=== PATIENT | male | born 1945 | race Caucasian/White ===

== ENCOUNTER → 2020-08-15 13:29 | Outpatient (CLI) | payer MEDICARE, SELFPAY ==
--- NOTE | 2020-08-15 13:34 | CA_ITS ---
APPROVED REPORT Right Lower Extremity Venous Study for DVT. City Recorder: MARCIA LamasT Indications Lower Extremity Pain: Right Lower Extremity Edema: Right Current Smoker CAD EDEMA/PAIN RT CALF,NKI,DM Risk Factors Current Smoker Vein Imaging CFV (R): compressive, spontaneous, phasic, augmentation FEM (R): compressive, spontaneous, phasic, augmentation POP (R): compressive, spontaneous, phasic, augmentation PTV (R): Compressible GSV (R): Compressible Peroneals (R):Compressible GAS (R): Compressible Findings Study suggests no evidence of DVT of the right lower extremity. Study suggests no evidence of SVT of the right lower extremity. 2.8 cm lymph node seen rt groin. Conclusion Study suggests no evidence of DVT of the right lower extremity. Study suggests no evidence of SVT of the right lower extremity. 2.8 cm lymph node seen rt groin. Critical Notification Physician Notified Date: 08/15/2020 Time: 14:12 Physician Name: Hiro Electronically signed by : Cyrus Hsu MD 08/15/2020 14:21:10
== END ==
PROVIDERS: PCP Family Medicine; Visit Provider Family Medicine
DX: M79.661 Pain in right lower leg (principal); R60.0 Localized edema
CPT/HCPCS: 93971

== ENCOUNTER → 2020-09-18 13:39 | Outpatient (CLI) | payer MEDICARE, SELFPAY ==
[2020-09-18 14:19] LABS: Alanine Aminotransferase 28 U/L (12-78); Albumin Level 4.1 g/dl (3.5-5.0); Albumin/Globulin Ratio 1.4 (1.1-1.8); Alkaline Phosphatase 104 U/L (38-126); Anion Gap 15.8 mEq/L (5-15); Aspartate Amino Transferase 32 U/L (17-59); Bilirubin,Total 0.5 mg/dl (0.2-1.3); Blood Urea Nitrogen 18 mg/dl (9-20); Calcium 9.3 mg/dl (8.4-10.2); Carbon Dioxide 28 mmol/L (22.0-30.0); Chloride 100 mmol/L (98-107); Chol/HDL Ratio 2.7 (1-3.5); Cholesterol 84 mg/dl (140-200); Estimated Glomerular Filt Rate 94 ml/min (>60); GFR (African American) 114 ML/MIN (>60); Globulin 2.9 g/dL (1.3-3.2); Glucose 313 mg/dl (74-100); HDL Cholesterol 31 mg/dl (40-60); Potassium 4.8 mmoL/L (3.5-5.1); Sodium 139 mmol/L (136-145); Triglycerides 204 mg/dl (30-150); VLDL Cholesterol 41 mg/dL (0-40)
[2020-09-18 14:20] LABS: Basophils # 0.1 K/mm3 (0-0.2); Basophils % 1.2 % (0.1-2.0); Eosinophils # 0.1 K/mm3 (0.0-0.4); Hematocrit 48.2 % (42.0-52.0); Lymphocytes % 27.5 % (10-50); Mean Corpuscular HGB Conc 33.2 g/dL (31.8-35.4); Mean Corpuscular Hemoglobin 31.8 pg (27.0-31.2); Mean Corpuscular Volume 95.9 fl (80-94); Mean Platelet Volume 10.3 fl (7.4-10.4); Monocytes # 0.4 K/mm3 (0.1-1.0); Monocytes % 5.5 % (1.7-9.3); Neutrophils # 4.6 K/mm3 (1.8-7.8); Neutrophils % 63.8 % (37.0-80.0); Platelet Count 143 K/mm3 (142-424); Red Blood Count 5.03 M/mm3 (4.60-6.20); Red Cell Distribution Width 14.1 % (11.5-17.5); White Blood Count 7.2 K/mm3 (4.8-10.8)
[2020-09-18 14:47] LABS: Direct LDL Cholesterol < 30.00 mg/dL (100-129)
[2020-09-18 14:49] LABS: Hemoglobin A1C 10.9 % (4.0-6.0)
[2020-09-18 14:50] LABS: Thyroid Stimulating Hormone 1.97 uIU/mL (0.465-4.68)
[2020-09-18 20:12] LABS: 25-OH Vitamin D, Total 33.8 ng/mL (30-100)
== END ==
PROVIDERS: Visit Provider Family Medicine
DX: E55.9 Vitamin D deficiency, unspecified (principal); E78.5 Hyperlipidemia, unspecified; I10 Essential (primary) hypertension; I25.10 Atherosclerotic heart disease of native coronary artery without angina pectoris; E11.9 Type 2 diabetes mellitus without complications; Z09 Encounter for follow-up examination after completed treatment for conditions other than malignant neoplasm; Z79.84 Long term (current) use of oral hypoglycemic drugs
CPT/HCPCS: 80053; 80061; 82306; 83036; 84436; 84443; 85025

== ENCOUNTER → 2020-10-09 09:53 | Outpatient (CLI) | payer MEDICARE, SELFPAY ==
--- NOTE | 2020-10-09 | CA_ITS ---
APPROVED REPORT EXAM: Comprehensive 2D, Doppler, and color-flow Echocardiogram Sales Promotion Coordinator: Namrata Cade RT(R) Ht: 5 ft 11 in Wt: 217lbs BSA: 2.18 BP: 97/58 mmHg Indications: CAD, pedal edema, HTN, DM, hyperlipidemia, Abn EKG 2D Dimensions LVOT 2.04 cm (M/F) 1.5-2.5 M-Mode Dimensions RVDd 4.41 cm (0.9-2.6) LA Diam 3.96 cm (1.9-4.0) LVDd 4.79 cm (3.5-5.7) Ao Diam 3.01 cm (2.0-3.7) LVDs 3.52 cm (3.5-5.7) IVSd 0.94 cm (0.6-1.1) PWd 0.89 cm (0.6-1.1) EF (Teich) 51.80% FS 26.50% EDV (Teich) 107.00 mL ESV (Teich) 51.60 mL LV Diastology E Decel Time 353.00 (160-240 msec) E/A Ratio 0.8 MED E' 8.30 (< 7 cm/sec) E'/MED E' Ratio 8.84 (>14) LAT E' 8.90 (<10 cm/sec) E/LAT E' Ratio 8.25 (>14) Mitral Valve MV E Max Rei. 73.00 (40-130 cm/s) MV A Velocity 91.00 (40-130 cm/s) E/A Ratio 0.80 MV Decel. Time 353.00 (160-240 ms) MV PHT 103.00 ms Left Ventricle Left atrium is mildly enlarged, left ventricle is normal size, mild concentric left ventricular hypertrophy, visually estimated ejection fraction 55% with no regional wall motion abnormality, grade 1 diastolic dysfunction seen without tissue Doppler evidence of raise left atrial pressure. Right Ventricle Right atrium and right ventricle mildly enlarged with normal contractility. Aortic Valve Aortic valve is minimally thickened and fibrosed, there is no aortic stenosis or aortic insufficiency. Mitral Valve Mitral valve is grossly normal, there is trace mitral regurgitation. Tricuspid Valve Tricuspid valve grossly normal, there is trace tricuspid regurgitation, tricuspid regurgitation jet velocity is inadequate for calculation of the right ventricular systolic pressure. Pulmonic Valve Pulmonic valve is poorly visualized. Great Vessels Aortic root is normal size. Pericardium No significant pericardial effusion noted. Conclusion 1. Mild biatrial enlargement, normal left ventricular size, mild concentric left ventricular hypertrophy, visually estimated ejection fraction 55% with no regional wall motion abnormality, grade 1 diastolic dysfunction seen without tissue Doppler evidence of raise left atrial pressure. 2. Mildly enlarged right ventricle with normal contractility. 3. No significant pericardial effusion noted. Electronically signed by : Ismael Johnson MD 10/09/2020 16:18:10
--- NOTE | 2020-10-09 09:54 | US_ITS ---
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 Normal waveforms at all other levels on the right. Diminished pulses on the right. Normal pulses and waveforms at all levels on the left. Conclusion RT MC: 0.7 LT MC: 0.9 RT TBI: 0.3 LT TBI: 0.4 Weakened right ankle waveform. Normal waveforms at all other levels on the right. Diminished pulses on the right. Normal pulses and waveforms at all levels on the left. Moderate rt arterial disease Electronically signed by : Prem Hudson MD 10/09/2020 16:05:29
--- NOTE | 2020-10-09 10:47 | NM_ITS ---
APPROVED REPORT Exam: Nuclear Stress Test Indication: CAD, DM, Tobacco use, Family history, Fatigue Patient Location: Outpatient Stress Tech: Juliane ERYES Tech:JAIME Jenkins RT(R)(N) Ht: 5 ft 11 in Wt: 215 lbs Bra Size: 149 HR: 71 bpm BP: 149/68 mmHg BSA: 2.17 m2 BMI: 29.9 History: CAD, DM, Tobacco use, Family history, Fatigue Procedure: Patient received a 0.4 mg of intravenous Lexiscan, resting heart rate 71 bpm, resting blood pressure 149/68 mmHg, with Lexiscan maximum heart rate achived was 84 bpm which is Less than 85 % of the maximum predicted heart rate and blood pressure was 149/68 mmHg. With Lexiscan, patient denied any complaint of chest pain. Electrocardiogram Resting electrocardiogram shows sinus rhythm, with Lexiscan there is less than 1.[address] segment depression noted from the baseline EKG. The EKG portion of the Lexiscan is nondiagnostic. Cardiac Stress and Resting SPECT Images: Cardiac Stress and Resting SPECT images were obtained using technetium 99m Myoview 32.2 mCi stress and 10.30 mCi at rest. Patient unable to lay on belly for Prone images. Gated SPECT for analysis of segmental wall motion and calculation of the ejection fraction also done. Cardiac stress and resting SPECT images show moderate to large sized area of reversible ischemia involving the inferior and inferior apical wall, there is transient ischemic dilatation of the left ventricle is also seen. Computer derived ejection fraction is 66% with no regional wall motion abnormality, right ventricle is normal size and contractility. Conclusion: 1. The EKG portion of the Lexiscan is nondiagnostic. 2. Scintigraphic evidence of reversible ischemia involving the inferior and inferior apical wall, there is transient ischemic dilatation of the left ventricle seen, raising the concerns for presence of multivessel coronary artery disease. Computer derived ejection fraction is 66% with no regional wall motion abnormality, right ventricle is normal size and contractility. 3. Abnormal Lexiscan Myoview study. Electronically signed by : Ismael Johnson MD 10/09/2020 15:03:35
--- NOTE | 2020-10-09 13:39 | CA_ITS ---
APPROVED REPORT Exam: Pharmacologic Technologist: Astrid Cruz, Ht: 5 ft 11 in Wt: 217 lbs BSA: 2.18 m2 HR: 68 bpm BP: 149/68 mmHg Rhythm: NSR, 1 AVB Medical History Medical History: HTN, Hyperlipidemia, Diabetes Medications: Amlodipine,,,,, Lisinopril,,,,, Aspirin,,,,, Metformin,,,,, Metoprolol Tartrate,,,,, Atorvastatin,,,,, GlYBURIDE,,,,, Pregabalin,,,,, DApagliflozin,,,,, Isosorbide Monoitrate ER,,,,, Furosemide,,,,, OxYCODONE-ACETAMINOPHEN,,,,, Allergies: No known drug allergies Cardiac Risk Factors: HTN, Hyperlipidemia, Smoking Stress Test Details Test: LEXISCAN HR Resting HR: 71 bpm Max Heart Rate (APMHR): 144.319115 bpm Max HR Achieved: 84 bpm Target HR (85% APMHR): 122.604925 bpm % of APMHR: 58.33 Recovery HR: 80 bpm BP Resting BP: 149/68 mmHg Max BP: 149/68 mmHg Recovery BP: 135.0/63.0 mmHg ECG Resting ECG: NSR, 1 AVB Clinical Exercise duration: 04:00 min Highest Stage Achieved: Stress ECG Conclusion PT HAD MILD VELAZQUEZ. NO CP. NO ARRHYTHMIAS/ECTOPY. NO SIGNIFICANT ST-T CHANGES. UNREMARKABLE LEXISCAN STRESS. MYOVIEW IMAGES REPORTED SEPARATELY. Electronically signed by : Ismael Johnson MD 10/09/2020 14:48:38
== END ==
PROVIDERS: PCP Family Medicine; Visit Provider Urology
DX: E11.9 Type 2 diabetes mellitus without complications (principal); E78.5 Hyperlipidemia, unspecified; I10 Essential (primary) hypertension; I25.10 Atherosclerotic heart disease of native coronary artery without angina pectoris; L81.9 Disorder of pigmentation, unspecified; M47.816 Spondylosis without myelopathy or radiculopathy, lumbar region; R94.31 Abnormal electrocardiogram [ECG] [EKG]; Z95.5 Presence of coronary angioplasty implant and graft; Z79.84 Long term (current) use of oral hypoglycemic drugs; R60.0 Localized edema; I73.9 Peripheral vascular disease, unspecified
CPT/HCPCS: 78452; 93017; 93306; 93923; A9502; J2785

== ENCOUNTER → 2020-11-18 14:00 | Outpatient (CLI) | payer MEDICARE, SELFPAY ==
[2020-11-18 17:16] LABS: Creatinine,Urine Random 19 mg/dL (Not Estab.)
[2020-11-18 17:18] LABS: Microalbumin < 6.000 mg/L (0-16.7)
== END ==
PROVIDERS: Visit Provider Family Medicine
DX: E11.9 Type 2 diabetes mellitus without complications (principal); Z79.84 Long term (current) use of oral hypoglycemic drugs
CPT/HCPCS: 82043; 82570

== ENCOUNTER → 2020-12-22 18:10 | Outpatient (CLI) | payer MEDICARE, SELFPAY | PROVIDERS: Visit Provider Family Medicine | DX: N39.0 Urinary tract infection, site not specified (principal) | CPT/HCPCS: 87086 ==

== ENCOUNTER 2021-01-15 09:46 | Day surgery (SDC) | payer MEDICARE, SELFPAY ==
[2021-01-15] VITALS (11 sets, daily range): BP systolic 113–140; BP diastolic 50–77; PULSE 74–81; RESP 20; O2SAT 90–100; BMI 29.4
[2021-01-15 09:55] LABS: Coronavirus 19, PCR Not Detected (NotDetected); Influenza A, PCR Not Detected (NotDetected); Influenza B, PCR Not Detected (NotDetected)
[2021-01-15 10:07] LABS: Basophils # 0.1 K/mm3 (0-0.2); Basophils % 1.5 % (0.1-2.0); Eosinophils # 0.2 K/mm3 (0.0-0.4); Eosinophils % 2.8 % (0.1-12.0); Hematocrit 45.5 % (42.0-52.0); Lymphocytes # 1.5 K/mm3 (0.7-4.5); Lymphocytes % 22.6 % (10-50); Mean Corpuscular HGB Conc 33.1 g/dL (31.8-35.4); Mean Corpuscular Hemoglobin 32.2 pg (27.0-31.2); Mean Corpuscular Volume 97.4 fl (80-94); Mean Platelet Volume 9.6 fl (7.4-10.4); Monocytes # 0.4 K/mm3 (0.1-1.0); Monocytes % 6.1 % (1.7-9.3); Neutrophils # 4.3 K/mm3 (1.8-7.8); Platelet Count 165 K/mm3 (142-424); Red Blood Count 4.67 M/mm3 (4.60-6.20); Red Cell Distribution Width 13.9 % (11.5-17.5); White Blood Count 6.5 K/mm3 (4.8-10.8)
--- NOTE | 2021-01-15 10:14 | IR_ITS ---
APPROVED REPORT Patient Location: Outpatient PROCEDURES Left heart catheterization Left ventriculogram Selective coronary angiogram INDICATION Known coronary artery disease, Preoperative evaluation, Abnormal Myoview Informed consent was obtained prior to the procedure. COMPLICATIONS none Estimated Blood Loss: less than 10 ml TECHNIQUE One percent lidocaine used to anesthetize the right anterior aspect of the wrist. The right radial artery was accessed via the Seldinger technique. A 6 Malian sheath was placed in the right radial artery. 2.5 mg of verapamil, 800 mcg of nitroglycerin, 1mg Lidocaine and 5000 U Heparin were given through the arterial sheath. The trap catheter was also used to perform left heart catheterization, left ventriculogram and selective coronary angiogram. At the end of the procedure the sheath was removed good hemostasis was achieved using Traclet band, patient was transferred to the postop holding area in stable condition. ANGIOGRAPHIC RESULTS The left main artery Normal The left anterior descending artery Has mild proximal 10 to 20% luminal irregularities with a mid vessel 30% concentric stenosis The circumflex artery Is a nondominant vessel giving off a small and medium sized obtuse marginal artery. Proximal to the 1st obtuse marginal artery there is a stent which has smooth concentric 80% in-stent restenosis accompanied by distal TONY-3 flow. The stent in the circumflex artery is patent in its proximal segment and then has a concentric 90% stenosis and a 1.5 mm vessel still accompanied by TONY III flow The right coronary artery Is a large dominant vessel and has proximal 20% stenoses mid vessel 30% diffuse stenoses The CASTLE ventriculogram reveals Normal 65% The left ventricular end-diastolic pressure 15 mmHg IMPRESSION Severe single-vessel coronary disease in a small nondominant circumflex artery as described above Widely patent LAD with a widely patent dominant right coronary artery Normal ejection fraction with normal left ventricular diastolic pressure PLAN 1. Patient is not experiencing angina pectoris therefore there is no benefit to revascularizing a nondominant circumflex artery preoperatively. Patient is still in low and acceptable risk to proceed with outpatient cystoscopy as well as cystoscopic mediated therapy such as bladder scrapings and/or debridement of malignancy. 2. Revascularizing the circumflex artery with only be a vanity procedure and would not reduce patient's perioperative risk, which is already low despite the above lesions, and would further delay surgery for gross hematuria by ongoing usage of dual antiplatelet therapy which could be potentially dangerous 3. Based on the normal LV function, patient being asymptomatic, low risk surgical procedure, and nondominant single-vessel disease, patient is a low risk to proceed with surgery and should proceed as soon as technically feasible by the performing surgery and surgeon 4. Continue risk factor modification 5. Recommend perioperative beta-blockers 6. If patient develops recurrent recalcitrant angina pectoris in the future refractory to maximized antianginal medications, only then what I recommend any form of percutaneous revascularization. 7. I discussed the case with Dr. Lazar and encouraged patient to proceed with surgery Electronically signed by : Adam Rainey MD 01/15/2021 12:38:52
[2021-01-15 10:41] LABS: Anion Gap 13.7 mEq/L (5-15); Blood Urea Nitrogen 16 mg/dl (9-20); Calcium 9.3 mg/dl (8.4-10.2); Carbon Dioxide 29 mmol/L (22.0-30.0); Chloride 101 mmol/L (98-107); Creatinine Clearance Estimated 85 mL/min (50-200); Estimated Glomerular Filt Rate 94 ml/min (>60); GFR (African American) 114 ML/MIN (>60); Glucose 255 mg/dl (74-100); Potassium 4.7 mmoL/L (3.5-5.1); Sodium 139 mmol/L (136-145)
== END 2021-01-15 15:06 | disposition home or self-care (01) ==
LOC: CATHLAB 09:46
PROVIDERS: Physician Assistant; Visit Provider Internal Medicine
DX: E11.9 Type 2 diabetes mellitus without complications (principal); E78.5 Hyperlipidemia, unspecified; I10 Essential (primary) hypertension; I25.10 Atherosclerotic heart disease of native coronary artery without angina pectoris; R60.9 Edema, unspecified; R94.31 Abnormal electrocardiogram [ECG] [EKG]; R94.39 Abnormal result of other cardiovascular function study; Z95.5 Presence of coronary angioplasty implant and graft; Z79.899 Other long term (current) drug therapy; Z79.4 Long term (current) use of insulin; T82.855A Stenosis of coronary artery stent, initial encounter; F17.210 Nicotine dependence, cigarettes, uncomplicated; Z20.822 Contact with and (suspected) exposure to COVID-19; Y83.1 Surgical operation with implant of artificial internal device as the cause of abnormal reaction of the patient, or of later complication, without mention of misadventure at the time of the procedure
CPT/HCPCS: 36415; 80048; 85025; 93458; 99152; C1725; C1769; C9803; J1644; Q9967; U0003; U0005

== ENCOUNTER → 2022-10-20 12:00 | Outpatient (CLI) | payer MEDICARE, SELFPAY ==
[2022-10-20 19:16] LABS: Basophils % 0.4 % (0.1-2.0); Eosinophils # 0.1 K/mm3 (0.0-0.4); Eosinophils % 1.9 % (0.1-12.0); Hematocrit 48.2 % (42.0-52.0); Hemoglobin 15.5 g/dL (14.1-18.0); Lymphocytes # 1.8 K/mm3 (0.7-4.5); Lymphocytes % 26.7 % (10-50); Mean Corpuscular HGB Conc 32.1 g/dL (31.8-35.4); Mean Corpuscular Hemoglobin 30.9 pg (27.0-31.2); Mean Corpuscular Volume 96.3 fl (80-94); Mean Platelet Volume 9.8 fl (7.4-10.4); Monocytes # 0.5 K/mm3 (0.1-1.0); Monocytes % 6.5 % (1.7-9.3); Neutrophils # 4.4 K/mm3 (1.8-7.8); Neutrophils % 64.5 % (37.0-80.0); Platelet Count 233 K/mm3 (142-424); Red Blood Count 5.01 M/mm3 (4.60-6.20); White Blood Count 6.9 K/mm3 (4.8-10.8)
[2022-10-20 20:10] LABS: Alanine Aminotransferase 21 U/L (12-78); Albumin Level 3.9 g/dl (3.5-5.0); Albumin/Globulin Ratio 1.2 (1.1-1.8); Alkaline Phosphatase 100 U/L (38-126); Anion Gap 15.9 mEq/L (5-15); Aspartate Amino Transferase 25 U/L (17-59); Bilirubin,Total 0.4 mg/dl (0.2-1.3); Blood Urea Nitrogen 13 mg/dl (9-20); Calcium 9.3 mg/dl (8.4-10.2); Carbon Dioxide 27 mmol/L (22.0-30.0); Chloride 96 mmol/L (98-107); Chol/HDL Ratio 2.3 (1-3.5); Cholesterol 84 mg/dl (140-200); Estimated Glomerular Filt Rate 109 ml/min (>60); GFR (African American) 132 ML/MIN (>60); Globulin 3.2 g/dL (1.3-3.2); Glucose 268 mg/dl (74-100); HDL Cholesterol 37 mg/dl (40-60); Potassium 4.9 mmoL/L (3.5-5.1); Sodium 134 mmol/L (136-145); Total Protein,Serum 7.1 g/dl (6.3-8.2); Triglycerides 84 mg/dl (30-150); VLDL Cholesterol 17 mg/dL (0-40)
[2022-10-20 20:21] LABS: Direct LDL Cholesterol 34.46 mg/dL (100-129)
== END ==
PROVIDERS: PCP Family Medicine; Visit Provider Family Medicine
DX: I10 Essential (primary) hypertension (principal); Z76.89 Persons encountering health services in other specified circumstances; L60.3 Nail dystrophy; R73.09 Other abnormal glucose
CPT/HCPCS: 80053; 80061; 83036; 85025

== ENCOUNTER → 2022-11-17 09:05 | Outpatient (CLI) | payer MEDICARE, SELFPAY ==
--- NOTE | 2022-11-17 09:10 | CA_ITS ---
APPROVED REPORT EXAM: Comprehensive 2D, Doppler, and color-flow Echocardiogram Residential Door Unit Installer: Sole Fernandez CRT Ht: 6 ft 0 in Wt: 205lbs BSA: 2.15 BP: 135/54 mmHg Indications: Abnormal ECG, Pre-Op Clearance, Shortness of Breath, CAD 2D Dimensions LVOT 1.96 cm (M/F) 1.5-2.5 LA Volume 59.10 mL LA Volume Index 26.70 mL/m2 (M/F) 16-34 M-Mode Dimensions RVDd 3.56 cm (0.9-2.6) LA Diam 4.11 cm (1.9-4.0) LVDd 4.45 cm (3.5-5.7) Ao Diam 3.81 cm (2.0-3.7) LVDs 2.76 cm (3.5-5.7) IVSd 1.53 cm (0.6-1.1) PWd 0.51 cm (0.6-1.1) EF (Teich) 68.40% FS 38.00% EDV (Teich) 90.10 mL TAPSE 2.17 (<1.7) ESV (Teich) 28.50 mL LV Diastology E Decel Time 423.00 (160-240 msec) E/A Ratio 0.76 MED E' 6.10 (< 7 cm/sec) MED A' 8.20 cm/s E'/MED E' Ratio 12.36 (>14) LAT E' 8.10 (<10 cm/sec) LAT A' 10.50 cm/s E/LAT E' Ratio 9.31 (>14) Aortic Valve AO Peak GR. 8.50 mmHg Mitral Valve MV A Velocity 100.00 (40-130 cm/s) E/A Ratio 0.76 MV Decel. Time 423.00 (160-240 ms) Pulmonary Valve PV Peak Velocity 93.00 (50-150 cm/s) Tricuspid Valve TR P. Velocity 272.00 cm/s RAP Estimate 10.00 mmHg RVSP 39.50 mmHg Left Ventricle The left ventricle is normal size. The left ventricular systolic function is normal. The left ventricular ejection fraction is within the normal range. There is increased LV wall thickness. There is normal LV segmental wall motion. Grade I diastolic dysfunction is present. LVEF is 55%. Right Ventricle The right ventricle is normal size. The right ventricular systolic function is normal. Atria The left atrium size is normal. The right atrium size is normal. There is no Doppler evidence of interatrial shunt. Aortic Valve The aortic valve is mildly thickened. There is no aortic valvular stenosis. Trace aortic regurgitation. Mitral Valve The mitral valve leaflets are mildly thickened. No evidence of mitral valve stenosis. Trace mitral regurgitation. Tricuspid Valve The tricuspid valve leaflets are thin and pliable. Trace tricuspid regurgitation. RVSP is normal. Pulmonic Valve The pulmonary valve is normal in structure. Trace pulmonic regurgitation. Great Vessels The aortic root is normal in size. The ascending aorta is normal in size. IVC is normal in size and collapses >50% with inspiration. Pericardium There is no pericardial effusion. A fat pad is noted. Other Information Study Quality: Fair Conclusion Normal biventricular systolic function. Grade I diastolic dysfunction. No significant valvular stenosis or regurgitation. Electronically signed by : Annika Davis, 11/18/2022 12:16:21
== END ==
PROVIDERS: PCP Family Medicine; Visit Provider Physician Assistant
DX: C67.9 Malignant neoplasm of bladder, unspecified (principal); E11.9 Type 2 diabetes mellitus without complications; E78.5 Hyperlipidemia, unspecified; I10 Essential (primary) hypertension; I25.10 Atherosclerotic heart disease of native coronary artery without angina pectoris; Z01.810 Encounter for preprocedural cardiovascular examination; Z72.0 Tobacco use; Z79.4 Long term (current) use of insulin; Z79.84 Long term (current) use of oral hypoglycemic drugs
CPT/HCPCS: 93306

== ENCOUNTER → 2023-01-26 08:38 | Outpatient (CLI) | payer MEDICARE, SELFPAY ==
[2023-01-26 19:24] LABS: Alanine Aminotransferase 23 U/L (12-78); Albumin Level 3.8 g/dl (3.5-5.0); Albumin/Globulin Ratio 1.2 (1.1-1.8); Alkaline Phosphatase 77 U/L (38-126); Anion Gap 9.9 mEq/L (5-15); Aspartate Amino Transferase 30 U/L (17-59); Bilirubin,Total 0.5 mg/dl (0.2-1.3); Blood Urea Nitrogen 21 mg/dl (9-20); Calcium 8.8 mg/dl (8.4-10.2); Carbon Dioxide 32 mmol/L (22.0-30.0); Chloride 98 mmol/L (98-107); Estimated Glomerular Filt Rate 109 ml/min (>60); GFR (African American) 132 ML/MIN (>60); Globulin 3.1 g/dL (1.3-3.2); Glucose 169 mg/dl (74-100); Potassium 4.9 mmoL/L (3.5-5.1); Sodium 135 mmol/L (136-145); Total Protein,Serum 6.9 g/dl (6.3-8.2)
[2023-01-26 19:32] LABS: Hemoglobin A1C 10.5 % (4.0-6.0)
== END ==
LOC: LAB.DROPOF 01-27 08:39
PROVIDERS: PCP Family Medicine; Visit Provider Family Medicine
DX: Z79.4 Long term (current) use of insulin; Z79.84 Long term (current) use of oral hypoglycemic drugs; E11.65 Type 2 diabetes mellitus with hyperglycemia
CPT/HCPCS: 80053; 83036

== ENCOUNTER 2023-08-24 15:54 | Observation (INO) | payer MEDICARE, SELFPAY ==
[2023-08-24] VITALS (12 sets, daily range): BP systolic 118–196; BP diastolic 57–96; PULSE 60–63; RESP 16–19; TEMP 36.8–37; O2SAT 91–98; BMI 20.3; BMI 28.5
--- NOTE | 2023-08-24 07:14 | IR_ITS ---
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 COMPLICATIONS None Estimated Blood Loss: Less than 10 mls TECHNIQUE One percent lidocaine used to anesthetize the right anterior aspect of the wrist. The right radial artery was accessed via the Seldinger technique. A 6 Singaporean sheath was placed in the right radial artery. 2.5 mg of Verapamil, 800 mcg of nitroglycerin, 1mg Lidocaine and 5000 U Heparin were given through the arterial sheath. A PV multi curve catheter was placed in the distal abdominal aorta where distal abdominal aortography was performed. The catheter was then placed into the right common iliac artery right common iliac artery antegrade angiography was performed with unilateral runoff to the right foot. This was repeated into the left common iliac artery with unilateral runoff to the left foot. Following this 1% lidocaine was used anesthetize the right groin the right femoral artery was accessed via the Salinger technique and a 6 Singaporean sheath was placed in the right femoral artery. A rim catheter was used to cannulate the left common iliac artery where an advantage wire was then placed under fluoroscopic guidance into the left superficial femoral artery. A 45 cm 7 Singaporean sheath was advanced and angiography was performed. This demonstrated there was only moderate disease in the left SFA. Digital subtraction/masking was not able to be performed with the left leg runoff therefore the SFA disease was initially overestimated. Once repeat angiography was performed it was decided not to proceed with intervention involving the left SFA. At this point the catheter was pulled back and a 9 mm x 27 mm balloon mounted bare-metal stent was deployed at 12 елена and left common iliac artery reducing the calcified cleft like stenosis to 0%. Excellent angiographic results were obtained. At the end the procedure the apparatus was removed the groin is reprepped closure change sheath was removed and hemostasis was achieved using Perclose device patient was transferred to the postop putting in stable addition ANGIOGRAPHIC RESULTS Distal abdominal aorta is tortuous but widely patent Right common iliac artery has 20 and 30% calcifications. The right internal iliac artery is patent the right external iliac artery has 20 to 30% calcifications. The right common femoral artery is calcified with 20% calcifications. The right profunda femoris artery is widely patent. The right superficial femoral artery has 90% calcified disease at Cb's canal. The right popliteal artery is patent in the proximal and mid segment and then distally has calcified 50 and 60% plaque. The right anterior tibialis artery is subtotally occluded the right peroneal artery appears to be widely patent into the right foot and then collateralizes the anterior and posterior tibialis artery. The right posterior tibialis artery is occluded Left common iliac artery has calcified 60 to 70% eccentric plaque. The left internal iliac artery appears occluded the left external iliac artery is patent the left profunda femoris artery is patent. The left superficial femoral artery has diffuse 50 and 60% stenoses. The left popliteal artery is widely patent. Distally below the knee the anterior and posterior tibialis arteries appear subtotally occluded as does the peroneal artery. 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 Aspirin Plavix 2. Patient can be brought back to the [facility] in 3 weeks and undergo left groin access with plans to perform shockwave lithotripsy and drug-coated balloon angioplasty to the right SFA/popliteal artery 3. Infrageniculate disease is best managed medically 4. Risk factor modification Electronically signed by : Adam Rainey MD 08/24/2023 14:50:39
[2023-08-24 09:25] LABS: Basophils # 0.1 K/mm3 (0-0.2); Basophils % 1.6 % (0.1-2.0); Eosinophils # 0.2 K/mm3 (0.0-0.4); Eosinophils % 2.5 % (0.1-12.0); Hematocrit 46.6 % (42.0-52.0); Hemoglobin 15.3 g/dL (14.1-18.0); Lymphocytes # 1.5 K/mm3 (0.7-4.5); Lymphocytes % 23.7 % (10-50); Mean Corpuscular HGB Conc 32.7 g/dL (31.8-35.4); Mean Corpuscular Hemoglobin 31.3 pg (27.0-31.2); Mean Corpuscular Volume 95.7 fl (80-94); Mean Platelet Volume 9.6 fl (7.4-10.4); Monocytes # 0.4 K/mm3 (0.1-1.0); Monocytes % 5.8 % (1.7-9.3); Neutrophils # 4.2 K/mm3 (1.8-7.8); Neutrophils % 66.4 % (37.0-80.0); Platelet Count 194 K/mm3 (142-424); Red Blood Count 4.87 M/mm3 (4.60-6.20); Red Cell Distribution Width 14.9 % (11.5-17.5); White Blood Count 6.4 K/mm3 (4.8-10.8)
[2023-08-24 09:28] LABS: Chloride 99 mmol/L (98-107); Sodium 134 mmol/L (136-145)
[2023-08-24 09:29] LABS: Potassium 4.9 mmoL/L (3.5-5.1)
[2023-08-24 09:31] LABS: Blood Urea Nitrogen 11 mg/dl (9-20); Creatinine Clearance Estimated 81 mL/min (50-200); Estimated Glomerular Filt Rate 130 ml/min (>60); GFR (African American) 157 ML/MIN (>60)
[2023-08-24 09:32] LABS: Anion Gap 9.9 mEq/L (5-15); Carbon Dioxide 30 mmol/L (22.0-30.0); Glucose 320 mg/dl (74-100)
[2023-08-24] MEDS: 0.9 % SODIUM CHLORIDE 500 ML 25 ML IV (10:54)
[2023-08-24] MEDS: NITROGLYCERIN 800MCG/8ML SYR (CATH LAB) 800 MCG IA (10:54)
[2023-08-24] MEDS: HEPARIN 1,000 UNITS/500ML NS (CATH LAB) 3000 UNIT IV (10:54)
[2023-08-24] MEDS: HEPARIN 1,000 UNITS/ML 10ML VIAL (CATH LAB) 10000 UNIT IV ×2 (10:55→11:39)
[2023-08-24] MEDS: LIDOCAINE 1% 10ML MDV 20 ML IJ (10:56)
[2023-08-24] MEDS: diphenhydrAMINE 50MG/ML VIAL 50 MG IV (10:56)
[2023-08-24] MEDS: VERAPAMIL 2.5MG/ML 2ML VIAL 2.5 MG IV (10:56)
[2023-08-24] MEDS: MIDAZOLAM HCL 1MG/1ML 5ML VIAL 1 MG IV (11:55)
[2023-08-24] MEDS: FENTANYL 100MCG/2ML VIAL 50 MCG IV ×2 (11:55→11:58)
[2023-08-24] MEDS: CLOPIDOGREL 300MG TABLET 300 MG PO (12:00)
[2023-08-24] MEDS: MORPHINE 4MG/ML SYRINGE 4 MG IV (13:33)
--- NOTE | 2023-08-24 14:22 | SUR.PHASEII ---
Urine virgil albarran MD notified, no new orders.
[2023-08-24] MEDS: IOPAMIDOL-250 (51%) 100ML BOT 200 ML IV (15:00)
[2023-08-24 15:01] LABS: CATHL Activated Clotting Time 338 SEC (74-125)
--- NOTE | 2023-08-24 15:29 | SUR.PHASEII ---
PATIENT HAD 2200ML URINE OUTPUT- BRIGHT RED- MD AWARE
--- NOTE | 2023-08-24 16:05 | PC.NURSE ---
arrived by w/c from microbiology lab manager
[2023-08-24 17:37] LABS: Basophils # 0.1 K/mm3 (0-0.2); Basophils % 1.1 % (0.1-2.0); Eosinophils # 0.1 K/mm3 (0.0-0.4); Eosinophils % 1.3 % (0.1-12.0); Hematocrit 49.8 % (42.0-52.0); Hemoglobin 15.9 g/dL (14.1-18.0); Lymphocytes # 1.5 K/mm3 (0.7-4.5); Lymphocytes % 15.8 % (10-50); Mean Corpuscular Hemoglobin 30.9 pg (27.0-31.2); Mean Corpuscular Volume 96.7 fl (80-94); Mean Platelet Volume 8.9 fl (7.4-10.4); Monocytes # 0.5 K/mm3 (0.1-1.0); Monocytes % 4.9 % (1.7-9.3); Neutrophils # 7.1 K/mm3 (1.8-7.8); Neutrophils % 76.9 % (37.0-80.0); Platelet Count 211 K/mm3 (142-424); Red Blood Count 5.15 M/mm3 (4.60-6.20); Red Cell Distribution Width 14.7 % (11.5-17.5); White Blood Count 9.3 K/mm3 (4.8-10.8)
[2023-08-24 17:51] LABS: POC Glucose,Bedside 257 (70-110)
--- NOTE | 2023-08-24 17:57 | PC.WOUNDNOTE ---
SCABBED OVER SORE TO TOP OF RIGHT FOOT
--- NOTE | 2023-08-24 17:59 | PC.NURSE ---
A&OX4. TOLERATING RA WELL. PT ARRIVED TO FLOOR VIA HIS ROLLATOR PER CHAR [employer]YOR TENDER CELLAR STAFF. SINCE ARRIVAL TO FLOOR, PATIENT HAS HAD ONE EPISODE OF BRIGHT RED BLOODY URINE, SMALL BLOOD CLOTS NOTED, LARGE AMOUNT. AWARE. PT HAS 2 CATH SITES, ONE TO THE RIGHT GROIN AND ONE TO THE RIGHT WRIST. BOTH SITES CDI. PT STATES THEY ARE SORE. PATIENT SITTING UP IN BED AT THIS TIME, EATING SUPPER. IV ESTABLISHED TO LEFT FA. PATIENT HAS BEEN VERY AGITATED AND UPSET WITH SITUATION. AWAITING SON TO GET HERE TO GO OVER POC AND HOME MED LIST. BED ALARM ON. VSS.
--- NOTE | 2023-08-24 18:18 | P.HP_ITS ---
History of Present Illness *Admission Date: 08/24/23 *Reason for visit:: hematuria *History of present illness: Patient is a 78-year-old male with past medical history of diabetes mellitus hypertension, CAD hyperlipidemia who presented to this hospital from [facility] for hematuria. Patient did receive procedure of stenting for peripheral artery disease of left common iliac artery. Patient noticed hematuria after he played urination. Patient mentions he has never noticed hematuria in the past, he denies dysuria, he mentions blood is bright red and fresh. Patient did receive heparin during the procedure and was given an aspirin and Plavix. [facility] Disclaimer: The information contained in this section may have been updated after the patient was seen, as this information can be updated by other users. Medical History (Updated 08/24/23 @ 18:22 by Erin Dela Cruz MD) Wound of right foot Encounter for pre-operative cardiovascular clearance Abnormal EKG Abnormal cardiovascular stress test Edema Coronary artery disease Surgical History Hx of heart artery stent History of amputation of toe Family History Other Cancer Coronary artery disease Diabetes Social History Smoking Status: Current every day smoker tobacco type: cigarettes packs per day: 2 alcohol intake: never substance use type: denies use current occupational status: retired Travel in the last 8 weeks: None household members: children Review of Systems Review of Systems Review of systems:: pertinent systems reviewed and negative unless documented below Meds Home Medications and Allergies Home Medications Medication Instructions Recorded Confirmed Type aspirin 81 mg tablet,delayed 81 mg PO DAILY heart health 05/22/20 08/09/23 History release (Adult Aspirin Regimen) dapagliflozin propanediol 5 mg 5 mg PO DAILY Diabetes #30 tabs 04/09/21 08/09/23 Rx tablet pen needle, diabetic 31 gauge x #100 ea 01/14/22 08/09/23 Rx 3/16 (Unifine Pentips) lisinopril 10 mg tablet See Rx Instructions .Route 01/12/23 08/09/23 Rx .COMPLEX #90 tabs blood-glucose meter,continuous #1 ea 01/27/23 08/09/23 Rx (Dexcom G7 Electrical Parts Reconditioner) blood-glucose sensor (Dexcom G7 #3 ea 01/31/23 08/09/23 Rx Sensor device) cilostazol 50 mg tablet See Rx Instructions .Route 03/01/23 08/09/23 Rx .COMPLEX #60 tabs atorvastatin 40 mg tablet See Rx Instructions .Route 03/09/23 08/09/23 Rx .COMPLEX #90 tabs insulin lispro 200 unit/mL (3 mL) See Rx Instructions .Route 03/30/23 08/09/23 Rx subcutaneous pen (Humalog KwikPen .COMPLEX #6 mL U-200 Insulin) insulin detemir U-100 100 unit/mL 65 unit (0.65 mL) SQ HS #15 mL 04/04/23 08/09/23 Rx (3 mL) subcutaneous pen (Levemir FlexPen) metoprolol tartrate 50 mg tablet See Rx Instructions .Route 04/25/23 08/09/23 Rx .COMPLEX #180 tabs isosorbide mononitrate 30 mg 30 mg PO DAILY Chest pain #90 tabs 05/12/23 08/09/23 Rx tablet,extended release 24 hr pregabalin 150 mg capsule 300 mg (2 x 150 mg) PO BID nerve 06/29/23 08/09/23 Rx pain #120 caps amlodipine 5 mg tablet 5 mg PO DAILY High blood pressure 08/05/23 08/09/23 Rx #90 tabs metformin 500 mg tablet See Rx Instructions .Route 08/09/23 08/09/23 Rx .COMPLEX #270 tabs clopidogrel 75 mg tablet (Plavix) 75 mg PO DAILY #30 tabs 08/24/23 Rx morphine 15 mg tablet,extended See Rx Instructions .Route Q12H 08/24/23 Rx release (MS Contin) #90 tabs oxycodone 5 mg tablet 5 mg PO Q4H PRN breakthrough pain 08/24/23 Rx #90 tabs New Prescriptions to Start Prescriptions: clopidogrel [Plavix] Aadm Rainey Allergies Allergy/AdvReac Type Severity Reaction Status Date / Time No Known Allergies Allergy Verified 08/09/23 14:37 Exam Data for Last 24 hours Vital signs and Labs for Last 24 Hours: Temp Pulse Resp BP Pulse Ox O2 Del Method 98.6 F 63 19 118/74 96 Room Air 08/24/23 16:48 08/24/23 16:48 08/24/23 16:48 08/24/23 16:48 08/24/23 16:48 08/24/23 17:52 Laboratory Results - last 24 hr 08/24/23 09:12: WBC 6.4, RBC 4.87, Hgb 15.3, Hct 46.6, MCV 95.7 H, MCH 31.3 H, MCHC 32.7, RDW 14.9, Plt Count 194, MPV 9.6, Neut % (Auto) 66.4, Lymph % (Auto) 23.7, Becker % (Auto) 5.8, Eos % (Auto) 2.5, Baso % (Auto) 1.6, Neut # (Auto) 4.2, Lymph # (Auto) 1.5, Becker # (Auto) 0.4, Eos # (Auto) 0.2, Baso # (Auto) 0.1, Sodium 134 L, Potassium 4.9, Chloride 99, Carbon Dioxide 30, Anion Gap 9.9, BUN 11, Creatinine 0.60 L, Estimated Creat Clear 81, Estimated GFR 130, Est GFR ( Amer) 157, Glucose 320 H, Calcium 9.0 08/24/23 11:45: Activated Clotting Time 338 H* 08/24/23 17:24: POC Glucose 257 H 08/24/23 17:25: WBC 9.3 D, RBC 5.15, Hgb 15.9, Hct 49.8, MCV 96.7 H, MCH 30.9, MCHC 32.0, RDW 14.7, Plt Count 211, MPV 8.9, Neut % (Auto) 76.9, Lymph % (Auto) 15.8, Becker % (Auto) 4.9, Eos % (Auto) 1.3, Baso % (Auto) 1.1, Neut # (Auto) 7.1, Lymph # (Auto) 1.5, Becker # (Auto) 0.5, Eos # (Auto) 0.1, Baso # (Auto) 0.1 I & O for Last 24 hours: Intake & Output 08/21/23 08/22/23 08/23/23 08/24/23 23:59 23:59 23:59 23:59 Intake Total 1000 / 1000 Output Total 2400 / 2400 Balance -1400 / -1400 Weight 95.254 kg Constitutional Constitutional: no acute distress *Routine HEENT Exam Head: Present normocephalic Eye: Present EOMI and PERRL ENT: Present mucous membranes moist *Routine Neck Exam Neck: Present supple; Absent lymphadenopathy *Routine Respiratory Exam Respiratory: Present CTA bilaterally *Routine Cardiovascular Exam Cardiovascular: Present RRR *Routine Abdominal Exam Abdominal: Present soft and normoactive bowel sounds; Absent tenderness *Routine Rectal Exam Rectal:: deferred *Routine Genitalia Exam Genitalia:: deferred *Routine Extremities Exam Extremities: Absent cyanosis, clubbing or edema *Routine Skin Exam Skin: Present warm; Absent rash *Routine Neurological Exam Neurological: Present alert and oriented X3 Assessment and Plan *Assessment and plan (1) Anxiety: Status: Acute Category: Medical Code(s): F41.9 - Anxiety disorder, unspecified (2) Peripheral vascular disease: Status: Acute Category: Medical Code(s): I73.9 - Peripheral vascular disease, unspecified (3) Bladder cancer: Status: Acute Qualifiers: Bladder location: unspecified site Qualified Code(s): C67.9 - Malignant neoplasm of bladder, unspecified Category: Medical Code(s): C67.9 - Malignant neoplasm of bladder, unspecified (4) Essential hypertension: Status: Chronic Category: Medical Code(s): I10 - Essential (primary) hypertension (5) Hematuria: Status: Acute Category: Medical Code(s): R31.9 - Hematuria, unspecified Plan Patient is a 78-year-old male with past medical history of diabetes mellitus hypertension, CAD hyperlipidemia who presented to this hospital from [place] [place] for hematuria. Patient did receive procedure of stenting for peripheral artery disease of left common iliac artery. Patient noticed hematuria after he played urination. Patient mentions he has never noticed hematuria in the past, he denies dysuria, he mentions blood is bright red and fresh. Patient did receive heparin during the procedure and was given an aspirin and Plavix. Assessment and plan Hematuria History of bladder cancer PAD s/p stenting consult cardiology Plan Patient would benefit from urology services which are not available at this hospital, patient was informed however patient is reluctant to be transferred, patient has urologist at [facility]. Patient has a history of bladder cancer, patient can have traumatic Forrest inse rtion which can make bleeding worse, patient was informed any of these if Forrest insertion Urology services not available, patient declined to be transferred at this time Will continue to monitor hemoglobin Monitor H&H Patient had bare-metal stent, will continue aspirin Plavix for now DVT prophylaxis-SCDs for now, patient was given heparin
--- NOTE | 2023-08-24 18:43 | P.EN_ITS ---
patient son arrived and requesting transfer to [facility] for higher level of care.
--- NOTE | 2023-08-24 18:43 | EXP.EVENT.NO ---
patient son arrived and requesting transfer to [facility] for higher level of care.
--- NOTE | 2023-08-24 19:55 | PC.NURSE ---
Juan Lorenzana APRN notified of pt night med needs and to verify rosen cath order. new medication orders received and orders to continue with rosen insertion.
--- NOTE | 2023-08-24 20:15 | PC.NURSE ---
Called for bed updated ([phone]) and spoke to Thalia who stated bed is dc dependent and will most likely be in the AM. Patient see's urology there already; however, is accepted under Hospitalist service, so whoever is on in the AM will be accepting. Thalia states I am unable to connect you with the physician. Only physician to physician communication is available.
--- NOTE | 2023-08-24 20:20 | PC.NURSE ---
Called Salomón GONZALEZ in regard to primary RN concerns for continued hematuria and order for rosen to be placed per daytime Attending. It was decided that a CT Abd/Pelv wo would be done prior to placing rosen cath. After CT complete a 3-way Rosen will be placed to initiate CBI
--- NOTE | 2023-08-24 20:20 | CT_ITS ---
PROCEDURE INFORMATION: Exam: CT Abdomen And Pelvis Without Contrast Exam date and time: 08/24/2023 8:49 PM Age: 78 years old Clinical indication: Other: Gross hematuria TECHNIQUE: Imaging protocol: Computed tomography of the abdomen and pelvis without contrast. Radiation optimization: All CT scans at this facility use at least one of these dose optimization techniques: automated exposure control; mA and/or kV adjustment per patient size (includes targeted exams where dose is matched to clinical indication); or iterative reconstruction. COMPARISON: US ARTERIAL LOWER EXT REST 02/04/2021 10:27 FINDINGS: Lungs: Mild scarring and atelectasis in the lower lungs. Heart: Mitral valve calcifications. Coronary arteries: Coronary artery calcifications. Liver: Normal. No mass. Gallbladder and biliary ducts: Cholelithiasis. Pancreas: [id number] pancreatic atrophy. Spleen: Normal. No splenomegaly. Adrenal glands: Normal. No mass. Kidneys and ureters: Normal. No hydronephrosis. Stomach and bowel: Mild nonspecific bowel wall thickening of portions of distal small bowel. Gqii-[id number] small bowel feces suggesting slow motility. Appendix: Unremarkable appendix. Intraperitoneal space: Unremarkable. No free air. No significant fluid collection. Vasculature: The arteries demonstrate severe atherosclerotic disease. Lymph nodes: Unremarkable. No enlarged lymph nodes. Urinary bladder: There is a 7.3 cm filling defect in the urinary bladder. Edema around the urinary bladder is noted. Reproductive: Unremarkable as visualized. Bones/joints: Unremarkable. No acute fracture. Soft tissues: Soft tissue swelling overlying the right inguinal region. Tiny fat containing umbilical hernia. Other findings: Stigmata of old granulomatous disease. IMPRESSION: 1. There is a 7.3 cm filling defect in the urinary bladder. Hematoma would be most likely. Malignancy is less likely, but cannot be entirely excluded. 2. Cholelithiasis. 3. Edema around the urinary bladder is noted. Infection versus inflammation would be most likely. 4. Soft tissue swelling overlying the right inguinal region. Please exclude infection. 5. Mild nonspecific bowel wall thickening of portions of distal small bowel. Please exclude enteritis.
[2023-08-24] MEDS: LIDOCAINE 2% UROJET 10ML TP (21:26)
[2023-08-24] MEDS: SODIUM CHLORIDE IRRIG SOLUTION 6,000 ML 1000 ML IR ×2 (21:27→23:08)
[2023-08-24] MEDS: humaLOG 100 UNITS/ML 10ML VIAL (SSI) SQ (21:27)
[2023-08-24 21:40] LABS: POC Glucose,Bedside 356 (70-110)
[2023-08-24] MEDS: INSULIN DETEMIR 100 UNIT/ML 3ML FLEXPEN 65 UNIT SQ (21:45)
[2023-08-24] MEDS: MORPHINE 15MG EXTENDED RELEASE TAB PO (21:46)
[2023-08-24] MEDS: ISOSORBIDE MONO 30MG TAB.ER.24H 30 MG PO (21:50)
[2023-08-24] MEDS: AMLODIPINE 5MG TABLET 5 MG PO (21:50)
[2023-08-24] MEDS: PATIENT'S OWN HOME MEDICATION (Pregabalin 150 mg capsule) 300 EACH PO (22:02)
[2023-08-24 22:11] LABS: Microscopic, Urine URINE MICROSCOPIC (MICROSCOPIC)
[2023-08-24 22:22] LABS: Appearance,Urine CLEAR (Clear); Bilirubin,Urine Negative (Negative); Blood, Urine 3+ (Negative); Color,Urine YELLOW (Yellow); Glucose,Urine (UA) 2+ (Negative); Ketones,Urine Negative (Negative); Leukocyte Esterase,Urine Negative (Negative); Nitrate,Urine POSITIVE (Negative); PH,Urine 7.5 (5.0-8.5); Protein,Urine 3+ (Negative); Specific Gravity, Urine 1.025 (1.005-1.030); Urobilinogen,Urine 0.2 EU/dl (0.2)
[2023-08-24 22:24] LABS: Hemoglobin 15.4 g/dL (14.1-18.0)
[2023-08-24 22:25] LABS: Bacteria,Urine Trace /lpf; RBC,Urine TNTC #/hpf (0-3); Red Blood Cell Casts,Urine Occasional #/lpf (0); Squamous Epithelial Cell,Urine Occasional #/hpf (0-5); WBC,Urine Occasional #/hpf (0-3)
--- NOTE | 2023-08-24 22:25 | PC.NURSE ---
Salomón GONZALEZ notified that patient is tolerating CBI; however, is still having gross hematuria. Suggesting intravesicular TXA. No new orders
[2023-08-24] MEDS: TRANEXAMIC ACID 1,000 MG/10 ML VIAL 500 MG TP (22:48)
[2023-08-24] MEDS: CEFTRIAXONE 1 GM 1 GM in 0.9 % SODIUM CHLORIDE 50 ML IV (23:12)
[2023-08-25] VITALS (8 sets, daily range): BP systolic 96–123; BP diastolic 54–77; PULSE 60–78; RESP 16–19; TEMP 36.4–37; O2SAT 92–95; BMI 28.4
--- NOTE | 2023-08-25 00:51 | PC.NURSE ---
Addendum entered by Karin Field RN 08/25/23 01:01: Pt is tolerating irrigation well at this time, pt urine is a pale pink with small clots present and continues to flow freely. Pt has had a total of 11,000 in and 11,700 out since CBI was implemented. Original Note: Pt is tolerating irrigtion well at this time, pt urine is a pale pink and is flowing freely. Pt has had a total of 11,000 in and 11,700 out since CBI was implemented.
[2023-08-25] MEDS: SODIUM CHLORIDE IRRIG SOLUTION 6,000 ML 1000 ML IR ×2 (02:03→06:28)
--- NOTE | 2023-08-25 04:04 | PC.NURSE ---
Pt is alert and oriented x4 and currently tolerating RA well. Pt has c/o pain this shift and has stated that he is hurting everywhere and screams and moans when staff provides any level of care, pt is anxious rude with staff at times . Pt had multiple incontinent episodes of bloody tinged urine prior to CBI insertion at 2130. Pt urine remains pink to red tinged in color and continues to flow freely with small clots present. Pt did receive pain medication and slept well for some time. pt reports to feeling better at this time and has no complaints.
[2023-08-25 06:41] LABS: Basophils % 0.6 % (0.1-2.0); Chloride 103 mmol/L (98-107); Eosinophils # 0.1 K/mm3 (0.0-0.4); Eosinophils % 1.4 % (0.1-12.0); Hematocrit 43.4 % (42.0-52.0); Hemoglobin 14.3 g/dL (14.1-18.0); Lymphocytes # 2.2 K/mm3 (0.7-4.5); Lymphocytes % 29.9 % (10-50); Mean Corpuscular HGB Conc 32.9 g/dL (31.8-35.4); Mean Corpuscular Hemoglobin 30.9 pg (27.0-31.2); Mean Platelet Volume 8.5 fl (7.4-10.4); Monocytes # 0.6 K/mm3 (0.1-1.0); Monocytes % 7.7 % (1.7-9.3); Neutrophils # 4.4 K/mm3 (1.8-7.8); Neutrophils % 60.4 % (37.0-80.0); Platelet Count 202 K/mm3 (142-424); Potassium 4.5 mmoL/L (3.5-5.1); Red Blood Count 4.62 M/mm3 (4.60-6.20); Red Cell Distribution Width 14.6 % (11.5-17.5); Sodium 135 mmol/L (136-145); White Blood Count 7.2 K/mm3 (4.8-10.8)
[2023-08-25 06:44] LABS: Anion Gap 7.5 mEq/L (5-15); Blood Urea Nitrogen 13 mg/dl (9-20); Carbon Dioxide 29 mmol/L (22.0-30.0); Creatinine Clearance Estimated 81 mL/min (50-200); Estimated Glomerular Filt Rate 130 ml/min (>60); GFR (African American) 157 ML/MIN (>60); Glucose 131 mg/dl (74-100)
--- NOTE | 2023-08-25 06:53 | PC.NURSE ---
Pt is tolerating CBI well at this time. Pt urine remains pink to red in color and is flowing freely. [place] [address] [place] 53228 out this shift.
[2023-08-25 07:05] LABS: POC Glucose,Bedside 143 (70-110)
--- NOTE | 2023-08-25 08:14 | HMH.PHAINT1 ---
Pharmacy Intervention Comments: MEDICATION RECONCILIATION COMPLETED ON PATIENT USING EXTERNAL FILL HISTORY FROM PHARMACY AND LIST FROM PCP OFFICE. -[facility], [facility]
[2023-08-25 08:51] LABS: Alanine Aminotransferase 16 U/L (12-78); Albumin Level 3.1 g/dl (3.5-5.0); Alkaline Phosphatase 72 U/L (38-126); Aspartate Amino Transferase 20 U/L (17-59); Bilirubin,Indirect 0.5 mg/dL (0.0-0.9); Bilirubin,Total 0.5 mg/dl (0.2-1.3); Bilirubin,Unconjugated 0.6 mg/dL (0.0-1.1); Chol/HDL Ratio 2.3 (1-3.5); Cholesterol 77 mg/dl (140-200); HDL Cholesterol 34 mg/dl (40-60); Triglycerides 74 mg/dl (30-150); VLDL Cholesterol 15 mg/dL (0-40)
[2023-08-25 09:03] LABS: Direct LDL Cholesterol 40.97 mg/dL (100-129)
[2023-08-25] MEDS: MORPHINE 15MG EXTENDED RELEASE TAB 45 MG PO (09:05)
[2023-08-25] MEDS: LISINOPRIL 10MG TABLET 10 MG PO (09:05)
[2023-08-25] MEDS: ISOSORBIDE MONO 30MG TAB.ER.24H 30 MG PO (09:05)
[2023-08-25] MEDS: METOPROLOL TARTRATE 50MG TABLET 50 MG PO (09:05)
[2023-08-25] MEDS: AMLODIPINE 5MG TABLET 5 MG PO (09:05)
[2023-08-25] MEDS: PREGABALIN 100MG CAPSULE 300 MG PO (09:06)
[2023-08-25] MEDS: ASPIRIN 81MG CHEWABLE TABLET 81 MG PO (09:08)
[2023-08-25 09:09] LABS: Hematocrit 42.8 % (42.0-52.0); Hemoglobin 14.1 g/dL (14.1-18.0)
[2023-08-25 10:26] LABS: POC Glucose,Bedside 117 (70-110)
--- NOTE | 2023-08-25 10:27 | P.CONCA_ITS ---
History of Present Illness History of Present Illness Consult date: 08/25/23 Requesting physician: Erin Dela Cruz Consult reason: known to you Chief complaint: blood in urine History of present illness: This is a 78-year-old white gentleman who came into the hospital for outpatient bilateral iliofemoral runoff and had stenting to his left common iliac artery. He had persistent disease to the right which will need to be intervened on at a later date. The patient noticed hematuria following the procedure. He states he had never had hematuria before coming into the hospital. The patient was then referred for admission. He does have a past medical history of coronary artery disease, hypertension, hyperlipidemia, diabetes and a history of bladder cancer following with urology Dr. Murray at [facility] in [place]. The patient states that he has no chest pain or pressure this morning. He denies any leg pain or claudication. He denies any fever, chills, nausea, vomiting, diarrhea, PND or orthopnea. He is tearful this morning because of pain with urination and pain at the [place] catheter site. He does have jaems bright red blood noted in his urine. [facility] Disclaimer: The information contained in this section may have been updated after the patient was seen, as this information can be updated by other users. Medical History (Updated 08/25/23 @ 10:32 by Leola Valenzuela APRN) Anxiety Bladder cancer Diabetes mellitus Dyslipidemia Essential hypertension Peripheral arterial disease Wound of right foot Encounter for pre-operative cardiovascular clearance Abnormal EKG Abnormal cardiovascular stress test Edema Coronary artery disease Surgical History (Updated 08/25/23 @ 10:32 by Leola Valenzuela APRN) Presence of stent in coronary artery Hx of heart artery stent History of amputation of toe Family History Other Cancer Coronary artery disease Diabetes Social History Smoking Status: Current every day smoker tobacco type: cigarettes packs per day: 2 alcohol intake: never substance use type: denies use current occupational status: retired Travel in the last 8 weeks: None household members: children Review of Systems Review of Systems Review of systems:: pertinent systems reviewed and negative unless documented below Constitutional Constitutional: Reports system reviewed and no additional complaints, except as documented, Reports fatigue and Reports lethargy Eyes Eyes: Reports system reviewed and no additional complaints, except as documented ENT Ears, Nose, Mouth, and Throat: Reports system reviewed and no additional complaints, except as documented *Cardiovascular Cardiovascular: Reports system reviewed and no additional complaints, except as documented *Respiratory Respiratory: Reports system reviewed and no additional complaints, except as documented *Gastrointestinal Gastrointestinal: Reports system reviewed and no additional complaints, except as documented *Genitourinary Genitourinary: Reports system reviewed and no additional complaints, except as documented, Reports dysuria and Reports hematuria *Musculoskeletal Musculoskeletal: Reports system reviewed and no additional complaints, except as documented Integumentary/Breasts Skin/Breast: Reports system reviewed and no additional complaints, except as documented *Neurologic Neurologic: Reports system reviewed and no additional complaints, except as documented Psychiatric Psychiatric: Reports system reviewed and no additional complaints, except as documented Endocrine Endocrine: Reports system reviewed and no additional complaints, except as documented and Reports fatigue Hematologic/Lymphatic Hematologic/Lymphatic: Reports system reviewed and no additional complaints, except as documented Allergic/Immunologic Allergic/Immunologic: Reports system reviewed and no additional complaints, except as documented Exam Data for Last 24 hours Vital signs and Labs for Last 24 Hours: Temp Pulse Resp BP Pulse Ox O2 Del Method 97.9 F 70 16 121/72 95 Room Air 08/25/23 08:00 08/25/23 08:25 08/25/23 08:00 08/25/23 08:00 08/25/23 08:00 08/25/23 10:21 Laboratory Results - last 24 hr 08/24/23 11:45: Activated Clotting Time 338 H* 08/24/23 17:24: POC Glucose 257 H 08/24/23 17:25: WBC 9.3 D, RBC 5.15, Hgb 15.9, Hct 49.8, MCV 96.7 H, MCH 30.9, MCHC 32.0, RDW 14.7, Plt Count 211, MPV 8.9, Neut % (Auto) 76.9, Lymph % (Auto) 15.8, [place] % (Auto) 4.9, Eos % (Auto) 1.3, Baso % (Auto) 1.1, Neut # (Auto) 7.1, Lymph # (Auto) 1.5, [place] # (Auto) 0.5, Eos # (Auto) 0.1, Baso # (Auto) 0.1 08/24/23 20:35: POC Glucose 356 H* 08/24/23 21:19: Urine Color Yellow, Urine Appearance Clear, Urine pH 7.5, Ur Specific [place] 1.025, Urine Protein 3+, Urine Glucose (UA) 2+, Urine Ketones Negative, Urine Blood 3+, Urine Nitrate Positive, Urine Bilirubin Negative, Urine Urobilinogen 0.2, Ur Leukocyte Esterase Negative, Urine RBC Tntc, Urine WBC Occasional, Ur Squamous Epith Cells Occasional, Urine Bacteria Trace, RBC Casts Occasional 08/24/23 21:30: Hgb 15.4, Hct 47.0 08/25/23 05:25: POC Glucose 143 H 08/25/23 06:01: WBC 7.2, RBC 4.62, Hgb 14.3, Hct 43.4, MCV 94.0, MCH 30.9, MCHC 32.9, RDW 14.6, Plt Count 202, MPV 8.5, Neut % (Auto) 60.4, Lymph % (Auto) 29.9, [place] % (Auto) 7.7, Eos % (Auto) 1.4, Baso % (Auto) 0.6, Neut # (Auto) 4.4, Lymph # (Auto) 2.2, [place] # (Auto) 0.6, Eos # (Auto) 0.1, Baso # (Auto) 0.0, Sodium 135 L, Potassium 4.5, Chloride 103, Carbon Dioxide 29, Anion Gap 7.5, BUN 13, Creatinine 0.60 L, Estimated Creat Clear 81, Estimated GFR 130, Est GFR ( Amer) 157, Glucose 131 H D, Calcium 9.0, Total Bilirubin 0.5, Direct Bilirubin 0.0, Conjugated Bilirubin 0.0, Indirect Bilirubin 0.5, Unconjugated Bilirubin 0.6, AST 20, ALT 16, Alkaline Phosphatase 72, Total Protein 6.0 L, Albumin 3.1 L , Triglycerides 74, Cholesterol 77 L, LDL Cholesterol Direct 40.97 L, VLDL Cholesterol 15, HDL Cholesterol 34 L, Cholesterol/HDL Ratio 2.3 08/25/23 08:57: Hgb 14.1, Hct 42.8 08/25/23 10:20: POC Glucose 117 H I & O for Last 24 hours: Intake & Output 08/22/23 08/23/23 08/24/23 06/27/24 23:59 23:59 23:59 23:59 Intake Total 9250 / 76615 9750 / 9750 Output Total 99696 / 11816 13024 / 28832 Balance -1950 / -1750 -4200 / -4200 Weight 210 lb 209 lb 15.986 oz Constitutional Constitutional: no acute distress and average body habitus *Routine HEENT Exam Head: Present normocephalic and atraumatic ENT: Present mucous membranes moist *Routine Neck Exam Neck: Present supple, full ROM and normal carotid upstroke; Absent JVD, carotid bruit or lymphadenopathy *Routine Respiratory Exam Respiratory: Present CTA bilaterally, normal respiratory effort, able to speak in complete sentences and symmetric chest movement *Routine Cardiovascular Exam Cardiovascular: Present RRR, Normal S1 and Normal S2; Absent murmur or gallop *Routine Abdominal Exam Abdominal: Present soft and normoactive bowel sounds; Absent tenderness, distended or organomegaly *Routine Extremities Exam Extremities: Present full ROM, pulses intact and normal capillary refill; Absent cyanosis, clubbing or edema *Routine Skin Exam Skin: Present intact and warm; Absent erythema *Routine Neurological Exam Neurological: Present alert, oriented X3 and CN II-XII intact; Absent sensory deficit or motor deficit Routine Psychiatric Exam Psychiatric: Present normal affect Meds Home Medications and Allergies Home Medications Medication Instructions Recorded Confirmed Type aspirin 81 mg tablet,delayed 81 mg PO DAILY 05/22/20 08/25/23 History release (Adult Aspirin Regimen) pen needle, diabetic 31 gauge x #100 ea 01/14/22 08/24/23 Rx 3/16 (Unifine Pentips) blood-glucose meter,continuous #1 ea 01/27/23 08/24/23 Rx (Dexcom G7 [employer]) blood-glucose sensor (Dexcom G7 #3 ea 01/31/23 08/24/23 Rx Sensor device) insulin lispro 200 unit/mL (3 mL) See Rx Instructions .Route 03/30/23 08/25/23 Rx subcutaneous pen (Humalog KwikPen .COMPLEX #6 mL U-200 Insulin) insulin detemir U-100 100 unit/mL 65 unit (0.65 mL) SQ HS #15 mL 04/04/23 08/25/23 Rx (3 mL) subcutaneous pen (Levemir FlexPen) isosorbide mononitrate 30 mg 30 mg PO DAILY Chest pain #90 tabs 05/12/23 08/25/23 Rx tablet,extended release 24 hr pregabalin 150 mg capsule 300 mg (2 x 150 mg) PO BID nerve 06/29/23 08/25/23 Rx pain #120 caps amlodipine 5 mg tablet 5 mg PO DAILY High blood pressure 08/05/23 08/25/23 Rx #90 tabs clopidogrel 75 mg tablet (Plavix) 75 mg PO DAILY #30 tabs 08/24/23 Rx atorvastatin 40 mg tablet 40 mg PO HS 08/25/23 08/25/23 History cilostazol 50 mg tablet 50 mg PO BID 08/25/23 08/25/23 History lisinopril 10 mg tablet 10 mg PO DAILY 08/25/23 08/25/23 History metformin 500 mg tablet 500 mg PO TID 08/25/23 08/25/23 History metoprolol tartrate 50 mg tablet 50 mg PO BID 08/25/23 08/25/23 History morphine 15 mg tablet,extended 45 mg PO BID 08/25/23 08/25/23 History release oxycodone 5 mg tablet 5 mg PO Q4HP PRN Breakthrough 08/25/23 08/25/23 History Pain, Severe New Prescriptions to Start Prescriptions: clopidogrel [Plavix] Adam Rainey Allergies Allergy/AdvReac Type Severity Reaction Status Date / Time No Known Allergies Allergy Verified 08/09/23 14:37 Assessment and Plan *Assessment and plan (1) Hematuria: Status: Acute Qualifiers: Hematuria type: gross Qualified Code(s): R31.0 - Gross hematuria Category: Medical Code(s): R31.9 - Hematuria, unspecified (2) Peripheral arterial disease: Status: Acute Category: Medical Code(s): I73.9 - Peripheral vascular disease, unspecified (3) Coronary artery disease: Status: Chronic Qualifiers: Associated angina: without angina Coronary Disease-Associated Ar aba/Lesion type: [place] artery [place] vs. transplanted heart: [place] heart Qualified Code(s): I25.10 - Atherosclerotic heart disease of [place] coronary artery without angina pectoris Category: Medical Code(s): I25.10 - Atherosclerotic heart disease of [place] coronary artery without angina pectoris (4) Essential hypertension: Status: Acute Category: Medical Code(s): I10 - Essential (primary) hypertension (5) Dyslipidemia: Status: Acute Category: Medical Code(s): E78.5 - Hyperlipidemia, unspecified (6) Presence of stent in coronary artery: Status: Acute Category: Surgical Code(s): Z95.5 - Presence of coronary angioplasty implant and graft (7) Diabetes mellitus: Status: Acute Qualifiers: Diabetes mellitus complication status: without complication Diabetes mellitus roasterman insulin use: without mcfp use Diabetes mellitus type: type 2 Qualified Code(s): E11.9 - Type 2 diabetes mellitus without complications Category: Medical Code(s): E11.9 - Type 2 diabetes mellitus without complications (8) Bladder cancer: Status: Acute Qualifiers: Bladder location: unspecified site Qualified Code(s): C67.9 - Malignant neoplasm of bladder, unspecified Category: Medical Code(s): C67.9 - Malignant neoplasm of bladder, unspecified (9) Anxiety: Status: Acute Category: Medical Code(s): F41.9 - Anxiety disorder, unspecified Plan Plan: 1. This is a 78-year-old patient who was admitted to the hospital following his bilateral runoff with stenting to the left common iliac artery due to james hematuria. The patient did have a stent placed to the left common iliac artery yesterday. He has persistent disease to the right SFA and popliteal which will need to be addressed at a later date once he has recovered from this procedure and the hematuria. 2. Stop Plavix and stop Pletal due to his james hematuria per Dr. Rainey. The left common iliac artery is a very large vessel and he has a bare-metal stent. The benefit of the Plavix and Pletal at this time are much lower than his risk of worsening hematuria. There is concern for clot retention given his significant hematuria at this time. 3. Continue aspirin 81 mg daily. 4. The patient does have a history of bladder cancer and is currently seeing Dr. Murray at [facility] in [place]. He is supposed to be having a repeat procedure to evaluate his bladder cancer next week. But given his james hematuria which has not been an issue in the past and is most likely exacerbated by the dual antiplatelet therapy, the patient will be transferred to [facility] to have further evaluation for his hematuria and a bladder cancer. Currently awaiting a bed. 5. The patient does have history of coronary artery disease. He denies any chest pain or pressure at this time. No plans for invasive left cardiac catheterization at this time. Continue aspirin and isosorbide. 6. His blood pressure is well-controlled. Continue Norvasc, lisinopril, and Lopressor. 7. His LDL goal is less than 55. His LDL is 40. He is on a statin. 8. The patient is diabetic. He will need aggressive control of his diabetes. Continue metformin and insulin. 9. Further recommendations will be made pending the patient's response to treatment. Thank you for the opportunity to help participate in the care of this patient. All recommendations and orders are per Dr. Davis.
--- NOTE | 2023-08-25 10:59 | PC.NURSE ---
pt has refused twice to be placed on bedpan when pt complains of needing to have a BM.
[2023-08-25] MEDS: OXYCODONE 5MG IMMEDIATE RELEASE TABLET 5 MG PO (14:08)
--- NOTE | 2023-08-25 15:08 | PC.NURSE ---
Report called to nurse Jaki walsh at [facility].
--- NOTE | 2023-08-25 16:12 | EXP.DC.SUM ---
General Admission date:: 08/24/23 Discharge date: 08/25/23 HPI HPI HPI: Patient is a 78-year-old male with past medical history of diabetes mellitus hypertension, CAD hyperlipidemia who presented to this hospital from [facility] for hematuria. Patient did receive procedure of stenting for peripheral artery disease of left common iliac artery. Patient noticed hematuria after he played urination. Patient mentions he has never noticed hematuria in the past, he denies dysuria, he mentions blood is bright red and fresh. Patient did receive heparin during the procedure and was given an aspirin and Plavix. Hospital Course Hospital Course Hospital Course: Patient is a 78-year-old male with past medical history of diabetes mellitus hypertension, CAD hyperlipidemia who presented to this hospital from [facility] for hematuria. Patient did receive procedure of stenting for peripheral artery disease of left common iliac artery. Patient noticed hematuria after he played urination. Patient mentions he has never noticed hematuria in the past, he denies dysuria, he mentions blood is bright red and fresh. Patient did receive heparin during the procedure and was given an aspirin and Plavix. Assessment and plan Hematuria History of bladder cancer PAD s/p stenting consult cardiology patient was transferred to [facility] where patient gets his urologist services, patient was counseled to stop plavix if continues to have james hematuria, continue ASA. patient seemed stable for transfer to next facility. Exam Data for Last 24 hours Vital signs and Labs for Last 24 Hours: Temp Pulse Resp BP Pulse Ox O2 Del Method 97.5 F L 66 16 97/63 L 93 L Room Air 08/25/23 13:00 08/25/23 13:00 08/25/23 13:00 08/25/23 13:00 08/25/23 13:00 08/25/23 14:43 Laboratory Results - last 24 hr 08/24/23 17:24: POC Glucose 257 H 08/24/23 17:25: WBC 9.3 D, RBC 5.15, Hgb 15.9, Hct 49.8, MCV 96.7 H, MCH 30.9, MCHC 32.0, RDW 14.7, Plt Count 211, MPV 8.9, Neut % (Auto) 76.9, Lymph % (Auto) 15.8, [place] % (Auto) 4.9, Eos % (Auto) 1.3, Baso % (Auto) 1.1, Neut # (Auto) 7.1, Lymph # (Auto) 1.5, [place] # (Auto) 0.5, Eos # (Auto) 0.1, Baso # (Auto) 0.1 08/24/23 20:35: POC Glucose 356 H* 08/24/23 21:19: Urine Color Yellow, Urine Appearance Clear, Urine pH 7.5, Ur Specific [place] 1.025, Urine Protein 3+, Urine Glucose (UA) 2+, Urine Ketones Negative, Urine Blood 3+, Urine Nitrate Positive, Urine Bilirubin Negative, Urine Urobilinogen 0.2, Ur Leukocyte Esterase Negative, Urine RBC Tntc, Urine WBC Occasional, Ur Squamous Epith Cells Occasional, Urine Bacteria Trace, RBC Casts Occasional 08/24/23 21:30: Hgb 15.4, Hct 47.0 08/25/23 05:25: POC Glucose 143 H 08/25/23 06:01: WBC 7.2, RBC 4.62, Hgb 14.3, Hct 43.4, MCV 94.0, MCH 30.9, MCHC 32.9, RDW 14.6, Plt Count 202, MPV 8.5, Neut % (Auto) 60.4, Lymph % (Auto) 29.9, [place] % (Auto) 7.7, Eos % (Auto) 1.4, Baso % (Auto) 0.6, Neut # (Auto) 4.4, Lymph # (Auto) 2.2, [place] # (Auto) 0.6, Eos # (Auto) 0.1, Baso # (Auto) 0.0, Sodium 135 L, Potassium 4.5, Chloride 103, Carbon Dioxide 29, Anion Gap 7.5, BUN 13, Creatinine 0.60 L, Estimated Creat Clear 81, Estimated GFR 130, Est GFR ( Amer) 157, Glucose 131 H D, Calcium 9.0, Total Bilirubin 0.5, Direct Bilirubin 0.0, Conjugated Bilirubin 0.0, Indirect Bilirubin 0.5, Unconjugated Bilirubin 0.6, AST 20, ALT 16, Alkaline Phosphatase 72, Total Protein 6.0 L, Albumin 3.1 L, Triglycerides 74, Cholesterol 77 L, LDL Cholesterol Direct 40.97 L, VLDL Cholesterol 15, HDL Cholesterol 34 L, Cholesterol/HDL Ratio 2.3 08/25/23 08:57: Hgb 14.1, Hct 42.8 08/25/23 10:20: POC Glucose 117 H I & O for Last 24 hours: Intake & Output 08/22/23 08/23/23 08/24/23 08/25/23 23:59 23:59 23:59 23:59 Intake Total 9250 / 71092 9750 / 9750 Output Total 23728 / 17787 79614 / 72255 Balance -1950 / -1750 -2200 / -2200 Weight 95.254 kg 95.254 kg Constitutional Constitutional: no acute distress *Routine HEENT Exam Head: Present normocephalic Eye: Present EOMI and PERRL ENT: Present mucous membranes moist *Routine Neck Exam Neck: Present supple; Absent lymphadenopathy *Routine Respiratory Exam Respiratory: Present CTA bilaterally *Routine Cardiovascular Exam Cardiovascular: Present RRR *Routine Abdominal Exam Abdominal: Present soft and normoactive bowel sounds; Absent tenderness *Routine Extremities Exam Extremities: Absent cyanosis, clubbing or edema *Routine Skin Exam Skin: Present warm; Absent rash *Routine Neurological Exam Neurological: Present alert and oriented X3 Results Data Completed and Pending Labs on day of discharge: Labs from last 24 hours 08/25/23 08/25/23 08/25/23 10:20 08:57 06:01 WBC 7.2 RBC 4.62 Hgb 14.1 14.3 Hct 42.8 43.4 MCV 94.0 MCH 30.9 MCHC 32.9 RDW 14.6 Plt Count 202 MPV 8.5 Neut % (Auto) 60.4 Lymph % (Auto) 29.9 [place] % (Auto) 7.7 Eos % (Auto) 1.4 Baso % (Auto) 0.6 Neut # (Auto) 4.4 Lymph # (Auto) 2.2 [place] # (Auto) 0.6 Eos # (Auto) 0.1 Baso # (Auto) 0.0 Sodium 135 L Potassium 4.5 Chloride 103 Carbon Dioxide 29 Anion Gap 7.5 BUN 13 Creatinine 0.60 L Estimated Creat Clear 81 Estimated GFR 130 Est GFR ( Amer) 157 Glucose 131 H D POC Glucose 117 H Calcium 9.0 Total Bilirubin 0.5 Direct Bilirubin 0.0 Conjugated Bilirubin 0.0 Indirect Bilirubin 0.5 Unconjugated Bilirubin 0.6 AST 20 ALT 16 Alkaline Phosphatase 72 Total Protein 6.0 L Albumin 3.1 L Triglycerides 74 Cholesterol 77 L LDL Cholesterol Direct 40.97 L VLDL Cholesterol 15 HDL Cholesterol 34 L Cholesterol/HDL Ratio 2.3 Urine Color Urine Appearance Urine pH Ur Specific [place] Urine Protein Urine Glucose (UA) Urine Ketones Urine Blood Urine Nitrate Urine Bilirubin Urine Urobilinogen Ur Leukocyte Esterase Urine RBC Urine WBC Ur Squamous Epith Cells Urine Bacteria RBC Casts 08/25/23 08/24/23 08/24/23 05:25 21:30 21:19 WBC RBC Hgb 15.4 Hct 47.0 MCV MCH MCHC RDW Plt Count MPV Neut % (Auto) Lymph % (Auto) [place] % (Auto) Eos % (Auto) Baso % (Auto) Neut # (Auto) Lymph # (Auto) [place] # (Auto) Eos # (Auto) Baso # (Auto) Sodium Potassium Chloride Carbon Dioxide Anion Gap BUN Creatinine Estimated Creat Clear Estimated GFR Est GFR ( Amer) Glucose POC Glucose 143 H Calcium Total Bilirubin Direct Bilirubin Conjugated Bilirubin Indirect Bilirubin Unconjugated Bilirubin AST ALT Alkaline Phosphatase Total Protein Albumin Triglycerides Cholesterol LDL Cholesterol Direct VLDL Cholesterol HDL Cholesterol Cholesterol/HDL Ratio Urine Color Yellow Urine Appearance Clear Urine pH 7.5 Ur Specific [place] 1.025 Urine Protein 3+ Urine Glucose (UA) 2+ Urine Ketones Negative Urine Blood 3+ Urine Nitrate Positive Urine Bilirubin Negative Urine Urobilinogen 0.2 Ur Leukocyte Esterase Negative Urine RBC Tntc Urine WBC Occasional Ur Squamous Epith Cells Occasional Urine Bacteria Trace RBC Casts Occasional 08/24/23 08/24/23 08/24/23 20:35 17:25 17:24 WBC 9.3 D RBC 5.15 Hgb 15.9 Hct 49.8 MCV 96.7 H MCH 30.9 MCHC 32.0 RDW 14.7 Plt Count 211 MPV 8.9 Neut % (Auto) 76.9 Lymph % (Auto) 15.8 [place] % (Auto) 4.9 Eos % (Auto) 1.3 Baso % (Auto) 1.1 Neut # (Auto) 7.1 Lymph # (Auto) 1.5 [place] # (Auto) 0.5 Eos # (Auto) 0.1 Baso # (Auto) 0.1 Sodium Potassium Chloride Carbon Dioxide Anion Gap BUN Creatinine Estimated Creat Clear Estimated GFR Est GFR ( Amer) Glucose POC Glucose 356 H* 257 H Calcium Total Bilirubin Direct Bilirubin Conjugated Bilirubin Indirect Bilirubin Unconjugated Bilirubin AST ALT Alkaline Phosphatase Total Protein Albumin Triglycerides Cholesterol LDL Cholesterol Direct VLDL Cholesterol HDL Cholesterol Cholesterol/HDL Ratio Urine Color Urine Appearance Urine pH Ur Specific [place] Urine Protein Urine Glucose (UA) Urine Ketones Urine Blood Urine Nitrate Urine Bilirubin Urine Urobilinogen Ur Leukocyte Esterase Urine RBC Urine WBC Ur Squamous Epith Cells Urine Bacteria RBC Casts DS: Diagnosis Discharge Diagnosis (1) Hematuria: Status: Acute Code(s): R31.9 - Hematuria, unspecified Qualifiers: Hematuria type: gross Qualified Code(s): R31.0 - Gross hematuria (2) Peripheral arterial disease: Status: Acute Code(s): I73.9 - Peripheral vascular disease, unspecified (3) Coronary artery disease: Status: Chronic Code(s): I25.10 - Atherosclerotic heart disease of [place] coronary artery without angina pectoris Qualifiers: Coronary Disease-Associated Artery/Lesion type: [place] artery [place] vs. transplanted heart: [place] heart Associated angina: without angina Qualified Code(s): I25.10 - Atherosclerotic heart disease of [place] coronary artery without angina pectoris (4) Essential hypertension: Status: Acute Code(s): I10 - Essential (primary) hypertension (5) Dyslipidemia: Status: Acute Code(s): E78.5 - Hyperlipidemia, unspecified (6) Presence of stent in coronary artery: Status: Acute Code(s): Z95.5 - Presence of coronary angioplasty implant and graft (7) Diabetes mellitus: Status: Acute Code(s): E11.9 - Type 2 diabetes mellitus without complications Qualifiers: Diabetes mellitus type: type 2 Diabetes mellitus penitentiary insulin use: without penitentiary use Diabetes mellitus complication status: without complication Qualified Code(s): E11.9 - Type 2 diabetes mellitus without complications (8) Bladder cancer: Status: Acute Code(s): C67.9 - Malignant neoplasm of bladder, unspecified Qualifiers: Bladder location: unspecified site Qualified Code(s): C67.9 - Malignant neoplasm of bladder, unspecified (9) Anxiety: Status: Acute Code(s): F41.9 - Anxiety disorder, unspecified Meds Home Medications and Allergies Home Medications Medication Instructions Recorded Confirmed Type aspirin 81 mg tablet,delayed 81 mg PO DAILY 05/22/20 08/25/23 History release (Adult Aspirin Regimen) pen needle, diabetic 31 gauge x #100 ea 01/14/22 08/24/23 Rx 05/13 (Unifine Pentips) blood-glucose meter,continuous #1 ea 01/27/23 08/24/23 Rx (Dexcom G7 Stationary Engineer) blood-glucose sensor (Dexcom G7 #3 ea 01/31/23 08/24/23 Rx Sensor device) insulin lispro 200 unit/mL (3 mL) See Rx Instructions .Route 03/30/23 08/25/23 Rx subcutaneous pen (Humalog KwikPen .COMPLEX #6 mL U-200 Insulin) insulin detemir U-100 100 unit/mL 65 unit (0.65 mL) SQ HS #15 mL 04/04/23 08/25/23 Rx (3 mL) subcutaneous pen (Levemir FlexPen) isosorbide mononitrate 30 mg 30 mg PO DAILY Chest pain #90 tabs 05/12/23 08/25/23 Rx tablet,extended release 24 hr pregabalin 150 mg capsule 300 mg (2 x 150 mg) PO BID nerve 06/29/23 08/25/23 Rx pain #120 caps amlodipine 5 mg tablet 5 mg PO DAILY High blood pressure 08/05/23 08/25/23 Rx #90 tabs clopidogrel 75 mg tablet (Plavix) 75 mg PO DAILY #30 tabs 08/24/23 Rx atorvastatin 40 mg tablet 40 mg PO HS 08/25/23 08/25/23 History cilostazol 50 mg tablet 50 mg PO BID 08/25/23 08/25/23 History lisinopril 10 mg tablet 10 mg PO DAILY 08/25/23 08/25/23 History metformin 500 mg tablet 500 mg PO TID 08/25/23 08/25/23 History metoprolol tartrate 50 mg tablet 50 mg PO BID 08/25/23 08/25/23 History morphine 15 mg tablet,extended 45 mg PO BID 08/25/23 08/25/23 History release oxycodone 5 mg tablet 5 mg PO Q4HP PRN Breakthrough 08/25/23 08/25/23 History Pain, Severe New Prescriptions to Start Prescriptions: clopidogrel [Plavix] Adam Rainey Allergies Allergy/AdvReac Type Severity Reaction Status Date / Time No Known Allergies Allergy Verified 08/09/23 14:37 Discharge Plan Disposition Patient Disposition: Xfer Short-Term Hosp Condition: Good Discharge Order Discharge Orders: Discharge Order (Routine); Ordered 08/25/23 Ordered By: Erin Dela Cruz Follow up Plan Follow up with: Adam Rainey MD [Staff Physician] - 09/05/23 11:15 am Prescriptions/Medication Reconciliation: New clopidogrel [Plavix] 75 mg Tablet 75 mg PO DAILY Qty: 30 6RF Continued aspirin [Adult Aspirin Regimen] 81 mg tablet,delayed release (DR/EC) 81 mg PO DAILY (DME) Dexcom G7 Stationary Engineer Misc See Rx Instructions .Route Qty: 1 0RF Rx Instructions: As directed Humalog KwikPen Insulin 200 unit/mL (3 mL) insulin pen See Rx Instructions .ROUTE .COMPLEX Qty: 6 12RF Rx Instructions: 20 units 1/2 hour ac tid (DME) pen needle, diabetic [Unifine Pentips] 31 gauge x 3/16 needle See Rx Instructions .Route Qty: 100 2RF Rx Instructions: As directed (DME) Dexcom G7 Sensor Device See Rx Instructions .Route Qty: 3 3RF Rx Instructions: As directed Levemir FlexPen 100 unit/mL (3 mL) insulin pen 65 unit SQ HS Qty: 15 10RF isosorbide mononitrate 30 mg tablet extended release 24 hr 30 mg PO DAILY Qty: 90 3RF pregabalin 150 mg capsule 300 mg PO BID Qty: 120 5RF amlodipine 5 mg tablet 5 mg PO DAILY Qty: 90 0RF morphine 15 mg tablet extended release 45 mg PO BID Patient Comments: three tablets every 12 hours; 3 pills twice daily Cancer FILL WHEN DUE atorvastatin 40 mg tablet 40 mg PO HS metformin 500 mg tablet 500 mg PO TID cilostazol 50 mg tablet 50 mg PO BID lisinopril 10 mg tablet 10 mg PO DAILY metoprolol tartrate 50 mg tablet 50 mg PO BID oxycodone 5 mg tablet 5 mg PO Q4HP PRN (Reason: Breakthrough Pain, Severe) Patient Comments: 5 mg orally every 4 hours As Needed for breakthrough pain; carries diagnosis of cancer FILL WHEN DUE Problem Reconciliation Problems Reviewed?: Yes Patient Discharge Instructions ACTIVITY: Ambulate as tolerated DIET: continue same diet Patient Instructions: Peripheral Artery Disease, DI for Surgical Site Infection, DI for Moderate Sedation, DI for Post-Surgical Bleeding, DI for Peripheral Vascular Stent Providers Primary Care Provider: Beck Lazar Admit Provider: Erin Dela Cruz Attending Provider: Erin Dela Cruz
[2023-08-25 16:21] LABS: POC Glucose,Bedside 120 (70-110)
--- NOTE | 2023-08-25 17:15 | PC.NURSE ---
EMS educated on CBI care.
== END 2023-08-25 17:15 | disposition short-term general hospital (02) ==
LOC: 2ND 15:58
PROVIDERS: Internal Medicine; Nurse Practitioner Family; Admitting Provider Internal Medicine; PCP Family Medicine; Visit Provider Internal Medicine
DX: I70.235 Atherosclerosis of native arteries of right leg with ulceration of other part of foot (principal); F41.9 Anxiety disorder, unspecified; C67.9 Malignant neoplasm of bladder, unspecified; I10 Essential (primary) hypertension; R31.9 Hematuria, unspecified; I25.10 Atherosclerotic heart disease of native coronary artery without angina pectoris; E78.5 Hyperlipidemia, unspecified; F17.210 Nicotine dependence, cigarettes, uncomplicated; Z95.5 Presence of coronary angioplasty implant and graft; Z79.899 Other long term (current) drug therapy; Z79.4 Long term (current) use of insulin; I70.202 Unspecified atherosclerosis of native arteries of extremities, left leg; I77.1 Stricture of artery; L97.511 Non-pressure chronic ulcer of other part of right foot limited to breakdown of skin
CPT/HCPCS: 36415; 37221; 74176; 75625; 75716; 80048; 80061; 80076; 81001; 82962; 85014; 85018; 85025; 85347; 99152; 99153; C1725; C1760; C1766; C1769; C1876; C1894; G0378; J0696; J1644; J2250; J2270; J3010; Q9966

== ENCOUNTER 2024-08-13 15:47 | Outpatient (CLI) | payer MEDICARE, SELFPAY ==
[2024-08-13 18:35] LABS: Basophils # 0.1 K/mm3 (0-0.2); Eosinophils # 0.1 Kmm3 (0.0-0.4); Eosinophils % 1.9 % (0.1-12.0); Hematocrit 45.6 % (42.0-52.0); Hemoglobin 14.2 g/dL (14.1-18.0); Immature Granulocytes # 0.02 10^3uL; Immature Granulocytes % 0.3 %; Lymphocytes # 2.5 K/mm3 (0.7-4.5); Lymphocytes % 36.9 % (10-50); Mean Corpuscular HGB Conc 31.1 g/dL (31.8-35.4); Mean Corpuscular Hemoglobin 28.5 pg (27.0-31.2); Mean Corpuscular Volume 91.4 fl (80-94); Mean Platelet Volume 11.7 fl (7.4-10.4); Monocytes # 0.5 K/mm3 (0.1-1.0); Monocytes % 8.1 % (1.7-9.3); Neutrophils # 3.5 K/mm3 (1.8-7.8); Neutrophils % 51.8 % (37.0-80.0); Nucleated Red Blood Cells # 0 10^3/uL; Nucleated Red Blood Cells % 0 %; Platelet Count 178 K/mm3 (142-424); Red Blood Count 4.99 M/mm3 (4.60-6.20); Red Cell Distribution Width 15.3 % (11.5-17.5); Red Cell Distribution Width-SD 50.7 fL; White Blood Count 6.7 K/mm3 (4.8-10.8)
[2024-08-13 19:46] LABS: Alanine Aminotransferase 22 U/L (12-78); Albumin Level 3.5 g/dl (3.5-5.0); Alkaline Phosphatase 106 U/L (38-126); Anion Gap 9.1 mEq/L (5-15); Aspartate Amino Transferase 24 U/L (17-59); Bilirubin,Direct 0.2 mg/dl (0.0-0.4); Bilirubin,Indirect 0.2 mg/dL (0.0-0.9); Bilirubin,Total 0.4 mg/dl (0.2-1.3); Bilirubin,Unconjugated 0.2 mg/dL (0.0-1.1); Blood Urea Nitrogen 19 mg/dl (9-20); Calcium 9.3 mg/dl (8.4-10.2); Carbon Dioxide 30 mmol/L (22.0-30.0); Chloride 100 mmol/L (98-107); Chol/HDL Ratio 2.4 (1-3.5); Cholesterol 81 mg/dl (140-200); Estimated Glomerular Filt Rate 93 ml/min (>60); GFR (African American) 113 ML/MIN (>60); Glucose 193 mg/dl (74-100); HDL Cholesterol 34 mg/dl (40-60); Magnesium 1.9 mg/dl (1.6-2.3); Potassium 5.1 mmoL/L (3.5-5.1); Sodium 134 mmol/L (136-145); Total Protein,Serum 6.6 g/dl (6.3-8.2); Triglycerides 96 mg/dl (30-150); VLDL Cholesterol 19 mg/dL (0-40)
[2024-08-13 20:11] LABS: Free T4 (Free Thyroxine) 1.33 ng/dl (0.78-2.19)
[2024-08-13 20:12] LABS: Direct LDL Cholesterol < 30.00 mg/dL (100-129)
[2024-08-13 20:26] LABS: Thyroid Stimulating Hormone 3.27 uIU/mL (0.465-4.68)
--- OUTSIDE RECORDS SUMMARY | 2024-08-14 10:44 | XMS_ITS | Encounter Summary ---
Author Organization [place] [address] Care Team Providers Care Ocean Freight Agent Name Role Phone Randi Olivares MD, Damián Primary Care Provider + Beck Lazar MD Primary Care Provider [phone] Encounter Details Date Type Department Care Team (Late st Contact Info) Description 08/08/2007 Orders Only [facility] [place] [address] [place] [address] Clement Arias MD Social History Tobacco Use Types Packs/Day Years Used Date Smoking Tobacco: Never Assessed Sex and Gender Information Value Date Recorded Sex Assigned at Not on file Legal Sex Male 8:50 PM EDT Gender Identity Not on file Sexual Orientation Not on file documented as of this encounter Plan of Treatment Not on file documented as of this encounter Procedures Procedure Name Priority Date/Time Associated Diagnosis Comments VASCULAR STUDY - HISTORICAL Routine 08/08/2007 12:00 AM EDT documented in this encounter Results * VASCULAR STUDY - HISTORICAL (08/08/2007 12:00 AM EDT) Anatomical Region Laterality Modality Other 08/08/2007 Narrative 03/03/2011 1:01 AM EST NOTICE: This report was electronically copied on 04/16/2011 from historical data generated by a practice prior to that practice using [facility] for Medical Records. 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 08/30/2017 12/21/2017 8:08 AM EDT R/O COVID-19 01/10/2022 01/10/2022 01/10/2022 1:05 PM EST INFLUENZA 01/10/2022 01/10/2022 01/25/2022 10:1 2 PM EST R/O COVID-19 02/24/2022 02/24/2022 02/24/2022 10:5 0 PM EST COVID-19 02/24/2022 02/24/2022 03/16/2022 10:1 2 PM EST R/O COVID-19 11/03/2022 11/03/2022 11/03/2022 3:33 PM EDT documented as of this encounter Care Teams Ocean Freight Agent Relationship Specialty Start Date End Date Damián Bryan MD [address] [place] [id number] PCP - General Family Medicine 01/07/13 12/17/22 Beck Lazar MD [address] [place], [place] [id number] PCP - General Family Medicine 12/18/22 documented as of this encounter
--- OUTSIDE RECORDS SUMMARY | 2024-08-14 10:44 | XMS_ITS | Clinical Summary ---
Author Organization [facility] Address [address] [place] [address] Care Team Providers Care Maritime Officer Name Role Phone Unavailable Primary Care Provider Unavailabl e Source Comments This information has been disclosed to you from confidential records protectedfrom disclosure by state law. You shall make no further disclosure of thisinformation without the specific, written, and informed release of theindividual to whom it pertains, or as otherwise permitted by law. A generalauthorization for the release of medical or other information is not sufficientfor the purposes of therelease of HIV test results or diagnoses. [id number] Social History Tobacco Use Types Packs/Day Years Used Date Smoking Tobacco: Never Assessed Sex and Gender Information Value Date Recorded Sex Assigned at Not on file Legal Sex Male 8:57 PM EST Gender Identity Not on file Sexual Orientation Not on file Plan of Treatment Not on file Insurance BLUE MEDICARE ADVANTAGE
--- OUTSIDE RECORDS SUMMARY | 2024-08-14 10:44 | XMS_ITS | Clinical Summary ---
Author Organization [facility] Address [facility] [place] [address] Phone Care Team Providers Care Veterinary Physiologist Name Role Phone Beck Lazar MD Primary Care Provider [phone] Allergies No known active allergies Medications metFORMIN (GLUCOPHAGE) 500 mg tablet Take 500 mg by mouth 3 times daily. 3 Active metoprolol (LOPRESSOR) 25 mg tablet Take 50 mg by mouth 2 times daily. Active nitroGLYCERIN (NITROSTAT) 0.[address] 1 Tab under the tongue every 5 minutes as needed for Chest pain for 3 doses. 50 Tab 2 3 Active aspirin 81 mg Oral Tablet, Chewable Take by mouth daily (with breakfast). Active CINNAMON BARK (CINNAMON ORAL) Take 2,000 mg by mouth daily. Active isosorbide mononitrate (IMDUR) 30 mg Oral Tablet Sustained Release 24 hr Take 30 mg by mouth every morning. Active amLODIPine (NORVASC) 5 mg Oral TabletIndicatio ns:Hypertension , unspecified type Take 1 Tab by mouth 2 times daily. 60 Tab 8 Active Lancets Misc Misc Lancet 100, meter 1, strips 100 of insurance choice 1 box 8 Active atorvastatin (LIPITOR) 40 mg Oral Tablet Take 1 Tab by mouth daily. 30 Tab 9 Active insulin glargine U-100 (LANTUS) 100 unit/mL SubQ Solution Subcutaneous (Inject under the skin) 10 Units every evening. 10 mL 3 Active diclofenac (VOLTAREN) 1 % Top Gel Apply 2 g topically 2 times daily. 3 Active Additional Information Patient taking differently:2 g TopicalPRN, Reason: Pt electing to not take the medication, Reported on 08/31/2023 tamsulosin (FLOMAX) 0.4 mg Oral Capsule Take 1 Capsule by mouth nightly. 30 Capsule 4 Active mirabegron (MYRBETRIQ) 25 mg Oral Tablet Sustained Release 24 hr Take 1 Tablet by mouth daily. 30 Tablet 4 Active cyanocobalamin 1,000 mcg Oral Tablet Take 1 Tablet by mouth daily. 90 Tablet 4 Active ferrous sulfate 325 mg (65 mg iron) Oral Tablet Take 1 Tablet by mouth daily. 90 Tablet 4 Active insulin lispro (HUMALOG U-100 INSULIN) 100 unit/mL SubQ Solution Subcutaneous (Inject under the skin) 10-12 Units 3 times daily (before meals). 3 Active LEVEMIR FLEXPEN 100 unit/mL (3 mL) SubQ Insulin Pen Subcutaneous (Inject under the skin) 50 Units every evening. Active oxyCODONE (ROXICODONE) 5 mg Oral Tablet Take 5 mg by mouth every 4 hours as needed for Chronic Pain (G89.29). 4 Active morphine (MSIR) 15 mg Oral Tablet Take 15 mg by mouth 2 times daily. Active lisinopriL (PRINIVIL;ZESTR IL) 10 mg Oral Tablet Take 10 mg by mouth daily. 4 Active cilostazoL (PLETAL) 50 mg Oral Tablet Take 50 mg by mouth 2 times daily. 4 Active pregabalin (LYRICA) 150 mg Oral Capsule Take 150 mg by mouth 2 times daily. Active acetaminophen (TYLENOL) 500 mg Oral Tablet Take 1 Tablet by mouth every 4 hours as needed for Pain. 4 Active Active Problems Problem Noted Date Diagnosed Date Gross hematuria 08/26/2023 Hematuria 08/25/2023 Malignant neoplasm of urinary bladder 08/19/2023 Bladder CA in situ 10/20/2022 Overview (10/20/2022): Added automatically from request for surgery [id number] Generalized weakness 08/11/2022 Rhabdomyolysis 08/11/2022 Necrotic toes 07/24/2018 Overview (07/25/2018): 07/25/18: Underwent on 07/24/18 Amputation left second toe with 2nd metatarsal head resection Hammer toe of left foot 07/24/2018 Diabetic polyneuropathy asso ciated with type 2 diabetes mellitus 07/24/2018 Hypoglycemia 12/21/2017 Debility 09/10/2017 Anxiety 08/29/2017 Major depressive disorder, single episode, sever e 08/29/2017 History of osteomyelitis 08/26/2017 Essential hypertension 01/07/2013 Diabetes mellitus type 2 in nonobese 01/07/2013 Former smoker 01/07/2013 CAD in [place] artery 01/07/2013 Overview (07/20/2015): Known CAD s/p stenting of RCA in December 2012, and in 2001 PAD (peripheral artery disease) Great toe amputation status, left Gangrene of toe MORIS (acute kidney injury) Resolved Problems Problem Noted Date Diagnosed Date Resolved Date Mixed type age-related cataract, left eye 05/04/2018 05/25/2018 Overview (05/04/2018): Added automatically from request for surgery [id number] Mixed type age-related cataract, right eye 05/01/2018 05/11/2018 Overview (05/01/2018): Added automatically from request for surgery [id number] Cellulitis of foot 08/26/2017 9 Chest pain 12/14/2016 07/25/2018 HLD (hyperlipidemia) 02/16/2013 017 Lung infiltrate, left lung base 01/07/2013 12/14/2016 Elbow pain, left 01/07/2013 12/14/2016 Elbow pain 12/14/2016 Anemia, chronic disease 06/29 Acute hypokalemia 07/25/2018 Immunizations Immunization Administration Dates Next Due PPD Test 09/23/2017,09/09/2017 Surgical History Surgery Date Site/Laterality Comments CORONARY ANGIOPLASTY WITH STENT PLACEMENT 02/28/2001 - 02/27/2002 stents x 3 CIRCUMCISION 02/28/2017 - 02/27/2018 TOE AMPUTATION 08/30/2017 Left INCISION AND DRAINAGE WITH AMPUTATION LEFT HALLUX ; Surgeon: Sandra Rubi DPM; Location: [facility]; Service: Podiatry IR ABDOMINAL AORTOGRAM SERIALOGRAM 08/29/2017 IR ABDOMINAL AORTOGRAM SERIALOGRAM 08/29/2017 Elvis Morgan MD [facility] IR ANGIOGRAM EXTREMITY BILATERAL 08/29/2017 IR ANGIOGRAM EXTREMITY BILATERAL 08/29/2017 Elvis Morgan MD [facility] 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/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/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 Elvis Morgan MD [facility] IR FLUOROSCOPY GUIDED CENTRAL VENOUS ACCESS DEVICE PLACEMENT 09/05/2017 IR FLUOROSCOPY GUIDED CENTRAL VENOUS ACCESS DEVICE PLACEMENT 09/05/2017 Lata Vivar PA-C [facility] IR ULTRASOUND GUIDED VASCULAR ACCESS 09/05/2017 IR ULTRASOUND GUIDED VASCULAR ACCESS 09/05/2017 Lata Vivar PA-C [facility] IR TUNNELED PICC LINE 09/08/2017 IR TUNNELED PICC LINE 09/08/2017 Marika Villa PA [facility] IR TUNNEL CATHETER REMOVAL WITHOUT IMAGING 10/12/2017 IR TUNNEL CATHETER REMOVAL WITHOUT IMAGING 10/12/2017 Lata Vivar PA-C [facility] IR DENTAL SURGERY Full dentures CATARACT REMOVAL 05/10/2018 Right RIGHT EYE CATARACT EXTRACTION WITH PHACOEMULSIFICATION AND INTRAOCULAR LENS; Surgeon: Naman Berger MD; Location: [facility]; Service: Ophthalmology Medical devices from this surgery are in the Medical Devices section. CATARACT REMOVAL 05/24/2018 Left LEFT EYE CATARACT EXTRACTION WITH PHACOEMULSIFICATION AND INTRAOCULAR LENS; Surgeon: Naman Berger MD; Location: [facility]; Service: Ophthalmology Medical devices from this surgery are in the Medical Devices section. TOE AMPUTATION 07/24/2018 Left AMPUTATION LEFT SECOND TOE; Surgeon: Grupo Kruger DPM; Location: [facility]; Service: Podiatry ILIO-FEMORAL BYPASS GRAFT 08/24/2023 Left left iliac stent placement BLADDER TUMOR EXCISION 09/02/2023 N/A CYSTOSCOPY, SMALL TRANSURETHRAL RESECTION OF BLADDER TUMOR, FULGERATION OF BLADDER; Surgeon: Naman Murray MD; Location: [facility]; Service: Urology Medical History Medical History Date Comments Diabetes mellitus (HCC) CAD (coronary artery disease) Ec ho 07/21/2015: LVEF 60-65%. Abnormal septal motion (septal bounce). Mild pulmonic regurgitation. Hypertension GXT 07/21/2015: L VEF 70%. Normal LV perfusion study. There is no pharmacologically provoked ischemia. Preserved LV systolic funtion. Preserved right ventricular function. Former smoker 01/07/2013 Arthritis Osteoarthritis Adjustment disorder with dep ressed mood 08/29/2017 Major depressive disorder, s julianne episode, severe (HCC) 08/29/2017 Toe infection 05/04/2018 left middle toe infection, on Keflex for this, instructed to call Dr Berger prior to surgery Wears glasses Full dentures Ambulates with cane for balance PERLA (dyspnea on exertion) Heart murmur Bladder problem CANCER Cancer (HCC) BLADDER Neuromuscular disorder (HCC) NATHANIEL ROPATHY Peripheral vascular disease Heartburn H/O hematuria s/p L iliac sten ting; admitted PAD (peripheral artery disease) Family History Medical History Relation Name Comments Cancer Father Coronary Art Dis Father approx Heart Disease Father Stroke Mother Cancer Sister Pancreatic Anesth Problems Neg Hx Relation Name Status Comments Father Maternal Grandfather Maternal Grandmother Mother Paternal Grandfather Paternal Grandmother Sister Social History Tobacco Use Types Packs/Day Years Used Date Smoking Tobacco: Every Day Cigarettes 1 40.5 Started: 1962; Last attempted to quit: 1989 Cigars Smokeless Tobacco: Never Tobacco Cessation:Ready to Q uit: Not Asked; Counseling Given: Not Answered Comments:Cigarettes-quit 2001 but still smokes cigars Alcohol Use Standard Drinks/Week Comments No 0 (1 standard drink = 0.6 oz pur e alcohol) [facility] Utilities Answer Date Recorded In the past 12 months has e [employer], gas, oil, or water [employer] threatened to shut off services in your home? No 08/26/2023 Overall Financial Resource Strain (CARDIA) Answe r Date Recorded How hard is it for you to pa y for the very basics like food, housing, medical care, and heating? Not hard at all 08/26/2023 PHQ-2 Answer Date Recorded PHQ-2 Total Score 0 08/26/2023 [facility] Occupat ional Health - Occupational Stress Questionnaire Answer Date Recorded Do you feel stress - tense, restless, nervous, or anxious, or unable to sleep at night because your mind is troubled all the time - these days? Not at all 08/26/2023 Exercise Vital Sign Answer Date Recorde d On average, how many days pe r week do you engage in moderate to strenuous exercise (like a brisk walk)? 0 days 08/26/2023 On average, how many minutes do you engage in exercise at this level? 0 min 08/26/2023 Hunger Vital Sign Answer Date Recorded Within the past 12 months, y ou worried that your food would run out before you got the money to buy more. Never true 08/26/19 24 Within the past 12 months, t he food you bought just didn't last and you didn't have money to get more. Never true 08/26/2023 PRAPARE - Transportation Answer Date Re corded In the past 12 months, has l ack of transportation kept you from medical appointments or from getting medications? No 07/29 In the past 12 months, has l ack of transportation kept you from meetings, work, or from getting things needed for daily living? No 08/12/2022 [facility] IP Transportation Answer D ate Recorded In the past 12 months, has l ack of reliable transportation kept you from medical appointments, meetings, work or from getting things needed for daily living? No 08/26/2023 Sex and Gender Information Value Date Recorded Sex Assigned at Not on file Legal Sex Male 8:50 PM EDT Gender Identity Not on file Sexual Orientation Not on file Obstetrics History Last Filed Vital Signs Vital Sign Reading Time Taken Comments Blood Pressure 127/52 09/02/2023 2:42 PM EDT Pulse 51 09/02/2023 2:42 PM EDT Temperature 36.1 C (97 F) 09/02/2023 1:15 PM EDT Respiratory Rate 16 09/02/2023 2:42 PM EDT Oxygen Saturation 97% 09/02/2023 2:42 PM EDT Inhaled Oxygen Concentration - - Weight 94.1 kg (207 lb 7 oz) 09/02/2023 10:08 AM EDT Height 182.9 cm (6') 08/31/2023 12:48 PM EDT Body Mass Index 28.13 08/31/2023 12:48 PM EDT Plan of Treatment Health Maintenance Due Date Last Done Comments Wellness Exam Medicare 08/23/1948 Diabetic Eye Exam 1963 Hepatitis C Screening 1963 DTaP/TDaP/Td (1 - Tdap) 08/23/1963 Pneumococcal Vaccine 50+ (1 of 2 - PCV) 08/23/1963 Low Dose Lung Cancer Screening 1994 Zoster (1 of 2) 1994 Microalbuminuria 08/26/2018 08/26/2017 Lipids 07/25/2019 07/24/2018, 11/29, 12/15/2016, Additional history exists RSV or 60+ (1 - 1-dose 75+ series) 08/23/2019 COVID-19 Vaccine ( - 2023-2 5 season) 2023 Hemoglobin A1c 02/27/2024 08/28/2023, 07/29, 05/26/2018, Additional history exists Influenza Vaccine (Season Ended) 2024 Hepatitis B Vaccine Aged Out No longe r eligible based on patient's age to complete this topic Meningococcal B Vaccine Aged Out No l onger eligible based on patient's age to complete this topic Medical Devices Implanted Type Area Production Control Specialist Device Identifier Shelf Expiration Date Model / Serial / Lot Stent Promus Element Mr Stent 2.50 X 20mmm - [id number] Implanted:Qty: 1 on 01/07/2013 by Mick Mccain MD at [facility] Explanted:at [facility] (Quantity not on file) Stent-P romus N/A: [employer]CARDIAC RHYTHM [facility] [id number] / / [id number] Stent Promus Element De Stent 3.0x 38mm - [id number] Implanted:Qty: 1 on 01/17/2013 by Mick Mccain MD at [facility] Explanted:at [facility] (Quantity not on file) Stent-P romus [employer]:CARDIAC RHYTHM MGMT [id number] / / [id number] Cardiac Stent X 1 (2001) L Iliac Stent Lens Intraocular Preloaded 23.0 Diopter - [id number] Implanted:Qty: 1 on 05/10/2018 by Naman Berger MD at [facility] Right: Eye [facility] 10/28/2020 AU00T0.23 0 / [id number] / [id number] Lens Intraocular Preloaded 22.5 Diopter - [id number] Implanted:Qty: 1 on 05/24/2018 by Naman Berger MD at [facility] Left: Eye [facility] 11/27/2020 AU00T0.22 5 / [id number] / [id number] Procedures Procedure Name Priority Date/Time Associated Diagnosis Comments HEMOGLOBIN A1C Add-On 08/28/2023 5:44 AM EDT Preop testing Type 2 diabetes mellitus with hyperglycemia, with long-term current use of insulin (HCC) LIPID PANEL REFLEX Routine 07/24/2018 6: 12 AM EDT MICROALBUMIN/CREATIN INE RATIO URINE Routine 08/26/2017 8:48 PM EDT from Last 3 Months or Most Recently Relevant to Health Maintenance Results * (ABNORMAL) HEMOGLOBIN A1C (08/28/2023 5:44 AM EDT) Hgb A1C 10.2(H) 4.2 - 5.6 % 08/31/2023 12:34 PM EDT [facility] [employer] Est. Avg Glucose 246 mg/dL 08/31/2023 12:34 PM EDT [employer] Blood VENOUS BLOOD / Unknown Venipuncture / Unknown 08/28/2023 5:44 AM EDT 08/28/2023 6:41 AM EDT Narrative [employer] - 08/31/2023 12:34 PM EDT REFERENCE RANGE: Normal: 4.0-5.6% Pre-diabetes: 5.7-6.4% Provisional diagnosis of diabetes: >6.4% Hgb F>10% and anything which shortens red cell survival, such as hemolytic anemia, or unstable hemoglobin variants such as HbSS, HbSC, or HbCC, will lower the HbA1c value associated with a given level of glycemic control. us Deidra Reddy CORRECTIONAL CAPTAIN CHEMISTRY ORDERABLES Final Result [facility] [address] , [place] [address] * (ABNORMAL) LIPID PANEL REFLEX (07/24/2018 6:12 AM EDT) Cholesterol 86 <=200 mg/dL 07/24/2018 7:16 AM EDT [facility] Comment: < 200 Desirable 200 - 239 Borderline High >= 240 High Triglyceride 155(H) <=150 mg/dL 07/24/2018 7:16 AM EDT [facility] Comment: < 150 Normal 150 - 199 Borderline High 200 - 499 High >= 500 Very High HDL 33(L) >=40 mg/dL 07/24/2018 7:16 AM EDT [facility] Comment: > 60 Optimal 40 - 60 Acceptable < 40 Low LDL Calculated 22 <=100 mg/dL 07/24/2018 7:16 AM EDT [facility] Non-HDL-C Calculated 53 <=129 mg/dL 07/24/2018 7:16 AM EDT [facility] Comment: <130 Desirable 130-159 Above Desirable 160-189 Borderline High 190-219 High >= 220 Very High Fasting Specimen? Yes None 019 7:16 AM EDT [facility] Blood VENOUS BLOOD / Unknown Venipuncture / Unknown 07/24/2018 6:12 AM EDT 07/24/2018 6:47 AM EDT us Heath Ernst DO CHEMISTRY ORDERABLES Final Resu lt Performing Organization Address [facility] de Phone Number [facility] [address] , [address] [place], [place] [id number] * (ABNORMAL) MICROALBUMIN/CREATININE RATIO URINE (08/26/2017 8:48 PM EDT) Urine Microalb 77.6 mg/L 08/26/2017 9:46 PM EDT [facility] Urine Creatinine 69.8 mg/dL 08/26/2017 9:46 PM EDT [facility] Ur Microalb/Creat 111(H) 0 - 30 mg/g 08/26/2017 9:46 PM EDT [facility] Urine STRUCTURE OF URINARY TRACT PROPER / Unknown 08/26/2017 8:48 PM EDT 08/26/2017 8:50 PM EDT K. Archie Guan MD URINE ORDERABLES Final Resul t [facility] [employer] [address] [facility] [address] [address] [facility] [address] [place] [address] from Last 3 Months or Most Recently Relevant to Health Maintenance Insurance NINA EDMONDS MR NINA EDMONDS MR NINA EDMONDS MR NINA EDMONDS MR NINA EDMONDS MR NINA EDMONDS MR Advance Directives For more information, please contact: [phone] * Full Code (Latest Code Status on File) Date Activated Date Inactivated Comments 08/25/2023 7:18 PM 08/28/2023 10:05 PM * Full Code Date Activated Date Inactivated Comments 08/11/2022 4:33 AM 08/19/2022 4:41 PM * Full Code Date Activated Date Inactivated Comments 07/23/2018 7:57 PM 07/26/2018 4:11 PM * Full Code Date Activated Date Inactivated Comments 12/21/2017 2:07 PM 12/22/2017 4:52 PM * Full Code Date Activated Date Inactivated Comments 09/09/2017 3:31 PM 10/12/2017 6:50 PM Care Teams Veterinary Physiologist Relationship Specialty Start Date End Date Beck Lazar MD [address] [place] [address] PCP - General Family Medicine 12/18/22
--- OUTSIDE RECORDS SUMMARY | 2024-08-14 10:44 | XMS_ITS | Clinical Summary ---
Author Organization [facility] Address [address] [place] [address] Care Team Providers Care Antiquer Name Role Phone Unavailable Primary Care Provider Unavailabl e Allergies No known active allergies Medications aspirin 81 MG chewable tablet Take 81 mg by mouth daily Active atorvastatin (LIPITOR) 10 MG tablet Take 10 mg by mouth daily 05/04/2018 Active dapagliflozin (FARXIGA) 5 MG tablet Take 5 mg by mouth 2 times daily Active glyBURIDE (DIABETA) 5 MG tablet Take 5 mg by mouth 2 times daily 12/22/2017 Active isosorbide mononitrate (IMDUR) 30 MG extended release tablet Take 30 mg by mouth daily Active lisinopril (PRINIVIL;ZESTRI L) 10 MG tablet Take 10 mg by mouth daily 12/16/2016 Active metFORMIN (GLUCOPHAGE) 500 MG tablet Take 500 mg by mouth 3 times daily 01/08/2013 Active metoprolol tartrate (LOPRESSOR) 25 MG tablet Take 25 mg by mouth 2 times daily 05/08/2018 Active oxyCODONE-acetam inophen (PERCOCET) 10-325 MG per tablet Take 1 tablet by mouth every 6 hours as needed. 05/19/2018 Active pentoxifylline (TRENTAL) 400 MG extended release tablet Take 400 mg by mouth 3 times daily (with meals) 04/24/2018 Active pregabalin (LYRICA) 150 MG capsule Take 100 mg by mouth 3 times daily. Active prednisoLONE acetate (PRED FORTE) 1 % ophthalmic suspension Place 1 drop into the right eye 2 times daily Active bromfenac (XIBROM) 0.09 % ophthalmic solution Place 1 drop into both eyes daily Active moxifloxacin (VIGAMOX) 0.5 % ophthalmic solution Place 1 drop into the left eye 4 times daily Active Active Problems Problem Noted Date Diagnosed Date Cellulitis of left foot 05/30/2018 Diabetic polyneuropathy asso ciated with type 2 diabetes mellitus 05/30/2018 DM2 (diabetes mellitus, type 2) 05/27/2018 CAD (coronary artery disease) 05/27/2018 Toe osteomyelitis, left 05/26/2018 Sinus bradycardia Benign essential HTN Social History Tobacco Use Types Packs/Day Years Used Date Smoking Tobacco: Former Cigarettes Q uit: 2013 Smokeless Tobacco: Never Comments:4-5 ppd prior to 19 04 Alcohol Use Standard Drinks/Week Comments Not Currently 0 (1 standard drink = 0.6 oz pur e alcohol) Sex and Gender Information Value Date Recorded Sex Assigned at Not on file Legal Sex Male 3:31 PM EDT Gender Identity Not on file Sexual Orientation Not on file Last Filed Vital Signs Vital Sign Reading Time Taken Comments Blood Pressure 114/52 05/30/2018 12:30 PM EDT Pulse 61 05/30/2018 12:30 PM EDT Temperature 36.6 C (97.9 F) 05/30/2018 8:07 AM EDT Respiratory Rate 16 05/30/2018 12:30 PM EDT Oxygen Saturation 95% 05/30/2018 8:07 AM EDT Inhaled Oxygen Concentration - - Weight 95.3 kg (210 lb) 05/26/2018 6:41 PM EDT Height 182.9 cm (6') 05/26/2018 6:41 PM EDT Body Mass Index 28.48 05/26/2018 6:41 PM EDT Plan of Treatment Not on file Medical Devices Implanted Type Area Basket Mender Device Identifier Shelf Expiration Date Model / Serial / Lot Stent:Coronary -08/26/2001 Implanted:Qty: 1 on 08/26/2001 Stent:Cor onary N/A: Heart Stent:Coronary -01/26/2013 Implanted:12/30 (Quantity not on file) Stent:Cor onary N/A: Heart Additional Health Concerns Infection Onset Date Last Indicated MRSA 05/26/2018 05/26/2018 Insurance Advance Directives * Full Code (Latest Code Status on File) Date Activated Date Inactivated Comments 05/29/2018 8:53 AM 05/30/2018 4:24 PM
== END 2024-08-13 23:59 | disposition home or self-care (01) ==
LOC: LAB.DROPOF 08-14 10:41
PROVIDERS: PCP Physician Assistant; Visit Provider Physician Assistant
DX: I10 Essential (primary) hypertension (principal); I25.10 Atherosclerotic heart disease of native coronary artery without angina pectoris
CPT/HCPCS: 80048; 80061; 80076; 83735; 84439; 84443; 85025

== ENCOUNTER 2024-10-11 07:44 | Day surgery (SDC) | payer MEDICARE, SELFPAY ==
[2024-10-11] VITALS (12 sets, daily range): BP systolic 138–173; BP diastolic 64–93; PULSE 65–82; RESP 16–18; O2SAT 82–97; BMI 30.1
--- NOTE | 2024-10-11 06:58 | IR_ITS ---
APPROVED REPORT Patient Location: Outpatient Shooter Helper: Naman Cartwright, RT (R) PROCEDURES Left femoral arterial access Left retrograde femoral angiogram Catheter placement in the right superficial femoral artery Right superficial femoral artery antegrade angiogram with unilateral runoff to the right foot Catheter placed in the right popliteal artery Right popliteal artery antegrade angiogram Intravascular lithotripsy to the right popliteal artery and right superficial femoral artery Drug-coated balloon angioplasty to the right popliteal artery and right superficial femoral artery Post drug-coated balloon angioplasty antegrade angiogram to the right superficial femoral artery and right popliteal artery INDICATION Pebbles claudication class V, Calcified and heavily atherosclerotic subtotally occluded right superficial femoral artery and right popliteal, Poorly healing lower extremity ulcers ischemically mediated Informed consent was obtained prior to the procedure. COMPLICATIONS NONE Estimated Blood Loss: LESS THAN 10 ML TECHNIQUE 1% lidocaine used to anesthetize the left femoral groin. The left femoral artery was accessed via the Seldinger technique. A 6 Qatari sheath was placed in the left femoral artery. Retrograde angiography was performed. Therapeutic heparin was administered giving a therapeutic ACT. A rim catheter was used to select the right common iliac artery and a long advantage wire was advanced under fluoroscopic guidance into the right popliteal artery. A long destination sheath was exchanged for the short 6 Qatari sheath. Antegrade angiography in the right superficial femoral artery and right popliteal artery was performed. A trailblazer catheter was advanced into the right popliteal artery and the wire was pulled back. Antegrade angiography was performed to confirm placement in the true lumen. A 300 cm Choice PT extra-support wire was placed distally. The trailblazer was removed and a 6 mm x 80 mm shockwave lithotripsy balloon was advanced and deployed at 4 елена and then 6 елена for a total of 400 pulsations throughout the right popliteal artery and right superficial femoral artery. Following this a 6 mm x 250 mm drug-coated balloon was then advanced over an 035 wire after the Choice PT extra-support wire was exchanged via the trailblazer. The balloon was deployed at 8 елена for 3 minutes. At the end of the procedure angiography was performed. Following this the apparatus was removed the groin is reprepped closure change sheath was removed and hemostasis was achieved using Angio-Seal device patient was transferred to the postop boarding in stable condition ANGIOGRAPHIC RESULTS Left common internal and external iliac artery is widely patent with stents throughout the vessels. The left common femoral artery is normal right common internal and external iliac artery is patent Right common femoral artery has atherosclerotic plaque dense calcifications with 60% stenosis Right superficial femoral and popliteal artery densely calcified severely stenosed with high-grade stenoses throughout There is poor two-vessel runoff below the knee IMPRESSION Extensive subtotally occluded calcified right superficial femoral artery and right popliteal artery Successful intravascular lithotripsy to the right superficial femoral and right popliteal artery followed by drug-coated balloon angioplasty PLAN 1. Aspirin and Plavix is reasonable 2. Risk factor modification 3. LDL less than 55 to be achieved with high intensity statin 4. Ideally patient should be on Xarelto 2.5 twice daily plus aspirin 81 mg daily Electronically signed by : Adam Rainey MD 10/11/2024 12:57:43
[2024-10-11 08:31] LABS: Hematocrit 45.4 % (42.0-52.0); Hemoglobin 14.3 g/dL (14.1-18.0); Immature Granulocytes % 0.3 %; Mean Corpuscular HGB Conc 31.5 g/dL (31.8-35.4); Mean Corpuscular Hemoglobin 28.8 pg (27.0-31.2); Mean Corpuscular Volume 91.3 fl (80-94); Nucleated Red Blood Cells % 0 %; Platelet Count 190 K/mm3 (142-424); Red Blood Count 4.97 M/mm3 (4.60-6.20); Red Cell Distribution Width-SD 52.5 fL; White Blood Count 7.5 K/mm3 (4.8-10.8)
[2024-10-11 08:36] LABS: Chloride 100 mmol/L (98-107); Potassium 4.9 mmoL/L (3.5-5.1); Sodium 139 mmol/L (136-145)
[2024-10-11 08:39] LABS: Anion Gap 14.9 mEq/L (5-15); Blood Urea Nitrogen 21 mg/dl (9-20); Calcium 8.6 mg/dl (8.4-10.2); Carbon Dioxide 29 mmol/L (22.0-30.0); Creatinine Clearance Estimated 84 mL/min (50-200); Creatinine,Serum 0.70 mg/dl (0.66-1.25); Estimated Glomerular Filt Rate 109 ml/min (>60); GFR (African American) 131 ML/MIN (>60); Glucose 65 mg/dl (74-100)
[2024-10-11] MEDS: HEPARIN 1,000 UNITS/500ML NS (CATH LAB) 3000 UNIT IV (09:45)
[2024-10-11] MEDS: NITROGLYCERIN 800MCG/8ML SYR (CATH LAB) 800 MCG IA (09:45)
[2024-10-11] MEDS: HEPARIN 1,000 UNITS/ML 10ML VIAL (CATH LAB) 5000 UNIT IV (09:45)
[2024-10-11] MEDS: MIDAZOLAM HCL 1MG/ML 5ML VIAL 1 MG IV (09:45)
[2024-10-11] MEDS: FENTANYL 100MCG/2ML VIAL 50 MCG IV (09:45)
[2024-10-11] MEDS: LIDOCAINE 1% 10ML MDV 10 ML IJ (09:45)
[2024-10-11] MEDS: 0.9 % SODIUM CHLORIDE 500 ML 25 ML IV (09:45)
[2024-10-11] MEDS: VERAPAMIL 2.5MG/ML 2ML VIAL 2.5 MG IV (09:46)
--- NOTE | 2024-10-11 12:07 | EXP.HP ---
History of Present Illness *Admission Date: 10/11/24 *Reason for visit:: S/p runoff RLE *History of present illness: Mr. Martin is a 79-year-old male who presented as an outpatient this morning for a right common femoral artery. He has a primary medical history of insulin-dependent diabetes mellitus, PAD, LHC with coronary stenting, bladder cancer, diabetic neuropathy, CAD, hypertension, hyperlipidemia, DJD/chronic pain, osteoarthritis, and mood disorder/anxiety. Patient had extensive subtotally occluded calcified right superficial femoral artery and right popliteal artery. Successful lithotripsy to the right superficial femoral and right popliteal artery followed by drug-coated balloon angioplasty. Patient had left groin access and subsequently has to remain supine for approximately [address] Rainey requested patient be admitted for further monitoring of cath site for bleeding and postop complications, hospital medicine agreeable to admit. [facility] Disclaimer: The information contained in this section may have been updated after the patient was seen, as this information can be updated by other users. Medical History Anxiety Bladder cancer Diabetes mellitus Dyslipidemia Essential hypertension Peripheral arterial disease Wound of right foot Encounter for pre-operative cardiovascular clearance Abnormal EKG Abnormal cardiovascular stress test Edema Coronary artery disease Surgical History Presence of stent in coronary artery Hx of heart artery stent History of amputation of toe Family History Other Cancer Coronary artery disease Diabetes Social History (Updated 10/11/24 @ 08:12 by Naman Mantilla RN) Smoking Status: Current every day smoker tobacco type: cigarettes packs per day: 2 alcohol intake: never substance use type: denies use current occupational status: retired Travel in the last 8 weeks?: None household members: children Have you lived/traveled outside [place] in past 30 days?: No Contact w/someone who lives/traveled outside [place] past 30 days?: No Exposure to someone with infectious disease in past 14 days?: No Do you have a fever (greater than 100.4 F or 38 C)?: No Have you tested positive for COVID-19?: No Exposed to someone with COVID-19 in past 14 days?: No Do you have a sore throat?: No Do you have a cough?: No Do you have any weakness?: No Do you have any diarrhea?: No Are you experiencing any unusual bleeding?: No Do you have any muscle aches/pain?: No Do you have any abdominal pain?: No Are you experiencing loss of taste or smell?: No Other Medical History Have you received the Flu Vaccine for this season: No Have you received the Pneumonia Vaccine: No Meds Home Medications and Allergies Home Medications ?Medication ?Instructions ?Recorded ?Confirmed ?Type aspirin 81 mg tablet,delayed 81 mg PO DAILY 05/22/20 10/11/24 History release (Adult Aspirin Regimen) pen needle, diabetic 31 gauge x #100 ea 01/14/22 10/11/24 Rx 3/16 (Unifine Pentips) insulin glargine 100 unit/mL (3 65 unit (0.65 mL) SQ HS #15 mL 12/16/23 10/11/24 Rx mL) subcutaneous pen (Lantus Solostar U-100 Insulin) cilostazol 50 mg tablet 50 mg PO BID #60 tabs 02/15/24 10/11/24 Rx isosorbide mononitrate 30 mg 30 mg PO DAILY Chest pain #90 tabs 03/26/24 10/11/24 Rx tablet,extended release 24 hr metoprolol tartrate 50 mg tablet 50 mg PO BID #180 tabs 04/16/24 10/11/24 Rx lisinopril 10 mg tablet 10 mg PO DAILY #90 tabs 04/30/24 10/11/24 Rx metformin 500 mg tablet 500 mg PO TID #90 tabs 07/11/24 10/11/24 Rx pregabalin 150 mg capsule (Lyrica) 300 mg (2 x 150 mg) PO BID #120 08/01/24 10/11/24 Rx caps morphine 15 mg tablet,extended 45 mg (3 x 15 mg) PO BID PRN pain 10/01/24 10/11/24 Rx release #90 tabs oxycodone 5 mg tablet 5 mg PO Q4H PRN pain #90 tabs 10/01/24 10/11/24 Rx amlodipine 5 mg tablet 5 mg PO DAILY 10/11/24 10/11/24 History atorvastatin 40 mg tablet 40 mg PO HS 10/11/24 10/11/24 History New Prescriptions to Start Prescriptions: Allergies Allergy/AdvReac Type Severity Reaction Status Date / Time No Known Allergies Allergy Verified 10/01/24 10:13 Exam Data for Last 24 hours Vital signs and Labs for Last 24 Hours: Pulse Resp BP Pulse Ox O2 Del Method O2 Flow Rate 77 18 147/71 H 94 L Nasal Cannula 2 10/11/24 11:35 10/11/24 11:35 10/11/24 11:35 10/11/24 11:35 10/11/24 11:35 10/11/24 11:35 Laboratory Results - last 24 hr 10/11/24 08:24: WBC 7.5, RBC 4.97, Hgb 14.3, Hct 45.4, MCV 91.3, MCH 28.8, MCHC 31.5 L, RDW 15.7, Plt Count 190, MPV 10.3, Neut % (Auto) 63.5, Lymph % (Auto) 25.5, [place] % (Auto) 8.3, Eos % (Auto) 1.6, Baso % (Auto) 0.8, Neut # (Auto) 4.8, Lymph # (Auto) 1.9, [place] # (Auto) 0.6, Eos # (Auto) 0.1, Baso # (Auto) 0.1, Sodium 139, Potassium 4.9, Chloride 100, Carbon Dioxide 29, Anion Gap 14.9, BUN 21 H, Creatinine 0.70, Estimated Creat Clear 84, Estimated GFR 109, Est GFR ( Amer) 131, Glucose 65 L, Calcium 8.6 I & O for Last 24 hours: Intake & Output 10/08/24 10/09/24 10/10/24 10/11/24 23:59 23:59 23:59 23:59 Weight 100.698 kg Assessment and Plan *Assessment and plan (1) S/P aortogram with runoff: Status: Acute Category: Surgical Code(s): Z98.890 - Other specified postprocedural states (2) Peripheral vascular disease: Status: Acute Category: Medical Code(s): I73.9 - Peripheral vascular disease, unspecified (3) Insulin dependent diabetes mellitus: Status: Acute Category: Medical (4) Essential hypertension: Status: Acute Category: Medical Code(s): I10 - Essential (primary) hypertension (5) Dyslipidemia: Status: Acute Category: Medical Code(s): E78.5 - Hyperlipidemia, unspecified (6) Chronic pain syndrome: Status: Acute Category: Medical Code(s): G89.4 - Chronic pain syndrome (7) Degenerative joint disease (DJD) of lumbar spine: Status: Acute Qualifiers: Spinal osteoarthritis complication: with radiculopathy Qualified Code(s): M47.26 - Other spondylosis with radiculopathy, lumbar region Category: Medical Code(s): M47.816 - Spondylosis without myelopathy or radiculopathy, lumbar region Plan Mr. Martin is a 79-year-old male who presented as an outpatient this morning for a right common femoral artery. He has a primary medical history of insulin-dependent diabetes mellitus, PAD, LHC with coronary stenting, bladder cancer, diabetic neuropathy, CAD, hypertension, hyperlipidemia, DJD/chronic pain, osteoarthritis, and mood disorder/anxiety. Patient had extensive subtotally occluded calcified right superficial femoral artery and right popliteal artery. Successful lithotripsy to the right superficial femoral and right popliteal artery followed by drug-coated balloon angioplasty. Patient had left groin access and subsequently has to remain supine for approximately [address] Rainey requested patient be admitted for further monitoring of cath site for bleeding and postop complications, hospital medicine agreeable to admit. #S/p Bolus valorie aortogram RLE w/ left femoral access #Peripheral vascular disease ? Patient's status post aortogram with runoff, laying supine currently, left groin dressing clean dry and intact. No complaints of pain at this time. ? Patient preoperative lab work unremarkable, creatinine 0.70, potassium 4.9, WBC 7.5. Ordered CBC, CMP, magnesium for the a.m. ? Patient can start sitting up around 6:30 PM. ? Cardiology consulted for the morning, goal LDL less than 55, patient LDL 08/22 less than 30. #Diabetes mellitus, insulin-dependent ? ACHS fingersticks, sliding scale insulin. Diabetic diet. A1c 09/21 8.6%. #Hypertension #Dyslipidemia ? Continue cardiac home medications, amlodipine 5 mg daily, aspirin 81 mg daily, isosorbide 30 mg daily, lisinopril 10 mg daily, metoprolol 50 mg twice daily. ? Start DAPT therapy per cardiology, Plavix 75 mg daily. #Chronic pain syndrome #DJD ? Continue new home pain medication regimen morphine 45 mg p.o. twice daily as needed for severe pain, oxycodone 5 mg every 4 hours as needed from moderate pain. Lyrica 300 mg twice daily. Full code Diabetic diet Supine until 183 Heparinized in Director Of Annual Giving
[2024-10-11] MEDS: IOPAMIDOL-250 (51%) 100ML BOT 150 ML IV (13:41)
[2024-10-11 13:43] LABS: CATHL Activated Clotting Time 396 SEC (74-125)
== END 2024-10-11 14:40 | disposition home or self-care (01) ==
LOC: CATHLAB 07:44
PROVIDERS: PCP Family Medicine; Visit Provider Internal Medicine
DX: E11.622 Type 2 diabetes mellitus with other skin ulcer (principal); L97.919 Non-pressure chronic ulcer of unspecified part of right lower leg with unspecified severity; E11.51 Type 2 diabetes mellitus with diabetic peripheral angiopathy without gangrene; I70.213 Atherosclerosis of native arteries of extremities with intermittent claudication, bilateral legs; I25.10 Atherosclerotic heart disease of native coronary artery without angina pectoris; I10 Essential (primary) hypertension; R94.39 Abnormal result of other cardiovascular function study; R94.31 Abnormal electrocardiogram [ECG] [EKG]; E78.5 Hyperlipidemia, unspecified; Z85.51 Personal history of malignant neoplasm of bladder; Z95.5 Presence of coronary angioplasty implant and graft; F17.210 Nicotine dependence, cigarettes, uncomplicated; Z79.02 Long term (current) use of antithrombotics/antiplatelets; Z79.82 Long term (current) use of aspirin; Z79.84 Long term (current) use of oral hypoglycemic drugs; Z79.4 Long term (current) use of insulin; Z79.899 Other long term (current) drug therapy; Z82.49 Family history of ischemic heart disease and other diseases of the circulatory system
CPT/HCPCS: 80048; 85025; 85347; 99152; 99153; C1725; C1760; C1769; C1894; C9764; J1200; J1644; J3010; J7040; Q9966

== ENCOUNTER 2024-11-16 17:13 | Emergency (ER) | payer MEDICARE, SELFPAY ==
--- OUTSIDE RECORDS SUMMARY | 2024-10-12 17:10 | XMS_ITS | Encounter Summary ---
Author Organization [place] [address] Care Team Providers Care Operating Room Aide Name Role Phone Beck Lazar MD Primary Care Provider [phone] Reason for Visit * Reason Comments Wound Check Patient to triage wi th sores on feet that per son look infected. Patient diabetic * Auth/Cert/Inpt (Routine) Specialty Diagnoses / Procedures Referred By Donna walton Referred To Contact Diagnoses Diabetic foot infection (HCC) Referral ID Status Reason Start Date Expiration Date Visits Re quested Visits Authorized [id number] 1 1 Encounter Details Date Type Department Care Team (Latest Contact Info) Description 10/12/2024 5:10 PM EDT - 10/25/2024 4:13 PM EDT Hospital Encounter EDG 4D [facility] [place] [id number] Nuno Eaton MD [address] [place] [address] Ahsan Parra Jr., MD [address] [place] [phone] Igor Lynn MD [address] [place] [id number] Diabetic foot infection (HCC) (Primary Dx); Simple chronic bronchitis (HCC); Major depressive disorder, single episode, severe (HCC) Discharge Disposition: Home or Self Care Social History Tobacco Use Types Packs/Day Years Used Date Smoking Tobacco: Every Day Cigarettes 1 40.7 Started: 1962; Last attempted to quit: 1989 Cigars Smokeless Tobacco: Never Comments:Cigarettes-quit 200 2 but still smokes cigars Alcohol Use Standard Drinks/Week Comments No 0 (1 standard drink = 0.6 oz pur e alcohol) [facility] Utilities Answer Date Recorded In the past 12 months has th e electric, gas, oil, or water company threatened to shut off services in your home? No 10/16/2024 Overall Financial Resource Strain (CARDIA) Answe r Date Recorded How hard is it for you to pa y for the very basics like food, housing, medical care, and heating? Not hard at all 10/16/2024 PHQ-2 Answer Date Recorded PHQ-2 Total Score 0 10/16/2024 [facility] - Occupational Stress Questionnaire Answer Date Recorded Do you feel stress - tense, restless, nervous, or anxious, or unable to sleep at night because your mind is troubled all the time - these days? Not at all 10/16/2024 Exercise Vital Sign Answer Date Recorde d On average, how many days pe r week do you engage in moderate to strenuous exercise (like a brisk walk)? 0 days 10/16/2024 On average, how many minutes do you engage in exercise at this level? 0 min 10/16/2024 Hunger Vital Sign Answer Date Recorded Within the past 12 months, y ou worried that your food would run out before you got the money to buy more. Never true 10/17/19 25 Within the past 12 months, t he food you bought just didn't last and you didn't have money to get more. Never true 10/16/2024 PRAPARE - Transportation Answer Date Re corded In the past 12 months, has l ack of transportation kept you from medical appointments or from getting medications? No 07/29 In the past 12 months, has l ack of transportation kept you from meetings, work, or from getting things needed for daily living? No 08/12/2022 [facility] Transportation Answer D ate Recorded In the past 12 months, has l ack of reliable transportation kept you from medical appointments, meetings, work or from getting things needed for daily living? No 10/16/2024 Sex and Gender Information Value Date Recorded Sex Assigned at Not on file Legal Sex Male 8:50 PM EDT Gender Identity Not on file Sexual Orientation Not on file documented as of this encounter Last Filed Vital Signs Vital Sign Reading Time Taken Comments Blood Pressure 98/56 10/25/2024 11:44 AM EDT Pulse 53 10/25/2024 1:08 PM EDT Temperature 36.7 C (98 F) 10/25/2024 11:44 AM EDT Respiratory Rate 18 10/25/2024 11:44 AM EDT Oxygen Saturation 92% 10/25/2024 11:44 AM EDT Inhaled Oxygen Concentration - - Weight 96.8 kg (213 lb 8 oz) 10/12/2024 11:21 PM EDT Height 182.9 cm (6') 10/12/2024 11:21 PM EDT Body Mass Index 28.96 10/12/2024 11:21 PM EDT documented in this encounter Functional Status * Drug Screening Score Answer Date of Assessment Author 0 10/12/2024 9:46 PM EDT Doreen Mackey RN * Question Answer Date of Assessment Author How often do you have a drin k containing alcohol? 1 10/12/2024 9:46 PM EDT Doreen Mackey R N How many drinks containing a lcohol do you have on a typical day when you are drinking? 0 10/12/2024 9:46 PM EDT Doreen Mackey R N How often do you have six or more drinks on one occasion? 0 10/12/2024 9:46 PM LIANNET Chema Mackey RN How often during the last ye ar have you found that you were not able to stop drinking once you had started? 0 10/12/2024 9:46 PM EDT Doreen Gonsales RN How often during the last ye ar have you failed to do what was normally expected of you because of drinking? 0 10/12/2024 9:46 PM LIANNET Doreen Mackey RN How often during the last ye ar have you needed a first drink in the morning to get yourself going after a heavy drinking session? 0 10/12/2024 9:46 PM EDT Rolo Mackey RN How often during the last ye ar have you had a feeling of guilt or remorse after drinking? 0 10/12/2024 9:46 PM Chema Cramer RN How often during the last ye ar have you been unable to remember what happened the night before because of your drinking? 0 10/12/2024 9:46 PM Doreen Cramer R N Have you or someone else bee n injured because of your drinking? 0 10/12/2024 9:46 PM Doreen Begum RN Has a relative, friend, doct or, or other health care worker been concerned about your drinking or suggested you cut down? 0 10/12/2024 9:46 PM Chema Cramer RN Alcohol Screening Score 1 10/12/2024 9:46 P M Doreen Cramer RN AUDIT-C to Determine Rows 4-10 0 10/12/2024 9:46 PM Doreen Cramer RN * Is the person deaf or does he/she have serious difficulty hearing? Answer Date of Assessment Author No 12/16/2016 2:35 PM Vicky Manning RN * Is the person blind or does he/she have serious difficulty seeing even when wearing glasses? Answer Date of Assessment Author No 12/16/2016 2:35 PM Vicky Manning RN * Does this person have serious difficulty walking or climbing stairs? Answer Date of Assessment Author No 12/16/2016 2:35 PM Vicky Manning RN * Does this person have difficulty dressing or bathing? Answer Date of Assessment Author No 12/16/2016 2:35 PM Vicky Manning RN * Because of a physical, mental or emotional condition, does this person have difficulty doing errands alone such as visiting a doctor's office or shopping? Answer Date of Assessment Author No 12/16/2016 2:35 PM Vicky Manning RN * Question Answer Date of Assessment Author Little interest or pleasure in doing things 0 10/16/2024 4:26 PM Valarie Gary MSW Feeling down, depressed, or hopeless 0 10/16/2024 4:26 PM Valarie Gary, [employer] PHQ-2 Total Score 0 10/16/2024 4:26 PM EDT Viridiana ValarieJILLIAN * PHQ-9 Total Score Answer Date of Assessment Author 0 10/16/2024 4:26 PM EDT Cyril Kemp MSW * PHQ-2 Total Score Answer Date of Assessment Author 0 10/16/2024 4:26 PM EDT ViridianaCyril page MSW * Suicide Severity Rating Answer Date of Assessment Author No Risk 10/12/2024 9:46 PM EDT Doreen Mackey RN * [place] Suicide Severity Rating Scale (Q shift for moderate and high) Question Answer Date of Assessment Author 1. In the past month, have y ou wished you were or wished you could go to sleep and not wake up? 0 10/12/2024 9:46 PM EDT Doreen Franco RN 2. In the past month, have y ou actually had any thoughts of killing yourself? (If no, skip to question 6) 0 10/12/2024 9:46 PM EDT Doreen Mackey R N 6. Have you ever done anythi ng, started to do anything, or prepared to do anything to end your life? 0 10/12/2024 9:46 PM EDT Doreen Lance RN documented as of this encounter Mental Status * Because of a physical, mental or emotional condition, does this person have serious difficulty concentrating, remembering or making decisions? Answer Entry Date Author No 12/16/2016 2:35 PM EDT Vicky Barnett RN documented in this encounter Discharge Summaries * Ahsan Parra Jr., MD - 10/25/2024 7:28 AM EDT [facility] Discharge Summary 35 minutes spent on discharging this patient, including summarization of medical records, review and prescription of medications, setting up patient follow up care and outpatient testing, and counseling patient and/or family, which required over 50% of this time. Patient Name: Lopez Aquino : 1945 Admit Date: 10/12/2024 Discharge Date: 10/25/2024 Admitting Physician: Ahsan Parra Jr., MD Discharging Physician: Ahsan Parra Jr., MD Reason for Hospitalization: Brief Hospital Summary: Chief Complaint Patient presents with Wound Check Patient to triage with sores on feet that per son look infected. Patient diabetic 10/22 Brief HPI HANDOFF - Dr LYNN: Admitted on 10/12/2024: with: foot wound. S/p I&D with podiatry. Awaiting vascular intervention to optimize blood flow. Angiogram today. Then needs to return to OR for closure. Assessment/Plan: Today's Condition: stable Cellulitis and abscess of foot, except toes 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 2 diabetes mellitus, 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 necrosis (HCC) Diabetic leg ulcer (HCC) - podiatry consulted - s/p I&D R dorsal foot abscess and ulcer; I&D R anterior ankle diabetic ulcer and abscess 10/14 - wound culture 10/14 growing MSSA - BCx x2 10/12 NGTD - arterial studies 10/14 with severe diffuse arterial disease throughout RLE, mod LLE arterial disease - closure pending vascular intervention - 10/22 angiogram today - continue keflex, doxy - 10/24 d/w VSURG - 10/25 d/w Podiatry MD; no plans for surgery = ok to d/c PAD (peripheral artery disease) SP left common iliac artery stent 08/23 - vascular consulted - [employer] ASA, lipitor, pletal - 10/22 successful ANGIO rgt Pop and Peroneal Art - 10/24 stable; d/w VSURG med mngmt. - 10/25 d/w Dr Eddie LONDONO (last night) = wants patient on bASA, Plavix and Eliquis. F/u in 4 weeks. Needs DAPT for min 6 months. Pain mngmt by me includes po meds prn, plus IV Morphine PRN for breakthrough pain -> which requires 24/7 continuous monitoring of data for toxicity monitoring 2/2 to potential for respiratory suppression, altered mental status, dependence and addiction. Minor neurocognitive disorder / Moods Poor short term memory, insight, judgement. Does not recall having wound on his foot, having surgery. Not appropriate to be making medical decisions independently. 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 [employer] meds include lantus 10 U qhs, metformin. Occasional highs throughout day - FSBS 4 times daily, high dose correctional algorithm - hold home metformin - lantus 40 U qhs - novolog 3 U TID with meals - rpt A1c 7.9 - 75 g carb diet - 10/24 I incr premeal and Lantus; - 10/25 I reviewed daily BS# to prevent potential life threatening complications like hypoglycemia, DKA or hyperglycemic coma: Lab Results Component Value Date FSBS 145 (H) 10/25/2024 FSBS 218 (H) 10/25/2024 FSBS 420 (H) 10/24/2024 Malignant neoplasm of urinary bladder (HCC) Was lost to follow-up but reestablished with urology-underwent cystoscopy-TURB 09/01 pathology consistent with bladder cancer - outpatient follow up - 10/23 RENAL U/S = No evidence of active obstructive uropathy or other acute finding. - 10/24 urology s/o = will f/u as outpt CAD in unga artery - [employer] ASA, lipitor, imdur - cardiac monitoring - 10/25 no angina Tobacco abuse Smokes 2ppd per family - 10/22 declines NRT ACP: THIS IS A CHANGE IN STATUS! 10/13 Patient voluntarily agrees to discuss ACP. Rowena - NO. POA - NO. They and their family will work with an criminal defense attorney once out of hospital (at home - sooner than later)to generate/update these documents. These documents protect their quality of life, prevent their family from emotional stress/harm/guilt, and can prevent any arguments therein. We discussed the importance of these documents, including but not limited to : the importance of these documents to self and family, any previous experiences with EOL care and Living nguyen, exploration of personal and spiritual beliefs, goals of care, etc.. 16 minutes of time spent on discussion, education and counseling (b/c this decision was pertinent to their current medical diagnosis, and the associated risk therein) as well as documentation in their medical record. Code Status: DNR Dr Parra 10/13/24 Dispo: - 10/24 d/w CC and treatment team members daily the patient's condition(s), status, and d/c plans; ITD is 10/25 Labs and imaging follow-up needed: BMP,CBC Consultants: Treatment Team: Consulting Physician: Grupo Kruger DPM Consulting Physician: Elvis Morgan MD Consulting Physician: Fahad Covarrubias MD Consulting Physician: Naman Murray MD Discharge Exam: BP 116/48 (BP Location: Left arm, Patient Position: Semi Fowlers) Pulse (!) 47 Temp 98.1 ??F (36.7 ??C) (Oral) Resp 16 Ht 6' (1.829 m) Wt 213 lb 8 oz (96.8 kg) SpO2 94% BMI 28.96 kg/m?? Constitutional: Alert and oriented to person, place, and time. No distress.Looks chronically debilitated Heent: op moist; no icterus. Neck: supple, no LAD, no TMG Cardiovascular: S1 and S2; Pulmonary/Chest: Effort normal and breath sounds normal. No respiratory distress. There are no wheezes. Abdominal: Soft. Bowel sounds are normal. No distension. There is no tenderness. There is no rebound and no guarding. Musculoskeletal: BLE trace edema and Neg Homans. RLE dressing c/d/I, toes warm. Neurological:chronic BLE weakness; No confusion. Psych : good mood Skin: Skin is warm and dry. No erythema. Correct Full Discharge Med List: Medication List START taking these medications clopidogreL 75 mg Tab Dose: 75 mg Qty: 30 Tablet Refills: 0 Commonly known as: PLAVIX 75 mg, Oral, DAILY CONTINUE taking these medications aspirin 81 mg Chew Refills: 0 Lancets Misc Qty: 1 box Refills: 0 Lancet 100, meter 1, strips 100 of insurance choice STOP taking these medications cilostazoL 50 mg Tab Commonly known as: PLETAL ASK your doctor about these medications acetaminophen 500 mg Tab Dose: 500 mg Refills: 0 Commonly known as: TYLENOL 500 mg, Oral, EVERY 4 HOURS PRN amLODIPine 5 mg Tab Dose: 5 mg Qty: 60 Tab Refills: 0 Commonly known as: NORVASC 5 mg, Oral, 2 TIMES DAILY atorvastatin 40 mg Tab Dose: 40 mg Qty: 30 Tab Refills: 0 Comment: 05/2018: Please contact our office to schedule your annual appointment (were due in April 2018). No further refills will be authorized. Commonly known as: LIPITOR 40 mg, Oral, DAILY CINNAMON ORAL Dose: 2,000 mg Refills: 0 cyanocobalamin 1,000 mcg Tab Dose: 1,000 mcg Qty: 90 Tablet Refills: 0 1,000 mcg, Oral, DAILY diclofenac 1 % Gel Dose: 2 g Refills: 0 Commonly known as: VOLTAREN 2 g, Topical, 2 TIMES DAILY ferrous sulfate 325 mg (65 mg iron) Tab Dose: 325 mg Qty: 90 Tablet Refills: 0 325 mg, Oral, DAILY HumaLOG U-100 Insulin 100 unit/mL Soln Dose: 10-12 Units Refills: 0 Generic drug: insulin lispro insulin glargine U-100 100 unit/mL Soln Dose: 10 Units Qty: 10 mL Refills: 0 Commonly known as: LANTUS 10 Units, Subcutaneous, EVERY EVENING (INSULIN) isosorbide mononitrate 30 mg Tb24 Dose: 30 mg Refills: 0 Commonly known as: IMDUR LEVEMIR FLEXPEN 100 unit/mL (3 mL) Inpn Dose: 50 Units Refills: 0 Generic drug: insulin detemir U-100 lisinopriL 10 mg Tab Dose: 10 mg Refills: 0 Commonly known as: PRINIVIL;ZESTril metFORMIN 500 mg Tab Dose: 500 mg Refills: 0 Commonly known as: GLUCOPHAGE metoprolol 25 mg Tab Dose: 50 mg Refills: 0 Commonly known as: LOPRESSOR mirabegron 25 mg Tb24 Dose: 25 mg Qty: 30 Tablet Refills: 0 Commonly known as: MYRBETRIQ 25 mg, Oral, DAILY morphine 15 mg Tab Dose: 15 mg Refills: 0 Commonly known as: MSIR nitroGLYCERIN 0.4 mg Subl Dose: 0.4 mg Qty: 50 Tab Refills: 2 Commonly known as: NITROSTAT 0.4 mg, Sublingual, EVERY 5 MIN PRN oxyCODONE 5 mg Tab Dose: 5 mg Refills: 0 Commonly known as: ROXICODONE pregabalin 150 mg Cap Dose: 150 mg Refills: 0 Commonly known as: LYRICA tamsulosin 0.4 mg Cap Dose: 0.4 mg Qty: 30 Capsule Refills: 0 Commonly known as: FLOMAX 0.4 mg, Oral, NIGHTLY Where to Get Your Medications These medications were sent to [facility] [address] [facility] [id number] Hours: Tuesday-Tuesday 8:00am - 6:30pm clopidogreL 75 mg Tab Condition at Discharge: good Disposition: Home Follow-up: Elvis Morgan MD [address] [place] [phone] Schedule an appointment as soon as possible for a visit in 1 month(s) Hospital follow up Naman Murray MD [address] [facility] [phone] Call Cystoscopy as scheduled Ahsan Berger DPM [address] [facility] [phone] Schedule an appointment as soon as possible for a visit on 10/30/2024 For wound re-check Ahsan Parra Jr., MD 10/25/2024 documented in this encounter Discharge Instructions * Discharge Instructions* Robert Moyer APRN - 10/24/2024 3:42 PM EDT Change dressing every other day - xeroform, 4x4, kerlix and luz wrap Follow up with Dr Berger on 10/30/24 Walk with Darco shoe * Discharge Instr - Diet* Maria Elena Ludwig RD,CHERYL - 10/23/2024 2:41 PM EDT Continue a diabetic diet at home. Prioritize high protein foods to help with wound healing. * Attachments The following attachments cannot be sent through Care Everywhere. * Diabetes and diet (Mongolian) documented in this encounter Medications at Time of Discharge amLODIPine (NORVASC) 5 mg Oral TabletIndications :Hypertension, unspecified type Take 1 Tab by mouth 2 times daily. 60 Tab 10/12/2017 apixaban (ELIQUIS) 5 mg Oral Tablet Take 1 Tablet by mouth 2 times daily. 60 Tablet 2 10/25/2024 12:55 PM EDT 10/25/2024 aspirin 81 mg Oral Tablet, Chewable Take by mouth daily (with breakfast). atorvastatin (LIPITOR) 40 mg Oral Tablet Take 1 Tab by mouth daily. 30 Tab 07/26/2018 clopidogreL (PLAVIX) 75 mg Oral Tablet Take 1 Tablet by mouth daily. 30 Tablet 10/24/2024 insulin glargine (LANTUS) 100 unit/mL (3 mL) SubQ Insulin Pen Inject 45 Units under the skin every evening. 15 mL 1 10/25/2024 insulin lispro (HUMALOG) 100 unit/mL SubQ Insulin Pen Inject 6 Units under the skin 3 times daily (with meals) AND Inject 1-15 additional units under the skin 4 times daily per sliding scale (with meals and nightly). 30 mL 1 10/25/2024 12:55 PM EDT 10/25/2024 Insulin [place], Disposable, 32 gauge x [facility] [place] Use as directed to inject insulin(s) 5 times daily. 100 Each 10/25/2024 isosorbide mononitrate (IMDUR) 30 mg Oral Tablet Sustained Release 24 hr Take 30 mg by mouth every morning. Lancets [facility] Lancet 100, meter 1, strips 100 of insurance choice 1 box 12/22/2017 lisinopriL (PRINIVIL;ZESTRIL ) 20 mg Oral Tablet tablet Take 1 Tablet by mouth daily. 30 Tablet 2 10/26/2024 metoprolol (LOPRESSOR) 25 mg tablet Take 50 mg by mouth 2 times daily. morphine (MS CONTIN) 15 mg Oral Tablet Sustained Release Take 3 Tablets by mouth every 12 hours for 30 days. 60 Tablet 10/25/2024 oxyCODONE (ROXICODONE) 5 mg Oral Tablet Take 5 mg by mouth every 4 hours as needed for Chronic Pain (G89.29). 08/24/2023 pregabalin (LYRICA) 300 mg Oral Capsule Take 1 Capsule by mouth 2 times daily. 60 Capsule 2 10/25/2024 acetaminophen (TYLENOL) 500 mg Oral Tablet Take 1 Tablet by mouth every 4 hours as needed for Pain. 09/02/2023 miconazole (MICATIN) 2 % Top Powder Apply topically 2 times daily. 71 g 10/25/2024 12:55 PM EDT 10/25/2024 cephALEXin (KEFLEX) 500 mg Oral Capsule Take 1 Capsule by mouth every 6 hours for 8 doses. 8 Capsule 10/25/2024 12:55 PM EDT 10/25/2024 doxycycline hyclate (VIBRA-TABS) 100 mg Oral Tablet Take 1 Tablet by mouth every 12 hours for 23 doses. 23 Tablet 10/25/2024 12:55 PM EDT 10/25/2024 5 documented as of this encounter Ordered Prescriptions Prescription Sig Dispense Quantity Refills Last Filled Start Date End Date pregabalin (LYRICA) 300 mg Oral Capsule Take 1 Capsule by mouth 2 times daily. 60 Capsule 2 10/25/2024 lisinopriL (PRINIVIL;ZESTRIL) 20 mg Oral Tablet tablet Take 1 Tablet by mouth daily. 30 Tablet 2 10/26/2024 insulin lispro (HUMALOG) 100 unit/mL SubQ Insulin Pen Inject 6 Units under the skin 3 times daily (with meals) AND Inject 1-15 additional units under the skin 4 times daily per sliding scale (with meals and nightly). 30 mL 1 10/25/2024 12:55 PM EDT 10/25/2024 insulin glargine (LANTUS) 100 unit/mL (3 mL) SubQ Insulin Pen Inject 45 Units under the skin every evening. 15 mL 1 10/25/2024 miconazole (MICATIN) 2 % Top Powder Apply topically 2 times daily. 71 g 10/25/2024 12:55 PM EDT 10/25/2024 5 apixaban (ELIQUIS) 5 mg Oral Tablet Take 1 Tablet by mouth 2 times daily. 60 Tablet 2 10/25/2024 12:55 PM EDT 10/25/2024 morphine (MS CONTIN) 15 mg Oral Tablet Sustained Release Take 3 Tablets by mouth every 12 hours for 30 days. 60 Tablet 10/25/2024 5 clopidogreL (PLAVIX) 75 mg Oral Tablet Take 1 Tablet by mouth daily. 30 Tablet 10/24/2024 insulin aspart U-100 (NOVOLOG) 100 unit/mL SubQ Solution Inject 1-15 Units under the skin 4 times daily (with meals and nightly). 10 mL 1 10/25/2024 doxycycline hyclate (VIBRA-TABS) 100 mg Oral Tablet Take 1 Tablet by mouth every 12 hours for 23 doses. 23 Tablet 10/25/2024 12:55 PM EDT 10/25/2024 5 cephALEXin (KEFLEX) 500 mg Oral Capsule Take 1 Capsule by mouth every 6 hours for 8 doses. 8 Capsule 10/25/2024 12:55 PM EDT 10/25/2024 5 documented in this encounter Discharge Disposition Disposition Code Departure Means Destination Comment s Home or Self Snf documented in this encounter Progress Notes * Amara Davis, PT - 10/25/2024 3:40 PM EDT 10/25/24 1539 PT Subjective Note Type Follow Up Treatment Attempt Patient Room/Unit 4417 PT Subjective Comments #1 pt noted to have active d/c order in and was not present in room upon attempt. Therapy delay reason Other (comment) (discharging today) * Shweta Spain CPhT - 10/25/2024 1:31 PM EDT Discharge Medication Delivery Service DMD avionic technician has delivered the following medications for Lopez Lanza Sr. Miles : Rx#[id number]:CEPHALEXIN 500 MG CAPSULE-500 mg EVERY 6 HOURS SCHEDULED Rx#[id number]:DOXYCYCLINE HYCLATE 100 MG TABLET-100 mg EVERY 12 HOURS SCHEDULED Rx#[id number]:APIXABAN 5 MG TABLET-5 mg 2 TIMES DAILY Rx#[id number]:MICONAZOLE NITRATE 2 % TOPICAL POWDER-0 2 TIMES DAILY Rx#[id number]:INSULIN LISPRO (U-100) 100 UNIT/ML SUBCUTANEOUS PEN-6 Units 3 TIMES DAILY WITH MEALS Date/Time of Delivery: 10/25/2024 1:31 PM Delivered to: pt room 4417, handed to brother in room Please contact DMD avionic technician with any questions. Thanks! Shweta Spain CPhT * Elham Stewart RN - 10/25/2024 12:57 PM EDT 10/25/24 1254 Ongoing Discharge Planning Evaluation Completed by CC/SW Yes Discussed discharge plans with Patient/Family/Caregiver/Support Person Yes, Discussed with patient and caregiver/support person Discussed discharge plans with Care Team at [facility] Yes, with nurse in attendance;Yes, with doctor in attendance Discharge to Home Health;Home with Family Actual Discharge Plan 10/25/24: CC FINAL: Patient discharging home. Patient agreeable for . Referral sent to [facility]. Home health orders placed. Spoke to Rosa at [facility]. They are able to accept and are aware patient discharging home. Patient and son Madhu aware HH arranged. Son is providing transportation home. CC signing off. Final Note Discharge Round Completed Yes Care Coordination Discharge Ready? Yes Post Acute Provider [facility] DME Arranged at Discharge None Transportation at Discharge Personal vehicle Date Expected 10/25/24 Confirmed Discharge Transportation Plan? Yes Patient Aware and Agrees with DC Plan Yes Primary Caregiver/Legal Decision Maker aware and agree with Discharge Plan Yes Name of Family member notified Madhu-son Family Member Notified Relationship to Patient Legal Next of Kin Does family and/or caregiver verbalize readiness, willingness, and ability to provide or support patient's self-management activities as appropriate? Yes, patient's primary caregiver reports no concerns regarding discharge plan MD Aware of Plan Yes RN Notified of Plan Yes * Sharon Christianson RD,LD - 10/25/2024 12:45 PM EDT [facility] Nutrition Reassessment Evidence Supported Malnutrition Diagnosis: No malnutrition identified Nutrition Problem/Diagnosis: Nutrition Diagnosis Problem 1: Increased nutrient needs (specify) (protein) related to increased demand for energy/nutrients as evidenced by wounds. Status: Active nutrition diagnosis Nutrition Prescription: Kcals: 2893-4803 (25-30 kcal/96.8kg) K Edi Needs Based On: Kcal/kg - specify (Comment) Protein (g): 116-145 Protein needs based on: 1.2-1.5 g/kg Fluid (ml): 1 ml/kcal or per MD Other (comment): reviewed Plan/Interventions: Meals and Snacks: 75 gm Carbohydrate Controlled Medical Food Supplements: (Does not like and wants dc'd) Medical Food/Supplement Freq: trial Nutrition-Related Medication Management: Novolog, lantus Nutrition Education: Carbohydrate Counting, Increased nutrients for wound healing, Supplements Collaboration And Referral Of Nutrition Care: Collaboration with other providers Nutrition Discharge Instructions: Continue a diabetic diet at home. Prioritize high protein foods to help with wound healing. Lopez Lanza SrMaru Aquino is a 79 y.o. male patient. Admit Diagnosis: Diabetic foot infection (HCC) [E11.628, L08.9] Subjective: Subjective Comment: f/u visit. Very pleasant. States going home today. Reports tolerating diet and will eat better when he gets home. Handout on Nutrition for wound healing given and reviewed. Had noquestions/concerns. Briefly discussed working on controlling his BS's. voiced I know . Anthropometric Measurements: Food/Nutrition Related History: Dietary Orders Ordered 75 Gram Consistent Carbohydrate Diet DIET EFFECTIVE NOW 10/23/24 0824 ENSURE High Protein oral supplement 1 Each Oral Q AM 1 Each at 10/24/24 0900 Food Insecurity Within the past 12 months, you worried that your food would run out before you got the money to buymore.: Never true Within the past 12 months, the food you bought just didn't last and you didn't have money to get more.: Never true % Avg Meals Consumed: 61 % (9 meals. Reports not liking most of our food. but has good appetite) Supplement Acceptance: Does not like them and wants cancelled. Tube Feeding?: No TPN?: No Food Allergies: NKFA Level of Assistance: Independent Chewing Difficulty: No Swallowing Difficulty: No Nutrition Focused Physical Findings: Physical Exam?: Yes Subcutaneous Fat Loss--Orbital: Well-nourished Subcutaneous Fat Loss--Buccal (Cheek): Well-nourished Subcutaneous Fat Loss--Triceps: Well-nourished Subcutaneous Fat Loss--Thoracic/Lumbar: Unable to assess Muscle Loss--Temporalis : Mild Muscle Loss--Clavicle Pectoralis/Trapezius: Well-nourished Muscle Loss--Clavicle and Acromion (Shoulder): Well-nourished Muscle Loss--Scapula: Well-nourished Muscle Loss--Interosseous: Mild Muscle Loss--Patellar: Well-nourished Muscle Loss--Quadricep: Well-nourished Muscle Loss--Gastrocnemius (Calf): Well-nourished Functional Status: No Dysfunction LDAs- Active NG/OG/NJ,Wound,Pressure Injury,or Drain Wound Duration Incision/Wound Diabetic ulcer Foot Right;Anterior diabetic ulcer, right foot and right toe 105 days Incision/Wound Abrasion(s) Toe Left;Anterior left toe, eschar/ redness. 13 days Incision/Wound Closed Surgical Groin Left;Proximal;Anterior Dressing covering, gauze and tegaderm. 13 days Incision/Wound Diabetic ulcer Foot Right;Anterior diabetic ulcer, right toe 13 days Incision/Wound Skin tear Pretibial Distal;Right Open wound on pretibial, possible skin tear 13 days Incision/Wound Open Surgical Foot Right 11 days Drain Duration External Urinary Catheter Male Purewick 4 days I/O last 3 completed shifts: In: 723.9 [P.O.:480; I.V.:243.9] Out: 1400 [Urine:1400] Edema: Abdomen: Abdominal/GI Bowel Sounds (All Quadrants): Active Abdominal palpation: Soft Nausea: No When was last BM? (Date): 10/23/24 Stool Assessment: Stool Occurrence: 1 Stool Appearance: Type 4 [place] Stool Chart Stool Color: Brown Stool Amount: Large Biochemical Data/Medical Tests: Pertinent Meds: reviewed Pertinent Labs: reviewed Clinical Course: Clinical Course: Pt admitted for foot infection, podiatry consulted, abx started. S/p I&D 10/14,RLE angio 10/22. Will need RLE closure. 10/24: Podiatry: f/u o/p w/ WC for wound debridement & skin grafting: Urology s/o * Kimberly Pavon PharmD - 10/24/2024 9:47 PM EDT Pharmacy Consult Note: Heparin S: Lopez Aquino is a(n) 79 y.o. male with diagnosis of peripheral artery disease. Allergies: Patient has no known allergies.. Pharmacy managing heparin therapy. Bleeding signs/symptoms noted: hematuria and scattered bruising. O: Anticoagulation therapy received prior to consult: heparin 1400 unit/hour Most Recent Labs: Recent Labs 10/23/24 1853 10/24/24 0649 WBC 6.5 6.1 HGB 13.8 12.3* HCT 42.9 38.5* PLT 163 158 Recent Labs 10/24/24 0649 10/24/24 1510 10/24/24 2054 HEPARINLEVEL 0.14* 0.19* 0.27* Recent Labs 10/18/24 0718 10/19/24 1111 BUN 23 18 CREATININE 0.67 0.69 Weight: 213 lb 8 oz (96.8 kg) A/P: Physician orders and progress notes reviewed. Hgb/Hct are declining slowly. Platelets are stable. Anti-Xa is Subtherapeutic at 0.27. Will increase to 1600 units/hour. Will follow pertinent lab parameters 10/25 am and adjust for goal (anti-Xa 0.3 - 0.7 unit/mL). Platelets are being monitored at least every 48 hours while the patient is receiving unfractionatedheparin therapy. Kimberly Pavon PharmD * Elvis Morgan MD - 10/24/2024 6:45 PM EDT Images from the original note were not included. Patient Name:Lopez Aquino : 1945 Admit Date: 10/12/2024 5:10 PM LOS: 12 days HISTORY Interval History: Patient seen without complaints. Wants to go home. MEDICAL HISTORY Scheduled Medications: amLODIPine 5 mg Oral BID apixaban 5 mg Oral BID aspirin 81 mg Oral Daily atorvastatin 40 mg Oral Nightly cephALEXin 500 mg Oral 4 times per day clopidogreL 75 mg Oral Daily doxycycline hyclate 100 mg Oral 2 times per day ENSURE High Protein 1 Box Oral Q AM insulin aspart U-100 1-15 Units Subcutaneous QID WM insulin aspart (NovoLOG) Nutritional (prandial) insulin (Orderable) 6 Units Subcutaneous TID WM insulin glargine U-100 45 Units Subcutaneous QPM (Insulin) isosorbide mononitrate 30 mg Oral Nightly lisinopriL 20 mg Oral Daily metoprolol 50 mg Oral BID miconazole Topical BID morphine 45 mg Oral 2 times per day pregabalin 300 mg Oral BID sodium chloride 0.9% Intravenous 2 times per day Infusions: Allergy: No Known Allergies Last Recorded Vital Signs: Temp: 98 ??F (36.7 ??C) Pulse: 53 BP: 98/56 Resp: 18 SpO2: 92 % O2 Flow Rate (L/min): 3 lpm Intake/Output Summary (Last 24 hours) at 10/25/2024 1345 Last data filed at 10/25/2024 0945 Gross per 24 hour Intake 1033.08 ml Output 1100 ml Net -66.92 ml LABS AND RADIOLOGY Pertinent Labs: CBC: CBC: Recent Labs 10/25/24 0542 WBC 6.5 HGB 11.9* HCT 38.1* MCV 92.7 PLT 154* BMP:No results for input(s): NA , K , CL , CO2 , BUN , LABALBU , CREATININE , CALCIUM , GFRAA , LABGLOM , GLUCOSE , GLU in the last 72 hours. ABG Labs:No results for input(s): PHART , VYS0ULE , DCU9UAR , ANIONGAP in the last 72 hours. Coagulation: No results for input(s): APTT , PROTIME , INR in the last 72 hours. Imaging:Reviewed PHYSICAL EXAMINATION Physical Exam: Le warm. Dressing in place Rest of PE unchanged. Active Hospital Problems Diagnosis *Cellulitis and abscess of foot, except toes Minor neurocognitive disorder Tobacco abuse DNR (do not resuscitate) 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 2 diabetes mellitus, 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 necrosis (HCC) Diabetic leg ulcer (HCC) Diabetic foot infection (HCC) Malignant neoplasm of urinary bladder (HCC) Diabetic polyneuropathy associated with type 2 diabetes mellitus (HCC) Major depressive disorder, single episode, severe (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 PAD (peripheral artery disease) Essential hypertension Diabetes mellitus type 2 in nonobese (HCC) CAD in unga artery MEDICAL DECISION MAKING Assessment: LE PAD Plan: patient status post revasc. Podiatry not doing further procedure. Discussed with Dr. Sandoval. OK for DC with AC and AP. Continue Hep gtt. Transition to eliquis. This note was completed using voice recognition technology. Despite the video game script writer's best efforts to proof read, it may still contain unintended errors. Please call with questions. Signed: Elvis Morgan MD 10/24/2024 6:45 PM This note is a late entry. Patient seen on 10/24/24. * Ahsan Parra Jr., MD - 10/24/2024 5:37 PM EDT Images from the original note were not included. PROGRESS NOTE Chief Complaint Patient presents with Wound Check Patient to triage with sores on feet that per son look infected. Patient diabetic 10/22 Brief HPI HANDOFF - Dr LYNN: Admitted on 10/12/2024: with: foot wound. S/p I&D with podiatry. Awaiting vascular intervention to optimize blood flow. Angiogram today. Then needs to return to OR for closure. Assessment/Plan: Today's Condition: GUARDED Cellulitis and abscess of foot, except toes 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 2 diabetes mellitus, 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 necrosis (HCC) Diabetic leg ulcer (HCC) - podiatry consulted - s/p I&D R dorsal foot abscess and ulcer; I&D R anterior ankle diabetic ulcer and abscess 10/14 - wound culture 10/14 growing MSSA - BCx x2 10/12 NGTD - arterial studies 10/14 with severe diffuse arterial disease throughout RLE, mod LLE arterial disease - closure pending vascular intervention - 10/22 angiogram today - continue keflex, doxy - 10/24 d/w Podiatry MD; no plans for surgery = ok to d/c PAD (peripheral artery disease) SP left common iliac artery stent 08/23 - vascular consulted - [employer] ASA, lipitor, pletal - 10/22 successful ANGIO rgt Pop and Peroneal Art - 10/24 stable; d/w VSURG med mngmt. Pain mngmt by me includes po meds prn, plus IV Morphine PRN for breakthrough pain -> which requires 24/7 continuous monitoring of data for toxicity monitoring 04/01 to potential for respiratory suppression, altered mental status, dependence and addiction. Minor neurocognitive disorder / Moods Poor short term memory, insight, judgement. Does not recall having wound on his foot, having surgery. Not appropriate to be making medical decisions independently. - will need to contact family for decision making - 10/24 stable Essential hypertension - continue [employer] norvasc, imdur, lisinopril, metoprolol - monitor and adjust as needed - 10/24 # ok 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 [employer] meds include lantus 10 U qhs, metformin. Occasional highs throughout day - FSBS 4 times daily, high dose correctional algorithm - hold home metformin - lantus 40 U qhs - novolog 3 U TID with meals - rpt A1c 7.9 - 75 g carb diet - 10/24 I incr premeal and Lantus; reviewed daily BS# to prevent potential life threatening complications like hypoglycemia, DKA or hyperglycemic coma: Lab Results Component Value Date FSBS 238 (H) 10/24/2024 FSBS 168 (H) 10/24/2024 FSBS 285 (H) 10/23/2024 Malignant neoplasm of urinary bladder (HCC) Was lost to follow-up but reestablished with urology-underwent cystoscopy-TURB 09/01 pathology consistent with bladder cancer - outpatient follow up - 10/23 RENAL U/S = No evidence of active obstructive uropathy or other acute finding. - 10/24 urology s/o = will f/u as outpt CAD in unga artery - [employer] ASA, lipitor, imdur - cardiac monitoring - 10/24 no angina Tobacco abuse Smokes 2ppd per family - 10/22 declines NRT ACP: THIS IS A CHANGE IN STATUS! 10/13 Patient voluntarily agrees to discuss ACP. Rowena - NO. ROSAA - NO. They and their family will work with an criminal defense attorney once out of hospital (at home - sooner than later)to generate/update these documents. These documents protect their quality of life, prevent their family from emotional stress/harm/guilt, and can prevent any arguments therein. We discussed the importance of these documents, including but not limited to : the importance of these documents to self and family, any previous experiences with EOL care and Living nguyen, exploration of personal and spiritual beliefs, goals of care, etc.. 16 minutes of time spent on discussion, education and counseling (b/c this decision was pertinent to their current medical diagnosis, and the associated risk therein) as well as documentation in their medical record. Code Status: DNR Dr Parra 10/13/24 Dispo: - 10/24 d/w CC and treatment team members daily the patient's condition(s), status, and d/c plans; ITD is 10/25 VTE Prophylaxis: 10/24 Patient is currently being treated with a continuous heparin gtt which requires / continuous monitoring and routine laboratory data for toxicity monitoring Recent Labs 10/18/24 0718 10/19/24 1111 10/23/24 1853 10/24/24 0649 WBC -- -- 6.5 6.1 HGB -- -- 13.8 12.3* HCT -- -- 42.9 38.5* PLT -- -- 163 158 BUN 23 18 -- -- CREATININE 0.67 0.69 -- -- Recent Labs 10/24/24 0649 10/24/24 1510 HEPARINLEVEL 0.14* 0.19* Weight: 213 lb 8 oz (96.8 kg) Subjective: No new sx Review of Systems: CONSTITUTIONAL: no fever, chills, sweats. Feels OK. HEENT/EYES: No ear or eye pain. No problems/changes with vision, hearing, or swallowing; no bloody discharge; hearing WNL. NECK/LYMPH: no pain or stiffness; No swelling or lumps or Lymphadenopathy. CHEST/RESP: No cough, shortness of breath at rest, painful respiration, or coughing up blood. CARDIO: no anginal chest pain or pressure. Not short of breath on exertion. No fast or irregular heartbeats. GI/GASTRO: nontender; + gas; No nausea, emesis, diarrhea. No black stools. : no bloody urine, dysuria, frequency or urge. No discharge. EXTREMITIES: no coldness, cramping, or new swelling. NEUROLOGIC: no mental status changes, new lateralizing weakness, numbness, or headaches. PSYCHIATRIC: no depression, anxiety or suicidality. SKIN: no blisters, rashes, pustules, or bleeding. ENDOCRINE: no sweats, weight loss, pigmentation changes, hair loss. Objective: BP (!) 139/46 (BP Location: Left arm, Patient Position: Semi Fowlers) Pulse 53 Temp 98 ??F (36.7 ??C) (Oral) Resp 16 Ht 6' (1.829 m) Wt 213 lb 8 oz (96.8 kg) SpO2 96% BMI 28.96 kg/m?? I/O last 3 completed shifts: In: 240 [P.O.:240] Out: 1650 [Urine:1650] Weight: 213 lb 8 oz (96.8 kg) Constitutional: Alert and oriented to person, place, and time today. No distress. Looks chronicallydebiltated Heent: op moist; no icterus. Neck: supple, no LAD, no TMG Cardiovascular: S1 and S2; Pulmonary/Chest: Effort normal and breath sounds normal. No respiratory distress. There are no wheezes. Abdominal: Soft. Bowel sounds are normal. No distension. There is no tenderness. There is no rebound and no guarding. Musculoskeletal: BLE 1+ edema and Neg Homans. RLE dressings c/d/I; toes warm Neurological: chronic BLE weakness. No confusion today. Psych : good mood Skin: Skin is warm and dry. No erythema. Labs: Laboratory data and diagnostic testing reviewed 10/24/24. Ahsan Parra Jr., MD 10/24/2024 5:38 PM * Kimberly Pavon, Luis - 10/24/2024 3:53 PM EDT Pharmacy Consult Note: Heparin S: Lopez Aquino is a(n) 79 y.o. male with diagnosis of peripheral artery disease. Allergies: Patient has no known allergies.. Pharmacy managing heparin therapy. Bleeding signs/symptoms noted: hematuria and scattered bruising. O: Anticoagulation therapy received prior to consult: heparin 1200 unit/hour Most Recent Labs: Recent Labs 10/23/24 1853 10/24/24 0649 WBC 6.5 6.1 HGB 13.8 12.3* HCT 42.9 38.5* PLT 163 158 Recent Labs 10/24/24 0649 10/24/24 1510 HEPARINLEVEL 0.14* 0.19* Recent Labs 10/18/24 0718 10/19/24 1111 BUN 23 18 CREATININE 0.67 0.69 Weight: 213 lb 8 oz (96.8 kg) A/P: Physician orders and progress notes reviewed. Hgb/Hct are slowly declining. Platelets are stable. Anti-Xa is Subtherapeutic at 0.19. Will increase to 1400 units/hour. Will omit bolus due to level being drawn early at 4 hours post dose change. Will follow pertinent lab parameters in 6 hours and adjust for goal (anti-Xa 0.3 - 0.7 unit/mL). Platelets are being monitored at least every 48 hours while the patient is receiving unfractionatedheparin therapy. Kimberly Pavon PharmD * oRbert Moyer, LISA - 10/24/2024 3:43 PM EDT Images from the original note were not included. Name: Lopez Aquino Date of Admission: 10/12/2024 Admitting Diagnosis: Cellulitis and abscess of foot, except toes ASSESSMENT/PLAN: S/p incision and drainage/debridement right foot and leg POD #10 Cellulitis and abscess of foot, except toes Diabetes mellitus, type II Diabetes mellitus, type II with peripheral neuropathy Peripheral arterial disease Amputation of toe of left foot Diabetic foot infection Diabetic leg ulcer with necrosis of muscle Diabetic ulcer of the right midfoot associated with type 2 diabetes mellitus with necrosis of muscle - dressing changed per nursing - elevate when able at all times - continue antibiotics - tight glycemic control - encouraged increased protein intake for wound healing - Angiogram complete, patient optimized - will follow patient as an outpatient and place grafts in wound care Discussed with Dr. Berger SUBJECTIVE: Patient seen at bedside in [facility] in follow up for right foot and leg infection. S/p incision and drainage/debridement right foot and leg POD #10. Denies any pain. Dressing clean and dry. No other complaints. OBJECTIVE: PHYSICAL EXAM: Vital Signs: BP (!) 139/46 (BP Location: Left arm, Patient Position: Semi Fowlers) Pulse 71 Temp 98 ??F (36.7 ??C) (Oral) Resp 16 Ht 6' (1.829 m) Wt 213 lb 8 oz (96.8 kg) SpO2 96% BMI 28.96 kg/m?? General: Lopez appears in no acute distress LE: Right foot and lower leg - wound base and skin edges are viable, no malodor, minimal drainage, no expressible purulence, no calor. Right dorsal foot - wound base and skin edges are viable, no malodor, minimal drainage, no expressible purulence, no calor. Distal toe ivelisse - stable eschars, no malodor, no expressible purulence, minimal drainage Laboratory Lab Results Component Value Date CULTURE No anaerobic growth at 5 days. 10/14/2024 CULTURE Positive Growth (A) 10/14/2024 CULTURE Sparse growth of Staphylococcus aureus 10/14/2024 CULTURE No growth of fungus at 5 days. 10/14/2024 LABGRAM Few WBCs 10/14/2024 LABGRAM No organisms seen 10/14/2024 Radiology No Podiatric imaging obtained in the last 24 hours. Podiatry Disposition Perspective - Medically Ready for Discharge: Yes Timeframe to follow-up?: 1 Week Location to follow-up at?: Wound Care, [facility] Provider to follow-up with?: Ahsan Berger To be arranged?: Patient to call office Medication Recommendation(s)?: none Robert Moyer APRN 10/24/2024 3:43 PM Cosigned by Ahsan Berger DPM at 10/24/2024 4:58 PM EDT Associated attestation - Ahsan Berger DPM - 10/24/2024 4:58 PM EDT I have reviewed the chief complaint and history of present illness for this patient. I have examined this patient, and participated in the care of this patient. I have reviewed the pertinent clinicalinformation including physical exam, labs, radiographic studies and the impression and plan, and I agree with the assessment and plan as documented. This patient was seen in coordination with the physician assistant chief of police/nurse practitioner. Given the severity of the patient's underlying PAD his wounds are not amenable to primary repair due to atrophic changes to his soft tissue envelope. Patient is otherwise okay for discharge from our standpoint only. He will follow-up with me i in the [place] wound care center to undergo debridement and possible skin graft applications. Ahsan Berger DPM * iMles Aguirre, OT - 10/24/2024 12:13 PM EDT 10/24/24 1157 OT Subjective Note Type Evaluation Patient Room/Unit 4417 OT Subjective Comments #1 Pt reports that his neuropathy pain in his feet is off the charts, but also says that it's about the same as what he has at home. Discharge Information Evaluation to serve as discharge summary if no further treatment provided before the facility discharge Admitting Diagnosis cellulitis and abscess of foot: Pt was admitted 10/12/24 with foot infection. Past Med Hx has a past medical history of Adjustment disorder with depressed mood (08/29/2017), Ambulates with cane, Arthritis, Bladder problem, CAD (coronary artery disease), Cancer ([facility]), Diabetes mellitus ([facility]), PERLA (dyspnea on exertion), Former smoker (01/07/2013), Full dentures, H/O hematuria,Heart murmur, Heartburn, Hypertension, Major depressive disorder, single episode, severe (HCC) (08/29/2017), Neuromuscular disorder ([facility]), Osteoarthritis, PAD (peripheral artery disease), Peripheral vascular disease, Toe infection (05/04/2018), and Wears glasses. has a past surgical history that includes Coronary angioplasty with stent (2001); Circumcision (2017); Toe amputation (Left, 08/30/2017); INTERVENTIONAL RADIOLOGY ABDOMINAL AORTOGRAM SERIALOGRAM (08/29/2017); INTERVENTIONAL RADIOLOGY ANGIOGRAM EXTREMITY BILATERAL (08/29/2017); INTERVENTIONAL RADIOLOGY REVASCULARIZATION FEMORAL POPLITEAL ARTERIAL UNILATERAL WITH PERCUTANEOUS TRANSLUMINAL ANGIOPLASTY (08/29/2017); INTERVENTIONAL RADIOLOGY FLUOROSCOPY GUIDED CENTRAL VENOUS ACCESS DEVICE PLACEMENT (09/05/2017); INTERVENTIONAL RADIOLOGY ULTRASOUND GUIDED VASCULAR ACCESS (09/05/2017); INTERVENTIONAL RADIOLOGY TUNNELED PERIPHERALLY INSERTED CENTRAL CATHETER (09/08/2017); INTERVENTIONAL RADIOLOGY TUNNEL CATHETER REMOVAL WITHOUT IMAGING (10/12/2017); Dental surgery; Cataract removal (Right, 05/10/2018); Cataract removal (Left, 05/24/2018); Toe amputation (Left, 07/24/2018); Ilio-femoral Bypass Graft (Left, 08/24/2023); bladder tumor excision (N/A, 09/02/2023); Foot surgery (Right, 10/14/2024); and debridement (10/14/2024). Clinical Course I&D of right foot and leg on 10/14 per podietry. WBAT. Vas surgery consulted forocclsions in both legs. Had RLE angio 10/22 with no interventions. Urology consulted for hematuria after heparin bolus. Needs eventual closure of right foot incisions. Unclear if will be done during this admission, or if it will be done later as OP> Precautions Therapy Precautions Yes Weight Bearing Status Weight bearing as tolerated Precaution Info Given Weight bearing Additional Comments per podietry, WBAT, but should keep legs elevated whenever possible. Home Living/Prior Function Type of Home House Home Layout Able to Live on Main level with bedroom/bathroom;Ramped entrance;Tub/Shower Number of Steps 0 Home Equipment Power wheelchair;2 wheeled walker;Shower chair Level of Assistance Needs assistance with ADLs;Needs assistance with homemaking;Ambulatory in home Lives With Son (2 sons) Fall History No falls in the last three months Driving No Additional Comments Pt reports that he is never alone and that his one son helps him w/ ADLs. Pt uses a power WC in community and sometimes in home. He generally uses RW for mobility in home. His sonhelps him to get in/out of tubshower and pt would use a shower chair. Cognition Orientation Intact Arousal Normal Safety Awareness Impaired Safety Awareness Impairment Minimal Impairments: Needs up to 25% input/direction from therapist in order to identify safety issues and maintain safety. Affect/Ability to cope Normal Command Following Normal Memory Impaired Memory impairment Poor short term memory Communication Intact Pain Screening PT/OT Patient Currently in Pain Yes Pain Rating 10 Pain Location Foot Pain Orientation Bilateral Pain Intervention(s) Medication (see eMar);Repositioned Observation Presentation Patient resting in bed Posture lordotic Observation Bed alarm;External urinary catheter UE Assessment LUE Assessment WFL RUE Assessment WFL Hand Function Hand Dominance Right Gross Grasp Functional Coordination Functional Auto Locator Strength ~symmetrical Coord/Sensation Assessed Impaired Gross Motor Coordination No apparent deficits Light Touch Severe deficits in the RLE;Severe deficits in the LLE Additional Comments severe painful neuropathy in bilat feet Perception Perception Grossly intact/normal ADL Interventions Where Assessed Edge of bed Grooming Assistance Minimal;Oral care LE Dressing Assistance Maximal;Thread LLE into underwear;Thread RLE into underwear;Don/doff L sock;Don/doff R sock;Pull up over hips Toileting Moderate assist;Maximal;External catheter Bed Mobility Supine to Sit Supervision Transfers Sit to Stand Contact guard assist;With raised bed height Stand to Sit Contact guard assistance Bed to/from chair Contact guard assist;Walker Additional Comments Pt walked w/ RW and CGA; bed > stand to pull up underwear > walked ~ 3 ft> chair OT Gait Gait Contact guard assist Gait Distance (Feet) 3 Feet Assistive Device 2 Wheel walker Pattern Slow terrie;Wide base of support Balance Sitting Balance 3/5 sits without UE support up to 30 seconds Standing Balance 2/5 indep, requires both UE support PT/OT Mobility Documentation PT/OT Mobility Score 6 Interventions Balance Training static standing/sitting for ADLs Upper Extremity Exercise AROM stretches of B UEs prior to mobility AM PAC: How much help from another person does the patient currently need... putting on and taking off regular lower body clothing? 2 bathing (including washing, rinsing, drying)? 2 toileting, which includes using toilet, bedpan or urinal? 2 putting on and taking off regular upper body clothing? 3 taking care of personal grooming such as brushing teeth? 3 eating meals? 4 AM PAC DAILY ACTIVITY SCORING Daily Activity Raw Score 16 AM PAC Daily Activity CMS 0-100% Functional Percentage 53.32 AM PAC Daily Activity CMS G Code Modifier CK Education Education To use call light to request assistance with all mobility;Patient/Family Education;Role of Therapy;Safety with mobility;Up with assistance only;Discharge planning;Precautions;Energy conservation;Educated on benefits of mobility, upright positioning, and getting out of bed Patient Safety Patient left in chair with needs in reach;Nursing notified of status;Chair/personal alarm activated Assessment Assessment Decreased ADL status;Decreased endurance;Decreased self-care transfers;Decreased high-level ADLs;Decreased sensation Prognosis Good;With continued OT s/p acute discharge;24 hour supervision recommended Rationale for Skilled Therapy Fall Risk;Balance Deficits;Not safe with independent transfers;Not safe ambulating independently;Needs verbal/tactile cues for ADL's;Needs physical cues for ADL's;Able to make measurable improvements;Decreased endurance and tolerance to activity Additional Comments Pt reports needing help from his son at baseline and pt currently still needingsignificant help w/ AdLs requiring him to bend at the waist or stand on his feet. Pt feels like hisneuropathy pain is baseline although it is extremely high. Pt wants to go home. He would benefit from continued 20/09 Sup and HH OT. Goals Patient and/or Family Goal to go home Goals Yes Goal Formulation With Patient Time for Goal Achievement/Duration of Treatment 10/31/24 ADL Goals Pt Will Perform All ADL's Minimal assistance;Supervision Pt Will Perform LE Dressing Moderate assistance Pt Will Perform Toileting Minimal assistance Functional Transfer Goals Pt Will Perform All Functional Transfers Mod indep Pt Will Transfer To Toilet Stand by assistance Plan Treatment Interventions ADL retraining;Functional transfer training;UE strengthening/ROM;Endurance training;Patient/Family training;Equipment eval/education;Compensatory technique education;CaregiverTraining OT Frequency 2-5x/wk Recommendation OT Recommendation 24-hour supervision/assist with low frequency therapy with intensity appropriate for patient need. Therapy Equipment Recommended Bedside commode Time In / Time Out 1110/1156 IP OT Evaluation Minutes 8 IP OT Individual Treatment Minutes 38 The total time spent caring for this patient included but was not limited to medical record review;hands-on treatment;communication and education with patient and/or family/caregiver;communication with nursing and/or care coordination/social work regarding patient status and discharge planning * Jacqueline Jordan APRN - 10/24/2024 8:43 AM EDT Images from the original note were not included. UROLOGY PROGRESS NOTE CSN:[id number] NAME:Lopez Aquino :1945 Subjective: Sleeping in bed Active Hospital Problems Diagnosis *Cellulitis and abscess of foot, except toes Minor neurocognitive disorder Tobacco abuse DNR (do not resuscitate) 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 2 diabetes mellitus, 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 necrosis (HCC) Diabetic leg ulcer (HCC) Diabetic foot infection (HCC) Malignant neoplasm of urinary bladder (HCC) Diabetic polyneuropathy associated with type 2 diabetes mellitus (HCC) Major depressive disorder, single episode, severe (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 PAD (peripheral artery disease) Essential hypertension Diabetes mellitus type 2 in nonobese (HCC) CAD in unga artery Vitals: Vitals: 10/24/24 0318 10/24/24 0410 10/24/24 0529 10/24/24 0803 BP: 140/57 BP Location: Left arm Patient Position: Semi Fowlers Pulse: 61 64 63 64 Resp: 16 16 Temp: 97.9 ??F (36.6 ??C) 98 ??F (36.7 ??C) TempSrc: Oral Oral SpO2: 95% 96% Weight: Height: I/O last 3 completed shifts: In: 1138.9 [P.O.:480; I.V.:658.9] Out: 1350 [Urine:1350] Exam: NAD HEENT: Sclera anicteric, No masses/rash NECK: No mass, trachea midline CV: Good color, regular rate and rhythm on peripheral palpation CHEST: No labored breathing, no audible wheezing ABD: Soft, non distended : tea colored urine in PureWick LE: No edema, no rash Medications: Scheduled Meds: amLODIPine 5 mg Oral BID aspirin 81 mg Oral Daily atorvastatin 40 mg Oral Nightly cephALEXin 500 mg Oral 4 times per day clopidogreL 75 mg Oral Daily doxycycline hyclate 100 mg Oral 2 times per day ENSURE High Protein 1 Box Oral Q AM insulin aspart U-100 1-15 Units Subcutaneous QID WM insulin aspart (NovoLOG) Nutritional (prandial) insulin (Orderable) 3 Units Subcutaneous TID WM insulin glargine U-100 40 Units Subcutaneous QPM (Insulin) isosorbide mononitrate 30 mg Oral Nightly lisinopriL 20 mg Oral Daily metoprolol 50 mg Oral BID miconazole Topical BID morphine 45 mg Oral 2 times per day pregabalin 300 mg Oral BID sodium chloride 0.9% Intravenous 2 times per day Continuous Infusions: heparin (porcine) PRN Meds:.acetaminophen, dextrose, diphenhydrAMINE, glucagon AND sterile water, hydrALAZINE, morphine, ondansetron, oxyCODONE-acetaminophen, sodium chloride 0.9%, sodium chloride 0.9% Labs: Lab Results Component Value Date WBC 6.1 10/24/2024 HGB 12.3 (L) 10/24/2024 HCT 38.5 (L) 10/24/2024 NA 136 10/19/2024 K 4.5 10/19/2024 CREATININE 0.69 10/19/2024 Imaging: US RENAL AND BLADDER Result Date: 10/23/2024 US KIDNEYS AND BLADDER, 10/23/2024 1:38 PM CLINICAL HISTORY: -gross hematuria, known bladder cancer.COMPARISON: CT 08/27/2023 PROCEDURE COMMENTS: Routine sonographic evaluation of the kidneys and bladder with paper sales representative images and nut sorter operator notes sent to PACS for radiologist review. FINDINGS: RIGHT: 9.7 x 3.9 x 5.0 cm. No hydronephrosis, solid-appearing mass, or shadowing stone. LEFT: 10.3 x4.1 x 5.3 cm. No hydronephrosis, solid-appearing mass, or shadowing stone. PELVIS: Bladder mass is not seen on this study. No evidence of active obstructive uropathy or other acute finding. - Note: Radiology results need to be interpreted within a comprehensive clinical context. If you have questions about the radiology report, please contact the office of the ordering clinician. Active Hospital Problems Diagnosis *Cellulitis and abscess of foot, except toes Minor neurocognitive disorder Tobacco abuse DNR (do not resuscitate) 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 2 diabetes mellitus, 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 necrosis (HCC) Diabetic leg ulcer (HCC) Diabetic foot infection (HCC) Malignant neoplasm of urinary bladder (HCC) Diabetic polyneuropathy associated with type 2 diabetes mellitus (HCC) Major depressive disorder, single episode, severe (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 PAD (peripheral artery disease) Essential hypertension Diabetes mellitus type 2 in nonobese (HCC) CAD in unga artery Impression/Plan: Gross Hematuria Recurrent bladder cancer S/P angioplasty on 10/22/24, anticoagulated on lovenox, ASA and plavix He is on Keflex for foot cellulitis Bladder scans ordered but not completed - discussed with nurse Clean catch UA with 1+ leuk est, culture pending, treatment per results RBUS without bladder mass or hydronephrosis H&H - stable Signing off, out office will call to arrange outpatient follow up and next cystoscopy Jacqueline Jordan APRN 10/24/2024 8:43 AM Cosigned by Naman Murray MD at 10/24/2024 2:33 PM EDT Associated attestation - Naman Murray MD - 10/24/2024 2:33 PM EDT Chart Reviewed and I agree with Jacqueline GONZALEZ's Assessment and Plan. * Jaki Ford, Irrigation Supervisor - 10/24/2024 7:53 AM EDT S: Lopez Martine Miles is a(n) 79 y.o. male with diagnosis of PAD. Allergies: Patient has no known allergies.. Pharmacy managing heparin therapy. Bleeding signs/symptoms noted: scattered bruising. O: Anticoagulation therapy received prior to consult: enoxaparin 40 mg sc daily (last dose 10/23 @ 1210) Most Recent Labs: Recent Labs 10/23/24 1853 10/24/24 0649 WBC 6.5 6.1 HGB 13.8 12.3* HCT 42.9 38.5* PLT 163 158 Recent Labs 10/24/24 0649 HEPARINLEVEL 0.14* Recent Labs 10/18/24 0718 10/19/24 1111 BUN 23 18 CREATININE 0.67 0.69 Weight: 213 lb 8 oz (96.8 kg) A/P: Physician orders and progress notes reviewed. Hgb/Hct are declining. Platelets are stable. Anti-Xa is Subtherapeutic at 0.14 IU/mL. Will increase to 1200 units/hour. Will follow pertinent lab parameters in 6 hours and adjust for goal (anti-Xa 0.3 - 0.7 unit/mL). Platelets will be monitored at least every 48 hours while on heparin infusion. Jaki Ford, Irrigation Supervisor Cosigned by Adán Dela Cruz PharmD at 10/24/2024 3:18 PM EDT * Garima Siddiqi PharmD - 10/23/2024 7:30 PM EDT Pharmacy Consult Note: Heparin S: Lopez Lanza Maru Aquino is a(n) 79 y.o. male with diagnosis of PAD. Allergies: Patient has no known allergies.. Pharmacy consulted for management of heparin pharmacotherapy. Bleeding signs/symptoms noted: scattered bruising. O: Anticoagulation therapy received prior to consult: enoxaparin 40 mg sc daily Most Recent Labs: Recent Labs 10/17/24 0641 10/18/24 0718 10/19/24 1111 BUN 27* 23 18 CREATININE 0.77 0.67 0.69 Weight: 213 lb 8 oz (96.8 kg) A/P: Physician orders and progress notes reviewed. H/H are stable Platelets are WNL and are being monitored at least every 48 hours while the patient is receiving unfractionated heparin therapy. Will initiate therapy per low dose protocol, adjusted for age, weight. Will withhold bolus given recent lovenox dose and initiate infusion at 950 units/hour (~ 10 units/kg/hr). Pharmacy will follow pertinent lab parameters in am and adjust for goal (anti-Xa 0.3 - 0.7 unit/mL). Garima Siddiqi PharmD * Elham Stewart RN - 10/23/2024 4:50 PM EDT 10/23/24 1648 Ongoing Discharge Planning Evaluation Completed by CC/SW Yes Discussed discharge plans with Patient/Family/Caregiver/Support Person Yes, Discussed with patient and caregiver/support person Discussed discharge plans with Care Team at [facility] Yes, with nurse in attendance;Yes, with doctor in attendance Repisodic List provided Yes, Provided information, demonstrated how to access quality and resource utilization data for post acute provider and offered assistance and [facility] Financial Disclosure completed Actual Discharge Plan 10/23/24: CC F/U: PT recommendation noted. Discussed with patient and son at bedside. They want to hold off at this time pending medical course. Podiatry planning foot closure, timing to be determined. Son reports patient is never alone at home and has support at home. Anticipate son will provide transportation at discharge. CC will follow. * Ahsan Parra Jr., MD - 10/23/2024 2:44 PM EDT Images from the original note were not included. PROGRESS NOTE Chief Complaint Patient presents with Wound Check Patient to triage with sores on feet that per son look infected. Patient diabetic 10/22 Brief HPI HANDOFF - Dr LYNN: Admitted on 10/12/2024: with: foot wound. S/p I&D with podiatry. Awaiting vascular intervention to optimize blood flow. Angiogram today. Then needs to return to OR for closure. Assessment/Plan: Today's Condition: GUARDED Cellulitis and abscess of foot, except toes 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 2 diabetes mellitus, 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 necrosis (HCC) Diabetic leg ulcer (HCC) - podiatry consulted - s/p I&D R dorsal foot abscess and ulcer; I&D R anterior ankle diabetic ulcer and abscess 10/14 - wound culture 10/14 growing MSSA - BCx x2 10/12 NGTD - arterial studies 10/14 with severe diffuse arterial disease throughout RLE, mod LLE arterial disease - closure pending vascular intervention - 10/22 angiogram today - continue keflex, doxy - 10/23 d/w Podiatry MELISSA; back to OR soon PAD (peripheral artery disease) SP left common iliac artery stent 08/23 - vascular consulted - [employer] ASA, lipitor, pletal - 10/22 successful ANGIO rgt Pop andPeroneal Art - 10/23 stable Pain mngmt by me includes po meds prn, plus IV Morphine PRN for breakthrough pain -> which requires 24/7 continuous monitoring of data for toxicity monitoring / to potential for respiratory suppression, altered mental status, dependence and addiction. Minor neurocognitive disorder / Moods Poor short term memory, insight, judgement. Does not recall having wound on his foot, having surgery. Not appropriate to be making medical decisions independently. - will need to contact family for decision making - 10/23 stable Essential hypertension - continue [employer] norvasc, imdur, lisinopril, metoprolol - monitor and adjust as needed - 10/23 good # 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 [employer] meds include lantus 10 U qhs, metformin. Occasional highs throughout day - FSBS 4 times daily, high dose correctional algorithm - hold home metformin - lantus 40 U qhs - novolog 3 U TID with meals - rpt A1c 7.9 - 75 g carb diet - 10/23 I reviewed daily BS# to prevent potential life threatening complications like hypoglycemia, DKA or hyperglycemic coma: Lab Results Component Value Date FSBS 131 (H) 10/23/2024 FSBS 153 (H) 10/22/2024 FSBS 147 (H) 10/22/2024 Malignant neoplasm of urinary bladder (HCC) Was lost to follow-up but reestablished with urology-underwent cystoscopy-TURB 09/01 pathology consistent with bladder cancer - outpatient follow up - 10/23 RENAL U/S = No evidence of active obstructive uropathy or other acute finding. CAD in unga artery - [employer] ASA, lipitor, imdur - cardiac monitoring - 10/23 no angina Tobacco abuse Smokes 2ppd per family - 10/22 declines NRT ACP: THIS IS A CHANGE IN STATUS! 10/13 Patient voluntarily agrees to discuss ACP. LWill - NO. POA - NO. They and their family will work with an criminal defense attorney once out of hospital (at home - sooner than later)to generate/update these documents. These documents protect their quality of life, prevent their family from emotional stress/harm/guilt, and can prevent any arguments therein. We discussed the importance of these documents, including but not limited to : the importance of these documents to self and family, any previous experiences with EOL care and Living n[facility], exploration of personal and spiritual beliefs, goals of care, etc.. 16 minutes of time spent on discussion, education and counseling (b/c this decision was pertinent to their current medical diagnosis, and the associated risk therein) as well as documentation in their medical record. Code Status: DNR Dr Parra 10/13/24 Dispo: - 10/23 d/w CC and treatment team members daily the patient's condition(s), status, and d/c plans; ITD is TBD pending return to OR VTE Prophylaxis: Qualifying Pharmacologic Prophylaxis enoxaparin (LOVENOX) injection 40 mg DAILY - LMWH/Xa Subjective: I have no c/o; I feel good Review of Systems: CONSTITUTIONAL: no fever, chills, sweats. Feels OK. HEENT/EYES: No ear or eye pain. No problems/changes with vision, hearing, or swallowing; no bloody discharge; hearing WNL. NECK/LYMPH: no pain or stiffness; No swelling or lumps or Lymphadenopathy. CHEST/RESP: No cough, shortness of breath at rest, painful respiration, or coughing up blood. CARDIO: no anginal chest pain or pressure. Not short of breath on exertion. No fast or irregular heartbeats. GI/GASTRO: nontender; + gas; No nausea, emesis, diarrhea. No black stools. : no bloody urine, dysuria, frequency or urge. No discharge. EXTREMITIES: no coldness, cramping, or new swelling. NEUROLOGIC: no mental status changes, new lateralizing weakness, numbness, or headaches. PSYCHIATRIC: no depression, anxiety or suicidality. SKIN: no blisters, rashes, pustules, or bleeding. ENDOCRINE: no sweats, weight loss, pigmentation changes, hair loss. Objective: BP 114/44 (BP Location: Left arm, Patient Position: Semi Fowlers) Pulse 56 Temp 97.7 ??F (36.5??C) (Oral) Resp 18 Ht 6' (1.829 m) Wt 213 lb 8 oz (96.8 kg) SpO2 93% BMI 28.96 kg/m?? I/O last 3 completed shifts: In: - Out: 1899 [Urine:1900] Weight: 213 lb 8 oz (96.8 kg) Constitutional: Alert and oriented to person, place, and time. No distress. Looks chronically debilitated Heent: op moist; no icterus. Neck: supple, no LAD, no TMG Cardiovascular: S1 and S2; Pulmonary/Chest: Effort normal and breath sounds normal. No respiratory distress. There are no wheezes. Abdominal: Soft. Bowel sounds are normal. No distension. There is no tenderness. There is no rebound and no guarding. Musculoskeletal: BLE trace edema and Neg Homans. RLE dressing c/d/I; toes warmer now Neurological: nonfocal - Grossly normal. No confusion. Psych : good mood, cooperative Skin: Skin is warm and dry. No erythema. Labs: Laboratory data and diagnostic testing reviewed 10/23/24. Ahsan Parra Jr., MD 10/23/2024 2:44 PM * Maria Elena Ludwig RD,LD - 10/23/2024 2:42 PM EDT [facility] Nutrition Initial Assessment Evidence Supported Malnutrition Diagnosis: No malnutrition identified Nutrition Problem/Diagnosis: Nutrition Diagnosis Problem 1: Increased nutrient needs (specify) (protein) related to increased demand for energy/nutrients as evidenced by wounds. Status: New nutrition diagnosis Nutrition Prescription: Kcals: 6804-0142 (25-30 kcal/96.8kg) K Edi Needs Based On: Kcal/kg - specify (Comment) Protein (g): 116-145 Protein needs based on: 1.2-1.5 g/kg Fluid (ml): 1 ml/kcal or per MD Plan/Interventions: Meals and Snacks: 75 gm Carbohydrate Controlled Medical Food Supplements: Ensure High Protein Medical Food/Supplement Freq: trial Nutrition Education: Importance of nutrition to healing and recovery, Carbohydrate Counting (at follow up) Nutrition Discharge Instructions: Continue a diabetic diet at home. Prioritize high protein foods to help with wound healing. Lopez Aquino is a 79 y.o. male patient. Admit Diagnosis: Diabetic foot infection (HCC) [E11.628, L08.9] Reason For Assessment: Skin integrity protocol Subjective: Subjective Comment: Consult received for skin integrity protocol. Wound care evaluated and signed off. Noted open foot wound being treated by podiatry. Pt out of room at time of attempted visit. Chart reviewed - pt with good intakes, weight is stable. Blood sugars have been elevated per chart, currently on 75 g CHO diet which is appropriate. Pt has previously been agreeable to Ensure high protein, will trial and follow up for wound healing/DM education. Anthropometric Measurements: Height: 6' (182.9 cm) Weight: 213 lb (96.6 kg) BMI (Calculated): 28.89 BMI Assessment: 25-29.9 Overweight IBW +/- 10%: 178 lb (80.7 kg) % IBW: 120 Weight History Intervals: 12 Month 12 Month--Wt History (lb): 207 lb (93.9 kg) (~13 mo) 12 Month--Wt Change (lb): 5 12 Month--% Wt Change: 2.42 % 12 Month--Wt Gain or Loss: Gain Food/Nutrition Related History: Dietary Orders Ordered 75 Gram Consistent Carbohydrate Diet DIET EFFECTIVE NOW 10/23/24 0824 Food Insecurity Within the past 12 months, you worried that your food would run out before you got the money to buymore.: Never true Within the past 12 months, the food you bought just didn't last and you didn't have money to get more.: Never true % Avg Meals Consumed: (50-100%) Tube Feeding?: No TPN?: No Food Allergies: NKFA Level of Assistance: Set Up/Assist Chewing Difficulty: Other (comment) (dentures) Swallowing Difficulty: No LDAs- Active NG/OG/NJ,Wound,Pressure Injury,or Drain Wound Duration Incision/Wound Diabetic ulcer Foot Right;Anterior diabetic ulcer, right foot and right toe 103 days Incision/Wound Abrasion(s) Toe Left;Anterior left toe, eschar/ redness. 11 days Incision/Wound Closed Surgical Groin Left;Proximal;Anterior Dressing covering, gauze and tegaderm. 11 days Incision/Wound Diabetic ulcer Foot Right;Anterior diabetic ulcer, right toe 11 days Incision/Wound Skin tear Pretibial Distal;Right Open wound on pretibial, possible skin tear 11 days Incision/Wound Open Surgical Foot Right 9 days Drain Duration External Urinary Catheter Male Courtney 2 days I/O last 3 completed shifts: In: - Out: 1900 [Urine:1900] Abdomen: Abdominal/GI Bowel Sounds (All Quadrants): Active, Audible Abdominal palpation: Soft Nausea: No When was last BM? (Date): 10/21/24 Stool Assessment: Stool Occurrence: 1 Stool Appearance: Normal for Patient Biochemical Data/Medical Tests: Pertinent Meds: novolog, lantus Pertinent Labs: BGPOC 153-322 Pertinent Medical History: DM (A1C 7.9% 10/12/24), CAD, HTN, bladder cancer s/p excision 08/2023, PAD Clinical Course: Clinical Course: Pt admitted for foot infection, podiatry consulted, abx started. S/p I&D 10/14,RLE angio 10/22. Will need RLE closure. * Alicia Smith RN - 10/23/2024 1:17 PM EDT Images from the original note were not included. WOUND CARE: Re-consulted for: right lateral heel Upon assessment, pt with the following: Right lateral/posterior heel- 2, pinpoint, red/purple, intact discolorations. Regina-skin intact and blanchable. Collaborated with wound care team in regard to etiology. Area not pressure related. Continue with prevention protocol. Encourage continuation of preventative interventions such as frequent repositioning/ scheduled turns, as well as offloading bilateral heels. Patient is on a low air loss sleep surface to manage the microclimate of the skin (ensure function is on). Primary nurse, Niya man. Will not actively follow at this time. Thanks! RIGHT HEEL * Debbie Ott, PT - 10/23/2024 1:04 PM EDT 10/23/24 1249 PT Subjective Note Type Evaluation Patient Room/Unit 4417 PT Subjective Comments #1 Pt is agreeable to PT. Others Present/Assisting Son is present on arrival, but does not stay for evaluation. Discharge Information Evaluation to serve as discharge summary if no further treatment provided before the facility discharge Admitting Diagnosis cellulitis and abscess of foot: Pt was admitted 10/12/24 with foot infection. Past Med Hx has a past medical history of Adjustment disorder with depressed mood (08/29/2017), Ambulates with cane, Arthritis, Bladder problem, CAD (coronary artery disease), Cancer ([facility]), Diabetes mellitus ([facility]), PERLA (dyspnea on exertion), Former smoker (01/07/2013), Full dentures, H/O hematuria,Heart murmur, Heartburn, Hypertension, Major depressive disorder, single episode, severe (HCC) (08/29/2017), Neuromuscular disorder ([facility]), Osteoarthritis, PAD (peripheral artery disease), Peripheral vascular disease, Toe infection (05/04/2018), and Wears glasses. has a past surgical history that includes Coronary angioplasty with stent (2001); Circumcision (2017); Toe amputation (Left, 08/30/2017); INTERVENTIONAL RADIOLOGY ABDOMINAL AORTOGRAM SERIALOGRAM (08/29/2017); INTERVENTIONAL RADIOLOGY ANGIOGRAM EXTREMITY BILATERAL (08/29/2017); INTERVENTIONAL RADIOLOGY REVASCULARIZATION FEMORAL POPLITEAL ARTERIAL UNILATERAL WITH PERCUTANEOUS TRANSLUMINAL ANGIOPLASTY (08/29/2017); INTERVENTIONAL RADIOLOGY FLUOROSCOPY GUIDED CENTRAL VENOUS ACCESS DEVICE PLACEMENT (09/05/2017); INTERVENTIONAL RADIOLOGY ULTRASOUND GUIDED VASCULAR ACCESS (09/05/2017); INTERVENTIONAL RADIOLOGY TUNNELED PERIPHERALLY INSERTED CENTRAL CATHETER (09/08/2017); INTERVENTIONAL RADIOLOGY TUNNEL CATHETER REMOVAL WITHOUT IMAGING (10/12/2017); Dental surgery; Cataract removal (Right, 05/10/2018); Cataract removal (Left, 05/24/2018); Toe amputation (Left, 07/24/2018); Ilio-femoral Bypass Graft (Left, 08/24/2023); bladder tumor excision (N/A, 09/02/2023); Foot surgery (Right, 10/14/2024); and debridement (10/14/2024). Diagnostic Testing reviewed to date. Clinical Course I&D of right foot and leg on 10/14 per podietry. WBAT. Vas surgery consulted forocclsions in both legs. Had RLE angio 10/22 with no interventions. Urology consulted for hematuria after heparin bolus. Needs eventual closure of right foot incisions. Unclear if will be done during this admission, or if it will be done later as OP> Pain Screening PT/OT Patient Currently in Pain Yes Additional Comments neuropathy in both feet. Severe. Pt is also very distracted by the male purewick irritating his scrotum. Cognition Orientation Intact Arousal Normal Safety Awareness Impaired Safety Awareness Impairment Minimal Impairments: Needs up to 25% input/direction from therapist in order to identify safety issues and maintain safety. Affect/Ability to cope Impaired Affect/Ability to cope impairment Distracted;Hyperverbal Command Following Impaired Command following impairment Minimal Impairments: Needs up to 25% input/direction from therapist inorder to follow single step commands. Memory Impaired Memory impairment Decreased recall of recent events;Other (comment) Communication Intact Additional comments expresses needs effectively. needs cuing to stay on task--easily distracted. Precautions Therapy Precautions Yes Other precautions high fall risk with alarms. Additional Comments per podietry, WBAT, but should keep legs elevated whenever possible. Home Living/Prior Function Type of Home House Home Layout Able to Live on Main level with bedroom/bathroom;Ramped entrance Number of Steps 0 Home Equipment Power wheelchair;2 wheeled walker;Shower chair (uses walker in the house and power w/c outside) Level of Assistance Needs assistance with ADLs;Needs assistance with homemaking;Ambulatory in home Lives With Son Fall History No falls in the last three months Additional Comments Son reports his job is to take care of hte patient. States he is there all of the time. Poor health IQ Re; diabetes and compliance with diet. Coord/Sensation Additional Comments severe neuropathy in both feet. very painful. Observation Presentation Patient resting in bed Posture rceived supine. bilat knee flexion contractures ~ 15 deg. Vitals stable. UE Assessment LUE Additional Comments able to use effectively for mobility RUE Additional Comments able to use effectively for mobility. LE Assessment LLE Assessment X LLE Additional Comments proximal strength ~ 3-/5. lacks full knee ext. dec ankle ROM. has h/o toe amps. RLE Assessment X RLE Additional Comments proximal strength ~ 3-/5. lacks full knee ext. ankle ROM WFL Bed Mobility Supine to Sit Moderate assistance (asks for PT hand to pull to sit. from partial sidelying.) Transfers Sit to Stand Minimal assistance;With verbal cues Stand to Sit Minimal assistance;With verbal cues Gait Gait Contact guard assist;Minimal assistance Gait Distance (Feet) 15 Feet Assistive Device 2 Wheel walker Pattern Slow terrie;Flexed knee R;Flexed knee L Additional Comments relies heavily on RW for postural support. Due to heavy lean, needs some assistance to make sharp turns. Vitals no signs of vital distress. PT/OT Mobility Documentation PT/OT Mobility Score 6 AM PAC: How much help from another person does the patient currently need... turning from your back to your side while in a flat bed without using bedrails? 3 moving from lying on your back to sitting on the side of a flat bed without using bedrails? 3 moving to and from a bed to a chair? 3 standing up from a chair using your arms (e.g. wheelchair, or bedside chair)? 3 need to walk in hospital room? 3 climbing 3-5 steps with a railing? 1 AM PAC: BASIC MOBILITY SCORING AM PAC Moblity Raw Score 16 AM PAC Mobility CMS 0-100% Functional Percentage 47.12 AM PAC Mobility CMS G Code Modifier CK Balance Sitting Balance 3/5 sits without UE support up to 30 seconds Standing Balance 2/5 indep, requires both UE support Exercise Exercise Yes Additional Comments encouraged to move LE joints frequently to prevent stiffness. Supine Supine Ankle Pumps 10 Seated Seated LAQ's 10 Education Education Role of Therapy;Safety with mobility;Cues for proper technique;Discharge planning;Up withassistance only Patient Safety Patient Safety Patient left in chair with needs in reach;Chair/personal alarm activated;Nursing notified of status Assessment Assessment Decreased functional mobility;Decreased gait;Decreased balance;Decreased activity tolerance Prognosis Fair Rationale for Skilled Therapy Fall Risk;Balance Deficits;Not safe ambulating independently;Not safewith independent transfers Additional Comments Pt presents with decreased mobiltiy and strength from being hospitalized ~ 10 days. Would benefit from ongoing therapy. Pt reports he has been to rehab hospitals in the past and they did not help as much as HHPT at home with son. Would prefer to do his therapy that way. Has power chair to help with mobility until feeling back to normal. Goals Patient and/or Family Goal to go home. PT GOALS (Yes/No) Yes Add Goals Will Perform Sit to Supine With stand by assist Will Perform Sit to Stand Supervision Will Ambulate 31-50 feet;With 2 wheel walker;With contact guard assistance Will Tolerate Exercise 6-10 reps;With verbal cues required/provided Goal Formulation With patient Time for Goal Achievement/Duration of Treatment 14 days through 11/06/24 Plan Treatment/Interventions Gait training;Bed mobility;Neuromuscular re- education;Balance training;Functional transfer training;LE strengthening/ROM;Increase activity tolerance PT Frequency 3-5x/week Recommendation PT Recommendation 24-hour supervision/assist with low frequency therapy with intensity appropriate for patient need. Additional PT discharge information HHPT Time In / Time Out [id number] IP PT Evaluation Minutes 10 IP PT Treatment Minutes 15 The total time spent caring for this patient included but was not limited to medical record review;hands-on treatment;communication and education with patient and/or family/caregiver;clinical judgement necessary for treatment planning for next session;communication with nursing and/or care coordinat ion/social work regarding patient status and discharge planning * Robert Moyer, MARKETING ANALYTICS ANALYST - 10/23/2024 12:55 PM EDT Images from the original note were not included. Name: Lopez Lanza [facility] Date of Admission: 10/12/2024 Admitting Diagnosis: Cellulitis and abscess of foot, except toes ASSESSMENT/PLAN: S/p incision and drainage/debridement right foot and leg POD #9 Cellulitis and abscess of foot, except toes Diabetes mellitus, type II Diabetes mellitus, type II with peripheral neuropathy Peripheral arterial disease Amputation of toe of left foot Diabetic foot infection Diabetic leg ulcer with necrosis of muscle Diabetic ulcer of the right midfoot associated with type 2 diabetes mellitus with necrosis of muscle - dressing changed per nursing - elevate when able at all times - continue antibiotics - tight glycemic control - encouraged increased protein intake for wound healing - Angiogram complete, patient optimized - Dr. Berger looking for time in the OR Discussed with Dr. Berger SUBJECTIVE: Patient seen at bedside in [facility] in follow up for right foot and leg infection. S/p incision and drainage/debridement right foot and leg POD #9. Denies any pain. Dressing clean and dry. No other complaints. OBJECTIVE: PHYSICAL EXAM: Vital Signs: BP 114/44 (BP Location: Left arm, Patient Position: Semi Fowlers) Pulse 56 Temp 97.7 ??F (36.5 ??C) (Oral) Resp 18 Ht 6' (1.829 m) Wt 213 lb 8 oz (96.8 kg) SpO2 93% BMI 28.96 kg/m?? General: Lopez appears in no acute distress LE: Right anterior renyolds - wound base and skin edges are viable, no malodor, minimal drainage, no expressible purulence, no calor. Right dorsal foot - wound base and skin edges are viable, no malodor,minimal drainage, no expressible purulence, no calor. Distal toe ivelisse - stable eschars, no malodor, no expressible purulence, minimal drainage Laboratory Lab Results Component Value Date CULTURE No anaerobic growth at 5 days. 10/14/2024 CULTURE Positive Growth (A) 10/14/2024 CULTURE Sparse growth of Staphylococcus aureus 10/14/2024 CULTURE No growth of fungus at 5 days. 10/14/2024 LABGRAM Few WBCs 10/14/2024 LABGRAM No organisms seen 10/14/2024 Radiology No Podiatric imaging obtained in the last 24 hours. Podiatry Disposition Perspective - Medically Ready for Discharge: No Anticipated discharge timeframe?: Unknown Discharge if / when?: foot wounds closed Robert Moyer APRN 10/23/2024 12:57 PM Cosigned by Ahsan Berger DPM at 10/23/2024 9:21 PM EDT Associated attestation - Ahsan Berger DPM - 10/23/2024 9:21 PM EDT Patient vascularly optimized. As below. * Elvis Morgan MD - 10/23/2024 9:53 AM EDT Images from the original note were not included. Patient Name:Lopez Aquino : 1945 Admitting Diagnosis: Cellulitis and abscess of foot, except toes INTERVAL HISTORY Patient seen and examined. Resting in bed. Voices no complaints. MEDICAL HISTORY Scheduled Medications: amLODIPine 5 mg Oral BID aspirin 81 mg Oral Daily atorvastatin 40 mg Oral Nightly cephALEXin 500 mg Oral 4 times per day clopidogreL 75 mg Oral Daily doxycycline hyclate 100 mg Oral 2 times per day enoxaparin 40 mg Subcutaneous Daily - LMWH/Xa insulin aspart U-100 1-15 Units Subcutaneous QID WM insulin aspart (NovoLOG) Nutritional (prandial) insulin (Orderable) 3 Units Subcutaneous TID WM insulin glargine U-100 40 Units Subcutaneous QPM (Insulin) isosorbide mononitrate 30 mg Oral Nightly lisinopriL 20 mg Oral Daily metoprolol 50 mg Oral BID miconazole Topical BID morphine 45 mg Oral 2 times per day pregabalin 300 mg Oral BID sodium chloride 0.9% Intravenous 2 times per day Allergy: No Known Allergies Last Recorded Vital Signs: Temp: 97.7 ??F (36.5 ??C) Pulse: 54 BP: 122/48 Resp: 16 SpO2: 95 % O2 Flow Rate (L/min): 3 lpm Intake/Output Summary (Last 24 hours) at 10/23/2024 0953 Last data filed at 10/23/2024 0858 Gross per 24 hour Intake 658.87 ml Output 1900 ml Net -1241.13 ml LABS AND RADIOLOGY Pertinent Labs: CBC:No results for input(s): WBC , HGB , HCT , MCV , PLT in the last 72 hours. BMP:No results for input(s): NA , K , CL , CO2 , BUN , LABALBU , CREATININE , CALCIUM , GFRAA , LABGLOM , GLUCOSE , GLU in the last 72 hours. Coagulation: No results for input(s): APTT , PROTIME , INR in the last 72 hours. Imaging:No results found. PHYSICAL EXAMINATION Physical Exam: General: No acute distress. Head: NC/AT. Resp: Effort normal. 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 Right foot with dressing, RLE warm Psych: Mood appropriate. 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 Okay for podiatry to proceed with intervention -Continue ASA and plavix -Follow up in the office in about 4 weeks -Will follow intermittently. Please call with questions or concerns Signed: Rosa Coelho APRN 10/23/2024 9:53 AM Physician Documentation: I independently evaluated the patient, performed a physical examination, and review of the history,labs and medications. I reviewed the findings of the physician assistant chief of police/nurse practitioner and discussed the case in detail. Below is a summary of my pertinent independent evaluation and findings inaddition to the assessment and plan formulated by the physician assistant chief of police/nurse practitioner. Patient seen and examined. No new issue. Lower extremities warm. No hematoma. Appreciate urology input. Will initiate anticoagulation along with antiplatelet therapy. Okay to proceed with surgery with podiatry. ELVIS MORGAN MD, FACS This note was completed using voice recognition technology. Despite the video game script writer's best efforts to proof read, it may still contain unintended errors. Please call with questions. * Gema Sousa RN - 10/22/2024 1:47 PM EDT Pt with poor short term memory, insight, and judgement. Pt not not able to make medical decisions independently. Pt and sonLopez agreeable to angiogram this am. Consent signed by Mr. Lanza's son, Lopez. Gema Sousa, RN * Igor Lynn MD - 10/22/2024 9:44 AM EDTAssociated Problem(s): Cellulitis and abscess of foot, except toes WBC wnl at admit. ESR wnl. CRP 28.69 at admit. XR bilteral tib fib with no acute findings. XR bilateral feet with small amt of subcutaneous gas in dorsum of R foot, no acute bony findings - podiatry consulted - s/p I&D R dorsal foot abscess and ulcer; I&D R anterior ankle diabetic ulcer and abscess 10/14 - wound culture 10/14 growing MSSA - BCx x2 10/12 NGTD - arterial studies 10/14 with severe diffuse arterial disease throughout RLE, mod LLE arterial disease - closure pending vascular intervention - angiogram today - NPO - continue keflex, doxy * Igor Lynn MD - 10/22/2024 9:44 AM EDTAssociated Problem(s): 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 2 diabetes mellitus, with necrosis of muscle (HCC) WBC wnl at admit. ESR wnl. CRP 28.69 at admit. XR bilteral tib fib with no acute findings. XR bilateral feet with small amt of subcutaneous gas in dorsum of R foot, no acute bony findings - podiatry consulted - s/p I&D R dorsal foot abscess and ulcer; I&D R anterior ankle diabetic ulcer and abscess 10/14 - wound culture 10/14 growing MSSA - BCx x2 10/12 NGTD - arterial studies 10/14 with severe diffuse arterial disease throughout RLE, mod LLE arterial disease - closure pending vascular intervention - angiogram today - NPO - continue keflex, doxy * Igor Lynn MD - 10/22/2024 9:44 AM EDTAssociated Problem(s): Diabetic leg ulcer (HCC) WBC wnl at admit. ESR wnl. CRP 28.69 at admit. XR bilteral tib fib with no acute findings. XR bilateral feet with small amt of subcutaneous gas in dorsum of R foot, no acute bony findings - podiatry consulted - s/p I&D R dorsal foot abscess and ulcer; I&D R anterior ankle diabetic ulcer and abscess 10/14 - wound culture 10/14 growing MSSA - BCx x2 10/12 NGTD - arterial studies 10/14 with severe diffuse arterial disease throughout RLE, mod LLE arterial disease - closure pending vascular intervention - angiogram today - NPO - continue keflex, doxy * Igor Lynn MD - 10/22/2024 9:44 AM EDTAssociated Problem(s): PAD (peripheral artery disease) SP left common iliac artery stent 08/23 - vascular consulted - NPO - angiogram today - [employer] ASA, lipitor, pletal - arterial studies as above * Igor Lynn MD - 10/22/2024 9:44 AM EDTAssociated Problem(s): Minor neurocognitive disorder Poor short term memory, insight, judgement. Does not recall having wound on his foot, having surgery. Not appropriate to be making medical decisions independently. - will need to contact family for decision making - discussed with Mr. Lanza's son Lopez - discussed with podiatry, vascular * Igor Lynn MD - 10/22/2024 9:44 AM EDTAssociated Problem(s): Essential hypertension Remains controlled - continue [employer] norvasc, imdur, lisinopril, metoprolol - monitor and adjust as needed * Igor Lynn MD - 10/22/2024 9:44 AM EDTAssociated Problem(s): Diabetes mellitus type 2 in nonobese (HCC) Last A1c 10.2 in 07/2023. [employer] meds include lantus 10 U qhs, metformin. Occasional highs throughout day - FSBS 4 times daily, high dose correctional algorithm - hold home metformin - lantus 40 U qhs - novolog 3 U TID with meals - rpt A1c 7.9 - 75 g carb diet * Igor Lynn MD - 10/22/2024 9:44 AM EDTAssociated Problem(s): Malignant neoplasm of urinary bladder (HCC) Was lost to follow-up but reestablished with urology-underwent cystoscopy-TURB 09/01 pathology consistent with bladder cancer - outpatient follow up * Igor Lynn MD - 10/22/2024 9:44 AM EDTAssociated Problem(s): CAD in unga artery - [employer] ASA, lipitor, imdur - cardiac monitoring * Igor Lynn MD - 10/22/2024 9:44 AM EDTAssociated Problem(s): Major depressive disorder, single episode, severe (HCC) Not on meds [employer] * Igor Lynn MD - 10/22/2024 9:44 AM EDTAssociated Problem(s): Diabetic polyneuropathy associated with type 2 diabetes mellitus (HCC) - [employer] lyrica * Igor Lynn MD - 10/22/2024 9:44 AM EDTAssociated Problem(s): DNR (do not resuscitate) - orders in place * Igor Lynn MD - 10/22/2024 9:44 AM EDTAssociated Problem(s): Tobacco abuse Smokes 2ppd per family - declines NRT * Igor Lynn MD - 10/22/2024 9:41 AM EDT PROGRESS NOTE Handoff Completed:Yes/No: Yes Disposition Perspective - Medically ready for discharge: No Anticipated ready for discharge timeframe?: ?5 days Ready for discharge when / if?: vascular intervention done, podiatry intervention done Admitted on 10/12/2024: with: foot wound. S/p I&D with podiatry. Awaiting vascular intervention to optimize blood flow. Angiogram today. Then needs to return to OR for closure. Estimated Date of Discharge: 10/26/2024 Assessment/Plan: Assessment & Plan Cellulitis and abscess of foot, except toes 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 2 diabetes mellitus, 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 necrosis (HCC) Diabetic leg ulcer (HCC) WBC wnl at admit. ESR wnl. CRP 28.69 at admit. XR bilteral tib fib with no acute findings. XR bilateral feet with small amt of subcutaneous gas in dorsum of R foot, no acute bony findings - podiatry consulted - s/p I&D R dorsal foot abscess and ulcer; I&D R anterior ankle diabetic ulcer and abscess 10/14 - wound culture 10/14 growing MSSA - BCx x2 10/12 NGTD - arterial studies 10/14 with severe diffuse arterial disease throughout RLE, mod LLE arterial disease - closure pending vascular intervention - angiogram today - NPO - continue keflex, doxy PAD (peripheral artery disease) SP left common iliac artery stent 08/23 - vascular consulted - NPO - angiogram today - [employer] ASA, lipitor, pletal - arterial studies as above Minor neurocognitive disorder Poor short term memory, insight, judgement. Does not recall having wound on his foot, having surgery. Not appropriate to be making medical decisions independently. - will need to contact family for decision making - discussed with Mr. Lanza's son Lopez - discussed with podiatry, vascular Essential hypertension Remains controlled - continue [employer] norvasc, imdur, lisinopril, metoprolol - monitor and adjust as needed Diabetes mellitus type 2 in nonobese (HCC) Last A1c 10.2 in 07/2023. [employer] meds include lantus 10 U qhs, metformin. Occasional highs throughout day - FSBS 4 times daily, high dose correctional algorithm - hold home metformin - lantus 40 U qhs - novolog 3 U TID with meals - rpt A1c 7.9 - 75 g carb diet Malignant neoplasm of urinary bladder (HCC) Was lost to follow-up but reestablished with urology-underwent cystoscopy-TURB 09/01 pathology consistent with bladder cancer - outpatient follow up CAD in unga artery - [employer] ASA, lipitor, imdur - cardiac monitoring Major depressive disorder, single episode, severe (HCC) Not on meds [employer] Diabetic polyneuropathy associated with type 2 diabetes mellitus (HCC) - [employer] lyrica DNR (do not resuscitate) - orders in place Tobacco abuse Smokes 2ppd per family - declines NRT Dispo: Angiogram today Anticipate TCU after VTE Prophylaxis: Qualifying Pharmacologic Prophylaxis enoxaparin (LOVENOX) injection 40 mg DAILY - LMWH/Xa Active Hospital Problems Diagnosis *Cellulitis and abscess of foot, except toes Minor neurocognitive disorder Tobacco abuse DNR (do not resuscitate) 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 2 diabetes mellitus, 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 necrosis (HCC) Diabetic leg ulcer (HCC) Diabetic foot infection (HCC) Malignant neoplasm of urinary bladder (HCC) Diabetic polyneuropathy associated with type 2 diabetes mellitus (HCC) Major depressive disorder, single episode, severe (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 Lanza is resting in bed. His son is at bedside. They're working on a crossword. He denies any concerns. Objective: BP 174/52 (BP Location: Right arm, Patient Position: Semi Fowlers) Pulse 54 Temp 97.8 ??F (36.6??C) (Oral) Resp 18 Ht 6' (1.829 m) Wt 213 lb 8 oz (96.8 kg) SpO2 93% BMI 28.96 kg/m?? I/O last 3 completed shifts: In: 250 [P.O.:250] Out: 100 [Urine:100] Weight: 213 lb 8 oz (96.8 kg) Constitutional: Alert and oriented to person, place, and time. No distress. Cardiovascular: Normal rate and regular rhythm. Pulmonary/Chest: Effort normal and breath sounds normal. Musculoskeletal: No edema. Neurological: Grossly normal. Skin: Skin is warm and dry. Dressing RLE clean, dry, intact. Labs: Laboratory data and diagnostic testing reviewed 10/22/24. Igor Lynn MD 10/22/2024 9:41 AM * Igor Lynn MD - 10/21/2024 12:28 PM EDTAssociated Problem(s): Cellulitis and abscess of foot, except toes WBC wnl at admit. ESR wnl. CRP 28.69 at admit. XR bilteral tib fib with no acute findings. XR bilateral feet with small amt of subcutaneous gas in dorsum of R foot, no acute bony findings - podiatry consulted - s/p I&D R dorsal foot abscess and ulcer; I&D R anterior ankle diabetic ulcer and abscess 10/14 - wound culture 10/14 growing MSSA - BCx x2 10/12 NGTD - arterial studies 10/14 with severe diffuse arterial disease throughout RLE, mod LLE arterial disease - closure pending vascular intervention - possible angiogram tomorrow - discussed with vascular - NPO at midnight - continue keflex, doxy * Igor Lynn MD - 10/21/2024 12:28 PM EDTAssociated Problem(s): 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 2 diabetes mellitus, with necrosis of muscle (HCC) WBC wnl at admit. ESR wnl. CRP 28.69 at admit. XR bilteral tib fib with no acute findings. XR bilateral feet with small amt of subcutaneous gas in dorsum of R foot, no acute bony findings - podiatry consulted - s/p I&D R dorsal foot abscess and ulcer; I&D R anterior ankle diabetic ulcer and abscess 10/14 - wound culture 10/14 growing MSSA - BCx x2 10/12 NGTD - arterial studies 10/14 with severe diffuse arterial disease throughout RLE, mod LLE arterial disease - closure pending vascular intervention - possible angiogram tomorrow - discussed with vascular - NPO at midnight - continue keflex, doxy * Igor Lynn MD - 10/21/2024 12:28 PM EDTAssociated Problem(s): Diabetic leg ulcer (HCC) WBC wnl at admit. ESR wnl. CRP 28.69 at admit. XR bilteral tib fib with no acute findings. XR bilateral feet with small amt of subcutaneous gas in dorsum of R foot, no acute bony findings - podiatry consulted - s/p I&D R dorsal foot abscess and ulcer; I&D R anterior ankle diabetic ulcer and abscess 10/14 - wound culture 10/14 growing MSSA - BCx x2 10/12 NGTD - arterial studies 10/14 with severe diffuse arterial disease throughout RLE, mod LLE arterial disease - closure pending vascular intervention - possible angiogram tomorrow - discussed with vascular - NPO at midnight - continue keflex, doxy * Igor Lynn MD - 10/21/2024 12:28 PM EDTAssociated Problem(s): PAD (peripheral artery disease) SP left common iliac artery stent 08/23 - vascular consulted - NPO at midnight - angiogram tomorrow? - [employer] ASA, lipitor, pletal - arterial studies as above * Igor Lynn MD - 10/21/2024 12:28 PM EDTAssociated Problem(s): Minor neurocognitive disorder Poor short term memory, insight, judgement. Does not recall having wound on his foot, having surgery. Not appropriate to be making medical decisions independently. - will need to contact family for decision making - discussed with Mr. Lanza's son Lopez - discussed with podiatry, vascular * Igor Lynn MD - 10/21/2024 12:28 PM EDTAssociated Problem(s): Essential hypertension Remains controlled - continue [employer] norvasc, imdur, lisinopril, metoprolol - monitor and adjust as needed * Igor Lynn MD - 10/21/2024 12:28 PM EDTAssociated Problem(s): Diabetes mellitus type 2 in nonobese (HCC) Last A1c 10.2 in 07/2023. [employer] meds include lantus 10 U qhs, metformin. Occasional highs throughout day - FSBS 4 times daily, high dose correctional algorithm - hold home metformin - lantus 40 U qhs - novolog 3 U TID with meals - increase to 6 - rpt A1c 7.9 - 75 g carb diet * Igor Lynn MD - 10/21/2024 12:28 PM EDTAssociated Problem(s): Malignant neoplasm of urinary bladder (HCC) Was lost to follow-up but reestablished with urology-underwent cystoscopy-TURB 09/01 pathology consistent with bladder cancer - outpatient follow up * Igor Lynn MD - 10/21/2024 12:28 PM EDTAssociated Problem(s): CAD in unga artery - [employer] ASA, lipitor, imdur - cardiac monitoring * Igor Lynn MD - 10/21/2024 12:28 PM EDTAssociated Problem(s): Major depressive disorder, single episode, severe (HCC) Not on meds [employer] * Igor Lynn MD - 10/21/2024 12:28 PM EDTAssociated Problem(s): Diabetic polyneuropathy associated with type 2 diabetes mellitus (HCC) - [employer] lyrica * Igor Lynn MD - 10/21/2024 12:28 PM EDTAssociated Problem(s): DNR (do not resuscitate) - orders in place * Igor Lynn MD - 10/21/2024 12:28 PM EDTAssociated Problem(s): Tobacco abuse Smokes 2ppd per family - declines NRT * Igor Lynn MD - 10/21/2024 12:25 PM EDT PROGRESS NOTE Assessment/Plan: Assessment & Plan Cellulitis and abscess of foot, except toes 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 2 diabetes mellitus, 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 necrosis (HCC) Diabetic leg ulcer (HCC) WBC wnl at admit. ESR wnl. CRP 28.69 at admit. XR bilteral tib fib with no acute findings. XR bilateral feet with small amt of subcutaneous gas in dorsum of R foot, no acute bony findings - podiatry consulted - s/p I&D R dorsal foot abscess and ulcer; I&D R anterior ankle diabetic ulcer and abscess 10/14 - wound culture 10/14 growing MSSA - BCx x2 10/12 NGTD - arterial studies 10/14 with severe diffuse arterial disease throughout RLE, mod LLE arterial disease - closure pending vascular intervention - possible angiogram tomorrow - discussed with vascular - NPO at midnight - continue keflex, doxy PAD (peripheral artery disease) SP left common iliac artery stent 08/23 - vascular consulted - NPO at midnight - angiogram tomorrow? - [employer] ASA, lipitor, pletal - arterial studies as above Minor neurocognitive disorder Poor short term memory, insight, judgement. Does not recall having wound on his foot, having surgery. Not appropriate to be making medical decisions independently. - will need to contact family for decision making - discussed with Mr. Lanza's son Lopez - discussed with podiatry, vascular Essential hypertension Remains controlled - continue [employer] norvasc, imdur, lisinopril, metoprolol - monitor and adjust as needed Diabetes mellitus type 2 in nonobese (HCC) Last A1c 10.2 in 07/2023. [employer] meds include lantus 10 U qhs, metformin. Occasional highs throughout day - FSBS 4 times daily, high dose correctional algorithm - hold home metformin - lantus 40 U qhs - novolog 3 U TID with meals - increase to 6 - rpt A1c 7.9 - 75 g carb diet Malignant neoplasm of urinary bladder (HCC) Was lost to follow-up but reestablished with urology-underwent cystoscopy-TURB 09/01 pathology consistent with bladder cancer - outpatient follow up CAD in unga artery - [employer] ASA, lipitor, imdur - cardiac monitoring Major depressive disorder, single episode, severe (HCC) Not on meds [employer] Diabetic polyneuropathy associated with type 2 diabetes mellitus (HCC) - [employer] lyrica DNR (do not resuscitate) - orders in place Tobacco abuse Smokes 2ppd per family - declines NRT Dispo: Continue current level of care Discussed with vascular surgery, family. Plans for NPO at midnight. Consents to be signed by family. VTE Prophylaxis: Qualifying Pharmacologic Prophylaxis enoxaparin (LOVENOX) injection 40 mg DAILY - LMWH/Xa Active Hospital Problems Diagnosis *Cellulitis and abscess of foot, except toes Minor neurocognitive disorder Tobacco abuse DNR (do not resuscitate) 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 2 diabetes mellitus, 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 necrosis (HCC) Diabetic leg ulcer (HCC) Diabetic foot infection (HCC) Malignant neoplasm of urinary bladder (HCC) Diabetic polyneuropathy associated with type 2 diabetes mellitus (HCC) Major depressive disorder, single episode, severe (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 Lanza has his son at bedside. He's doing okay. No overnight events. Objective: BP 161/84 (BP Location: Right arm, Patient Position: Semi Fowlers) Pulse 59 Temp 98.2 ??F (36.8??C) (Oral) Resp 18 Ht 6' (1.829 m) Wt 213 lb 8 oz (96.8 kg) SpO2 95% BMI 28.96 kg/m?? I/O last 3 completed shifts: In: 225 [P.O.:225] Out: 100 [Urine:100] Weight: 213 lb 8 oz (96.8 kg) Constitutional: Alert and oriented to person, place, and time. No distress. Cardiovascular: Normal rate and regular rhythm. Pulmonary/Chest: Effort normal. No respiratory distress. There are no wheezes. Musculoskeletal: No edema. Neurological: Grossly normal. Skin: Skin is warm and dry. Dressing over RLE Labs: Laboratory data and diagnostic testing reviewed 10/21/24. Igor Lynn MD 10/21/2024 12:25 PM * Igor Lynn MD - 10/20/2024 12:10 PM EDTAssociated Problem(s): Cellulitis and abscess of foot, except toes WBC wnl at admit. ESR wnl. CRP 28.69 at admit. XR bilteral tib fib with no acute findings. XR bilateral feet with small amt of subcutaneous gas in dorsum of R foot, no acute bony findings - podiatry consulted - s/p I&D R dorsal foot abscess and ulcer; I&D R anterior ankle diabetic ulcer and abscess 10/14 - wound culture 10/14 growing MSSA - BCx x2 10/12 NGTD - arterial studies 10/14 with severe diffuse arterial disease throughout RLE, mod LLE arterial disease - closure pending vascular intervention - continue keflex, doxy * Igor Lynn MD - 10/20/2024 12:10 PM EDTAssociated Problem(s): 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 2 diabetes mellitus, with necrosis of muscle (HCC) WBC wnl at admit. ESR wnl. CRP 28.69 at admit. XR bilteral tib fib with no acute findings. XR bilateral feet with small amt of subcutaneous gas in dorsum of R foot, no acute bony findings - podiatry consulted - s/p I&D R dorsal foot abscess and ulcer; I&D R anterior ankle diabetic ulcer and abscess 10/14 - wound culture 10/14 growing MSSA - BCx x2 10/12 NGTD - arterial studies 10/14 with severe diffuse arterial disease throughout RLE, mod LLE arterial disease - closure pending vascular intervention - continue keflex, doxy * Igor Lynn MD - 10/20/2024 12:10 PM EDTAssociated Problem(s): Diabetic leg ulcer (HCC) WBC wnl at admit. ESR wnl. CRP 28.69 at admit. XR bilteral tib fib with no acute findings. XR bilateral feet with small amt of subcutaneous gas in dorsum of R foot, no acute bony findings - podiatry consulted - s/p I&D R dorsal foot abscess and ulcer; I&D R anterior ankle diabetic ulcer and abscess 10/14 - wound culture 10/14 growing MSSA - BCx x2 10/12 NGTD - arterial studies 10/14 with severe diffuse arterial disease throughout RLE, mod LLE arterial disease - closure pending vascular intervention - continue keflex, doxy * Igor Lynn MD - 10/20/2024 12:10 PM EDTAssociated Problem(s): PAD (peripheral artery disease) SP left common iliac artery stent 08/23 - vascular consulted - [employer] ASA, lipitor, pletal - arterial studies as above * Igor Lynn MD - 10/20/2024 12:10 PM EDTAssociated Problem(s): Minor neurocognitive disorder Poor short term memory, insight, judgement. Does not recall having wound on his foot, having surgery. Not appropriate to be making medical decisions independently. - will need to contact family for decision making - discussed with Mr. Lanza's son Lopez mayorga - discussed with podiatry, vascular * Igor Lynn MD - 10/20/2024 12:10 PM EDTAssociated Problem(s): Hyperkalemia (Resolved 10/20/2024) K 5.4 at admit. - continue to monitor * Igor Lynn MD - 10/20/2024 12:10 PM EDTAssociated Problem(s): Essential hypertension Remains controlled - continue [employer] norvasc, imdur, lisinopril, metoprolol - monitor and adjust as needed * Igor Lynn MD - 10/20/2024 12:10 PM EDTAssociated Problem(s): Diabetes mellitus type 2 in nonobese (HCC) Last A1c 10.2 in 07/2023. [employer] meds include lantus 10 U qhs, metformin. Trending better - FSBS 4 times daily, high dose correctional algorithm - hold home metformin - lantus 40 U qhs - novolog 3 U TID with meals - rpt A1c 7.9 - 75 g carb diet * Igor Lynn MD - 10/20/2024 12:10 PM EDTAssociated Problem(s): Malignant neoplasm of urinary bladder (HCC) Was lost to follow-up but reestablished with urology-underwent cystoscopy-TURB 09/01 pathology consistent with bladder cancer - outpatient follow up * Igor Lynn MD - 10/20/2024 12:10 PM EDTAssociated Problem(s): CAD in unga artery - [employer] ASA, lipitor, imdur - cardiac monitoring * Igor Lynn MD - 10/20/2024 12:10 PM EDTAssociated Problem(s): Major depressive disorder, single episode, severe (HCC) Not on meds [employer] * Igor Lynn MD - 10/20/2024 12:10 PM EDTAssociated Problem(s): Diabetic polyneuropathy associated with type 2 diabetes mellitus (HCC) - [employer] lyrica * Igor Lynn MD - 10/20/2024 12:10 PM EDTAssociated Problem(s): DNR (do not resuscitate) - orders in place * Igor Lynn MD - 10/20/2024 12:10 PM EDTAssociated Problem(s): Tobacco abuse Smokes 2ppd per family - declines NRT * Igor Lynn MD - 10/20/2024 12:08 PM EDT PROGRESS NOTE Assessment/Plan: Assessment & Plan Cellulitis and abscess of foot, except toes 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 2 diabetes mellitus, 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 necrosis (HCC) Diabetic leg ulcer (HCC) WBC wnl at admit. ESR wnl. CRP 28.69 at admit. XR bilteral tib fib with no acute findings. XR bilateral feet with small amt of subcutaneous gas in dorsum of R foot, no acute bony findings - podiatry consulted - s/p I&D R dorsal foot abscess and ulcer; I&D R anterior ankle diabetic ulcer and abscess 10/14 - wound culture 10/14 growing MSSA - BCx x2 10/12 NGTD - arterial studies 10/14 with severe diffuse arterial disease throughout RLE, mod LLE arterial disease - closure pending vascular intervention - continue keflex, doxy PAD (peripheral artery disease) SP left common iliac artery stent 08/23 - vascular consulted - [employer] ASA, lipitor, pletal - arterial studies as above Minor neurocognitive disorder Poor short term memory, insight, judgement. Does not recall having wound on his foot, having surgery. Not appropriate to be making medical decisions independently. - will need to contact family for decision making - discussed with Mr. Lanza's son Lopez today - discussed with podiatry, vascular Hyperkalemia (Resolved: 10/20/2024) K 5.4 at admit. - continue to monitor Essential hypertension Remains controlled - continue [employer] norvasc, imdur, lisinopril, metoprolol - monitor and adjust as needed Diabetes mellitus type 2 in nonobese (HCC) Last A1c 10.2 in 07/2023. [employer] meds include lantus 10 U qhs, metformin. Trending better - FSBS 4 times daily, high dose correctional algorithm - hold home metformin - lantus 40 U qhs - novolog 3 U TID with meals - rpt A1c 7.9 - 75 g carb diet Malignant neoplasm of urinary bladder (HCC) Was lost to follow-up but reestablished with urology-underwent cystoscopy-TURB 09/01 pathology consistent with bladder cancer - outpatient follow up CAD in unga artery - [employer] ASA, lipitor, imdur - cardiac monitoring Major depressive disorder, single episode, severe (HCC) Not on meds [employer] Diabetic polyneuropathy associated with type 2 diabetes mellitus (HCC) - [employer] lyrica DNR (do not resuscitate) - orders in place Tobacco abuse Smokes 2ppd per family - declines NRT Dispo: Continue current level of care Pending closure with podiatry VTE Prophylaxis: Qualifying Pharmacologic Prophylaxis enoxaparin (LOVENOX) injection 40 mg DAILY - LMWH/Xa Active Hospital Problems Diagnosis *Cellulitis and abscess of foot, except toes Minor neurocognitive disorder Tobacco abuse Hyperkalemia DNR (do not resuscitate) 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 2 diabetes mellitus, 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 necrosis (HCC) Diabetic leg ulcer (HCC) Diabetic foot infection (HCC) Malignant neoplasm of urinary bladder (HCC) Diabetic polyneuropathy associated with type 2 diabetes mellitus (HCC) Major depressive disorder, single episode, severe (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 Lanza is resting comfortably. No overnight events. Has continued pain. Worse in his L foot. Objective: BP 133/63 (BP Location: Right arm, Patient Position: Sitting) Pulse (!) 48 Temp 98.3 ??F (36.8 ??C) (Oral) Resp 16 Ht 6' (1.829 m) Wt 213 lb 8 oz (96.8 kg) SpO2 96% BMI 28.96 kg/m?? I/O last 3 completed shifts: In: 1440 [P.O.:1440] Out: - Weight: 213 lb 8 oz (96.8 kg) Constitutional: Alert and oriented to person, place, and time. No distress. obese Cardiovascular: Normal rate and regular rhythm. Pulmonary/Chest: Effort normal. No respiratory distress. Musculoskeletal: No edema. Neurological: Grossly normal. Skin: Skin is warm and dry. Dressing over R foot. Labs: Laboratory data and diagnostic testing reviewed 10/20/24. Igor Lynn MD 10/20/2024 12:08 PM * Robert Moyer, MARKETING ANALYTICS ANALYST - 10/19/2024 7:58 PM EDT Images from the original note were not included. Name: Lopez Aquino Date of Admission: 10/12/2024 Admitting Diagnosis: Cellulitis and abscess of foot, except toes ASSESSMENT/PLAN: S/p incision and drainage/debridement right foot and leg POD #5 Cellulitis and abscess of foot, except toes Diabetes mellitus, type II Diabetes mellitus, type II with peripheral neuropathy Peripheral arterial disease Amputation of toe of left foot Diabetic foot infection Diabetic leg ulcer with necrosis of muscle Diabetic ulcer of the right midfoot associated with type 2 diabetes mellitus with necrosis of muscle - dressing changed - elevate when able at all times - continue antibiotics - tight glycemic control - encouraged increased protein intake for wound healing - Await vascular intervention - Dr. Berger discussed inpatient and outpatient management of right lower extremity wounds Seen with Dr. Berger SUBJECTIVE: Patient seen at bedside in [facility] in follow up for right foot and leg infection. S/p incision and drainage/debridement right foot and leg POD #55. Denies any pain. Dressing clean and dry. No other complaints. OBJECTIVE: PHYSICAL EXAM: Vital Signs: BP 145/68 (BP Location: Right arm, Patient Position: Sitting) Pulse 59 Temp 97.9 ??F (36.6 ??C) (Oral) Resp 18 Ht 6' (1.829 m) Wt 213 lb 8 oz (96.8 kg) SpO2 93% BMI 28.96 kg/m?? General: Lopez appears in no acute distress LE: Right anterior reynolds - wound base and skin edges are viable, no malodor, minimal drainage, no expressible purulence, no calor. Right dorsal foot - wound base and skin edges are viable, no malodor,minimal drainage, no expressible purulence, no calor. Distal toe ivelisse - stable eschars, no malodor, no expressible purulence, minimal drainage Patient verbally consented permission allowing today's photographs - using the [employer] ([employer] melissa. Laboratory Lab Results Component Value Date CULTURE No anaerobic growth at 5 days. 10/14/2024 CULTURE Positive Growth (A) 10/14/2024 CULTURE Sparse growth of Staphylococcus aureus 10/14/2024 CULTURE No growth of fungus at 5 days. 10/14/2024 LABGRAM Few WBCs 10/14/2024 LABGRAM No organisms seen 10/14/2024 Radiology No Podiatric imaging obtained in the last 24 hours. Podiatry Disposition Perspective - Medically Ready for Discharge: No Anticipated discharge timeframe?: Unknown Discharge if / when?: Angiogram is performed and plan for wound management Robert Moyer APRN 10/19/2024 7:58 PM Cosigned by Ahsan Berger DPM at 10/19/2024 9:02 PM EDT Associated attestation - Ahsan Berger DPM - 10/19/2024 9:02 PM EDT I have reviewed the chief complaint and history of present illness for this patient. I have examined this patient, and participated in the care of this patient. I have reviewed the pertinent clinicalinformation including physical exam, labs, radiographic studies and the impression and plan, and I agree with the assessment and plan as documented. This patient was seen in coordination with the physician assistant chief of police/nurse practitioner. Patient status post I&D of the foot and ankle of the right lower extremity DOS: 10/14. Infectionappears to have been resolved however patient's underlying PAD remains. Vascular is on board, recommending angiogram. Patient continues to wax and wane over his decision making. After discussing withhim today the need for blood flow to heal his wounds, he is now wanting to have an angiogram done. This was relayed on to patient RN. Nonpalpable pulses to the right lower extremity, however it remains warm. No acute ischemia or necrosis. Sensation diminished. Open surgical wounds to the right ankle and foot. No erythema or active purulent drainage. Deep structures/tendons are exposed. Encourage patient undergo angiogram with vascular. Continue local wound care, Xeroform, DSD with gentle compression. Patient will need additional surgical intervention from our standpoint once optimized. Will follow. Ahsan Berger, CRESCENCIO, FACFAS 10/19/2024 9:01 PM * Valarie Kemp MSW - 10/19/2024 1:05 PM EDT 10/19/24 1304 Ongoing Discharge Planning Evaluation Actual Discharge Plan 10/19/2024 SW UPDATE: Chart reviewed. Note pt is alert and oriented x3. Per discussion in morning MDM, pt still not medically ready for D/C. D/c plan remains for pt to return home with sons at D/C. Anticipate one of pt's sons will transport at D/C. Pt does not report any D/C needs or preferences at this time. RN/MD aware. SW FOLLOWING. * Igor Lynn MD - 10/19/2024 12:11 PM EDTAssociated Problem(s): Minor neurocognitive disorder Poor short term memory, insight, judgement. Does not recall having wound on his foot, having surgery. Not appropriate to be making medical decisions independently. - will need to contact family for decision making - discussed with Mr. Lanza's son Lopez today - discussed with podiatry, vascular * Igor Lynn MD - 10/19/2024 12:11 PM EDTAssociated Problem(s): Tobacco abuse Smokes 2ppd per family - declines NRT * Igor Lynn MD - 10/19/2024 11:56 AM EDTAssociated Problem(s): Cellulitis and abscess of foot, except toes WBC wnl at admit. ESR wnl. CRP 28.69 at admit. XR bilteral tib fib with no acute findings. XR bilateral feet with small amt of subcutaneous gas in dorsum of R foot, no acute bony findings - podiatry consulted - s/p I&D R dorsal foot abscess and ulcer; I&D R anterior ankle diabetic ulcer and abscess 10/14 - wound culture 10/14 growing MSSA - BCx x2 10/12 NGTD - arterial studies 10/14 with severe diffuse arterial disease throughout RLE, mod LLE arterial disease - plans for angiogram Tuesday? - NPO at midnight tuesday - closure pending vascular intervention - continue keflex, doxy * Igor Lynn MD - 10/19/2024 11:56 AM EDTAssociated Problem(s): 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 2 diabetes mellitus, with necrosis of muscle (HCC) WBC wnl at admit. ESR wnl. CRP 28.69 at admit. XR bilteral tib fib with no acute findings. XR bilateral feet with small amt of subcutaneous gas in dorsum of R foot, no acute bony findings - podiatry consulted - s/p I&D R dorsal foot abscess and ulcer; I&D R anterior ankle diabetic ulcer and abscess 10/14 - wound culture 10/14 growing MSSA - BCx x2 10/12 NGTD - arterial studies 10/14 with severe diffuse arterial disease throughout RLE, mod LLE arterial disease - plans for angiogram Tuesday? - NPO at midnight tuesday - closure pending vascular intervention - continue keflex, doxy * Igor Lynn MD - 10/19/2024 11:56 AM EDTAssociated Problem(s): Diabetic leg ulcer (HCC) WBC wnl at admit. ESR wnl. CRP 28.69 at admit. XR bilteral tib fib with no acute findings. XR bilateral feet with small amt of subcutaneous gas in dorsum of R foot, no acute bony findings - podiatry consulted - s/p I&D R dorsal foot abscess and ulcer; I&D R anterior ankle diabetic ulcer and abscess 10/14 - wound culture 10/14 growing MSSA - BCx x2 10/12 NGTD - arterial studies 10/14 with severe diffuse arterial disease throughout RLE, mod LLE arterial disease - plans for angiogram Tuesday? - NPO at midnight tuesday - closure pending vascular intervention - continue keflex, doxy * Elvis Morgan MD - 10/19/2024 10:44 AM EDT Images from the original note were not included. Patient Name:Lopez Aquino : 1945 Admitting Diagnosis: Cellulitis and abscess of foot, except toes INTERVAL HISTORY Patient seen this AM. No acute distress. Reports he wants to go home. MEDICAL HISTORY Scheduled Medications: amLODIPine 5 mg Oral BID atorvastatin 40 mg Oral Nightly cephALEXin 500 mg Oral 4 times per day doxycycline hyclate 100 mg Oral 2 times per day enoxaparin 40 mg Subcutaneous Daily - LMWH/Xa insulin aspart U-100 1-15 Units Subcutaneous QID WM insulin aspart (NovoLOG) Nutritional (prandial) insulin (Orderable) 3 Units Subcutaneous TID WM insulin glargine U-100 40 Units Subcutaneous QPM (Insulin) isosorbide mononitrate 30 mg Oral Nightly lisinopriL 20 mg Oral Daily metoprolol 50 mg Oral BID miconazole Topical BID morphine 45 mg Oral 2 times per day pregabalin 300 mg Oral BID sodium chloride 0.9% Intravenous 2 times per day Allergy: No Known Allergies Last Recorded Vital Signs: Temp: 97.9 ??F (36.6 ??C) Pulse: 50 BP: 126/58 Resp: 16 SpO2: 93 % Intake/Output Summary (Last 24 hours) at 10/19/2024 1044 Last data filed at 10/19/2024 0257 Gross per 24 hour Intake 240 ml Output 150 ml Net 90 ml LABS AND RADIOLOGY Pertinent Labs: CBC:No results for input(s): WBC , HGB , HCT , MCV , PLT in the last 72 hours. BMP: Recent Labs 10/18/24 0718 NA 136 K 3.8 CL 105 CO2 22 BUN 23 CREATININE 0.67 CALCIUM 8.7* GLU 209* Coagulation: No results for input(s): APTT , PROTIME , INR in the last 72 hours. Imaging:No results found. PHYSICAL EXAMINATION Physical Exam: General: No acute distress. Resting in bed. Head: NC/AT. Resp: Effort normal. Abdomen: soft Extremities: BLE edema present Vascular: RLE with dressing in place. Psych: Mood appropriate. 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 -Will sign off, reach out if patient becomes agreeable Signed: Savanna Box APRN Vascular Surgery 10/19/2024 10:44 AM Physician Documentation: I independently evaluated the patient, performed a physical examination, and review of the history,labs and medications. I reviewed the findings of the physician assistant chief of police/nurse practitioner and discussed the case in detail. Below is a summary of my pertinent independent evaluation and findings inaddition to the assessment and plan formulated by the physician assistant chief of police/nurse practitioner. Patient seen and examined. No new issues. R LE ulceration unchanged. Patient continue to refuse angiogram. Family reports possible dementia. Will hold off on angiogram for now. If wound not heal willrevisit the issue. Continue Hep gtt. ELVIS MORGAN MD, FACS This note was completed using voice recognition technology. Despite the video game script writer's best efforts to proof read, it may still contain unintended errors. Please call with questions. * Igor Lynn MD - 10/19/2024 10:07 AM EDTAssociated Problem(s): PAD (peripheral artery disease) SP left common iliac artery stent 08/23 - vascular consulted - angiogram Tuesday as above - [employer] ASA, lipitor, pletal - arterial studies as above * Igor Lynn MD - 10/19/2024 10:07 AM EDTAssociated Problem(s): Hyperkalemia (Resolved 10/20/2024) K 5.4 at admit. resolved - continue to monitor * Igor Lynn MD - 10/19/2024 10:07 AM EDTAssociated Problem(s): Essential hypertension Remains controlled - continue [employer] norvasc, imdur, lisinopril, metoprolol - monitor and adjust as needed * Igor Lynn MD - 10/19/2024 10:07 AM EDTAssociated Problem(s): Diabetes mellitus type 2 in nonobese (HCC) Last A1c 10.2 in 07/2023. [employer] meds include lantus 10 U qhs, metformin. Improved so far this am - FSBS 4 times daily, high dose correctional algorithm - hold home metformin - lantus 40 U qhs - novolog 3 U TID with meals - rpt A1c 7.9 - 75 g carb diet * Igor Lynn MD - 10/19/2024 10:07 AM EDTAssociated Problem(s): Malignant neoplasm of urinary bladder (HCC) Was lost to follow-up but reestablished with urology-underwent cystoscopy-[facility] 09/01 pathology consistent with bladder cancer - outpatient follow up * Igor Lynn MD - 10/19/2024 10:07 AM EDTAssociated Problem(s): CAD in unga artery - [employer] ASA, lipitor, imdur - cardiac monitoring * Igor Lynn MD - 10/19/2024 10:07 AM EDTAssociated Problem(s): Major depressive disorder, single episode, severe (HCC) Not on meds [employer] * Igor Lynn MD - 10/19/2024 10:07 AM EDTAssociated Problem(s): Diabetic polyneuropathy associated with type 2 diabetes mellitus (HCC) - [employer] lyrica * Igor Lynn MD - 10/19/2024 10:07 AM EDTAssociated Problem(s): DNR (do not resuscitate) - orders in place * Igor Lynn MD - 10/19/2024 10:05 AM EDT PROGRESS NOTE Assessment/Plan: Assessment & Plan Cellulitis and abscess of foot, except toes 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 2 diabetes mellitus, 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 necrosis (HCC) Diabetic leg ulcer (HCC) WBC wnl at admit. ESR wnl. CRP 28.69 at admit. XR bilteral tib fib with no acute findings. XR bilateral feet with small amt of subcutaneous gas in dorsum of R foot, no acute bony findings - podiatry consulted - s/p I&D R dorsal foot abscess and ulcer; I&D R anterior ankle diabetic ulcer and abscess 10/14 - wound culture 10/14 growing MSSA - BCx x2 10/12 NGTD - arterial studies 10/14 with severe diffuse arterial disease throughout RLE, mod LLE arterial disease - plans for angiogram Tuesday? - NPO at midnight tuesday - closure pending vascular intervention - continue keflex, doxy PAD (peripheral artery disease) SP left common iliac artery stent 08/23 - vascular consulted - angiogram Tuesday as above - [employer] ASA, lipitor, pletal - arterial studies as above Minor neurocognitive disorder Poor short term memory, insight, judgement. Does not recall having wound on his foot, having surgery. Not appropriate to be making medical decisions independently. - will need to contact family for decision making - discussed with Mr. Lanza's son Lopez today - discussed with podiatry, vascular Hyperkalemia K 5.4 at admit. resolved - continue to monitor Essential hypertension Remains controlled - continue [employer] norvasc, imdur, lisinopril, metoprolol - monitor and adjust as needed Diabetes mellitus type 2 in nonobese (HCC) Last A1c 10.2 in 07/2023. [employer] meds include lantus 10 U qhs, metformin. Improved so far this am - FSBS 4 times daily, high dose correctional algorithm - hold home metformin - lantus 40 U qhs - novolog 3 U TID with meals - rpt A1c 7.9 - 75 g carb diet Malignant neoplasm of urinary bladder (HCC) Was lost to follow-up but reestablished with urology-underwent cystoscopy-[facility] 09/01 pathology consistent with bladder cancer - outpatient follow up CAD in unga artery - [employer] ASA, lipitor, imdur - cardiac monitoring Major depressive disorder, single episode, severe (HCC) Not on meds [employer] Diabetic polyneuropathy associated with type 2 diabetes mellitus (HCC) - [employer] lyrica DNR (do not resuscitate) - orders in place Tobacco abuse Smokes 2ppd per family - declines NRT Dispo: Continue current level of care ? angiogram VTE Prophylaxis: Qualifying Pharmacologic Prophylaxis enoxaparin (LOVENOX) injection 40 mg DAILY - LMWH/Xa Active [facility] Problems Diagnosis *Cellulitis and abscess of foot, except toes Hyperkalemia DNR (do not resuscitate) 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 2 diabetes mellitus, 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 necrosis (HCC) Diabetic leg ulcer (HCC) Diabetic foot infection (HCC) Malignant neoplasm of urinary bladder (HCC) Diabetic polyneuropathy associated with type 2 diabetes mellitus (HCC) Major depressive disorder, single episode, severe (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 Lanza remembers speaking to me yesterday, but not what we spoke about. Does not remember seeingDr. Eddie this am. When asked about the wound on his foot, he is not aware he has one. Does not remember going to [place] this am. Reports having foot pain. States he just wants to go home. Objective: BP 104/86 (BP Location: Right arm, Patient Position: Semi Fowlers) Pulse 56 Temp 98.5 ??F (36.9??C) (Oral) Resp 16 Ht 6' (1.829 m) Wt 213 lb 8 oz (96.8 kg) SpO2 94% BMI 28.96 kg/m?? I/O last 3 completed shifts: In: 480 [P.O.:480] Out: 150 [Urine:150] Weight: 213 lb 8 oz (96.8 kg) Constitutional: Alert and oriented to person, place, and time. No distress. Cardiovascular: Normal rate and regular rhythm. Pulmonary/Chest: Effort normal. No respiratory distress. There are no wheezes. Musculoskeletal: No edema. Neurological: Grossly normal. Skin: Skin is warm and dry. Labs: Laboratory data and diagnostic testing reviewed 10/19/24. Igor Lynn MD 10/19/2024 10:05 AM * Igor Lynn MD - 10/18/2024 4:43 PM EDTAssociated Problem(s): Cellulitis and abscess of foot, except toes WBC wnl at admit. ESR wnl. CRP 28.69 at admit. XR bilteral tib fib with no acute findings. XR bilateral feet with small amt of subcutaneous gas in dorsum of R foot, no acute bony findings - podiatry consulted - s/p I&D R dorsal foot abscess and ulcer; I&D R anterior ankle diabetic ulcer and abscess 10/14 - wound culture 10/14 growing MSSA - BCx x2 10/12 NGTD - arterial studies 10/14 with severe diffuse arterial disease throughout RLE, mod LLE arterial disease - declines angiogram - discussed with patient, podiatry and vascular - now agreeable - plans for angiogram Tuesday - NPO at midnight tuesday - closure pending vascular intervention - continue keflex, doxy * Igor Lynn MD - 10/18/2024 4:43 PM EDTAssociated Problem(s): 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 2 diabetes mellitus, with necrosis of muscle (HCC) WBC wnl at admit. ESR wnl. CRP 28.69 at admit. XR bilteral tib fib with no acute findings. XR bilateral feet with small amt of subcutaneous gas in dorsum of R foot, no acute bony findings - podiatry consulted - s/p I&D R dorsal foot abscess and ulcer; I&D R anterior ankle diabetic ulcer and abscess 10/14 - wound culture 10/14 growing MSSA - BCx x2 10/12 NGTD - arterial studies 10/14 with severe diffuse arterial disease throughout RLE, mod LLE arterial disease - declines angiogram - discussed with patient, podiatry and vascular - now agreeable - plans for angiogram Tuesday - NPO at midnight tuesday - closure pending vascular intervention - continue keflex, doxy * Igor Lynn MD - 10/18/2024 4:43 PM EDTAssociated Problem(s): Diabetic leg ulcer (HCC) WBC wnl at admit. ESR wnl. CRP 28.69 at admit. XR bilteral tib fib with no acute findings. XR bilateral feet with small amt of subcutaneous gas in dorsum of R foot, no acute bony findings - podiatry consulted - s/p I&D R dorsal foot abscess and ulcer; I&D R anterior ankle diabetic ulcer and abscess 10/14 - wound culture 10/14 growing MSSA - BCx x2 10/12 NGTD - arterial studies 10/14 with severe diffuse arterial disease throughout RLE, mod LLE arterial disease - declines angiogram - discussed with patient, podiatry and vascular - now agreeable - plans for angiogram Tuesday - NPO at midnight tuesday - closure pending vascular intervention - continue keflex, doxy * Igor Lynn MD - 10/18/2024 4:43 PM EDTAssociated Problem(s): PAD (peripheral artery disease) SP left common iliac artery stent 08/23 - vascular consulted - angiogram Tuesday as above - [employer] ASA, lipitor, pletal - arterial studies as above * Igor Lynn MD - 10/18/2024 3:48 PM EDTAssociated Problem(s): Hyperkalemia (Resolved 10/20/2024) K 5.4 at admit. resolved - continue to monitor * Igor Lynn MD - 10/18/2024 3:48 PM EDTAssociated Problem(s): Essential hypertension Remains controlled - continue [employer] norvasc, imdur, lisinopril, metoprolol - monitor and adjust as needed * Igor Lynn MD - 10/18/2024 3:48 PM EDTAssociated Problem(s): Diabetes mellitus type 2 in nonobese (HCC) Last A1c 10.2 in 07/2023. [employer] meds include lantus 10 U qhs, metformin. Continues to run high - FSBS 4 times daily, high dose correctional algorithm - hold home metformin - lantus 35 U qhs - increase to 40 - add novolog 3 U TID with meals - rpt A1c 7.9 - 75 g carb diet * Igor Lynn MD - 10/18/2024 3:48 PM EDTAssociated Problem(s): Malignant neoplasm of urinary bladder (HCC) Was lost to follow-up but reestablished with urology-underwent cystoscopy-[facility] 09/01 pathology consistent with bladder cancer - outpatient follow up * Igor Lynn MD - 10/18/2024 3:48 PM EDTAssociated Problem(s): CAD in unga artery - [employer] ASA, lipitor, imdur - cardiac monitoring * Igor Lynn MD - 10/18/2024 3:48 PM EDTAssociated Problem(s): Major depressive disorder, single episode, severe (HCC) Not on meds [employer] * Igor Lynn MD - 10/18/2024 3:48 PM EDTAssociated Problem(s): Diabetic polyneuropathy associated with type 2 diabetes mellitus (HCC) - [employer] lyrica * Igor Lynn MD - 10/18/2024 3:48 PM EDTAssociated Problem(s): DNR (do not resuscitate) - orders in place * Igor Lynn MD - 10/18/2024 3:42 PM EDT PROGRESS NOTE Assessment/Plan: Assessment & Plan Cellulitis and abscess of foot, except toes 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 2 diabetes mellitus, 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 necrosis (HCC) Diabetic leg ulcer (HCC) WBC wnl at admit. ESR wnl. CRP 28.69 at admit. XR bilteral tib fib with no acute findings. XR bilateral feet with small amt of subcutaneous gas in dorsum of R foot, no acute bony findings - podiatry consulted - s/p I&D R dorsal foot abscess and ulcer; I&D R anterior ankle diabetic ulcer and abscess 10/14 - wound culture 10/14 growing MSSA - BCx x2 10/12 NGTD - arterial studies 10/14 with severe diffuse arterial disease throughout RLE, mod LLE arterial disease - declines angiogram - discussed with patient, podiatry and vascular - now agreeable - plans for angiogram Tuesday - NPO at midnight tuesday - closure pending vascular intervention - continue keflex, doxy PAD (peripheral artery disease) SP left common iliac artery stent 08/23 - vascular consulted - angiogram Tuesday as above - [employer] ASA, lipitor, pletal - arterial studies as above Hyperkalemia K 5.4 at admit. resolved - continue to monitor Essential hypertension Remains controlled - continue [employer] norvasc, imdur, lisinopril, metoprolol - monitor and adjust as needed Diabetes mellitus type 2 in nonobese (HCC) Last A1c 10.2 in 07/2023. [employer] meds include lantus 10 U qhs, metformin. Continues to run high - FSBS 4 times daily, high dose correctional algorithm - hold home metformin - lantus 35 U qhs - increase to 40 - add novolog 3 U TID with meals - rpt A1c 7.9 - 75 g carb diet Malignant neoplasm of urinary bladder (HCC) Was lost to follow-up but reestablished with urology-underwent cystoscopy-[facility] 09/01 pathology consistent with bladder cancer - outpatient follow up CAD in unga artery - [employer] ASA, lipitor, imdur - cardiac monitoring Major depressive disorder, single episode, severe (HCC) Not on meds [employer] Diabetic polyneuropathy associated with type 2 diabetes mellitus (HCC) - [employer] lyrica DNR (do not resuscitate) - orders in place Dispo: Awaiting podiatry plans VTE Prophylaxis: Qualifying Pharmacologic Prophylaxis enoxaparin (LOVENOX) injection 40 mg DAILY - LMWH/Xa Active [facility] Problems Diagnosis *Cellulitis and abscess of foot, except toes Hyperkalemia DNR (do not resuscitate) 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 2 diabetes mellitus, 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 necrosis (HCC) Diabetic leg ulcer (HCC) Diabetic foot infection (HCC) Malignant neoplasm of urinary bladder (HCC) Diabetic polyneuropathy associated with type 2 diabetes mellitus (HCC) Major depressive disorder, single episode, severe (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 Lanza is up in his chair. He does not remember speaking to vascular. Does remember saying he doesn't want the angiogram. Discussed that his foot is unlikely to heal without vascular intervention.After further discussion, he is open to it. Objective: BP 123/58 Pulse 60 Temp 98.3 ??F (36.8 ??C) (Oral) Resp 18 Ht 6' (1.829 m) Wt 213 lb 8 oz(96.8 kg) SpO2 94% BMI 28.96 kg/m?? I/O last 3 completed shifts: In: 960 [P.O.:960] Out: - Weight: 213 lb 8 oz (96.8 kg) Constitutional: Alert and oriented to person, place, and time. No distress. Cardiovascular: Normal rate and regular rhythm. Pulmonary/Chest: Effort normal. No respiratory distress. There are no wheezes. Musculoskeletal: No edema. Neurological: Grossly normal. Skin: Skin is warm and dry. Dressing over RLE Labs: Laboratory data and diagnostic testing reviewed 10/18/24. Igor Lynn MD 10/18/2024 3:42 PM * Igor Lynn MD - 10/17/2024 12:11 PM EDTAssociated Problem(s): Cellulitis and abscess of foot, except toes WBC wnl at admit. ESR wnl. CRP 28.69 at admit. XR bilteral tib fib with no acute findings. XR bilateral feet with small amt of subcutaneous gas in dorsum of R foot, no acute bony findings - podiatry consulted - s/p I&D R dorsal foot abscess and ulcer; I&D R anterior ankle diabetic ulcer and abscess 10/14 - wound culture 10/14 growing MSSA - BCx x2 10/12 NGTD - plans for closure pending vascular studies - arterial studies 10/14 with severe diffuse arterial disease throughout RLE, mod LLE arterial disease - plans for closure per podiatry - stop vanc - deescalate to keflex, doxy * Igor Lynn MD - 10/17/2024 12:11 PM EDTAssociated Problem(s): 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 2 diabetes mellitus, with necrosis of muscle (HCC) WBC wnl at admit. ESR wnl. CRP 28.69 at admit. XR bilteral tib fib with no acute findings. XR bilateral feet with small amt of subcutaneous gas in dorsum of R foot, no acute bony findings - podiatry consulted - s/p I&D R dorsal foot abscess and ulcer; I&D R anterior ankle diabetic ulcer and abscess 10/14 - wound culture 10/14 growing MSSA - BCx x2 10/12 NGTD - plans for closure pending vascular studies - arterial studies 10/14 with severe diffuse arterial disease throughout RLE, mod LLE arterial disease - plans for closure per podiatry - stop vanc - deescalate to keflex, doxy * Igor Lynn MD - 10/17/2024 12:11 PM EDTAssociated Problem(s): Diabetic leg ulcer (HCC) WBC wnl at admit. ESR wnl. CRP 28.69 at admit. XR bilteral tib fib with no acute findings. XR bilateral feet with small amt of subcutaneous gas in dorsum of R foot, no acute bony findings - podiatry consulted - s/p I&D R dorsal foot abscess and ulcer; I&D R anterior ankle diabetic ulcer and abscess 10/14 - wound culture 10/14 growing MSSA - BCx x2 10/12 NGTD - plans for closure pending vascular studies - arterial studies 10/14 with severe diffuse arterial disease throughout RLE, mod LLE arterial disease - plans for closure per podiatry - stop vanc - deescalate to keflex, doxy * Igor Lynn MD - 10/17/2024 12:11 PM EDTAssociated Problem(s): PAD (peripheral artery disease) SP left common iliac artery stent 08/23 - [employer] ASA, lipitor, pletal - arterial studies as above * Igor Lynn MD - 10/17/2024 12:11 PM EDTAssociated Problem(s): Hyperkalemia (Resolved 10/20/2024) K 5.4 at admit. resolved - continue to monitor * Igor Lynn MD - 10/17/2024 12:11 PM EDTAssociated Problem(s): Essential hypertension Remains controlled - continue [employer] norvasc, imdur, lisinopril, metoprolol - monitor and adjust as needed * Igor Lynn MD - 10/17/2024 12:11 PM EDTAssociated Problem(s): Diabetes mellitus type 2 in nonobese (HCC) Last A1c 10.2 in 07/2023. [employer] meds include lantus 10 U qhs, metformin. Improved, but high - FSBS 4 times daily, high dose correctional algorithm - hold home metformin - lantus 30 U qhs - increase to 35 - rpt A1c 7.9 - 75 g carb diet * Igor Lynn MD - 10/17/2024 12:11 PM EDTAssociated Problem(s): Malignant neoplasm of urinary bladder (HCC) Was lost to follow-up but reestablished with urology-underwent cystoscopy-[facility] 09/01 pathology consistent with bladder cancer - outpatient follow up * Igor Lynn MD - 10/17/2024 12:11 PM EDTAssociated Problem(s): CAD in unga artery - [employer] ASA, lipitor, imdur - cardiac monitoring * Igor Lynn MD - 10/17/2024 12:11 PM EDTAssociated Problem(s): Major depressive disorder, single episode, severe (HCC) Not on meds [employer] * Igor Lynn MD - 10/17/2024 12:11 PM EDTAssociated Problem(s): Diabetic polyneuropathy associated with type 2 diabetes mellitus (HCC) - [employer] lyrica * Igor Lynn MD - 10/17/2024 12:11 PM EDTAssociated Problem(s): DNR (do not resuscitate) - orders in place * Igor Lynn MD - 10/17/2024 12:07 PM EDT PROGRESS NOTE Assessment/Plan: Assessment & Plan Cellulitis and abscess of foot, except toes 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 2 diabetes mellitus, 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 necrosis (HCC) Diabetic leg ulcer (HCC) WBC wnl at admit. ESR wnl. CRP 28.69 at admit. XR bilteral tib fib with no acute findings. XR bilateral feet with small amt of subcutaneous gas in dorsum of R foot, no acute bony findings - podiatry consulted - s/p I&D R dorsal foot abscess and ulcer; I&D R anterior ankle diabetic ulcer and abscess 10/14 - wound culture 10/14 growing MSSA - BCx x2 10/12 NGTD - plans for closure pending vascular studies - arterial studies 10/14 with severe diffuse arterial disease throughout RLE, mod LLE arterial disease - plans for closure per podiatry - stop vanc - deescalate to keflex, doxy PAD (peripheral artery disease) SP left common iliac artery stent 08/23 - [employer] ASA, lipitor, pletal - arterial studies as above Hyperkalemia K 5.4 at admit. resolved - continue to monitor Essential hypertension Remains controlled - continue [employer] norvasc, imdur, lisinopril, metoprolol - monitor and adjust as needed Diabetes mellitus type 2 in nonobese (HCC) Last A1c 10.2 in 07/2023. [employer] meds include lantus 10 U qhs, metformin. Improved, but high - FSBS 4 times daily, high dose correctional algorithm - hold home metformin - lantus 30 U qhs - increase to 35 - rpt A1c 7.9 - 75 g carb diet Malignant neoplasm of urinary bladder (HCC) Was lost to follow-up but reestablished with urology-underwent cystoscopy-[facility] 09/01 pathology consistent with bladder cancer - outpatient follow up CAD in unga artery - [employer] ASA, lipitor, imdur - cardiac monitoring Major depressive disorder, single episode, severe (HCC) Not on meds [employer] Diabetic polyneuropathy associated with type 2 diabetes mellitus (HCC) - [employer] lyrica DNR (do not resuscitate) - orders in place Dispo: Pending OR for closure VTE Prophylaxis: Qualifying Pharmacologic Prophylaxis enoxaparin (LOVENOX) injection 40 mg DAILY - LMWH/Xa Active [facility] Problems Diagnosis *Cellulitis and abscess of foot, except toes Hyperkalemia DNR (do not resuscitate) 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 2 diabetes mellitus, 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 necrosis (HCC) Diabetic leg ulcer (HCC) Diabetic foot infection (HCC) Malignant neoplasm of urinary bladder (HCC) Diabetic polyneuropathy associated with type 2 diabetes mellitus (HCC) Major depressive disorder, single episode, severe (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 Lanza is up in his chair, picking his false teeth with his knife. He denies any concerns. Wantsto go home. Objective: BP 118/63 (BP Location: Right arm, Patient Position: Sitting) Pulse 58 Temp 97.6 ??F (36.4 ??C)(Oral) Resp 18 Ht 6' (1.829 m) Wt 213 lb 8 oz (96.8 kg) SpO2 95% BMI 28.96 kg/m?? I/O last 3 completed shifts: In: 2991.9 [P.O.:1200; IV Piggyback:1791.9] Out: 850 [Urine:850] Weight: 213 lb 8 oz (96.8 kg) Constitutional: Alert and oriented to person, place, and time. No distress. Cardiovascular: Normal rate and regular rhythm. Pulmonary/Chest: Effort normal. No respiratory distress. Musculoskeletal: dressing over RLE clean, dry, intact. Neurological: Grossly normal. Skin: Skin is warm and dry. Labs: Laboratory data and diagnostic testing reviewed 10/17/24. Igor Lynn MD 10/17/2024 12:07 PM * Igor Lynn MD - 10/17/2024 12:07 PM EDTAssociated Problem(s): Essential hypertension Controlled overall - continue [employer] norvasc, imdur, lisinopril, metoprolol - monitor and adjust as needed * Igor Lynn MD - 10/17/2024 12:07 PM EDTAssociated Problem(s): PAD (peripheral artery disease) SP left common iliac artery stent 08/23 - [employer] ASA, lipitor, pletal - arterial studies pending * Igor Lynn MD - 10/17/2024 12:07 PM EDTAssociated Problem(s): Malignant neoplasm of urinary bladder (HCC) Was lost to follow-up but reestablished with urology-underwent cystoscopy-TURB 09/01 pathology consistent with bladder cancer - outpatient follow up * Igor Lynn MD - 10/17/2024 12:07 PM EDTAssociated Problem(s): Cellulitis and abscess of foot, except toes WBC wnl at admit. ESR wnl. CRP 28.69 at admit. XR bilteral tib fib with no acute findings. XR bilateral feet with small amt of subcutaneous gas in dorsum of R foot, no acute bony findings - podiatry consulted - s/p I&D R dorsal foot abscess and ulcer; I&D R anterior ankle diabetic ulcer and abscess 10/14 - wound culture 10/14 growing S aureus - BCx x2 10/12 NGTD - plans for closure pending vascular studies - vascular studies pending - continue vancomycin, cefepime, Flagyl * Igor Lynn MD - 10/17/2024 12:07 PM EDTAssociated Problem(s): 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 2 diabetes mellitus, with necrosis of muscle (HCC) WBC wnl at admit. ESR wnl. CRP 28.69 at admit. XR bilteral tib fib with no acute findings. XR bilateral feet with small amt of subcutaneous gas in dorsum of R foot, no acute bony findings - podiatry consulted - s/p I&D R dorsal foot abscess and ulcer; I&D R anterior ankle diabetic ulcer and abscess 10/14 - wound culture 10/14 growing S aureus - BCx x2 10/12 NGTD - plans for closure pending vascular studies - vascular studies pending - continue vancomycin, cefepime, Flagyl * Igor Lynn MD - 10/17/2024 12:07 PM EDTAssociated Problem(s): Diabetic leg ulcer (HCC) WBC wnl at admit. ESR wnl. CRP 28.69 at admit. XR bilteral tib fib with no acute findings. XR bilateral feet with small amt of subcutaneous gas in dorsum of R foot, no acute bony findings - podiatry consulted - s/p I&D R dorsal foot abscess and ulcer; I&D R anterior ankle diabetic ulcer and abscess 10/14 - wound culture 10/14 growing S aureus - BCx x2 10/12 NGTD - plans for closure pending vascular studies - vascular studies pending - continue vancomycin, cefepime, Flagyl * Igor Lynn MD - 10/17/2024 12:07 PM EDTAssociated Problem(s): CAD in unga artery - [employer] ASA, lipitor, imdur - cardiac monitoring * Igor Lynn MD - 10/17/2024 12:07 PM EDTAssociated Problem(s): Major depressive disorder, single episode, severe (HCC) Not on meds [employer] * Iogr Lynn MD - 10/17/2024 12:07 PM EDTAssociated Problem(s): Diabetic polyneuropathy associated with type 2 diabetes mellitus (HCC) - [employer] lyrica * Igor Lynn MD - 10/17/2024 12:07 PM EDTAssociated Problem(s): DNR (do not resuscitate) - orders in place * Igor Lynn MD - 10/17/2024 12:07 PM EDTAssociated Problem(s): Hyperkalemia (Resolved 10/20/2024) K 5.4 at admit. resolved - continue to monitor * Brennen Quiroz, PharmD - 10/17/2024 11:49 AM EDT Pharmacy Consult - Vancomycin S: Lopez Aquino is a(n) 79 y.o. male with diagnosis of bilateral cellulitis with an ulcer and skin breakdown on the right food and leg. Allergies: Patient has no known allergies. Day 6 of pharmacy managed Vancomycin therapy. Other antimicrobials at time of note include: Cefepime (10/12-p) IV Metronidazole (10/12-p) O: Most Recent Labs: Temp Min: 97.6 ??F (36.4 ??C) Max: 97.8 ??F (36.6 ??C) Recent Labs 10/13/24 0632 10/14/24 0539 10/15/24 0609 10/16/24 1347 10/17/24 0641 WBC 6.3 6.1 5.9 -- -- BUN 17 12 11 24* 27* CREATININE 0.75 0.57* 0.55* 0.68 0.77 Estimated Creatinine Clearance: 84 mL/min (by C-G formula based on SCr of 0.77 mg/dL). Recent Labs 10/12/24 1810 PROCLCTNIN 0.11 Recent Labs 10/12/24 2112 10/12/24 2248 10/13/24 0036 LACTA 2.6* 2.0* 1.6 Recent Labs 10/12/242111 CRP 28.69* I/O last 3 completed shifts: In: 2991.9 [P.O.:1200; IV Piggyback:1791.9] Out: 850 [Urine:850] I/O this shift: In: 128.9 [IV Piggyback:128.9] Out: - Height: 6' (182.9 cm) Weight: 213 lb 8 oz (96.8 kg) Culture & Sensitivities: Results for orders placed or performed during the hospital encounter of 10/12/24 (from the past 2 weeks) BLOOD CULTURE (NO STAIN) Collection Time: 10/12/24 6:10 PM Specimen: Blood, Venous Result Value Ref Range Culture Result No Growth at 96 hours. BLOOD CULTURE (NO STAIN) Collection Time: 10/12/24 6:10 PM Specimen: Blood, Venous Result Value Ref Range Culture Result No Growth at 96 hours. ANAEROBIC CULTURE (NO STAIN) Collection Time: 10/14/24 8:14 AM Specimen: Foot, Right; Swab Result Value Ref Range Culture No anaerobic growth to date. WOUND CULTURE (STAIN INCLUDED) Collection Time: 10/14/24 8:14 AM Specimen: Foot, Right; Swab Result Value Ref Range Culture Positive Growth (A) Culture Sparse growth of Staphylococcus aureus PBP2a test Negative Stain Few WBCs Stain No organisms seen Susceptibility Staphylococcus aureus - SUSCEPTIBILITY RESULT* Ampicillin Cefazolin Ceftaroline Ceftriaxone Chloramphenicol <=8 Susceptible ug/mL Ciprofloxacin <=1 Susceptible ug/mL Clindamycin <=0.25 Susceptible ug/mL Daptomycin Erythromycin <=0.25 Susceptible ug/mL Gentamicin <=1 Susceptible ug/mL Gentamicin synergy Levofloxacin <=0.5 Susceptible ug/mL Linezolid Moxifloxacin <=0.25 Susceptible ug/mL Nitrofurantoin Oxacillin <=0.25 Susceptible ug/mL Penicillin Rifampin <=1 Susceptible ug/mL Streptomycin synergy Synercid Tetracycline <=2 Susceptible ug/mL Tigecycline Trimethoprim/Sulfamethoxazole <=0.5/9.5 Susceptible ug/mL Vancomycin 0.5 Susceptible ug/mL * Rifampin and Gentamicin should not be used alone for antimicrobial therapy. For methicillin resistant staphylococci, ciprofloxacin should also not be used alone. A/P: BLE Cellulitis Physician orders and progress notes reviewed. Patient's renal function is stable. Culture data shows MSSA and as such, will de-escalate from Vancomycin at this time. Please re-consult Pharmacy if necessary. Thanks, Brennen Quiroz, PharmD * Elvis Morgan MD - 10/17/2024 11:06 AM EDT Images from the original note were not included. Patient Name:Lopez Aquino : 1945 Admitting Diagnosis: Cellulitis and abscess of foot, except toes INTERVAL HISTORY Patient seen and examined. Does not want to undergo angiogram for revascularization MEDICAL HISTORY Scheduled Medications: amLODIPine 5 mg Oral BID atorvastatin 40 mg Oral Nightly ceFEPIme (MAXIPIME) IVPB 1 g Intravenous 3 times per day enoxaparin 40 mg Subcutaneous Daily - LMWH/Xa insulin aspart U-100 1-15 Units Subcutaneous QID WM insulin glargine U-100 30 Units Subcutaneous QPM (Insulin) isosorbide mononitrate 30 mg Oral Nightly lisinopriL 20 mg Oral Daily metoprolol 50 mg Oral BID metroNIDAZOLE 500 mg Intravenous 3 times per day miconazole Topical BID morphine 45 mg Oral 2 times per day pregabalin 300 mg Oral BID sodium chloride 0.9% Intravenous 2 times per day Allergy: No Known Allergies Last Recorded Vital Signs: Temp: 97.6 ??F (36.4 ??C) Pulse: 58 BP: 118/63 Resp: 18 SpO2: 95 % Intake/Output Summary (Last 24 hours) at 10/17/2024 1107 Last data filed at 10/17/2024 0709 Gross per 24 hour Intake 2880.84 ml Output 650 ml Net 2230.84 ml LABS AND RADIOLOGY Pertinent Labs: CBC: Recent Labs 10/15/24 0609 WBC 5.9 HGB 14.5 HCT 43.6 MCV 86.7 PLT 172 BMP: Recent Labs 10/17/24 0641 NA 138 K 4.1 CL 102 CO2 24 BUN 27* CREATININE 0.77 CALCIUM 8.8 GLU 203* Coagulation: No results for input(s): APTT , PROTIME , INR in the last 72 hours. Imaging:No results found. PHYSICAL EXAMINATION Physical Exam: General: No acute distress. In wheelchair next to bed. RLE wrapped Rest of PE unchanged MEDICAL DECISION MAKING Active Hospital Problems Diagnosis *Cellulitis and abscess of foot, except toes DNR (do not resuscitate) 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 2 diabetes mellitus, 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 necrosis (HCC) Diabetic leg ulcer (HCC) Diabetic foot infection (HCC) Malignant neoplasm of urinary bladder (HCC) Diabetic polyneuropathy associated with type 2 diabetes mellitus (HCC) Major depressive disorder, single episode, severe (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 PAD (peripheral artery disease) Essential hypertension Diabetes mellitus type 2 in nonobese (HCC) CAD in unga artery Assessment: PAD with bilateral diabetic foot ulcers S/p I&D right foot abscess by Podiatry on 10/14 Hx L BRYON stenting on 08/24/2023 Hypertension CAD hx stents Diabetes mellitus Bladder cancer Chronic pain syndrome Plan: Angiogram recommended but patient does not wish to undergo procedure Asked again today because we had a slot reserved for him if he changed his mind. He declines Continue local wound care We will sign off but please reach out if patient is agreeable to angiogram Further input once seen by the vascular surgeon. Signed: BHANU Jama 10/17/2024 11:07 AM Physician Documentation: I independently evaluated the patient, performed a physical examination, and review of the history,labs and medications. I reviewed the findings of the physician assistant chief of police/nurse practitioner and discussed the case in detail. Below is a summary of my pertinent independent evaluation and findings inaddition to the assessment and plan formulated by the physician assistant chief of police/nurse practitioner. Patient seen and examined. No new issue. Still does not want to have angiogram. Continue local wound care. Hope this will heal. ELVIS MORGAN MD, FACS This note was completed using voice recognition technology. Despite the video game script writer's best efforts to proof read, it may still contain unintended errors. Please call with questions. * Elvis Morgan MD - 10/16/2024 9:28 PM EDT Please refer to consult dated 10/15/2024 Elvis Morgan MD * Robert Moyer, LISA - 10/16/2024 5:24 PM EDT Images from the original note were not included. Name: Lopez Aquino Date of Admission: 10/12/2024 Admitting Diagnosis: Cellulitis and abscess of foot, except toes ASSESSMENT/PLAN: S/p incision and drainage/debridement right foot and leg POD #2 Cellulitis and abscess of foot, except toes Diabetes mellitus, type II Diabetes mellitus, type II with peripheral neuropathy Peripheral arterial disease Amputation of toe of left foot Diabetic foot infection Diabetic leg ulcer with necrosis of muscle Diabetic ulcer of the right midfoot associated with type 2 diabetes mellitus with necrosis of muscle - dressing changed -packing placed into wounds - elevate when able at all times - continue antibiotics - tight glycemic control - encouraged increased protein intake for wound healing - Await vascular intervention -Anticipate closure once vascular surgery intervention is complete Discussed with Dr. Kruger SUBJECTIVE: Patient seen at bedside in [facility] in follow up for right foot and leg infection. S/p incision and drainage/debridement right foot and leg POD #2. Denies any pain. Dressing clean and dry. No other complaints. OBJECTIVE: PHYSICAL EXAM: Vital Signs: BP 122/59 (BP Location: Left arm, Patient Position: Semi Fowlers) Pulse 61 Temp 97.8 ??F (36.6 ??C) (Oral) Resp 18 Ht 6' (1.829 m) Wt 213 lb 8 oz (96.8 kg) SpO2 95% BMI 28.96 kg/m?? General: Lopez appears in no acute distress LE: Right anterior reynolds - wound base and skin edges are viable, no malodor, minimal drainage, no expressible purulence, no calor. Right dorsal foot - wound base and skin edges are viable, no malodor,minimal drainage, no expressible purulence, no calor. Distal toe ivelisse - stable eschars, no malodor, no expressible purulence, minimal drainage Patient verbally consented permission allowing today's photographs - using the [employer] melissa. Laboratory Lab Results Component Value Date CULTURE Culture in progress. 10/14/2024 CULTURE Positive Growth (A) 10/14/2024 CULTURE Sparse growth of Staphylococcus aureus 10/14/2024 LABGRAM Few WBCs 10/14/2024 LABGRAM No organisms seen 10/14/2024 Radiology No Podiatric imaging obtained in the last 24 hours. Podiatry Disposition Perspective - Medically Ready for Discharge: No Anticipated discharge timeframe?: unknown Discharge if / when?: when foot surgery is complete Robert Moyer APRN 10/16/2024 5:24 PM Cosigned by [employer] Kruger DPM at 10/28/2024 8:30 AM EDT Associated attestation - [employer] Kruger DPM - 10/28/2024 8:30 AM EDT The above note was reviewed and I am in agreement with exam findings, assessment, and treatment plan unless otherwise stated as addendum. Dr. Ash Kruger SEP Podiatric Surgery * Valarie Kemp, AUTOMOTIVE INTERNET SALES MANAGER - 10/16/2024 4:30 PM EDT 10/16/24 1626 Discharge Planning Evaluation Completed by CC/SW Yes Referral Source Chart review Does patient meet high risk triggers? Age over 80;Diagnosis of CHF/COPD/AMI/Pneumonia;Multiple acute diagnosis Is patient in a Bundle Payment initiative? N/A IP Mental Health Referral Pending No Observation Information Provided to Patient/Family N/A Who you interviewed In person interview with patient Mental Status Alert and oriented Decision Maker Patient Who does pt identify as their caregiver/support person who will be their active partner in the dc planning process Pt identified caregiver/support person for dc planning process Caregiver Name Lopez Lanza JRMaru Caregiver Does patient need aerial photograph interpreter? No Activities of Daily Living Prior to Admission Needs assistance with ADLS;Needs assistance with Homemaking;Needs assistance with mobility DME Used at Home Wheelchair Wheelchair type Power Patient's Living Arrangments Prior to Admission? Private Residence With Other(s) Private Residence With Other(s) Children Support Systems Children;Family Members;Friends/Neighbors;[place] [facility] Is PCP listed on facesheet correct? Yes Quality of Support System Good Identified psychosocial/financial issues Crisis situations and disability resulting from emotional,social and economic stresses of illness Follow Up Assigned To: Referral to Social work not necessary Social Work already completing dc planning assessment APS/CPS Report Made No Anticipated post-acute care needs Home with OP Follow Up Discussed discharge plans with Patient/Family/Caregiver/Support Person Yes, Discussed with patient Discussed discharge plans with Care Team at [facility] Yes, with nurse in attendance;Yes, with doctor in attendance Patient's goals for recovery Return to Prior Level of Functioning Actual Discharge Plan 10/16/2024 SW INITIAL ASSESSMENT: Chart reviewed. Note pt is alert and oriented x3. SW met with pt at bedside and introduced self and role. Pt needs some assistance with ADLS, homemaking, and mobility at D/C. Pt reports utilizing only power W/C at home. Pt reports that he lives with his sons in a private residence with no stairs. Pt denies any HH or home O2 needs prior to admission. PCP Dr Lazar. Pharmacy [place], [place]. Pt denies any financial or safety concerns at this time. Pt reports that he seldom drives anymore and usually his son, Madhu, transports him where he needs to go. Pt identifies his son, Lopez DIAMOND, as D/C planning support person. Pt reports no D/C needs or preferences at this time. SDOH screen complete. SW FOLLOWING. * Brennen Quiroz [facility] - 10/16/2024 3:46 PM EDT Pharmacy Consult - Vancomycin S: Lopez Lanza Sr. Miles is a(n) 79 y.o. male with diagnosis of bilateral cellulitis with an ulcer and skin breakdown on the right food and leg. Allergies: Patient has no known allergies. Day 5 of pharmacy managed Vancomycin therapy. Other antimicrobials include: Cefepime (10/12-p) IV Metronidazole (10/12-p) O: Most Recent Labs: Temp Min: 97.5 ??F (36.4 ??C) Max: 98.7 ??F (37.1 ??C) Recent Labs 10/13/24 0632 10/14/24 0539 10/15/24 0609 WBC 6.3 6.1 5.9 BUN 17 12 11 CREATININE 0.75 0.57* 0.55* Estimated Creatinine Clearance: 117.6 mL/min (A) (by C-G formula based on SCr of 0.55 mg/dL (L)). Recent Labs 10/15/24 0609 10/15/24 1240 10/16/24 0836 10/16/24 1347 VANCOAUC1 11.8 -- 32.2 -- VANCOAUC2 -- 9.4 -- 22.0 Recent Labs 10/12/24 1810 PROCLCTNIN 0.11 Recent Labs 10/12/24 2112 10/12/24 2248 10/13/24 0036 LACTA 2.6* 2.0* 1.6 Recent Labs 10/12/242111 CRP 28.69* I/O last 3 completed shifts: In: 1320 [P.O.:1320] Out: 825 [Urine:825] I/O this shift: In: 240 [P.O.:240] Out: 200 [Urine:200] Height: 6' (182.9 cm) Weight: 213 lb 8 oz (96.8 kg) Culture & Sensitivities: Results for orders placed or performed during the hospital encounter of 10/12/24 (from the past 2 weeks) BLOOD CULTURE (NO STAIN) Collection Time: 10/12/24 6:10 PM Specimen: Blood, Venous Result Value Ref Range Culture Result No Growth at 72 hours. BLOOD CULTURE (NO STAIN) Collection Time: 10/12/24 6:10 PM Specimen: Blood, Venous Result Value Ref Range Culture Result No Growth at 72 hours. ANAEROBIC CULTURE (NO STAIN) Collection Time: 10/14/24 8:14 AM Specimen: Foot, Right; Swab Result Value Ref Range Culture Culture in progress. WOUND CULTURE (STAIN INCLUDED) Collection Time: 10/14/24 8:14 AM Specimen: Foot, Right; Swab Result Value Ref Range Culture Positive Growth (A) Culture Sparse growth of Staphylococcus aureus PBP2a test Negative Stain Few WBCs Stain No organisms seen A/P: BLE Cellulitis Physician orders and progress notes reviewed. Patient's renal function is stable. Previous Vancomycin regimen was 1500mg (15.5 mg/kg) every 12 hours This dosing regimen was estimated to result in a predicted AUCss of 480 mg??hr/L; Goal AUC is 400-600. Patient's measured first concentration collected resulted as 32.2 mcg/mL (10/16 0836). Patient's measured second concentration collected resulted as 22.0 mcg/mL (10/16 1347). Prior dose was administered on 10/16/24 at 0444. Patient's calculated kinetic parameters based off these concentrations at approximately steady state: - Ke = 0.0735 hr^-1 - Half-life = 9.4 hr - Cmax = 36.94 mcg/mL - Cmin = 17.71 mcg/mL - AUCss = 633 mg??hr/L Will modify patient's Vancomycin therapy to 1750 mg (~18.1 mg/kg) every 18 hours. This new dosing regimen is estimated to result in: - Peakss = 35.05 mcg/mL - Troughss = 10.42 mcg/mL - AUCss = 492 mg??hr/L; goal AUC 400-600 Will evaluate levels for AUC dosing on 10/18/24 between the 3rd and 4th dose of this new regimen. Pharmacy will continue to follow patient for changes in relevant labs, renal function, efficacy, and signs of toxicity. Brennen Gale PharmD * Igor Lynn MD - 10/16/2024 2:45 PM EDTAssociated Problem(s): Diabetes mellitus type 2 in nonobese (HCC) Last A1c 10.2 in 07/2023. [employer] meds include lantus 10 U qhs, metformin. Running high overall - FSBS 4 times daily, high dose correctional algorithm - hold home metformin - lantus 20 U qhs - increase to 30 - rpt A1c 7.9 - 75 g carb diet * Igor Lynn MD - 10/16/2024 9:44 AM EDT PROGRESS NOTE Assessment/Plan: Assessment & Plan Cellulitis and abscess of foot, except toes 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 2 diabetes mellitus, 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 necrosis (HCC) Diabetic leg ulcer (HCC) WBC wnl at admit. ESR wnl. CRP 28.69 at admit. XR bilteral tib fib with no acute findings. XR bilateral feet with small amt of subcutaneous gas in dorsum of R foot, no acute bony findings - podiatry consulted - s/p I&D R dorsal foot abscess and ulcer; I&D R anterior ankle diabetic ulcer and abscess 10/14 - wound culture 10/14 growing S aureus - BCx x2 10/12 NGTD - plans for closure pending vascular studies - vascular studies pending - continue vancomycin, cefepime, Flagyl PAD (peripheral artery disease) SP left common iliac artery stent 08/23 - [employer] ASA, lipitor, pletal - arterial studies pending Hyperkalemia K 5.4 at admit. resolved - continue to monitor Essential hypertension Controlled overall - continue [employer] norvasc, imdur, lisinopril, metoprolol - monitor and adjust as needed Diabetes mellitus type 2 in nonobese (HCC) Last A1c 10.2 in 07/2023. [employer] meds include lantus 10 U qhs, metformin. Running high overall - FSBS 4 times daily, high dose correctional algorithm - hold home metformin - lantus 20 U qhs - increase to 30 - rpt A1c 7.9 - 75 g carb diet Malignant neoplasm of urinary bladder (HCC) Was lost to follow-up but reestablished with urology-underwent cystoscopy-TURB 09/01 pathology consistent with bladder cancer - outpatient follow up CAD in unga artery - [employer] ASA, lipitor, imdur - cardiac monitoring Major depressive disorder, single episode, severe (HCC) Not on meds [employer] Diabetic polyneuropathy associated with type 2 diabetes mellitus (HCC) - [employer] lyrica DNR (do not resuscitate) - orders in place Dispo: Continue current level of care Pending return to OR, PT/OT evals VTE Prophylaxis: Qualifying Pharmacologic Prophylaxis enoxaparin (LOVENOX) injection 40 mg DAILY - LMWH/Xa Active Hospital Problems Diagnosis *Diabetic foot infection (HCC) DNR (do not resuscitate) 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 2 diabetes mellitus, 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 necrosis (HCC) Diabetic leg ulcer (HCC) Malignant neoplasm of urinary bladder (HCC) Diabetic polyneuropathy associated with type 2 diabetes mellitus (HCC) Major depressive disorder, single episode, severe (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 Cellulitis and abscess of foot, except toes PAD (peripheral artery disease) Essential hypertension 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 Lanza is up sitting in his chair. His son is at bedside. Reports feeling okay. No pain. No overnight events. Objective: BP 135/53 (BP Location: Left arm, Patient Position: Lying right side) Pulse 52 Temp 98.1 ??F (36.7 ??C) (Forehead) Resp 16 Ht 6' (1.829 m) Wt 213 lb 8 oz (96.8 kg) SpO2 94% BMI 28.96 kg/m?? I/O last 3 completed shifts: In: 1320 [P.O.:1320] Out: 825 [Urine:825] Weight: 213 lb 8 oz (96.8 kg) Constitutional: Alert and oriented to person, place, and time. No distress. Cardiovascular: Normal rate and regular rhythm. Pulmonary/Chest: Effort normal. No respiratory distress. There are no wheezes. Musculoskeletal: No edema. Neurological: Grossly normal. Skin: Skin is warm and dry. Dressing over RLE clean, dry, intact. Labs: Laboratory data and diagnostic testing reviewed 10/16/24. Igor Lynn MD 10/16/2024 9:44 AM * Kelsy Colvin RN - 10/15/2024 3:27 PM EDT WOUND CARE: Consulted for area of concern to coccyx/buttocks. Upon assessment noted a pink patch ofskin to the left buttocks. Area is blanchable and very dry. I suspect discoloration is from bruising. I recommend continued use of prevention protocol. Will not actively follow at this time. Please reconsult for any new areas of concern. Thank you. * Brennen Quiroz [facility] - 10/15/2024 3:21 PM EDT Pharmacy Consult - Vancomycin S: Lopez Lanza Maru Aquino is a(n) 79 y.o. male with diagnosis of bilateral cellulitis with an ulcer and skin breakdown on the right food and leg. Allergies: Patient has no known allergies. Day 4 of pharmacy managed Vancomycin therapy. Other antimicrobials include: Cefepime (10/12-p) IV Metronidazole (10/12-p) O: Most Recent Labs: Temp Min: 98 ??F (36.7 ??C) Max: 98.6 ??F (37 ??C) Recent Labs 10/13/24 0632 10/14/24 0539 10/15/24 0609 WBC 6.3 6.1 5.9 BUN 17 12 11 CREATININE 0.75 0.57* 0.55* Estimated Creatinine Clearance: 117.6 mL/min (A) (by C-G formula based on SCr of 0.55 mg/dL (L)). Recent Labs 10/12/24 1810 PROCLCTNIN 0.11 Recent Labs 10/12/24 2112 10/12/24 2248 10/13/24 0036 LACTA 2.6* 2.0* 1.6 Recent Labs 10/12/24 211 CRP 28.69* I/O last 3 completed shifts: In: 1438.9 [P.O.:480; I.V.:103.2; IV Piggyback:855.6] Out: 3055 [Urine:3050; Blood:5] No intake/output data recorded. Height: 6' (182.9 cm) Weight: 213 lb 8 oz (96.8 kg) Culture & Sensitivities: Results for orders placed or performed during the hospital encounter of 10/12/24 (from the past 2 weeks) BLOOD CULTURE (NO STAIN) Collection Time: 10/12/24 6:10 PM Specimen: Blood, Venous Result Value Ref Range Culture Result No Growth at 48 hours. BLOOD CULTURE (NO STAIN) Collection Time: 10/12/24 6:10 PM Specimen: Blood, Venous Result Value Ref Range Culture Result No Growth at 48 hours. ANAEROBIC CULTURE (NO STAIN) Collection Time: 10/14/24 8:14 AM Specimen: Foot, Right; Swab Result Value Ref Range Culture Culture in progress. WOUND CULTURE (STAIN INCLUDED) Collection Time: 10/14/24 8:14 AM Specimen: Foot, Right; Swab Result Value Ref Range Culture Positive Growth (A) Culture Sparse growth of Staphylococcus aureus Stain Few WBCs Stain No organisms seen A/P: BLE Cellulitis Physician orders and progress notes reviewed. Renal function is stable for 2 days now, will update regimen. Vancomycin AUC levels collected as planned today, however, Vancomycin dose due this morning was never given as pt had swelling reaction due to unknown cause (multiple medications simultaneously running). opts to re-challenge this afternoon. Spoke with RN regarding plan. Will dose Vancomycin at 1500mg every 12 hours for predicted AUC of 480 with renal function improving. Will check AUC levels tomorrow after morning dose of Vancomycin. Pharmacy will continue to follow patient for changes in relevant labs, renal function, efficacy, and signs of toxicity. Thanks, Brennen Quiroz PharmD * Ahsan Parra Jr., MD - 10/15/2024 1:16 PM EDT Images from the original note were not included. PROGRESS NOTE Chief Complaint Patient presents with Wound Check Patient to triage with sores on feet that per son look infected. Patient diabetic 10/13 Brief HPI: admitted for worsening Rgt leg/foot skin infxn with ulcers Assessment/Plan: Today's Condition: GUARDED Diabetic foot infection (HCC) - 10/12 blood cx = NGTD x 48 hrs (last read by me on 10/15) - Vancomycin, Cefepime, Flagyl -Check ESR CRP = bland - Podiatry consult - 10/13 d/w Podiatry; cont wound care - 10/14 d/w Podiatry. PROCEDURE: Incision and drainage with debridement, right dorsal foot abscess and diabetic foot ulcer. Incision and drainage, right anterior ankle diabetic ulcer and abscess. Intra-op Wound cx = NGTD x 48 hrs (last read by me on 10/15) Anaerobic cx = NGTD x 48 hrs (last read by me on 10/15) - 10/15 stable; cont current care Patient is currently receiving treatment with vancomycin which requires monitoring by me for nephrotoxicity Lab Results Component Value Date CREATININE 0.55 (L) 10/15/2024 Coronary artery disease involving unga coronary artery of unga heart without angina pectoris - Stents - Resume GDMT - 10/15 stable Essential hypertension Amlodipine, Imdur, lisinopril, Lopressor - trend daily - 10/14 # up; incr LISINOPRIL; add prn HYDRALAZINE - 10/15 # better Diabetes mellitus type 2 in nonobese (HCC) HgBA1c Lab Results Lab Results Component Value Date HGBA1C 7.9 (H) 10/12/2024 - Hold MF - SSI, Lantus - 10/15 incr LANTUS to 20u and to high dose SSI. I reviewed daily BS# to prevent potential life threatening complications like hypoglycemia, DKA or hyperglycemic coma: Lab Results Component Value Date FSBS 301 (H) 10/15/2024 FSBS 215 (H) 10/14/2024 FSBS 263 (H) 10/14/2024 PAD (peripheral artery disease) SP left common iliac artery stent placement 08/23 - 10/14 Checking duplex = Evidence of severe diffuse arterial disease throughout the right lower extremity. Difficult to image and doppler making it difficult to determine stenosis/occlusions. Evidence of moderate left lower extremity arterial disease demonstrated. - 10/15 cons VSURG Malignant neoplasm of urinary bladder (HCC) Was lost to follow-up but reestablished with urology-underwent cystoscopy-TURB 09/01 pathology consistent with bladder cancer - Follow-up urology as outpt Chronic pain syndrome Resume morphine/oxycodone - 10/14 Pain mngmt by me includes po meds prn, plus IV Morphine PRN for breakthrough pain -> which requires 24/7 continuous monitoring of data for toxicity monitoring 2/2 to potential for respiratory suppression, altered mental status, dependence and addiction. ACP: THIS IS A CHANGE IN STATUS! 10/13 Patient voluntarily agrees to discuss ACP. LWill - NO. POA - NO. They and their family will work with an criminal defense attorney once out of hospital (at home - sooner than later)to generate/update these documents. These documents protect their quality of life, prevent their family from emotional stress/harm/guilt, and can prevent any arguments therein. We discussed the importance of these documents, including but not limited to : the importance of these documents to self and family, any previous experiences with EOL care and Living nguyen, exploration of personal and spiritual beliefs, goals of care, etc.. 16 minutes of time spent on discussion, education and counseling (b/c this decision was pertinent to their current medical diagnosis, and the associated risk therein) as well as documentation in their medical record. Code Status: DNR Dr Parra 10/13/24 Dispo: - 10/15 d/w CC and treatment team members daily the patient's condition(s), status, and d/c plans; ITD is TBD VTE Prophylaxis: - 10/15 LOVENOX ordered Subjective: No c/o; feels good Review of Systems: CONSTITUTIONAL: no fever, chills, sweats. Feels OK. HEENT/EYES: No ear or eye pain. No problems/changes with vision, hearing, or swallowing; no bloody discharge; hearing WNL. NECK/LYMPH: no pain or stiffness; No swelling or lumps or Lymphadenopathy. CHEST/RESP: No cough, shortness of breath at rest, painful respiration, or coughing up blood. CARDIO: no anginal chest pain or pressure. Not short of breath on exertion. No fast or irregular heartbeats. GI/GASTRO: nontender; + gas; No nausea, emesis, diarrhea. No black stools. : no bloody urine, dysuria, frequency or urge. No discharge. EXTREMITIES: no coldness, cramping, or new swelling. NEUROLOGIC: no mental status changes, new lateralizing weakness, numbness, or headaches. PSYCHIATRIC: no depression, anxiety or suicidality. SKIN: no blisters, rashes, pustules, or bleeding. ENDOCRINE: no sweats, weight loss, pigmentation changes, hair loss. Objective: BP 140/65 (BP Location: Left arm, Patient Position: Semi Fowlers) Pulse 65 Temp 98.2 ??F (36.8 ??C) (Oral) Resp 16 Ht 6' (1.829 m) Wt 213 lb 8 oz (96.8 kg) SpO2 96% BMI 28.96 kg/m?? I/O last 3 completed shifts: In: 1438.9 [P.O.:480; I.V.:103.2; IV Piggyback:855.6] Out: 3055 [Urine:3050; Blood:5] Weight: 213 lb 8 oz (96.8 kg) Constitutional: Alert and oriented to person, place, and time. No distress. Looks chronically debilitated Heent: op moist; no icterus. Neck: supple, no LAD, no TMG Cardiovascular: S1 and S2; Pulmonary/Chest: Effort normal and breath sounds normal. No respiratory distress. There are no wheezes. Abdominal: Soft. Bowel sounds are normal. No distension. There is no tenderness. There is no rebound and no guarding. Musculoskeletal: BLE trace edema and Neg Homans. RLE dressing c/d/I; toes warm with decr cap refill Neurological: nonfocal - Grossly normal; diffusely weak No confusion. Psych : good mood Skin: Skin is warm and dry. No erythema. Labs: Laboratory data and diagnostic testing reviewed 10/15/24. Ahsan Parra Jr., MD 10/15/2024 1:16 PM * Veronique Nielsen Sr. - 10/15/2024 10:15 AM EDT Images from the original note were not included. 10/15/24 1000 Reason for Visit Date of visit 10/15/24 Visited With Patient Visited By Pot Builder Reason for Visit Spiritual, emotional or social support Patient Assessment Patient Appears Calm Patient Mu-Ism at Registration Orthodoxy Patient Mu-Ism Upon Assessment Orthodoxy Spiritual Strengths and Coping Resources Meaningful relationship or connection with God;Sense of security from belief system;Spends time in prayer/spiritual practices;Support system Spiritual and Emotional Concerns Coping with chronic illness Patient Spiritual Wellbeing Appears to be coping adequately Interventions with Patient Relationship Building Interventions Cultivated a relationship of care and support;Listened empathetically Latter-Day Interventions Prayer with patient or family Exploration Interventions Provided caring and supportive presence Outcomes Expressed Outcomes Appreciative of visit;Appreciative of prayer/ritual Care Plan Plan for Follow-Up Pot Builder(s) will continue to follow throughout admission VERONIQUE Arredondo Pot Builder, Pastoral and Spiritual Care For non-urgent requests, please place a Pastoral Care consult in [facility]. For all urgent matters, please send an urgent [facility] Secure Chat to the Pastoral Care group at your location. Between 11pm and 7am, please use On-Call Finder to send an [facility] Secure Chat to the on-call trimmer sawyer. Pastoral Care office phone numbers: EDG/COV/GRT [phone], MICHELE [phone], FTT [phone], DBN [phone] * Ahsan Parra Jr., MD - 10/14/2024 1:20 PM EDT Images from the original note were not included. PROGRESS NOTE Chief Complaint Patient presents with Wound Check Patient to triage with sores on feet that per son look infected. Patient diabetic 10/13 Brief HPI: admitted for worsening Rgt leg/foot skin infxn with ulcers Assessment/Plan: Today's Condition: GUARDED Diabetic foot infection (HCC) - 10/12 blood cx = NGTD x 24 hrs (last read by me on 10/14) - Vancomycin, Cefepime, Flagyl -Check ESR CRP = bland - Podiatry consult -10/13 d/w Podiatry; cont wound care - 10/14 d/w Podiatry Intra-op Wound cx = pending Anaerobic cx = pending Patient is currently receiving treatment with vancomycin which requires monitoring by me for nephrotoxicity Lab Results Component Value Date CREATININE 0.57 (L) 10/14/2024 Coronary artery disease involving unga coronary artery of unga heart without angina pectoris - Stents - Resume GDMT - 10/14 currently no chest pain Essential hypertension Amlodipine, Imdur, lisinopril, Lopressor - trend daily - 10/14 # up; incr LISINOPRIL; add prn HYDRALAZINE Diabetes mellitus type 2 in nonobese (HCC) HgBA1c Lab Results Lab Results Component Value Date HGBA1C 7.9 (H) 10/12/2024 - Hold MF - SSI, Lantus - 10/14 I reviewed daily BS# to prevent potential life threatening complications like hypoglycemia, DKA or hyperglycemic coma: Lab Results Component Value Date FSBS 185 (H) 10/14/2024 FSBS 167 (H) 10/14/2024 FSBS 184 (H) 10/14/2024 PAD (peripheral artery disease) SP left common iliac artery stent placement 08/23 - 10/14 Checking duplex = pending Malignant neoplasm of urinary bladder (HCC) Was lost to follow-up but reestablished with urology-underwent cystoscopy-TURB 09/01 pathology consistent with bladder cancer - Follow-up urology as outpt Chronic pain syndrome Resume morphine/oxycodone - 10/14 Pain mngmt by me includes po meds prn, plus IV Morphine PRN for breakthrough pain -> which requires 24/7 continuous monitoring of data for toxicity monitoring 2/ to potential for respiratory suppression, altered mental status, dependence and addiction. ACP: THIS IS A CHANGE IN STATUS! 10/13 Patient voluntarily agrees to discuss ACP. LWill - NO. POA - NO. They and their family will work with an criminal defense attorney once out of hospital (at home - sooner than later)to generate/update these documents. These documents protect their quality of life, prevent their family from emotional stress/harm/guilt, and can prevent any arguments therein. We discussed the importance of these documents, including but not limited to : the importance of these documents to self and family, any previous experiences with EOL care and Living nguyen, exploration of personal and spiritual beliefs, goals of care, etc.. 16 minutes of time spent on discussion, education and counseling (b/c this decision was pertinent to their current medical diagnosis, and the associated risk therein) as well as documentation in their medical record. Code Status: DNR Dr Parra 10/13/24 Dispo: - 10/13 d/w CC and treatment team members daily the patient's condition(s), status, and d/c plans; ITD is TBD VTE Prophylaxis: none, preop and PAD eval ongoing PHARM VTE PROPH NON-CANDIDATE Subjective: Review of Systems: CONSTITUTIONAL: no fever, chills, sweats. Feels OK. HEENT/EYES: No ear or eye pain. No problems/changes with vision, hearing, or swallowing; no bloody discharge; hearing WNL. NECK/LYMPH: no pain or stiffness; No swelling or lumps or Lymphadenopathy. CHEST/RESP: No cough, shortness of breath at rest, painful respiration, or coughing up blood. CARDIO: no anginal chest pain or pressure. Not short of breath on exertion. No fast or irregular heartbeats. GI/GASTRO: nontender; + gas; No nausea, emesis, diarrhea. No black stools. : no bloody urine, dysuria, frequency or urge. No discharge. EXTREMITIES: no coldness, cramping, or new swelling. NEUROLOGIC: no mental status changes, new lateralizing weakness, numbness, or headaches. PSYCHIATRIC: no depression, anxiety or suicidality. SKIN: no blisters, rashes, pustules, or bleeding. ENDOCRINE: no sweats, weight loss, pigmentation changes, hair loss. Objective: BP 160/63 (BP Location: Right arm, Patient Position: Semi Fowlers) Pulse 59 Temp 98.2 ??F (36.8??C) (Oral) Resp 16 Ht 6' (1.829 m) Wt 213 lb 8 oz (96.8 kg) SpO2 90% BMI 28.96 kg/m?? I/O last 3 completed shifts: In: 626 [IV Piggyback:626] Out: 500 [Urine:500] Weight: 213 lb 8 oz (96.8 kg) Seen post-op Constitutional: Alert and oriented to person, place, and time. No distress. Looks chronically debilitated Heent: op moist; no icterus. Neck: supple, no LAD, no TMG Cardiovascular: S1 and S2; Pulmonary/Chest: Effort normal and breath sounds normal. No respiratory distress. There are no wheezes. Abdominal: Soft. Bowel sounds are normal. No distension. There is no tenderness. There is no rebound and no guarding. Musculoskeletal: LLE No edema and Neg Homans. RLE dressing c/d/I; trace edema, warm toes. Rgt hand w/ Dupuytrens 5th finger Neurological: nonfocal - Grossly normal. No confusion. Psych : good mood Skin: Skin is warm and dry. No erythema. Labs: Laboratory data and diagnostic testing reviewed 10/14/24. Ahsan Parra Jr., MD 10/14/2024 1:20 PM * Brook Villalba, Luis - 10/14/2024 10:15 AM EDT Pharmacy Consult- Vancomycin S: Lopez Aquino is a(n) 79 y.o. male with diagnosis of bilateral cellulitis with an ulcer and skin breakdown on the right food and leg . Allergies: Patient has no known allergies. Day 3 of pharmacy managed vancomycin therapy. Other antimicrobials include cefepime, metronidazole. O: Most Recent Labs: Temp Min: 97.2 ??F (36.2 ??C) Max: 98.4 ??F (36.9 ??C) Recent Labs 10/12/24 1810 10/13/24 0632 10/14/24 0539 WBC 7.0 6.3 6.1 BUN 21 17 12 CREATININE 0.97 0.75 0.57* Estimated Creatinine Clearance: 113.5 mL/min (A) (by C-G formula based on SCr of 0.57 mg/dL (L)). Recent Labs 10/12/24 1810 PROCLCTNIN 0.11 Recent Labs 10/12/24 2112 10/12/24 2248 10/13/24 0036 LACTA 2.6* 2.0* 1.6 Recent Labs 10/12/242111 CRP 28.69* I/O last 3 completed shifts: In: 626 [IV Piggyback:626] Out: 500 [Urine:500] I/O this shift: In: - Out: 5 [Blood:5] Height: 6' (182.9 cm) Weight: 213 lb 8 oz (96.8 kg) Culture & Sensitivities: pending A/P: bilateral cellulitis with an ulcer and skin breakdown on the right food and leg Physician orders and progress notes reviewed. Patient's renal function is stable. Continue vancomycin maintenance dose of 1500 mg (~15 mg/kg) every 18 hours. This dosing regimen was estimated to result in a predicted AUCss of 452 mg??hr/L; Goal AUC is 400-600. Will check levels on 10/15 between the 3rd and 4th dose Pharmacy will continue to follow patient for changes in renal function, efficacy, and signs of toxicity. Brook Villalba PharmD * Brook Villalba PharmD - 10/13/2024 11:15 AM EDT Pharmacy Consult: Vancomycin S: Lopez Lanza Sr. Miles is a(n) 79 y.o. male with diagnosis of bilateral cellulitis with an ulcer and skin breakdown on the right food and leg. Allergies: Patient has no known allergies. Day 2 of pharmacy managed vancomycin therapy. Other antimicrobials include cefepime, metronidazole. O: Most Recent Labs: Temp Min: 98.2 ??F (36.8 ??C) Max: 98.4 ??F (36.9 ??C) Recent Labs 10/12/24 1810 10/13/24 0632 WBC 7.0 6.3 BUN 21 17 CREATININE 0.97 0.75 Estimated Creatinine Clearance: 86.2 mL/min (by C-G formula based on SCr of 0.75 mg/dL). Recent Labs 10/12/24 181 PROCLCTNIN 0.11 Recent Labs 10/12/24 2112 10/12/24 2248 10/13/24 0036 LACTA 2.6* 2.0* 1.6 Recent Labs 10/12/242111 CRP 28.69* I/O last 3 completed shifts: In: 1887 [P.O.:120; IV Piggyback:1767] Out: 800 [Urine:800] No intake/output data recorded. Height: 6' (182.9 cm) Weight: 213 lb 8 oz (96.8 kg) Culture & Sensitivities: pending A/P: bilateral cellulitis with an ulcer and skin breakdown on the right food and leg Physician orders and progress notes reviewed. Renal function is stable. Continue vancomycin maintenance dose of 1500 mg (~15 mg/kg) every 18 hours. Will check levels on 10/15 between the 3rd and 4th dose Pharmacy will continue to follow patient for changes in renal function, efficacy, and signs of toxicity. Brook Villalba PharmD * Ahsan Parra Jr., MD - 10/13/2024 7:18 AM EDT Images from the original note were not included. PROGRESS NOTE Chief Complaint Patient presents with Wound Check Patient to triage with sores on feet that per son look infected. Patient diabetic 10/13 Brief HPI: admitted for worsening Rgt leg/foot skin infxn with ulcers Assessment/Plan: Today's Condition: GUARDED Diabetic foot infection (HCC) - Vancomycin, Cefepime, Flagyl -Check ESR CRP = bland - Podiatry consult -10/13 d/w Podiatry; cont wound care Patient is currently receiving treatment with vancomycin which requires monitoring by me for nephrotoxicity Lab Results Component Value Date CREATININE 0.97 10/12/2024 Coronary artery disease involving unga coronary artery of unga heart without angina pectoris - Stents - Resume GDMT - 10/13 currently no chest pain Essential hypertension Amlodipine, Imdur, lisinopril, Lopressor - trend daily - 10/13 # ok Diabetes mellitus type 2 in nonobese (HCC) HgBA1c Lab Results Component Value Date HGBA1C 7.9 (H) 10/12/2024 - Hold MF - SSI, Lantus - 10/13 I reviewed daily BS# to prevent potential life threatening complications like hypoglycemia, DKA or hyperglycemic coma: Lab Results Component Value Date FSBS 174 (H) 10/13/2024 FSBS 130 (H) 10/12/2024 FSBS 308 (H) 09/02/2023 PAD (peripheral artery disease) SP left common iliac artery stent placement 08/23 - 10/13 Checking duplex = pending Malignant neoplasm of urinary bladder (HCC) Was lost to follow-up but reestablished with urology-underwent cystoscopy-TURB 09/01 pathology consistent with bladder cancer - Follow-up urology as outpt Chronic pain syndrome Resume morphine/oxycodone - 10/13 Pain mngmt by me includes po meds prn, plus IV Morphine PRN for breakthrough pain -> which requires 24/7 continuous monitoring of data for toxicity monitoring 2/2 to potential for respiratory suppression, altered mental status, dependence and addiction. ACP: THIS IS A CHANGE IN STATUS! 10/13 Patient voluntarily agrees to discuss ACP. LWill - NO. POA - NO. They and their family will work with an criminal defense attorney once out of hospital (at home - sooner than later)to generate/update these documents. These documents protect their quality of life, prevent their family from emotional stress/harm/guilt, and can prevent any arguments therein. We discussed the importance of these documents, including but not limited to : the importance of these documents to self and family, any previous experiences with EOL care and Living nguyen, exploration of personal and spiritual beliefs, goals of care, etc.. 16 minutes of time spent on discussion, education and counseling (b/c this decision was pertinent to their current medical diagnosis, and the associated risk therein) as well as documentation in their medical record. Code Status: DNR Dr Parra 10/13/24 Dispo: - 10/13 d/w CC and treatment team members daily the patient's condition(s), status, and d/c plans; ITD is TBD VTE Prophylaxis: none, preop and PAD eval ongoing PHARM VTE PROPH NON-CANDIDATE Subjective: no new sx; feels ok Review of Systems: CONSTITUTIONAL: no fever, chills, sweats. Feels OK. HEENT/EYES: No ear or eye pain. No problems/changes with vision, hearing, or swallowing; no bloody discharge; hearing WNL. NECK/LYMPH: no pain or stiffness; No swelling or lumps or Lymphadenopathy. CHEST/RESP: No cough, shortness of breath at rest, painful respiration, or coughing up blood. CARDIO: no anginal chest pain or pressure. Not short of breath on exertion. No fast or irregular heartbeats. GI/GASTRO: nontender; + gas; No nausea, emesis, diarrhea. No black stools. : no bloody urine, dysuria, frequency or urge. No discharge. EXTREMITIES: no coldness, cramping, or new swelling. NEUROLOGIC: no mental status changes, new lateralizing weakness, numbness, or headaches. PSYCHIATRIC: no depression, anxiety or suicidality. SKIN: no NEW blisters, rashes, pustules, or bleeding. ENDOCRINE: no sweats, weight loss, pigmentation changes, hair loss. Objective: BP 142/54 (BP Location: Right arm, Patient Position: Semi Fowlers) Pulse 76 Temp 98.3 ??F (36.8??C) (Forehead) Resp 18 Ht 6' (1.829 m) Wt 213 lb 8 oz (96.8 kg) SpO2 98% BMI 28.96 kg/m?? I/O last 3 completed shifts: In: 1886 [P.O.:120; IV Piggyback:1766] Out: 800 [Urine:800] Weight: 213 lb 8 oz (96.8 kg) Constitutional: Alert and oriented to person, place, and time. No distress.looks chronically debilitated Heent: op moist; no icterus. Neck: supple, no LAD, no TMG Cardiovascular: S1 and S2; Pulmonary/Chest: Effort normal and breath sounds normal. No respiratory distress. There are no wheezes. Abdominal: Soft. Bowel sounds are normal. No distension. There is no tenderness. There is no rebound and no guarding. Musculoskeletal: BLE No edema and Neg Homans. Neurological: nonfocal - Grossly normal. No confusion. Psych : good mood Skin: Skin is warm and dry. RLE with erythema from toes up to midshin; 2 anterior ulcers - foot andmidshin. LLE with 2 upper reynolds ulcers with mild erythema Labs: Laboratory data and diagnostic testing reviewed 10/13/24. Ahsan Parra Jr., MD 10/13/2024 7:18 AM * Thomas Aguiar MD (Ronny) - 10/12/2024 11:52 PM EDTAssociated Problem(s): Diabetic foot infection (HCC) Continue vancomycin, cefepime, Flagyl Check ESR CRP Podiatry consult Check arterial duplex * Thomas Aguiar MD (Ronny) - 10/12/2024 11:52 PM EDTAssociated Problem(s): Diabetes mellitus type 2 in nonobese (HCC) Update A1c Hold MF SS, Lantus 10 units qhs * Thomas Aguiar MD (Ronny) - 10/12/2024 11:52 PM EDTAssociated Problem(s): PAD (peripheral artery disease) SP left common iliac artery stent placement 08/23 Checking duplex * Thomas Aguiar MD (Ronny) - 10/12/2024 11:52 PM EDTAssociated Problem(s): Coronary artery disease involving unga coronary artery of unga heart without angina pectoris (Resolved 10/13/2024) Stents Resume GDMT-currently no chest pain * Thomas Aguiar MD (Ronny) - 10/12/2024 11:52 PM EDTAssociated Problem(s): Essential hypertension Amlodipine, Imdur, lisinopril, Lopressor * Thomas Aguiar MD (Ronny) - 10/12/2024 9:08 PM EDTAssociated Problem(s): Malignant neoplasm of urinary bladder (HCC) Was lost to follow-up but reestablished with urology-underwent cystoscopy-TURB 09/01 pathology consistent with bladder cancer Follow-up urology * Nilda Watt, Director Trading - 10/12/2024 8:19 PM EDTSummary: Pharmacy Consult: Vancomycin Pharmacy Consult: Vancomycin S: Lopez Lanza Sr. Miles is a(n) 79 y.o. male with diagnosis of bilateral cellulitis with an ulcer and skin breakdown on the right foot and leg. Allergies: Patient has no known allergies. Pharmacy consulted to manage vancomycin therapy. Other antimicrobials include none at this time. O: Most Recent Labs: Temp Min: 98.3 ??F (36.8 ??C) Max: 98.3 ??F (36.8 ??C) Recent Labs 10/12/24 1810 WBC 7.0 BUN 21 CREATININE 0.97 Recent Labs 10/12/24 1810 PROCLCTNIN 0.11 Recent Labs 10/12/24 1810 LACTA 3.1* No intake/output data recorded. I/O this shift: In: 1000 [IV Piggyback:1000] Out: - Weight: 213 lb 10 oz (96.9 kg) Culture & Sensitivities: pending Patient's initial estimated kinetic parameters based on AUC kinetics: - CrCl = 73.3 mL/min - Ke = 0.0652 hr^-1 - Half-life = 10.63 hr A/P: Physician orders and progress notes reviewed. Patient???s renal function is stable. Will initiate vancomycin therapy with a 2000 mg (~20 mg/kg) loading dose, followed by a maintenancedose of 1500 mg (~15 mg/kg) every 18 hours. This dosing regimen is estimated to result in a predicted AUCss of 452 mg??hr/L; Goal AUC is 400-600. Will check levels on 10/14 between the 3rd and 4th dose. Pharmacy will follow patient for changes in renal function, efficacy, and signs of toxicity. Other labs: BMP daily x3. Thanks! Nilda Watt, Director Trading Cosigned by Jace White, PharmD at 10/12/2024 8:27 PM EDT documented in this encounter H&P Notes * Elvis Morgan MD - 10/22/2024 4:51 PM EDT PHYSICIAN IMMEDIATE PRE-PROCEDURE UPDATE H&P and SEDATION ASSESSMENT Risks, benefits, potential complications and alternatives have been discussed with patient and/or patient's legal authorized paper sales representative. HISTORY AND PHYSICAL Inpatient: H&P is completed and reviewed; progress notes reflect changes in patient condition. SEDATION ASSESSMENT The patient's immediate pre-procedure physical assessment indicates the patient is a suitable candidate for and agrees to the planned sedation: Moderate sedation Patient has been NPO for a sufficient period of time to allow for gastric emptying. Comment: Patient has no previous adverse experience to anesthesia. Comment: Vital Signs: Temp: 98 ??F (36.7 ??C) Pulse: 57 Resp: 18 BP: 150/65 SpO2: 96 % Comment: Patient's pain has been assessed and based on patient report consideration has been given as to howit might alter the patient's sedation plan. Comment: Patient's airway has been assessed and consideration has been given as to how it might alter the patient's response to sedation. Height: 6' (182.9 cm) Weight: 213 lb 8 oz (96.8 kg) BMI (Calculated): 29 Comment: No Known Allergies Source Note - Elvis Morgan MD - 10/15/2024 2:09 PM EDT Images from the original note were not included. Name: Lopez Aquino ADDRESS: [place] [id number] : 1945 AGE: 79 y.o. Hospital: [facility] Requesting Attending: Dr. Parra Primary Care Physician: Beck Lazar MD Date of Admission: 10/12/2024 Date of Consultation: 10/15/2024 Admitting Diagnosis: Diabetic foot infection (HCC) Chief Complaint / Reason for Consult: PAD HISTORY OF PRESENT ILLNESS History of Presenting Illness: Lopez Aquino is a(n) 79 y.o. male with PMH significant for diabetes mellitus, arthritis, bladder cancer, major depressive disorder, hypertension and CAD. He is known to our vascular service for PAD status post LLE intervention in 2018 (refer to vascular surgery history below for full details). He had a left BRYON stent on 08/24/23 at [facility] (records are not available for review). Post-stenting he was placed on Plavix and aspirin, but Plavix discontinued due to hematuria. The patient presented to the ER on 10/12 for worsening diabetic foot ulcers. X- ray of the right tibia/fibula showed no acute osseous abnormality. Bilateral foot X-rays showed small amount of subcutaneous gas in the dorsum of the right foot. He underwent incision and drainage of right foot abscess byPodiatry (Dr. Kruger) on 10/14. Vascular Surgery was consulted for further evaluation. BLE arterial duplex showed significant arterial atherosclerosis noted throughout the right lower extremity. There is evidence of severe diffuse arterial disease throughout the right lower extremity. Difficult to image and doppler making it difficult to determine stenosis/occlusions. Right proximal anterior tibial artery was imaged with monophasic flow; unable to visualize mid to distal due to dressings Right DPA was obtained; vessel is non-compressible. Right 1st digit is absent. Monophasic Doppler flow pattern is noted throughout the right lower extremity. Arterial atherosclerosis noted throughout the left lower extremity. Evidence of moderate left lower extremity arterial disease demonstrated. Biphasic Doppler flow pattern is noted in the common femoral, femoral and popliteal arteries of the left lower extremity. Monophasic Doppler flow pattern is noted throughout the tibial arteriesof the left lower extremity. Left MC is MERCERIZING RANGE FEEDER 0.98 and DPA 0.84. 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 Nocolor flow/spectral Doppler with intraluminal plaque noted throughout the left anterior tibial arter y consistent with a total occlusion. Vascular Surgery History: 08/24/2023 - L BRYON stenting ([facility]) 08/29/2017 - LE angio with angio of the left MERCERIZING RANGE FEEDER, peroneal artery and SFA (Dr. Morgan) REVIEW OF SYSTEMS Review of Systems: The following systems were reviewed and revealed the following in addition to any already discussedin the HPI: Constitutional: No additional concerns noted Eyes: No additional concerns HENT: No additional concerns noted Respiratory: No additional concerns noted Cardiovascular: No additional concerns noted Gastrointestinal: No additional concerns noted Genitourinary: No additional concerns noted Musculoskeletal: No additional concerns noted Integumentary: No additional concerns noted Hematology / Lymphatics: No additional concerns Endocrine: No additional concerns noted Allergy / Immunology: No additional concerns noted Neuro / Psych: No additional concerns noted MEDICAL HISTORY Medications Medications Prior to Admission Medication Sig Dispense Refill Last Dose/Taking amLODIPine (NORVASC) 5 mg Oral Tablet Take 1 Tab by mouth 2 times daily. 60 Tab 0 10/12/2024 at 9:00AM aspirin 81 mg Oral Tablet, Chewable Take by mouth daily (with breakfast). 10/12/2024 at 9:00 AM atorvastatin (LIPITOR) 40 mg Oral Tablet Take 1 Tab by mouth daily. 30 Tab 0 10/11/2024 Bedtime cilostazoL (PLETAL) 50 mg Oral Tablet Take 50 mg by mouth 2 times daily. 10/12/2024 at 2:00 PM insulin glargine U-100 (LANTUS) 100 unit/mL SubQ Solution Subcutaneous (Inject under the skin) 10 Units every evening. 10 mL 10/11/2024 Bedtime isosorbide mononitrate (IMDUR) 30 mg Oral Tablet Sustained Release 24 hr Take 30 mg by mouth every morning. 10/12/2024 at 7:00 PM lisinopriL (PRINIVIL;ZESTRIL) 10 mg Oral Tablet Take 10 mg by mouth daily. 10/12/2024 at 9:00 AM metFORMIN (GLUCOPHAGE) 500 mg tablet Take 500 mg by mouth 3 times daily. 10/12/2024 at 2:00 PM metoprolol (LOPRESSOR) 25 mg tablet Take 50 mg by mouth 2 times daily. 10/12/2024 at 5:00 PM mirabegron (MYRBETRIQ) 25 mg Oral Tablet Sustained Release 24 hr Take 1 Tablet by mouth daily. 30 Tablet 0 10/12/2024 at 5:00 PM morphine (MSIR) 15 mg Oral Tablet Take 15 mg by mouth 2 times daily. 10/12/2024 at 5:00 PM oxyCODONE (ROXICODONE) 5 mg Oral Tablet Take 5 mg by mouth every 4 hours as needed for Chronic Pain(G89.29). 10/11/2024 at 9:00 AM pregabalin (LYRICA) 150 mg Oral Capsule Take 150 mg by mouth 2 times daily. 10/12/2024 at 7:00 PM acetaminophen (TYLENOL) 500 mg Oral Tablet Take 1 Tablet by mouth every 4 hours as needed for Pain.(Patient not taking: Reported on 10/12/2024) Not Taking CINNAMON BARK (CINNAMON ORAL) Take 2,000 mg by mouth daily. (Patient not taking: Reported on 08/31/2023) Unknown cyanocobalamin 1,000 mcg Oral Tablet Take 1 Tablet by mouth daily. (Patient not taking: Reported on10/12/2024) 90 Tablet 0 Not Taking diclofenac (VOLTAREN) 1 % Top Gel Apply 2 g topically 2 times daily. (Patient taking differently: Apply 2 g topically as needed.) Unknown ferrous sulfate 325 mg (65 mg iron) Oral Tablet Take 1 Tablet by mouth daily. (Patient not taking: Reported on 10/12/2024) 90 Tablet 0 Not Taking insulin lispro (HUMALOG U-100 INSULIN) 100 unit/mL SubQ Solution Subcutaneous (Inject under the skin) 10-12 Units 3 times daily (before meals). (Patient not taking: Reported on 10/12/2024) Not Taking Lancets Misc Misc Lancet 100, meter 1, strips 100 of insurance choice 1 box 0 Unknown LEVEMIR FLEXPEN 100 unit/mL (3 mL) SubQ Insulin Pen Subcutaneous (Inject under the skin) 50 Units every evening. Unknown nitroGLYCERIN (NITROSTAT) 0.[address] 1 Tab under the tongue every 5 minutes as needed for Chest pain for 3 doses. (Patient not taking: Reported on 10/12/2024) 50 Tab 2 Not Taking tamsulosin (FLOMAX) 0.4 mg Oral Capsule Take 1 Capsule by mouth nightly. (Patient not taking: Reported on 10/12/2024) 30 Capsule 0 Not Taking Current Facility-Administered Medications Medication Dose Route Frequency Provider Last Rate Last Admin acetaminophen (TYLENOL) tablet 650 mg 650 mg Oral Q4H PRN Grupo Krguer DPM amLODIPine (NORVASC) tablet 5 mg 5 mg Oral BID Grupo Kruger DPM 5 mg at 10/15/24 0905 atorvastatin (LIPITOR) tablet 40 mg 40 mg Oral Nightly Grupo Kruger DPM 40 mg at 10/14/24 2210 ceFEPIme (MAXIPIME) 1 g/50 mL IVPB 1 g Intravenous 3 times per day Grupo Kruger DPM Stopped at 10/15/24 0953 dextrose 50 % solution 25 mL 25 mL Intravenous PRN Grupo Kruger DPM diphenhydrAMINE (BENADRYL) injection 25 mg 25 mg Intravenous Q4H PRN Pa LindseyLISA 25 mg at 10/14/24 2249 enoxaparin (LOVENOX) injection 40 mg 40 mg Subcutaneous Daily - LMWH/Xa Ahsan Parra Jr., MD glucagon (GLUCAGEN) injection 1 mg 1 mg Intramuscular PRN Grupo Kruger DPM And sterile water injection 1 mL 1 mL Injection PRN Grupo Kruger DPM hydrALAZINE (APRESOLINE) tablet 25 mg 25 mg Oral TID PRN Ahsan Parra Jr., MD insulin aspart U-100 (NovoLOG) injection 1-15 Units 1-15 Units Subcutaneous QID WM Noam Parra Jr., MD insulin glargine U-100 (LANTUS) injection 20 Units 20 Units Subcutaneous QPM (Insulin) Ahsan Parra Jr., MD isosorbide mononitrate (IMDUR) CR tablet 30 mg 30 mg Oral Nightly Grupo Kruger DPM 30 mg at 10/14/24 2210 lisinopriL (PRINIVIL;ZESTril) tablet 20 mg 20 mg Oral Daily Ahsan Parra Jr., MD 20 mg at 10/15/24 0905 metoprolol (LOPRESSOR) tablet 50 mg 50 mg Oral BID Grupo Kruger DPM 50 mg at 10/15/24 0905 metroNIDAZOLE (FLAGYL) IVPB 500 mg 500 mg Intravenous 3 times per day Grupo Kruger DPM Stopped at 10/14/24 2255 miconazole (MICATIN) 2 % powder Topical BID Grupo Kruger DPM Given at 10/15/24 0900 morphine (MS CONTIN) CR tablet 45 mg 45 mg Oral 2 times per day Grupo Kruger DPM 45 mg at 10/15/24 0905 morphine injection 1-2 mg 1-2 mg Intravenous Q4H PRN Grupo Kruger DPM ondansetron (ZOFRAN) injection 4 mg 4 mg Intravenous Q4H PRN Grupo Kruger DPM oxyCODONE (ROXICODONE) immediate release tablet 5 mg 5 mg Oral Q4H PRN Grupo Kruger DPM pregabalin (LYRICA) capsule 300 mg 300 mg Oral BID [employer]upo Kruger Anne Marie, DPM 300 mg at 10/15/24 0905 sodium chloride 0.9% IV line flush 20-50 mL 20-50 mL Intravenous PRN Ahsan Parra Jr., MD sodium chloride 0.9% syringe Intravenous 2 times per day Ahsan Parra Jr., MD 10 mL at 10/15/24 0906 sodium chloride 0.9% syringe Intravenous PRN Ahsan Parra Jr., MD vancomycin in dextrose 5% (VANCOCIN) premix IVPB 1,500 mg 1,500 mg Intravenous Q18H Nuno Eaton MD Stopped at 10/14/24 1228 No Known Allergies Past Medical History: Diagnosis Date Adjustment disorder with depressed mood 08/29/2017 Ambulates with cane for balance Arthritis Bladder problem CANCER CAD (coronary artery disease) Echo 07/21/2015: LVEF 60-65%. Abnormal septal motion (septal bounce). Mild pulmonic regurgitation. Cancer (HCC) BLADDER Diabetes mellitus (HCC) PERLA (dyspnea on exertion) Former smoker 01/07/2013 Full dentures H/O hematuria s/p L iliac stenting; admitted Heart murmur Heartburn Hypertension GXT 07/21/2015: LVEF 70%. Normal LV perfusion study. There is no pharmacologically provoked ischemia. Preserved LV systolic funtion. Preserved right ventricular function. Major depressive disorder, single episode, severe (HCC) 08/29/2017 Neuromuscular disorder (HCC) NEUROPATHY Osteoarthritis PAD (peripheral artery disease) Peripheral vascular disease Toe infection 05/04/2018 left middle toe infection, on Keflex for this, instructed to call Dr Berger prior to surgery Wears glasses Past Surgical History: Procedure Laterality Date BLADDER TUMOR EXCISION N/A 09/02/2023 CYSTOSCOPY, SMALL TRANSURETHRAL RESECTION OF BLADDER TUMOR, FULGERATION OF BLADDER; Surgeon: Naman Murray MD; Location: [facility]; Service: Urology CATARACT REMOVAL Right 05/10/2018 RIGHT EYE CATARACT EXTRACTION WITH PHACOEMULSIFICATION AND INTRAOCULAR LENS; Surgeon: Naman Berger MD; Location: [facility]; Service: Ophthalmology CATARACT REMOVAL Left 05/24/2018 LEFT EYE CATARACT EXTRACTION WITH PHACOEMULSIFICATION AND INTRAOCULAR LENS; Surgeon: Naman Berger MD; Location: [facility]; Service: Ophthalmology CIRCUMCISION 2018 CORONARY ANGIOPLASTY WITH STENT PLACEMENT 2002 stents x 3 DENTAL SURGERY Full dentures ILIO-FEMORAL BYPASS GRAFT Left 08/24/2023 left iliac stent placement IR ABDOMINAL AORTOGRAM SERIALOGRAM 08/29/2017 IR ABDOMINAL AORTOGRAM SERIALOGRAM 08/29/2017 Elvis Morgan MD [facility] IR IR ANGIOGRAM EXTREMITY BILATERAL 08/29/2017 IR ANGIOGRAM EXTREMITY BILATERAL 08/29/2017 Elvis Morgan MD [facility] IR FLUOROSCOPY GUIDED CENTRAL VENOUS ACCESS DEVICE PLACEMENT 09/05/2017 IR FLUOROSCOPY GUIDED CENTRAL VENOUS ACCESS DEVICE PLACEMENT 09/05/2017 Lata Vivar PA-C [facility] IR IR REVAS FEM POP ART UNILAT W MERCERIZING RANGE FEEDER 08/29/2017 IR REVAS FEM POP ART UNILAT W MERCERIZING RANGE FEEDER 08/29/2017 Elvis Morgan MD [facility] IR IR TUNNEL CATHETER REMOVAL WITHOUT IMAGING 10/12/2017 IR TUNNEL CATHETER REMOVAL WITHOUT IMAGING 10/12/2017 Ltaa Vivar PA-C [facility] IR IR TUNNELED PICC LINE 09/08/2017 IR TUNNELED PICC LINE 09/08/2017 Marika Villa PA [facility] IR IR ULTRASOUND GUIDED VASCULAR ACCESS 09/05/2017 IR ULTRASOUND GUIDED VASCULAR ACCESS 09/05/2017 Lata Vivar PA-C [facility] IR TOE AMPUTATION Left 08/30/2017 INCISION AND DRAINAGE WITH AMPUTATION LEFT HALLUX ; Surgeon: Sandra Rubi DPM; Location: [facility]; Service: Podiatry TOE AMPUTATION Left 07/24/2018 AMPUTATION LEFT SECOND TOE; Surgeon: Grupo Kruger DPM; Location: [facility]; Service: Podiatry Family History Problem Relation Age of Onset Coronary Art Dis Father 50 approx Cancer Father Heart Disease Father Stroke Mother Cancer Sister Pancreatic Anesth Problems Neg Hx Social History: Social History Tobacco Use Smoking Status Every Day Current packs/day: 1.00 Average packs/day: 1 pack/day for 40.6 years (40.6 ttl pk-yrs) Types: Cigars, Cigarettes Start date: 1962 Last attempt to quit: 1989 Smokeless Tobacco Never Tobacco Comments Cigarettes-quit 2001 but still smokes cigars PHYSICAL EXAMINATION Physical Examination Patient Vitals for the past 24 hrs: BP Temp Temp src Pulse Resp SpO2 10/15/24 0903 140/65 98.2 ??F (36.8 ??C) Oral 65 16 96 % 10/15/24 0550 145/64 98.6 ??F (37 ??C) Oral 63 16 96 % 10/14/24 2100 160/73 98.2 ??F (36.8 ??C) Oral 66 16 94 % 10/14/24 1529 145/65 98 ??F (36.7 ??C) Oral 60 16 92 % General: Patient appears comfortable in no apparent distress. Skin: Pics in media reviewed as seen below: RLE R foot Left foot R foot LLE Head: NC/AT Eyes: Anicteric sclerae. ENT: Face is symmetrical. Neck: No tracheal deviation Lungs: Effort normal Cardiac: RRR Abdomen: Abdomen is soft, non-tender. Vascular Pulse Exam: (Difficult due to body habitus, sitting up in a motorized scooter and wearing sweat pants) R radial +2 L radial +2 R femoral L femoral R popliteal L popliteal R posterior tibial dressing L posterior tibial R dorsalis pedis dressing L dorsalis pedis Back: No kyphosis noted : not examined Lymphadenopathy: not examined Musculoskeletal: moves all extremities Extremities: No lower extremity edema. L groin dressing removed. Neurological: alert and oriented. LABS AND RADIOLOGY Laboratory: CBC: Lab Results Component Value Date WBC 5.9 10/15/2024 RBC 5.03 10/15/2024 HGB 14.5 10/15/2024 HCT 43.6 10/15/2024 MCV 86.7 10/15/2024 MCHC 33.3 10/15/2024 RDW 15.0 (H) 10/15/2024 PLT 172 10/15/2024 MPV 10.5 10/15/2024 BMP: Lab Results Component Value Date NA 133 (L) 10/15/2024 K 4.6 10/15/2024 CL 98 10/15/2024 CO2 24 10/15/2024 BUN 11 10/15/2024 CREATININE 0.55 (L) 10/15/2024 CALCIUM 9.1 10/15/2024 GLU 306 (H) 10/15/2024 Radiology: MS US LOWER EXTREMITY ARTERIAL DUPLEX COMPLETE Result Date: 10/14/2024 Conclusions * Significant arterial atherosclerosis noted throughout the right lower extremity. * Evidence of severe diffuse arterial disease throughout the right lower extremity. Difficult to image and doppler making it difficult to determine stenosis/occlusions. * Right proximal anterior tibial artery was imaged with monophasic flow; unable to visualize mid to distal due to dressings. * Right DPA was obtained; vessel is non-compressible. * Right 1st digit is absent. * Monophasic Doppler flow pattern is noted throughout the right lower extremity. * Arterial atherosclerosis noted throughout the left lower extremity. * Evidence of moderate left lower extremity arterial disease demonstrated. * Biphasic Doppler flow pattern is noted in the common femoral, femoral and popliteal arteries of theleft lower extremity. * Monophasic Doppler flow pattern is noted throughout the tibial arteries of the left lower extremity. * Left MC is MERCERIZING RANGE FEEDER 0.98 and DPA 0.84. 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 * No color flow/spectral Doppler with intraluminal plaque noted throughout the left anterior tibial artery consistent with a total occlusion. MEDICAL DECISION MAKING Assessment: PAD with bilateral diabetic foot ulcers S/p I&D right foot abscess by Podiatry on 10/14 Hx L BRYON stenting on 08/24/2023 Hypertension CAD hx stents Diabetes mellitus Bladder cancer Chronic pain syndrome Recommendations: No immediate plans for vascular intervention. Ok to resume previous diet if cleared by other specialist. Continue ABX. Wound care per Podiatry recommendations. Dr. Morgan will review the images of the BLE arterial duplex with further recommendations to follow. May need to consider CT angiogram of the aorta with runoff vs LE angiogram with intervention duringthis admission. Continue statin. Consider starting bASA Thank you for including us in the care of your patient. I will follow Lopez Aquino with you during this hospitalization. Time spent reviewing chart, discussing plan/answering questions of family, and at the bedside examining patient: 45 minutes Signed: Sal Daniel PA-C 10/15/2024 2:10 PM Physician Documentation: I independently evaluated the patient, performed a physical examination, and review of the history,labs and medications. I reviewed the findings of the physician assistant chief of police/nurse practitioner and discussed the case in detail. Below is a summary of my pertinent independent evaluation and findings inaddition to the assessment and plan formulated by the physician assistant chief of police/nurse practitioner. Patient seen examined. Patient with history of lower extremity PAD who presented with nonhealing right lower EXTR ulceration. On examination patient's right foot is wrapped with bandage. Patient's arterial study reviewed. Revealed diffuse lower extremity disease. I recommend angiogram with intervention to improve lower EXTR perfusion. Patient however would like to wait to see if the wound will heal. Will continue local wound care. ELVIS MORGAN MD, FACS This note was completed using voice recognition technology. Despite the video game script writer's best efforts to proof read, it may still contain unintended errors. Please call with questions. * Thomas Aguiar (MD Verna - 10/12/2024 8:52 PM EDT Images from the original note were not included. SEP HOSPITALIST H&P Name: Lopez Aquino : 1945 AGE: 79 y.o. CC: Chief Complaint Patient presents with Wound Check Patient to triage with sores on feet that per son look infected. Patient diabetic HPI: Lopez Aquino is a 79 y.o. male with PMH of diabetes A1c 10.2, PVD, bladder cancer, history of CAD with stents in 2001 and 2012, had ulceration over dorsum of right foot for yearshowever had noted today area was become more erythematous and swollen. No fever chills. On exam both legs have erythema on the right anterior leg and dorsum of foot there is ulcerative lesions no active drainage the foot is also swollen. Workup X-rays with small amount of subcutaneous gas in dorsum of right foot. So far afebrile, negative white count, negative procalcitonin, lactic count is elevated Appears to have some degree of respiratory acidosis but no respiratory distress at the moment. Mild hyperkalemia 5.4-dose of Lokelma given Started on cefepime, vancomycin and Flagyl ALLERGIES: No Known Allergies HOME MEDS: Prior to Admission medications Medication Sig Start Date End Date Taking? Authorizing Provider acetaminophen (TYLENOL) 500 mg Oral Tablet Take 1 Tablet by mouth every 4 hours as needed for Pain.09/02/23 Naman Murray MD amLODIPine (NORVASC) 5 mg Oral Tablet Take 1 Tab by mouth 2 times daily. 10/12/17 Wenceslao Roque MD aspirin 81 mg Oral Tablet, Chewable Take by mouth daily (with breakfast). Provider, Historical atorvastatin (LIPITOR) 40 mg Oral Tablet Take 1 Tab by mouth daily. 07/26/18 Asa Morin MD cilostazoL (PLETAL) 50 mg Oral Tablet Take 50 mg by mouth 2 times daily. 08/25/23 Provider, Historical CINNAMON BARK (CINNAMON ORAL) Take 2,000 mg by mouth daily. Patient not taking: Reported on 08/31/2023 Provider, Historical cyanocobalamin 1,000 mcg Oral Tablet Take 1 Tablet by mouth daily. 08/29/23 Pallavi Robison MD diclofenac (VOLTAREN) 1 % Top Gel Apply 2 g topically 2 times daily. Patient taking differently: Apply 2 g topically as needed. 08/19/22 Hunter Simms MD ferrous sulfate 325 mg (65 mg iron) Oral Tablet Take 1 Tablet by mouth daily. 08/28/23 Pallavi Robison MD insulin glargine U-100 (LANTUS) 100 unit/mL SubQ Solution Subcutaneous (Inject under the skin) 10 Units every evening. 08/19/22 Hunter Simms MD insulin lispro (HUMALOG U-100 INSULIN) 100 unit/mL SubQ Solution Subcutaneous (Inject under the skin) 10-12 Units 3 times daily (before meals). 08/04/22 Provider, Historical isosorbide mononitrate (IMDUR) 30 mg Oral Tablet Sustained Release 24 hr Take 30 mg by mouth every morning. Provider, Historical Lancets [facility] Lancet 100, meter 1, strips 100 of insurance choice 12/22/17 Thomas Robert MD LEVEMIR FLEXPEN 100 unit/mL (3 mL) SubQ Insulin Pen Subcutaneous (Inject under the skin) 50 Units every evening. Provider, Historical lisinopriL (PRINIVIL;ZESTRIL) 10 mg Oral Tablet Take 10 mg by mouth daily. 07/10/23 Provider, Historical metFORMIN (GLUCOPHAGE) 500 mg tablet Take 500 mg by mouth 3 times daily. 01/08/13 Sunshine Magallon MD metoprolol (LOPRESSOR) 25 mg tablet Take 50 mg by mouth 2 times daily. Provider, Historical mirabegron (MYRBETRIQ) 25 mg Oral Tablet Sustained Release 24 hr Take 1 Tablet by mouth daily. 08/28/23 Pallavi Robison MD morphine (MSIR) 15 mg Oral Tablet Take 15 mg by mouth 2 times daily. Provider, Historical nitroGLYCERIN (NITROSTAT) 0.[address] 1 Tab under the tongue every 5 minutes as needed for Chest pain for 3 doses. 01/18/13 Kevin Lynn MD oxyCODONE (ROXICODONE) 5 mg Oral Tablet Take 5 mg by mouth every 4 hours as needed for Chronic Pain(G89.29). 08/24/23 Provider, Historical pregabalin (LYRICA) 150 mg Oral Capsule Take 150 mg by mouth 2 times daily. Provider, Historical tamsulosin (FLOMAX) 0.4 mg Oral Capsule Take 1 Capsule by mouth nightly. 08/28/23 Pallavi Robison MD PMH: Past Medical History: Diagnosis Date Adjustment disorder with depressed mood 08/29/2017 Ambulates with cane for balance Arthritis Bladder problem CANCER CAD (coronary artery disease) Echo 07/21/2015: LVEF 60-65%. Abnormal septal motion (septal bounce). Mild pulmonic regurgitation. Cancer (HCC) BLADDER Diabetes mellitus (HCC) PERLA (dyspnea on exertion) Former smoker 01/07/2013 Full dentures H/O hematuria s/p L iliac stenting; admitted Heart murmur Heartburn Hypertension GXT 07/21/2015: LVEF 70%. Normal LV perfusion study. There is no pharmacologically provoked ischemia. Preserved LV systolic funtion. Preserved right ventricular function. Major depressive disorder, single episode, severe (HCC) 08/29/2017 Neuromuscular disorder (HCC) NEUROPATHY Osteoarthritis PAD (peripheral artery disease) Peripheral vascular disease Toe infection 05/04/2018 left middle toe infection, on Keflex for this, instructed to call Dr Berger prior to surgery Wears glasses SURGICAL HX: Past Surgical History: Procedure Laterality Date BLADDER TUMOR EXCISION N/A 09/02/2023 CYSTOSCOPY, SMALL TRANSURETHRAL RESECTION OF BLADDER TUMOR, FULGERATION OF BLADDER; Surgeon: Naman Murray MD; Location: [facility]; Service: Urology CATARACT REMOVAL Right 05/10/2018 RIGHT EYE CATARACT EXTRACTION WITH PHACOEMULSIFICATION AND INTRAOCULAR LENS; Surgeon: Naman Berger MD; Location: [facility]; Service: Ophthalmology CATARACT REMOVAL Left 05/24/2018 LEFT EYE CATARACT EXTRACTION WITH PHACOEMULSIFICATION AND INTRAOCULAR LENS; Surgeon: Naman Berger MD; Location: [facility]; Service: Ophthalmology CIRCUMCISION 2018 CORONARY ANGIOPLASTY WITH STENT PLACEMENT 2002 stents x 3 DENTAL SURGERY Full dentures ILIO-FEMORAL BYPASS GRAFT Left 08/24/2023 left iliac stent placement IR ABDOMINAL AORTOGRAM SERIALOGRAM 08/29/2017 IR ABDOMINAL AORTOGRAM SERIALOGRAM 08/29/2017 Elvis Morgan MD [facility] IR IR ANGIOGRAM EXTREMITY BILATERAL 08/29/2017 IR ANGIOGRAM EXTREMITY BILATERAL 08/29/2017 Elvis Morgan MD [facility] IR IR FLUOROSCOPY GUIDED CENTRAL VENOUS ACCESS DEVICE PLACEMENT 09/05/2017 IR FLUOROSCOPY GUIDED CENTRAL VENOUS ACCESS DEVICE PLACEMENT 09/05/2017 Lata Vivar PA-C [facility] IR REVAS FEM POP ART UNILAT W MERCERIZING RANGE FEEDER 08/29/2017 IR REVAS FEM POP ART UNILAT W MERCERIZING RANGE FEEDER 08/29/2017 Elvis Morgan MD [facility] IR TUNNEL CATHETER REMOVAL WITHOUT IMAGING 10/12/2017 IR TUNNEL CATHETER REMOVAL WITHOUT IMAGING 10/12/2017 Lata Vivar PA-C [facility] IR IR TUNNELED PICC LINE 09/08/2017 IR TUNNELED PICC LINE 09/08/2017 Marika Villa PA [facility] IR ULTRASOUND GUIDED VASCULAR ACCESS 09/05/2017 IR ULTRASOUND GUIDED VASCULAR ACCESS 09/05/2017 Lata Vivar PA-C [facility] IR TOE AMPUTATION Left 08/30/2017 INCISION AND DRAINAGE WITH AMPUTATION LEFT HALLUX ; Surgeon: Sandra Rubi DPM; Location: [facility] OR; Service: Podiatry TOE AMPUTATION Left 07/24/2018 AMPUTATION LEFT SECOND TOE; Surgeon: Grupo Kruger DPM; Location: [facility]; Service: Podiatry FHX: Family history reviewed. Pertinent history as listed in HPI. Family History Problem Relation Age of Onset Coronary Art Dis Father 50 approx Cancer Father Heart Disease Father Stroke Mother Cancer Sister Pancreatic Anesth Problems Neg Hx SOCIAL HX: Social History Tobacco Use Smoking status: Every Day Current packs/day: 1.00 Average packs/day: 1 pack/day for 40.6 years (40.6 ttl pk-yrs) Types: Cigars, Cigarettes Start date: 1962 Last attempt to quit: 1989 Smokeless tobacco: Never Tobacco comments: Cigarettes-quit 2001 but still smokes cigars Substance Use Topics Alcohol use: No Past Med, SH and reviewed Review of Systems Constitutional: Negative for chills and fever. Respiratory: Negative for cough. Cardiovascular: Negative for chest pain and palpitations. Gastrointestinal: Negative for abdominal pain, diarrhea and vomiting. Neurological: Negative for dizziness and focal weakness. Psychiatric/Behavioral: Negative for depression and suicidal ideas. All other ROS neg Physical Exam Constitutional: General: He is not in acute distress. Cardiovascular: Rate and Rhythm: Normal rate. Pulmonary: Effort: Pulmonary effort is normal. Breath sounds: Normal breath sounds. Abdominal: General: Abdomen is flat. Palpations: Abdomen is soft. Musculoskeletal: Comments: Right foot more swollen erythematous compared to left, difficult to get good pulses due to edema Has severe nephropathy so does not feel much Skin: General: Skin is warm. Neurological: General: No focal deficit present. Mental Status: He is alert and oriented to person, place, and time. Vitals: 10/12/242014 BP: (!) 136/95 Pulse: 73 Resp: 16 Temp: SpO2: 95% Radiology/ Procedures/Labs: Pertinent imaging and laboratory studies were reviewed. ACTIVE PROBLEM LIST: Active Hospital Problems Diagnosis *Diabetic foot infection (HCC) Coronary artery disease involving unga coronary artery of unga heart without angina pectoris Malignant neoplasm of urinary bladder (HCC) PAD (peripheral artery disease) Essential hypertension Diabetes mellitus type 2 in nonobese (HCC) ASSESSMENT/ PLAN: Assessment & Plan Diabetic foot infection (HCC) Continue vancomycin, cefepime, Flagyl Check ESR CRP Podiatry consult Check arterial duplex Coronary artery disease involving unga coronary artery of unga heart without angina pectoris Stents Resume GDMT-currently no chest pain Essential hypertension Amlodipine, Imdur, lisinopril, Lopressor Diabetes mellitus type 2 in nonobese (HCC) Update A1c Hold MF SS, Lantus 10 units qhs PAD (peripheral artery disease) SP left common iliac artery stent placement 08/23 Checking duplex Malignant neoplasm of urinary bladder (HCC) Was lost to follow-up but reestablished with urology-underwent cystoscopy-TURB 09/01 pathology consistent with bladder cancer Follow-up urology Chronic pain syndrome Resume morphine/oxycodone VTE Prophylaxis: SCDs FEN: 75 GM CONSISTENT CARB DIET NPO DIET Dispo: Condition requiring admission to inpatient for further management. Code Status: Full Code Note generated via voice dictation please excuse any unintended spelling errors.. Vancomycin is a high risk medication requires close 24/7 continuous observation and monitoring. Vancomycin levels and kidney function will be closely followed Thomas Love) MD Stefania documented in this encounter Procedure Notes * Elvis Morgan MD - 10/22/2024 10:24 PM EDT Images from the original note were not included. Brief Cath Note Patient Name: Lopez Aquino MR No: [id number] Date of : 1945 PRE-OP DIAGNOSIS: R LE PAD with ulceration POST-OP DIAGNOSIS: Same PROCEDURE(S): Access L TEAM OTR TRUCK DRIVER with 5 fr with US Omni cath in aorta with aortogram with runoff Omni cath in aortic bifurcation with aortoiliac angiogram with runoff Cross bifurcation with cath in R TEAM OTR TRUCK DRIVER R LE angiogram L LE angiogram 5 fr destination in R TEAM OTR TRUCK DRIVER Cath in R Pop with additional tibial angiogram R Pern AP 4*100 DCB R Pop AP 4*100 DCB Completion angiogram Mynx L TEAM OTR TRUCK DRIVER SURGEON(S): Elvis Morgan MD ENERGY CROP FARMER(S): None ANESTHESIA: Local with Sedation SPECIMENS: None ESTIMATED BLOOD LOSS: Less than 10 ml. FINDINGS: DISPOSITION/POST PROC COURSE: Stable to recovery room. This note was completed using voice recognition technology. Despite the video game script writer's best efforts to proof read, it may still contain unintended errors. Please call with questions. Signed: Elvis Morgan MD 10/22/2024 10:24 PM * Grupo Kruger DPM - 10/14/2024 9:14 PM EDT DATE OF OPERATION: 10/14/2024 PREOPERATIVE DIAGNOSES: Diabetic foot infection, right. Infected diabetic ulcer, right leg. Infected diabetic ulcer, right dorsal foot. POSTOPERATIVE DIAGNOSES: Diabetic foot infection, right. Infected diabetic ulcer, right leg. Infected diabetic ulcer, right dorsal foot. PROCEDURES: Incision and drainage with debridement, right dorsal foot abscess and diabetic foot ulcer. Incision and drainage, right anterior ankle diabetic ulcer and abscess. SURGEON: Grupo Kruger DPM ENERGY CROP FARMER: None. ANESTHESIA: Local with IV sedation. ESTIMATED BLOOD LOSS: 10 mL PROCEDURE DETAILS: In the preoperative holding area, the patient was identified. Surgery sites wereidentified and marked. Patient was taken to the Operating Room. Following IV sedation, local anesthesia was obtained utilizing a 1:1 mixture of 0.5% Marcaine plain and 1% lidocaine plain. The right foot and lower leg were then scrubbed, prepped and draped in usual sterile manner. Following the final timeout, I first directed attention to the dorsal midfoot. At this point, I took a 15 blade and excised the ulcer. There was extensive pus. Culture swab was obtained. There was fluctuance as well. Alannahen made an incision proximally and distally about 2 cm. With subcutaneous dissection, the abscesswas indentified irrigated and drained and debrided. Deep tissue cultures were obtained. Hemostasis was accomplished via electrocautery. There was fairly good bleeding. I then directed attention to the anterior ankle, where I did exactly the same procedures as on the dorsal foot. Findings were the same as well. Irrigation was carried out. These were left open and packed with 1/4-inch iodoform Nu Gauze. Soft dressing was applied. Patient tolerated the anesthesia and procedures well. Reviewed in full by beatriz/SOY, 10/15/2024 Grupo Kruger D.P.M. By: Sheila Job ID: [id number] Doc ID: [id number] * Grupo Kruger DPM - 10/14/2024 8:20 AM EDT [facility] OPERATIVE/PROCEDURE NOTE Lopez Lanza Sr. October 14, 2024 Body mass index is 28.96 kg/m??. PRE-OP DIAGNOSIS: Diabetic foot infection (HCC) [E11.628, L08.9] POST-OP DIAGNOSIS: Diabetic foot infection (HCC) [E11.628, L08.9] PROCEDURE(S): Procedure(s): INCISION, DRAINAGE and debridement right foot and leg SURGEON(S): Surgeons and Role: * Grupo Kruger DPM - Primary ENERGY CROP FARMER(S): ANESTHESIA: General SPECIMENS: ID Type Source Tests Collected by Time Destination A : Ulcer right foot Swab Foot, Right ANAEROBIC CULTURE (NO STAIN), GRAM STAIN (STAIN ONLY), WOUND CULTURE (STAIN INCLUDED), FUNGUS CULTURE (NO STAIN) Grupo Kruger DPM 10/14/2024 0814 ESTIMATED BLOOD LOSS (mls): 10ml *EBL MUST be documented as a numeric value FINDINGS: pus at each location OTHER INFO: DISPOSITION/POST PROC COURSE: phase 1 Grupo Kruger DPM Date: 10/14/2024 documented in this encounter Consult Notes * Jacqueline Jordan APRN - 10/23/2024 12:22 PM EDTAssociated Order(s): IP CONSULT TO UROLOGY Images from the original note were not included. 10/23/[address] [facility] 1945 [id number] Reason for Consult: Hematuria Requesting Physician: Fahad Covarrubias MD History Obtained From: Patient/Son/Chart HISTORY OF PRESENT ILLNESS: The patient is a 79 y.o. male with a PMHx of DM, CAD, recurrent bladder CIS who presents with grosshematuria. He is currently admitted with cellulitis and abscess of his right foot, s/p multiple I&Ds. His most recent cystoscopy/bladder bx was 09/02/[address] Murray, pathology with CIS and high grade papillary urothelial carcinoma. He completed two BCG treatments, but was lost to follow up. He did have a positive urine FISH and cytology 02/2024 and a cystoscopy, bladder biopsy was ordered but not scheduled. Patient's son reports he was having other health issues. Labs during admission withnormal Cr, last CBC with stable H&H, no UA has been sent. On exam he reports feeling well, denies dysuria, frequency, or urgency. He reports GH started intermittently after restarting anticoagulation while inpatient. Past Medical History: Diagnosis Date Adjustment disorder with depressed mood 08/29/2017 Ambulates with cane for balance Arthritis Bladder problem CANCER CAD (coronary artery disease) Echo 07/21/2015: LVEF 60-65%. Abnormal septal motion (septal bounce). Mild pulmonic regurgitation. Cancer (HCC) BLADDER Diabetes mellitus (HCC) PERLA (dyspnea on exertion) Former smoker 01/07/2013 Full dentures H/O hematuria s/p L iliac stenting; admitted Heart murmur Heartburn Hypertension GXT 07/21/2015: LVEF 70%. Normal LV perfusion study. There is no pharmacologically provoked ischemia. Preserved LV systolic funtion. Preserved right ventricular function. Major depressive disorder, single episode, severe (HCC) 08/29/2017 Neuromuscular disorder ([facility]) NEUROPATHY Osteoarthritis PAD (peripheral artery disease) Peripheral vascular disease Toe infection 05/04/2018 left middle toe infection, on Keflex for this, instructed to call Dr Berger prior to surgery Wears glasses Past Surgical History: Procedure Laterality Date BLADDER TUMOR EXCISION N/A 09/02/2023 CYSTOSCOPY, SMALL TRANSURETHRAL RESECTION OF BLADDER TUMOR, FULGERATION OF BLADDER; Surgeon: Naman Murray MD; Location: [facility] MAIN OR; Service: Urology CATARACT REMOVAL Right 05/10/2018 RIGHT EYE CATARACT EXTRACTION WITH PHACOEMULSIFICATION AND INTRAOCULAR LENS; Surgeon: Naman Berger MD; Location: [facility]; Service: Ophthalmology CATARACT REMOVAL Left 05/24/2018 LEFT EYE CATARACT EXTRACTION WITH PHACOEMULSIFICATION AND INTRAOCULAR LENS; Surgeon: Naman Berger MD; Location: [facility]; Service: Ophthalmology CIRCUMCISION 2018 CORONARY ANGIOPLASTY WITH STENT PLACEMENT 2002 stents x 3 DEBRIDEMENT 10/14/2024 Surgeon: Grupo Kruger DPM; Location: [facility] MAIN OR; Service: Podiatry DENTAL SURGERY Full dentures FOOT SURGERY Right 10/14/2024 INCISION, DRAINAGE and debridement right foot and leg; Surgeon: Grupo Kruger DPM; Location: [facility]IN OR; Service: Podiatry ILIO-FEMORAL BYPASS GRAFT Left 08/24/2023 left iliac stent placement IR ABDOMINAL AORTOGRAM SERIALOGRAM 08/29/2017 IR ABDOMINAL AORTOGRAM SERIALOGRAM 08/29/2017 Elvis Morgan MD [facility] IR IR ANGIOGRAM EXTREMITY BILATERAL 08/29/2017 IR ANGIOGRAM EXTREMITY BILATERAL 08/29/2017 Elvis Morgan MD [facility] IR FLUOROSCOPY GUIDED CENTRAL VENOUS ACCESS DEVICE PLACEMENT 09/05/2017 IR FLUOROSCOPY GUIDED CENTRAL VENOUS ACCESS DEVICE PLACEMENT 09/05/2017 Lata Vivar PA-C [facility] IR REVAS FEM POP ART UNILAT W MERCERIZING RANGE FEEDER 08/29/2017 IR REVAS FEM POP ART UNILAT W MERCERIZING RANGE FEEDER 08/29/2017 Elvis Morgan MD [facility] IR TUNNEL CATHETER REMOVAL WITHOUT IMAGING 10/12/2017 IR TUNNEL CATHETER REMOVAL WITHOUT IMAGING 10/12/2017 Lata Vivar PA-C [facility] IR IR TUNNELED PICC LINE 09/08/2017 IR TUNNELED PICC LINE 09/08/2017 Marika Villa PA [facility] IR ULTRASOUND GUIDED VASCULAR ACCESS 09/05/2017 IR ULTRASOUND GUIDED VASCULAR ACCESS 09/05/2017 Lata Vivar PA-C [facility] IR TOE AMPUTATION Left 08/30/2017 INCISION AND DRAINAGE WITH AMPUTATION LEFT HALLUX ; Surgeon: Sandra Rubi DPM; Location: [facility] OR; Service: Podiatry TOE AMPUTATION Left 07/24/2018 AMPUTATION LEFT SECOND TOE; Surgeon: Grupo Kruger DPM; Location: [facility]IN OR; Service: Podiatry Medications: Scheduled Meds: amLODIPine 5 mg Oral BID aspirin 81 mg Oral Daily atorvastatin 40 mg Oral Nightly cephALEXin 500 mg Oral 4 times per day clopidogreL 75 mg Oral Daily doxycycline hyclate 100 mg Oral 2 times per day enoxaparin 40 mg Subcutaneous Daily - LMWH/Xa insulin aspart U-100 1-15 Units Subcutaneous QID WM insulin aspart (NovoLOG) Nutritional (prandial) insulin (Orderable) 3 Units Subcutaneous TID WM insulin glargine U-100 40 Units Subcutaneous QPM (Insulin) isosorbide mononitrate 30 mg Oral Nightly lisinopriL 20 mg Oral Daily metoprolol 50 mg Oral BID miconazole Topical BID morphine 45 mg Oral 2 times per day pregabalin 300 mg Oral BID sodium chloride 0.9% Intravenous 2 times per day Continuous Infusions: sodium chloride 0.9 % 100 mL/hr at 10/23/24 0858 PRN Meds:.acetaminophen, dextrose, diphenhydrAMINE, glucagon AND sterile water, hydrALAZINE, morphine, ondansetron, oxyCODONE-acetaminophen, sodium chloride 0.9%, sodium chloride 0.9% No Known Allergies Social reports that he has been smoking cigars and cigarettes. He started smoking about 62 years ago. He has a 40.6 pack-year smoking history. He has never used smokeless tobacco. He reports that he does not drink alcohol and does not use drugs. Family History Problem Relation Age of Onset Coronary Art Dis Father 50 approx Cancer Father Heart Disease Father Stroke Mother Cancer Sister Pancreatic Anesth Problems Neg Hx REVIEW OF SYSTEMS: A comprehensive review of systems was negative., except for the above noted system information in the History of presenting illness. VITALS: Vitals: 10/23/24 0516 10/23/24 0854 10/23/24 0857 10/23/24 1208 BP: (!) 121/36 122/48 114/44 BP Location: Left arm Left arm Patient Position: Lying left side Semi Fowlers Pulse: 52 54 56 Resp: 16 18 Temp: 97.7 ??F (36.5 ??C) TempSrc: Oral SpO2: 95% 93% Weight: Height: Physical Examination: General appearance - well appearing and in no distress Mental status - alert, oriented to person, place, and time Eyes - left eye normal, right eye normal Ears - hearing grossly normal bilaterally Nose - normal and patent Mouth - mucous membranes moist Neck - supple Chest - breathing comfortably, no grossly audible wheezes, rales or rhonchi, symmetric air entry, no tachypnea, retractions or cyanosis Heart - normal rate and regular rhythm by peripheral palpitation Abdomen - soft, nontender, nondistended, no masses or organomegaly, no bladder distension noted Male - PureWick with clear red urine Back exam - no tenderness, palpable spasm or pain on motion Neurological - alert, oriented, normal speech, no focal findings or movement disorder noted Musculoskeletal - no joint tenderness Skin - n no rashes DATA: CBC: Lab Results Component Value Date WBC 5.9 10/15/2024 RBC 5.03 10/15/2024 HGB 14.5 10/15/2024 HCT 43.6 10/15/2024 MCV 86.7 10/15/2024 MCHC 33.3 10/15/2024 RDW 15.0 (H) 10/15/2024 PLT 172 10/15/2024 MPV 10.5 10/15/2024 BMP: Lab Results Component Value Date NA 136 10/19/2024 K 4.5 10/19/2024 CL 102 10/19/2024 CO2 25 10/19/2024 BUN 18 10/19/2024 CREATININE 0.69 10/19/2024 CALCIUM 9.3 10/19/2024 GLU 179 (H) 10/19/2024 No results found for: SPECGRAV , UAPROTEIN , BLOODU , NITRITE , LEUKOCYTESUR , WBCUA , RBCUA UA POC: No results found for: UACOLORPOC , UAAPPEARPOC , UAGLUCPOC , UAKETONESPOC , UABLOODPOC , UAPHPOC , UAPROTEINPOC , UALEUKESTPOC , UASGPOC No results found. No results found for: PSA IMPRESSION/RECOMMENDATIONS: Active Hospital Problems Diagnosis *Cellulitis and abscess of foot, except toes Minor neurocognitive disorder Tobacco abuse DNR (do not resuscitate) 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 2 diabetes mellitus, 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 necrosis (HCC) Diabetic leg ulcer (HCC) Diabetic foot infection (HCC) Malignant neoplasm of urinary bladder (HCC) Diabetic polyneuropathy associated with type 2 diabetes mellitus (HCC) Major depressive disorder, single episode, severe (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 PAD (peripheral artery disease) Essential hypertension Diabetes mellitus type 2 in nonobese (HCC) CAD in unga artery Gross Hematuria Recurrent bladder cancer S/P angioplasty on 10/22/24, anticoagulated on lovenox, ASA and plavix He is on Keflex for foot cellulitis Bladder scans to ensure complete emptying Clean catch UA with reflex to culture RBUS ordered Follow H&H - CBC ordered for tomorrow morning Thank you for asking me to see your patient. Jacqueline Jordan APRN 10/23/2024 12:22 PM Cosigned by Naman Murray MD at 10/23/2024 2:07 PM EDT Associated attestation - Naman Murray MD - 10/23/2024 2:07 PM EDT Chart Reviewed and I agree with Jacqueline GONZALEZ's Assessment and Plan. Will add US of bladder * Elvis Morgan MD - 10/15/2024 2:09 PM EDTAssociated Order(s): IP CONSULT TO VASCULAR SURGERY Images from the original note were not included. Name: Lopez Aquino ADDRESS: [place] [id number] : 1945 AGE: 79 y.o. Hospital: [facility] Requesting Attending: Dr. Parra Primary Care Physician: Beck Lazar MD Date of Admission: 10/12/2024 Date of Consultation: 10/15/2024 Admitting Diagnosis: Diabetic foot infection (HCC) Chief Complaint / Reason for Consult: PAD HISTORY OF PRESENT ILLNESS History of Presenting Illness: Lopez Aquino is a(n) 79 y.o. male with PMH significant for diabetes mellitus, arthritis, bladder cancer, major depressive disorder, hypertension and CAD. He is known to our vascular service for PAD status post LLE intervention in 2018 (refer to vascular surgery history below for full details). He had a left BRYON stent on 08/24/23 at [facility] (records are not available for review). Post-stenting he was placed on Plavix and aspirin, but Plavix discontinued due to hematuria. The patient presented to the ER on 10/12 for worsening diabetic foot ulcers. X- ray of the right tibia/fibula showed no acute osseous abnormality. Bilateral foot X-rays showed small amount of subcutaneous gas in the dorsum of the right foot. He underwent incision and drainage of right foot abscess byPodiatry (Dr. Kruger) on 10/14. Vascular Surgery was consulted for further evaluation. BLE arterial duplex showed significant arterial atherosclerosis noted throughout the right lower extremity. There is evidence of severe diffuse arterial disease throughout the right lower extremity. Difficult to image and doppler making it difficult to determine stenosis/occlusions. Right proximal anterior tibial artery was imaged with monophasic flow; unable to visualize mid to distal due to dressings Right DPA was obtained; vessel is non-compressible. Right 1st digit is absent. Monophasic Doppler flow pattern is noted throughout the right lower extremity. Arterial atherosclerosis noted throughout the left lower extremity. Evidence of moderate left lower extremity arterial disease demonstrated. Biphasic Doppler flow pattern is noted in the common femoral, femoral and popliteal arteries of the left lower extremity. Monophasic Doppler flow pattern is noted throughout the tibial arteries of the left lower extremity. Left MC is MERCERIZING RANGE FEEDER 0.98 and DPA 0.84. 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 No color flow/spectral Doppler with intraluminal plaque noted throughout the left anterior tibial artery consistent with a total occlusion. Vascular Surgery History: 08/24/2023 - L BRYON stenting ([facility]) 08/29/2017 - LE angio with angio of the left MERCERIZING RANGE FEEDER, peroneal artery and SFA (Dr. Morgan) REVIEW OF SYSTEMS Review of Systems: The following systems were reviewed and revealed the following in addition to any already discussedin the HPI: Constitutional: No additional concerns noted Eyes: No additional concerns HENT: No additional concerns noted Respiratory: No additional concerns noted Cardiovascular: No additional concerns noted Gastrointestinal: No additional concerns noted Genitourinary: No additional concerns noted Musculoskeletal: No additional concerns noted Integumentary: No additional concerns noted Hematology / Lymphatics: No additional concerns Endocrine: No additional concerns noted Allergy / Immunology: No additional concerns noted Neuro / Psych: No additional concerns noted MEDICAL HISTORY Medications Medications Prior to Admission Medication Sig Dispense Refill Last Dose/Taking amLODIPine (NORVASC) 5 mg Oral Tablet Take 1 Tab by mouth 2 times daily. 60 Tab 0 10/12/2024 at 9:00AM aspirin 81 mg Oral Tablet, Chewable Take by mouth daily (with breakfast). 10/12/2024 at 9:00 AM atorvastatin (LIPITOR) 40 mg Oral Tablet Take 1 Tab by mouth daily. 30 Tab 0 10/11/2024 Bedtime cilostazoL (PLETAL) 50 mg Oral Tablet Take 50 mg by mouth 2 times daily. 10/12/2024 at 2:00 PM insulin glargine U-100 (LANTUS) 100 unit/mL SubQ Solution Subcutaneous (Inject under the skin) 10 Units every evening. 10 mL 10/11/2024 Bedtime isosorbide mononitrate (IMDUR) 30 mg Oral Tablet Sustained Release 24 hr Take 30 mg by mouth every morning. 10/12/2024 at 7:00 PM lisinopriL (PRINIVIL;ZESTRIL) 10 mg Oral Tablet Take 10 mg by mouth daily. 10/12/2024 at 9:00 AM metFORMIN (GLUCOPHAGE) 500 mg tablet Take 500 mg by mouth 3 times daily. 10/12/2024 at 2:00 PM metoprolol (LOPRESSOR) 25 mg tablet Take 50 mg by mouth 2 times daily. 10/12/2024 at 5:00 PM mirabegron (MYRBETRIQ) 25 mg Oral Tablet Sustained Release 24 hr Take 1 Tablet by mouth daily. 30 Tablet 0 10/12/2024 at 5:00 PM morphine (MSIR) 15 mg Oral Tablet Take 15 mg by mouth 2 times daily. 10/12/2024 at 5:00 PM oxyCODONE (ROXICODONE) 5 mg Oral Tablet Take 5 mg by mouth every 4 hours as needed for Chronic Pain(G89.29). 10/11/2024 at 9:00 AM pregabalin (LYRICA) 150 mg Oral Capsule Take 150 mg by mouth 2 times daily. 10/12/2024 at 7:00 PM acetaminophen (TYLENOL) 500 mg Oral Tablet Take 1 Tablet by mouth every 4 hours as needed for Pain.(Patient not taking: Reported on 10/12/2024) Not Taking CINNAMON BARK (CINNAMON ORAL) Take 2,000 mg by mouth daily. (Patient not taking: Reported on 08/31/2023) Unknown cyanocobalamin 1,000 mcg Oral Tablet Take 1 Tablet by mouth daily. (Patient not taking: Reported on10/12/2024) 90 Tablet 0 Not Taking diclofenac (VOLTAREN) 1 % Top Gel Apply 2 g topically 2 times daily. (Patient taking differently: Apply 2 g topically as needed.) Unknown ferrous sulfate 325 mg (65 mg iron) Oral Tablet Take 1 Tablet by mouth daily. (Patient not taking: Reported on 10/12/2024) 90 Tablet 0 Not Taking insulin lispro (HUMALOG U-100 INSULIN) 100 unit/mL SubQ Solution Subcutaneous (Inject under the skin) 10-12 Units 3 times daily (before meals). (Patient not taking: Reported on 10/12/2024) Not Taking Lancets Misc Misc Lancet 100, meter 1, strips 100 of insurance choice 1 box 0 Unknown LEVEMIR FLEXPEN 100 unit/mL (3 mL) SubQ Insulin Pen Subcutaneous (Inject under the skin) 50 Units every evening. Unknown nitroGLYCERIN (NITROSTAT) 0.[address] 1 Tab under the tongue every 5 minutes as needed for Chest pain for 3 doses. (Patient not taking: Reported on 10/12/2024) 50 Tab 2 Not Taking tamsulosin (FLOMAX) 0.4 mg Oral Capsule Take 1 Capsule by mouth nightly. (Patient not taking: Reported on 10/12/2024) 30 Capsule 0 Not Taking Current Facility-Administered Medications Medication Dose Route Frequency Provider Last Rate Last Admin acetaminophen (TYLENOL) tablet 650 mg 650 mg Oral Q4H PRN Grupo Kruger DPM amLODIPine (NORVASC) tablet 5 mg 5 mg Oral BID Grupo Kruger DPM 5 mg at 10/15/24 0905 atorvastatin (LIPITOR) tablet 40 mg 40 mg Oral Nightly Grupo Kruger DPM 40 mg at 10/14/24 2210 ceFEPIme (MAXIPIME) 1 g/50 mL IVPB 1 g Intravenous 3 times per day Grupo Kruger DPM Stopped at 10/15/24 0953 dextrose 50 % solution 25 mL 25 mL Intravenous PRN Grupo Kruger DPM diphenhydrAMINE (BENADRYL) injection 25 mg 25 mg Intravenous Q4H PRN Lindsey Winn APRN 25 mg at 10/14/24 2249 enoxaparin (LOVENOX) injection 40 mg 40 mg Subcutaneous Daily - LMWH/Xa Ahsan Parra Jr., MD glucagon (GLUCAGEN) injection 1 mg 1 mg Intramuscular PRN Grupo Kruger DPM And sterile water injection 1 mL 1 mL Injection PRN Grupo Kruger DPM hydrALAZINE (APRESOLINE) tablet 25 mg 25 mg Oral TID PRN Ahsan Parra Jr., MD insulin aspart U-100 (NovoLOG) injection 1-15 Units 1-15 Units Subcutaneous QID Noam Parra Jr., MD insulin glargine U-100 (LANTUS) injection 20 Units 20 Units Subcutaneous QPM (Insulin) Ahsan Parra Jr., MD isosorbide mononitrate (IMDUR) CR tablet 30 mg 30 mg Oral Nightly Grupo Kruger DPM 30 mg at 10/14/24 2210 lisinopriL (PRINIVIL;ZESTril) tablet 20 mg 20 mg Oral Daily Ahsan Parra Jr., MD 20 mg at 10/15/24 0905 metoprolol (LOPRESSOR) tablet 50 mg 50 mg Oral BID Grupo Kruger DPM 50 mg at 10/15/24 09 metroNIDAZOLE (FLAGYL) IVPB 500 mg 500 mg Intravenous 3 times per day Grupo Kruger DPM Stopped at 10/14/24 2255 miconazole (MICATIN) 2 % powder Topical BID Grupo Kruger DPM Given at 10/15/24 0900 morphine (MS CONTIN) CR tablet 45 mg 45 mg Oral 2 times per day Grupo Kruger DPM 45 mg at 10/15/24 0905 morphine injection 1-2 mg 1-2 mg Intravenous Q4H PRN Grupo Kruger DPM ondansetron (ZOFRAN) injection 4 mg 4 mg Intravenous Q4H PRN Grupo Kruger DPM oxyCODONE (ROXICODONE) immediate release tablet 5 mg 5 mg Oral Q4H PRN Grupo Kruger DPM pregabalin (LYRICA) capsule 300 mg 300 mg Oral BID Grupo Kruger DPM 300 mg at 10/15/24 0905 sodium chloride 0.9% IV line flush 20-50 mL 20-50 mL Intravenous PRN Ahsan Parra Jr., MD sodium chloride 0.9% syringe Intravenous 2 times per day Ahsan Parra Jr., MD 10 mL at 10/15/24 09 sodium chloride 0.9% syringe Intravenous PRN Ahsan Parra Jr., MD vancomycin in dextrose 5% (VANCOCIN) premix IVPB 1,500 mg 1,500 mg Intravenous Q18H Nuno Eaton MD Stopped at 10/14/24 1228 No Known Allergies Past Medical History: Diagnosis Date Adjustment disorder with depressed mood 08/29/2017 Ambulates with cane for balance Arthritis Bladder problem CANCER CAD (coronary artery disease) Echo 07/21/2015: LVEF 60-65%. Abnormal septal motion (septal bounce). Mild pulmonic regurgitation. Cancer (HCC) BLADDER Diabetes mellitus (HCC) PERLA (dyspnea on exertion) Former smoker 01/07/2013 Full dentures H/O hematuria s/p L iliac stenting; admitted Heart murmur Heartburn Hypertension GXT 07/21/2015: LVEF 70%. Normal LV perfusion study. There is no pharmacologically provoked ischemia. Preserved LV systolic funtion. Preserved right ventricular function. Major depressive disorder, single episode, severe (HCC) 08/29/2017 Neuromuscular disorder (HCC) NEUROPATHY Osteoarthritis PAD (peripheral artery disease) Peripheral vascular disease Toe infection 05/04/2018 left middle toe infection, on Keflex for this, instructed to call Dr Berger prior to surgery Wears glasses Past Surgical History: Procedure Laterality Date BLADDER TUMOR EXCISION N/A 09/02/2023 CYSTOSCOPY, SMALL TRANSURETHRAL RESECTION OF BLADDER TUMOR, FULGERATION OF BLADDER; Surgeon: Naman Murray MD; Location: [facility]; Service: Urology CATARACT REMOVAL Right 05/10/2018 RIGHT EYE CATARACT EXTRACTION WITH PHACOEMULSIFICATION AND INTRAOCULAR LENS; Surgeon: Naman Berger MD; Location: [facility]; Service: Ophthalmology CATARACT REMOVAL Left 05/24/2018 LEFT EYE CATARACT EXTRACTION WITH PHACOEMULSIFICATION AND INTRAOCULAR LENS; Surgeon: Naman Berger MD; Location: [facility]; Service: Ophthalmology CIRCUMCISION 2018 CORONARY ANGIOPLASTY WITH STENT PLACEMENT 2002 stents x 3 DENTAL SURGERY Full dentures ILIO-FEMORAL BYPASS GRAFT Left 08/24/2023 left iliac stent placement IR ABDOMINAL AORTOGRAM SERIALOGRAM 08/29/2017 IR ABDOMINAL AORTOGRAM SERIALOGRAM 08/29/2017 Elvis Morgan MD [facility] IR IR ANGIOGRAM EXTREMITY BILATERAL 08/29/2017 IR ANGIOGRAM EXTREMITY BILATERAL 08/29/2017 Elvis Morgan MD [facility] IR IR FLUOROSCOPY GUIDED CENTRAL VENOUS ACCESS DEVICE PLACEMENT 09/05/2017 IR FLUOROSCOPY GUIDED CENTRAL VENOUS ACCESS DEVICE PLACEMENT 09/05/2017 Lata Vivar PA-C [facility] IR IR REVAS FEM POP ART UNILAT W MERCERIZING RANGE FEEDER 08/29/2017 IR REVAS FEM POP ART UNILAT W MERCERIZING RANGE FEEDER 08/29/2017 Elvis Morgan MD [facility] IR IR TUNNEL CATHETER REMOVAL WITHOUT IMAGING 10/12/2017 IR TUNNEL CATHETER REMOVAL WITHOUT IMAGING 10/12/2017 Lata Vivar PA-C [facility] IR IR TUNNELED PICC LINE 09/08/2017 IR TUNNELED PICC LINE 09/08/2017 Marika Villa PA [facility] IR IR ULTRASOUND GUIDED VASCULAR ACCESS 09/05/2017 IR ULTRASOUND GUIDED VASCULAR ACCESS 09/05/2017 Lata Vivar PA-C [facility] IR TOE AMPUTATION Left 08/30/2017 INCISION AND DRAINAGE WITH AMPUTATION LEFT HALLUX ; Surgeon: Sandra Rubi DPM; Location: [facility]; Service: Podiatry TOE AMPUTATION Left 07/24/2018 AMPUTATION LEFT SECOND TOE; Surgeon: Grupo Kruger DPM; Location: [facility]; Service: Podiatry Family History Problem Relation Age of Onset Coronary Art Dis Father 50 approx Cancer Father Heart Disease Father Stroke Mother Cancer Sister Pancreatic Anesth Problems Neg Hx Social History: Social History Tobacco Use Smoking Status Every Day Current packs/day: 1.00 Average packs/day: 1 pack/day for 40.6 years (40.6 ttl pk-yrs) Types: Cigars, Cigarettes Start date: 1962 Last attempt to quit: 1989 Smokeless Tobacco Never Tobacco Comments Cigarettes-quit 2001 but still smokes cigars PHYSICAL EXAMINATION Physical Examination Patient Vitals for the past 24 hrs: BP Temp Temp src Pulse Resp SpO2 10/15/24 0903 140/65 98.2 ??F (36.8 ??C) Oral 65 16 96 % 10/15/24 0550 145/64 98.6 ??F (37 ??C) Oral 63 16 96 % 10/14/24 2100 160/73 98.2 ??F (36.8 ??C) Oral 66 16 94 % 10/14/24 1529 145/65 98 ??F (36.7 ??C) Oral 60 16 92 % General: Patient appears comfortable in no apparent distress. Skin: Pics in media reviewed as seen below: RLE R foot Left foot R foot LLE Head: NC/AT Eyes: Anicteric sclerae. ENT: Face is symmetrical. Neck: No tracheal deviation Lungs: Effort normal Cardiac: RRR Abdomen: Abdomen is soft, non-tender. Vascular Pulse Exam: (Difficult due to body habitus, sitting up in a motorized scooter and wearing sweat pants) R radial +2 L radial +2 R femoral L femoral R popliteal L popliteal R posterior tibial dressing L posterior tibial R dorsalis pedis dressing L dorsalis pedis Back: No kyphosis noted : not examined Lymphadenopathy: not examined Musculoskeletal: moves all extremities Extremities: No lower extremity edema. L groin dressing removed. Neurological: alert and oriented. LABS AND RADIOLOGY Laboratory: CBC: Lab Results Component Value Date WBC 5.9 10/15/2024 RBC 5.03 10/15/2024 HGB 14.5 10/15/2024 HCT 43.6 10/15/2024 MCV 86.7 10/15/2024 MCHC 33.3 10/15/2024 RDW 15.0 (H) 10/15/2024 PLT 172 10/15/2024 MPV 10.5 10/15/2024 BMP: Lab Results Component Value Date NA 133 (L) 10/15/2024 K 4.6 10/15/2024 CL 98 10/15/2024 CO2 24 10/15/2024 BUN 11 10/15/2024 CREATININE 0.55 (L) 10/15/2024 CALCIUM 9.1 10/15/2024 GLU 306 (H) 10/15/2024 Radiology: MS US LOWER EXTREMITY ARTERIAL DUPLEX COMPLETE Result Date: 10/14/2024 Conclusions * Significant arterial atherosclerosis noted throughout the right lower extremity. * Evidence of severe diffuse arterial disease throughout the right lower extremity. Difficult to image and doppler making it difficult to determine stenosis/occlusions. * Right proximal anterior tibial artery was imaged with monophasic flow; unable to visualize mid to distal due to dressings. * Right DPA was obtained; vessel is non-compressible. * Right 1st digit is absent. * Monophasic Doppler flow pattern is noted throughout the right lower extremity. * Arterial atherosclerosis noted throughout the left lower extremity. * Evidence of moderate left lower extremity arterial disease demonstrated. * Biphasic Doppler flow pattern is noted in the common femoral, femoral and popliteal arteries of theleft lower extremity. * Monophasic Doppler flow pattern is noted throughout the tibial arteries of the left lower extremity. * Left MC is MERCERIZING RANGE FEEDER 0.98 and DPA 0.84. 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 * No color flow/spectral Doppler with intraluminal plaque noted throughout the left anterior tibial artery consistent with a total occlusion. MEDICAL DECISION MAKING Assessment: PAD with bilateral diabetic foot ulcers S/p I&D right foot abscess by Podiatry on 10/14 Hx L BRYON stenting on 08/24/2023 Hypertension CAD hx stents Diabetes mellitus Bladder cancer Chronic pain syndrome Recommendations: No immediate plans for vascular intervention. Ok to resume previous diet if cleared by other specialist. Continue ABX. Wound care per Podiatry recommendations. Dr. Morgan will review the images of the BLE arterial duplex with further recommendations to follow. May need to consider CT angiogram of the aorta with runoff vs LE angiogram with intervention duringthis admission. Continue statin. Consider starting bASA Thank you for including us in the care of your patient. I will follow Lopez Aquino with you during this hospitalization. Time spent reviewing chart, discussing plan/answering questions of family, and at the bedside examining patient: 45 minutes Signed: Sal Daniel PA-C 10/15/2024 2:10 PM Physician Documentation: I independently evaluated the patient, performed a physical examination, and review of the history,labs and medications. I reviewed the findings of the physician assistant chief of police/nurse practitioner and discussed the case in detail. Below is a summary of my pertinent independent evaluation and findings inaddition to the assessment and plan formulated by the physician assistant chief of police/nurse practitioner. Patient seen examined. Patient with history of lower extremity PAD who presented with nonhealing right lower EXTR ulceration. On examination patient's right foot is wrapped with bandage. Patient's arterial study reviewed. Revealed diffuse lower extremity disease. I recommend angiogram with intervention to improve lower EXTR perfusion. Patient however would like to wait to see if the wound will heal. Will continue local wound care. ELVIS MORGAN MD, FACS This note was completed using voice recognition technology. Despite the video game script writer's best efforts to proof read, it may still contain unintended errors. Please call with questions. * Grupo Kruger DPM - 10/13/2024 12:31 PM EDT Images from the original note were not included. Name: Lopez Aquino Consults SEP Podiatric Surgery Assessment: Infected diabetic foot ulcer right dorsal midfoot. No fluctuance, no soft tissue crepitus, scant expressible pus. Possible air/decrease in soft tissue density viewed on the dorsum of the foot on the lateral x-ray most likely represents diabetic foot ulcer. No signs of necrotizing fasciitis or gas. Stable diabetic ulcer right anterior leg. Plan: Needs incision and drainage and debridement right dorsal midfoot ulcer and right anterior leg ulcer. Discussed procedure, postop course, potential benefits and risks, all questions answered, no guarantees made toward healing and resolution of infection - patient agreeable. Scheduled for tomorrow. Check arterial studies as well. CC: This is a 79-year-old male. He has had a several month history of an ulcer to the dorsum of the right foot and his right anterior leg. He has been following with wound care apparently in [facility]. He and his partner care who was in the room during the exam, relate a recent vascular intervention with angioplasty without stenting. Recently right foot ulcer became red, swollen with increased drainage. PCP:Beck Lazar MD Past Medical History: Diagnosis Date Adjustment disorder with depressed mood 08/29/2017 Ambulates with cane for balance Arthritis Bladder problem CANCER CAD (coronary artery disease) Echo 07/21/2015: LVEF 60-65%. Abnormal septal motion (septal bounce). Mild pulmonic regurgitation. Cancer (HCC) BLADDER Diabetes mellitus (HCC) PERLA (dyspnea on exertion) Former smoker 01/07/2013 Full dentures H/O hematuria s/p L iliac stenting; admitted Heart murmur Heartburn Hypertension GXT 07/21/2015: LVEF 70%. Normal LV perfusion study. There is no pharmacologically provoked ischemia. Preserved LV systolic funtion. Preserved right ventricular function. Major depressive disorder, single episode, severe (HCC) 08/29/2017 Neuromuscular disorder (HCC) NEUROPATHY Osteoarthritis PAD (peripheral artery disease) Peripheral vascular disease Toe infection 05/04/2018 left middle toe infection, on Keflex for this, instructed to call Dr Berger prior to surgery Wears glasses Past Surgical History: Procedure Laterality Date BLADDER TUMOR EXCISION N/A 09/02/2023 CYSTOSCOPY, SMALL TRANSURETHRAL RESECTION OF BLADDER TUMOR, FULGERATION OF BLADDER; Surgeon: Naman Murray MD; [facility]; Service: Urology CATARACT REMOVAL Right 05/10/2018 RIGHT EYE CATARACT EXTRACTION WITH PHACOEMULSIFICATION AND INTRAOCULAR LENS; Surgeon: Naman Berger MD; Location: [facility]; Service: Ophthalmology CATARACT REMOVAL Left 05/24/2018 LEFT EYE CATARACT EXTRACTION WITH PHACOEMULSIFICATION AND INTRAOCULAR LENS; Surgeon: Naman Berger MD; Location: [facility]; Service: Ophthalmology CIRCUMCISION 2018 CORONARY ANGIOPLASTY WITH STENT PLACEMENT 2002 stents x 3 DENTAL SURGERY Full dentures ILIO-FEMORAL BYPASS GRAFT Left 08/24/2023 left iliac stent placement IR ABDOMINAL AORTOGRAM SERIALOGRAM 08/29/2017 IR ABDOMINAL AORTOGRAM SERIALOGRAM 08/29/2017 Elvis Morgan MD [facility] IR IR ANGIOGRAM EXTREMITY BILATERAL 08/29/2017 IR ANGIOGRAM EXTREMITY BILATERAL 08/29/2017 Elvis Morgan MD [facility] IR FLUOROSCOPY GUIDED CENTRAL VENOUS ACCESS DEVICE PLACEMENT 09/05/2017 IR FLUOROSCOPY GUIDED CENTRAL VENOUS ACCESS DEVICE PLACEMENT 09/05/2017 Lata Vivar PA-C [facility] IR REVAS FEM POP ART UNILAT W MERCERIZING RANGE FEEDER 08/29/2017 IR REVAS FEM POP ART UNILAT W MERCERIZING RANGE FEEDER 08/29/2017 Elvis Morgan MD [facility] IR IR TUNNEL CATHETER REMOVAL WITHOUT IMAGING 10/12/2017 IR TUNNEL CATHETER REMOVAL WITHOUT IMAGING 10/12/2017 Lata Vivar PA-C [facility] IR IR TUNNELED PICC LINE 09/08/2017 IR TUNNELED PICC LINE 09/08/2017 Marika Villa PA [facility] IR ULTRASOUND GUIDED VASCULAR ACCESS 09/05/2017 IR ULTRASOUND GUIDED VASCULAR ACCESS 09/05/2017 Lata Vivar PA-C [facility] IR TOE AMPUTATION Left 08/30/2017 INCISION AND DRAINAGE WITH AMPUTATION LEFT HALLUX ; Surgeon: Sandra Rubi DPM; Location: [facility]; Service: Podiatry TOE AMPUTATION Left 07/24/2018 AMPUTATION LEFT SECOND TOE; Surgeon: Grupo Kruger DPM; Location: [facility]; Service: Podiatry Family History Problem Relation Age of Onset Coronary Art Dis Father 50 approx Cancer Father Heart Disease Father Stroke Mother Cancer Sister Pancreatic Anesth Problems Neg Hx Social History Socioeconomic History Marital status: Single Spouse name: None Number of children: None Years of education: None Highest education level: None Tobacco Use Smoking status: Every Day Current packs/day: 1.00 Average packs/day: 1 pack/day for 40.6 years (40.6 ttl pk-yrs) Types: Cigars, Cigarettes Start date: 1962 Last attempt to quit: 1989 Smokeless tobacco: Never Tobacco comments: Cigarettes-quit 2001 but still smokes cigars Vaping Use Vaping status: Never Used Substance and Sexual Activity Alcohol use: No Drug use: No Social Drivers of Health Financial Resource Strain: Low Risk (08/26/2023) Overall Financial Resource Strain (CARDIA) Difficulty of Paying Living Expenses: Not hard at all Food Insecurity: No Food Insecurity (08/26/2023) Hunger Vital Sign Worried About Running Out of Food in the Last Year: Never true Ran Out of Food in the Last Year: Never true Transportation Needs: No Transportation Needs (08/26/2023) [facility] IP Transportation In the past 12 months, has lack of reliable transportation kept you from medical appointments, meetings, work or from getting things needed for daily living?: No Physical Activity: Inactive (08/26/2023) Exercise Vital Sign Days of Exercise per Week: 0 days Minutes of Exercise per Session: 0 min Stress: No Stress Concern Present (08/26/2023) [place] [employer] - Occupational Stress Questionnaire Feeling of Stress : Not at all ROS Vitals: 10/12/24 2321 10/13/24 0113 10/13/24 0333 10/13/24 0949 BP: 145/64 142/54 145/63 BP Location: Right arm Right arm Right arm Patient Position: Semi Fowlers Semi Fowlers Semi Fowlers Pulse: 76 66 Resp: 18 18 Temp: 98.3 ??F (36.8 ??C) 98.2 ??F (36.8 ??C) TempSrc: Forehead Oral SpO2: 98% 97% Weight: 213 lb 8 oz (96.8 kg) Height: 6' (1.829 m) Physical Exam Alert, oriented. Vascular exam: DP and PT pulses are nonpalpable bilateral. His right foot is warm and pink with brisk cap refill. Neurological exam: Absent protective pin sensation to both feet. Dermatological exam: Full-thickness ulcer to the dorsum of the right foot with surrounding swelling and erythema and increased temperature. No fluctuance. Scant expressible purulence. Stable, cross covered ulcer to the anterior right leg. Lab and radiographic data reviewed. Thank you for asking me to participate in your patient's care. Grupo Kruger DPM SEP Podiatric Surgery 10/13/2024 documented in this encounter ED Notes * Nuno Eaton MD - 10/12/2024 4:15 PM EDT Images from the original note were not included. [facility] EMERGENCY DEPARTMENT ENCOUNTER Pt Name: Lopez Aquino Birthdate 1945 Date of evaluation: 10/12/2024 CHIEF COMPLAINT Chief Complaint Patient presents with Wound Check Patient to triage with sores on feet that per son look infected. Patient diabetic Nurses Notes reviewed and I agree except as noted in the HPI. HISTORY OF PRESENT ILLNESS Lopez Aquino is a 79 y.o. male who presents for evaluation. History from patient and son. This is an individual that apparently had a cardiac cath at [facility] but I am not able to get those records and was discharged a day or 2 ago and he has a sore on the dorsum of his right foot that he said for years but now it is red and swollen in the left leg is getting that way too. He denies fevers or any kind of symptoms consistent with an acute infectious process. He does have neuropathy. He does have diabetes and sounds like it is poorly controlled. REVIEW OF SYSTEMS Review of Systems No fevers, vomiting, lethargy, anorexia, cough, chills All other review of systems are reviewed andare negative PAST MEDICAL HISTORY Past Medical History: Diagnosis Date Adjustment disorder with depressed mood 08/29/2017 Ambulates with cane for balance Arthritis Bladder problem CANCER CAD (coronary artery disease) Echo 07/21/2015: LVEF 60-65%. Abnormal septal motion (septal bounce). Mild pulmonic regurgitation. Cancer (HCC) BLADDER Diabetes mellitus (HCC) PERLA (dyspnea on exertion) Former smoker 01/07/2013 Full dentures H/O hematuria s/p L iliac stenting; admitted Heart murmur Heartburn Hypertension GXT 07/21/2015: LVEF 70%. Normal LV perfusion study. There is no pharmacologically provoked ischemia. Preserved LV systolic funtion. Preserved right ventricular function. Major depressive disorder, single episode, severe (HCC) 08/29/2017 Neuromuscular disorder ([facility]) NEUROPATHY Osteoarthritis PAD (peripheral artery disease) Peripheral vascular disease Toe infection 05/04/2018 left middle toe infection, on Keflex for this, instructed to call Dr Berger prior to surgery Wears glasses SURGICAL HISTORY has a past surgical history that includes Coronary angioplasty with stent (2001); Circumcision (2017); Toe amputation (Left, 08/30/2017); INTERVENTIONAL RADIOLOGY ABDOMINAL AORTOGRAM SERIALOGRAM (08/29/2017); INTERVENTIONAL RADIOLOGY ANGIOGRAM EXTREMITY BILATERAL (08/29/2017); INTERVENTIONAL RADIOLOGY REVASCULARIZATION FEMORAL POPLITEAL ARTERIAL UNILATERAL WITH PERCUTANEOUS TRANSLUMINAL ANGIOPLASTY (08/29/2017); INTERVENTIONAL RADIOLOGY FLUOROSCOPY GUIDED CENTRAL VENOUS ACCESS DEVICE PLACEMENT (09/05/2017); INTERVENTIONAL RADIOLOGY ULTRASOUND GUIDED VASCULAR ACCESS (09/05/2017); INTERVENTIONAL RADIOLOGY TUNNELED PERIPHERALLY INSERTED CENTRAL CATHETER (09/08/2017); INTERVENTIONAL RADIOLOGY TUNNEL CATHETER REMOVAL WITHOUT IMAGING (10/12/2017); Dental surgery; Cataract removal (Right, 05/10/2018); Cataract removal (Left, 05/24/2018); Toe amputation (Left, 07/24/2018); Ilio-femoral Bypass Graft (Left, 08/24/2023); and bladder tumor excision (N/A, 09/02/2023). CURRENT MEDICATIONS Current Facility-Administered Medications: sodium chloride 0.9% IV line flush 50 mL, 50 mL, Intravenous, PRN, Nuno Eaton MD sodium chloride 0.9% syringe 5-10 mL, 5-10 mL, Intravenous, PRN, Nuno Eaton MD Current Outpatient Medications: acetaminophen (TYLENOL) 500 mg Oral Tablet, Take 1 Tablet by mouth every 4 hours as needed for Pain., Disp: , Rfl: amLODIPine (NORVASC) 5 mg Oral Tablet, Take 1 Tab by mouth 2 times daily., Disp: 60 Tab, Rfl: 0 aspirin 81 mg Oral Tablet, Chewable, Take by mouth daily (with breakfast)., Disp: , Rfl: atorvastatin (LIPITOR) 40 mg Oral Tablet, Take 1 Tab by mouth daily., Disp: 30 Tab, Rfl: 0 cilostazoL (PLETAL) 50 mg Oral Tablet, Take 50 mg by mouth 2 times daily., Disp: , Rfl: CINNAMON BARK (CINNAMON ORAL), Take 2,000 mg by mouth daily. (Patient not taking: Reported on 08/31/2023), Disp: , Rfl: cyanocobalamin 1,000 mcg Oral Tablet, Take 1 Tablet by mouth daily., Disp: 90 Tablet, Rfl: 0 diclofenac (VOLTAREN) 1 % Top Gel, Apply 2 g topically 2 times daily. (Patient taking differently: Apply 2 g topically as needed.), Disp: , Rfl: ferrous sulfate 325 mg (65 mg iron) Oral Tablet, Take 1 Tablet by mouth daily., Disp: 90 Tablet, Rfl: 0 insulin glargine U-100 (LANTUS) 100 unit/mL SubQ Solution, Subcutaneous (Inject under the skin) 10 Units every evening., Disp: 10 mL, Rfl: insulin lispro (HUMALOG U-100 INSULIN) 100 unit/mL SubQ Solution, Subcutaneous (Inject under the skin) 10-12 Units 3 times daily (before meals)., Disp: , Rfl: isosorbide mononitrate (IMDUR) 30 mg Oral Tablet Sustained Release 24 hr, Take 30 mg by mouth everymorning., Disp: , Rfl: Lancets Misc Misc, Lancet 100, meter 1, strips 100 of insurance choice, Disp: 1 box, Rfl: 0 LEVEMIR FLEXPEN 100 unit/mL (3 mL) SubQ Insulin Pen, Subcutaneous (Inject under the skin) 50 Units every evening., Disp: , Rfl: lisinopriL (PRINIVIL;ZESTRIL) 10 mg Oral Tablet, Take 10 mg by mouth daily., Disp: , Rfl: metFORMIN (GLUCOPHAGE) 500 mg tablet, Take 500 mg by mouth 3 times daily., Disp: , Rfl: metoprolol (LOPRESSOR) 25 mg tablet, Take 50 mg by mouth 2 times daily., Disp: , Rfl: mirabegron (MYRBETRIQ) 25 mg Oral Tablet Sustained Release 24 hr, Take 1 Tablet by mouth daily., Disp: 30 Tablet, Rfl: 0 morphine (MSIR) 15 mg Oral Tablet, Take 15 mg by mouth 2 times daily., Disp: , Rfl: nitroGLYCERIN (NITROSTAT) 0.4 mg SL tablet, Place 1 Tab under the tongue every 5 minutes as needed for Chest pain for 3 doses., Disp: 50 Tab, Rfl: 2 oxyCODONE (ROXICODONE) 5 mg Oral Tablet, Take 5 mg by mouth every 4 hours as needed for Chronic Pain (G89.29)., Disp: , Rfl: pregabalin (LYRICA) 150 mg Oral Capsule, Take 150 mg by mouth 2 times daily., Disp: , Rfl: tamsulosin (FLOMAX) 0.4 mg Oral Capsule, Take 1 Capsule by mouth nightly., Disp: 30 Capsule, Rfl: 0 ALLERGIES No Known Allergies FAMILY HISTORY He indicated that his mother is . He indicated that his father is . He indicated that his sister is . He indicated that his maternal grandmother is . He indicated thathis maternal grandfather is . He indicated that his paternal grandmother is . He indicated that his paternal grandfather is . He indicated that the status of his neg hx is unknown. family history includes Cancer in his father and sister; Coronary Art Dis (age of onset: 50) in hisfather; Heart Disease in his father; Stroke in his mother. SOCIAL HISTORY reports that he has been smoking cigars and cigarettes. He started smoking about 62 years ago. He has a 40.6 pack-year smoking history. He has never used smokeless tobacco. He reports that he does not drink alcohol and does not use drugs. PHYSICAL EXAM INITIAL VITALS: oral temperature is 98.3 ??F (36.8 ??C). His blood pressure is 136/45 and his pulseis 69. His respiration is 18 and oxygen saturation is 94%. BP 136/45 (BP Location: Left arm, Patient Position: Sitting) Pulse 69 Temp 98.3 ??F (36.8 ??C) (Oral) Resp 18 SpO2 94% Nursing notes available at time of dictation and vitals reviewed and agree. Gen:Patient appears comfortable, age appropriate. No signs of photophobia in well-lit room. Nontoxic. Interacts with the examiner in a normal age appropriate fashion. Eyes: PERRL, nonicteric.EOMI. Conjunctiva appear well perfused. Head: Normocephalic and atraumatic Throat: Clear speech, moist mucous membranes, tongue midline. No elevation of floor of mouth. Neck: No significant neck adenopathy, trachea midline. Neck supple, no signs of meningismus. Lungs: Equal bilaterally. No signs no respiratory extremis. No rales, wheezes, rhonchi. Heart: normal rate and regular rhythm. No murmurs, gallops, or rubs. Abdomen: soft, nontender, nondistended. No hepatosplenomegaly. No pulsatile masses or abdominal bruit. Normal bowel sounds Abdomen without rebound, guarding, or signs of peritonitis. Nontender at Mcburney's point. No Roth sign. Skin: without rashes or any other lesions except for bilateral lower extremities. Neuro: No gross motor or sensory deficit. Extremities: Both feet are erythematous as well as the tib-fib region going up towards the knee. There is an ulcer and skin breakdown on the right foot and right leg respectively with no tenderness. The toes are swollen there. There are some missing toes from an amputation of the left foot and thatleg is red but less so. See image below. MEDICAL DECISION MAKING: Patient was screened for hypertension during this visit. If necessary, patient will be advised to follow-up with primary care for appropriate management. Based on history, physical exam, review of any appropriate laboratory and radiology studies and anyresponse to therapy patient is dealing with an infection of his bilateral feet particular the one on the right. There is subcutaneous gas on the dorsum of the right foot indicating a concerning infect ion. I will consult with podiatry. The patient has seen Dr. Kruger in the past and I will consult with him or whoever is covering for him. I will allow them to guide further therapy and have the patient admitted. Patient has remained hemodynamically stable. Return precautions have been given in both written and verbal form. Patient and family understand and agree with management and disposition. Please note that this chart was generated using Dragon Insideation software. DIAGNOSTIC RESULTS EKG: All EKG's are interpreted by the Emergency Department Physician who either signs or Co-signs this chart in the absence of a chlorinator. Monitor: Monitor was interpreted by me and shows: RADIOLOGY: non-plain film images(s) such as CT, Ultrasound and MRI are read by the radiologist. Plain radiographic images are visualized and preliminarily interpreted by the emergency physician unless otherwise stated below. XR FOOT BILATERAL AP AND LATERAL Final Result 1. Small amount of subcutaneous gas in the dorsum of the right foot. 2. No acute bony abnormality of the feet. 3. Diffuse osteopenia which limits evaluation for erosive changes. Given this limitation, no osseous erosion is identified. - Note: Radiology results need to be interpreted within a comprehensive clinical context. If you have questions about the radiology report, please contact the office of the ordering clinician. XR TIBIA FIBULA BILATERAL AP AND LATERAL Final Result No acute osseous abnormality. - Note: Radiology results need to be interpreted within a comprehensive clinical context. If you have questions about the radiology report, please contact the office of the ordering clinician. LABS: Labs Reviewed CBC WITH DIFF - Abnormal; Notable for the following components: Result Value RDW 15.8 (*) All other components within normal limits BASIC METABOLIC PANEL - Abnormal; Notable for the following components: Potassium 5.4 (*) Glucose Lvl 173 (*) All other components within normal limits LACTIC ACID - Abnormal; Notable for the following components: Lactic Acid 3.1 (*) All other components within normal limits BLOOD CULTURE (NO STAIN) BLOOD CULTURE (NO STAIN) PROCALCITONIN BLOOD GAS, VENOUS REPEAT LACTIC ACID EMERGENCY DEPARTMENT COURSE: Vitals: Vitals: 10/12/24 1617 10/12/24 1625 BP: 136/45 BP Location: Left arm Patient Position: Sitting Pulse: 70 69 Resp: 20 18 Temp: 98.3 ??F (36.8 ??C) TempSrc: Oral SpO2: 90% 94% CRITICAL CARE: CONSULTS: Hospitalist, Dr. Kruger PROCEDURES: None FINAL IMPRESSION 1. Diabetic foot infection (HCC) DISPOSITION/PLAN I have personally seen and examined this patient. I have fully participated in the care of this patient and I have reviewed and agree with all pertinent clinical information including history, physical exam, and plan. I have also reviewed and agree with the medications, allergies and past medical history section for this patient. Electronically signed by: Nuno Eaton MD, 10/12/2024 6:47 PM PATIENT REFERRED TO: No follow-up provider specified. DISCHARGE MEDICATIONS: New Prescriptions No medications on file Nuno Eaton MD There is a study being done through [facility] ([place] test panel), run by one of our IM doctors. Per hospital protocol, these are ordered on ED patients who elect to receive it. While, I may be required to cosign these orders according to hospital needs, the results and any necessary follow or treatment for these findings, are the sole responsibility of Dr Mcgarry. Nuno Eaton MD 10/12/241925 documented in this encounter Miscellaneous Notes * Utilization Review Notes - Jodi Smith RN - 10/23/2024 12:13 PM EDT Images from the original note were not included. IP ORDER IN EPIC CONT STAY REVIEW ON TCU LOS 10 DAYS PER MD NOTE PRE-OP DIAGNOSIS: R LE PAD with ulceration Assessment & Plan Cellulitis and abscess of foot, except toes 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 2 diabetes mellitus, 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 necrosis (HCC) Diabetic leg ulcer (HCC) WBC wnl at admit. ESR wnl. CRP 28.69 at admit. XR bilteral tib fib with no acute findings. XR bilateral feet with small amt of subcutaneous gas in dorsum of R foot, no acute bony findings - podiatry consulted - s/p I&D R dorsal foot abscess and ulcer; I&D R anterior ankle diabetic ulcer and abscess 10/14 - wound culture 10/14 growing MSSA - BCx x2 10/12 NGTD - arterial studies 10/14 with severe diffuse arterial disease throughout RLE, mod LLE arterial disease - closure pending vascular intervention - angiogram today - NPO - continue keflex, doxy PAD (peripheral artery disease) SP left common iliac artery stent 08/23 - vascular consulted - NPO - angiogram today - MERCERIZING RANGE FEEDER ASA, lipitor, pletal - arterial studies as above CC/SW FOLLOWING FOR DC NEEDS * Utilization Review Notes - Gema Ivy RN - 10/19/2024 11:17 AM EDT CONT'D STAY REVIEW ON 5C [facility] FOR Cellulitis and abscess of foot, PAD with bilateral diabetic foot ulcers, S/p I&D right foot abscess by Podiatry on 10/14/24, Hx L BRYON stenting on 08/24/2023; BLADDER CANCER + IP ORDER ON CHART ADMIT 10/12/24 OBS; INPATIENT 10/13/24 VASCULAR SURGERY-PODIATRY FOLLOWING, ROUTINE POST OP ORDERS, INSULIN PROTOCOL, KEFLEX PO TID, DOXYCYCLINE PO BID, LOVENOX SUBCUT DAILY PER PMD: Cellulitis and abscess of foot, except toes 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 2 diabetes mellitus, 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 necrosis (HCC) Diabetic leg ulcer (HCC) WBC wnl at admit. ESR wnl. CRP 28.69 at admit. XR bilteral tib fib with no acute findings. XR bilateral feet with small amt of subcutaneous gas in dorsum of R foot, no acute bony findings - podiatry consulted - s/p I&D R dorsal foot abscess and ulcer; I&D R anterior ankle diabetic ulcer and abscess 10/14 - wound culture 10/14 growing MSSA - BCx x2 10/12 NGTD - arterial studies 10/14 with severe diffuse arterial disease throughout RLE, mod LLE arterial disease - declines angiogram - discussed with patient, podiatry and vascular - now agreeable - plans for angiogram Tuesday - NPO at midnight tuesday - closure pending vascular intervention - continue keflex, doxy PAD (peripheral artery disease) SP left common iliac artery stent 08/23 - vascular consulted - angiogram Tuesday as above - MERCERIZING RANGE FEEDER ASA, lipitor, pletal - arterial studies as above Hyperkalemia K 5.4 at admit. resolved - continue to monitor D/C PLAN: ADMITTED FROM HOME; PENDING FURTHER ASSESSMENTS. * Utilization Review Notes - Liza Quintero RN - 10/17/2024 9:05 AM EDT Patient admitted as inpatient 10/12* - inpatient order on chart - admitted for Cellulitis and abscess of foot, except toes MEDS: Maxipime IVPB Flagyl IVPB Vancomycin IVPB NOTES: Per Hospitalist note: - plans for closure pending vascular studies - vascular studies pending - lantus 20 U qhs - increase to 30 - arterial studies 10/14 with severe diffuse arterial disease throughout RLE, mod LLE arterial disease - plans for closure per podiatry - stop vanc - deescalate to kesilvina dicksony DC PLAN: CC following * Utilization Review Notes - Qian Rodriguez LPN - 10/13/2024 2:27 PM EDT Admission from ER to MED SURG Admitted Observation 10/12/24 changed to Inpatient 10/23/24 Inpatient order on chart. Admission for Diabetic Foot Infection Chief Complaint Patient presents with Wound Check Patient to triage with sores on feet that per son look infected. Patient diabetic Extremities: Both feet are erythematous as well as the tib-fib region going up towards the knee. There is an ulcer and skin breakdown on the right foot and right leg respectively with no tenderness. The toes are swollen there. There are some missing toes from an amputation of the left foot and thatleg is red but less so. See image below. XR FOOT BILATERAL AP AND LATERAL Final Result 1. Small amount of subcutaneous gas in the dorsum of the right foot. 2. No acute bony abnormality of the feet. 3. Diffuse osteopenia which limits evaluation for erosive changes. Given this limitation, no osseous erosion is identified. Norvasc 5mg BID, Lipitor 40mg Nightly, Maxipime IV TID, SSI, Accucheck QID, Lantus 10 Units SQ q Evening, Imdur 30mg Nightly, Lisinopril 10mg Daily, Lopressor 50mg BID, Flagyl IV TID, MS Contin CR 45mg BID, Lyrica 300mg BID, NS IV Bolus x1, Aboots, 75 Gram Carb Diet, Consult Podiatry, [place] Lower Extremity Arterial Duplex Complete, Procedure: INCISION AND DRAINAGE, FOOT Discharge Planning Support Systems Children, Family Members Patient's Living Arrangments Prior to Admission? Private Residence With Other(s) Private Residence With Other(s) Children Home Care Services No Type of Home Care Services None Any concerns about discharging from the Hospital? None documented in this encounter Plan of Treatment Upcoming Encounters Date Type Department Care Team (Late st Contact Info) Description 11/21/2024 10:45 AM EDT Appointment [facility] [address] [place] [address] Grupo Kruger DPM [address] [facility] [place] [address] Pending Results Name Type Priority Associated Diagnoses Date /Time ECG AND WAVEFORMS - TELEMETRY Point of Care Testing Routine 10/22/2024 6:25 PM EDT documented as of this encounter Procedures Procedure Name Priority Date/Time Associated Diagnosis Comments SCANNED RHYTHM STRIPS 10/26/2024 1:33 PM EDT HOME HEALTH ORDERS (FACE TO FACE ENCOUNTER) Routine 10/25/2024 10:52 AM EDT GLUCOSE METER POC Routine 10/25/2024 8:49 AM EDT ECG AND WAVEFORMS - TELEMETRY Routine 10/25/2024 7:30 AM EDT CBC Timed 10/25/2024 5:42 AM EDT GLUCOSE METER POC Routine 10/25/2024 12:41 AM EDT GLUCOSE METER POC Routine 10/24/2024 9:29 PM EDT HEPARIN ANTI-XA, UNF Timed 10/24/2024 8:54 PM EDT ECG AND WAVEFORMS - TELEMETRY Routine 10/24/2024 8:45 PM EDT GLUCOSE METER POC Routine 10/24/2024 6:07 PM EDT HEPARIN ANTI-XA, UNF Timed 10/24/2024 3:10 PM EDT GLUCOSE METER POC Routine 10/24/2024 12:37 PM EDT GLUCOSE METER POC Routine 10/24/2024 7:01 AM EDT ECG AND WAVEFORMS - TELEMETRY Routine 10/24/2024 7:00 AM EDT HEPARIN ANTI-XA, UNF Early AM 10/24/2024 6:49 AM EDT CBC Early AM 10/24/2024 6:49 AM EDT URINALYSIS REFLEX Routine 10/23/2024 11:47 PM EDT UA W/REFLEX TO CULTURE Routine 10/23/2024 11:47 PM EDT EXTRA PINK URINE CX Routine 10/23/2024 11:47 PM EDT URINE CULTURE (NO STAIN) Routine 10/23/2024 11:47 PM EDT GLUCOSE METER POC Routine 10/23/2024 10:43 PM EDT ECG AND WAVEFORMS - TELEMETRY Routine 10/23/2024 7:01 PM EDT CBC WITH DIFF STAT 10/23/2024 6:53 PM EDT GLUCOSE METER POC Routine 10/23/2024 6:04 PM EDT IP CONSULT TO PHARMACY Routine 10/23/2024 5:50 PM EDT GLUCOSE METER POC Routine 10/23/2024 3:10 PM EDT US RENAL AND BLADDER GABRIEL 10/23/2024 1:38 PM EDT GLUCOSE METER POC Routine 10/23/2024 8:40 AM EDT ECG AND WAVEFORMS - TELEMETRY Routine 10/23/2024 7:35 AM EDT GLUCOSE METER POC Routine 10/22/2024 11:16 PM EDT IP CONSULT TO WOUND CARE Routine 10/22/2024 8:26 PM EDT IP CONSULT TO NUTRITION Routine 10/22/2024 8:26 PM EDT ECG AND WAVEFORMS - TELEMETRY Routine 10/22/2024 7:00 PM EDT IP CONSULT TO UROLOGY Routine 10/22/2024 6:48 PM EDT Procedure Note - Jacqueline Jordan APRN - 10/23/2024 12:22 PM EDTThis note is in progress. Images from the original note were not included. 10/23/[address] [facility] 1945 [id number] Reason for Consult: Hematuria Requesting Physician: Fahad Covarrubias MD History Obtained From: Patient/Son/Chart HISTORY OF PRESENT ILLNESS: The patient is a 79 y.o. male with a PMHx of DM, CAD, recurrentbladder CIS who presents with gross hematuria. He is currently admittedwith cellulitis and abscess of his right foot, s/p multiple I&Ds. Hismost recent cystoscopy/bladder bx was 09/02/[address] Murray, pathologywith CIS and high grade papillary urothelial carcinoma. He completed twoBCG treatments, but was lost to follow up. He did have a positive urineFISH and cytology 02/2024 and a cystoscopy, bladder biopsy was ordered butnot scheduled. Patient's son reports he was having other health issues.Labs during admission with normal Cr, last CBC with stable H&H, no UA hasbeen sent. On exam he reports feeling well, denies dysuria, frequency, orurgency. He reports GH started intermittently after restartinganticoagulation while inpatient. Past Medical History: Diagnosis Date Adjustment disorder with depressed mood 08/29/2017 Ambulates with cane for balance Arthritis Bladder problem CANCER CAD (coronary artery disease) Echo 07/21/2015: LVEF 60-65%. Abnormal septal motion (septal bounce). Mildpulmonic regurgitation. Cancer (HCC) BLADDER Diabetes mellitus (HCC) PERLA (dyspnea on exertion) Former smoker 01/07/2013 Full dentures H/O hematuria s/p L iliac stenting; admitted Heart murmur Heartburn Hypertension GXT 07/21/2015: LVEF 70%. Normal LV perfusion study. There is nopharmacologically provoked ischemia. Preserved LV systolic funtion.Preserved right ventricular function. Major depressive disorder, single episode, severe (HCC) 08/29/2017 Neuromuscular disorder (HCC) NEUROPATHY Osteoarthritis PAD (peripheral artery disease) Peripheral vascular disease Toe infection 05/04/2018 left middle toe infection, on Keflex for this, instructed to call [facility] prior to surgery Wears glasses Past Surgical History: Procedure Laterality Date BLADDER TUMOR EXCISION N/A 09/02/2023 CYSTOSCOPY, SMALL TRANSURETHRAL RESECTION OF BLADDER TUMOR, FULGERATIONOF BLADDER; Surgeon: Naman Murray MD; Location: [facility] MAIN OR;Service: Urology CATARACT REMOVAL Right 05/10/2018 RIGHT EYE CATARACT EXTRACTION WITH PHACOEMULSIFICATION AND INTRAOCULARLENS; Surgeon: Naman Berger MD; Location: [facility];Service: Ophthalmology CATARACT REMOVAL Left 05/24/2018 LEFT EYE CATARACT EXTRACTION WITH PHACOEMULSIFICATION AND INTRAOCULARLENS; Surgeon: Naman Berger MD; Location: [facility];Service: Ophthalmology CIRCUMCISION 2018 CORONARY ANGIOPLASTY WITH STENT PLACEMENT 2002 stents x 3 DEBRIDEMENT 10/14/2024 Surgeon: Grupo Kruger DPM; Location: [facility] MAIN OR; Service:Podiatry DENTAL SURGERY Full dentures FOOT SURGERY Right 10/14/2024 INCISION, DRAINAGE and debridement right foot and leg; Surgeon: Grupo Kruger DPM; Location: [facility] MAIN OR; Service: Podiatry ILIO-FEMORAL BYPASS GRAFT Left 08/24/2023 left iliac stent placement IR ABDOMINAL AORTOGRAM SERIALOGRAM 08/29/2017 IR ABDOMINAL AORTOGRAM SERIALOGRAM 08/29/2017 Elvis Morgan MD [facility] IR IR ANGIOGRAM EXTREMITY BILATERAL 08/29/2017 IR ANGIOGRAM EXTREMITY BILATERAL 08/29/2017 Elvis Morgan MD [facility] IR IR FLUOROSCOPY GUIDED CENTRAL VENOUS ACCESS DEVICE PLACEMENT 09/05/2017 IR FLUOROSCOPY GUIDED CENTRAL VENOUS ACCESS DEVICE PLACEMENT 09/05/2017Lata Vivar PA-C [facility] IR IR REVAS FEM POP ART UNILAT W MERCERIZING RANGE FEEDER 08/29/2017 IR REVAS FEM POP ART UNILAT W MERCERIZING RANGE FEEDER 08/29/2017 Elvis Morgan MD [facility] IR IR TUNNEL CATHETER REMOVAL WITHOUT IMAGING 10/12/2017 IR TUNNEL CATHETER REMOVAL WITHOUT IMAGING 10/12/2017 Lata Vivar PA-C [facility]TT IR IR TUNNELED PICC LINE 09/08/2017 IR TUNNELED PICC LINE 09/08/2017 Marika Villa PA [facility] IR IR ULTRASOUND GUIDED VASCULAR ACCESS 09/05/2017 IR ULTRASOUND GUIDED VASCULAR ACCESS 09/05/2017 Lata Vivar PA-C [facility] TOE AMPUTATION Left 08/30/2017 INCISION AND DRAINAGE WITH AMPUTATION LEFT HALLUX ; Surgeon: Sandra Rubi DPM; Location: [facility]; Service: Podiatry TOE AMPUTATION Left 07/24/2018 AMPUTATION LEFT SECOND TOE; Surgeon: Grupo Kruger DPM; Location:[facility]; Service: Podiatry Medications: Scheduled Meds: amLODIPine 5 mg Oral BID aspirin 81 mg Oral Daily atorvastatin 40 mg Oral Nightly cephALEXin 500 mg Oral 4 times per day clopidogreL 75 mg Oral Daily doxycycline hyclate 100 mg Oral 2 times per day enoxaparin 40 mg Subcutaneous Daily - LMWH/Xa insulin aspart U-100 1-15 Units Subcutaneous QID WM insulin aspart (NovoLOG) Nutritional (prandial) insulin (Orderable) 3Units Subcutaneous TID WM insulin glargine U-100 40 Units Subcutaneous QPM (Insulin) isosorbide mononitrate 30 mg Oral Nightly lisinopriL 20 mg Oral Daily metoprolol 50 mg Oral BID miconazole Topical BID morphine 45 mg Oral 2 times per day pregabalin 300 mg Oral BID sodium chloride 0.9% Intravenous 2 times per day Continuous Infusions: sodium chloride 0.9 % 100 mL/hr at 10/23/24 0858 PRN Meds:.acetaminophen, dextrose, diphenhydrAMINE, glucagon ANDsterile water, hydrALAZINE, morphine, ondansetron,oxyCODONE-acetaminophen, sodium chloride 0.9%, sodium chloride 0.9% No Known Allergies Social reports that he has been smoking cigars and cigarettes. He startedsmoking about 62 years ago. He has a 40.6 pack-year smoking history. Hehas never used smokeless tobacco. He reports that he does not drinkalcohol and does not use drugs. Family History Problem Relation Age of Onset Coronary Art Dis Father 50 approx Cancer Father Heart Disease Father Stroke Mother Cancer Sister Pancreatic Anesth Problems Neg Hx REVIEW OF SYSTEMS: A comprehensive review of systems was negative., except for the abovenoted system information in the History of presenting illness. VITALS: Vitals: 10/23/24 0516 10/23/24 0854 10/23/24 0857 10/23/24 1208 BP: (!) 121/36 122/48 114/44 BP Location: Left arm Left arm Patient Position: Lying left side Semi Fowlers Pulse: 52 54 56 Resp: 16 18 Temp: 97.7 F (36.5 C) TempSrc: Oral SpO2: 95% 93% Weight: Height: Physical Examination: General appearance - well appearing and in nodistress Mental status - alert, oriented to person, place, and time Eyes - left eye normal, right eye normal Ears - hearing grossly normal bilaterally Nose - normal and patent Mouth - mucous membranes moist Neck - supple Chest - breathing comfortably, no grossly audible wheezes, rales orrhonchi, symmetric air entry, no tachypnea, retractions or cyanosis Heart - normal rate and regular rhythm by peripheral palpitation Abdomen - soft, nontender, nondistended, no masses or organomegaly, nobladder distension noted Male - PureWick with clear red urine Back exam - no tenderness, palpable spasm or pain on motion Neurological - alert, oriented, normal speech, no focal findings ormovement disorder noted Musculoskeletal - no joint tenderness Skin - n no rashes DATA: CBC: Lab Results Component Value Date WBC 5.9 10/15/2024 RBC 5.03 10/15/2024 HGB 14.5 10/15/2024 HCT 43.6 10/15/2024 MCV 86.7 10/15/2024 MCHC 33.3 10/15/2024 RDW 15.0 (H) 10/15/2024 PLT 172 10/15/2024 MPV 10.5 10/15/2024 BMP: Lab Results Component Value Date NA 136 10/19/2024 K 4.5 10/19/2024 CL 102 10/19/2024 CO2 25 10/19/2024 BUN 18 10/19/2024 CREATININE 0.69 10/19/2024 CALCIUM 9.3 10/19/2024 GLU 179 (H) 10/19/2024 No results found for: SPECGRAV , UAPROTEIN , BLOODU , NITRITE , LEUKOCYTESUR , WBCUA , RBCUA UA POC: No results found for: UACOLORPOC , UAAPPEARPOC , UAGLUCPOC , UAKETONESPOC , UABLOODPOC , UAPHPOC , UAPROTEINPOC , UALEUKESTPOC , UASGPOC No results found. No results found for: PSA IMPRESSION/RECOMMENDATIONS: Active Hospital Problems Diagnosis *Cellulitis and abscess of foot, except toes Minor neurocognitive disorder Tobacco abuse DNR (do not resuscitate) 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 2 diabetes mellitus,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 necrosis (HCC) Diabetic leg ulcer (HCC) Diabetic foot infection (HCC) Malignant neoplasm of urinary bladder (HCC) Diabetic polyneuropathy associated with type 2 diabetes mellitus (HCC) Major depressive disorder, single episode, severe (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 PAD (peripheral artery disease) Essential hypertension Diabetes mellitus type 2 in nonobese (HCC) CAD in unga artery Gross Hematuria Recurrent bladder cancer S/P angioplasty on 10/22/24, anticoagulated on lovenox, ASA and plavix He is on Keflex for foot cellulitis Bladder scans to ensure complete emptying Clean catch UA with reflex to culture RBUS ordered Follow H&H - CBC ordered for tomorrow morning Thank you for asking me to see your patient. Jacqueline Jordan, LISA 10/23/2024 12:22 PM ECG AND WAVEFORMS - TELEMETRY Routine 10/22/2024 6:25 PM EDT IR REVAS TIB PER ART UNILAT INIT VES W MERCERIZING RANGE FEEDER [facility] 10/22/2024 6:17 PM EDT IR REVAS FEM POP ART UNILAT W MERCERIZING RANGE FEEDER [facility] 10/22/2024 6:17 PM EDT IR ULTRASOUND GUIDED VASCULAR ACCESS GABRIEL 10/22/2024 6:17 PM EDT IR ANGIOGRAM EXTREMITY BILATERAL GABRIEL 10/22/2024 6:17 PM EDT IR ABDOMINAL AORTOGRAM SERIALOGRAM GABRIEL 10/22/2024 6:17 PM EDT GLUCOSE METER POC Routine 10/22/2024 11:59 AM EDT GLUCOSE METER POC Routine 10/22/2024 8:07 AM EDT GLUCOSE METER POC Routine 10/21/2024 9:30 PM EDT GLUCOSE METER POC Routine 10/21/2024 6:05 PM EDT GLUCOSE METER POC Routine 10/21/2024 1:24 PM EDT GLUCOSE METER POC Routine 10/21/2024 9:36 AM EDT GLUCOSE METER POC Routine 10/20/2024 10:51 PM EDT GLUCOSE METER POC Routine 10/20/2024 7:04 PM EDT GLUCOSE METER POC Routine 10/20/2024 1:32 PM EDT GLUCOSE METER POC Routine 10/20/2024 10:27 AM EDT GLUCOSE METER POC Routine 10/19/2024 9:44 PM EDT GLUCOSE METER POC Routine 10/19/2024 6:22 PM EDT GLUCOSE METER POC Routine 10/19/2024 1:46 PM EDT BASIC METABOLIC PANEL Early AM 10/19/2024 11:11 AM EDT GLUCOSE METER POC Routine 10/19/2024 9:35 AM EDT GLUCOSE METER POC Routine 10/18/2024 9:57 PM EDT GLUCOSE METER POC Routine 10/18/2024 6:49 PM EDT GLUCOSE METER POC Routine 10/18/2024 1:37 PM EDT GLUCOSE METER POC Routine 10/18/2024 8:20 AM EDT BASIC METABOLIC PANEL Early AM 10/18/2024 7:18 AM EDT GLUCOSE METER POC Routine 10/17/2024 10:47 PM EDT GLUCOSE METER POC Routine 10/17/2024 6:15 PM EDT GLUCOSE METER POC Routine 10/17/2024 1:35 PM EDT GLUCOSE METER POC Routine 10/17/2024 8:24 AM EDT BASIC METABOLIC PANEL Early AM 10/17/2024 6:41 AM EDT GLUCOSE METER POC Routine 10/16/2024 10:14 PM EDT GLUCOSE METER POC Routine 10/16/2024 5:44 PM EDT VANCOMYCIN LEVEL AUC2 Timed 10/16/2024 1:47 PM EDT BASIC METABOLIC PANEL Add-On 10/16/2024 1:47 PM EDT GLUCOSE METER POC Routine 10/16/2024 1:06 PM EDT VANCOMYCIN LEVEL AUC1 Timed 10/16/2024 8:36 AM EDT GLUCOSE METER POC Routine 10/16/2024 8:24 AM EDT GLUCOSE METER POC Routine 10/15/2024 10:15 PM EDT GLUCOSE METER POC Routine 10/15/2024 5:44 PM EDT GLUCOSE METER POC Routine 10/15/2024 1:33 PM EDT IP CONSULT TO VASCULAR SURGERY Routine 10/15/2024 1:22 PM EDT Procedure Note - Elvis Morgan MD - 10/15/2024 2:09 PM EDTThis note is in progress. Images from the original note were not included. Name: Lopez Aquino ADDRESS: [place] [id number] : 1945 AGE: 79 y.o. Hospital: [facility] Requesting Attending: Dr. Parra Primary Care Physician: Beck Lazar MD Date of Admission: 10/12/2024 Date of Consultation: 10/15/2024 Admitting Diagnosis: Diabetic foot infection (HCC) Chief Complaint / Reason for Consult: PAD HISTORY OF PRESENT ILLNESS History of Presenting Illness: Lopez Aquino is a(n) 79 y.o. male with PMH significant fordiabetes mellitus, arthritis, bladder cancer, major depressive disorder,hypertension and CAD. He is known to our vascular service for PAD statuspost LLE intervention in 2018 (refer to vascular surgery history below forfull details). He had a left BRYON stent on 08/24/23 at [facility] (records are not available for review). Post-stenting he wasplaced on Plavix and aspirin, but Plavix discontinued due to hematuria. The patient presented to the ER on 10/12 for worsening diabetic footulcers. X-ray of the right tibia/fibula showed no acute osseousabnormality. Bilateral foot X-rays showed small amount of subcutaneousgas in the dorsum of the right foot. He underwent incision and drainageof right foot abscess by Podiatry (Dr. Kruger) on 10/14. Vascular Surgerywas consulted for further evaluation. BLE arterial duplex showed significant arterial atherosclerosis notedthroughout the right lower extremity. There is evidence of severe diffusearterial disease throughout the right lower extremity. Difficult to imageand doppler making it difficult to determine stenosis/occlusions. Rightproximal anterior tibial artery was imaged with monophasic flow; unable tovisualize mid to distal due to dressings Right DPA was obtained; vessel isnon-compressible. Right 1st digit is absent. Monophasic Doppler flowpattern is noted throughout the right lower extremity. Arterialatherosclerosis noted throughout the left lower extremity. Evidence ofmoderate left lower extremity arterial disease demonstrated. BiphasicDoppler flow pattern is noted in the common femoral, femoral and poplitealarteries of the left lower extremity. Monophasic Doppler flow pattern isnoted throughout the tibial arteries of the left lower extremity. LeftABI is MERCERIZING RANGE FEEDER 0.98 and DPA 0.84. 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 No colorflow/spectral Doppler with intraluminal plaque noted throughout the leftanterior tibial artery consistent with a total occlusion. Vascular Surgery History: 08/24/2023 - L BRYON stenting ([facility]) 08/29/2017 - LE angio with angio of the left MERCERIZING RANGE FEEDER, peroneal artery and SFA(Dr. Morgan) REVIEW OF SYSTEMS Review of Systems: The following systems were reviewed and revealed the following in additionto any already discussed in the HPI: Constitutional: No additional concerns noted Eyes: No additional concerns HENT: No additional concerns noted Respiratory: No additional concerns noted Cardiovascular: No additional concerns noted Gastrointestinal: No additional concerns noted Genitourinary: No additional concerns noted Musculoskeletal: No additional concerns noted Integumentary: No additional concerns noted Hematology / Lymphatics: No additional concerns Endocrine: No additional concerns noted Allergy / Immunology: No additional concerns noted Neuro / Psych: No additional concerns noted MEDICAL HISTORY Medications Medications Prior to Admission Medication Sig Dispense Refill Last Dose/Taking amLODIPine (NORVASC) 5 mg Oral Tablet Take 1 Tab by mouth 2 times daily.60 Tab 0 10/12/2024 at 9:00 AM aspirin 81 mg Oral Tablet, Chewable Take by mouth daily (withbreakfast). 10/12/2024 at 9:00 AM atorvastatin (LIPITOR) 40 mg Oral Tablet Take 1 Tab by mouth daily. 30Tab 0 10/11/2024 Bedtime cilostazoL (PLETAL) 50 mg Oral Tablet Take 50 mg by mouth 2 times daily.10/12/2024 at 2:00 PM insulin glargine U-100 (LANTUS) 100 unit/mL SubQ Solution Subcutaneous(Inject under the skin) 10 Units every evening. 10 mL 10/11/2024 Bedtime isosorbide mononitrate (IMDUR) 30 mg Oral Tablet Sustained Release 24 hrTake 30 mg by mouth every morning. 10/12/2024 at 7:00 PM lisinopriL (PRINIVIL;ZESTRIL) 10 mg Oral Tablet Take 10 mg by mouthdaily. 10/12/2024 at 9:00 AM metFORMIN (GLUCOPHAGE) 500 mg tablet Take 500 mg by mouth 3 times daily.10/12/2024 at 2:00 PM metoprolol (LOPRESSOR) 25 mg tablet Take 50 mg by mouth 2 times daily.10/12/2024 at 5:00 PM mirabegron (MYRBETRIQ) 25 mg Oral Tablet Sustained Release 24 hr Take 1Tablet by mouth daily. 30 Tablet 0 10/12/2024 at 5:00 PM morphine (MSIR) 15 mg Oral Tablet Take 15 mg by mouth 2 times daily.10/12/2024 at 5:00 PM oxyCODONE (ROXICODONE) 5 mg Oral Tablet Take 5 mg by mouth every 4 hoursas needed for Chronic Pain (G89.29). 10/11/2024 at 9:00 AM pregabalin (LYRICA) 150 mg Oral Capsule Take 150 mg by mouth 2 timesdaily. 10/12/2024 at 7:00 PM acetaminophen (TYLENOL) 500 mg Oral Tablet Take 1 Tablet by mouth every 4hours as needed for Pain. (Patient not taking: Reported on 10/12/2024)Not Taking CINNAMON BARK (CINNAMON ORAL) Take 2,000 mg by mouth daily. (Patient nottaking: Reported on 08/31/2023) Unknown cyanocobalamin 1,000 mcg Oral Tablet Take 1 Tablet by mouth daily.(Patient not taking: Reported on 10/12/2024) 90 Tablet 0 Not Taking diclofenac (VOLTAREN) 1 % Top Gel Apply 2 g topically 2 times daily.(Patient taking differently: Apply 2 g topically as needed.) Unknown ferrous sulfate 325 mg (65 mg iron) Oral Tablet Take 1 Tablet by mouthdaily. (Patient not taking: Reported on 10/12/2024) 90 Tablet 0 Not Taking insulin lispro (HUMALOG U-100 INSULIN) 100 unit/mL SubQ SolutionSubcutaneous (Inject under the skin) 10-12 Units 3 times daily (beforemeals). (Patient not taking: Reported on 10/12/2024) Not Taking Lancets Misc Misc Lancet 100, meter 1, strips 100 of insurance choice 1box 0 Unknown LEVEMIR FLEXPEN 100 unit/mL (3 mL) SubQ Insulin Pen Subcutaneous (Injectunder the skin) 50 Units every evening. Unknown nitroGLYCERIN (NITROSTAT) 0.[address] 1 Tab under the tongueevery 5 minutes as needed for Chest pain for 3 doses. (Patient not taking:Reported on 10/12/2024) 50 Tab 2 Not Taking tamsulosin (FLOMAX) 0.4 mg Oral Capsule Take 1 Capsule by mouth nightly.(Patient not taking: Reported on 10/12/2024) 30 Capsule 0 Not Taking Current Facility-Administered Medications Medication Dose Route Frequency Provider Last Rate Last Admin acetaminophen (TYLENOL) tablet 650 mg 650 mg Oral Q4H PRN Grupo Kruger DPM amLODIPine (NORVASC) tablet 5 mg 5 mg Oral BID Grupo Kruger DPM5 mg at 10/15/24 0905 atorvastatin (LIPITOR) tablet 40 mg 40 mg Oral Nightly Osmany Kruger DPM 40 mg at 10/14/24 2210 ceFEPIme (MAXIPIME) 1 g/50 mL IVPB 1 g Intravenous 3 times per dayWGrupo mckinnon DPM Stopped at 10/15/24 0953 dextrose 50 % solution 25 mL 25 mL Intravenous PRN Grupo Kruger DPM diphenhydrAMINE (BENADRYL) injection 25 mg 25 mg Intravenous Q4H PRNLindsey Winn APRN 25 mg at 10/14/24 2249 enoxaparin (LOVENOX) injection 40 mg 40 mg Subcutaneous Daily - LMWH/Ahsan Lazaro Jr., MD glucagon (GLUCAGEN) injection 1 mg 1 mg Intramuscular PRN Grupo Kruger DPM And sterile water injection 1 mL 1 mL Injection PRN Grupo Kruger DPM hydrALAZINE (APRESOLINE) tablet 25 mg 25 mg Oral TID PRN Ahsan Parra Jr., MD insulin aspart U-100 (NovoLOG) injection 1-15 Units 1-15 UnitsSubcutaneous QID Ahsan Parra Jr., MD insulin glargine U-100 (LANTUS) injection 20 Units 20 Units SubcutaneousQPM (Insulin) Ahsan Parra Jr., MD isosorbide mononitrate (IMDUR) CR tablet 30 mg 30 mg Oral NightlyWGrupo mckinnon DPM 30 mg at 10/14/24 2210 lisinopriL (PRINIVIL;ZESTril) tablet 20 mg 20 mg Oral Daily Ahsan Parra Jr., MD 20 mg at 10/15/24 0905 metoprolol (LOPRESSOR) tablet 50 mg 50 mg Oral BID Grupo Kruger DPM 50 mg at 10/15/24 0905 metroNIDAZOLE (FLAGYL) IVPB 500 mg 500 mg Intravenous 3 times per dayGrupo Kruger DPM Stopped at 10/14/24 2255 miconazole (MICATIN) 2 % powder Topical BID Grupo Kruger DPMGiven at 10/15/24 0900 morphine (MS CONTIN) CR tablet 45 mg 45 mg Oral 2 times per day Grupo Kruger DPM 45 mg at 10/15/24 0905 morphine injection 1-2 mg 1-2 mg Intravenous Q4H PRN Grupo Kruger DPM ondansetron (ZOFRAN) injection 4 mg 4 mg Intravenous Q4H PRN Grupo Kruger DPM oxyCODONE (ROXICODONE) immediate release tablet 5 mg 5 mg Oral Q4H PRNWGrupo mckinnon DPM pregabalin (LYRICA) capsule 300 mg 300 mg Oral BID Grupo Kruger DPM 300 mg at 10/15/24 0905 sodium chloride 0.9% IV line flush 20-50 mL 20-50 mL Intravenous PRNWAhsan andrade Jr., MD sodium chloride 0.9% syringe Intravenous 2 times per day Ahsan Parra Jr., MD 10 mL at 10/15/24 09 sodium chloride 0.9% syringe Intravenous PRN Ahsan Parra Jr., MD vancomycin in dextrose 5% (VANCOCIN) premix IVPB 1,500 mg 1,500 mgIntravenous Q18H Nuno Eaton MD Stopped at 10/14/24 1228 No Known Allergies Past Medical History: Diagnosis Date Adjustment disorder with depressed mood 08/29/2017 Ambulates with cane for balance Arthritis Bladder problem CANCER CAD (coronary artery disease) Echo 07/21/2015: LVEF 60-65%. Abnormal septal motion (septal bounce). Mildpulmonic regurgitation. Cancer (HCC) BLADDER Diabetes mellitus (HCC) PERLA (dyspnea on exertion) Former smoker 01/07/2013 Full dentures H/O hematuria s/p L iliac stenting; admitted Heart murmur Heartburn Hypertension GXT 07/21/2015: LVEF 70%. Normal LV perfusion study. There is nopharmacologically provoked ischemia. Preserved LV systolic funtion.Preserved right ventricular function. Major depressive disorder, single episode, severe (HCC) 08/29/2017 Neuromuscular disorder (HCC) NEUROPATHY Osteoarthritis PAD (peripheral artery disease) Peripheral vascular disease Toe infection 05/04/2018 left middle toe infection, on Keflex for this, instructed to call [facility] prior to surgery Wears glasses Past Surgical History: Procedure Laterality Date BLADDER TUMOR EXCISION N/A 09/02/2023 CYSTOSCOPY, SMALL TRANSURETHRAL RESECTION OF BLADDER TUMOR, FULGERATIONOF BLADDER; Surgeon: Naman Murray MD; Location: [facility];Service: Urology CATARACT REMOVAL Right 05/10/2018 RIGHT EYE CATARACT EXTRACTION WITH PHACOEMULSIFICATION AND INTRAOCULARLENS; Surgeon: Naman Bergre MD; Location: [facility];Service: Ophthalmology CATARACT REMOVAL Left 05/24/2018 LEFT EYE CATARACT EXTRACTION WITH PHACOEMULSIFICATION AND INTRAOCULARLENS; Surgeon: Naman Berger MD; Location: [facility];Service: Ophthalmology CIRCUMCISION 2018 CORONARY ANGIOPLASTY WITH STENT PLACEMENT 2002 stents x 3 DENTAL SURGERY Full dentures ILIO-FEMORAL BYPASS GRAFT Left 08/24/2023 left iliac stent placement IR ABDOMINAL AORTOGRAM SERIALOGRAM 08/29/2017 IR ABDOMINAL AORTOGRAM SERIALOGRAM 08/29/2017 Elvis Morgan MD [facility] IR ANGIOGRAM EXTREMITY BILATERAL 08/29/2017 IR ANGIOGRAM EXTREMITY BILATERAL 08/29/2017 Elvis Morgan MD [facility] IR FLUOROSCOPY GUIDED CENTRAL VENOUS ACCESS DEVICE PLACEMENT 09/05/2017 IR FLUOROSCOPY GUIDED CENTRAL VENOUS ACCESS DEVICE PLACEMENT 09/05/2017Lata Vivar PA-C [facility] IR REVAS FEM POP ART UNILAT W MERCERIZING RANGE FEEDER 08/29/2017 IR REVAS FEM POP ART UNILAT W MERCERIZING RANGE FEEDER 08/29/2017 Elvis Morgan MD [facility] IR TUNNEL CATHETER REMOVAL WITHOUT IMAGING 10/12/2017 IR TUNNEL CATHETER REMOVAL WITHOUT IMAGING 10/12/2017 Lata Vivar PA-C [facility] IR IR TUNNELED PICC LINE 09/08/2017 IR TUNNELED PICC LINE 09/08/2017 Marika Villa PA [facility] IR ULTRASOUND GUIDED VASCULAR ACCESS 09/05/2017 IR ULTRASOUND GUIDED VASCULAR ACCESS 09/05/2017 Lata Vivar PA-C [facility] TOE AMPUTATION Left 08/30/2017 INCISION AND DRAINAGE WITH AMPUTATION LEFT HALLUX ; Surgeon: Sandra Rubi DPM; Location: [facility]; Service: Podiatry TOE AMPUTATION Left 07/24/2018 AMPUTATION LEFT SECOND TOE; Surgeon: Grupo Kruger DPM; Location:[facility]; Service: Podiatry Family History Problem Relation Age of Onset Coronary Art Dis Father 50 approx Cancer Father Heart Disease Father Stroke Mother Cancer Sister Pancreatic Anesth Problems Neg Hx Social History: Social History Tobacco Use Smoking Status Every Day Current packs/day: 1.00 Average packs/day: 1 pack/day for 40.6 years (40.6 ttl pk-yrs) Types: Cigars, Cigarettes Start date: 1962 Last attempt to quit: 1989 Smokeless Tobacco Never Tobacco Comments Cigarettes-quit 2001 but still smokes cigars PHYSICAL EXAMINATION Physical Examination Patient Vitals for the past 24 hrs: BP Temp Temp src Pulse Resp SpO2 10/15/24 0903 140/65 98.2 F (36.8 C) Oral 65 16 96 % 10/15/24 0550 145/64 98.6 F (37 C) Oral 63 16 96 % 10/14/24 2100 160/73 98.2 F (36.8 C) Oral 66 16 94 % 10/14/24 1529 145/65 98 F (36.7 C) Oral 60 16 92 % General: Patient appears comfortable in no apparent distress. Skin: Pics in media reviewed as seen below: RLE R foot Left foot R foot LLE Head: NC/AT Eyes: Anicteric sclerae. ENT: Face is symmetrical. Neck: No tracheal deviation Lungs: Effort normal Cardiac: RRR Abdomen: Abdomen is soft, non-tender. Vascular Pulse Exam: (Difficult due to body habitus, sitting up in amotorized scooter and wearing sweat pants) R radial +2 L radial +2 R femoral L femoral R popliteal L popliteal R posterior tibial dressing L posterior tibial R dorsalis pedis dressing L dorsalis pedis Back: No kyphosis noted : not examined Lymphadenopathy: not examined Musculoskeletal: moves all extremities Extremities: No lower extremity edema. L groin dressing removed. Neurological: alert and oriented. LABS AND RADIOLOGY Laboratory: CBC: Lab Results Component Value Date WBC 5.9 10/15/2024 RBC 5.03 10/15/2024 HGB 14.5 10/15/2024 HCT 43.6 10/15/2024 MCV 86.7 10/15/2024 MCHC 33.3 10/15/2024 RDW 15.0 (H) 10/15/2024 PLT 172 10/15/2024 MPV 10.5 10/15/2024 BMP: Lab Results Component Value Date NA 133 (L) 10/15/2024 K 4.6 10/15/2024 CL 98 10/15/2024 CO2 24 10/15/2024 BUN 11 10/15/2024 CREATININE 0.55 (L) 10/15/2024 CALCIUM 9.1 10/15/2024 GLU 306 (H) 10/15/2024 Radiology: MS US LOWER EXTREMITY ARTERIAL DUPLEX COMPLETE Result Date: 10/14/2024 Conclusions * Significant arterial atherosclerosis noted throughout theright lower extremity. * Evidence of severe diffuse arterial diseasethroughout the right lower extremity. Difficult to image and dopplermaking it difficult to determine stenosis/occlusions. * Right proximalanterior tibial artery was imaged with monophasic flow; unable tovisualize mid to distal due to dressings. * Right DPA was obtained;vessel is non-compressible. * Right 1st digit is absent. * MonophasicDoppler flow pattern is noted throughout the right lower extremity. *Arterial atherosclerosis noted throughout the left lower extremity. *Evidence of moderate left lower extremity arterial disease demonstrated.* Biphasic Doppler flow pattern is noted in the common femoral, femoraland popliteal arteries of the left lower extremity. * Monophasic Dopplerflow pattern is noted throughout the tibial arteries of the left lowerextremity. * Left MC is MERCERIZING RANGE FEEDER 0.98 and DPA 0.84. * Left DBI is belowhealing index. * No color flow/spectral Doppler with intraluminal plaquenoted throughout the left anterior tibial artery consistent with a totalocclusion. MEDICAL DECISION MAKING Assessment: PAD with bilateral diabetic foot ulcers S/p I&D right foot abscess by Podiatry on 10/14 Hx L BRYON stenting on 08/24/2023 Hypertension CAD hx stents Diabetes mellitus Bladder cancer Chronic pain syndrome Recommendations: No immediate plans for vascular intervention. Ok to resume previous diet if cleared by other specialist. Continue ABX. Wound care per Podiatry recommendations. Dr. Morgan will review the images of the BLE arterial duplex with furtherrecommendations to follow. May need to consider CT angiogram of the aorta with runoff vs LE angiogramwith intervention during this admission. Continue statin. Consider starting bASA Thank you for including us in the care of your patient. I will followLopez Aquino with you during this hospitalization. Time spent reviewing chart, discussing plan/answering questions of family,and at the bedside examining patient: 45 minutes Signed: Sal Daniel PA-C 10/15/2024 2:10 PM Physician Documentation: I independently evaluated the patient, performed a physical examination,and review of the history, labs and medications. I reviewed the findingsof the physician assistant chief of police/nurse practitioner and discussed the case indetail. Below is a summary of my pertinent independent evaluation andfindings in addition to the assessment and plan formulated by thephysician assistant chief of police/nurse practitioner. Patient seen examined. Patient with history of lower extremity PAD whopresented with nonhealing right lower EXTR ulceration. On examinationpatient's right foot is wrapped with bandage. Patient's arterial studyreviewed. Revealed diffuse lower extremity disease. I recommendangiogram with intervention to improve lower EXTR perfusion. Patienthowever would like to wait to see if the wound will heal. Will continuelocal wound care. ELVIS MORGAN MD, FACS This note was completed using voice recognition technology. Despite thewriter's best efforts to proof read, it may still contain unintendederrors. Please call with questions. VANCOMYCIN LEVEL AUC2 Timed 10/15/2024 12:40 PM EDT GLUCOSE METER POC Routine 10/15/2024 8:47 AM EDT VANCOMYCIN LEVEL AUC1 Timed 10/15/2024 6:09 AM EDT CBC Early AM 10/15/2024 6:09 AM EDT BASIC METABOLIC PANEL Early AM 10/15/2024 6:09 AM EDT IP CONSULT TO WOUND CARE Routine 10/15/2024 1:56 AM EDT GLUCOSE METER POC Routine 10/14/2024 10:23 PM EDT GLUCOSE METER POC Routine 10/14/2024 7:07 PM EDT GLUCOSE METER POC Routine 10/14/2024 3:27 PM EDT [facility] LOWER EXTREMITY ARTERIAL DUPLEX COMPLETE Routine 10/14/2024 3:02 PM EDT GLUCOSE METER POC Routine 10/14/2024 10:26 AM EDT GLUCOSE METER POC Routine 10/14/2024 8:33 AM EDT FUNGUS CULTURE (NO STAIN) Routine 10/14/2024 8:14 AM EDT Diabetic foot infection (HCC) WOUND CULTURE (STAIN INCLUDED) Routine 10/14/2024 8:14 AM EDT Diabetic foot infection (HCC) ANAEROBIC CULTURE (NO STAIN) Routine 10/14/2024 8:14 AM EDT Diabetic foot infection (HCC) INCISION AND DRAINAGE, LEG/THIGH 10/14/2024 8:00 AM EDT Diabetic foot infection (HCC) INCISION AND DRAINAGE, FOOT 10/14/2024 8:00 AM EDT Diabetic foot infection (HCC) GLUCOSE METER POC Routine 10/14/2024 7:17 AM EDT CBC Early AM 10/14/2024 5:39 AM EDT BASIC METABOLIC PANEL Early AM 10/14/2024 5:39 AM EDT GLUCOSE METER POC Routine 10/13/2024 10:46 PM EDT GLUCOSE METER POC Routine 10/13/2024 6:50 PM EDT ADMIT Routine 10/13/2024 3:25 PM EDT GLUCOSE METER POC Routine 10/13/2024 2:15 PM EDT GLUCOSE METER POC Routine 10/13/2024 9:26 AM EDT CBC Early AM 10/13/2024 6:32 AM EDT BASIC METABOLIC PANEL Early AM 10/13/2024 6:32 AM EDT REPEAT LACTIC ACID STAT 10/13/2024 12:36 AM EDT REPEAT LACTIC ACID STAT 10/12/2024 10:48 PM EDT REPEAT LACTIC ACID STAT 10/12/2024 9:12 PM EDT SEDIMENTATION RATE AUTOMATED Routine 10/12/2024 9:12 PM EDT C-REACTIVE PROTEIN Routine 10/12/2024 9:12 PM EDT HEMOGLOBIN A1C Routine 10/12/2024 9:12 PM EDT GLUCOSE METER POC Routine 10/12/2024 8:20 PM EDT ADMIT Routine 10/12/2024 7:33 PM EDT IP CONSULT TO PODIATRY Routine 10/12/2024 7:31 PM EDT BLOOD GAS, VENOUS STAT 10/12/2024 6:50 PM EDT PROCALCITONIN STAT 10/12/2024 6:10 PM EDT BLOOD CULTURE (NO STAIN) STAT 10/12/2024 6:10 PM EDT BLOOD CULTURE (NO STAIN) STAT 10/12/2024 6:10 PM EDT CBC WITH DIFF STAT 10/12/2024 6:10 PM EDT LACTIC ACID STAT 10/12/2024 6:10 PM EDT BASIC METABOLIC PANEL STAT 10/12/2024 6:10 PM EDT XR FOOT BILATERAL AP AND LATERAL STAT 10/12/2024 5:57 PM EDT XR TIBIA FIBULA BILATERAL AP AND LATERAL STAT 10/12/2024 5:56 PM EDT SALINE LOCK IV STAT 10/12/2024 5:20 PM EDT documented in this encounter Results * SCANNED RHYTHM STRIPS (10/26/2024 1:33 PM EDT) Anatomical Region Laterality Modality Other 10/26/2024 1:33 PM EDT us Unknown Provider IMG ECG ORDERABLES Final Result * (ABNORMAL) GLUCOSE METER POC (10/25/2024 8:49 AM EDT) [facility] Glucose Meter POC 145(H) 70 - 100 mg/dL 10/25/2024 8:51 AM EDT [facility] Sample Type Capillary 10/25/2024 8:51 AM EDT [facility] Patient Status Non-Critical Patient 10/25/2024 8:51 AM EDT [facility] Blood BLOOD SPECIMEN / Unknown 10/25/2024 8:49 AM EDT 10/25/2024 8:51 AM EDT us Igor Lynn MD POINT OF CARE TEST ORDERABLES Fi nal Result [facility] [address] [place], [place] [id number] * ECG AND WAVEFORMS - TELEMETRY (10/25/2024 7:30 AM EDT) [facility] ECG INTERPRET Sinus Rhythm w/ First Degree AVB [facility] Comment:sinus susanne 1st degr ee 10/25/2024 7:30 AM EDT Narrative [facility] - 10/25/2024 7:44 AM EDT ECB - ROUTINE AK 0.25 QRS 0.10 RR 1.20 QT 0.42 QTc 0.38 See Clinical Report link for waveform capture us Unknown Provider POINT OF CARE CARDIOLOGY Final Result [facility] [address] [place] [address] * (ABNORMAL) CBC (10/25/2024 5:42 AM EDT) [facility] WBC 6.5 3.7 - 10.3 x10(3)/mcL 10/25/2024 6:34 AM EDT [facility] RBC 4.11(L) 4.60 - 6.10 x10(6)/mcL 10/25/2024 6:34 AM EDT [facility] Hgb 11.9(L) 13.7 - 17.5 g/dL 10/25/2024 6:34 AM EDT [facility] Hct 38.1(L) 40.0 - 51.0 % 10/25/2024 6:34 AM EDT [facility] MCV 92.7 80.0 - 100.0 fL 10/25/2024 6:34 AM EDT [facility] MCH 29.0 26.0 - 34.0 pg 10/25/2024 6:34 AM EDT [facility] MCHC 31.2 30.7 - 35.5 g/dL 10/25/2024 6:34 AM EDT [facility] RDW 15.8(H) <=14.9 % 10/25/2024 6:34 AM EDT [facility] Platelet 154(L) 155 - 369 x10(3)/mcL 10/25/2024 6:34 AM EDT [facility] MPV 11.8 8.8 - 12.5 fL 10/25/2024 6:[address] [facility] Blood VENOUS BLOOD / Unknown Venipuncture / Unknown 10/25/2024 5:42 AM EDT 10/25/2024 6:17 AM EDT us Elvis Morgan MD HEMATOLOGY ORDERABLES Final R esult Performing Organization Address City/[facility]/ZIP Co de Phone Number [facility] [employer] [facility] [address] [facility], [address] [place] [phone] * (ABNORMAL) GLUCOSE METER POC (10/25/2024 12:41 AM EDT) Glucose Meter POC 218(H) 70 - 100 mg/dL 10/25/2024 12:42 AM EDT [facility] Sample Type Capillary 10/25/2024 12:42 AM EDT [facility] Patient Status Non-Critical Patient 10/25/2024 12:42 AM EDT [facility] Blood BLOOD SPECIMEN / Unknown 10/25/2024 12:41 AM EDT 10/25/2024 12:42 AM EDT us Igor Lynn MD POINT OF CARE TEST ORDERABLES Fi nal Result Performing Organization Address [facility] Co de Phone Number [place] [phone] * (ABNORMAL) GLUCOSE METER POC (10/24/2024 9:29 PM EDT) Glucose Meter POC 420(H) 70 - 100 mg/dL 10/24/2024 9:30 PM EDT [facility] Sample Type Capillary 10/24/2024 9:30 PM EDT [facility] Patient Status Non-Critical Patient 10/24/2024 9:30 PM EDT [facility] Blood BLOOD SPECIMEN / Unknown 10/24/2024 9:29 PM EDT 10/24/2024 9:30 PM EDT Igor Lynn MD POINT OF CARE TEST ORDERABLES Fi nal Result Performing Organization Address City/[facility]/[place] Co de Phone Number [address] [phone] * (ABNORMAL) HEPARIN ANTI-XA, UNF (10/24/2024 8:54 PM EDT) Heparin Level UNF 0.27(L) 0.30 - 0.70 IU/mL 10/24/2024 9:31 PM EDT [facility] Comment:The therapeutic rang e for heparinized patients monitored by the Heparin Lvl UF is 0.30-0.70 IU/mL. Blood VENOUS BLOOD / Unknown Venipuncture / Unknown 10/24/2024 8:54 PM EDT 10/24/2024 9:20 PM EDT Igor Lynn MD HEMATOLOGY ORDERABLES Final Resu lt Performing Organization Address [facility] Co de Phone Number [facility] [address] [place] [address] DR, [place] [address] * ECG AND WAVEFORMS - TELEMETRY (10/24/2024 8:45 PM EDT) [facility] ECG INTERPRET Sinus Bradycardia [facility] 10/24/2024 8:45 PM EDT Narrative [facility] - 10/24/2024 8:48 PM EDT ROUTINE W/ 1 DEG AVB (JM) AK 0.22 QRS 0.08 RR 1.01 QT 0.41 QTc 0.40 See Clinical Report link for waveform capture us Unknown Provider POINT OF CARE CARDIOLOGY Final Result Performing Organization Address City/[facility]/ZIP Co de Phone Number [facility] [address] [place] [address] * (ABNORMAL) GLUCOSE METER POC (10/24/2024 6:07 PM EDT) Glucose Meter POC 328(H) 70 - 100 mg/dL 10/24/2024 6:09 PM EDT [facility] Sample Type Capillary 10/24/2024 6:09 PM EDT [facility] Patient Status Non-Critical Patient 10/24/2024 6:09 PM EDT [facility] Blood BLOOD SPECIMEN / Unknown 10/24/2024 6:07 PM EDT 10/24/2024 6:09 PM EDT Igor Lynn MD POINT OF CARE TEST ORDERABLES Fi nal Result Performing Organization Address [facility] Co de Phone Number [address] [address] * (ABNORMAL) HEPARIN ANTI-XA, UNF (10/24/2024 3:10 PM EDT) Heparin Level UNF 0.19(L) 0.30 - 0.70 IU/mL 10/24/2024 3:35 PM EDT [facility] Comment:The therapeutic rang e for heparinized patients monitored by the Heparin Lvl UF is 0.30-0.70 IU/mL. Blood VENOUS BLOOD / Unknown Venipuncture / Unknown 10/24/2024 3:10 PM EDT 10/24/2024 3:25 PM EDT Fran Francisco MD HEMATOLOGY ORDERABLES Final Resu lt Performing Organization Address [facility] Co de Phone Number [facility] [address] [place] [address], [address] [place] [phone] * (ABNORMAL) GLUCOSE METER POC (10/24/2024 12:37 PM EDT) Glucose Meter POC 238(H) 70 - 100 mg/dL 10/24/2024 12:39 PM EDT [facility] Sample Type Capillary 10/24/2024 12:39 PM EDT [facility] Patient Status Non-Critical Patient 10/24/2024 12:39 PM EDT [facility] Blood BLOOD SPECIMEN / Unknown 10/24/2024 12:37 PM EDT 10/24/2024 12:39 PM EDT Igor Lynn MD POINT OF CARE TEST ORDERABLES Fi nal Result Performing Organization Address [facility] Co de Phone Number [place] [phone] * (ABNORMAL) GLUCOSE METER POC (10/24/2024 7:01 AM EDT) Glucose Meter POC 168(H) 70 - 100 mg/dL 10/24/2024 7:02 AM EDT [facility] Sample Type Capillary 10/24/2024 7:02 AM EDT [facility] Patient Status Non-Critical Patient 10/24/2024 7:02 AM EDT [facility] Blood BLOOD SPECIMEN / Unknown 10/24/2024 7:01 AM EDT 10/24/2024 7:02 AM EDT Igor Lynn MD POINT OF CARE TEST ORDERABLES Fi nal Result Performing Organization Address [facility] de Phone Number [facility] [address] [place] [address] * ECG AND WAVEFORMS - TELEMETRY (10/24/2024 7:00 AM EDT) [facility] ECG INTERPRET First Degree Sinus Rhythm [facility] 10/24/2024 7:00 AM EDT Narrative [facility] - 10/24/2024 7:44 AM EDT [facility] - ROUTINE - 1ST DEGREE AV BLOCK AK 0.21 QRS 0.12 RR 1.00 QT 0.45 QTc 0.45 See Clinical Report link for waveform capture Unknown Provider POINT OF CARE CARDIOLOGY Final Result Performing Organization Address [facility] Co de Phone Number [facility] [address] [place] [address] * (ABNORMAL) HEPARIN ANTI-XA, UNF (10/24/2024 6:49 AM EDT) Heparin Level UNF 0.14(L) 0.30 - 0.70 IU/mL 10/24/2024 7:34 AM EDT [facility] Comment:The therapeutic rang e for heparinized patients monitored by the Heparin Lvl UF is 0.30-0.70 IU/mL. Blood VENOUS BLOOD / Unknown Venipuncture / Unknown 10/24/2024 6:49 AM EDT 10/24/2024 7:15 AM EDT us Elvis Morgan MD HEMATOLOGY ORDERABLES Final R esult [facility] [address] [facility] , [place] [address] * (ABNORMAL) CBC (10/24/2024 6:49 AM EDT) WBC 6.1 3.7 - 10.3 x10(3)/mcL 10/24/2024 7:35 AM EDT [facility] RBC 4.25(L) 4.60 - 6.10 x10(6)/mcL 10/24/2024 7:35 AM EDT [facility] Hgb 12.3(L) 13.7 - 17.5 g/dL 10/24/2024 7:35 AM EDT [facility] Hct 38.5(L) 40.0 - 51.0 % 10/24/2024 7:35 AM EDT [facility] MCV 90.6 80.0 - 100.0 fL 10/24/2024 7:35 AM EDT [facility] MCH 28.9 26.0 - 34.0 pg 10/24/2024 7:35 AM EDT [facility] MCHC 31.9 30.7 - 35.5 g/dL 10/24/2024 7:35 AM EDT [facility] RDW 15.6(H) <=14.9 % 10/24/2024 7:35 AM EDT [facility] Platelet 158 155 - 369 x10(3)/mcL 10/24/2024 7:35 AM EDT [facility] MPV 11.1 8.8 - 12.5 fL 10/24/2024 7:35 AM EDT [facility] Blood VENOUS BLOOD / Unknown Venipuncture / Unknown 10/24/2024 6:49 AM EDT 10/24/2024 7:15 AM EDT Jacqueline Jordan MARKETING ANALYTICS ANALYST HEMATOLOGY ORDERABLES Fin al Result Performing Organization Address City/[facility]/ZIP Co de Phone Number [facility] [address] [facility] , [address] [place] [phone] * (ABNORMAL) URINE CULTURE (NO STAIN) (10/23/2024 11:47 PM EDT) Culture Positive Growth(A) 10/25/2024 9:[address] [facility] [employer] Culture 5,000 CFU/mL Jeri tropicalis SUSCEPTIBI LITY RESULT 10/25/2024 9:25 PM EDT [facility] Comment:No further workup. Urine STRUCTURE OF URINARY TRACT PROPER / Unknown 10/23/2024 11:47 PM EDT 10/24/2024 12:02 AM EDT Jacqueline Jordan APRN MICROBIOLOGY - GENERAL OR DERABLES Final Result Performing Organization Address [facility]/ZIP Co de Phone Number [facility] [employer] [facility] [address] [facility] , [address] [place] [phone] * EXTRA PINK URINE CX (10/23/2024 11:47 PM EDT) Urine STRUCTURE OF URINARY TRACT PROPER / Unknown 10/23/2024 11:47 PM EDT 10/23/2024 11:53 PM EDT Jacqueline Jordan APRN MICROBIOLOGY - GENERAL OR DERABLES Final Result [facility] [address] [place] [address] * (ABNORMAL) URINALYSIS REFLEX (10/23/2024 11:47 PM EDT) UA Color [place] 10/24/2024 12:02 AM EDT [facility] UA Appear Cloudy(A) Clear 10/24/2024 12:02 AM EDT [facility] UA Glucose 4+ (>1000mg/dL) (A) Negative mg/dL 10/24/2024 12:02 AM EDT [facility] UA Ketones Negative Negative mg/dL 10/24/2024 12:02 AM EDT [facility] UA Blood 3+ (>= 1.0 mg/dL)(A) Negative 10/24/2024 12:02 AM EDT [facility] UA pH 6.5 5.0 - 8.0 pH 10/24/2024 12:02 AM EDT [facility] UA Protein Trace (10-20 mg/dL) Negative mg/dL 10/24/2024 12:02 AM EDT [facility] UA Urobilinogen Normal <=1 mg/dL 12:02 AM EDT [facility] UA Bili Negative Negative 10/24/2024 12:02 AM EDT [facility] UA Nitrite Negative Negative 10/24/2024 12:02 AM EDT [facility] UA Leuk Est 1+ (25 Maude/mcl)(A) Negative 10/24/2024 12:02 AM EDT [facility] UA Spec Grav 1.023 1.001 - 1.035 no units 10/24/2024 12:02 AM EDT [facility] Comment:Reference range aneesh d for random specimens only. UA WBC 8(H) 0 - 4 /HPF 10/24/2024 12:02 AM EDT [facility] UA RBC >182(H) 0 - 3 /HPF 10/24/2024 12:02 AM EDT [facility] Urine STRUCTURE OF URINARY TRACT PROPER / Unknown 10/23/2024 11:47 PM EDT 10/23/2024 11:53 PM EDT us Jacqueline Jordan MARKETING ANALYTICS ANALYST URINE ORDERABLES Final Re sult [facility] [address] [facility] , [address] [place] [phone] * (ABNORMAL) GLUCOSE METER POC (10/23/2024 10:43 PM EDT) [facility] Glucose Meter POC 285(H) 70 - 100 mg/dL 10/23/2024 10:45 PM EDT [facility] Sample Type Capillary 10/23/2024 10:45 PM EDT [facility] Patient Status Non-Critical Patient 10/23/2024 10:45 PM EDT [facility] Blood BLOOD SPECIMEN / Unknown 10/23/2024 10:43 PM EDT 10/23/2024 10:45 PM EDT us Igor Lynn MD POINT OF CARE TEST ORDERABLES Fi nal Result Performing Organization Address City/[facility]/ZIP Co de Phone Number [facility] [address] [place] [address] * ECG AND WAVEFORMS - TELEMETRY (10/23/2024 7:01 PM EDT) [facility] ECG INTERPRET NSR [facility] 10/23/2024 7:01 PM EDT Narrative [facility] - 10/23/2024 7:48 PM EDT ROUTINE(CW) AK 0.18 QRS 0.08 RR 0.81 QT 0.38 QTc 0.42 See Clinical Report link for waveform capture us Unknown Provider POINT OF CARE CARDIOLOGY Final Result Performing Organization Address City/[facility]/ZIP Co de Phone Number [facility] [address] [place] [address] * (ABNORMAL) CBC WITH DIFF (10/23/2024 6:53 PM EDT) [facility] WBC 6.5 3.7 - 10.3 x10(3)/mcL 10/23/2024 7:23 PM EDT [facility] RBC 4.68 4.60 - 6.10 x10(6)/mcL 10/23/2024 7:23 PM EDT [facility] Hgb 13.8 13.7 - 17.5 g/dL 10/23/2024 7:23 PM EDT [facility] Hct 42.9 40.0 - 51.0 % 10/23/2024 7:23 PM EDT [facility] MCV 91.7 80.0 - 100.0 fL 10/23/2024 7:23 PM EDT [facility] MCH 29.5 26.0 - 34.0 pg 10/23/2024 7:23 PM EDT [facility] MCHC 32.2 30.7 - 35.5 g/dL 10/23/2024 7:23 PM EDT [facility] RDW 15.6(H) <=14.9 % 10/23/2024 7:23 PM EDT [facility] Platelet 163 155 - 369 x10(3)/mcL 10/23/2024 7:23 PM EDT [facility] MPV 11.0 8.8 - 12.5 fL 10/23/2024 7:23 PM EDT [facility] Neut Percent 53.2 % 10/23/2024 7:23 PM EDT [facility] Comment:Neutrophils equals s egs plus bands Imm Gran% 0.3 % 10/23/2024 7:23 PM EDT [facility] Comment:Automated count of m etamyelocytes, myelocytes and promyelocytes. Lymph Percent 29.8 % 10/23/2024 7:23 PM EDT [facility] Unicoi Percent 13.3 % 10/23/2024 7:23 PM EDT [facility] Eos Percent 2.3 % 10/23/2024 7:23 PM EDT [facility] Baso Percent 1.1 % 10/23/2024 7:23 PM EDT [facility] Neut # 3.4 1.6 - 6.1 x10(3)/mcL 10/23/2024 7:23 PM EDT [facility] Comment:Neutrophils equals s egs plus bands IMMGRAN# 0.0 0.0 - 0.1 x10(3)/mcL 10/23/2024 7:23 PM EDT [facility] Comment:Automated count of m etamyelocytes, myelocytes and promyelocytes. An absolute IG <0.1 is reported as 0.0. Lymph # 1.9 1.2 - 3.9 x10(3)/mcL 10/23/2024 7:23 PM EDT [facility] [place] # 0.9 0.3 - 0.9 x10(3)/mcL 10/23/2024 7:23 PM EDT [facility] Eos# 0.2 0.0 - 0.5 x10(3)/mcL 10/23/2024 7:23 PM EDT [facility] Baso # 0.1 0.0 - 0.1 x10(3)/mcL 10/23/2024 7:23 PM EDT [facility] Blood VENOUS BLOOD / Unknown Venipuncture / Unknown 10/23/2024 6:53 PM EDT 10/23/2024 7:15 PM EDT us Elvis Morgan MD HEMATOLOGY ORDERABLES Final R esult Performing Organization Address City/[facility]/ZIP Co de Phone Number [facility], [address], [place] [address] * (ABNORMAL) GLUCOSE METER POC (10/23/2024 6:04 PM EDT) Glucose Meter POC 349(H) 70 - 100 mg/dL 10/23/2024 6:06 PM EDT [facility] Sample Type Capillary 10/23/2024 6:06 PM EDT [facility] Patient Status Non-Critical Patient 10/23/2024 6:06 PM EDT [facility] Blood BLOOD SPECIMEN / Unknown 10/23/2024 6:04 PM EDT 10/23/2024 6:06 PM EDT us Igor Lynn MD POINT OF CARE TEST ORDERABLES Fi nal Result Performing Organization Address City/[facility]/ZIP Co de Phone Number [address] [address] * (ABNORMAL) GLUCOSE METER POC (10/23/2024 3:10 PM EDT) Glucose Meter POC 304(H) 70 - 100 mg/dL 10/23/2024 3:12 PM EDT [facility] Sample Type Capillary 10/23/2024 3:12 PM EDT [facility] Patient Status Non-Critical Patient 10/23/2024 3:12 PM EDT [facility] Blood BLOOD SPECIMEN / Unknown 10/23/2024 3:10 PM EDT 10/23/2024 3:12 PM EDT us Igor Lynn MD POINT OF CARE TEST ORDERABLES Fi nal Result [facility] [address] [place] [address] * US RENAL AND BLADDER (10/23/2024 1:38 PM EDT) Anatomical Region Laterality Modality Abdomen, Pelvis Ultrasound 10/23/2024 1:38 PM EDT Impressions 10/23/2024 1:51 PM EDT No evidence of active obstructive uropathy or other acute finding. - Note: Radiology results need to be interpreted within a comprehensive clinical context. If you have questions about the radiology report, please contact the office of the ordering clinician. Narrative 10/23/2024 1:51 PM EDT US KIDNEYS AND BLADDER, 10/23/2024 1:38 PM CLINICAL HISTORY: -gross hematuria, known bladder cancer. COMPARISON: CT 08/27/2023 PROCEDURE COMMENTS: Routine sonographic evaluation of the kidneys and bladder with paper sales representative images and nut sorter operator notes sent to PACS for radiologist review. FINDINGS: RIGHT: 9.7 x 3.9 x 5.0 cm. No hydronephrosis, solid-appearing mass, or shadowing stone. LEFT: 10.3 x 4.1 x 5.3 cm. No hydronephrosis, solid-appearing mass, or shadowing stone. PELVIS: Bladder mass is not seen on this study. Procedure Note Doyle Jimenez MD - 10/23/2024 US KIDNEYS AND BLADDER, 10/23/2024 1:38 PM CLINICAL HISTORY: -gross hematuria, known bladder cancer. COMPARISON: CT 08/27/2023 PROCEDURE COMMENTS: Routine sonographic evaluation of the kidneys andbladder with paper sales representative images and nut sorter operator notes sent to PACS forradiologist review. FINDINGS: RIGHT: 9.7 x 3.9 x 5.0 cm. No hydronephrosis, solid-appearing mass, or shadowing stone. LEFT: 10.3 x 4.1 x 5.3 cm. No hydronephrosis, solid-appearing mass, or shadowing stone. PELVIS: Bladder mass is not seen on this study. IMPRESSION: No evidence of active obstructive uropathy or other acute finding. - Note: Radiology results need to be interpreted within a comprehensiveclinical context. If you have questions about the radiology report, please contactthe office of the ordering clinician. Jacqueline Jordan MARKETING ANALYTICS ANALYST IMG US ORDERABLES Final R esult * (ABNORMAL) GLUCOSE METER POC (10/23/2024 8:40 AM EDT) Glucose Meter POC 131(H) 70 - 100 mg/dL 10/23/2024 8:41 AM EDT [facility] Sample Type Capillary 10/23/2024 8:41 AM EDT [facility] Patient Status Non-Critical Patient 10/23/2024 8:41 AM EDT [facility] Blood BLOOD SPECIMEN / Unknown 10/23/2024 8:40 AM EDT 10/23/2024 8:41 AM EDT Igor Lynn MD POINT OF CARE TEST ORDERABLES nal Result [facility] [address] [place] [address] * ECG AND WAVEFORMS - TELEMETRY (10/23/2024 7:35 AM EDT) ECG INTERPRET Sinus Bradycardia [facility] 10/23/2024 7:35 AM EDT Narrative [facility] - 10/23/2024 7:59 AM EDT ROUTINE/1ST DEGREE AVB/EA AK 0.24 QRS 0.10 RR 1.13 QT 0.42 QTc 0.40 See Clinical Report link for waveform capture us Unknown Provider POINT OF CARE CARDIOLOGY Final Result Performing Organization Address City/[facility]/[place] Co de Phone Number [facility] [address] [place] [address] * (ABNORMAL) GLUCOSE METER POC (10/22/2024 11:16 PM EDT) Glucose Meter POC 153(H) 70 - 100 mg/dL 10/22/2024 11:18 PM EDT [facility] Sample Type Capillary 10/22/2024 11:18 PM EDT [facility] Patient Status Non-Critical Patient 10/22/2024 11:18 PM EDT [facility] Blood BLOOD SPECIMEN / Unknown 10/22/2024 11:16 PM EDT 10/22/2024 11:18 PM EDT us Igor Lynn MD POINT OF CARE TEST ORDERABLES Fi nal Result Performing Organization Address [facility] Co de Phone Number [facility] [address] [place] [address] * ECG AND WAVEFORMS - TELEMETRY (10/22/2024 7:00 PM EDT) [facility] ECG INTERPRET Sinus Bradycardia [facility] 10/22/2024 7:00 PM EDT Narrative [facility] - 10/22/2024 7:33 PM EDT ROUTINE(CW) AK 0.23 QRS 0.06 RR 1.07 QT 0.39 QTc 0.38 See Clinical Report link for waveform capture us Unknown Provider POINT OF CARE CARDIOLOGY Final Result Performing Organization Address [facility] Co de Phone Number [facility] [address] [place] [address] * IR REVAS TIB PER ART UNILAT INIT VES W MERCERIZING RANGE FEEDER (10/22/2024 6:17 PM EDT) Anatomical Region Laterality Modality Interventional R adiology Impressions 10/26/2024 1:19 PM EDT : Technically successful right TPT and peroneal artery angioplasty with 4 x 100 mm drug-coated balloon with resolution of 99% stenosis to less than 10% residual stenosis. Technically successful right popliteal artery angioplasty with 4 x 100 mm drug-coated balloon with resolution of 60% stenosis to less than 10% residual stenosis. This is separate distinct lesion to the peroneal artery. Patient has good rapid runoff from the femoral artery down to the tibial vessels postprocedure with collateralization to the dorsalis pedis. The patient should continue aggressive wound care for wound healing. TIYariel [id number] Narrative 10/26/2024 1:19 PM EDT ACCESSION NUMBER: [id number] DATE OF PROCEDURE: 10/22/2024. PREOPERATIVE DIAGNOSIS: Right lower extremity PAD (peripheral arterial disease) with nonhealing ulceration. POSTOPERATIVE DIAGNOSIS: Right lower extremity PAD (peripheral arterial disease) with nonhealing ulceration. PROCEDURES: Access of left common femoral artery with 5-Russian sheath with ultrasound guidance. Omni catheter placed in the aorta with aortogram with runoff. Omni catheter placed in the aortic bifurcation with aortoiliac angiogram with runoff. Crossing bifurcation with catheter placed in the right common femoral artery. Right lower extremity angiogram with runoff. Left lower extremity angiogram with runoff. 5-Russian Destination sheath in the right common femoral artery. Catheter in the right popliteal artery with additional tibial angiogram with runoff. Right peroneal artery angioplasty with 4 x 100 mm drug-coated balloon. Right popliteal artery angioplasty with 4 x 100 mm drug-coated balloon. Completion angiogram. Mynx placement in the left common femoral artery. SURGEON: Elvis Morgan M.D. ANESTHESIA: Local with sedation. SEDATION TIME: 46 minutes. SEDATION AGENTS: Versed and fentanyl. CONTRAST USED: 115 mL FLUORO TIME: 9.8 minutes, 765 mGy. SPECIMEN: None. DRAINS: None. DISPOSITION: Patient stable to Recovery Room. INDICATIONS FOR PROCEDURE: The patient is an 79-year-old male with a history of right lower extremity PAD with ulceration. The patient had a recent angiogram with intervention by in [place] approximately 2 weeks ago. The patient, however, presented with worsening right lower extremity ulceration. The patient underwent evaluation with arterial study and was found to have multifocal stenosis. Due to the worsening lower extremity ulceration, the patient was offered angiogram with possible intervention. Indications, risks and benefits of the procedure were explained to the patient. Patient understands and informed consent was obtained. DESCRIPTION OF PROCEDURE: The patient was identified and brought to the School Photograph Editor. After adequate sedation was obtained, the patient was prepped and draped in the usual sterile fashion in supine position over the entire left lower abdomen and groin. Left common femoral artery was accessed with a large Bore needle with ultrasound guidance. Through this needle, a wire was inserted and 5-Russian sheath was inserted. The right common femoral artery was found to be patent. Tip of the needle was visualized and photograph was taken. At this time, Omni catheter was advanced over a wire and placed in the suprarenal aorta. Aortogram was performed. Catheter was brought down to the aortic bifurcation and aortoiliac angiogram was performed in oblique positions. Utilizing catheter and wire, we were able to cross the bifurcation and advance the catheter into the right common femoral artery. Right lower extremity angiogram was performed in stations from the groin down to the foot. At this time, left lower extremity angiogram was performed in stations from the groin down to the foot. At this time, we noted that there was multiple stenosis in the SFA and popliteal artery with critical stenosis in the peroneal artery with single-vessel runoff. Decision was made at this time to intervene on the lesion. Patient was given 5000 units of systemic heparin. After waiting for five minutes, the 5-Russian sheath was exchanged for a 5-Russian Destination sheath placed in the right common femoral artery. At this time, the catheter was negotiated through the stenosis in the popliteal artery, which was 60-70%, into the TPT and the peroneal artery. The TPT and peroneal artery were found to have 99% stenosis. Additional angiogram was performed confirming the diagnosis. At this time, with a wire in place, patient was given 5000 units of systemic heparin. At this time, the popliteal artery and peroneal artery were individually angioplastied with 4 x 100 mm drug-coated balloons. These were 2 separate distinct lesions. After the balloon was inflated for 3 minutes, angiogram was performed and it revealed resolution of peroneal artery stenosis to less than 10% residual stenosis. The popliteal artery was angioplastied with a 4 x 100 mm drug-coated balloon and it revealed resolution of 60% stenosis to less than 10% residual stenosis. After this was completed, angiogram was performed with good runoff. All catheters, wires and sheaths were removed. The rent left by the sheath was then occluded with a Mynx device. Good hemostasis was achieved. Patient tolerated the procedure well and was transferred back to Recovery Room in stable condition. RADIOGRAPHIC INTERPRETATION: Aortogram with runoff revealed patent renal arteries bilaterally. The mesenteric artery appeared to be patent. There were patent bilateral common iliac arteries, external iliac arteries and hypogastric vessels. There was a patent left external iliac artery stent. There was 40% stenosis in the right external iliac artery, which was left alone and untreated. Right lower extremity angiogram with runoff: Right common femoral artery was patent with patent SFA, profunda and popliteal artery with single-vessel runoff via peroneal artery with collateralization of the dorsalis pedis. The SFA and popliteal artery was found to have multifocal stenosis with calcification with approximately 40% stenosis. The below-knee popliteal artery was found to have 60% stenosis. There was 99% stenosis in the TPT into the peroneal artery. Posterior tibial artery was occluded. Anterior tibial artery was occluded shortly after takeoff and reconstituted distally via the peroneal artery to the dorsalis pedis. Left lower extremity angiogram with runoff: Left common femoral artery was patent with patent profunda. The common femoral artery was found to have calcified plaque noted. The SFA was calcified diffusely but patent. There was again single-vessel runoff via the peroneal artery with collateralization to the dorsal pedis on the left. Anterior tibial artery and posterior tibial artery were occluded. CATHETER-BASED INTERVENTION: After we placed the catheter in the popliteal artery, additional tibial angiogram was performed. 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 These were separate distinct lesions. The TPT and peroneal artery were angioplastied with 4 x 100 mm drug-coated balloon with resolution of 99% stenosis to less than 10% residual stenosis. The popliteal artery was angioplastied with 4 x 100 mm drug-coated balloon with resolution of 60-70% stenosis to less than 10% residual stenosis. Postprocedure angiogram revealed rapid flow from the femoral artery down to the TPT to the peroneal artery to collateralization to the dorsalis pedis to the foot. us Elvis Morgan MD IMG IR ORDERABLES Final Resul t * IR REVAS FEM POP ART UNILAT W MERCERIZING RANGE FEEDER (10/22/2024 6:17 PM EDT) Anatomical Region Laterality Modality Interventional R adiology Impressions 10/26/2024 1:19 PM EDT : Technically successful right TPT and peroneal artery angioplasty with 4 x 100 mm drug-coated balloon with resolution of 99% stenosis to less than 10% residual stenosis. Technically successful right popliteal artery angioplasty with 4 x 100 mm drug-coated balloon with resolution of 60% stenosis to less than 10% residual stenosis. This is separate distinct lesion to the peroneal artery. Patient has good rapid runoff from the femoral artery down to the tibial vessels postprocedure with collateralization to the dorsalis pedis. The patient should continue aggressive wound care for wound healing. TID [id number] Narrative 10/26/2024 1:19 PM EDT ACCESSION NUMBER: [id number] DATE OF PROCEDURE: 10/22/2024. PREOPERATIVE DIAGNOSIS: Right lower extremity PAD (peripheral arterial disease) with nonhealing ulceration. POSTOPERATIVE DIAGNOSIS: Right lower extremity PAD (peripheral arterial disease) with nonhealing ulceration. PROCEDURES: Access of left common femoral artery with 5-Russian sheath with ultrasound guidance. Omni catheter placed in the aorta with aortogram with runoff. Omni catheter placed in the aortic bifurcation with aortoiliac angiogram with runoff. Crossing bifurcation with catheter placed in the right common femoral artery. Right lower extremity angiogram with runoff. Left lower extremity angiogram with runoff. 5-Russian Destination sheath in the right common femoral artery. Catheter in the right popliteal artery with additional tibial angiogram with runoff. Right peroneal artery angioplasty with 4 x 100 mm drug-coated balloon. Right popliteal artery angioplasty with 4 x 100 mm drug-coated balloon. Completion angiogram. Mynx placement in the left common femoral artery. SURGEON: Elvis Morgan M.D. ANESTHESIA: Local with sedation. SEDATION TIME: 46 minutes. SEDATION AGENTS: Versed and fentanyl. CONTRAST USED: 115 mL FLUORO TIME: 9.8 minutes, 765 mGy. SPECIMEN: None. DRAINS: None. DISPOSITION: Patient stable to Recovery Room. INDICATIONS FOR PROCEDURE: The patient is an 79-year-old male with a history of right lower extremity PAD with ulceration. The patient had a recent angiogram with intervention by in [place] approximately 2 weeks ago. The patient, however, presented with worsening right lower extremity ulceration. The patient underwent evaluation with arterial study and was found to have multifocal stenosis. Due to the worsening lower extremity ulceration, the patient was offered angiogram with possible intervention. Indications, risks and benefits of the procedure were explained to the patient. Patient understands and informed consent was obtained. DESCRIPTION OF PROCEDURE: The patient was identified and brought to the [facility]. After adequate sedation was obtained, the patient was prepped and draped in the usual sterile fashion in supine position over the entire left lower abdomen and groin. Left common femoral artery was accessed with a large Bore needle with ultrasound guidance. Through this needle, a wire was inserted and 5-Russian sheath was inserted. The right common femoral artery was found to be patent. Tip of the needle was visualized and photograph was taken. At this time, Omni catheter was advanced over a wire and placed in the suprarenal aorta. Aortogram was performed. Catheter was brought down to the aortic bifurcation and aortoiliac angiogram was performed in oblique positions. Utilizing catheter and wire, we were able to cross the bifurcation and advance the catheter into the right common femoral artery. Right lower extremity angiogram was performed in stations from the groin down to the foot. At this time, left lower extremity angiogram was performed in stations from the groin down to the foot. At this time, we noted that there was multiple stenosis in the SFA and popliteal artery with critical stenosis in the peroneal artery with single-vessel runoff. Decision was made at this time to intervene on the lesion. Patient was given 5000 units of systemic heparin. After waiting for five minutes, the 5-Russian sheath was exchanged for a 5-Russian Destination sheath placed in the right common femoral artery. At this time, the catheter was negotiated through the stenosis in the popliteal artery, which was 60-70%, into the TPT and the peroneal artery. The TPT and peroneal artery were found to have 99% stenosis. Additional angiogram was performed confirming the diagnosis. At this time, with a wire in place, patient was given 5000 units of systemic heparin. At this time, the popliteal artery and peroneal artery were individually angioplastied with 4 x 100 mm drug-coated balloons. These were 2 separate distinct lesions. After the balloon was inflated for 3 minutes, angiogram was performed and it revealed resolution of peroneal artery stenosis to less than 10% residual stenosis. The popliteal artery was angioplastied with a 4 x 100 mm drug-coated balloon and it revealed resolution of 60% stenosis to less than 10% residual stenosis. After this was completed, angiogram was performed with good runoff. All catheters, wires and sheaths were removed. The rent left by the sheath was then occluded with a Mynx device. Good hemostasis was achieved. Patient tolerated the procedure well and was transferred back to Recovery Room in stable condition. RADIOGRAPHIC INTERPRETATION: Aortogram with runoff revealed patent renal arteries bilaterally. The mesenteric artery appeared to be patent. There were patent bilateral common iliac arteries, external iliac arteries and hypogastric vessels. There was a patent left external iliac artery stent. There was 40% stenosis in the right external iliac artery, which was left alone and untreated. Right lower extremity angiogram with runoff: Right common femoral artery was patent with patent SFA, profunda and popliteal artery with single-vessel runoff via peroneal artery with collateralization of the dorsalis pedis. The SFA and popliteal artery was found to have multifocal stenosis with calcification with approximately 40% stenosis. The below-knee popliteal artery was found to have 60% stenosis. There was 99% stenosis in the TPT into the peroneal artery. Posterior tibial artery was occluded. Anterior tibial artery was occluded shortly after takeoff and reconstituted distally via the peroneal artery to the dorsalis pedis. Left lower extremity angiogram with runoff: Left common femoral artery was patent with patent profunda. The common femoral artery was found to have calcified plaque noted. The SFA was calcified diffusely but patent. There was again single-vessel runoff via the peroneal artery with collateralization to the dorsal pedis on the left. Anterior tibial artery and posterior tibial artery were occluded. CATHETER-BASED INTERVENTION: After we placed the catheter in the popliteal artery, additional tibial angiogram was performed. 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 These were separate distinct lesions. The TPT and peroneal artery were angioplastied with 4 x 100 mm drug-coated balloon with resolution of 99% stenosis to less than 10% residual stenosis. The popliteal artery was angioplastied with 4 x 100 mm drug-coated balloon with resolution of 60-70% stenosis to less than 10% residual stenosis. Postprocedure angiogram revealed rapid flow from the femoral artery down to the TPT to the peroneal artery to collateralization to the dorsalis pedis to the foot. us Elvis Morgan MD IMG IR ORDERABLES Final Resul t * IR ULTRASOUND GUIDED VASCULAR ACCESS (10/22/2024 6:17 PM EDT) Anatomical Region Laterality Modality Interventional R adiology Impressions 10/26/2024 1:19 PM EDT : Technically successful right TPT and peroneal artery angioplasty with 4 x 100 mm drug-coated balloon with resolution of 99% stenosis to less than 10% residual stenosis. Technically successful right popliteal artery angioplasty with 4 x 100 mm drug-coated balloon with resolution of 60% stenosis to less than 10% residual stenosis. This is separate distinct lesion to the peroneal artery. Patient has good rapid runoff from the femoral artery down to the tibial vessels postprocedure with collateralization to the dorsalis pedis. The patient should continue aggressive wound care for wound healing. TID [id number] Narrative 10/26/2024 1:19 PM EDT ACCESSION NUMBER: [id number] DATE OF PROCEDURE: 10/22/2024. PREOPERATIVE DIAGNOSIS: Right lower extremity PAD (peripheral arterial disease) with nonhealing ulceration. POSTOPERATIVE DIAGNOSIS: Right lower extremity PAD (peripheral arterial disease) with nonhealing ulceration. PROCEDURES: Access of left common femoral artery with 5-Russian sheath with ultrasound guidance. Omni catheter placed in the aorta with aortogram with runoff. Omni catheter placed in the aortic bifurcation with aortoiliac angiogram with runoff. Crossing bifurcation with catheter placed in the right common femoral artery. Right lower extremity angiogram with runoff. Left lower extremity angiogram with runoff. 5-Russian Destination sheath in the right common femoral artery. Catheter in the right popliteal artery with additional tibial angiogram with runoff. Right peroneal artery angioplasty with 4 x 100 mm drug-coated balloon. Right popliteal artery angioplasty with 4 x 100 mm drug-coated balloon. Completion angiogram. Mynx placement in the left common femoral artery. SURGEON: Elvis Morgan M.D. ANESTHESIA: Local with sedation. SEDATION TIME: 46 minutes. SEDATION AGENTS: Versed and fentanyl. CONTRAST USED: 115 mL FLUORO TIME: 9.8 minutes, 765 mGy. SPECIMEN: None. DRAINS: None. DISPOSITION: Patient stable to Recovery Room. INDICATIONS FOR PROCEDURE: The patient is an 79-year-old male with a history of right lower extremity PAD with ulceration. The patient had a recent angiogram with intervention by in [place] approximately 2 weeks ago. The patient, however, presented with worsening right lower extremity ulceration. The patient underwent evaluation with arterial study and was found to have multifocal stenosis. Due to the worsening lower extremity ulceration, the patient was offered angiogram with possible intervention. Indications, risks and benefits of the procedure were explained to the patient. Patient understands and informed consent was obtained. DESCRIPTION OF PROCEDURE: The patient was identified and brought to the [facility]. After adequate sedation was obtained, the patient was prepped and draped in the usual sterile fashion in supine position over the entire left lower abdomen and groin. Left common femoral artery was accessed with a large Bore needle with ultrasound guidance. Through this needle, a wire was inserted and 5-Russian sheath was inserted. The right common femoral artery was found to be patent. Tip of the needle was visualized and photograph was taken. At this time, Omni catheter was advanced over a wire and placed in the suprarenal aorta. Aortogram was performed. Catheter was brought down to the aortic bifurcation and aortoiliac angiogram was performed in oblique positions. Utilizing catheter and wire, we were able to cross the bifurcation and advance the catheter into the right common femoral artery. Right lower extremity angiogram was performed in stations from the groin down to the foot. At this time, left lower extremity angiogram was performed in stations from the groin down to the foot. At this time, we noted that there was multiple stenosis in the SFA and popliteal artery with critical stenosis in the peroneal artery with single-vessel runoff. Decision was made at this time to intervene on the lesion. Patient was given 5000 units of systemic heparin. After waiting for five minutes, the 5-Russian sheath was exchanged for a 5-Russian Destination sheath placed in the right common femoral artery. At this time, the catheter was negotiated through the stenosis in the popliteal artery, which was 60-70%, into the TPT and the peroneal artery. The TPT and peroneal artery were found to have 99% stenosis. Additional angiogram was performed confirming the diagnosis. At this time, with a wire in place, patient was given 5000 units of systemic heparin. At this time, the popliteal artery and peroneal artery were individually angioplastied with 4 x 100 mm drug-coated balloons. These were 2 separate distinct lesions. After the balloon was inflated for 3 minutes, angiogram was performed and it revealed resolution of peroneal artery stenosis to less than 10% residual stenosis. The popliteal artery was angioplastied with a 4 x 100 mm drug-coated balloon and it revealed resolution of 60% stenosis to less than 10% residual stenosis. After this was completed, angiogram was performed with good runoff. All catheters, wires and sheaths were removed. The rent left by the sheath was then occluded with a Mynx device. Good hemostasis was achieved. Patient tolerated the procedure well and was transferred back to Recovery Room in stable condition. RADIOGRAPHIC INTERPRETATION: Aortogram with runoff revealed patent renal arteries bilaterally. The mesenteric artery appeared to be patent. There were patent bilateral common iliac arteries, external iliac arteries and hypogastric vessels. There was a patent left external iliac artery stent. There was 40% stenosis in the right external iliac artery, which was left alone and untreated. Right lower extremity angiogram with runoff: Right common femoral artery was patent with patent SFA, profunda and popliteal artery with single-vessel runoff via peroneal artery with collateralization of the dorsalis pedis. The SFA and popliteal artery was found to have multifocal stenosis with calcification with approximately 40% stenosis. The below-knee popliteal artery was found to have 60% stenosis. There was 99% stenosis in the TPT into the peroneal artery. Posterior tibial artery was occluded. Anterior tibial artery was occluded shortly after takeoff and reconstituted distally via the peroneal artery to the dorsalis pedis. Left lower extremity angiogram with runoff: Left common femoral artery was patent with patent profunda. The common femoral artery was found to have calcified plaque noted. The SFA was calcified diffusely but patent. There was again single-vessel runoff via the peroneal artery with collateralization to the dorsal pedis on the left. Anterior tibial artery and posterior tibial artery were occluded. CATHETER-BASED INTERVENTION: After we placed the catheter in the popliteal artery, additional tibial angiogram was performed. 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 These were separate distinct lesions. The TPT and peroneal artery were angioplastied with 4 x 100 mm drug-coated balloon with resolution of 99% stenosis to less than 10% residual stenosis. The popliteal artery was angioplastied with 4 x 100 mm drug-coated balloon with resolution of 60-70% stenosis to less than 10% residual stenosis. Postprocedure angiogram revealed rapid flow from the femoral artery down to the TPT to the peroneal artery to collateralization to the dorsalis pedis to the foot. us Elvis Morgan MD IMG IR ORDERABLES Final Resul t * IR ANGIOGRAM EXTREMITY BILATERAL (10/22/2024 6:17 PM EDT) Anatomical Region Laterality Modality Interventional R adiology Impressions 10/26/2024 1:19 PM EDT : Technically successful right TPT and peroneal artery angioplasty with 4 x 100 mm drug-coated balloon with resolution of 99% stenosis to less than 10% residual stenosis. Technically successful right popliteal artery angioplasty with 4 x 100 mm drug-coated balloon with resolution of 60% stenosis to less than 10% residual stenosis. This is separate distinct lesion to the peroneal artery. Patient has good rapid runoff from the femoral artery down to the tibial vessels postprocedure with collateralization to the dorsalis pedis. The patient should continue aggressive wound care for wound healing. TID [id number] Narrative 10/26/2024 1:19 PM EDT ACCESSION NUMBER: [id number] DATE OF PROCEDURE: 10/22/2024. PREOPERATIVE DIAGNOSIS: Right lower extremity PAD (peripheral arterial disease) with nonhealing ulceration. POSTOPERATIVE DIAGNOSIS: Right lower extremity PAD (peripheral arterial disease) with nonhealing ulceration. PROCEDURES: Access of left common femoral artery with 5-Russian sheath with ultrasound guidance. Omni catheter placed in the aorta with aortogram with runoff. Omni catheter placed in the aortic bifurcation with aortoiliac angiogram with runoff. Crossing bifurcation with catheter placed in the right common femoral artery. Right lower extremity angiogram with runoff. Left lower extremity angiogram with runoff. 5-Russian Destination sheath in the right common femoral artery. Catheter in the right popliteal artery with additional tibial angiogram with runoff. Right peroneal artery angioplasty with 4 x 100 mm drug-coated balloon. Right popliteal artery angioplasty with 4 x 100 mm drug-coated balloon. Completion angiogram. Mynx placement in the left common femoral artery. SURGEON: Elvis Morgan M.D. ANESTHESIA: Local with sedation. SEDATION TIME: 46 minutes. SEDATION AGENTS: Versed and fentanyl. CONTRAST USED: 115 mL FLUORO TIME: 9.8 minutes, 765 mGy. SPECIMEN: None. DRAINS: None. DISPOSITION: Patient stable to Recovery Room. INDICATIONS FOR PROCEDURE: The patient is an 79-year-old male with a history of right lower extremity PAD with ulceration. The patient had a recent angiogram with intervention by in [place] approximately 2 weeks ago. The patient, however, presented with worsening right lower extremity ulceration. The patient underwent evaluation with arterial study and was found to have multifocal stenosis. Due to the worsening lower extremity ulceration, the patient was offered angiogram with possible intervention. Indications, risks and benefits of the procedure were explained to the patient. Patient understands and informed consent was obtained. DESCRIPTION OF PROCEDURE: The patient was identified and brought to the [facility]. After adequate sedation was obtained, the patient was prepped and draped in the usual sterile fashion in supine position over the entire left lower abdomen and groin. Left common femoral artery was accessed with a large Bore needle with ultrasound guidance. Through this needle, a wire was inserted and 5-Russian sheath was inserted. The right common femoral artery was found to be patent. Tip of the needle was visualized and photograph was taken. At this time, Omni catheter was advanced over a wire and placed in the suprarenal aorta. Aortogram was performed. Catheter was brought down to the aortic bifurcation and aortoiliac angiogram was performed in oblique positions. Utilizing catheter and wire, we were able to cross the bifurcation and advance the catheter into the right common femoral artery. Right lower extremity angiogram was performed in stations from the groin down to the foot. At this time, left lower extremity angiogram was performed in stations from the groin down to the foot. At this time, we noted that there was multiple stenosis in the SFA and popliteal artery with critical stenosis in the peroneal artery with single-vessel runoff. Decision was made at this time to intervene on the lesion. Patient was given 5000 units of systemic heparin. After waiting for five minutes, the 5-Russian sheath was exchanged for a 5-Russian Destination sheath placed in the right common femoral artery. At this time, the catheter was negotiated through the stenosis in the popliteal artery, which was 60-70%, into the TPT and the peroneal artery. The TPT and peroneal artery were found to have 99% stenosis. Additional angiogram was performed confirming the diagnosis. At this time, with a wire in place, patient was given 5000 units of systemic heparin. At this time, the popliteal artery and peroneal artery were individually angioplastied with 4 x 100 mm drug-coated balloons. These were 2 separate distinct lesions. After the balloon was inflated for 3 minutes, angiogram was performed and it revealed resolution of peroneal artery stenosis to less than 10% residual stenosis. The popliteal artery was angioplastied with a 4 x 100 mm drug-coated balloon and it revealed resolution of 60% stenosis to less than 10% residual stenosis. After this was completed, angiogram was performed with good runoff. All catheters, wires and sheaths were removed. The rent left by the sheath was then occluded with a Mynx device. Good hemostasis was achieved. Patient tolerated the procedure well and was transferred back to Recovery Room in stable condition. RADIOGRAPHIC INTERPRETATION: Aortogram with runoff revealed patent renal arteries bilaterally. The mesenteric artery appeared to be patent. There were patent bilateral common iliac arteries, external iliac arteries and hypogastric vessels. There was a patent left external iliac artery stent. There was 40% stenosis in the right external iliac artery, which was left alone and untreated. Right lower extremity angiogram with runoff: Right common femoral artery was patent with patent SFA, profunda and popliteal artery with single-vessel runoff via peroneal artery with collateralization of the dorsalis pedis. The SFA and popliteal artery was found to have multifocal stenosis with calcification with approximately 40% stenosis. The below-knee popliteal artery was found to have 60% stenosis. There was 99% stenosis in the TPT into the peroneal artery. Posterior tibial artery was occluded. Anterior tibial artery was occluded shortly after takeoff and reconstituted distally via the peroneal artery to the dorsalis pedis. Left lower extremity angiogram with runoff: Left common femoral artery was patent with patent profunda. The common femoral artery was found to have calcified plaque noted. The SFA was calcified diffusely but patent. There was again single-vessel runoff via the peroneal artery with collateralization to the dorsal pedis on the left. Anterior tibial artery and posterior tibial artery were occluded. CATHETER-BASED INTERVENTION: After we placed the catheter in the popliteal artery, additional tibial angiogram was performed. 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 These were separate distinct lesions. The TPT and peroneal artery were angioplastied with 4 x 100 mm drug-coated balloon with resolution of 99% stenosis to less than 10% residual stenosis. The popliteal artery was angioplastied with 4 x 100 mm drug-coated balloon with resolution of 60-70% stenosis to less than 10% residual stenosis. Postprocedure angiogram revealed rapid flow from the femoral artery down to the TPT to the peroneal artery to collateralization to the dorsalis pedis to the foot. us Elvis Morgan MD IMG IR ORDERABLES Final Resul t * IR ABDOMINAL AORTOGRAM SERIALOGRAM (10/22/2024 6:17 PM EDT) Anatomical Region Laterality Modality Interventional R adiology Impressions 10/26/2024 1:19 PM EDT : Technically successful right TPT and peroneal artery angioplasty with 4 x 100 mm drug-coated balloon with resolution of 99% stenosis to less than 10% residual stenosis. Technically successful right popliteal artery angioplasty with 4 x 100 mm drug-coated balloon with resolution of 60% stenosis to less than 10% residual stenosis. This is separate distinct lesion to the peroneal artery. Patient has good rapid runoff from the femoral artery down to the tibial vessels postprocedure with collateralization to the dorsalis pedis. The patient should continue aggressive wound care for wound healing. TID [id number] Narrative 10/26/2024 1:19 PM EDT ACCESSION NUMBER: [id number] DATE OF PROCEDURE: 10/22/2024. PREOPERATIVE DIAGNOSIS: Right lower extremity PAD (peripheral arterial disease) with nonhealing ulceration. POSTOPERATIVE DIAGNOSIS: Right lower extremity PAD (peripheral arterial disease) with nonhealing ulceration. PROCEDURES: Access of left common femoral artery with 5-Russian sheath with ultrasound guidance. Omni catheter placed in the aorta with aortogram with runoff. Omni catheter placed in the aortic bifurcation with aortoiliac angiogram with runoff. Crossing bifurcation with catheter placed in the right common femoral artery. Right lower extremity angiogram with runoff. Left lower extremity angiogram with runoff. 5-Russian Destination sheath in the right common femoral artery. Catheter in the right popliteal artery with additional tibial angiogram with runoff. Right peroneal artery angioplasty with 4 x 100 mm drug-coated balloon. Right popliteal artery angioplasty with 4 x 100 mm drug-coated balloon. Completion angiogram. Mynx placement in the left common femoral artery. SURGEON: Elvis Morgan M.D. ANESTHESIA: Local with sedation. SEDATION TIME: 46 minutes. SEDATION AGENTS: Versed and fentanyl. CONTRAST USED: 115 mL FLUORO TIME: 9.8 minutes, 765 mGy. SPECIMEN: None. DRAINS: None. DISPOSITION: Patient stable to Recovery Room. INDICATIONS FOR PROCEDURE: The patient is an 79-year-old male with a history of right lower extremity PAD with ulceration. The patient had a recent angiogram with intervention by in [place] approximately 2 weeks ago. The patient, however, presented with worsening right lower extremity ulceration. The patient underwent evaluation with arterial study and was found to have multifocal stenosis. Due to the worsening lower extremity ulceration, the patient was offered angiogram with possible intervention. Indications, risks and benefits of the procedure were explained to the patient. Patient understands and informed consent was obtained. DESCRIPTION OF PROCEDURE: The patient was identified and brought to the [facility]. After adequate sedation was obtained, the patient was prepped and draped in the usual sterile fashion in supine position over the entire left lower abdomen and groin. Left common femoral artery was accessed with a large Bore needle with ultrasound guidance. Through this needle, a wire was inserted and 5-Russian sheath was inserted. The right common femoral artery was found to be patent. Tip of the needle was visualized and photograph was taken. At this time, Omni catheter was advanced over a wire and placed in the suprarenal aorta. Aortogram was performed. Catheter was brought down to the aortic bifurcation and aortoiliac angiogram was performed in oblique positions. Utilizing catheter and wire, we were able to cross the bifurcation and advance the catheter into the right common femoral artery. Right lower extremity angiogram was performed in stations from the groin down to the foot. At this time, left lower extremity angiogram was performed in stations from the groin down to the foot. At this time, we noted that there was multiple stenosis in the SFA and popliteal artery with critical stenosis in the peroneal artery with single-vessel runoff. Decision was made at this time to intervene on the lesion. Patient was given 5000 units of systemic heparin. After waiting for five minutes, the 5-Russian sheath was exchanged for a 5-Russian Destination sheath placed in the right common femoral artery. At this time, the catheter was negotiated through the stenosis in the popliteal artery, which was 60-70%, into the TPT and the peroneal artery. The TPT and peroneal artery were found to have 99% stenosis. Additional angiogram was performed confirming the diagnosis. At this time, with a wire in place, patient was given 5000 units of systemic heparin. At this time, the popliteal artery and peroneal artery were individually angioplastied with 4 x 100 mm drug-coated balloons. These were 2 separate distinct lesions. After the balloon was inflated for 3 minutes, angiogram was performed and it revealed resolution of peroneal artery stenosis to less than 10% residual stenosis. The popliteal artery was angioplastied with a 4 x 100 mm drug-coated balloon and it revealed resolution of 60% stenosis to less than 10% residual stenosis. After this was completed, angiogram was performed with good runoff. All catheters, wires and sheaths were removed. The rent left by the sheath was then occluded with a Mynx device. Good hemostasis was achieved. Patient tolerated the procedure well and was transferred back to Recovery Room in stable condition. RADIOGRAPHIC INTERPRETATION: Aortogram with runoff revealed patent renal arteries bilaterally. The mesenteric artery appeared to be patent. There were patent bilateral common iliac arteries, external iliac arteries and hypogastric vessels. There was a patent left external iliac artery stent. There was 40% stenosis in the right external iliac artery, which was left alone and untreated. Right lower extremity angiogram with runoff: Right common femoral artery was patent with patent SFA, profunda and popliteal artery with single-vessel runoff via peroneal artery with collateralization of the dorsalis pedis. The SFA and popliteal artery was found to have multifocal stenosis with calcification with approximately 40% stenosis. The below-knee popliteal artery was found to have 60% stenosis. There was 99% stenosis in the TPT into the peroneal artery. Posterior tibial artery was occluded. Anterior tibial artery was occluded shortly after takeoff and reconstituted distally via the peroneal artery to the dorsalis pedis. Left lower extremity angiogram with runoff: Left common femoral artery was patent with patent profunda. The common femoral artery was found to have calcified plaque noted. The SFA was calcified diffusely but patent. There was again single-vessel runoff via the peroneal artery with collateralization to the dorsal pedis on the left. Anterior tibial artery and posterior tibial artery were occluded. CATHETER-BASED INTERVENTION: After we placed the catheter in the popliteal artery, additional tibial angiogram was performed. 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 These were separate distinct lesions. The TPT and peroneal artery were angioplastied with 4 x 100 mm drug-coated balloon with resolution of 99% stenosis to less than 10% residual stenosis. The popliteal artery was angioplastied with 4 x 100 mm drug-coated balloon with resolution of 60-70% stenosis to less than 10% residual stenosis. Postprocedure angiogram revealed rapid flow from the femoral artery down to the TPT to the peroneal artery to collateralization to the dorsalis pedis to the foot. Elvis Morgan MD [facility] ORDERABLES Final Resul t * (ABNORMAL) GLUCOSE METER POC (10/22/2024 11:59 AM EDT) [facility] Glucose Meter POC 147(H) 70 - 100 mg/dL 10/22/2024 12:00 PM EDT [facility] Sample Type Capillary 10/22/2024 12:00 PM EDT [facility] Patient Status Non-Critical Patient 10/22/2024 12:00 PM EDT [facility] Blood BLOOD SPECIMEN / Unknown 10/22/2024 11:59 AM EDT 10/22/2024 12:00 PM EDT Igor Lynn MD POINT OF CARE TEST ORDERABLES Fi nal Result [address] [id number] * (ABNORMAL) GLUCOSE METER POC (10/22/2024 8:07 AM EDT) Glucose Meter POC 150(H) 70 - 100 mg/dL 10/22/2024 8:09 AM EDT [facility] Sample Type Capillary 10/22/2024 8:09 AM EDT [facility] Patient Status Non-Critical Patient 10/22/2024 8:09 AM EDT [facility] Blood BLOOD SPECIMEN / Unknown 10/22/2024 8:07 AM EDT 10/22/2024 8:09 AM EDT us Igor Lynn MD POINT OF CARE TEST ORDERABLES Fi nal Result Performing Organization Address [facility]/[place] Co de Phone Number [address] [phone] * (ABNORMAL) GLUCOSE METER POC (10/21/2024 9:30 PM EDT) Glucose Meter POC 278(H) 70 - 100 mg/dL 10/21/2024 9:32 PM EDT [facility] Sample Type Capillary 10/21/2024 9:32 PM EDT [facility] Patient Status Non-Critical Patient 10/21/2024 9:32 PM EDT [facility] Blood BLOOD SPECIMEN / Unknown 10/21/2024 9:30 PM EDT 10/21/2024 9:32 PM EDT us Igor Lynn MD POINT OF CARE TEST ORDERABLES Fi nal Result Performing Organization Address [facility]/[place] Co de Phone Number [address] [address] * (ABNORMAL) GLUCOSE METER POC (10/21/2024 6:05 PM EDT) Glucose Meter POC 322(H) 70 - 100 mg/dL 10/21/2024 6:07 PM EDT [facility] Sample Type Capillary 10/21/2024 6:07 PM EDT [facility] Patient Status Non-Critical Patient 10/21/2024 6:07 PM EDT [facility] Blood BLOOD SPECIMEN / Unknown 10/21/2024 6:05 PM EDT 10/21/2024 6:07 PM EDT us Igor Lynn MD POINT OF CARE TEST ORDERABLES Fi nal Result Performing Organization Address [facility]/[place] Co de Phone Number [address] [address] * (ABNORMAL) GLUCOSE METER POC (10/21/2024 1:24 PM EDT) Glucose Meter POC 257(H) 70 - 100 mg/dL 10/21/2024 1:26 PM EDT [facility] Sample Type Capillary 10/21/2024 1:26 PM EDT [facility] Patient Status Non-Critical Patient 10/21/2024 1:26 PM EDT [facility] Blood BLOOD SPECIMEN / Unknown 10/21/2024 1:24 PM EDT 10/21/2024 1:26 PM EDT us Igor Lynn MD POINT OF CARE TEST ORDERABLES Fi nal Result Performing Organization Address [facility]/[place] Co de Phone Number [address] [address] * (ABNORMAL) GLUCOSE METER POC (10/21/2024 9:36 AM EDT) Glucose Meter POC 176(H) 70 - 100 mg/dL 10/21/2024 9:38 AM EDT [facility] Sample Type Capillary 10/21/2024 9:38 AM EDT [facility] Patient Status Non-Critical Patient 10/21/2024 9:38 AM EDT [facility] Blood BLOOD SPECIMEN / Unknown 10/21/2024 9:36 AM EDT 10/21/2024 9:38 AM EDT us Igor Lynn MD POINT OF CARE TEST ORDERABLES Fi nal Result Performing Organization Address City/[facility]/ZIP Co de Phone Number [address] [phone] * (ABNORMAL) GLUCOSE METER POC (10/20/2024 10:51 PM EDT) Glucose Meter POC 301(H) 70 - 100 mg/dL 10/20/2024 10:53 PM EDT [facility] Sample Type Capillary 10/20/2024 10:53 PM EDT [facility] Patient Status Non-Critical Patient 10/20/2024 10:53 PM EDT [facility] Blood BLOOD SPECIMEN / Unknown 10/20/2024 10:51 PM EDT 10/20/2024 10:53 PM EDT us Igor Lynn MD POINT OF CARE TEST ORDERABLES Fi nal Result Performing Organization Address [facility]/[place] Co de Phone Number [address] [address] * (ABNORMAL) GLUCOSE METER POC (10/20/2024 7:04 PM EDT) Glucose Meter POC 196(H) 70 - 100 mg/dL 10/20/2024 7:06 PM EDT [facility] Sample Type Capillary 10/20/2024 7:06 PM EDT [facility] Patient Status Non-Critical Patient 10/20/2024 7:06 PM EDT [facility] Blood BLOOD SPECIMEN / Unknown 10/20/2024 7:04 PM EDT 10/20/2024 7:06 PM EDT us Igor Lynn MD POINT OF CARE TEST ORDERABLES Fi nal Result Performing Organization Address City/[facility]/ZIP Co de Phone Number [address] [address] * (ABNORMAL) GLUCOSE METER POC (10/20/2024 1:32 PM EDT) Glucose Meter POC 229(H) 70 - 100 mg/dL 10/20/2024 1:33 PM EDT [facility] Sample Type Capillary 10/20/2024 1:33 PM EDT [facility] Patient Status Non-Critical Patient 10/20/2024 1:33 PM EDT [facility] Blood BLOOD SPECIMEN / Unknown 10/20/2024 1:32 PM EDT 10/20/2024 1:33 PM EDT us Igor Lynn MD POINT OF CARE TEST ORDERABLES Fi nal Result Performing Organization Address City/[facility]/ZIP Co de Phone Number [address] [address] * (ABNORMAL) GLUCOSE METER POC (10/20/2024 10:27 AM EDT) Glucose Meter POC 127(H) 70 - 100 mg/dL 10/20/2024 10:29 AM EDT [facility] Sample Type Capillary 10/20/2024 10:29 AM EDT [facility] Patient Status Non-Critical Patient 10/20/2024 10:29 AM EDT [facility] Blood BLOOD SPECIMEN / Unknown 10/20/2024 10:27 AM EDT 10/20/2024 10:29 AM EDT us Igor Lynn MD POINT OF CARE TEST ORDERABLES Fi nal Result [address] [address] * (ABNORMAL) GLUCOSE METER POC (10/19/2024 9:44 PM EDT) Glucose Meter POC 292(H) 70 - 100 mg/dL 10/19/2024 9:46 PM EDT [facility] Sample Type Capillary 10/19/2024 9:46 PM EDT [facility] Patient Status Non-Critical Patient 10/19/2024 9:46 PM EDT [facility] Blood BLOOD SPECIMEN / Unknown 10/19/2024 9:44 PM EDT 10/19/2024 9:46 PM EDT us Igor Lynn MD POINT OF CARE TEST ORDERABLES Fi nal Result Performing Organization Address City/[facility]/ZIP Co de Phone Number [facility] [address] [place] [address] * (ABNORMAL) GLUCOSE METER POC (10/19/2024 6:22 PM EDT) Glucose Meter POC 189(H) 70 - 100 mg/dL 10/19/2024 6:24 PM EDT [facility] Sample Type Capillary 10/19/2024 6:24 PM EDT [facility] Patient Status Non-Critical Patient 10/19/2024 6:24 PM EDT [facility] Blood BLOOD SPECIMEN / Unknown 10/19/2024 6:22 PM EDT 10/19/2024 6:24 PM EDT us Igor Lynn MD POINT OF CARE TEST ORDERABLES Fi nal Result Performing Organization Address [facility] de Phone Number [place] [phone] * (ABNORMAL) GLUCOSE METER POC (10/19/2024 1:46 PM EDT) Glucose Meter POC 161(H) 70 - 100 mg/dL 10/19/2024 1:47 PM EDT [facility] Sample Type Capillary 10/19/2024 1:47 PM EDT [facility] Patient Status Non-Critical Patient 10/19/2024 1:47 PM EDT [facility] Blood BLOOD SPECIMEN / Unknown 10/19/2024 1:46 PM EDT 10/19/2024 1:47 PM EDT us Igor Lynn MD POINT OF CARE TEST ORDERABLES Fi nal Result [facility] [address] [place] [address] * (ABNORMAL) BASIC METABOLIC PANEL (10/19/2024 11:11 AM EDT) Sodium 136 136 - 145 mmol/L 10/19/2024 12:05 PM EDT [facility] Potassium 4.5 3.5 - 5.0 mmol/L 10/19/2024 12:05 PM EDT [facility] Chloride 102 98 - 107 mmol/L 10/19/2024 12:05 PM EDT [facility] Total CO2 25 22 - 29 mmol/L 10/19/2024 12:05 PM EDT [facility] Anion Gap 9 7 - 16 mmol/L 10/19/2024 12:05 PM EDT [facility] Calcium 9.3 8.8 - 10.4 mg/dL 10/19/2024 12:05 PM EDT [facility] Glucose Lvl 179(H) 70 - 99 mg/dL 10/19/2024 12:05 PM EDT [facility] BUN 18 8 - 23 mg/dL 10/19/2024 12:05 PM EDT [facility] Creatinine 0.69 0.67 - 1.30 mg/dL 10/19/2024 12:05 PM EDT [facility] eGFR (CKD-EPIcr 2020) 94 >=60 mL/min/1.7 3 m2 10/19/2024 12:05 PM EDT [facility] Comment:Estimated GFR was ca lculated using the CKD-EPIcr (2020) equation refit without race. The equation is recommended by the National [employer] - [place] [employer] of Nephrology Task Force. Blood VENOUS BLOOD / Unknown Venipuncture / Unknown 10/19/2024 11:11 AM EDT 10/19/2024 11:17 AM EDT us Igor Lynn MD CHEMISTRY ORDERABLES Final Resul t [facility] [address] [facility] , [place] [address] * (ABNORMAL) GLUCOSE METER POC (10/19/2024 9:35 AM EDT) Glucose Meter POC 124(H) 70 - 100 mg/dL 10/19/2024 9:37 AM EDT [facility] Sample Type Capillary 10/19/2024 9:37 AM EDT [facility] Patient Status Non-Critical Patient 10/19/2024 9:37 AM EDT [facility] Blood BLOOD SPECIMEN / Unknown 10/19/2024 9:35 AM EDT 10/19/2024 9:37 AM EDT us Igor Lynn MD POINT OF CARE TEST ORDERABLES Fi nal Result Performing Organization Address [facility]/ZIP Co de Phone Number [place] [phone] * (ABNORMAL) GLUCOSE METER POC (10/18/2024 9:57 PM EDT) Glucose Meter POC 253(H) 70 - 100 mg/dL 10/18/2024 9:58 PM EDT [facility] Sample Type Capillary 10/18/2024 9:58 PM EDT [facility] Patient Status Non-Critical Patient 10/18/2024 9:58 PM EDT [facility] Blood BLOOD SPECIMEN / Unknown 10/18/2024 9:57 PM EDT 10/18/2024 9:58 PM EDT us Igor Lynn MD POINT OF CARE TEST ORDERABLES Fi nal Result [address] [address] * (ABNORMAL) GLUCOSE METER POC (10/18/2024 6:49 PM EDT) Glucose Meter POC 236(H) 70 - 100 mg/dL 10/18/2024 6:50 PM EDT [facility] Sample Type Capillary 10/18/2024 6:50 PM EDT [facility] Patient Status Non-Critical Patient 10/18/2024 6:50 PM EDT [facility] Blood BLOOD SPECIMEN / Unknown 10/18/2024 6:49 PM EDT 10/18/2024 6:50 PM EDT us Igor Lynn MD POINT OF CARE TEST ORDERABLES Fi nal Result Performing Organization Address City/[facility]/[place] [address] * (ABNORMAL) GLUCOSE METER POC (10/18/2024 1:37 PM EDT) Glucose Meter POC 236(H) 70 - 100 mg/dL 10/18/2024 1:38 PM EDT [facility] Sample Type Capillary 10/18/2024 1:38 PM EDT [facility] Patient Status Non-Critical Patient 10/18/2024 1:38 PM EDT [facility] Blood BLOOD SPECIMEN / Unknown 10/18/2024 1:37 PM EDT 10/18/2024 1:38 PM EDT us Igor Lynn MD POINT OF CARE TEST ORDERABLES Fi nal Result Performing Organization Address [facility] de Phone Number [place] [phone] * (ABNORMAL) GLUCOSE METER POC (10/18/2024 8:20 AM EDT) Glucose Meter POC 214(H) 70 - 100 mg/dL 10/18/2024 8:22 AM EDT [facility] Sample Type Capillary 10/18/2024 8:22 AM EDT [facility] Patient Status Non-Critical Patient 10/18/2024 8:22 AM EDT [facility] Blood BLOOD SPECIMEN / Unknown 10/18/2024 8:20 AM EDT 10/18/2024 8:22 AM EDT us Igor Lynn MD POINT OF CARE TEST ORDERABLES Fi nal Result Performing Organization Address City/[facility]/ZIP Co de Phone Number [facility] [address] [place] [address] * (ABNORMAL) BASIC METABOLIC PANEL (10/18/2024 7:18 AM EDT) Sodium 136 136 - 145 mmol/L 10/18/2024 8:06 AM EDT [facility] Potassium 3.8 3.5 - 5.0 mmol/L 10/18/2024 8:06 AM EDT [facility] Chloride 105 98 - 107 mmol/L 10/18/2024 8:06 AM EDT [facility] Total CO2 22 22 - 29 mmol/L 10/18/2024 8:06 AM EDT [facility] Anion Gap 9 7 - 16 mmol/L 10/18/2024 8:06 AM EDT [facility] Calcium 8.7(L) 8.8 - 10.4 mg/dL 10/18/2024 8:06 AM EDT [facility] Glucose Lvl 209(H) 70 - 99 mg/dL 10/18/2024 8:06 AM EDT [facility] BUN 23 8 - 23 mg/dL 10/18/2024 8:06 AM EDT [facility] Creatinine 0.67 0.67 - 1.30 mg/dL 10/18/2024 8:[address] [facility] eGFR (CKD-EPIcr 2020) 94 >=60 mL/min/1.7 3 m2 10/18/2024 8:[address] [facility] Comment:Estimated GFR was ca lculated using the CKD-EPIcr (2020) equation refit without race. The equation is recommended by the National [employer] - [place] [employer] of Nephrology Task Force. Blood VENOUS BLOOD / Unknown Venipuncture / Unknown 10/18/2024 7:18 AM EDT 10/18/2024 7:22 AM EDT us Igor Lynn MD CHEMISTRY ORDERABLES Final Resul t [facility] [address] [facility] , [address] [place] [phone] * (ABNORMAL) GLUCOSE METER POC (10/17/2024 10:47 PM EDT) Glucose Meter POC 231(H) 70 - 100 mg/dL 10/17/2024 10:49 PM EDT [facility] Sample Type Capillary 10/17/2024 10:49 PM EDT [facility] Patient Status Non-Critical Patient 10/17/2024 10:49 PM EDT [facility] Blood BLOOD SPECIMEN / Unknown 10/17/2024 10:47 PM EDT 10/17/2024 10:49 PM EDT Igor Lynn MD POINT OF CARE TEST ORDERABLES Fi nal Result Performing Organization Address City/[facility]/[place] [address] * (ABNORMAL) GLUCOSE METER POC (10/17/2024 6:15 PM EDT) Glucose Meter POC 299(H) 70 - 100 mg/dL 10/17/2024 6:17 PM EDT [facility] Sample Type Capillary 10/17/2024 6:17 PM EDT [facility] Patient Status Non-Critical Patient 10/17/2024 6:17 PM EDT [facility] Blood BLOOD SPECIMEN / Unknown 10/17/2024 6:15 PM EDT 10/17/2024 6:17 PM EDT us Igor Lynn MD POINT OF CARE TEST ORDERABLES Fi nal Result [facility] [address] [place] [address] * (ABNORMAL) GLUCOSE METER POC (10/17/2024 1:35 PM EDT) Glucose Meter POC 338(H) 70 - 100 mg/dL 10/17/2024 1:36 PM EDT [facility] Sample Type Capillary 10/17/2024 1:36 PM EDT [facility] Patient Status Non-Critical Patient 10/17/2024 1:36 PM EDT [facility] Blood BLOOD SPECIMEN / Unknown 10/17/2024 1:35 PM EDT 10/17/2024 1:36 PM EDT us Igor Lynn MD POINT OF CARE TEST ORDERABLES Fi nal Result Performing Organization Address City/[facility]/[place] Co de Phone Number [address] [address] * (ABNORMAL) GLUCOSE METER POC (10/17/2024 8:24 AM EDT) Glucose Meter POC 195(H) 70 - 100 mg/dL 10/17/2024 8:25 AM EDT [facility] Sample Type Capillary 10/17/2024 8:25 AM EDT [facility] Patient Status Non-Critical Patient 10/17/2024 8:25 AM EDT [facility] Blood BLOOD SPECIMEN / Unknown 10/17/2024 8:24 AM EDT 10/17/2024 8:25 AM EDT us Igor Lynn MD POINT OF CARE TEST ORDERABLES Fi nal Result Performing Organization Address [facility]/[place] Co de Phone Number [place] [phone] * (ABNORMAL) BASIC METABOLIC PANEL (10/17/2024 6:41 AM EDT) Sodium 138 136 - 145 mmol/L 10/17/2024 8:27 AM EDT [facility] Potassium 4.1 3.5 - 5.0 mmol/L 10/17/2024 8:27 AM EDT [facility] Chloride 102 98 - 107 mmol/L 10/17/2024 8:27 AM EDT [facility] Total CO2 24 22 - 29 mmol/L 10/17/2024 8:27 AM EDT [facility] Anion Gap 12 7 - 16 mmol/L 10/17/2024 8:27 AM EDT [facility] Calcium 8.8 8.8 - 10.4 mg/dL 10/17/2024 8:27 AM EDT [facility] Glucose Lvl 203(H) 70 - 99 mg/dL 10/17/2024 8:27 AM EDT [facility] BUN 27(H) 8 - 23 mg/dL 10/17/2024 8:27 AM EDT [facility] Creatinine 0.77 0.67 - 1.30 mg/dL 10/17/2024 8:27 AM EDT [facility] eGFR (CKD-EPIcr 2020) 91 >=60 mL/min/1.7 3 m2 10/17/2024 8:27 AM EDT [facility] Comment:Estimated GFR was ca lculated using the CKD-EPIcr (2020) equation refit without race. The equation is recommended by the National Kid[employer] - [place] [employer] Nephrology Task Force. Blood VENOUS BLOOD / Unknown Venipuncture / Unknown 10/17/2024 6:41 AM EDT 10/17/2024 7:51 AM EDT us Igor Lynn MD CHEMISTRY ORDERABLES Final Resul t Performing Organization Address City/[facility]/ZIP Co de Phone Number [address] , [place] [address] * (ABNORMAL) GLUCOSE METER POC (10/16/2024 10:14 PM EDT) [facility] Signature Glucose Meter POC 297(H) 70 - 100 mg/dL 10/16/2024 10:17 PM EDT [facility] Sample Type Capillary 10/16/2024 10:17 PM EDT [facility] Patient Status Non-Critical Patient 10/16/2024 10:17 PM EDT [facility] Blood BLOOD SPECIMEN / Unknown 10/16/2024 10:14 PM EDT 10/16/2024 10:17 PM EDT us Igor Lynn MD POINT OF CARE TEST ORDERABLES Fi nal Result [facility] [address] [place] [address] * (ABNORMAL) GLUCOSE METER POC (10/16/2024 5:44 PM EDT) [facility] Signature Glucose Meter POC 291(H) 70 - 100 mg/dL 10/16/2024 5:46 PM EDT [facility] Sample Type Capillary 10/16/2024 5:46 PM EDT [facility] Patient Status Non-Critical Patient 10/16/2024 5:46 PM EDT [facility] Blood BLOOD SPECIMEN / Unknown 10/16/2024 5:44 PM EDT 10/16/2024 5:46 PM EDT Igor Lynn MD POINT OF CARE TEST ORDERABLES Fi nal Result [facility] [address] [place] [id number] * (ABNORMAL) BASIC METABOLIC PANEL (10/16/2024 1:47 PM EDT) [facility] Signature Sodium 133(L) 136 - 145 mmol/L 10/16/2024 5:13 PM EDT [facility] Potassium 4.1 3.5 - 5.0 mmol/L 10/16/2024 5:13 PM EDT [facility] Chloride 98 98 - 107 mmol/L 10/16/2024 5:13 PM EDT [facility] Total CO2 21(L) 22 - 29 mmol/L 10/16/2024 5:13 PM EDT [facility] Anion Gap 14 7 - 16 mmol/L 10/16/2024 5:13 PM EDT [facility] Calcium 8.9 8.8 - 10.4 mg/dL 10/16/2024 5:13 PM EDT [facility] Glucose Lvl 320(H) 70 - 99 mg/dL 10/16/2024 5:13 PM EDT [facility] BUN 24(H) 8 - 23 mg/dL 10/16/2024 5:13 PM EDT [facility] Creatinine 0.68 0.67 - 1.30 mg/dL 10/16/2024 5:[address] [facility] [employer] eGFR (CKD-EPIcr 2020) 94 >=60 mL/min/1.7 3 m2 10/16/2024 5:[address] [facility] [employer] [facility] Comment:Estimated GFR was ca lculated using the CKD-EPIcr (2020) equation refit without race. The equation is recommended by the National Kidney Foundation - [place] [employer] of Nephrology Task Force. Blood VENOUS BLOOD / Unknown Venipuncture / Unknown 10/16/2024 1:47 PM EDT 10/16/2024 1:49 PM EDT Igor Lynn MD CHEMISTRY ORDERABLES Final Resul t Performing Organization Address City/[facility]/ZIP Co de Phone Number [facility] [employer] [address] , [place] [address] * VANCOMYCIN LEVEL AUC2 (10/16/2024 1:47 PM EDT) Vancomycin AUC2 22.0 mcg/mL 2:20 PM EDT [employer] [facility] Blood VENOUS BLOOD / Unknown Venipuncture / Unknown 10/16/2024 1:47 PM EDT 10/16/2024 1:49 PM EDT Ahsan Parra Jr., MD CHEMISTRY ORDERABLES F inal Result Performing Organization Address [facility]/RUST Co de Phone Number [facility] [employer] [address] , [place] [address] * (ABNORMAL) GLUCOSE METER POC (10/16/2024 1:06 PM EDT) Glucose Meter POC 299(H) 70 - 100 mg/dL 10/16/2024 1:08 PM EDT [facility] Sample Type Capillary 10/16/2024 1:08 PM EDT [facility] Patient Status Non-Critical Patient 10/16/2024 1:08 PM EDT [facility] Blood BLOOD SPECIMEN / Unknown 10/16/2024 1:06 PM EDT 10/16/2024 1:08 PM EDT Igor Lynn MD POINT OF CARE TEST ORDERABLES Fi nal Result Performing Organization Address [facility] de Phone Number [address] [phone] * VANCOMYCIN LEVEL AUC1 (10/16/2024 8:36 AM EDT) Vancomycin AUC1 32.2 mcg/mL 9:00 AM EDT [facility] Blood VENOUS BLOOD / Unknown Venipuncture / Unknown 10/16/2024 8:36 AM EDT 10/16/2024 8:40 AM EDT us Ahsan Parra Jr., MD CHEMISTRY ORDERABLES F inal Result Performing Organization Address [facility] [place] [address] * (ABNORMAL) GLUCOSE METER POC (10/16/2024 8:24 AM EDT) Glucose Meter POC 295(H) 70 - 100 mg/dL 10/16/2024 8:26 AM EDT [facility] Sample Type Capillary 10/16/2024 8:26 AM EDT [facility] Patient Status Non-Critical Patient 10/16/2024 8:26 AM EDT [facility] Blood BLOOD SPECIMEN / Unknown 10/16/2024 8:24 AM EDT 10/16/2024 8:26 AM EDT Igor Lynn MD POINT OF CARE TEST ORDERABLES Fi nal Result Performing Organization Address [facility] de Phone Number [address] [phone] * (ABNORMAL) GLUCOSE METER POC (10/15/2024 10:15 PM EDT) Glucose Meter POC 346(H) 70 - 100 mg/dL 10/15/2024 10:17 PM EDT [facility] Sample Type Capillary 10/15/2024 10:17 PM EDT [facility] Patient Status Non-Critical Patient 10/15/2024 10:17 PM EDT [facility] Blood BLOOD SPECIMEN / Unknown 10/15/2024 10:15 PM EDT 10/15/2024 10:17 PM EDT us Igor Lynn MD POINT OF CARE TEST ORDERABLES Fi nal Result Performing Organization Address [facility]/ZIP Co de Phone Number [address] [phone] * (ABNORMAL) GLUCOSE METER POC (10/15/2024 5:44 PM EDT) Glucose Meter POC 412(H) 70 - 100 mg/dL 10/15/2024 5:46 PM EDT [facility] Sample Type Capillary 10/15/2024 5:46 PM EDT [facility] Patient Status Non-Critical Patient 10/15/2024 5:46 PM EDT [facility] Blood BLOOD SPECIMEN / Unknown 10/15/2024 5:44 PM EDT 10/15/2024 5:46 PM EDT us Ahsan Parra Jr., MD POINT OF CARE TEST ORD ERABLES Final Result Performing Organization Address City/[facility]/ZIP Co de Phone Number [address] [address] * (ABNORMAL) GLUCOSE METER POC (10/15/2024 1:33 PM EDT) Glucose Meter POC 388(H) 70 - 100 mg/dL 10/15/2024 1:34 PM EDT [facility] Sample Type Capillary 10/15/2024 1:34 PM EDT [facility] Patient Status Non-Critical Patient 10/15/2024 1:34 PM EDT [facility] Blood BLOOD SPECIMEN / Unknown 10/15/2024 1:33 PM EDT 10/15/2024 1:34 PM EDT Ahsan Parra Jr., MD POINT OF CARE TEST ORD ERABLES Final Result Performing Organization Address [facility] de Phone Number [address] [phone] * VANCOMYCIN LEVEL AUC2 (10/15/2024 12:40 PM EDT) [facility] Vancomycin AUC2 9.4 mcg/mL 1:06 PM EDT [facility] Blood VENOUS BLOOD / Unknown Venipuncture / Unknown 10/15/2024 12:40 PM EDT 10/15/2024 12:44 PM EDT Ahsan Parra Jr., MD CHEMISTRY ORDERABLES F inal Result Performing Organization Address [facility] Phone Number [address] [phone] * (ABNORMAL) GLUCOSE METER POC (10/15/2024 8:47 AM EDT) [facility] Glucose Meter POC 301(H) 70 - 100 mg/dL 10/15/2024 8:48 AM EDT [facility] Sample Type Capillary 10/15/2024 8:48 AM EDT [facility] Patient Status Non-Critical Patient 10/15/2024 8:48 AM EDT [facility] Blood BLOOD SPECIMEN / Unknown 10/15/2024 8:47 AM EDT 10/15/2024 8:48 AM EDT us Ahsan Parra Jr., MD POINT OF CARE TEST ORD ERABLES Final Result Performing Organization Address [facility] de Phone Number [address] [phone] * VANCOMYCIN LEVEL AUC1 (10/15/2024 6:09 AM EDT) [facility] Vancomycin AUC1 11.8 mcg/mL 7:08 AM EDT [facility] [employer] [employer] Blood VENOUS BLOOD / Unknown Venipuncture / Unknown 10/15/2024 6:09 AM EDT 10/15/2024 6:17 AM EDT us Ahsan Parra Jr., MD CHEMISTRY ORDERABLES F inal Result [facility] [address] [facility] , [place] [address] * (ABNORMAL) CBC (10/15/2024 6:09 AM EDT) [facility] WBC 5.9 3.7 - 10.3 x10(3)/mcL 10/15/2024 6:27 AM EDT [facility] RBC 5.03 4.60 - 6.10 x10(6)/mcL 10/15/2024 6:27 AM EDT [facility] Hgb 14.5 13.7 - 17.5 g/dL 10/15/2024 6:27 AM EDT [facility] Hct 43.6 40.0 - 51.0 % 10/15/2024 6:27 AM EDT [facility] MCV 86.7 80.0 - 100.0 fL 10/15/2024 6:27 AM EDT [facility] MCH 28.8 26.0 - 34.0 pg 10/15/2024 6:27 AM EDT [facility] MCHC 33.3 30.7 - 35.5 g/dL 10/15/2024 6:27 AM EDT [facility] RDW 15.0(H) <=14.9 % 10/15/2024 6:27 AM EDT [facility] Platelet 172 155 - 369 x10(3)/mcL 10/15/2024 6:27 AM EDT [facility] MPV 10.5 8.8 - 12.5 fL 10/15/2024 6:27 AM EDT [facility] Blood VENOUS BLOOD / Unknown Venipuncture / Unknown 10/15/2024 6:09 AM EDT 10/15/2024 6:17 AM EDT [employer] HEMATOLOGY ORDERABLES Final Result [facility] [address] [facility] , [address] [place] [phone] * (ABNORMAL) BASIC METABOLIC PANEL (10/15/2024 6:09 AM EDT) Sodium 133(L) 136 - 145 mmol/L 10/15/2024 7:08 AM EDT [facility] Potassium 4.6 3.5 - 5.0 mmol/L 10/15/2024 7:08 AM EDT [facility] Chloride 98 98 - 107 mmol/L 10/15/2024 7:08 AM EDT [facility] Total CO2 24 22 - 29 mmol/L 10/15/2024 7:08 AM EDT [facility] Anion Gap 11 7 - 16 mmol/L 10/15/2024 7:08 AM EDT [facility] Calcium 9.1 8.8 - 10.4 mg/dL 10/15/2024 7:08 AM EDT [facility] Glucose Lvl 306(H) 70 - 99 mg/dL 10/15/2024 7:08 AM EDT [facility] BUN 11 8 - 23 mg/dL 10/15/2024 7:08 AM EDT [facility] Creatinine 0.55(L) 0.67 - 1.30 mg/dL 10/15/2024 7:08 AM EDT [facility] eGFR (CKD-EPIcr 2020) 100 >=60 mL/min/1.7 3 m2 10/15/2024 7:08 AM EDT [facility] Comment:Estimated GFR was ca lculated using the CKD-EPIcr (2020) equation refit without race. The equation is recommended by the National Kidney Foundation - [place] [employer] of Nephrology Task Force. Blood VENOUS BLOOD / Unknown Venipuncture / Unknown 10/15/2024 6:09 AM EDT 10/15/2024 6:17 AM EDT [employer] D[employer] CHEMISTRY ORDERABLES Final Result Performing Organization Address City/[facility]/ZIP Co de Phone Number [facility] [employer] [facility] [address] [facility], [address] [place] [phone] * (ABNORMAL) GLUCOSE METER POC (10/14/2024 10:23 PM EDT) Glucose Meter POC 215(H) 70 - 100 mg/dL 10/14/2024 10:25 PM EDT [facility] Sample Type Capillary 10/14/2024 10:25 PM EDT [facility] Patient Status Non-Critical Patient 10/14/2024 10:25 PM EDT [facility] Blood BLOOD SPECIMEN / Unknown 10/14/2024 10:23 PM EDT 10/14/2024 10:25 PM EDT Ahsan Parra Jr., MD POINT OF CARE TEST ORD ERABLES Final Result Performing Organization Address [facility]/[employer] Co de Phone Number [address] [address] * (ABNORMAL) GLUCOSE METER POC (10/14/2024 7:07 PM EDT) Glucose Meter POC 263(H) 70 - 100 mg/dL 10/14/2024 7:09 PM EDT [facility] Sample Type Capillary 10/14/2024 7:09 PM EDT [facility] Patient Status Non-Critical Patient 10/14/2024 7:09 PM EDT [facility] Blood BLOOD SPECIMEN / Unknown 10/14/2024 7:07 PM EDT 10/14/2024 7:09 PM EDT Ahsan Parra Jr., MD POINT OF CARE TEST ORD ERABLES Final Result Performing Organization Address City/[facility]/ZIP Co de Phone Number [address] [address] * (ABNORMAL) GLUCOSE METER POC (10/14/2024 3:27 PM EDT) [facility] Glucose Meter POC 245(H) 70 - 100 mg/dL 10/14/2024 3:37 PM EDT [facility] Sample Type Capillary 10/14/2024 3:37 PM EDT [facility] Patient Status Non-Critical Patient 10/14/2024 3:37 PM EDT [facility] Blood BLOOD SPECIMEN / Unknown 10/14/2024 3:27 PM EDT 10/14/2024 3:37 PM EDT us Ahsan Parra Jr., MD POINT OF CARE TEST ORD ERABLES Final Result [facility] [address] [place] [phone] * [facility] LOWER EXTREMITY ARTERIAL DUPLEX COMPLETE (10/14/2024 3:02 PM EDT) Anatomical Region Laterality Modality Vascular, Leg Vascular Imaging 10/14/2024 1:34 PM EDT Impressions 10/14/2024 9:24 PM EDT Conclusions * Significant arterial atherosclerosis noted throughout the right lower extremity. * Evidence of severe diffuse arterial disease throughout the right lower extremity. Difficult to image and doppler making it difficult to determine stenosis/occlusions. * Right proximal anterior tibial artery was imaged with monophasic flow; unable to visualize mid to distal due to dressings. * Right DPA was obtained; vessel is non-compressible. * Right 1st digit is absent. * Monophasic Doppler flow pattern is noted throughout the right lower extremity. * Arterial atherosclerosis noted throughout the left lower extremity. * Evidence of moderate left lower extremity arterial disease demonstrated. * Biphasic Doppler flow pattern is noted in the common femoral, femoral and popliteal arteries of the left lower extremity. * Monophasic Doppler flow pattern is noted throughout the tibial arteries of the left lower extremity. * Left MC is MERCERIZING RANGE FEEDER 0.98 and DPA 0.84. 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 * No color flow/spectral Doppler with intraluminal plaque noted throughout the left anterior tibial artery consistent with a total occlusion. Narrative Procedure Note Latrell Chandler MD - 10/14/2024 IMPRESSION Conclusions * Significant arterial atherosclerosis noted throughout the rightlower extremity. * Evidence of severe diffuse arterial disease throughout the rightlower extremity. Difficult to image and doppler making it difficult todetermine stenosis/occlusions. * Right proximal anterior tibial artery was imaged with monophasicflow; unable to visualize mid to distal due to dressings. * Right DPA was obtained; vessel is non-compressible. * Right 1st digit is absent. * Monophasic Doppler flow pattern is noted throughout the right lower extremity. * Arterial atherosclerosis noted throughout the left lower extremity. * Evidence of moderate left lower extremity arterial diseasedemonstrated. * Biphasic Doppler flow pattern is noted in the common femoral, femoraland popliteal arteries of the left lower extremity. * Monophasic Doppler flow pattern is noted throughout the tibialarteries of the left lower extremity. * Left MC is MERCERIZING RANGE FEEDER 0.98 and DPA 0.84. 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 * No color flow/spectral Doppler with intraluminal plaque notedthroughout the left anterior tibial artery consistent with a total occlusion. [employer] IMG VASCULAR ORDERABLES Fin al Result * (ABNORMAL) GLUCOSE METER POC (10/14/2024 10:26 AM EDT) Glucose Meter POC 185(H) 70 - 100 mg/dL 10/14/2024 10:27 AM EDT [facility] Sample Type Capillary 10/14/2024 10:27 AM EDT [facility] Patient Status Non-Critical Patient 10/14/2024 10:27 AM EDT [facility] Blood BLOOD SPECIMEN / Unknown 10/14/2024 10:26 AM EDT 10/14/2024 10:27 AM EDT us Ahsan Parra Jr., MD POINT OF CARE TEST ORD ERABLES Final Result [facility] [address] [place], [place] [phone] * (ABNORMAL) GLUCOSE METER POC (10/14/2024 8:33 AM EDT) Glucose Meter POC 167(H) 70 - 100 mg/dL 10/14/2024 8:34 AM EDT [facility] Sample Type Capillary 10/14/2024 8:34 AM EDT [facility] Patient Status Non-Critical Patient 10/14/2024 8:34 AM EDT [facility] Blood BLOOD SPECIMEN / Unknown 10/14/2024 8:33 AM EDT 10/14/2024 8:34 AM EDT us Ahsan Parra Jr., MD POINT OF CARE TEST ORD ERABLES Final Result [facility] [address] [place] [address] * FUNGUS CULTURE (NO STAIN) (10/14/2024 8:14 AM EDT) Culture No growth of fungus at 4 weeks. 11/10/2024 3:32 PM EDT [facility] [employer] STRUCTURE OF RIGHT FOOT / Unknown 10/14/2024 8:14 AM EDT 10/14/2024 8:35 AM EDT us [employer] DPM MICROBIOLOGY - GENERAL JORY MERCADO Final Result Performing Organization Address City/[facility]/ZIP Co de Phone Number [facility] [address], [place] [address] * (ABNORMAL) WOUND CULTURE (STAIN INCLUDED) (10/14/2024 8:14 AM EDT) Culture Positive Growth(A) 10/18/2024 9:41 AM EDT [facility] [employer] [employer] Culture Sparse growth of Staphylococcus aureus SUSCEPTIB ILITY RESULT 10/18/2024 9:41 AM EDT [employer] Comment:PBP2a: a rapid assay that aids in identifying MRSA by detecting the protein that confers resistance to methicillin. A negative result does not exclude methicillin resistance due to other mechanisms. PBP2a test Negative 10/18/2024 9:41 AM EDT [facility] [employer] Stain Few WBCs 10/18/2024 9:41 AM EDT [facility] [employer] Stain No organisms seen 025 9:[address] [facility] [employer], [facility] Swab STRUCTURE OF RIGHT FOOT / Unknown 10/14/2024 8:14 AM EDT 10/14/2024 8:35 AM EDT Narrative Organism Antibiotic Method Susceptibility Staphylococcus aureus Ampicillin SUSCEPTIBILITY RESU LT Staphylococcus aureus Cefazolin SUSCEPTIBILITY RESU LT Staphylococcus aureus Ceftaroline SUSCEPTIBILITY RESU LT Staphylococcus aureus Ceftriaxone SUSCEPTIBILITY RESU LT Staphylococcus aureus Chloramphenicol SUSCEPTIBILITY R ESULT <=8 ug/mL: Susceptible Staphylococcus aureus Ciprofloxacin SUSCEPTIBILITY RES ULT <=1 ug/mL: Susceptible Staphylococcus aureus Clindamycin SUSCEPTIBILITY RESU LT <=0.25 ug/mL: Susceptible Staphylococcus aureus Daptomycin SUSCEPTIBILITY RESU LT Staphylococcus aureus Erythromycin SUSCEPTIBILITY RESU LT <=0.25 ug/mL: Susceptible Staphylococcus aureus Gentamicin SUSCEPTIBILITY RESU LT <=1 ug/mL: Susceptible Staphylococcus aureus Gentamicin synergy SUSCEPTIBILIT Y RESULT Staphylococcus aureus Levofloxacin SUSCEPTIBILITY RESU LT <=0.5 ug/mL: Susceptible Staphylococcus aureus Linezolid SUSCEPTIBILITY RESU LT Staphylococcus aureus Moxifloxacin SUSCEPTIBILITY RESU LT <=0.25 ug/mL: Susceptible Staphylococcus aureus Nitrofurantoin SUSCEPTIBILITY RE SULT Staphylococcus aureus Oxacillin SUSCEPTIBILITY RESU LT <=0.25 ug/mL: Susceptible Staphylococcus aureus Penicillin SUSCEPTIBILITY RESU LT Staphylococcus aureus Rifampin SUSCEPTIBILITY RESU LT <=1 ug/mL: Susceptible Staphylococcus aureus Streptomycin synergy SUSCEPTIBIL ITY RESULT Staphylococcus aureus Synercid SUSCEPTIBILITY RESU LT Staphylococcus aureus Tetracycline SUSCEPTIBILITY RESU LT <=2 ug/mL: Susceptible Staphylococcus aureus Tigecycline SUSCEPTIBILITY RESU LT Staphylococcus aureus Trimethoprim/Sulfa meth oxazole SUSCEPTIBILITY RESULT <=0.5/9.5 ug/mL: Susceptible Staphylococcus aureus Vancomycin SUSCEPTIBILITY RESU LT 0.5 ug/mL: Susceptible Comment:Rifampin and Gentami ronel should not be used alone for antimicrobial therapy. For methicillin resistant staphylococci, ciprofloxacin should also not be used alone. us [employer] DPM MICROBIOLOGY - GENERAL ORDCarmenza MERCADO Final Result [facility] [employer], [facility] [address] [facility] , [place] [address] * ANAEROBIC CULTURE (NO STAIN) (10/14/2024 8:14 AM EDT) Culture No anaerobic growth at 5 days. 10/19/2024 11:05 AM EDT [facility] [employer] Swab STRUCTURE OF RIGHT FOOT / Unknown 10/14/2024 8:14 AM EDT 10/14/2024 8:35 AM EDT us [employer] DPM MICROBIOLOGY - GENERAL ORDE JESS Final Result Performing Organization Address [facility]/[employer] Co de Phone Number [facility] [employer] [address] [facility], [place] [address] * (ABNORMAL) GLUCOSE METER POC (10/14/2024 7:17 AM EDT) [facility] Glucose Meter POC 184(H) 70 - 100 mg/dL 10/14/2024 7:19 AM EDT [facility] Sample Type Capillary 10/14/2024 7:19 AM EDT [facility] Patient Status Non-Critical Patient 10/14/2024 7:19 AM EDT [facility] Blood BLOOD SPECIMEN / Unknown 10/14/2024 7:17 AM EDT 10/14/2024 7:19 AM EDT us Ahsan Parra Jr., MD POINT OF CARE TEST ORD ERABLES Final Result Performing Organization Address [facility] Co de Phone Number [facility] [address] [place] [address] * (ABNORMAL) CBC (10/14/2024 5:39 AM EDT) WBC 6.1 3.7 - 10.3 x10(3)/mcL 10/14/2024 6:02 AM EDT [facility] RBC 4.46(L) 4.60 - 6.10 x10(6)/mcL 10/14/2024 6:02 AM EDT [facility] Hgb 13.1(L) 13.7 - 17.5 g/dL 10/14/2024 6:02 AM EDT [facility] Hct 40.5 40.0 - 51.0 % 10/14/2024 6:02 AM EDT [facility] MCV 90.8 80.0 - 100.0 fL 10/14/2024 6:02 AM EDT [facility] MCH 29.4 26.0 - 34.0 pg 10/14/2024 6:02 AM EDT [facility] MCHC 32.3 30.7 - 35.5 g/dL 10/14/2024 6:02 AM EDT [facility] RDW 15.3(H) <=14.9 % 10/14/2024 6:02 AM EDT [facility] Platelet 144(L) 155 - 369 x10(3)/mcL 10/14/2024 6:02 AM EDT [facility] MPV 10.3 8.8 - 12.5 fL 10/14/2024 6:02 AM EDT [facility] Blood VENOUS BLOOD / Unknown Venipuncture / Unknown 10/14/2024 5:39 AM EDT 10/14/2024 5:43 AM EDT us [employer] DPM HEMATOLOGY ORDERABLES Final Result [facility] [address] [facility] , [address] [place] [phone] * (ABNORMAL) BASIC METABOLIC PANEL (10/14/2024 5:39 AM EDT) Sodium 133(L) 136 - 145 mmol/L 10/14/2024 7:31 AM EDT [facility] Potassium 5.0 3.5 - 5.0 mmol/L 10/14/2024 7:31 AM EDT [facility] Chloride 103 98 - 107 mmol/L 10/14/2024 7:31 AM EDT [facility] Total CO2 18(L) 22 - 29 mmol/L 10/14/2024 7:31 AM EDT [facility] Anion Gap 12 7 - 16 mmol/L 10/14/2024 7:31 AM EDT [facility] Calcium 8.7(L) 8.8 - 10.4 mg/dL 10/14/2024 7:[address] [facility], [facility] Glucose Lvl 191(H) 70 - 99 mg/dL 10/14/2024 7:31 AM EDT [facility], [facility] BUN 12 8 - 23 mg/dL 10/14/2024 7:31 AM EDT [facility], [facility] Creatinine 0.57(L) 0.67 - 1.30 mg/dL 10/14/2024 7:31 AM EDT [facility], [facility] eGFR (CKD-EPIcr 2020) 99 >=60 mL/min/1.7 3 m2 10/14/2024 7:[address] [facility] Comment:Estimated GFR was ca lculated using the CKD-EPIcr (2020) equation refit without race. The equation is recommended by the [employer] - [employer]ph[employer] Task Force. Blood VENOUS BLOOD / Unknown Venipuncture / Unknown 10/14/2024 5:39 AM EDT 10/14/2024 5:43 AM EDT [facility] [employer] CHEMISTRY ORDERABLES Final Result Performing Organization Address City/[facility]/ZIP Co de Phone Number [address] , [place] [address] * (ABNORMAL) GLUCOSE METER POC (10/13/2024 10:46 PM EDT) [facility] Signature Glucose Meter POC 231(H) 70 - 100 mg/dL 10/13/2024 10:47 PM EDT [facility] Sample Type Capillary 10/13/2024 10:47 PM EDT [facility] Patient Status Non-Critical Patient 10/13/2024 10:47 PM EDT [facility] Blood BLOOD SPECIMEN / Unknown 10/13/2024 10:46 PM EDT 10/13/2024 10:47 PM EDT us Ahsan Parra Jr., MD POINT OF CARE TEST ORD ERABLES Final Result [facility] [address] [place] [address] * (ABNORMAL) GLUCOSE METER POC (10/13/2024 6:50 PM EDT) Glucose Meter POC 216(H) 70 - 100 mg/dL 10/13/2024 6:52 PM EDT [facility] Sample Type Capillary 10/13/2024 6:52 PM EDT [facility] Patient Status Non-Critical Patient 10/13/2024 6:52 PM EDT [facility] Blood BLOOD SPECIMEN / Unknown 10/13/2024 6:50 PM EDT 10/13/2024 6:52 PM EDT Ahsan Parra Jr., MD POINT OF CARE TEST ORD ERABLES Final Result Performing Organization Address [facility]/ZIP Co de Phone Number [address] [address] * (ABNORMAL) GLUCOSE METER POC (10/13/2024 2:15 PM EDT) Glucose Meter POC 250(H) 70 - 100 mg/dL 10/13/2024 2:16 PM EDT [facility] Sample Type Capillary 10/13/2024 2:16 PM EDT [facility] Patient Status Non-Critical Patient 10/13/2024 2:16 PM EDT [facility] Blood BLOOD SPECIMEN / Unknown 10/13/2024 2:15 PM EDT 10/13/2024 2:16 PM EDT Ahsan Parra Jr., MD POINT OF CARE TEST ORD ERABLES Final Result [facility] [address] [place] [address] * (ABNORMAL) GLUCOSE METER POC (10/13/2024 9:26 AM EDT) Glucose Meter POC 174(H) 70 - 100 mg/dL 10/13/2024 9:28 AM EDT [facility] Sample Type Capillary 10/13/2024 9:28 AM EDT [facility] Patient Status Non-Critical Patient 10/13/2024 9:28 AM EDT [facility] Blood BLOOD SPECIMEN / Unknown 10/13/2024 9:26 AM EDT 10/13/2024 9:28 AM EDT us Ahsan Parra Jr., MD POINT OF CARE TEST ORD ERABLES Final Result [facility] [address] [place] [address] * (ABNORMAL) CBC (10/13/2024 6:32 AM EDT) WBC 6.3 3.7 - 10.3 x10(3)/mcL 10/13/2024 7:31 AM EDT [facility] RBC 4.39(L) 4.60 - 6.10 x10(6)/mcL 10/13/2024 7:31 AM EDT [facility] Hgb 12.8(L) 13.7 - 17.5 g/dL 10/13/2024 7:31 AM EDT [facility] Hct 40.5 40.0 - 51.0 % 10/13/2024 7:31 AM EDT [facility] MCV 92.3 80.0 - 100.0 fL 10/13/2024 7:31 AM EDT [facility] MCH 29.2 26.0 - 34.0 pg 10/13/2024 7:31 AM EDT [facility] MCHC 31.6 30.7 - 35.5 g/dL 10/13/2024 7:31 AM EDT [facility] RDW 15.7(H) <=14.9 % 10/13/2024 7:31 AM EDT [facility] Platelet 161 155 - 369 x10(3)/mcL 10/13/2024 7:31 AM EDT [facility] MPV 11.7 8.8 - 12.5 fL 10/13/2024 7:31 AM EDT [facility] Blood VENOUS BLOOD / Unknown Venipuncture / Unknown 10/13/2024 6:32 AM EDT 10/13/2024 7:13 AM EDT [employer] HEMATOLOGY ORDERABLES Final Result [facility] [address] [facility] , [place] [address] * (ABNORMAL) BASIC METABOLIC PANEL (10/13/2024 6:32 AM EDT) Sodium 136 136 - 145 mmol/L 10/13/2024 7:46 AM EDT [facility] Potassium 4.8 3.5 - 5.0 mmol/L 10/13/2024 7:46 AM EDT [facility] Chloride 104 98 - 107 mmol/L 10/13/2024 7:46 AM EDT [facility] Total CO2 24 22 - 29 mmol/L 10/13/2024 7:46 AM EDT [facility] Anion Gap 8 7 - 16 mmol/L 10/13/2024 7:46 AM EDT [facility] Calcium 8.5(L) 8.8 - 10.4 mg/dL 10/13/2024 7:46 AM EDT [facility] Glucose Lvl 195(H) 70 - 99 mg/dL 10/13/2024 7:46 AM EDT [facility] BUN 17 8 - 23 mg/dL 10/13/2024 7:46 AM EDT [facility] Creatinine 0.75 0.67 - 1.30 mg/dL 10/13/2024 7:46 AM EDT [facility] eGFR (CKD-EPIcr 2020) 91 >=60 mL/min/1.7 3 m2 10/13/2024 7:46 AM EDT [facility] Comment:Estimated GFR was ca lculated using the CKD-EPIcr (2020) equation refit without race. The equation is recommended by the National Kid[employer] - [place] [employer] Nephrology Task Force. Blood VENOUS BLOOD / Unknown Venipuncture / Unknown 10/13/2024 6:32 AM EDT 10/13/2024 7:13 AM EDT [employer] CHEMISTRY ORDERABLES Final Result Performing Organization Address City/[facility] Co de Phone Number [facility] [address] [facility], [place] [address] * REPEAT LACTIC ACID (10/13/2024 12:36 AM EDT) Lactic Acid 1.6 0.5 - 1.9 mmol/L 10/13/2024 12:53 AM EDT [facility] Blood VENOUS BLOOD / Unknown Venipuncture / Unknown 10/13/2024 12:36 AM EDT 10/13/2024 12:40 AM EDT Nuno Eaton MD CHEMISTRY ORDERABLES Final Resul t Performing Organization Address [facility] Co de Phone Number [facility] [address] [place] [address] * (ABNORMAL) REPEAT LACTIC ACID (10/12/2024 10:48 PM EDT) Lactic Acid 2.0(H) 0.5 - 1.9 mmol/L 10/12/2024 11:06 PM EDT [facility] Blood VENOUS BLOOD / Unknown Venipuncture / Unknown 10/12/2024 10:48 PM EDT 10/12/2024 10:52 PM EDT us Nuno Eaton MD CHEMISTRY ORDERABLES Final Resul t Performing Organization Address [facility] Co de Phone Number [address] [address] * (ABNORMAL) HEMOGLOBIN A1C (10/12/2024 9:12 PM EDT) Hgb A1C 7.9(H) 4.2 - 5.6 % 10/12/2024 10:19 PM EDT [facility]. Avg Glucose 180 mg/dL 10/12/2024 10:19 PM EDT [facility] Blood VENOUS BLOOD / Unknown Venipuncture / Unknown 10/12/2024 9:12 PM EDT 10/12/2024 9:[address] [facility] [employer] [facility] - 10/12/2024 10:19 PM EDT REFERENCE RANGE: Normal: 4.0-5.6% Pre-diabetes: 5.7-6.4% Provisional diagnosis of diabetes: >6.4% Hgb F>10% and anything which shortens red cell survival, such as hemolytic anemia, or unstable hemoglobin variants such as HbSS, HbSC, or HbCC, will lower the HbA1c value associated with a given level of glycemic control. Thomas Aguiar MD (Ronny) CHEMISTRY ORDER MARKIE Final Result Performing Organization Address [facility]/[place] Co de Phone Number [facility] [employer] [address] , [place] [address] * (ABNORMAL) C-REACTIVE PROTEIN (10/12/2024 9:12 PM EDT) Pathologist [facility] CRP 28.69(H) <=5.00 mg/L 10/12/2024 9:[address] [facility] [employer] [facility] Blood VENOUS BLOOD / Unknown Venipuncture / Unknown 10/12/2024 9:12 PM EDT 10/12/2024 9:17 PM EDT Thomas Aguiar MD (Ronny) CHEMISTRY ORDER MARKIE Final Result Performing Organization Address [facility]/[place] Co de Phone Number [facility] [employer] , [place] [address] * SEDIMENTATION RATE AUTOMATED (10/12/2024 9:12 PM EDT) Pathologist [facility] Sed Rate 15 0 - 20 mm/hr 10/12/2024 9:[address] [facility] [employer] [facility] Blood VENOUS BLOOD / Unknown Venipuncture / Unknown 10/12/2024 9:12 PM EDT 10/12/2024 9:17 PM EDT us Thomas Zazueta (Verna Aguiar MD HEMATOLOGY JORY MERCADO Final Result Performing Organization Address City/[facility]/ZIP Co de Phone Number [facility] [employer] [address], [address] [place] [phone] * (ABNORMAL) REPEAT LACTIC ACID (10/12/2024 9:12 PM EDT) [facility] Lactic Acid 2.6(H) 0.5 - 1.9 mmol/L 10/12/2024 9:[address] [facility] [employer] [facility] Blood VENOUS BLOOD / Unknown Venipuncture / Unknown 10/12/2024 9:12 PM EDT 10/12/2024 9:17 PM EDT us Nuno Eaton MD CHEMISTRY ORDERABLES Final Resul t Performing Organization Address [facility]/[place] Co de Phone Number [facility] [employer] [address], [address] [place] [phone] * (ABNORMAL) GLUCOSE METER POC (10/12/2024 8:20 PM EDT) [facility] Glucose Meter POC 130(H) 70 - 100 mg/dL 10/12/2024 8:22 PM EDT [facility] Sample Type Capillary 10/12/2024 8:22 PM EDT [facility] Patient Status Non-Critical Patient 10/12/2024 8:22 PM EDT [facility] Blood BLOOD SPECIMEN / Unknown 10/12/2024 8:20 PM EDT 10/12/2024 8:22 PM EDT us Ahsan Parra Jr., MD POINT OF CARE TEST ORD ERABLES Final Result Performing Organization Address City/[facility]/ZIP Co de Phone Number [facility] [address] [place] [phone] * (ABNORMAL) BLOOD GAS, VENOUS (10/12/2024 6:50 PM EDT) pH Venous 7.28(L) 7.32 - 7.42 pH 10/12/2024 6:58 PM EDT [facility] pCO2 Venous 61(H) 41 - 51 mmHg 10/12/2024 6:58 PM EDT [facility] pO2 Venous 55(H) 25 - 40 mmHg 10/12/2024 6:58 PM EDT [facility] Comment:Interpret with cauti on. Not recommended to evaluate patient's oxygenation status. Base Excess Jesus 0.0 mmol/L 6:58 PM EDT [facility] Hco3 Venous 27.7 24.0 - 28.0 mmol/L 10/12/2024 6:58 PM EDT [facility] CO2 Total Jesus 25 25 - 29 mmol/L 10/12/2024 6:58 PM EDT [facility] O2 Sat. Venous 83.8(H) 40.0 - 70.0 % 10/12/2024 6:58 PM EDT [facility] [employer] O[employer] ra 10/12/2024 6:58 PM EDT [facility] Blood VENOUS BLOOD / Unknown Venipuncture / Unknown 10/12/2024 6:50 PM EDT 10/12/2024 6:54 PM EDT us Nuno Eaton MD CHEMISTRY ORDERABLES Final Resul t [facility] [address] [facility] , [place] [address] * PROCALCITONIN (10/12/2024 6:10 PM EDT) Procalcitonin 0.11 <=0.49 ng/mL 10/12/2024 7:09 PM EDT [facility] Blood VENOUS BLOOD / Unknown Venipuncture / Unknown 10/12/2024 6:10 PM EDT 10/12/2024 6:22 PM EDT Narrative [facility] - 10/12/2024 7:09 PM EDT Procalcitonin <0.50 ng/mL: Procalcitonin levels below 0.50 ng/mL on the first day of ICU admission represent a low risk for progression to severe sepsis and/or septic shock Procalcitonin >=0.50 ng/mL and <=2.00 ng/mL: If the procalcitonin measurement is performed shortly after the systemic infection process has started (usually less than 6 hours), this value may still be low. As various non-infectious conditions are known to induce procalcitonin as well, procalcitonin levels between 0.50 ng/mL and 2.00 ng/mL should be reviewed carefully to take into account the specific clinical background and condition(s) of the patient. Procalcitonin >2.00 ng/mL: Procalcitonin levels above 2.00 ng/mL on the first day of ICU admission represent a high risk for progression to severe sepsis and/or septic shock. us Nuno Eaton MD CHEMISTRY ORDERABLES Final Resul t Performing Organization Address [facility] Co de Phone Number [facility] [address] [place] [address] , [place] [address] * BLOOD CULTURE (NO STAIN) (10/12/2024 6:10 PM EDT) Culture Result No Growth at 120 hours. BLOOD CULTURE (NO STAIN) 10/17/2024 8:00 PM EDT [facility] Blood VENOUS BLOOD / Unknown Venipuncture / Unknown 10/12/2024 6:10 PM EDT 10/12/2024 6:17 PM EDT us Nuno Eaton MD MICROBIOLOGY - GENERAL ORDERABLE S Final Result Performing Organization Address [facility] Co de Phone Number [employer] [address] , [place] [address] * BLOOD CULTURE (NO STAIN) (10/12/2024 6:10 PM EDT) Culture Result No Growth at 120 hours. BLOOD CULTURE (NO STAIN) 10/17/2024 8:00 PM EDT [facility] Blood VENOUS BLOOD / Unknown Venipuncture / Unknown 10/12/2024 6:10 PM EDT 10/12/2024 6:17 PM EDT us Nuno Eaton MD MICROBIOLOGY - GENERAL ORDERABLE S Final Result Performing Organization Address City/[facility]/ZIP Co de Phone Number [facility] [address] [facility], [place] [address] * (ABNORMAL) LACTIC ACID (10/12/2024 6:10 PM EDT) Lactic Acid 3.1(H) 0.5 - 1.9 mmol/L 10/12/2024 6:28 PM EDT [facility] Blood VENOUS BLOOD / Unknown Venipuncture / Unknown 10/12/2024 6:10 PM EDT 10/12/2024 6:15 PM EDT us Nuno Eaton MD CHEMISTRY ORDERABLES Final Resul t Performing Organization Address [facility] Co de Phone Number [facility] [address] [place] [phone] * (ABNORMAL) BASIC METABOLIC PANEL (10/12/2024 6:10 PM EDT) Sodium 137 136 - 145 mmol/L 10/12/2024 6:32 PM EDT [facility] Potassium 5.4(H) 3.5 - 5.0 mmol/L 10/12/2024 6:32 PM EDT [facility] Chloride 99 98 - 107 mmol/L 10/12/2024 6:32 PM EDT [facility] Total CO2 24 22 - 29 mmol/L 10/12/2024 6:32 PM EDT [facility] Anion Gap 14 7 - 16 mmol/L 10/12/2024 6:32 PM EDT [facility] Calcium 9.2 8.8 - 10.4 mg/dL 10/12/2024 6:32 PM EDT [facility] Glucose Lvl 173(H) 70 - 99 mg/dL 10/12/2024 6:32 PM EDT [facility] BUN 21 8 - 23 mg/dL 10/12/2024 6:32 PM EDT [facility] Creatinine 0.97 0.67 - 1.30 mg/dL 10/12/2024 6:32 PM EDT [facility] eGFR (CKD-EPIcr 2020) 79 >=60 mL/min/1.7 3 m2 10/12/2024 6:32 PM EDT [facility] Comment:Estimated GFR was ca lculated using the CKD-EPIcr (2020) equation refit without race. The equation is recommended by the National Kidney Foundation - [place] [employer] of Nephrology Task Force. Blood VENOUS BLOOD / Unknown Venipuncture / Unknown 10/12/2024 6:10 PM EDT 10/12/2024 6:15 PM EDT us Nuno Eaton MD CHEMISTRY ORDERABLES Final Resul t [facility] [address] [place] [address] * (ABNORMAL) CBC WITH DIFF (10/12/2024 6:10 PM EDT) WBC 7.0 3.7 - 10.3 x10(3)/mcL 10/12/2024 6:19 PM EDT [facility] RBC 5.01 4.60 - 6.10 x10(6)/mcL 10/12/2024 6:19 PM EDT [facility] Hgb 14.9 13.7 - 17.5 g/dL 10/12/2024 6:19 PM EDT [facility] Hct 46.0 40.0 - 51.0 % 10/12/2024 6:19 PM EDT [facility] MCV 91.8 80.0 - 100.0 fL 10/12/2024 6:19 PM EDT [facility] MCH 29.7 26.0 - 34.0 pg 10/12/2024 6:19 PM EDT [facility] MCHC 32.4 30.7 - 35.5 g/dL 10/12/2024 6:19 PM EDT [facility] RDW 15.8(H) <=14.9 % 10/12/2024 6:19 PM EDT [facility] Platelet 202 155 - 369 x10(3)/mcL 10/12/2024 6:19 PM EDT [facility] MPV 11.2 8.8 - 12.5 fL 10/12/2024 6:19 PM EDT [facility] Neut Percent 64.1 % 10/12/2024 6:19 PM EDT [facility] Comment:Neutrophils equals s egs plus bands Imm Gran% 0.3 % 10/12/2024 6:19 PM EDT [facility] Comment:Automated count of m etamyelocytes, myelocytes and promyelocytes. Lymph Percent 23.5 % 10/12/2024 6:19 PM EDT [facility] [employer] Percent 8.9 % 10/12/2024 6:19 PM EDT [facility] Eos Percent 2.3 % 10/12/2024 6:19 PM EDT [facility] Baso Percent 0.9 % 10/12/2024 6:19 PM EDT [facility] Neut # 4.5 1.6 - 6.1 x10(3)/[facility] 10/12/2024 6:19 PM EDT [facility] Comment:Neutrophils equals s egs plus bands IMMGRAN# 0.0 0.0 - 0.1 x10(3)/mcL 10/12/2024 6:19 PM EDT [facility] Comment:Automated count of m etamyelocytes, myelocytes and promyelocytes. An absolute IG <0.1 is reported as 0.0. Lymph # 1.6 1.2 - 3.9 x10(3)/mcL 10/12/2024 6:19 PM EDT [facility] [employer] # 0.6 0.3 - 0.9 x10(3)/[facility] 10/12/2024 6:19 PM EDT [facility] Eos# 0.2 0.0 - 0.5 x10(3)/mcL 10/12/2024 6:19 PM EDT [facility] Baso # 0.1 0.0 - 0.1 x10(3)/[facility] 10/12/2024 6:19 PM EDT [facility] Blood VENOUS BLOOD / Unknown Venipuncture / Unknown 10/12/2024 6:10 PM EDT 10/12/2024 6:15 PM EDT us Nuno Eaton MD HEMATOLOGY ORDERABLES Final Resu lt [facility] [address] [place] [phone] * XR FOOT BILATERAL AP AND LATERAL (10/12/2024 5:57 PM EDT) Anatomical Region Laterality Modality Foot Radiographic Meagan ging 10/12/2024 5:57 PM EDT Impressions 10/12/2024 6:19 PM EDT 1. Small amount of subcutaneous gas in the dorsum of the right foot. 2. No acute bony abnormality of the feet. 3. Diffuse osteopenia which limits evaluation for erosive changes. Given this limitation, no osseous erosion is identified. - Note: Radiology results need to be interpreted within a comprehensive clinical context. If you have questions about the radiology report, please contact the office of the ordering clinician. Narrative 10/12/2024 6:19 PM EDT XR FOOT BILATERAL AP AND LATERAL, 10/12/2024 5:57 PM CLINICAL HISTORY: -infection COMPARISON: 09/13/2024 PROCEDURE COMMENTS: Bilateral imaging per the ordered protocol. FINDINGS: Right: Diffuse osteopenia which limits evaluation for erosive changes. Given this limitation, no osseous erosion is identified. Small amount of subcutaneous gas is seen in the dorsum of the right foot. No acute fracture or dislocation. Vascular calcifications. Plantar calcaneal spur. Left: Diffuse osteopenia which limits evaluation for erosive changes. Given this limitation, no osseous erosion is identified. Status post right first through third digit amputation. No acute fracture or dislocation. Vascular calcifications. Plantar calcaneal spur. Procedure Note Hiro Quinteros MD - 10/12/2024 XR FOOT BILATERAL AP AND LATERAL, 10/12/2024 5:57 PM CLINICAL HISTORY: -infection COMPARISON: 09/13/2024 PROCEDURE COMMENTS: Bilateral imaging per the ordered protocol. FINDINGS: Right: Diffuse osteopenia which limits evaluation for erosive changes. Giventhis limitation, no osseous erosion is identified. Small amount of subcutaneousgas is seen in the dorsum of the right foot. No acute fracture ordislocation. Vascular calcifications. Plantar calcaneal spur. Left: Diffuse osteopenia which limits evaluation for erosive changes. Giventhis limitation, no osseous erosion is identified. Status post right firstthrough third digit amputation. No acute fracture or dislocation. Vascular calcifications. Plantar calcaneal spur. IMPRESSION: 1. Small amount of subcutaneous gas in the dorsum of the right foot. 2. No acute bony abnormality of the feet. 3. Diffuse osteopenia which limits evaluation for erosive changes. Giventhis limitation, no osseous erosion is identified. - Note: Radiology results need to be interpreted within a comprehensiveclinical context. If you have questions about the radiology report, please contactthe office of the ordering clinician. us Nuno Eaton MD IMG DIAGNOSTIC IMAGING ORDERABLE S Final Result * XR TIBIA FIBULA BILATERAL AP AND LATERAL (10/12/2024 5:56 PM EDT) Anatomical Region Laterality Modality Leg Radiographic Meagan ging 10/12/2024 5:56 PM EDT Impressions 10/12/2024 6:23 PM EDT No acute osseous abnormality. - Note: Radiology results need to be interpreted within a comprehensive clinical context. If you have questions about the radiology report, please contact the office of the ordering clinician. Narrative 10/12/2024 6:23 PM EDT XR TIBIA FIBULA BILATERAL AP AND LATERAL, 10/12/2024 5:56 PM CLINICAL HISTORY: -infection COMPARISON: Left knee radiographs 08/16/2022 PROCEDURE COMMENTS: Bilateral imaging per the ordered protocol. FINDINGS: Right: No acute fracture or dislocation. No erosions or periostitis. Moderate right knee osteoarthrosis, most consistent the medial compartment. Fatty atrophy of the gastrocnemius muscle. Vascular calcifications. Left: No acute fracture or dislocation. No erosions or periostitis. Severe right medial compartment knee osteoarthrosis. Vascular calcifications. Fatty atrophy of the gastrocnemius muscle. Procedure Note Hiro Quinteros MD - 10/12/2024 XR TIBIA FIBULA BILATERAL AP AND LATERAL, 10/12/2024 5:56 PM CLINICAL HISTORY: -infection COMPARISON: Left knee radiographs 08/16/2022 PROCEDURE COMMENTS: Bilateral imaging per the ordered protocol. FINDINGS: Right: No acute fracture or dislocation. No erosions or periostitis. Moderateright knee osteoarthrosis, most consistent the medial compartment. Fatty atrophyof the gastrocnemius muscle. Vascular calcifications. Left: No acute fracture or dislocation. No erosions or periostitis. Severeright medial compartment knee osteoarthrosis. Vascular calcifications. Fattyatrophy of the gastrocnemius muscle. IMPRESSION: No acute osseous abnormality. - Note: Radiology results need to be interpreted within a comprehensiveclinical context. If you have questions about the radiology report, please contactthe office of the ordering clinician. us Nuno Eaton MD IMG DIAGNOSTIC IMAGING ORDERABLE S Final Result documented in this encounter Visit Diagnoses Diagnosis Cellulitis and abscess of foot, except toes- Primary Diabetic foot infection (HCC) Type II or unspecified type diabetes mellitus with other specified manifestations, not stated as uncontrolled Simple chronic bronchitis (HCC) Simple chronic bronchitis Major depressive disorder, single episode, severe (HCC) Major depressive disorder, single episode, severe, without mention of psychotic behavior Diabetic foot infection (HCC) Type II or unspecified type diabetes mellitus with other specified manifestations, not stated as uncontrolled Essential hypertension Unspecified essential hypertension Diabetes mellitus type 2 in nonobese (HCC) Type II or unspecified type diabetes mellitus without mention of complication, not stated as uncontrolled PAD (peripheral artery disease) Unspecified disorders of arteries and arterioles Malignant neoplasm of urinary bladder (HCC) Malignant neoplasm of bladder, part unspecified Coronary artery disease involving unga coronary artery of unga heart without angina pectoris Diabetic polyneuropathy associated with type 2 diabetes mellitus (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 CAD in unga artery Coronary atherosclerosis of unga coronary artery Major depressive disorder, single episode, severe (HCC) Major depressive disorder, single episode, severe, without mention of psychotic behavior DNR (do not resuscitate) Do not resuscitate status 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 2 diabetes mellitus, 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 necrosis (HCC) Diabetic leg ulcer (HCC) Type II or unspecified type diabetes mellitus with other specified manifestations, not stated as uncontrolled Hyperkalemia Hyperpotassemia Minor neurocognitive disorder Tobacco abuse Tobacco use disorder documented in this encounter Admitting Diagnoses Diagnosis Diabetic foot infection (HCC) Type II or unspecified type diabetes mellitus with other specified manifestations, not stated as uncontrolled documented in this encounter Administered Medications Inactive Administered Medications - up to 1 most recent administrations Medication Order MAR Action Action Date Dose Rate Site 0.9 % NaCl infusion Intravenous, at 100 mL/hr, CONTINUOUS, Starting on Tue10/23/24 at 0145, Until Tue10/24/24 at 0144, Post-op IV Restarted 10/23/2024 8:35 PM EDT 100 mL/hr acetaminophen (TYLENOL) tablet 1,000 mg 1,000 mg, Oral, PREPROCEDURE, 1 dose, Starting on Tue10/14/24 at 0615, Until Tue10/14/24 at 0750, Coanalgesic, Do not give if patient received acetaminophen within the last 6 hours Maximum adult dose of acetaminophen is 4000 mg from all sources in 24 hours., Pre-op (Holding/SDS Meds) Given 10/14/2024 7:50 AM EDT 1,000 mg acetaminophen (TYLENOL) tablet 650 mg 650 mg, Oral, EVERY 4 HOURS PRN, Starting on Tue10/12/24 at 1932, Until Tue10/25/24 at 2018, Pain, Headaches, Fever, Maximum adult dose of acetaminophen is 4000 mg from all sources in 24 hours. amLODIPine (NORVASC) tablet 5 mg 5 mg, Oral, 2 TIMES DAILY, First dose on Tue10/13/24 at 0130, Until Discontinued Given 10/25/2024 8:15 AM EDT 5 mg apixaban (ELIQUIS) tablet 5 mg 5 mg, Oral, 2 TIMES DAILY, First dose on Tue10/25/24 at 0900, Until Discontinued Given 10/25/2024 8:15 AM EDT 5 mg aspirin chewable tablet 81 mg 81 mg, Oral, DAILY, First dose on Tue10/23/24 at 0900, Until Discontinued Given 10/25/2024 8:15 AM EDT 81 mg atorvastatin (LIPITOR) tablet 40 mg 40 mg, Oral, NIGHTLY, First dose on Tue10/13/24 at 0000, Until Discontinued Given 10/24/2024 9:40 PM EDT 40 mg ceFEPIme (MAXIPIME) 1 g/50 mL IVPB 1 g, Intravenous, EVERY 8 HOURS SCHEDULED (3 times per day), 21 doses, First dose on Tue10/13/24 at 0400, Last dose on Tue10/19/24 at 2200, Administer over 4 Hours, Reason(s) for using ceFEPime in this patient (if none met, consider using cefTRIAXone, instead): Other (specify), Reason: dfi, Reason for Therapy: Infection Documented, Indication: DFI/osteomyelitis Rate/Dose Verify 10/17/2024 7:09 AM EDT 12.5 mL/hr ceFEPIme (MAXIPIME) 2 g in sterile water 19 mL IVP 2 g, Intravenous, ONCE, 1 dose, On Tue10/12/24 at 1930, Draw up 19 mL of Sterile Water for Injection into syringe and inject into ceFEPIme 2 g vial. Shake vial until powder is completely dissolved. Draw up entire content of vial (about 20 mL) into syringe. Administer intravenous push (IVP) over a period of 3 to 5 minutes., Reason(s) for using ceFEPime in this patient (if none met, consider using cefTRIAXone, instead): Risk factors for pseudomonal infection (IV antibiotic use within previous 90 days, recent pseudomonal infection, diabetic foot infection), Reason for Therapy: Infection Documented, Indication: Skin/soft tissue Given 10/12/2024 7:34 PM EDT 2 g cephALEXin (KEFLEX) capsule 500 mg 500 mg, Oral, EVERY 6 HOURS SCHEDULED (4 times per day), 40 doses, First dose on Tue10/17/24 at 1400, Last dose on Tue10/27/24 at 0600, Reason for Therapy: Infection Documented, Indication: DFI/osteomyelitis, Skin/soft tissue Given 10/25/2024 11:47 AM EDT 500 mg clopidogreL (PLAVIX) tablet 300 mg 300 mg, Oral, ONCE, 1 dose, On Tue10/22/24 at 2000 Given 10/22/2024 10:06 PM EDT 300 mg clopidogreL (PLAVIX) tablet 75 mg 75 mg, Oral, DAILY, First dose on Tue10/23/24 at 0900, Until Discontinued Given 10/25/2024 8:15 AM EDT 75 mg dexAMETHasone (DECADRON) 40 mg in sodium chloride 0.9 % IVPB 40 mg, Intravenous, ONCE, 1 dose, On Tue10/14/24 at 2330, Administer over 20 Minutes IV Started 10/15/2024 12:07 AM EDT 40 mg 150 mL/hr dextrose 50 % solution 25 mL 25 mL, Intravenous, PRN, Starting on Tue10/12/24 at 1931, Until Tue10/25/24 at 2017, Low blood sugar, If FSBS less than 70 mg/dl and patient cannot take orally, Check FSBS every 15 minutes and repeat 25 mL of D50 IV push and notify physician if FSBS less than 70 mg/dL VESICANT diphenhydrAMINE (BENADRYL) injection 25 mg 25 mg, Intravenous, EVERY 4 HOURS PRN, Starting on Tue10/14/24 at 2234, Until Tue10/25/24 at 2018, Itching Given 10/14/2024 10:49 PM EDT 25 mg doxycycline hyclate (VIBRA-TABS) tablet 100 mg 100 mg, Oral, EVERY 12 HOURS SCHEDULED (2 times per day), 40 doses, First dose on Tue10/17/24 at 1400, Last dose on Tue11/05/24 at 2100, Reason for Therapy: Infection Documented, Indication: DFI/osteomyelitis, Skin/soft tissue Given 10/25/2024 8:15 AM EDT 100 mg enoxaparin (LOVENOX) injection 40 mg 40 mg, Subcutaneous, DAILY - LMWH/Xa, First dose on Tue10/15/24 at 1500, Until Discontinued Given 10/23/2024 12:10 PM EDT 40 mg Abdominal Tissue ENSURE High Protein oral supplement 1 Each 1 Each (1 Box), Oral, EVERY MORNING (NUTR), First dose on Tue10/24/24 at 0900, Until Discontinued, Administer orally. Do not administer if NPO or on clear liquid diet. Not for IV use. Supplied by Nutrition Services Given 10/24/2024 9:00 AM EDT 1 Each fentaNYL (SUBLIMAZE) injection Intravenous, INTRAPROCEDURE, Starting on Tue10/22/24 at 1709, Until Tue10/22/24 at 1757, Intra-op Given 10/22/2024 5:57 PM EDT 25 mcg glucagon (GLUCAGEN) injection 1 mg 1 mg, Intramuscular, PRN, Starting on Tue10/12/24 at 1931, Until Tue10/25/24 at 2018, Low blood sugar, If FSBS less than 70 mg/dl, patient cannot take orally and without IV access, If patient is without IV access, give Glucagon 1 mg Intramuscularly, insert IV and call physician. heparin (porcine) injection INTRAPROCEDURE, Starting on Tue10/22/24 at 1736, Until Tue10/22/24 at 1736, Intra-op Given 10/22/2024 5:36 PM EDT 5,000 Units heparin 25,000 units in 250 mL 0.45% NaCl 950 Units/hr (9.5 mL/hr), Intravenous, CONTINUOUS, Starting on Tue10/23/24 at 1900, Until Tue10/24/24 at 0808 New Bag 10/23/2024 8:35 PM EDT 950 Units/hr 9.5 mL/hr heparin 25,000 units in 250 mL 0.45% NaCl 1,600 Units/hr (16 mL/hr), Intravenous, CONTINUOUS, Starting on Tue10/24/24 at 0945, Until Tue10/25/24 at 0727 Rate/Dose Change 10/24/2024 9:50 PM EDT 1,600 Units/hr 16 mL/hr hydrALAZINE (APRESOLINE) tablet 25 mg 25 mg, Oral, 3 TIMES DAILY PRN, Starting on Tue10/14/24 at 1322, Until Tue10/25/24 at 2018, High Blood Pressure, SBP >160 Given 10/15/2024 8:35 PM EDT 25 mg insulin aspart U-100 (NovoLOG) injection 1-10 Units 1-10 Units, Subcutaneous, 4 TIMES DAILY WITH MEALS, First dose on Tue10/12/24 at 2100, Until Discontinued, Medium dose algorithm: FSBS Correction NPO/Bedtime 121-149 1 units 0 units 150-199 2 units 1 units 200-250 4 units 2 units 251-300 6 units 3 units 301-350 8 units 4 units Greater than 350__10 units call MD _5 units call MD Notify physician if FSBS less than 50 or greater than 350. Do not use NPO dosing If patient receiving TPN or tube feeds. Correction insulin doses must be by at least 3 hours. Waste Sort Code = CORINNE MG Hazardous Waste Container Given 10/15/2024 9:05 AM EDT 8 Units Left Arm insulin aspart U-100 (NovoLOG) injection 1-15 Units 1-15 Units, Subcutaneous, 4 TIMES DAILY WITH MEALS, First dose on Tue10/15/24 at 1400, Until Discontinued, High dose algorithm: FSBS Correction NPO/Bedtime 121-149 2 units 1 units 150-199 3 units 2 units 200-250 6 units 3 units 251-300 9 units 4 units 301-350 12 units 6 units Greater than 350__15 units call MD _8 units call MD Notify physician if FSBS less than 50 or greater than 350. Do not use NPO dosing If patient receiving TPN or tube feeds. Correction insulin doses must be by at least 3 hours. Waste Sort Code = CORINNE MG Hazardous Waste Container Given 10/25/2024 9:20 AM EDT 2 Units Left Arm insulin aspart U-100 (NovoLOG) injection 3 Units 3 Units, Subcutaneous, 3 TIMES DAILY WITH MEALS, First dose on Tue10/18/24 at 1800, Until Discontinued, PO Diet: Obtain FSBS before patient begins eating. If there is clinical concern for hypoglycemia, due to poor oral intake, the nutritional (prandial) with or without the correctional insulin can be administered upon completion of meal. If less than (<) 50% of the meal is consumed, reduce nutritional (prandial) dose by 50%. Document in the MAR the reason for delay of insulin administration. Tube Feeds: Hold nutritional (prandial) insulin until patient is at goal rate for continuous tube feeds. Administer correctional dose of insulin. Waste Sort Code = CORINNE MG Hazardous Waste Container Given 10/24/2024 1:24 PM EDT 3 Units Right Arm insulin aspart U-100 (NovoLOG) injection 6 Units 6 Units, Subcutaneous, 3 TIMES DAILY WITH MEALS, First dose (after last modification) on Tue10/24/24 at 1915, Until Discontinued, PO Diet: Obtain FSBS before patient begins eating. If there is clinical concern for hypoglycemia, due to poor oral intake, the nutritional (prandial) with or without the correctional insulin can be administered upon completion of meal. If less than (<) 50% of the meal is consumed, reduce nutritional (prandial) dose by 50%. Document in the MAR the reason for delay of insulin administration. Tube Feeds: Hold nutritional (prandial) insulin until patient is at goal rate for continuous tube feeds. Administer correctional dose of insulin. Waste Sort Code = CORINNE RHODESRA Hazardous Waste Container Given 10/25/2024 9:20 AM EDT 6 Units Left Arm insulin glargine U-100 (LANTUS) injection 10 Units 10 Units, Subcutaneous, EVERY EVENING (INSULIN), First dose on Tue10/13/24 at 1900, Until Discontinued, Do not mix with other insulins A blood sugar is not required prior to administering the Lantus dose. Assess the trend of blood sugars within the last 24 hours. If 2 out of 3 blood sugars are less than (<) 120, contact pharmacy to decrease the total Lantus dose by 20%. Waste Sort Code = BKC Given 10/14/2024 7:14 PM EDT 10 Units Right Arm insulin glargine U-100 (LANTUS) injection 20 Units 20 Units, Subcutaneous, EVERY EVENING (INSULIN), First dose (after last modification) on Tue10/15/24 at 1900, Until Discontinued, Do not mix with other insulins A blood sugar is not required prior to administering the Lantus dose. Assess the trend of blood sugars within the last 24 hours. If 2 out of 3 blood sugars are less than (<) 120, contact pharmacy to decrease the total Lantus dose by 20%. Waste Sort Code = BKC Given 10/15/2024 6:11 PM EDT 20 Units Left Arm insulin glargine U-100 (LANTUS) injection 30 Units 30 Units, Subcutaneous, EVERY EVENING (INSULIN), First dose (after last modification) on Tue10/16/24 at 1900, Until Discontinued, Do not mix with other insulins A blood sugar is not required prior to administering the Lantus dose. Assess the trend of blood sugars within the last 24 hours. If 2 out of 3 blood sugars are less than (<) 120, contact pharmacy to decrease the total Lantus dose by 20%. Waste Sort Code = BKC Given 10/16/2024 6:39 PM EDT 30 Units Left Arm insulin glargine U-100 (LANTUS) injection 35 Units 35 Units, Subcutaneous, EVERY EVENING (INSULIN), First dose (after last modification) on Tue10/17/24 at 1900, Until Discontinued, Do not mix with other insulins A blood sugar is not required prior to administering the Lantus dose. Assess the trend of blood sugars within the last 24 hours. If 2 out of 3 blood sugars are less than (<) 120, contact pharmacy to decrease the total Lantus dose by 20%. Waste Sort Code = BKC Given 10/17/2024 6:32 PM EDT 35 Units Right Arm insulin glargine U-100 (LANTUS) injection 40 Units 40 Units, Subcutaneous, EVERY EVENING (INSULIN), First dose (after last modification) on Tue10/18/24 at 1900, Until Discontinued, Do not mix with other insulins A blood sugar is not required prior to administering the Lantus dose. Assess the trend of blood sugars within the last 24 hours. If 2 out of 3 blood sugars are less than (<) 120, contact pharmacy to decrease the total Lantus dose by 20%. Waste Sort Code = BKC Given 10/23/2024 6:44 PM EDT 40 Units Abdominal Tissue insulin glargine U-100 (LANTUS) injection 45 Units 45 Units, Subcutaneous, EVERY EVENING (INSULIN), First dose (after last modification) on Tue10/24/24 at 1915, Until Discontinued, Do not mix with other insulins A blood sugar is not required prior to administering the Lantus dose. Assess the trend of blood sugars within the last 24 hours. If 2 out of 3 blood sugars are less than (<) 120, contact pharmacy to decrease the total Lantus dose by 20%. Waste Sort Code = BKC Given 10/24/2024 7:00 PM EDT 45 Units Left Arm iopamidoL (ISOVUE-370) 370 mg iodine /mL (76 %) injection (LOW) 115 mL 115 mL, Intravenous, ONCE PRN, 1 dose, Starting on Tue10/22/24 at 1818, Until Tue10/22/24 at 1818, Radiography/Imaging, Radiology Procedure, VESICANT , IR (Contrasts) Given 10/22/2024 6:18 PM EDT 115 mL isosorbide mononitrate (IMDUR) CR tablet 30 mg 30 mg, Oral, NIGHTLY, First dose on Tue10/13/24 at 0000, Until Discontinued Given 10/24/2024 9:40 PM EDT 30 mg lidocaine 10 mg/mL (1 %) injection (PF) Subcutaneous, INTRAPROCEDURE, Starting on Tue10/22/24 at 1723, Until Tue10/22/24 at 1723, Intra-op Given 10/22/2024 5:23 PM EDT 5 mL Left Groin lisinopriL (PRINIVIL;ZESTril) tablet 10 mg 10 mg, Oral, DAILY, First dose on Tue10/13/24 at 0900, Until Discontinued, +++ACEI Medication+++ Given 10/14/2024 10:13 AM EDT 10 mg lisinopriL (PRINIVIL;ZESTril) tablet 20 mg 20 mg, Oral, DAILY, First dose (after last modification) on Tue10/15/24 at 0900, Until Discontinued, +++ACEI Medication+++ Given 10/25/2024 8:15 AM EDT 20 mg metoprolol (LOPRESSOR) tablet 50 mg 50 mg, Oral, 2 TIMES DAILY, First dose on Tue10/13/24 at 0900, Until Discontinued, Hold for HR <60 Preferably taken with or immediately following meals. Take consistently with relation to food. Given 10/24/2024 9:41 PM EDT 50 mg metroNIDAZOLE (FLAGYL) IVPB 500 mg 500 mg, Intravenous, ONCE, 1 dose, On Tue10/12/24 at 1930, Administer over 30 Minutes, VESICANT , Reason for Therapy: Infection Documented, Indication: Skin/soft tissue IV Started 10/12/2024 7:42 PM EDT 500 mg 200 mL/hr metroNIDAZOLE (FLAGYL) IVPB 500 mg 500 mg, Intravenous, EVERY 8 HOURS SCHEDULED (3 times per day), 21 doses, First dose (after last reorder) on Tue10/13/24 at 0400, Last dose on Tue10/19/24 at 2200, Administer over 30 Minutes, VESICANT , Reason for Therapy: Infection Documented, Indication: Skin/soft tissue IV Restarted 10/17/2024 6:24 AM EDT 200 mL/hr miconazole (MICATIN) 2 % powder Topical, 2 TIMES DAILY, 84 doses, First dose on Tue10/14/24 at 0900, Last dose on Tue11/24/24 at 2100, Application site: groin/coccyx Given 10/25/2024 8:17 AM EDT midazolam (VERSED) injection Intravenous, INTRAPROCEDURE, Starting on Tue10/22/24 at 1709, Until Tue10/22/24 at 1726, Intra-op Given 10/22/2024 5:26 PM EDT 1 mg morphine (MS CONTIN) CR tablet 45 mg 45 mg, Oral, EVERY 12 HOURS SCHEDULED (2 times per day), First dose on Tue10/13/24 at 0900, Until Discontinued, Do Not Crush Or Chew Given 10/25/2024 8:15 AM EDT 45 mg ondansetron (ZOFRAN) injection 4 mg 4 mg, Intravenous, EVERY 4 HOURS PRN, Starting on Tue10/12/24 at 1933, Until Tue10/25/24 at 2018, Nausea, Vomiting pregabalin (LYRICA) capsule 300 mg 300 mg, Oral, 2 TIMES DAILY, First dose (after last modification) on Tue10/13/24 at 0900, Until Discontinued Given 10/25/2024 8:15 AM EDT 300 mg sodium chloride 0.9 % 1,000 mL IV bolus Intravenous, ONCE, 1 dose, On Tue10/12/24 at 1900, at 983.6 mL/hr IV Started 10/12/2024 6:52 PM EDT 983.6 mL/hr sodium chloride 0.9% IV line flush 20-50 mL 20-50 mL, Intravenous, at 150-600 mL/hr, PRN, Starting on Tue10/14/24 at 1730, Until Tue10/25/24 at 2018, Line Care, Flush with a minimum of 20 mL after IVPB to insure complete administration of the dose. May use the saline infusion to back flush IVPB tubing as needed. sodium chloride 0.9% IV line flush 50 mL 50 mL, Intravenous, at 999 mL/hr, PRN, Starting on Tue10/12/24 at 1720, Until Tue10/14/24 at 1719, Line Care, Flush with 50 mL after IVPB to insure complete administration of the dose. May use the saline infusion to back flush IVPB tubing as needed., Use this order to document priming and flushing IV line after medication administration. IV Started 10/13/2024 10:06 PM EDT 50 mL 50 mL/hr sodium chloride 0.9% syringe Intravenous, EVERY 12 HOURS SCHEDULED (2 times per day), First dose on Tue10/14/24 at 2100, Until Discontinued, Flush with 3-5 mL saline for PERIPHERAL saline lock maintenance. Given 10/24/2024 9:41 PM EDT 10 mL sodium chloride 0.9% syringe Intravenous, PRN, Starting on Tue10/14/24 at 1730, Until Tue10/25/24 at 2018, Line Care, Flush with 5-10 mL saline pre/post IVP, and 5 mL prior to IVPB or blood product administration. sodium zirconium cyclosilicate (LOKELMA) packet 5 g 5 g, Oral, ONCE, 1 dose, On Tue10/12/24 at 2245, Administer other oral medications at least 2 hours before or 2 hours after administration. Empty entire contents of packet into drinking glass containing at least 3 tablespoons (45 mL) of water. Stir well and drink immediately. If powder remains in drinking glass, add water, stir and drink immediately. Repeat until no powder remains to ensure full dose is taken. Given 10/13/2024 1:18 AM EDT 5 g sterile water injection 1 mL 1 mL, Injection, PRN, Starting on Tue10/12/24 at 1931, Until Tue10/25/24 at 2018, Use for drug dilution, Use to dilute and administer glucagon injection vancomycin (VANCOCIN) 1,750 mg in sodium chloride 0.9 % 550 mL IVPB 1,750 mg, Intravenous, EVERY 18 HOURS, 6 doses, First dose on Tue10/16/24 at 2200, Last dose on Tue10/20/24 at 1600, Administer over 120 Minutes, VESICANT , Reason for Therapy: Infection Suspected, Indication: DFI/osteomyelitis, Skin/soft tissue Rate/Dose Verify 10/16/2024 11:24 PM EDT 275 mL/hr vancomycin (VANCOCIN) 2,000 mg in sodium chloride 0.9 % 550 mL IVPB 2,000 mg, Intravenous, ONCE, 1 dose, On Tue10/12/24 at 2045, Administer over 120 Minutes, VESICANT , Reason for Therapy: Infection Suspected, Indication: Skin/soft tissue IV Started 10/12/2024 10:13 PM EDT 2,000 mg 275 mL/hr vancomycin in dextrose 5% (VANCOCIN) premix IVPB 1,500 mg 1,500 mg, Intravenous, EVERY 18 HOURS, 5 doses, First dose on 10/13/24 at 1600, Last dose on Tue10/16/24 at 1600, Administer over 120 Minutes, VESICANT , Reason for Therapy: Infection Suspected, Indication: Skin/soft tissue, DFI/osteomyelitis IV Started 10/14/2024 10:28 AM EDT 1,500 mg 150 mL/hr vancomycin in dextrose 5% (VANCOCIN) premix IVPB 1,500 mg 1,500 mg, Intravenous, *EVERY 12 HOURS, 6 doses, First dose (after last modification) on Tue10/15/24 at 1630, Last dose on [place] 10/18/24 at 0430, Administer over 120 Minutes, VESICANT , Reason for Therapy: Infection Suspected, Indication: Skin/soft tissue, DFI/osteomyelitis IV Started 10/16/2024 4:44 AM EDT 1,500 mg 100 mL/hr documented in this encounter Discontinued Medications Medication Sig Discontinue Reason Start Date End Da te metFORMIN (GLUCOPHAGE) 500 mg tablet Take 500 mg by mouth 3 times daily. Stop Taking at Discharge 01/08/2013 10/25/2024 nitroGLYCERIN (NITROSTAT) 0.[address] 1 Tab under the tongue every 5 minutes as needed for Chest pain for 3 doses. Stop Taking at Discharge 01/18/2013 10/25/2024 CINNAMON BARK (CINNAMON ORAL) Take 2,000 mg by mouth daily. Stop Taking at Discharge 10/25/2024 insulin glargine U-100 (LANTUS) 100 unit/mL SubQ Solution Subcutaneous (Inject under the skin) 10 Units every evening. Stop Taking at Discharge 08/19/2022 10/25/2024 diclofenac (VOLTAREN) 1 % Top Gel Apply 2 g topically 2 times daily. Stop Taking at Discharge 08/19/2022 10/25/2024 tamsulosin (FLOMAX) 0.4 mg Oral Capsule Take 1 Capsule by mouth nightly. Stop Taking at Discharge 08/28/2023 10/25/2024 mirabegron (MYRBETRIQ) 25 mg Oral Tablet Sustained Release 24 hr Take 1 Tablet by mouth daily. Stop Taking at Discharge 08/28/2023 10/25/2024 cyanocobalamin 1,000 mcg Oral Tablet Take 1 Tablet by mouth daily. Stop Taking at Discharge 08/29/2023 10/25/2024 ferrous sulfate 325 mg (65 mg iron) Oral Tablet Take 1 Tablet by mouth daily. Stop Taking at Discharge 08/28/2023 10/25/2024 insulin lispro (HUMALOG U-100 INSULIN) 100 unit/mL SubQ Solution Subcutaneous (Inject under the skin) 10-12 Units 3 times daily (before meals). Stop Taking at Discharge 08/04/2022 10/25/2024 LEVEMIR FLEXPEN 100 unit/mL (3 mL) SubQ Insulin Pen Subcutaneous (Inject under the skin) 50 Units every evening. Stop Taking at Discharge 10/25/2024 morphine (MSIR) 15 mg Oral Tablet Take 15 mg by mouth 2 times daily. Stop Taking at Discharge 10/25/2024 lisinopriL (PRINIVIL;ZESTRIL) 10 mg Oral Tablet Take 10 mg by mouth daily. Stop Taking at Discharge 07/10/2023 10/25/2024 cilostazoL (PLETAL) 50 mg Oral Tablet Take 50 mg by mouth 2 times daily. Stop Taking at Discharge 08/25/2023 10/25/2024 pregabalin (LYRICA) 150 mg Oral Capsule Take 150 mg by mouth 2 times daily. Stop Taking at Discharge 10/25/2024 documented as of this encounter Active and Recently Administered Medications Times are shown in EDT. Scheduled Medication Order 10/23/2024 10/24/2024 10/25/2024 amLODIPine (NORVASC) tablet 5 mg 5 mg, Oral, 2 TIMES DAILY, First dose on Tue10/13/24 at 0130, Until Discontinued 901 (Given - Provider: Niya Monteiro, KERRY)2035 (Given - Provider: Apolonia Waters RN) 111 (Given - Provider: Leola Chun, KERRY)214 (Given - Provider: Lisa Trejo, KERRY) 0815 (Given - Provider: Barbara Headley, KERRY) apixaban (ELIQUIS) tablet 5 mg 5 mg, Oral, 2 TIMES DAILY, First dose on Tue10/25/24 at 0900, Until Discontinued 814 (Given - Provider: Barbara Headley, KERRY) aspirin chewable tablet 81 mg 81 mg, Oral, DAILY, First dose on Tue10/23/24 at 0900, Until Discontinued 900 (Given - Provider: Niya Monteiro RN) 111 (Given - Provider: Leola Chun, KERRY) 08 (Given - Provider: Barbara Headley, KERRY) atorvastatin (LIPITOR) tablet 40 mg 40 mg, Oral, NIGHTLY, First dose on 10/13/24 at 0000, Until Discontinued 2035 (Given - Provider: Apolonia Waters RN) 2139 (Given - Provider: Lisa Trejo, KERRY) cephALEXin (KEFLEX) capsule 500 mg 500 mg, Oral, EVERY 6 HOURS SCHEDULED (4 times per day), 40 doses, First dose on Tue10/17/24 at 1400, Last dose on Tue10/27/24 at 0600, Reason for Therapy: Infection Documented, Indication: DFI/osteomyelitis, Skin/soft tissue 0546 (Given - Provider: Apolonia Waters RN)1210 (Given - Provider: Niya Monteiro, KERRY)1842 (Given - Provider: Niya Monteiro, RN)2310 (Given - Provider: Apolonia Waters, KERRY) 0549 (Given - Provider: Apolonia Waters RN)1114 (Given - Provider: Leola Chun, KERRY)1820 (Given - Provider: Leola Chun, KERRY) 0043 (Given - Provider: Lisa Trejo, KERRY)0524 (Given - Provider: Lisa Trejo, KERRY)1147 (Given - Provider: Barbara Headley, KERRY) clopidogreL (PLAVIX) tablet 75 mg 75 mg, Oral, DAILY, First dose on Tue10/23/24 at 0900, Until Discontinued 09 (Given - Provider: Niya Monteiro, RN) 111 (Given - Provider: Leola Chun, RN) 0815 (Given - Provider: Barbara Headley, RN) doxycycline hyclate (VIBRA-TABS) tablet 100 mg 100 mg, Oral, EVERY 12 HOURS SCHEDULED (2 times per day), 40 doses, First dose on Tue10/17/24 at 1400, Last dose on Tue11/05/24 at 2100, Reason for Therapy: Infection Documented, Indication: DFI/osteomyelitis, Skin/soft tissue 900 (Given - Provider: Niya Monteiro RN)2035 (Given - Provider: Apolonia Waters, KERRY) 111 (Given - Provider: Leola Chun, KERRY)2139 (Given - Provider: Lisa Trejo RN) 0815 (Given - Provider: Barbara Headley, KERRY) enoxaparin (LOVENOX) injection 40 mg (CANCELED) 40 mg, Subcutaneous, DAILY - LMWH/Xa, First dose on Tue10/15/24 at 1500, Until Discontinued 1210 (Given - Provider: Niya Monteiro RN) ENSURE High Protein oral supplement 1 Each 1 Each (1 Box), Oral, EVERY MORNING (NUTR), First dose on Tue10/24/24 at 0900, Until Discontinued, Administer orally. Do not administer if NPO or on clear liquid diet. Not for IV use. Supplied by Nutrition Services 09 (Given - Provider: Leola Chun, KERRY) 09 (Not Given - Provider: Barbara Headley, KERRY - Reason: Patient Declined) insulin aspart U-100 (NovoLOG) injection 1-15 Units 1-15 Units, Subcutaneous, 4 TIMES DAILY WITH MEALS, First dose on Tue10/15/24 at 1400, Until Discontinued, High dose algorithm: FSBS Correction NPO/Bedtime 121-149 2 units 1 units 150-199 3 units 2 units 200-250 6 units 3 units 251-300 9 units 4 units 301-350 12 units 6 units Greater than 350__15 units call MD _8 units call MD Notify physician if FSBS less than 50 or greater than 350. Do not use NPO dosing If patient receiving TPN or tube feeds. Correction insulin doses must be by at least 3 hours. Waste Sort Code = BLACK RCRA Hazardous Waste Container 0908 (Given - Provider: Niya Monteiro, RN)1332 (Not Given - Provider: iNya Monteiro RN - Reason: Patient Declined - Comment: pt declined ate a full meal prior to getting it checked and he said he doesnt want any)1842 (Given - Provider: Niya Monteiro RN - Comment: pt ate small snack not long before, He asked to only take the NPO dose of this)2310 (Given - Provider: Apolonia Waters RN - Comment: d/t pt's eating and last insulin dose) 0800 (Given - Provider: Leola Chun RN - Comment: [phone] (Given - Provider: Leola Chun RN - Comment: [phone] (Given - Provider: Leola Chun RN - Comment: 328 and not eating dinner)2205 (Given - Provider: Lisa Trejo, KERRY) 0920 (Given - Provider: Barbara Headley, KERRY)1309 (Not Given - Provider: Barbara Headley RN - Reason: Patient Declined - Comment: on discharge) insulin aspart U-100 (NovoLOG) injection 3 Units (CANCELED) 3 Units, Subcutaneous, 3 TIMES DAILY WITH MEALS, First dose on Tue10/18/24 at 1800, Until Discontinued, PO Diet: Obtain FSBS before patient begins eating. If there is clinical concern for hypoglycemia, due to poor oral intake, the nutritional (prandial) with or without the correctional insulin can be administered upon completion of meal. If less than (<) 50% of the meal is consumed, reduce nutritional (prandial) dose by 50%. Document in the MAR the reason for delay of insulin administration. Tube Feeds: Hold nutritional (prandial) insulin until patient is at goal rate for continuous tube feeds. Administer correctional dose of insulin. Waste Sort Code = BLACK RCRA Hazardous Waste Container 0909 (Given - Provider: Niya Monteiro RN)1332 (Not Given - Provider: Niya Monteiro RN - Reason: Patient Declined - Comment: ate full meal before bs check, said he didnt want this dose becasue he was lower this morning and didnt eat much prior)184 (Given - Provider: Niya Monteiro RN - Comment: said ok to take this one,) 0801 (Given - Provider: Leola Chun RN - Comment: [phone] (Given - Provider: Leola Chun RN - Comment: [phone]) insulin aspart U-100 (NovoLOG) injection 6 Units 6 Units, Subcutaneous, 3 TIMES DAILY WITH MEALS, First dose (after last modification) on Tue10/24/24 at 1915, Until Discontinued, PO Diet: Obtain FSBS before patient begins eating. If there is clinical concern for hypoglycemia, due to poor oral intake, the nutritional (prandial) with or without the correctional insulin can be administered upon completion of meal. If less than (<) 50% of the meal is consumed, reduce nutritional (prandial) dose by 50%. Document in the MAR the reason for delay of insulin administration. Tube Feeds: Hold nutritional (prandial) insulin until patient is at goal rate for continuous tube feeds. Administer correctional dose of insulin. Waste Sort Code = BLACK HARITHA Hazardous Waste Container 1914 (Not Given - Provider: Leola Chun RN - Reason: Other - Comment: patient refusing dinner)2140 (Given - Provider: Lisa Trejo, RN) 0920 (Given - Provider: Barbara Headley, RN)1309 (Not Given - Provider: Barbara Headley, KERRY - Reason: Patient Declined - Comment: on discharge, not eating here) insulin glargine U-100 (LANTUS) injection 40 Units (CANCELED) 40 Units, Subcutaneous, EVERY EVENING (INSULIN), First dose (after last modification) on Tue10/18/24 at 1900, Until Discontinued, Do not mix with other insulins A blood sugar is not required prior to administering the Lantus dose. Assess the trend of blood sugars within the last 24 hours. If 2 out of 3 blood sugars are less than (<) 120, contact pharmacy to decrease the total Lantus dose by 20%. Waste Sort Code = BK 1844 (Given - Provider: Niya Monteiro RN) insulin glargine U-100 (LANTUS) injection 45 Units 45 Units, Subcutaneous, EVERY EVENING (INSULIN), First dose (after last modification) on Tue10/24/24 at 1915, Until Discontinued, Do not mix with other insulins A blood sugar is not required prior to administering the Lantus dose. Assess the trend of blood sugars within the last 24 hours. If 2 out of 3 blood sugars are less than (<) 120, contact pharmacy to decrease the total Lantus dose by 20%. Waste Sort Code = BK 1907 (Given - Provider: Leola Chun RN) isosorbide mononitrate (IMDUR) CR tablet 30 mg 30 mg, Oral, NIGHTLY, First dose on Tue10/13/24 at 0000, Until Discontinued 2035 (Given - Provider: Apolonia Waters, KERRY) 2139 (Given - Provider: Lisa Trejo, KERRY) lisinopriL (PRINIVIL;ZESTril) tablet 20 mg 20 mg, Oral, DAILY, First dose (after last modification) on Tue10/15/24 at 0900, Until Discontinued, +++ACEI Medication+++ 900 (Given - Provider: Niya Monteiro RN) 111 (Given - Provider: Leola Chun RN) 0815 (Given - Provider: Barbara Headley RN) metoprolol (LOPRESSOR) tablet 50 mg 50 mg, Oral, 2 TIMES DAILY, First dose on 10/13/24 at 0900, Until Discontinued, Hold for HR <60 Preferably taken with or immediately following meals. Take consistently with relation to food. 09 (Not Given - Provider: Niya Monteiro RN - Reason: Order parameters not met)2099 (Not Given - Provider: Apolonia Waters RN - Reason: Order parameters not met) 111 (Given - Provider: Leola Chun RN)2140 (Given - Provider: Lisa Trejo, KERRY) 0815 (Not Given - Provider: Barbara Headley, KERRY - Reason: Order parameters not met) miconazole (MICATIN) 2 % powder Topical, 2 TIMES DAILY, 84 doses, First dose on 10/14/24 at 0900, Last dose on 11/24/24 at 2100, Application site: groin/coccyx 0908 (Given - Provider: Niya Monteiro RN)2035 (Given - Provider: Apolonia Waters RN) 899 (Given - Provider: Leola Chun, KERRY)2140 (Given - Provider: Lisa Trejo, KERRY) 816 (Given - Provider: Barbara Headley, KERRY) morphine (MS CONTIN) CR tablet 45 mg 45 mg, Oral, EVERY 12 HOURS SCHEDULED (2 times per day), First dose on 10/13/24 at 0900, Until Discontinued, Do Not Crush Or Chew 09 (Given - Provider: Niya Monteiro RN)2035 (Given - Provider: Apolonia Waters RN) 1113 (Given - Provider: Leola Chun, KERRY)2139 (Given - Provider: Lisa Trejo, KERRY) 08 (Given - Provider: Barbara Headley, KERRY) pregabalin (LYRICA) capsule 300 mg 300 mg, Oral, 2 TIMES DAILY, First dose (after last modification) on 10/13/24 at 0900, Until Discontinued 900 (Given - Provider: Niya Monteiro RN)2035 (Given - Provider: Apolonia Waters RN) 1113 (Given - Provider: Leola Chun, KERRY)2139 (Given - Provider: Lisa Trejo, KERRY) 08 (Given - Provider: Barbara Headley, RN) sodium chloride 0.9% syringe Intravenous, EVERY 12 HOURS SCHEDULED (2 times per day), First dose on 10/14/24 at 2100, Until Discontinued, Flush with 3-5 mL saline for PERIPHERAL saline lock maintenance. 0900 (Not Given - Provider: Niya Monteiro RN - Reason: IV Infusing)2034 (Given - Provider: Apolonia Waters, KERRY) 899 (Not Given - Provider: Leola Johanne Adiel, RN - Reason: IV Infusing)2141 (Given - Provider: Lisa Trejo, RN) 0817 (Not Given - Provider: Barbara Headley RN - Reason: Loss of IV access) Continuous Medication Order 10/23/2024 10/24/2024 10/25/2024 0.9 % NaCl infusion (CANCELED) Intravenous, at 100 mL/hr, CONTINUOUS, Starting on Tue10/23/24 at 0145, Until Tue10/24/24 at 0144, Post-op 0146 (New Bag - Provider: Apolonia Waters, KERRY)0807 (IV Paused - Provider: Niya Monteiro, RN)0833 (IV Restarted - Provider: Niya Monteiro, RN)0843 (IV Paused - Provider: Niya Monteiro, RN)0851 (IV Restarted - Provider: Niya Monteiro RN)0858 (Rate/Dose Verify - Provider: Niya Monteiro, RN)1850 (IV Paused - Provider: Niya Monteiro, RN - Comment: iv leaking)2035 (IV Restarted - Provider: Apolonia Waters RN) 0144 (Stopped - Provider: Apolonia Waters RN - Comment: [Order ends at this time. Document the following action when infusion is complete: Stopped]) heparin 25,000 units in 250 mL 0.45% NaCl (CANCELED) 950 Units/hr (9.5 mL/hr), Intravenous, CONTINUOUS, Starting on Tue10/23/24 at 1900, Until Tue10/24/24 at 0808 203 (New Bag - Provider: Apolonia Waters RN) 1111 (Stopped - Provider: Leola Chun, KERRY - Comment: [Order ends at this time. Document the following action when infusion is complete: Stopped]) heparin 25,000 units in 250 mL 0.45% NaCl (CANCELED) 1,600 Units/hr (16 mL/hr), Intravenous, CONTINUOUS, Starting on Tue10/24/24 at 0945, Until Tue10/25/24 at 0727 1112 (IV Restarted - Provider: Leola Chun, KERRY)1112 (Rate/Dose Verify - Provider: Lisa Trejo, KERRY)1555 (Rate/Dose Change - Provider: Leola Chun, KERRY)1601 (Rate/Dose Verify - Provider: Lisa Trejo, KERRY)1927 (Rate/Dose Verify - Provider: Lisa Trejo, KERRY)2143 (New Bag - Provider: Lisa Trejo, KERRY)2150 (Rate/Dose Change - Provider: Lisa Trejo, RN) 0746 (Stopped - Provider: Barbara Headley RN) PRN Medication Order 10/23/2024 10/24/2024 10/25/2024 acetaminophen (TYLENOL) tablet 650 mg 650 mg, Oral, EVERY 4 HOURS PRN, Starting on Tue10/12/24 at 1932, Until Tue10/25/24 at 2018, Pain, Headaches, Fever, Maximum adult dose of acetaminophen is 4000 mg from all sources in 24 hours. dextrose 50 % solution 25 mL 25 mL, Intravenous, PRN, Starting on Tue10/12/24 at 1931, Until Tue10/25/24 at 2018, Low blood sugar, If FSBS less than 70 mg/dl and patient cannot take orally, Check FSBS every 15 minutes and repeat 25 mL of D50 IV push and notify physician if FSBS less than 70 mg/dL VESICANT diphenhydrAMINE (BENADRYL) injection 25 mg 25 mg, Intravenous, EVERY 4 HOURS PRN, Starting on Tue10/14/24 at 2234, Until Tue10/25/24 at 2018, Itching glucagon (GLUCAGEN) injection 1 mg(Linked Group 1) 1 mg, Intramuscular, PRN, Starting on Tue10/12/24 at 1931, Until Tue10/25/24 at 2018, Low blood sugar, If FSBS less than 70 mg/dl, patient cannot take orally and without IV access, If patient is without IV access, give Glucagon 1 mg Intramuscularly, insert IV and call physician. hydrALAZINE (APRESOLINE) tablet 25 mg 25 mg, Oral, 3 TIMES DAILY PRN, Starting on Tue10/14/24 at 1322, Until Tue10/25/24 at 2018, High Blood Pressure, SBP >160 morphine injection 1-2 mg 1-2 mg, Intravenous, EVERY 15 MIN PRN, Starting on Tue10/23/24 at 0007, Until Tue10/25/24 at 2017, Pain, Begin with lowest dose unless otherwise directed. Reassess pain in 15 minutes. If pain unrelieved, remainder of dose may be given to patient. Maximum dose 4 mg, Post-op ondansetron (ZOFRAN) injection 4 mg 4 mg, Intravenous, EVERY 4 HOURS PRN, Starting on Tue10/12/24 at 1933, Until Tue10/25/24 at 2017, Nausea, Vomiting oxyCODONE-acetaminophen (PERCOCET) 5-325 mg per tablet 1-2 Tablet 1-2 Tablet, Oral, EVERY 4 HOURS PRN, Starting on Tue10/23/24 at 0007, Until Tue10/25/24 at 2017, Pain, For back pain after sheath pulled, Begin with lowest dose unless otherwise directed. Reassess pain in one hour. If pain unrelieved, remainder of dose may be given to patient. *Maximum adult dose of acetaminophen is 4000 mg from all sources in 24 hours.*, Post-op sodium chloride 0.9% IV line flush 20-50 mL 20-50 mL, Intravenous, at 150-600 mL/hr, PRN, Starting on Tue10/14/24 at 1730, Until Tue10/25/24 at 2017, Line Care, Flush with a minimum of 20 mL after IVPB to insure complete administration of the dose. May use the saline infusion to back flush IVPB tubing as needed. sodium chloride 0.9% syringe Intravenous, PRN, Starting on Tue10/14/24 at 1730, Until Tue10/25/24 at 2017, Line Care, Flush with 5-10 mL saline pre/post IVP, and 5 mL prior to IVPB or blood product administration. sterile water injection 1 mL(Linked Group 1) 1 mL, Injection, PRN, Starting on Tue10/12/24 at 1931, Until Tue10/25/24 at 2017, Use for drug dilution, Use to dilute and administer glucagon injection Linked Groups Order Group 1: glucagon (GLUCAGEN) injection 1 mgJump to med 1 mg, Intramuscular, PRN, Starting on Tue10/12/24 at 1931, Until Tue10/25/24 at 2017, Low blood sugar, If FSBS less than 70 mg/dl, patient cannot take orally and without IV access, If patient is without IV access, give Glucagon 1 mg Intramuscularly, insert IV and call physician. And sterile water injection 1 mLJump to med 1 mL, Injection, PRN, Starting on Tue10/12/24 at 1931, Until Mil[place] 10/25/24 at 2018, Use for drug dilution, Use to dilute and administer glucagon injection documented in this encounter Orders Medications Ordered That Nate ht Not Have Been Administered Count Last Ordered Date First Ordered Date morphine injection 1-2 mg 2 10/23/2024 oxyCODONE-acetaminophen (PER COCET) 5-325 mg per tablet 1-2 Tablet 1 10/23/2024 insulin aspart U-100 (NovoLO G) injection 1-15 Units 1 10/15/2024 dimenhyDRINATE (DRAMAMINE) 1 2.5-50 mg in sodium chloride 0.9% injection 1 10/14/2024 droPERidol (INAPSINE) injection 0.625 mg 1 10/14/2024 fentaNYL (SUBLIMAZE) injection 50 mcg 1 HYDROmorphone (DILAUDID) injection 0.25 mg 1 10/14/2024 insulin aspart U-100 (NovoLO G) injection 1-6 Units 1 10/14/2024 ondansetron (ZOFRAN) injection 4 mg 2 10/1410/12/2024 ondansetron (ZOFRAN-ODT) dis integrating tablet 8 mg 1 10/14/2024 oxyCODONE (ROXICODONE) immed iate release tablet 5 mg 3 10/14/2024 10/12/2024 promethazine (PHENERGAN) 12. 5 mg in sodium chloride 0.9% 10 mL injection 1 10/14/2024 promethazine (PHENERGAN) 6.2 5 mg in sodium chloride 0.9% 10 mL injection 1 10/14/2024 sodium chloride 0.9% IV line flush 20-50 mL 1 10/14/2024 sodium chloride 0.9% syringe 1 10/14/2024 insulin aspart U-100 (NovoLO G) injection 1-10 Units 1 10/13/2024 lactated ringers infusion 1 10/13/2024 lidocaine-PF 1% (5 mL), BUPi vacaine-PF 0.5% (5 mL) in 10 mL syringe 3 10/13/2024 acetaminophen (TYLENOL) tablet 650 mg 1 dextrose 50 % solution 25 mL 1 10/12/2024 glucagon (GLUCAGEN) injection 1 mg 1 2024 morphine (MSIR) immediate re lease tablet 15 mg 1 10/12/2024 pregabalin (LYRICA) capsule 150 mg 1 2024 sodium chloride 0.9% syringe 5-10 mL 1 09/28 sterile water injection 1 mL 1 10/12/2024 Nursing Count Last Ordered Date First Orde red Date MAYNARD CATHETER - DISCONTINUE 1 10/25/2024 MISCELLANEOUS NURSING CARE ORDER (SPECIFY) 1 10/14/2024 NURSING COMMUNICATION 1 10/13/2024 BLOOD GLUCOSE 1 10/12/2024 PHARM VTE PROPH NON-CANDIDATE 1 10/12/2024 Consult Count Last Ordered Date First Orde red Date HOME HEALTH ORDERS (FACE TO FACE ENCOUNTER) 1 10/25/2024 IP CONSULT TO PHARMACY 1 10/23/2024 IP CONSULT TO NUTRITION 1 10/22/2024 IP CONSULT TO UROLOGY 1 10/22/2024 IP CONSULT TO WOUND CARE 2 10/22/2024 IP CONSULT TO VASCULAR SURGERY 1 10/15/2024 IP CONSULT TO PODIATRY 1 10/12/2024 OT Count Last Ordered Date First Orde red Date IP CONSULT TO OCCUPATIONAL THERAPY 1 2024 PT Count Last Ordered Date First Orde red Date IP CONSULT TO PHYSICAL THERAPY 1 10/23/2024 IV Count Last Ordered Date First Orde red Date SALINE LOCK IV 1 10/12/2024 Admission Count Last Ordered Date First Orde red Date ADMIT 2 10/13/2024 10/12/2024 Transfer Count Last Ordered Date First Orde red Date TRANSFER PATIENT 1 10/22/2024 Discharge Count Last Ordered Date First Orde red Date DISCHARGE PATIENT 1 10/25/2024 ADT Update Count Last Ordered Date First Orde red Date INTENT TO DISCHARGE 1 10/24/2024 documented in this encounter Additional Health Concerns Assessment Noted Time A fall risk assessment has been complete d for the patient 04/07/2018 12:48 PM EST documented as of this encounter Care Teams Operating Room Aide Relationship Specialty Start Date End Date Beck Lazar MD PCP - General Family Medicine 12/18/22 documented as of this encounter
--- OUTSIDE RECORDS SUMMARY | 2024-10-14 08:00 | XMS_ITS | Encounter Summary ---
Author Organization [place] [address] Care Team Providers Care Grocery Team Member Name Role Phone Beck Lazar MD Primary Care Provider [phone] Reason for Visit * Reason Comments Wound Check Patient to triage wi th sores on feet that per son look infected. Patient diabetic * Auth/Cert/Inpt (Routine) Specialty Diagnoses / Procedures Referred By Donna t Referred To Contact Diagnoses Diabetic foot infection (HCC) Referral ID Status Reason Start Date Expiration Date Visits Re quested Visits Authorized [id number] 1 1 Encounter Details Date Type Department Care Team (Late st Contact Info) Description 10/14/2024 8:00 AM EDT - 10/14/2024 9:10 AM EDT Surgery EDG PERIOP [facility] [place] [address] Grupo Kruger DPM [address] [place] [address] INCISION AND DRAINAGE, FOOT Surgery Details Date/Time Status Location OR Service Patient Class Case Class Case Type Trauma Case? 10/14/2024 8:00 AM Posted EDG MAIN OR EDG Room 07 Podiatry Inpatient Urgent - 24hr Panel 1 Procedure LRB Anes Op Region Wound Class Comments INCISION AND DRAINAGE, FOOT Right Monitored Anesthesia Care Foot/Ankle Dirty or Infected INCISION, DRAINAGE and debridement right foot and leg INCISION AND DRAINAGE, LEG/THIGH Monitored Anesthesia Care Leg Dirty or Infected Surgeon Surgeon Role Service Panel Grupo Kruger DPM Primary Podiatry 1 documented in this encounter Social History Tobacco Use Types Packs/Day Years Used Date Smoking Tobacco: Every Day Cigarettes 1 40.7 Started: 1962; Last attempted to quit: 1989 Cigars Smokeless Tobacco: Never Comments:Cigarettes-quit 200 2 but still smokes cigars Alcohol Use Standard Drinks/Week Comments No 0 (1 standard drink = 0.6 oz pur e alcohol) [facility] Utilities Answer Date Recorded In the past [...] Date Recorded PHQ-2 Total Score 0 08/26/2023 [facility] - Occupational Stress [...] things needed for daily living? No 08/12/2022 [facility] IP Transportation Answer D ate Recorded In [...] Sign Reading Time Taken Comments Blood Pressure 163/62 10/14/2024 9:00 AM EDT Pulse 60 10/14/2024 9:00 AM EDT Temperature 36.3 C (97.4 F) 10/14/2024 9:00 AM EDT Respiratory Rate 12 10/14/2024 9:00 AM EDT Oxygen Saturation 90% 10/14/2024 9:00 AM EDT Inhaled Oxygen Concentration - - Weight 96.8 kg (213 lb 8 oz) 10/12/2024 11:21 PM EDT Height 182.9 cm (6') 10/12/2024 11:21 PM EDT Body Mass Index 28.96 10/12/2024 11:21 PM EDT documented in this encounter Functional Status * Drug Screening Score Answer Date of Assessment Author 0 10/12/2024 9:46 PM EDT Anne Marie Mackey RN * Question Answer Date of [...] on one occasion? 0 10/12/2024 9:46 PM EDT Chema Mackey RN How often during the [...] of your drinking? 0 10/12/2024 9:46 PM LIANNET Doreen Mackey R N Have you or someone else [...] 12/16/2016 2:35 PM Vicky Manning RN * Suicide Severity Rating Answer Date of Assessment Author No Risk 10/12/2024 9:46 PM Anne Marie Cramer RN * [place] Suicide Severity Rating Scale (Q shift for [...] Jr., MD - 10/25/2024 7:28 AM EDT [facility] Hospitalist Discharge Summary 35 minutes spent on [...] artery stent 08/23 - vascular consulted - COMMUNICATIONS AND SIGNALS SUPERVISOR ASA, lipitor, pletal - 10/22 successful ANGIO rgt Pop and Peroneal Art - 10/24 stable; d/w VSURG med mngmt. 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 COMMUNICATIONS AND SIGNALS SUPERVISOR meds include lantus 10 U qhs, metformin. [...] = will f/u as outpt CAD in [place] artery - COMMUNICATIONS AND SIGNALS SUPERVISOR ASA, lipitor, imdur - cardiac monitoring - 10/25 no angina Tobacco abuse Smokes 2ppd per family - 10/22 declines NRT ACP: THIS IS A CHANGE IN STATUS! 10/13 Patient voluntarily agrees to discuss ACP. LWill - NO. POA - NO. They and their family will work with an assistant city attorney once out of hospital (at home [...] Consulting Physician: Fahad Covarrubias MD Consulting Physician: aNman Murray MD Discharge Exam: BP 116/48 (BP [...] Your Medications These medications were sent to [facility] [address] [facility] [place] [address] Hours: Tuesday-Tuesday 8:00am - 6:30pm clopidogreL 75 mg Tab Condition at Discharge: good Disposition: Home Follow-up: Elvis Morgan MD [address] [facility] [address] [facility] [place] [id number] Schedule an appointment as soon as possible for a visit in 1 month(s) Hospital follow up Naman Murray MD [address] [facility] [address] [address] [address] [facility] [address] Call Cystoscopy as scheduled Ahsan Berger DPM [address] [place] [id number] Schedule an appointment as soon as possible [...] through Care Everywhere. * Diabetes and diet (Lao) documented in this encounter Medications at Time [...] 1 10/25/2024 12:55 PM EDT 10/25/2024 Insulin [place], Disposable, 32 gauge x [facility] Needle Use as directed to inject insulin(s) 5 times daily. 100 Each 10/25/2024 isosorbide mononitrate (IMDUR) 30 mg Oral Tablet Sustained Release 24 hr Take 30 mg by mouth every morning. Lancets [facility] Lancet 100, meter 1, strips 100 of [...] for 30 days. 60 Tablet 10/25/2024 5 oxyCODONE (ROXICODONE) 5 mg Oral Tablet Take [...] g 10/25/2024 12:55 PM EDT 10/25/2024 5 cephALEXin (KEFLEX) 500 mg Oral Capsule Take 1 Capsule by mouth every 6 hours for 8 doses. 8 Capsule 10/25/2024 12:55 PM EDT 10/25/2024 5 doxycycline hyclate (VIBRA-TABS) 100 mg Oral Tablet [...] 8 Capsule 10/25/2024 12:55 PM EDT 10/25/2024 documented in this encounter Discharge Disposition Disposition Code Departure Means Destination Comment s Home or Self Half-Way documented in this encounter Progress Notes * [...] PM EDT Discharge Medication Delivery Service DMD flight readiness technician has delivered the following medications for Lopez Lanza Sr. Miles : Rx#[id number]:CEPHALEXIN 500 MG CAPSULE-500 mg EVERY 6 HOURS SCHEDULED Rx#[id number]:DOXYCYCLINE HYCLATE 100 MG TABLET-100 mg EVERY 12 HOURS SCHEDULED Rx#[id number]:APIXABAN 5 MG TABLET-5 mg 2 TIMES DAILY Rx#[id number]:MICONAZOLE NITRATE 2 % TOPICAL POWDER-0 2 TIMES DAILY Rx#[id number]:INSULIN LISPRO (U-100) 100 UNIT/ML SUBCUTANEOUS PEN-6 Units 3 TIMES DAILY WITH MEALS Date/Time of Delivery: 10/25/2024 1:31 PM Delivered to: pt room 4417, handed to brother in room Please contact DMD flight readiness technician with any questions. Thanks! Shweta Spain CPhT * Elham Stewart RN - 10/25/2024 12:57 PM EDT 10/25/24 1254 Ongoing Discharge Planning Evaluation Completed by CC/SW Yes Discussed discharge plans with Patient/Family/Caregiver/Support Person Yes, Discussed with patient and caregiver/support person Discussed discharge plans with Care Team at [facility] Yes, with nurse in attendance;Yes, with doctor in attendance Discharge to Home Health;Home with Family Actual Discharge Plan 10/25/24: CC FINAL: Patient discharging home. Patient agreeable for . Referral sent to [facility]. Home health orders placed. Spoke to Rosa at [facility]. They are able to accept and are aware patient discharging home. Patient and son Madhu aware HH arranged. Son is providing transportation home. CC signing off. Final Note Discharge Round Completed Yes Care Coordination Discharge Ready? Yes Post Acute Provider [facility] DME Arranged at Discharge None Transportation at [...] Christianson RD,LD - 10/25/2024 12:45 PM EDT [facility] Nutrition Reassessment Evidence Supported Malnutrition Diagnosis: No malnutrition identified Nutrition Problem/Diagnosis: Nutrition Diagnosis Problem 1: Increased nutrient needs (specify) (protein) related to increased demand for energy/nutrients as evidenced by wounds. Status: Active nutrition diagnosis Nutrition Prescription: Kcals: 0515-1854 (25-30 kcal/96.8kg) K Edi Needs Based On: [...] foods to help with wound healing. Lopez Homer Aquino is a 79 y.o. male patient. [...] Stool Occurrence: 1 Stool Appearance: Type 4 Troup Stool Chart Stool Color: Brown Stool Amount: Large Biochemical Data/Medical Tests: Pertinent Meds: reviewed Pertinent Labs: reviewed Clinical Course: Clinical Course: Pt admitted for foot infection, podiatry consulted, abx started. S/p I&D 10/14,RLE angio 10/22. Will need RLE closure. 10/24: Podiatry: f/u o/p w/ WC for wound debridement & skin grafting: Urology s/o * Kimberly Pavon, PharmD - 10/24/2024 9:47 PM EDT Pharmacy [...] ABG Labs:No results for input(s): PHART , GBG0XMI , EBX7LOG , ANIONGAP in the last 72 hours. [...] type 2 in nonobese (HCC) CAD in [place] artery MEDICAL DECISION MAKING Assessment: LE PAD Plan: patient status post revasc. Podiatry not doing further procedure. Discussed with Dr. Wyendant. OK for DC with AC and AP. Continue Hep gtt. Transition to eliquis. This note was completed using voice recognition technology. 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 COMMUNICATIONS AND SIGNALS SUPERVISOR meds include lantus 10 U qhs, metformin. [...] = will f/u as outpt CAD in [place] artery - COMMUNICATIONS AND SIGNALS SUPERVISOR ASA, lipitor, imdur - cardiac monitoring - 10/24 no angina Tobacco abuse Smokes 2ppd per family - 10/22 declines NRT ACP: THIS IS A CHANGE IN STATUS! 10/13 Patient voluntarily agrees to discuss ACP. LWill - NO. POA - NO. They and their family will work with an assistant city attorney once out of hospital (at home [...] with a continuous heparin gtt which requires 20/09 continuous monitoring and routine laboratory data for [...] MD 10/24/2024 5:38 PM * Kimberly Pavon, PharmD - 10/24/2024 3:53 PM EDT Pharmacy Consult Note: Heparin S: Lopez Martincarmenza Aquino is a(n) 79 y.o. male with [...] receiving unfractionatedheparin therapy. Kimberly Pavon PharmD * Robert Moyer APRN - 10/24/2024 3:43 PM EDT Images from the original note were not included. Name: Lopez Lanza Miles Date of Admission: 10/12/2024 Admitting Diagnosis: Cellulitis [...] Berger SUBJECTIVE: Patient seen at bedside in [facility] in follow up for right foot [...] was seen in coordination with the physician business support assistant/nurse practitioner. Given the severity of the patient's underlying PAD his wounds are not amenable to primary repair due to atrophic changes to his soft tissue envelope. Patient is otherwise okay for discharge from our standpoint only. He will follow-up with me i in the [place] wound care center to undergo debridement and possible skin graft applications. Ahsan Berger DPM * Miles Aguirre, OT - 10/24/2024 12:13 PM EDT [...] Bladder problem, CAD (coronary artery disease), Cancer ([facility]), Diabetes mellitus ([facility]), PERLA (dyspnea on exertion), Former smoker (01/07/2013), Full dentures, H/O hematuria,Heart murmur, Heartburn, Hypertension, Major depressive disorder, single episode, severe (HCC) (08/29/2017), Neuromuscular disorder ([facility]), Osteoarthritis, PAD (peripheral artery disease), Peripheral vascular [...] Dominance Right Gross Grasp Functional Coordination Functional Landing Worker Strength ~symmetrical Coord/Sensation Assessed Impaired Gross Motor [...] go home. He would benefit from continued 24/7 Sup and HH OT. Goals Patient and/or [...] patient status and discharge planning * Jacqueline Jordan, LISA - 10/24/2024 8:43 AM EDT Images from the original note were not included. UROLOGY PROGRESS NOTE CSN:[id number] NAME:Lopez Lanza Sr. Miles :1945 Subjective: Sleeping in bed Active Hospital [...] type 2 in nonobese (HCC) CAD in fond [place] artery Vitals: Vitals: 10/24/24 0318 10/24/24 0410 [...] evaluation of the kidneys and bladder with inside sales account representative images and patient financial specialist notes sent to PACS for radiologist review. [...] type 2 in nonobese (HCC) CAD in fond [place] artery Impression/Plan: Gross Hematuria Recurrent bladder cancer [...] GONZALEZ's Assessment and Plan. * Jaki Ford, Veneer Grader - 10/24/2024 7:53 AM EDT S: Lopez Aquino is a(n) 79 y.o. [...] hours while on heparin infusion. Jaki Ford, Veneer Grader Cosigned by Adán Dela Cruz, PharmD at 10/24/2024 3:18 PM EDT * [...] for goal (anti-Xa 0.3 - 0.7 unit/mL). Atul StaffordD * Elham Stewart RN - 10/23/2024 4:50 PM EDT 10/23/24 1648 Ongoing Discharge Planning Evaluation Completed by CC/SW Yes Discussed discharge plans with Patient/Family/Caregiver/Support Person Yes, Discussed with patient and caregiver/support person Discussed discharge plans with Care Team at [facility] Yes, with nurse in attendance;Yes, with doctor in attendance Repisodic List provided Yes, Provided information, demonstrated how to access quality and resource utilization data for post acute provider and offered assistance and [facility] Financial Disclosure completed Actual Discharge Plan 10/23/24: [...] artery stent 08/23 - vascular consulted - COMMUNICATIONS AND SIGNALS SUPERVISOR ASA, lipitor, pletal - 10/22 successful ANGIO [...] - 10/23 stable Essential hypertension - continue COMMUNICATIONS AND SIGNALS SUPERVISOR norvasc, imdur, lisinopril, metoprolol - monitor and adjust as needed - 10/23 good # 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 COMMUNICATIONS AND SIGNALS SUPERVISOR meds include lantus 10 U qhs, metformin. [...] uropathy or other acute finding. CAD in [place] artery - COMMUNICATIONS AND SIGNALS SUPERVISOR ASA, lipitor, imdur - cardiac monitoring - 10/23 no angina Tobacco abuse Smokes 2ppd per family - 10/22 declines NRT ACP: THIS IS A CHANGE IN STATUS! 10/13 Patient voluntarily agrees to discuss ACP. LWinocente - NO. POA - NO. They and their family will work with an assistant city attorney once out of hospital (at home [...] Ludwig RD,LD - 10/23/2024 2:42 PM EDT [facility] Nutrition Initial Assessment Evidence Supported Malnutrition Diagnosis: No malnutrition identified Nutrition Problem/Diagnosis: Nutrition Diagnosis Problem 1: Increased nutrient needs (specify) (protein) related to increased demand for energy/nutrients as evidenced by wounds. Status: New nutrition diagnosis Nutrition Prescription: Kcals: 7222-2390 (25-30 kcal/96.8kg) K Edi Needs Based On: [...] foods to help with wound healing. Lopez Homer Aquino is a 79 y.o. male patient. [...] Drain Duration External Urinary Catheter Male Purewick 2 days I/O last 3 completed shifts: In: - Out: 1900 [Urine:1900] Abdomen: Abdominal/GI Bowel Sounds (All Quadrants): Active, Audible Abdominal palpation: Soft Nausea: No When was last BM? (Date): 10/21/24 Stool Assessment: Stool Occurrence: 1 Stool Appearance: Normal for Patient Biochemical Data/Medical Tests: Pertinent Meds: novolog, lantus Pertinent Labs: [facility] [id number] Pertinent Medical History: DM (A1C 7.9% [...] this time. Thanks! RIGHT HEEL * Debbie Ott PT - 10/23/2024 1:04 PM EDT 10/23/24 [...] Bladder problem, CAD (coronary artery disease), Cancer ([facility]), Diabetes mellitus ([facility]), PERLA (dyspnea on exertion), Former smoker (01/07/2013), Full dentures, H/O hematuria,Heart murmur, Heartburn, Hypertension, Major depressive disorder, single episode, severe (HCC) (08/29/2017), Neuromuscular disorder ([facility]), Osteoarthritis, PAD (peripheral artery disease), Peripheral vascular [...] information HHPT Time In / Time Out 9358-8756 IP PT Evaluation Minutes 10 IP PT Treatment Minutes 15 The total time spent caring for this patient included but was not limited to medical record review;hands-on treatment;communication and education with patient and/or family/caregiver;clinical judgement necessary for treatment planning for next session;communication with nursing and/or care coordinat ion/social work regarding patient status and discharge planning * Robert Moyer, COMMUNITY LIVING INSTRUCTOR - 10/23/2024 12:55 PM EDT Images from [...] Berger SUBJECTIVE: Patient seen at bedside in [facility] in follow up for right foot [...] original note were not included. Patient Name:Lopez Lanza Sr. Miles : 1945 Admitting Diagnosis: Cellulitis and abscess [...] Head: NC/AT. Resp: Effort normal. Vascular: Left JET DYEING MACHINE TENDER access site soft, no drainage or erythema. [...] type 2 in nonobese (HCC) CAD in fond [place] artery Assessment PAD with cellulitis and abscess [...] I reviewed the findings of the physician business support assistant/nurse practitioner and discussed the case in detail. Below is a summary of my pertinent independent evaluation and findings inaddition to the assessment and plan formulated by the physician business support assistant/nurse practitioner. Patient seen and examined. No new issue. Lower extremities warm. No hematoma. Appreciate urology input. Will initiate anticoagulation along with antiplatelet therapy. Okay to proceed with surgery with podiatry. ELVIS MORGAN MD, FACS This note was completed using voice recognition technology. Despite the junior copywriter's best efforts to proof read, it may still contain unintended errors. Please call with questions. * Gema Sousa RN - 10/22/2024 1:47 PM EDT Pt with poor short term memory, insight, and judgement. Pt not not able to make medical decisions independently. Pt and sonLopez agreeable to angiogram this am. Consent signed by Mr. Lanza's sonLopez. Gema Sousa, KERRY * Igor Lynn MD - 10/22/2024 9:44 [...] consulted - NPO - angiogram today - COMMUNICATIONS AND SIGNALS SUPERVISOR ASA, lipitor, pletal - arterial studies as [...] Problem(s): Essential hypertension Remains controlled - continue COMMUNICATIONS AND SIGNALS SUPERVISOR norvasc, imdur, lisinopril, metoprolol - monitor and adjust as needed * Igor Lynn MD - 10/22/2024 9:44 AM EDTAssociated Problem(s): Diabetes mellitus type 2 in nonobese (HCC) Last A1c 10.2 in 07/2023. COMMUNICATIONS AND SIGNALS SUPERVISOR meds include lantus 10 U qhs, metformin. [...] 10/22/2024 9:44 AM EDTAssociated Problem(s): CAD in fond [place] artery - COMMUNICATIONS AND SIGNALS SUPERVISOR ASA, lipitor, imdur - cardiac monitoring * Igor Lynn MD - 10/22/2024 9:44 AM EDTAssociated Problem(s): Major depressive disorder, single episode, severe (HCC) Not on meds COMMUNICATIONS AND SIGNALS SUPERVISOR * Igor Lynn MD - 10/22/2024 9:44 AM EDTAssociated Problem(s): Diabetic polyneuropathy associated with type 2 diabetes mellitus (HCC) - COMMUNICATIONS AND SIGNALS SUPERVISOR lyrica * Igor Lynn MD - 10/22/2024 [...] consulted - NPO - angiogram today - COMMUNICATIONS AND SIGNALS SUPERVISOR ASA, lipitor, pletal - arterial studies as above Minor neurocognitive disorder Poor short term memory, insight, judgement. Does not recall having wound on his foot, having surgery. Not appropriate to be making medical decisions independently. - will need to contact family for decision making - discussed with Mr. Lanza's son Lopez - discussed with podiatry, vascular Essential hypertension Remains controlled - continue COMMUNICATIONS AND SIGNALS SUPERVISOR norvasc, imdur, lisinopril, metoprolol - monitor and adjust as needed Diabetes mellitus type 2 in nonobese (HCC) Last A1c 10.2 in 07/2023. COMMUNICATIONS AND SIGNALS SUPERVISOR meds include lantus 10 U qhs, metformin. [...] cancer - outpatient follow up CAD in fond [place] artery - COMMUNICATIONS AND SIGNALS SUPERVISOR ASA, lipitor, imdur - cardiac monitoring Major depressive disorder, single episode, severe (HCC) Not on meds COMMUNICATIONS AND SIGNALS SUPERVISOR Diabetic polyneuropathy associated with type 2 diabetes mellitus (HCC) - COMMUNICATIONS AND SIGNALS SUPERVISOR lyrica DNR (do not resuscitate) - orders [...] type 2 in nonobese (HCC) CAD in [place] artery Subjective: Mr. Lanza is resting in bed. His son is at bedside. They're working on a [employer]. He denies any concerns. Objective: BP 174/52 [...] NPO at midnight - angiogram tomorrow? - COMMUNICATIONS AND SIGNALS SUPERVISOR ASA, lipitor, pletal - arterial studies as [...] Problem(s): Essential hypertension Remains controlled - continue COMMUNICATIONS AND SIGNALS SUPERVISOR norvasc, imdur, lisinopril, metoprolol - monitor and adjust as needed * Igor Lynn MD - 10/21/2024 12:28 PM EDTAssociated Problem(s): Diabetes mellitus type 2 in nonobese (HCC) Last A1c 10.2 in 07/2023. COMMUNICATIONS AND SIGNALS SUPERVISOR meds include lantus 10 U qhs, metformin. [...] 10/21/2024 12:28 PM EDTAssociated Problem(s): CAD in [place] artery - COMMUNICATIONS AND SIGNALS SUPERVISOR ASA, lipitor, imdur - cardiac monitoring * Igor Lynn MD - 10/21/2024 12:28 PM EDTAssociated Problem(s): Major depressive disorder, single episode, severe (HCC) Not on meds COMMUNICATIONS AND SIGNALS SUPERVISOR * Igor Lynn MD - 10/21/2024 12:28 PM EDTAssociated Problem(s): Diabetic polyneuropathy associated with type 2 diabetes mellitus (HCC) - COMMUNICATIONS AND SIGNALS SUPERVISOR lyrica * Igor Lynn MD - 10/21/2024 [...] NPO at midnight - angiogram tomorrow? - COMMUNICATIONS AND SIGNALS SUPERVISOR ASA, lipitor, pletal - arterial studies as above Minor neurocognitive disorder Poor short term memory, insight, judgement. Does not recall having wound on his foot, having surgery. Not appropriate to be making medical decisions independently. - will need to contact family for decision making - discussed with Mr. Lanza's son Lopez - discussed with podiatry, vascular Essential hypertension Remains controlled - continue COMMUNICATIONS AND SIGNALS SUPERVISOR norvasc, imdur, lisinopril, metoprolol - monitor and adjust as needed Diabetes mellitus type 2 in nonobese (HCC) Last A1c 10.2 in 07/2023. COMMUNICATIONS AND SIGNALS SUPERVISOR meds include lantus 10 U qhs, metformin. [...] cancer - outpatient follow up CAD in [place] artery - COMMUNICATIONS AND SIGNALS SUPERVISOR ASA, lipitor, imdur - cardiac monitoring Major depressive disorder, single episode, severe (HCC) Not on meds COMMUNICATIONS AND SIGNALS SUPERVISOR Diabetic polyneuropathy associated with type 2 diabetes mellitus (HCC) - COMMUNICATIONS AND SIGNALS SUPERVISOR lyrica DNR (do not resuscitate) - orders [...] type 2 in nonobese (HCC) CAD in [place] artery Subjective: Mr. Lanza has his son [...] artery stent 08/23 - vascular consulted - COMMUNICATIONS AND SIGNALS SUPERVISOR ASA, lipitor, pletal - arterial studies as [...] Problem(s): Essential hypertension Remains controlled - continue COMMUNICATIONS AND SIGNALS SUPERVISOR norvasc, imdur, lisinopril, metoprolol - monitor and adjust as needed * Igor Lynn MD - 10/20/2024 12:10 PM EDTAssociated Problem(s): Diabetes mellitus type 2 in nonobese (HCC) Last A1c 10.2 in 07/2023. COMMUNICATIONS AND SIGNALS SUPERVISOR meds include lantus 10 U qhs, metformin. [...] 10/20/2024 12:10 PM EDTAssociated Problem(s): CAD in fond [place] artery - COMMUNICATIONS AND SIGNALS SUPERVISOR ASA, lipitor, imdur - cardiac monitoring * Igor Lynn MD - 10/20/2024 12:10 PM EDTAssociated Problem(s): Major depressive disorder, single episode, severe (HCC) Not on meds COMMUNICATIONS AND SIGNALS SUPERVISOR * Igor Lynn MD - 10/20/2024 12:10 PM EDTAssociated Problem(s): Diabetic polyneuropathy associated with type 2 diabetes mellitus (HCC) - COMMUNICATIONS AND SIGNALS SUPERVISOR lyrica * Igor Lynn MD - 10/20/2024 [...] artery stent 08/23 - vascular consulted - COMMUNICATIONS AND SIGNALS SUPERVISOR ASA, lipitor, pletal - arterial studies as [...] monitor Essential hypertension Remains controlled - continue COMMUNICATIONS AND SIGNALS SUPERVISOR norvasc, imdur, lisinopril, metoprolol - monitor and adjust as needed Diabetes mellitus type 2 in nonobese (HCC) Last A1c 10.2 in 07/2023. COMMUNICATIONS AND SIGNALS SUPERVISOR meds include lantus 10 U qhs, metformin. [...] cancer - outpatient follow up CAD in [place] artery - COMMUNICATIONS AND SIGNALS SUPERVISOR ASA, lipitor, imdur - cardiac monitoring Major depressive disorder, single episode, severe (HCC) Not on meds COMMUNICATIONS AND SIGNALS SUPERVISOR Diabetic polyneuropathy associated with type 2 diabetes mellitus (HCC) - COMMUNICATIONS AND SIGNALS SUPERVISOR lyrica DNR (do not resuscitate) - orders [...] type 2 in nonobese (HCC) CAD in [place] artery Subjective: Mr. Lanza is resting comfortably. [...] MD 10/20/2024 12:08 PM * Robert Moyer, COMMUNITY LIVING INSTRUCTOR - 10/19/2024 7:58 PM EDT Images from [...] Berger SUBJECTIVE: Patient seen at bedside in [facility] in follow up for right foot [...] permission allowing today's photographs - using the Flinto melissa. Laboratory Lab Results Component Value Date [...] was seen in coordination with the physician business support assistant/nurse practitioner. Patient status post I&D of the [...] our standpoint once optimized. Will follow. Ahsan Berger DPM, FACFAS 10/19/2024 9:01 PM * Valarie Kemp MSW - 10/19/2024 1:05 PM EDT 10/19/24 1304 Ongoing Discharge Planning Evaluation Actual Discharge Plan 10/19/2024 UPDATE: Chart reviewed. Note pt is alert [...] - closure pending vascular intervention - continue kerandolph doxy * Igor Lynn MD - 10/19/2024 [...] - closure pending vascular intervention - continue katharineflex, doxy * Igor Lynn MD - 10/19/2024 [...] type 2 in nonobese (HCC) CAD in [place] artery Assessment: PAD with bilateral diabetic foot [...] I reviewed the findings of the physician business support assistant/nurse practitioner and discussed the case in detail. Below is a summary of my pertinent independent evaluation and findings inaddition to the assessment and plan formulated by the physician business support assistant/nurse practitioner. Patient seen and examined. No new issues. R LE ulceration unchanged. Patient continue to refuse angiogram. Family reports possible dementia. Will hold off on angiogram for now. If wound not heal willrevisit the issue. Continue Hep gtt. ELVIS MORGAN MD, FACS This note was completed using voice recognition technology. Despite the junior copywriter's best efforts to proof read, it may still contain unintended errors. Please call with questions. * Igor Lynn MD - 10/19/2024 10:07 AM EDTAssociated Problem(s): PAD (peripheral artery disease) SP left common iliac artery stent 08/23 - vascular consulted - angiogram Tuesday as above - COMMUNICATIONS AND SIGNALS SUPERVISOR ASA, lipitor, pletal - arterial studies as above * Igor Lynn MD - 10/19/2024 10:07 AM EDTAssociated Problem(s): Hyperkalemia (Resolved 10/20/2024) K 5.4 at admit. resolved - continue to monitor * Igor Lynn MD - 10/19/2024 10:07 AM EDTAssociated Problem(s): Essential hypertension Remains controlled - continue COMMUNICATIONS AND SIGNALS SUPERVISOR norvasc, imdur, lisinopril, metoprolol - monitor and adjust as needed * Igor Lynn MD - 10/19/2024 10:07 AM EDTAssociated Problem(s): Diabetes mellitus type 2 in nonobese (HCC) Last A1c 10.2 in 07/2023. COMMUNICATIONS AND SIGNALS SUPERVISOR meds include lantus 10 U qhs, metformin. [...] 10/19/2024 10:07 AM EDTAssociated Problem(s): CAD in [place] artery - COMMUNICATIONS AND SIGNALS SUPERVISOR ASA, lipitor, imdur - cardiac monitoring * Igor Lynn MD - 10/19/2024 10:07 AM EDTAssociated Problem(s): Major depressive disorder, single episode, severe (HCC) Not on meds COMMUNICATIONS AND SIGNALS SUPERVISOR * Igor Lynn MD - 10/19/2024 10:07 AM EDTAssociated Problem(s): Diabetic polyneuropathy associated with type 2 diabetes mellitus (HCC) - COMMUNICATIONS AND SIGNALS SUPERVISOR lyrica * Igor Lynn MD - 10/19/2024 [...] consulted - angiogram Tuesday as above - COMMUNICATIONS AND SIGNALS SUPERVISOR ASA, lipitor, pletal - arterial studies as [...] monitor Essential hypertension Remains controlled - continue COMMUNICATIONS AND SIGNALS SUPERVISOR norvasc, imdur, lisinopril, metoprolol - monitor and adjust as needed Diabetes mellitus type 2 in nonobese (HCC) Last A1c 10.2 in 07/2023. COMMUNICATIONS AND SIGNALS SUPERVISOR meds include lantus 10 U qhs, metformin. [...] cancer - outpatient follow up CAD in [place] artery - COMMUNICATIONS AND SIGNALS SUPERVISOR ASA, lipitor, imdur - cardiac monitoring Major depressive disorder, single episode, severe (HCC) Not on meds COMMUNICATIONS AND SIGNALS SUPERVISOR Diabetic polyneuropathy associated with type 2 diabetes mellitus (HCC) - COMMUNICATIONS AND SIGNALS SUPERVISOR lyrica DNR (do not resuscitate) - orders [...] type 2 in nonobese (HCC) CAD in [place] artery Subjective: Mr. Lanza remembers speaking to me yesterday, but not what we spoke about. Does not remember seeingDr. Stephensu this am. When asked about the wound [...] consulted - angiogram Tuesday as above - COMMUNICATIONS AND SIGNALS SUPERVISOR ASA, lipitor, pletal - arterial studies as above * Igor Lynn MD - 10/18/2024 3:48 PM EDTAssociated Problem(s): Hyperkalemia (Resolved 10/20/2024) K 5.4 at admit. resolved - continue to monitor * Igor Lynn MD - 10/18/2024 3:48 PM EDTAssociated Problem(s): Essential hypertension Remains controlled - continue COMMUNICATIONS AND SIGNALS SUPERVISOR norvasc, imdur, lisinopril, metoprolol - monitor and adjust as needed * Igor Lynn MD - 10/18/2024 3:48 PM EDTAssociated Problem(s): Diabetes mellitus type 2 in nonobese (HCC) Last A1c 10.2 in 07/2023. COMMUNICATIONS AND SIGNALS SUPERVISOR meds include lantus 10 U qhs, metformin. [...] 10/18/2024 3:48 PM EDTAssociated Problem(s): CAD in [place] artery - COMMUNICATIONS AND SIGNALS SUPERVISOR ASA, lipitor, imdur - cardiac monitoring * Igor Lynn MD - 10/18/2024 3:48 PM EDTAssociated Problem(s): Major depressive disorder, single episode, severe (HCC) Not on meds COMMUNICATIONS AND SIGNALS SUPERVISOR * Igor Lynn MD - 10/18/2024 3:48 PM EDTAssociated Problem(s): Diabetic polyneuropathy associated with type 2 diabetes mellitus (HCC) - COMMUNICATIONS AND SIGNALS SUPERVISOR lyrica * Igor Lynn MD - 10/18/2024 [...] consulted - angiogram Tuesday as above - COMMUNICATIONS AND SIGNALS SUPERVISOR ASA, lipitor, pletal - arterial studies as above Hyperkalemia K 5.4 at admit. resolved - continue to monitor Essential hypertension Remains controlled - continue COMMUNICATIONS AND SIGNALS SUPERVISOR norvasc, imdur, lisinopril, metoprolol - monitor and adjust as needed Diabetes mellitus type 2 in nonobese (HCC) Last A1c 10.2 in 07/2023. COMMUNICATIONS AND SIGNALS SUPERVISOR meds include lantus 10 U qhs, metformin. [...] cancer - outpatient follow up CAD in [place] artery - COMMUNICATIONS AND SIGNALS SUPERVISOR ASA, lipitor, imdur - cardiac monitoring Major depressive disorder, single episode, severe (HCC) Not on meds COMMUNICATIONS AND SIGNALS SUPERVISOR Diabetic polyneuropathy associated with type 2 diabetes mellitus (HCC) - COMMUNICATIONS AND SIGNALS SUPERVISOR lyrica DNR (do not resuscitate) - orders [...] type 2 in nonobese (HCC) CAD in [place] artery Subjective: Mr. Lanza is up in [...] left common iliac artery stent 08/23 - COMMUNICATIONS AND SIGNALS SUPERVISOR ASA, lipitor, pletal - arterial studies as above * Igor Lynn MD - 10/17/2024 12:11 PM EDTAssociated Problem(s): Hyperkalemia (Resolved 10/20/2024) K 5.4 at admit. resolved - continue to monitor * Igor Lynn MD - 10/17/2024 12:11 PM EDTAssociated Problem(s): Essential hypertension Remains controlled - continue COMMUNICATIONS AND SIGNALS SUPERVISOR norvasc, imdur, lisinopril, metoprolol - monitor and adjust as needed * Igor Lynn MD - 10/17/2024 12:11 PM EDTAssociated Problem(s): Diabetes mellitus type 2 in nonobese (HCC) Last A1c 10.2 in 07/2023. COMMUNICATIONS AND SIGNALS SUPERVISOR meds include lantus 10 U qhs, metformin. [...] 10/17/2024 12:11 PM EDTAssociated Problem(s): CAD in fond [place] artery - COMMUNICATIONS AND SIGNALS SUPERVISOR ASA, lipitor, imdur - cardiac monitoring * Igor Lynn MD - 10/17/2024 12:11 PM EDTAssociated Problem(s): Major depressive disorder, single episode, severe (HCC) Not on meds COMMUNICATIONS AND SIGNALS SUPERVISOR * Igor Lynn MD - 10/17/2024 12:11 PM EDTAssociated Problem(s): Diabetic polyneuropathy associated with type 2 diabetes mellitus (HCC) - COMMUNICATIONS AND SIGNALS SUPERVISOR lyrica * Igor Lynn MD - 10/17/2024 12:11 PM EDTAssociated Problem(s): DNR (do not resuscitate) - orders in place * Igor Lynn MD - 10/17/2024 12:07 PM EDT PROGRESS NOTE Assessment/Plan: Assessment & Plan Cellulitis and abscess of foot, except toes 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 2 diabetes mellitus, 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 necrosis (HCC) Diabetic leg ulcer ([facility]) WBC wnl at admit. ESR wnl. CRP [...] left common iliac artery stent 08/23 - COMMUNICATIONS AND SIGNALS SUPERVISOR ASA, lipitor, pletal - arterial studies as above Hyperkalemia K 5.4 at admit. resolved - continue to monitor Essential hypertension Remains controlled - continue COMMUNICATIONS AND SIGNALS SUPERVISOR norvasc, imdur, lisinopril, metoprolol - monitor and adjust as needed Diabetes mellitus type 2 in nonobese (HCC) Last A1c 10.2 in 07/2023. COMMUNICATIONS AND SIGNALS SUPERVISOR meds include lantus 10 U qhs, metformin. [...] cancer - outpatient follow up CAD in [place] artery - COMMUNICATIONS AND SIGNALS SUPERVISOR ASA, lipitor, imdur - cardiac monitoring Major depressive disorder, single episode, severe (HCC) Not on meds COMMUNICATIONS AND SIGNALS SUPERVISOR Diabetic polyneuropathy associated with type 2 diabetes mellitus (HCC) - COMMUNICATIONS AND SIGNALS SUPERVISOR lyrica DNR (do not resuscitate) - orders [...] type 2 in nonobese (HCC) CAD in [place] artery Subjective: Mr. Lanza is up in [...] Problem(s): Essential hypertension Controlled overall - continue COMMUNICATIONS AND SIGNALS SUPERVISOR norvasc, imdur, lisinopril, metoprolol - monitor and adjust as needed * Igor Lynn MD - 10/17/2024 12:07 PM EDTAssociated Problem(s): PAD (peripheral artery disease) SP left common iliac artery stent 08/23 - COMMUNICATIONS AND SIGNALS SUPERVISOR ASA, lipitor, pletal - arterial studies pending [...] 10/17/2024 12:07 PM EDTAssociated Problem(s): CAD in [place] artery - COMMUNICATIONS AND SIGNALS SUPERVISOR ASA, lipitor, imdur - cardiac monitoring * Igor Lynn MD - 10/17/2024 12:07 PM EDTAssociated Problem(s): Major depressive disorder, single episode, severe (HCC) Not on meds COMMUNICATIONS AND SIGNALS SUPERVISOR * Igor Lynn MD - 10/17/2024 12:07 PM EDTAssociated Problem(s): Diabetic polyneuropathy associated with type 2 diabetes mellitus (HCC) - COMMUNICATIONS AND SIGNALS SUPERVISOR lyrica * Igor Lynn MD - 10/17/2024 12:07 PM EDTAssociated Problem(s): DNR (do not resuscitate) - orders in place * Igor Lynn MD - 10/17/2024 12:07 PM EDTAssociated Problem(s): Hyperkalemia (Resolved 10/20/2024) K 5.4 at admit. resolved - continue to monitor * Brennen Quiroz, PharmD - 10/17/2024 11:49 AM EDT Pharmacy Consult - Vancomycin S: Lopez Coronel Myla Aquino is a(n) 79 y.o. male with [...] this time. Please re-consult Pharmacy if necessary. Brennen Gale PharmD * Elvis Morgan MD - 10/17/2024 [...] type 2 in nonobese (HCC) CAD in fond [place] artery Assessment: PAD with bilateral diabetic foot [...] I reviewed the findings of the physician business support assistant/nurse practitioner and discussed the case in detail. Below is a summary of my pertinent independent evaluation and findings inaddition to the assessment and plan formulated by the physician business support assistant/nurse practitioner. Patient seen and examined. No new issue. Still does not want to have angiogram. Continue local wound care. Hope this will heal. ELVIS MORGAN MD, FACS This note was completed using voice recognition technology. Despite the junior copywriter's best efforts to proof read, it may still contain unintended errors. Please call with questions. * Elvis Morgan MD - 10/16/2024 9:28 PM EDT Please refer to consult dated 10/15/2024 Elvis Morgan MD * Robert Moyer APRN - 10/16/2024 5:24 PM EDT Images from the original note were not included. Name: Lopez Lanza Sr. Miles Date of Admission: 10/12/2024 Admitting Diagnosis: Cellulitis [...] Kruger SUBJECTIVE: Patient seen at bedside in [facility] in follow up for right foot [...] permission allowing today's photographs - using the Flinto melissa. Laboratory Lab Results Component Value Date [...] otherwise stated as addendum. Dr. Ash Kruger [facility] * Valarie Kemp, NUMERICAL CONTROL OPERATOR - 10/16/2024 4:30 PM EDT 10/16/24 1626 [...] dc planning process Caregiver Name Lopez Lanza JR. Caregiver Does patient need punch finisher? No Activities of Daily Living Prior to Admission Needs assistance with ADLS;Needs assistance with Homemaking;Needs assistance with mobility DME Used at Home Wheelchair Wheelchair type Power Patient's Living Arrangments Prior to Admission? Private Residence With Other(s) Private Residence With Other(s) Children Support Systems Children;Family Members;Friends/Neighbors;Buddhism/[place] Is PCP listed on facesheet correct? [...] Discussed discharge plans with Care Team at [facility] Yes, with nurse in attendance;Yes, with doctor in attendance Patient's goals for recovery Return to Prior Level of Functioning Actual Discharge Plan 10/16/2024 KIM INITIAL ASSESSMENT: Chart reviewed. Note pt is alert and oriented x3. KIM met with pt at bedside and introduced self and role. Pt needs some assistance with ADLS, homemaking, and mobility at D/C. Pt reports utilizing only power W/C at home. Pt reports that he lives with his sons in a private residence with no stairs. Pt denies any HH or home O2 needs prior to admission. PCP Dr Lazar. Pharmacy [place], [place]. Pt denies any financial or safety concerns at this time. Pt reports that he seldom drives anymore and usually his son, Madhu, transports him where he needs to go. Pt identifies his son, Lopez DIAMOND, as D/C planning support person. Pt reports no D/C needs or preferences at this time. SDOH screen complete. SW FOLLOWING. * Brennen Quiroz RP - 10/16/2024 3:46 PM EDT Pharmacy Consult [...] LACTA 2.6* 2.0* 1.6 Recent Labs 10/12/24 2112 CRP 28.69* I/O last 3 completed shifts: [...] nonobese (HCC) Last A1c 10.2 in 07/2023. COMMUNICATIONS AND SIGNALS SUPERVISOR meds include lantus 10 U qhs, metformin. [...] left common iliac artery stent 08/23 - COMMUNICATIONS AND SIGNALS SUPERVISOR ASA, lipitor, pletal - arterial studies pending Hyperkalemia K 5.4 at admit. resolved - continue to monitor Essential hypertension Controlled overall - continue COMMUNICATIONS AND SIGNALS SUPERVISOR norvasc, imdur, lisinopril, metoprolol - monitor and adjust as needed Diabetes mellitus type 2 in nonobese (HCC) Last A1c 10.2 in 07/2023. COMMUNICATIONS AND SIGNALS SUPERVISOR meds include lantus 10 U qhs, metformin. [...] cancer - outpatient follow up CAD in [place] artery - COMMUNICATIONS AND SIGNALS SUPERVISOR ASA, lipitor, imdur - cardiac monitoring Major depressive disorder, single episode, severe (HCC) Not on meds COMMUNICATIONS AND SIGNALS SUPERVISOR Diabetic polyneuropathy associated with type 2 diabetes mellitus (HCC) - COMMUNICATIONS AND SIGNALS SUPERVISOR lyrica DNR (do not resuscitate) - orders [...] type 2 in nonobese (HCC) CAD in [place] artery Subjective: Mr. Lanza is up sitting [...] of concern. Thank you. * Brennen Quiroz [facility] - 10/15/2024 3:21 PM EDT Pharmacy Consult - Vancomycin S: Lopez Lanza SrMaru Aquino is a(n) 79 y.o. male with [...] LACTA 2.6* 2.0* 1.6 Recent Labs 10/12/24 2112 CRP 28.69* I/O last 3 completed shifts: [...] renal function, efficacy, and signs of toxicity. Shahla, Brennen Quiroz PharmD * Ahsan Parra Jr., [...] 0.55 (L) 10/15/2024 Coronary artery disease involving [place] coronary artery of [place] heart without angina pectoris - Stents - [...] and their family will work with an assistant city attorney once out of hospital (at home [...] visit 10/15/24 Visited With Patient Visited By Archives Director Reason for Visit Spiritual, emotional or social support Patient Assessment Patient Appears Calm Patient Sabianism at Registration Druze Patient Sabianism Upon Assessment Druze Spiritual Strengths and Coping Resources Meaningful relationship or connection with God;Sense of security from belief system;Spends time in prayer/spiritual practices;Support system Spiritual and Emotional Concerns Coping with chronic illness Patient Spiritual Wellbeing Appears to be coping adequately Interventions with Patient Relationship Building Interventions Cultivated a relationship of care and support;Listened empathetically Confucianist Interventions Prayer with patient or family Exploration Interventions Provided caring and supportive presence Outcomes Expressed Outcomes Appreciative of visit;Appreciative of prayer/ritual Care Plan Plan for Follow-Up Archives Director(s) will continue to follow throughout admission VERONIQUE Arredondo Archives Director, Pastoral and Spiritual Care For non-urgent requests, please place a Pastoral Care consult in [facility]. For all urgent matters, please send an urgent [facility] Secure Chat to the Pastoral Care group at your location. Between 11pm and 7am, please use On-Call Finder to send an [facility] Secure Chat to the on-call comic illustrator. Pastoral Care office phone numbers: EDG/COV/GRT [phone], MICHELE [phone], FTT [phone], DBN [phone] * Ahsan Parra Jr., MD - 10/14/2024 [...] 0.57 (L) 10/14/2024 Coronary artery disease involving [place] coronary artery of [place] heart without angina pectoris - Stents - [...] ACP: THIS IS A CHANGE IN STATUS! 8/16 Patient voluntarily agrees to discuss ACP. LWill - NO. POA - NO. They and their family will work with an assistant city attorney once out of hospital (at home [...] Jr., MD 10/14/2024 1:20 PM * Brook Villlaba, PharmD - 10/14/2024 10:15 AM EDT Pharmacy Consult- Vancomycin S: Lopez Lanza SrMaru Aquino is a(n) 79 y.o. male with [...] of 0.57 mg/dL (L)). Recent Labs 10/12/24 181 PROCLCTNIN 0.11 Recent Labs 10/12/242 10/12/24 2248 10/13/24 0036 LACTA 2.6* 2.0* [...] SCr of 0.75 mg/dL). Recent Labs 10/12/24 1810 PROCLCTNIN 0.11 [...] CREATININE 0.97 10/12/2024 Coronary artery disease involving [place] coronary artery of [place] heart without angina pectoris - Stents - [...] and their family will work with an assistant city attorney once out of hospital (at home [...] PM EDTAssociated Problem(s): Coronary artery disease involving [place] coronary artery of [place] heart without angina pectoris (Resolved 10/13/2024) Stents [...] bladder cancer Follow-up urology * Nilda Watt, Career Consultant - 10/12/2024 8:19 PM EDTSummary: Pharmacy Consult: [...] labs: BMP daily x3. Thanks! Nilda Watt, Career Consultant Cosigned by Jace White, PharmD at 10/12/2024 8:27 PM EDT documented in this encounter H&P Notes * Elvis Morgan MD - 10/22/2024 4:51 PM EDT PHYSICIAN IMMEDIATE PRE-PROCEDURE UPDATE H&P and SEDATION ASSESSMENT Risks, benefits, potential complications and alternatives have been discussed with patient and/or patient's legal authorized inside sales account representative. HISTORY AND PHYSICAL Inpatient: H&P is [...] were not included. Name: Lopez Aquino ADDRESS: [place] [address] : 1945 AGE: 79 y.o. Hospital: [facility] Requesting Attending: Dr. Parra Primary Care Physician: [...] a left BR[facility]ON [facility] at [facility] (records are not available for review). Post-stenting [...] the left lower extremity. Left MC is COMMUNICATIONS AND SIGNALS SUPERVISOR 0.98 and DPA 0.84. 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 No color flow/spectral Doppler with intraluminal plaque noted throughout the left anterior tibial artery consistent with a total occlusion. Vascular Surgery History: 08/24/2023 - L BRYON stenting ([facility]) 08/29/2017 - LE angio with angio of the left COMMUNICATIONS AND SIGNALS SUPERVISOR, peroneal artery and SFA (Dr. Morgan) REVIEW [...] single episode, severe (HCC) 08/29/2017 Neuromuscular disorder ([facility]) NEUROPATHY Osteoarthritis PAD (peripheral artery disease) Peripheral vascular disease Toe infection 05/04/2018 left middle toe infection, on Keflex for this, instructed to call Dr Berger prior to surgery Wears glasses Past Surgical History: Procedure Laterality Date BLADDER TUMOR EXCISION N/A 09/02/2023 CYSTOSCOPY, SMALL TRANSURETHRAL RESECTION OF BLADDER TUMOR, FULGERATION OF BLADDER; Surgeon: Naman Murray MD; Location: [facility] OR; Service: Urology CATARACT REMOVAL Right 05/10/2018 RIGHT EYE CATARACT EXTRACTION WITH PHACOEMULSIFICATION AND INTRAOCULAR LENS; Surgeon: Naman Berger MD; Location: [facility]; Service: Ophthalmology CATARACT REMOVAL Left 05/24/2018 LEFT EYE CATARACT EXTRACTION WITH PHACOEMULSIFICATION AND INTRAOCULAR LENS; Surgeon: Naman Berger MD; Location: [facility]; Service: Ophthalmology CIRCUMCISION 2018 CORONARY ANGIOPLASTY WITH [...] IR REVAS FEM POP ART UNILAT W COMMUNICATIONS AND SIGNALS SUPERVISOR 08/29/2017 IR REVAS FEM POP ART UNILAT W COMMUNICATIONS AND SIGNALS SUPERVISOR 08/29/2017 Elvis Morgan MD EDG IR IR [...] 9.1 10/15/2024 GLU 306 (H) 10/15/2024 Radiology: NE US LOWER EXTREMITY ARTERIAL DUPLEX COMPLETE Result [...] left lower extremity. 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 * Left DBI [...] I reviewed the findings of the physician business support assistant/nurse practitioner and discussed the case in detail. Below is a summary of my pertinent independent evaluation and findings inaddition to the assessment and plan formulated by the physician business support assistant/nurse practitioner. Patient seen examined. Patient with history [...] completed using voice recognition technology. Despite the junior copywriter's best efforts to proof read, it may still contain unintended errors. Please call with questions. * Thomas Aguiar MD (Ronny) - 10/12/2024 8:52 PM EDT Images from [...] by mouth every morning. Provider, Historical Lancets [facility] Misc Lancet 100, meter 1, strips 100 [...] OF BLADDER; Surgeon: Naman Murray MD; Location: [facility]; Service: Urology CATARACT REMOVAL Right 05/10/2018 RIGHT EYE CATARACT EXTRACTION WITH PHACOEMULSIFICATION AND INTRAOCULAR LENS; Surgeon: Naman Berger MD; Location: [facility]; Service: Ophthalmology CATARACT REMOVAL Left 05/24/2018 LEFT EYE CATARACT EXTRACTION WITH PHACOEMULSIFICATION AND INTRAOCULAR LENS; Surgeon: Naman Berger MD; Location: [facility]; Service: Ophthalmology CIRCUMCISION 2018 CORONARY ANGIOPLASTY WITH [...] IR REVAS FEM POP ART UNILAT W COMMUNICATIONS AND SIGNALS SUPERVISOR 08/29/2017 IR REVAS FEM POP ART UNILAT W COMMUNICATIONS AND SIGNALS SUPERVISOR 08/29/2017 Elvis Morgan MD EDG IR IR [...] Alcohol use: No Past Med, SH and FH reviewed Review of Systems Constitutional: Negative for [...] foot infection (HCC) Coronary artery disease involving [place] coronary artery of [place] heart without angina pectoris Malignant neoplasm of urinary bladder (HCC) PAD (peripheral artery disease) Essential hypertension Diabetes mellitus type 2 in nonobese (HCC) ASSESSMENT/ PLAN: Assessment & Plan Diabetic foot infection (HCC) Continue vancomycin, cefepime, Flagyl Check ESR CRP Podiatry consult Check arterial duplex Coronary artery disease involving [place] coronary artery of [place] heart without angina pectoris Stents Resume GDMT-currently [...] kidney function will be closely followed Thomas Aguiar MD (Ronny) documented in this encounter Procedure Notes * Elvis Morgan MD - 10/22/2024 10:24 PM EDT Images from the original note were not included. Brief Cath Note Patient Name: Lopez Aquino MR No: [id number] Date of : 1945 PRE-OP DIAGNOSIS: R LE PAD with ulceration POST-OP DIAGNOSIS: Same PROCEDURE(S): Access L JET DYEING MACHINE TENDER with 5 fr with US Omni cath in aorta with aortogram with runoff Omni cath in aortic bifurcation with aortoiliac angiogram with runoff Cross bifurcation with cath in R JET DYEING MACHINE TENDER R LE angiogram L LE angiogram 5 fr destination in R JET DYEING MACHINE TENDER Cath in R Pop with additional tibial angiogram R Pern AP 4*100 DCB R Pop AP 4*100 DCB Completion angiogram Mynx L JET DYEING MACHINE TENDER SURGEON(S): Elvis Morgan MD INSURANCE ADMINISTRATIVE ASSISTANT(S): None ANESTHESIA: Local with Sedation SPECIMENS: None ESTIMATED BLOOD LOSS: Less than 10 ml. FINDINGS: DISPOSITION/POST PROC COURSE: Stable to recovery room. This note was completed using voice recognition technology. Despite the junior copywriter's best efforts to proof read, it may [...] ulcer and abscess. SURGEON: [employer] DPM INSURANCE ADMINISTRATIVE ASSISTANT: None. ANESTHESIA: Local with IV sedation. ESTIMATED [...] was obtained. There was fluctuance as well. Mariela made an incision proximally and distally about [...] [employer] Kruger D.P.M. By: Sheila Job ID: [id number] Doc ID: [id number] * Gr[employer] Kruger DPM - 10/14/2024 8:20 AM EDT [facility] OPERATIVE/PROCEDURE NOTE Lopez Lanza Sr. October 14, 2024 Body mass index is 28.96 kg/m??. PRE-OP DIAGNOSIS: Diabetic foot infection (HCC) [E11.628, L08.9] POST-OP DIAGNOSIS: Diabetic foot infection (HCC) [E11.628, L08.9] PROCEDURE(S): Procedure(s): INCISION, DRAINAGE and debridement right foot and leg SURGEON(S): Surgeons and Role: * [employer] Kruger DPM - Primary INSURANCE ADMINISTRATIVE ASSISTANT(S): ANESTHESIA: General SPECIMENS: ID Type Source Tests [...] documented in this encounter Consult Notes * PulaskiRosaJacqueline K, COMMUNITY LIVING INSTRUCTOR - 10/23/2024 12:22 PM EDTAssociated Order(s): IP CONSULT TO UROLOGY Images from the original note were not included. 10/23/2024 Lopez Lanza Sr. [facility] 1945 [id number] Reason for Consult: Hematuria Requesting Physician: Fahad [...] OF BLADDER; Surgeon: Naman Murray MD; Location: [facility] MAIN OR; Service: Urology CATARACT REMOVAL Right 05/10/2018 RIGHT EYE CATARACT EXTRACTION WITH PHACOEMULSIFICATION AND INTRAOCULAR LENS; Surgeon: Naman Berger MD; Location: [facility]; Service: Ophthalmology CATARACT REMOVAL Left 05/24/2018 LEFT EYE CATARACT EXTRACTION WITH PHACOEMULSIFICATION AND INTRAOCULAR LENS; Surgeon: Naman Berger MD; Location: [facility]; Service: Ophthalmology CIRCUMCISION 2018 CORONARY ANGIOPLASTY WITH STENT PLACEMENT 2002 stents x 3 DEBRIDEMENT 10/14/2024 Surgeon: Grupo Kruger DPM; Location: [facility] MAIN OR; Service: Podiatry DENTAL SURGERY [...] IR REVAS FEM POP ART UNILAT W COMMUNICATIONS AND SIGNALS SUPERVISOR 08/29/2017 IR REVAS FEM POP ART UNILAT W COMMUNICATIONS AND SIGNALS SUPERVISOR 08/29/2017 Elvis Morgan MD EDG IR IR [...] 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 Name: Lopez Aquino ADDRESS: [place] [address] : 1945 AGE: 79 y.o. Hospital: [facility] Requesting Attending: Dr. Parra Primary Care Physician: [...] a [facility] (records are not available for review). Post-stenting [...] the left lower extremity. Left MC is COMMUNICATIONS AND SIGNALS SUPERVISOR 0.98 and DPA 0.84. 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 No color flow/spectral Doppler with intraluminal plaque noted throughout the left anterior tibial artery consistent with a total occlusion. Vascular Surgery History: 08/24/2023 - L BRYON stenting ([facility]) 08/29/2017 - LE angio with angio of the left COMMUNICATIONS AND SIGNALS SUPERVISOR, peroneal artery and SFA (Dr. Morgan) REVIEW [...] Nightly Grupo Kruger DPM 40 mg at 10/14/242209 ceFEPIme (MAXIPIME) 1 g/50 mL IVPB 1 g Intravenous 3 times per day Gr[employer] Kruger DPM Stopped at 10/15/24 09 dextrose 50 % solution 25 mL 25 [...] Nightly [employer] Kruger DPM 30 mg at 10/14/242209 lisinopriL (PRINIVIL;ZESTril) tablet 20 mg 20 mg [...] OF BLADDER; Surgeon: Naman Murray MD; Location: [facility] MAIN OR; Service: Urology CATARACT REMOVAL Right 05/10/2018 RIGHT EYE CATARACT EXTRACTION WITH PHACOEMULSIFICATION AND INTRAOCULAR LENS; Surgeon: Naman Berger MD; Location: [facility]; Service: Ophthalmology CATARACT REMOVAL Left 05/24/2018 LEFT EYE CATARACT EXTRACTION WITH PHACOEMULSIFICATION AND INTRAOCULAR LENS; Surgeon: Naman Berger MD; Location: [facility]; Service: Ophthalmology CIRCUMCISION 2017 CORONARY ANGIOPLASTY WITH STENT PLACEMENT 2002 stents [...] IR REVAS FEM POP ART UNILAT W COMMUNICATIONS AND SIGNALS SUPERVISOR 08/29/2017 IR REVAS FEM POP ART UNILAT W COMMUNICATIONS AND SIGNALS SUPERVISOR 08/29/2017 Elvis Morgan MD EDG IR IR [...] 9.1 10/15/2024 GLU 306 (H) 10/15/2024 Radiology: NE US LOWER EXTREMITY ARTERIAL DUPLEX COMPLETE Result [...] left lower extremity. 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 * Left DBI [...] I reviewed the findings of the physician business support assistant/nurse practitioner and discussed the case in detail. Below is a summary of my pertinent independent evaluation and findings inaddition to the assessment and plan formulated by the physician business support assistant/nurse practitioner. Patient seen examined. Patient with history [...] completed using voice recognition technology. Despite the junior copywriter's best efforts to proof read, it may [...] been following [place] [facility] He and his partner care who was [...] single episode, severe (HCC) 08/29/2017 Neuromuscular disorder ([facility]) NEUROPATHY Osteoarthritis PAD (peripheral artery disease) Peripheral vascular disease Toe infection 05/04/2018 left middle toe infection, on Keflex for this, instructed to call Dr Berger prior to surgery Wears glasses Past Surgical History: Procedure Laterality Date BLADDER TUMOR EXCISION N/A 09/02/2023 CYSTOSCOPY, SMALL TRANSURETHRAL RESECTION OF BLADDER TUMOR, FULGERATION OF BLADDER; Surgeon: Naman Murray MD; Location: [facility] OR; Service: Urology CATARACT REMOVAL Right 05/10/2018 RIGHT EYE CATARACT EXTRACTION WITH PHACOEMULSIFICATION AND INTRAOCULAR LENS; Surgeon: Naman Berger MD; Location: [facility]; Service: Ophthalmology CATARACT REMOVAL Left 05/24/2018 LEFT EYE CATARACT EXTRACTION WITH PHACOEMULSIFICATION AND INTRAOCULAR LENS; Surgeon: Naman Berger MD; Location: [facility]; Service: Ophthalmology CIRCUMCISION 2018 CORONARY ANGIOPLASTY WITH [...] IR REVAS FEM POP ART UNILAT W COMMUNICATIONS AND SIGNALS SUPERVISOR 08/29/2017 IR REVAS FEM POP ART UNILAT W COMMUNICATIONS AND SIGNALS SUPERVISOR 08/29/2017 Elvis Morgan MD EDG IR IR [...] true Transportation Needs: No Transportation Needs (08/26/2023) [facility] IP Transportation In the past 12 months, has lack of reliable transportation kept you from medical appointments, meetings, work or from getting things needed for daily living?: No Physical Activity: Inactive (08/26/2023) Exercise Vital Sign Days of Exercise per Week: 0 days Minutes of Exercise per Session: 0 min Stress: No Stress Concern Present (08/26/2023) [employer] - Occupational Stress Questionnaire [...] from the original note were not included. [facility] EMERGENCY DEPARTMENT ENCOUNTER Pt Name: Lopez Aquino [...] that apparently [facility] but I am not able to get [...] note that this chart was generated using [employer] dictation software. DIAGNOSTIC RESULTS EKG: All EKG's are interpreted by the Emergency Department Physician who either signs or Co-signs this chart in the absence of a president & ceo [employer]. Monitor: Monitor was interpreted by me and [...] There is a study being done through [facility] ([place] test panel), run by one of our [...] consulted - NPO - angiogram today - COMMUNICATIONS AND SIGNALS SUPERVISOR ASA, lipitor, pletal - arterial studies as above CC/SW FOLLOWING FOR DC NEEDS * Utilization Review Notes - Gema Ivy RN - 10/19/2024 11:17 AM EDT CONT'D STAY REVIEW ON [address] [place] [address] FOR Cellulitis and abscess of foot, PAD [...] - closure pending vascular intervention - continue opal toure PAD (peripheral artery disease) SP left common iliac artery stent 08/23 - vascular consulted - angiogram Tuesday as above - COMMUNICATIONS AND SIGNALS SUPERVISOR ASA, lipitor, pletal - arterial studies as [...] podiatry - stop vanc - deescalate to keflexopal DC PLAN: CC following * Utilization Review [...] 75 Gram Carb Diet, Consult Podiatry, [place] US Lower Extremity Arterial Duplex Complete, Procedure: INCISION [...] Info) Description 11/21/2024 10:45 AM EDT Appointment [facility] [address] [place] [address] [place], Grupo A, DPM [address] [place] [address] Pending Results Name Type Priority Associated Diagnoses [...] 6:48 PM EDT Procedure Note - Jacqueline Jordan, COMMUNITY LIVING INSTRUCTOR - 10/23/2024 12:22 PM EDTThis note is in progress. Images from the original note were not included. 10/23/2024 Lopez Lanza Sr. [place] 1945 [id number] Reason for Consult: Hematuria Requesting Physician: Fahad [...] FULGERATIONOF BLADDER; Surgeon: Naman Murray MD; Location: [facility] MAIN OR;Service: Urology CATARACT REMOVAL Right 05/10/2018 RIGHT EYE CATARACT EXTRACTION WITH PHACOEMULSIFICATION AND INTRAOCULARLENS; Surgeon: Naman Berger MD; Location: [facility];Service: Ophthalmology CATARACT REMOVAL Left 05/24/2018 LEFT EYE CATARACT EXTRACTION WITH PHACOEMULSIFICATION AND INTRAOCULARLENS; Surgeon: Naman Berger MD; Location: [facility];Service: Ophthalmology CIRCUMCISION 2018 CORONARY ANGIOPLASTY WITH STENT [...] IR REVAS FEM POP ART UNILAT W COMMUNICATIONS AND SIGNALS SUPERVISOR 08/29/2017 IR REVAS FEM POP ART UNILAT W COMMUNICATIONS AND SIGNALS SUPERVISOR 08/29/2017 Elvis Morgan MD EDG IR IR [...] 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 Jacqueline Jordan, COMMUNITY LIVING INSTRUCTOR 10/23/2024 12:22 PM ECG AND WAVEFORMS - TELEMETRY Routine 10/22/2024 6:25 PM EDT IR REVAS TIB PER ART UNILAT INIT VES W COMMUNICATIONS AND SIGNALS SUPERVISOR GABRIEL 10/22/2024 6:17 PM EDT IR REVAS FEM POP ART UNILAT W COMMUNICATIONS AND SIGNALS SUPERVISOR GABRIEL 10/22/2024 6:17 PM EDT IR ULTRASOUND GUIDED [...] note were not included. Name: Lopez Lanza Sr. [place] ADDRESS: [place] [address] : 1945 AGE: 79 y.o. Hospital: [facility] Requesting Attending: Dr. Parra Primary Care Physician: [...] a left BRYON stent on 08/24/23 at [facility] (records are not available for review). Post-stenting [...] of the left lower extremity. LeftABI is COMMUNICATIONS AND SIGNALS SUPERVISOR 0.98 and DPA 0.84. 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 No colorflow/spectral Doppler with intraluminal plaque noted throughout the leftanterior tibial artery consistent with a total occlusion. Vascular Surgery History: 08/24/2023 - L BRYON stenting ([facility]) 08/29/2017 - LE angio with angio of the left COMMUNICATIONS AND SIGNALS SUPERVISOR, peroneal artery and SFA(Dr. Morgan) REVIEW OF [...] BID Grupo Kruger DPM5 mg at 10/15/24 09 atorvastatin (LIPITOR) tablet 40 mg 40 mg Oral Nightly Osmany Kruger DPM 40 mg at 10/14/242209 ceFEPIme (MAXIPIME) 1 g/50 mL IVPB 1 g Intravenous 3 times per dayWGrupo mckinnon DPM Stopped at 10/15/24 0953 dextrose 50 % solution 25 mL 25 mL Intravenous PRN Gurpo Kruger DPM diphenhydrAMINE (BENADRYL) injection 25 mg 25 mg Intravenous Q4H PRNLindsey Winn APRN 25 mg at 10/14/24 2249 enoxaparin (LOVENOX) injection 40 mg 40 mg Subcutaneous Daily - LMWH/XaAhsan Parra Jr., MD glucagon (GLUCAGEN) injection 1 mg 1 mg Intramuscular PRN Gr[employer] Kruger DPM And sterile water injection 1 mL 1 mL Injection PRN [employer] K[employer]ger DPM hydrALAZINE (APRESOLINE) tablet 25 mg 25 mg Oral TID PRN Ahsan Parra Jr., MD insulin aspart U-100 (NovoLOG) injection 1-15 Units 1-15 UnitsSubcutaneous QID WM Ahsan Parra Jr., MD insulin glargine U-100 (LANTUS) injection 20 Units 20 Units SubcutaneousQPM (Insulin) Ahsan Parra Jr., MD isosorbide mononitrate (IMDUR) CR tablet 30 mg 30 mg Oral NightlyWGrupo mckinnon DPM 30 mg at 10/14/242209 lisinopriL (PRINIVIL;ZESTril) tablet 20 mg 20 mg Oral Daily Ahsan Parra Jr., MD 20 mg at 10/15/24 09 metoprolol (LOPRESSOR) tablet 50 mg 50 mg Oral BID [employer] Kruger DPM 50 mg at 10/15/24 09 metroNIDAZOLE (FLAGYL) IVPB 500 mg 500 mg Intravenous 3 times per dayWGrupo mckinnon DPM Stopped at 10/14/24 2255 miconazole (MICATIN) [...] 300 mg 300 mg Oral BID Grupo KrugerDPM 300 mg at 10/15/24 0905 sodium chloride [...] FULGERATIONOF BLADDER; Surgeon: Naman Murray MD; Location: [facility] MAIN OR;Service: Urology CATARACT REMOVAL Right 05/10/2018 RIGHT EYE CATARACT EXTRACTION WITH PHACOEMULSIFICATION AND INTRAOCULARLENS; Surgeon: Naman Berger MD; Location: [facility];Service: Ophthalmology CATARACT REMOVAL Left 05/24/2018 LEFT EYE CATARACT EXTRACTION WITH PHACOEMULSIFICATION AND INTRAOCULARLENS; Surgeon: Naman Berger MD; Location: [facility];Service: Ophthalmology CIRCUMCISION 2018 CORONARY ANGIOPLASTY WITH STENT [...] IR REVAS FEM POP ART UNILAT W COMMUNICATIONS AND SIGNALS SUPERVISOR 08/29/2017 IR REVAS FEM POP ART UNILAT W COMMUNICATIONS AND SIGNALS SUPERVISOR 08/29/2017 Elvsi Morgan MD EDG IR IR TUNNEL CATHETER [...] 9.1 10/15/2024 GLU 306 (H) 10/15/2024 Radiology: NE US LOWER EXTREMITY ARTERIAL DUPLEX COMPLETE Result [...] the left lowerextremity. 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 * Left DBI [...] medications. I reviewed the findingsof the physician business support assistant/nurse practitioner and discussed the case indetail. Below is a summary of my pertinent independent evaluation andfindings in addition to the assessment and plan formulated by thephysician business support assistant/nurse practitioner. Patient seen examined. Patient with history [...] METER POC Routine 10/14/2024 3:27 PM EDT [facility] LOWER EXTREMITY ARTERIAL DUPLEX COMPLETE Routine [...] GLUCOSE METER POC (10/25/2024 8:49 AM EDT) Glucose Meter POC 145(H) 70 - 100 mg/dL 10/25/2024 8:51 AM EDT [facility] Sample Type Capillary 10/25/2024 8:51 AM EDT [facility] Patient Status Non-Critical Patient 10/25/2024 8:51 AM EDT [facility] Blood BLOOD SPECIMEN / Unknown 10/25/2024 8:49 AM EDT 10/25/2024 8:51 AM EDT us Igor Lynn MD POINT OF CARE TEST ORDERABLES Fi nal Result [facility] [address] [place], [place] [id number] * ECG AND WAVEFORMS - TELEMETRY (10/25/2024 7:30 AM EDT) ECG INTERPRET Sinus Rhythm w/ First Degree AVB [facility] Comment:sinus susanne 1st degr ee 10/25/2024 7:30 AM EDT Narrative [facility] - 10/25/2024 7:44 AM EDT ECB - ROUTINE MO 0.25 QRS 0.10 RR 1.20 QT 0.42 QTc 0.38 See Clinical Report link for waveform capture us Unknown Provider POINT OF CARE CARDIOLOGY Final Result [facility] [address] [place] [address] * (ABNORMAL) CBC (10/25/2024 5:42 AM EDT) WBC 6.5 3.7 - 10.3 x10(3)/mcL 10/25/2024 [...] - 12.5 fL 10/25/2024 6:34 AM EDT [facility] Blood VENOUS BLOOD / Unknown Venipuncture / Unknown 10/25/2024 5:42 AM EDT 10/25/2024 6:17 AM EDT us Elvis Morgan MD HEMATOLOGY ORDERABLES Final R esult [facility] [address] [facility] , [place] [address] * (ABNORMAL) GLUCOSE METER POC (10/25/2024 12:41 AM EDT) Glucose Meter POC 218(H) 70 - 100 mg/dL 10/25/2024 12:42 AM EDT [facility] Sample Type Capillary 10/25/2024 12:42 AM EDT [facility] Patient Status Non-Critical Patient 10/25/2024 12:42 AM EDT [facility] Blood BLOOD SPECIMEN / Unknown 10/25/2024 12:41 AM EDT 10/25/2024 12:42 AM EDT us Igor Lynn MD POINT OF CARE TEST ORDERABLES Fi nal Result Performing Organization Address City/[facility]/ZIP Co de Phone Number [address] [address] * (ABNORMAL) GLUCOSE METER POC (10/24/2024 9:29 PM EDT) Glucose Meter POC 420(H) 70 - 100 mg/dL 10/24/2024 9:30 PM EDT [facility] Sample Type Capillary 10/24/2024 9:30 PM EDT [facility] Patient Status Non-Critical Patient 10/24/2024 9:30 PM EDT [facility] Blood BLOOD SPECIMEN / Unknown 10/24/2024 9:29 PM EDT 10/24/2024 9:30 PM EDT us Igor Lynn MD POINT OF CARE TEST ORDERABLES Fi nal Result [address] [address] * (ABNORMAL) HEPARIN ANTI-XA, UNF (10/24/2024 8:54 PM EDT) Heparin Level UNF 0.27(L) 0.30 - 0.70 IU/mL 10/24/2024 9:31 PM EDT [facility] [place], [facility] Comment:The therapeutic rang e for heparinized patients monitored by the Heparin Lvl UF is 0.30-0.70 IU/mL. Blood VENOUS BLOOD / Unknown Venipuncture / Unknown 10/24/2024 8:54 PM EDT 10/24/2024 9:20 PM EDT us Igor Lynn MD HEMATOLOGY ORDERABLES Final Resu lt Performing Organization Address City/[facility]/ZIP Co de Phone Number [facility] [place], [address], [place] [address] * ECG AND WAVEFORMS - TELEMETRY (10/24/2024 8:45 PM EDT) ECG INTERPRET Sinus Bradycardia [facility] 10/24/2024 8:45 PM EDT Narrative [facility] - 10/24/2024 8:48 PM EDT ROUTINE W/ 1 DEG AVB (JM) MO 0.22 QRS 0.08 RR 1.01 QT 0.41 QTc 0.40 See Clinical Report link for waveform capture us Unknown Provider POINT OF CARE CARDIOLOGY Final Result Performing Organization Address [facility] Co de Phone Number [facility] [address] [place] [address] * (ABNORMAL) GLUCOSE METER POC (10/24/2024 6:07 PM EDT) Glucose Meter POC 328(H) 70 - 100 mg/dL 10/24/2024 6:09 PM EDT [facility] Sample Type Capillary 10/24/2024 6:09 PM EDT [facility] Patient Status Non-Critical Patient 10/24/2024 6:09 PM EDT [facility] Blood BLOOD SPECIMEN / Unknown 10/24/2024 6:07 PM EDT 10/24/2024 6:09 PM EDT us Igor Lynn MD POINT OF CARE TEST ORDERABLES Fi nal Result Performing Organization Address City/[facility]/ZIP Co de Phone Number [facility] [address] [place], [place] [id number] * (ABNORMAL) HEPARIN ANTI-XA, UNF (10/24/2024 3:10 PM EDT) Heparin Level UNF 0.19(L) 0.30 - 0.70 IU/mL 10/24/2024 3:35 PM EDT [facility] [employer] Comment:The therapeutic rang e for heparinized patients monitored by the Heparin Lvl UF is 0.30-0.70 IU/mL. Blood VENOUS BLOOD / Unknown Venipuncture / Unknown 10/24/2024 3:10 PM EDT 10/24/2024 3:25 PM EDT Fran Francisco MD HEMATOLOGY ORDERABLES Final Resu lt Performing Organization Address [facility]/ZIP Co de Phone Number [facility] [email or web address] [address], [place] [address] * (ABNORMAL) GLUCOSE METER POC (10/24/2024 12:37 PM EDT) Glucose Meter POC 238(H) 70 - 100 mg/dL 10/24/2024 12:39 PM EDT [facility] Sample Type Capillary 10/24/2024 12:39 PM EDT [facility] Patient Status Non-Critical Patient 10/24/2024 12:39 PM EDT [facility] Blood BLOOD SPECIMEN / Unknown 10/24/2024 12:37 PM EDT 10/24/2024 12:39 PM EDT us Igor Lynn MD POINT OF CARE TEST ORDERABLES Fi nal Result [address] [address] * (ABNORMAL) GLUCOSE METER POC (10/24/2024 7:01 AM EDT) Glucose Meter POC 168(H) 70 - 100 mg/dL 10/24/2024 7:02 AM EDT [facility] Sample Type Capillary 10/24/2024 7:02 AM EDT [facility] Patient Status Non-Critical Patient 10/24/2024 7:02 AM EDT [facility] Blood BLOOD SPECIMEN / Unknown 10/24/2024 7:01 AM EDT 10/24/2024 7:02 AM EDT us Igor Lynn MD POINT OF CARE TEST ORDERABLES Fi nal Result Performing Organization Address City/[facility]/ZIP Co de Phone Number [facility] [address] [place] [address] * ECG AND WAVEFORMS - TELEMETRY (10/24/2024 7:00 AM EDT) ECG INTERPRET First Degree Sinus Rhythm [facility] 10/24/2024 7:00 AM EDT Narrative [facility] - 10/24/2024 7:44 AM EDT ECB - ROUTINE - 1ST DEGREE AV BLOCK MO 0.21 QRS 0.12 RR 1.00 QT 0.45 QTc 0.45 See Clinical Report link for waveform capture us Unknown Provider POINT OF CARE CARDIOLOGY Final Result Performing Organization Address [facility] de Phone Number [facility] [address] [place] [address] * (ABNORMAL) HEPARIN ANTI-XA, UNF (10/24/2024 6:49 AM EDT) Heparin Level UNF 0.14(L) 0.30 - 0.70 IU/mL 10/24/2024 7:34 AM EDT [employer] Comment:The therapeutic rang e for heparinized patients monitored by the Heparin Lvl UF is 0.30-0.70 IU/mL. Blood VENOUS BLOOD / Unknown Venipuncture / Unknown 10/24/2024 6:49 AM EDT 10/24/2024 7:15 AM EDT us Elvis Morgan MD HEMATOLOGY ORDERABLES Final R esult Performing Organization Address City/[facility]/ZIP Co de Phone Number [employer] [address] [place] [address] , [place] [address] * (ABNORMAL) CBC (10/24/2024 6:49 AM EDT) Pathologist [facility] WBC 6.1 3.7 - 10.3 x10(3)/mcL 10/24/2024 [...] EDT 10/24/2024 7:15 AM EDT Jacqueline Jordan COMMUNITY LIVING INSTRUCTOR HEMATOLOGY ORDERABLES Fin al Result [facility] [address] [facility] , [place] [address] * (ABNORMAL) URINE CULTURE (NO STAIN) (10/23/2024 11:47 PM EDT) Culture Positive Growth(A) 10/25/2024 9:25 PM EDT [facility] Culture 5,000 CFU/mL Jeri tropicalis SUSCEPTIBI LITY RESULT 10/25/2024 9:25 PM EDT [facility] Comment:No further workup. Urine STRUCTURE OF URINARY TRACT PROPER / Unknown 10/23/2024 11:47 PM EDT 10/24/2024 12:02 AM EDT Jacqueline Jordan APRN MICROBIOLOGY - GENERAL OR DERABLES Final Result Performing Organization Address [facility]/ZIP Co de Phone Number [facility] [address] [facility], [place] [address] * EXTRA PINK URINE CX (10/23/2024 11:47 PM EDT) Urine STRUCTURE OF URINARY TRACT PROPER / Unknown 10/23/2024 11:47 PM EDT 10/23/2024 11:53 PM EDT Jacqueline Jordan APRN MICROBIOLOGY - GENERAL OR DERABLES Final Result Performing Organization Address [facility] [place] [address] * (ABNORMAL) URINALYSIS REFLEX (10/23/2024 11:47 PM EDT) UA Color [place] 10/24/2024 12:02 AM EDT [facility] UA Appear Cloudy(A) Clear 10/24/2024 12:02 AM EDT [facility] UA Glucose 4+ (>1000mg/dL) (A) Negative mg/dL 10/24/2024 12:02 AM EDT [facility] UA Ketones Negative Negative mg/dL 10/24/2024 12:02 AM EDT [facility] UA Blood 3+ (>= 1.0 mg/dL)(A) Negative 10/24/2024 12:02 AM EDT [facility] UA pH 6.5 5.0 - 8.0 pH 10/24/2024 12:02 AM EDT [facility] UA Protein Trace (10-20 mg/dL) Negative mg/dL 10/24/2024 12:02 AM EDT [facility] UA Urobilinogen Normal <=1 mg/dL 12:02 AM EDT [facility] [place] UA Bili Negative Negative 10/24/2024 12:02 AM EDT [facility] [place] UA Nitrite Negative Negative 10/24/2024 12:02 AM EDT [facility] UA Leuk Est 1+ (25 Maude/mcl)(A) Negative 10/24/2024 12:02 AM EDT [facility] UA Spec Grav 1.023 1.001 - 1.035 no units 10/24/2024 12:02 AM EDT [facility] Comment:Reference range aneesh d for random specimens only. UA WBC 8(H) 0 - 4 /HPF 10/24/2024 12:02 AM EDT [facility] [place] UA RBC >182(H) 0 - 3 /HPF 10/24/2024 12:02 AM EDT [facility] [place] Urine STRUCTURE OF URINARY TRACT PROPER / Unknown 10/23/2024 11:47 PM EDT 10/23/2024 11:53 PM EDT us Jacqueline Jordan COMMUNITY LIVING INSTRUCTOR URINE ORDERABLES Final Re sult [facility] [place] [address] [facility] , [place] [address] * (ABNORMAL) GLUCOSE METER POC (10/23/2024 10:43 PM EDT) [facility] Glucose Meter POC 285(H) 70 - 100 mg/dL 10/23/2024 10:45 PM EDT [facility] Sample Type Capillary 10/23/2024 10:45 PM EDT [facility] Patient Status Non-Critical Patient 10/23/2024 10:45 PM EDT [facility] Blood BLOOD SPECIMEN / Unknown 10/23/2024 10:43 PM EDT 10/23/2024 10:45 PM EDT us Igor Lynn MD POINT OF CARE TEST ORDERABLES Fi nal Result Performing Organization Address City/[facility]/ZIP Co de Phone Number [facility] [address] [place], [place] [id number] * ECG AND WAVEFORMS - TELEMETRY (10/23/2024 7:01 PM EDT) ECG INTERPRET NSR [facility] 10/23/2024 7:01 PM EDT Narrative [facility] - 10/23/2024 7:48 PM EDT ROUTINE(CW) MO 0.18 QRS 0.08 RR 0.81 QT 0.38 QTc 0.42 See Clinical Report link for waveform capture us Unknown Provider POINT OF CARE CARDIOLOGY Final Result Performing Organization Address [facility]/ZIP Co de Phone Number [facility] [address] [place], [place] [phone] * (ABNORMAL) CBC WITH DIFF (10/23/2024 6:53 PM EDT) WBC 6.5 3.7 - 10.3 x10(3)/mcL 10/23/2024 7:23 PM EDT [facility] RBC 4.68 4.60 - 6.10 x10(6)/mcL 10/23/2024 7:23 PM EDT [facility] Hgb 13.8 13.7 - 17.5 g/dL 10/23/2024 7:23 PM EDT [facility] Hct 42.9 40.0 - 51.0 % 10/23/2024 7:23 PM EDT [facility] MCV 91.7 80.0 - 100.0 fL 10/23/2024 7:23 PM EDT [facility] MCH 29.5 26.0 - 34.0 pg 10/23/2024 7:23 PM EDT [facility] MCHC 32.2 30.7 - 35.5 g/dL 10/23/2024 7:23 PM EDT [facility] RDW 15.6(H) <=14.9 % 10/23/2024 7:23 PM EDT [facility] Platelet 163 155 - 369 x10(3)/[facility] 10/23/2024 7:23 PM EDT [facility] MPV 11.0 8.8 - 12.5 fL 10/23/2024 7:23 PM EDT [facility] Neut Percent 53.2 % 10/23/2024 7:23 PM EDT [facility] Comment:Neutrophils equals s egs plus bands Imm Gran% 0.3 % 10/23/2024 7:23 PM EDT [facility] Comment:Automated count of m etamyelocytes, myelocytes and promyelocytes. Lymph Percent 29.8 % 10/23/2024 7:23 PM EDT [facility] Irwin Percent 13.3 % 10/23/2024 7:23 PM EDT [facility] Eos Percent 2.3 % 10/23/2024 7:23 PM EDT [facility] Baso Percent 1.1 % 10/23/2024 7:23 PM EDT [facility] Neut # 3.4 1.6 - 6.1 x10(3)/[facility] 10/23/2024 7:23 PM EDT [facility] Comment:Neutrophils equals s egs plus bands IMMGRAN# 0.0 0.0 - 0.1 x10(3)/[facility] 10/23/2024 7:23 PM EDT [facility] Comment:Automated count of m etamyelocytes, myelocytes and promyelocytes. An absolute IG <0.1 is reported as 0.0. Lymph # 1.9 1.2 - 3.9 x10(3)/[facility] 10/23/2024 7:23 PM EDT [facility] Irwin # 0.9 0.3 - 0.9 x10(3)/[facility] 10/23/2024 7:23 PM EDT [facility] Eos# 0.2 0.0 - 0.5 x10(3)/[facility] 10/23/2024 7:23 PM EDT [facility] Baso # 0.1 0.0 - 0.1 x10(3)/[facility] 10/23/2024 7:23 PM EDT [facility] Blood VENOUS BLOOD / Unknown Venipuncture / Unknown 10/23/2024 6:53 PM EDT 10/23/2024 7:15 PM EDT Elvis Morgan MD HEMATOLOGY ORDERABLES Final R esult [facility] [employer] [address] [facility], [place] [address] * (ABNORMAL) GLUCOSE METER POC (10/23/2024 6:04 PM EDT) Glucose Meter POC 349(H) 70 - 100 mg/dL 10/23/2024 6:06 PM EDT [facility] Sample Type Capillary 10/23/2024 6:06 PM EDT [facility] Patient Status Non-Critical Patient 10/23/2024 6:06 PM EDT [facility] Blood BLOOD SPECIMEN / Unknown 10/23/2024 6:04 PM EDT 10/23/2024 6:06 PM EDT us Igor Lynn MD POINT OF CARE TEST ORDERABLES Fi nal Result Performing Organization Address [facility] Co de Phone Number [address] [phone] * (ABNORMAL) GLUCOSE METER POC (10/23/2024 3:10 PM EDT) Glucose Meter POC 304(H) 70 - 100 mg/dL 10/23/2024 3:12 PM EDT [facility] Sample Type Capillary 10/23/2024 3:12 PM EDT [facility] Patient Status Non-Critical Patient 10/23/2024 3:12 PM EDT [facility] Blood BLOOD SPECIMEN / Unknown 10/23/2024 3:10 PM EDT 10/23/2024 3:12 PM EDT us Igor Lynn MD POINT OF CARE TEST ORDERABLES Fi nal Result Performing Organization Address City/[facility]/ZIP Co de Phone Number [address] [phone] * US RENAL AND BLADDER (10/23/2024 1:38 [...] evaluation of the kidneys and bladder with inside sales account representative images and patient financial specialist notes sent to PACS for radiologist review. [...] sonographic evaluation of the kidneys andbladder with inside sales account representative images and patient financial specialist notes sent to PACS forradiologist review. FINDINGS: [...] contactthe office of the ordering clinician. us Jacqueline Osito Julian COMMUNITY LIVING INSTRUCTOR IMG US ORDERABLES Final R esult * (ABNORMAL) GLUCOSE METER POC (10/23/2024 8:40 AM EDT) Glucose Meter POC 131(H) 70 - 100 mg/dL 10/23/2024 8:41 AM EDT [facility] Sample Type Capillary 10/23/2024 8:41 AM EDT [facility] Patient Status Non-Critical Patient 10/23/2024 8:41 AM EDT [facility] Blood BLOOD SPECIMEN / Unknown 10/23/2024 8:40 AM EDT 10/23/2024 8:41 AM EDT Igor Lynn MD POINT OF CARE TEST ORDERABLES Fi nal Result Performing Organization Address City/[facility]/ZIP Co de Phone Number [facility] [address] [place] [address] * ECG AND WAVEFORMS - TELEMETRY (10/23/2024 7:35 AM EDT) [facility] ECG INTERPRET Sinus Bradycardia [facility] 10/23/2024 7:35 AM EDT Narrative [facility] - 10/23/2024 7:59 AM EDT ROUTINE/1ST DEGREE AVB/EA MO 0.24 QRS 0.10 RR 1.13 QT 0.42 QTc 0.40 See Clinical Report link for waveform capture us Unknown Provider POINT OF CARE CARDIOLOGY Final Result [facility] [address] [place] [phone] * (ABNORMAL) GLUCOSE METER POC (10/22/2024 11:16 PM EDT) Glucose Meter POC 153(H) 70 - 100 mg/dL 10/22/2024 11:18 PM EDT [facility] Sample Type Capillary 10/22/2024 11:18 PM EDT [facility] Patient Status Non-Critical Patient 10/22/2024 11:18 PM EDT [facility] Blood BLOOD SPECIMEN / Unknown 10/22/2024 11:16 PM EDT 10/22/2024 11:18 PM EDT us Igor Lynn MD POINT OF CARE TEST ORDERABLES Fi nal Result Performing Organization Address City/[facility]/ZIP Co de Phone Number [facility] [address] [place] [address] * ECG AND WAVEFORMS - TELEMETRY (10/22/2024 7:00 PM EDT) ECG INTERPRET Sinus Bradycardia [facility] 10/22/2024 7:00 PM EDT Narrative [facility] - 10/22/2024 7:33 PM EDT ROUTINE(CW) MO 0.23 QRS 0.06 RR 1.07 QT 0.39 QTc 0.38 See Clinical Report link for waveform capture us Unknown Provider POINT OF CARE CARDIOLOGY Final Result Performing Organization Address City/[facility] Co de Phone Number [facility] [address] [place] [address] * IR REVAS TIB PER ART UNILAT INIT VES W COMMUNICATIONS AND SIGNALS SUPERVISOR (10/22/2024 6:17 PM EDT) Anatomical Region Laterality [...] aggressive wound care for wound healing. TID [id number] Narrative 10/26/2024 1:19 PM EDT ACCESSION NUMBER: [id number] DATE OF PROCEDURE: 10/22/2024. PREOPERATIVE DIAGNOSIS: Right lower extremity PAD (peripheral arterial disease) with nonhealing ulceration. POSTOPERATIVE DIAGNOSIS: Right lower extremity PAD (peripheral arterial disease) with nonhealing ulceration. PROCEDURES: Access of left common femoral artery with 5-Palestinian sheath with ultrasound guidance. Omni catheter placed in the aorta with aortogram with runoff. Omni catheter placed in the aortic bifurcation with aortoiliac angiogram with runoff. Crossing bifurcation with catheter placed in the right common femoral artery. Right lower extremity angiogram with runoff. Left lower extremity angiogram with runoff. 5-Palestinian Destination sheath in the right common femoral [...] a recent angiogram with intervention by in [place] approximately 2 weeks ago. The patient, however, [...] patient was identified and brought to the [employer]. After adequate sedation was obtained, the patient was prepped and draped in the usual sterile fashion in supine position over the entire left lower abdomen and groin. Left common femoral artery was accessed with a large Bore needle with ultrasound guidance. Through this needle, a wire was inserted and 5-Palestinian sheath was inserted. The right common femoral [...] heparin. After waiting for five minutes, the 5-Palestinian sheath was exchanged for a 5-Palestinian Destination sheath placed in the right common [...] to the foot. us Elvis Morgan MD G IR ORDERABLES Final Resul t * IR REVAS FEM POP ART UNILAT W COMMUNICATIONS AND SIGNALS SUPERVISOR (10/22/2024 6:17 PM EDT) Anatomical Region Laterality [...] continue aggressive wound care for wound healing. DAVID [id number] Narrative 10/26/2024 1:19 PM EDT ACCESSION NUMBER: [id number] DATE OF PROCEDURE: 10/22/2024. PREOPERATIVE DIAGNOSIS: Right lower extremity PAD (peripheral arterial disease) with nonhealing ulceration. POSTOPERATIVE DIAGNOSIS: Right lower extremity PAD (peripheral arterial disease) with nonhealing ulceration. PROCEDURES: Access of left common femoral artery with 5-Palestinian sheath with ultrasound guidance. Omni catheter placed in the aorta with aortogram with runoff. Omni catheter placed in the aortic bifurcation with aortoiliac angiogram with runoff. Crossing bifurcation with catheter placed in the right common femoral artery. Right lower extremity angiogram with runoff. Left lower extremity angiogram with runoff. 5-Palestinian Destination sheath in the right common femoral [...] a recent angiogram with intervention by in [place] approximately 2 weeks ago. The patient, however, [...] patient was identified and brought to the [employer]. After adequate sedation was obtained, the patient was prepped and draped in the usual sterile fashion in supine position over the entire left lower abdomen and groin. Left common femoral artery was accessed with a large Bore needle with ultrasound guidance. Through this needle, a wire was inserted and 5-Palestinian sheath was inserted. The right common femoral [...] heparin. After waiting for five minutes, the 5-Palestinian sheath was exchanged for a 5-Palestinian Destination sheath placed in the right common [...] aggressive wound care for wound healing. TID [id number] Narrative 10/26/2024 1:19 PM EDT ACCESSION NUMBER: [id number] DATE OF PROCEDURE: 10/22/2024. PREOPERATIVE DIAGNOSIS: Right lower extremity PAD (peripheral arterial disease) with nonhealing ulceration. POSTOPERATIVE DIAGNOSIS: Right lower extremity PAD (peripheral arterial disease) with nonhealing ulceration. PROCEDURES: Access of left common femoral artery with 5-Palestinian sheath with ultrasound guidance. Omni catheter placed in the aorta with aortogram with runoff. Omni catheter placed in the aortic bifurcation with aortoiliac angiogram with runoff. Crossing bifurcation with catheter placed in the right common femoral artery. Right lower extremity angiogram with runoff. Left lower extremity angiogram with runoff. 5-Palestinian Destination sheath in the right common femoral [...] a recent angiogram with intervention by in [place] approximately 2 weeks ago. The patient, however, [...] patient was identified and brought to the [employer]. After adequate sedation was obtained, the patient was prepped and draped in the usual sterile fashion in supine position over the entire left lower abdomen and groin. Left common femoral artery was accessed with a large Bore needle with ultrasound guidance. Through this needle, a wire was inserted and 5-Palestinian sheath was inserted. The right common femoral [...] heparin. After waiting for five minutes, the 5-Palestinian sheath was exchanged for a 5-Palestinian Destination sheath placed in the right common [...] aggressive wound care for wound healing. TID [id number] Narrative 10/26/2024 1:19 PM EDT ACCESSION NUMBER: [id number] DATE OF PROCEDURE: 10/22/2024. PREOPERATIVE DIAGNOSIS: Right lower extremity PAD (peripheral arterial disease) with nonhealing ulceration. POSTOPERATIVE DIAGNOSIS: Right lower extremity PAD (peripheral arterial disease) with nonhealing ulceration. PROCEDURES: Access of left common femoral artery with 5-Palestinian sheath with ultrasound guidance. Omni catheter placed in the aorta with aortogram with runoff. Omni catheter placed in the aortic bifurcation with aortoiliac angiogram with runoff. Crossing bifurcation with catheter placed in the right common femoral artery. Right lower extremity angiogram with runoff. Left lower extremity angiogram with runoff. 5-Palestinian Destination sheath in the right common femoral [...] patient was identified and brought to the [employer]. After adequate sedation was obtained, the patient was prepped and draped in the usual sterile fashion in supine position over the entire left lower abdomen and groin. Left common femoral artery was accessed with a large Bore needle with ultrasound guidance. Through this needle, a wire was inserted and 5-Palestinian sheath was inserted. The right common femoral [...] heparin. After waiting for five minutes, the 5-Palestinian sheath was exchanged for a 5-Palestinian Destination sheath placed in the right common [...] aggressive wound care for wound healing. TID [id number] Narrative 10/26/2024 1:19 PM EDT ACCESSION NUMBER: [id number] DATE OF PROCEDURE: 10/22/2024. PREOPERATIVE DIAGNOSIS: Right lower extremity PAD (peripheral arterial disease) with nonhealing ulceration. POSTOPERATIVE DIAGNOSIS: Right lower extremity PAD (peripheral arterial disease) with nonhealing ulceration. PROCEDURES: Access of left common femoral artery with 5-Palestinian sheath with ultrasound guidance. Omni catheter placed in the aorta with aortogram with runoff. Omni catheter placed in the aortic bifurcation with aortoiliac angiogram with runoff. Crossing bifurcation with catheter placed in the right common femoral artery. Right lower extremity angiogram with runoff. Left lower extremity angiogram with runoff. 5-Palestinian Destination sheath in the right common femoral [...] a recent angiogram with intervention by in [place] approximately 2 weeks ago. The patient, however, [...] patient was identified and brought to the [employer]. After adequate sedation was obtained, the patient was prepped and draped in the usual sterile fashion in supine position over the entire left lower abdomen and groin. Left common femoral artery was accessed with a large Bore needle with ultrasound guidance. Through this needle, a wire was inserted and 5-Palestinian sheath was inserted. The right common femoral [...] heparin. After waiting for five minutes, the 5-Palestinian sheath was exchanged for a 5-Palestinian Destination sheath placed in the right common [...] pedis to the foot. Elvis Morgan MD IMG IR ORDERABLES Final Resul t * (ABNORMAL) GLUCOSE METER POC (10/22/2024 11:59 AM EDT) Glucose Meter POC 147(H) 70 - 100 mg/dL 10/22/2024 12:00 PM EDT [facility] Sample Type Capillary 10/22/2024 12:00 PM EDT [facility] Patient Status Non-Critical Patient 10/22/2024 12:00 PM EDT [facility] Blood BLOOD SPECIMEN / Unknown 10/22/2024 11:59 AM EDT 10/22/2024 12:00 PM EDT Igor Lynn MD POINT OF CARE TEST ORDERABLES Fi nal Result [place] [phone] * (ABNORMAL) GLUCOSE METER POC (10/22/2024 8:07 AM EDT) Glucose Meter POC 150(H) 70 - 100 mg/dL 10/22/2024 8:09 AM EDT [facility] Sample Type Capillary 10/22/2024 8:09 AM EDT [facility] Patient Status Non-Critical Patient 10/22/2024 8:09 AM EDT [facility] Blood BLOOD SPECIMEN / Unknown 10/22/2024 8:07 AM EDT 10/22/2024 8:09 AM EDT us Igor Lynn MD POINT OF CARE TEST [place] [address] * (ABNORMAL) GLUCOSE METER POC (10/21/2024 9:30 PM EDT) Glucose Meter POC 278(H) 70 - 100 mg/dL 10/21/2024 9:32 PM EDT [facility] Sample Type Capillary 10/21/2024 9:32 PM EDT [facility] Patient Status Non-Critical Patient 10/21/2024 9:32 PM EDT [facility] Blood BLOOD SPECIMEN / Unknown 10/21/2024 9:30 PM EDT 10/21/2024 9:32 PM EDT us Igor Lynn MD POINT OF CARE TEST ORDERABLES Fi nal Result Performing Organization Address [facility] [place] [address] * (ABNORMAL) GLUCOSE METER POC (10/21/2024 6:05 PM EDT) Glucose Meter POC 322(H) 70 - 100 mg/dL 10/21/2024 6:07 PM EDT [facility] Sample Type Capillary 10/21/2024 6:07 PM EDT [facility] Patient Status Non-Critical Patient 10/21/2024 6:07 PM EDT [facility] Blood BLOOD SPECIMEN / Unknown 10/21/2024 6:05 PM EDT 10/21/2024 6:07 PM EDT us Igor Lynn MD POINT OF CARE TEST ORDERABLES Fi nal Result Performing Organization Address City/[facility]/[place] [address] * (ABNORMAL) GLUCOSE METER POC (10/21/2024 1:24 PM EDT) Glucose Meter POC 257(H) 70 - 100 mg/dL 10/21/2024 1:26 PM EDT [facility] Sample Type Capillary 10/21/2024 1:26 PM EDT [facility] Patient Status Non-Critical Patient 10/21/2024 1:26 PM EDT [facility] Blood BLOOD SPECIMEN / Unknown 10/21/2024 1:24 PM EDT 10/21/2024 1:26 PM EDT us Igor Lynn MD POINT OF CARE TEST ORDERABLES Fi nal Result Performing Organization Address [facility]/ZIP Co de Phone Number [address] [address] * (ABNORMAL) GLUCOSE METER POC (10/21/2024 9:36 AM EDT) Glucose Meter POC 176(H) 70 - 100 mg/dL 10/21/2024 9:38 AM EDT [facility] Sample Type Capillary 10/21/2024 9:38 AM EDT [facility] Patient Status Non-Critical Patient 10/21/2024 9:38 AM EDT [facility] Blood BLOOD SPECIMEN / Unknown 10/21/2024 9:36 AM EDT 10/21/2024 9:38 AM EDT us Igor Lynn MD POINT OF CARE TEST ORDERABLES Fi nal Result [address] [address] * (ABNORMAL) GLUCOSE METER POC (10/20/2024 10:51 PM EDT) Glucose Meter POC 301(H) 70 - 100 mg/dL 10/20/2024 10:53 PM EDT [facility] Sample Type Capillary 10/20/2024 10:53 PM EDT [facility] Patient Status Non-Critical Patient 10/20/2024 10:53 PM EDT [facility] Blood BLOOD SPECIMEN / Unknown 10/20/2024 10:51 PM EDT 10/20/2024 10:53 PM EDT us Igor Lynn MD POINT OF CARE TEST ORDERABLES Fi nal Result Performing Organization Address City/[facility]/[place] [address] * (ABNORMAL) GLUCOSE METER POC (10/20/2024 7:04 PM EDT) Glucose Meter POC 196(H) 70 - 100 mg/dL 10/20/2024 7:06 PM EDT [facility] Sample Type Capillary 10/20/2024 7:06 PM EDT [facility] Patient Status Non-Critical Patient 10/20/2024 7:06 PM EDT [facility] Blood BLOOD SPECIMEN / Unknown 10/20/2024 7:04 PM EDT 10/20/2024 7:06 PM EDT us Igor Lynn MD POINT OF CARE TEST ORDERABLES Fi nal Result Performing Organization Address [facility] [place] [address] * (ABNORMAL) GLUCOSE METER POC (10/20/2024 1:32 PM EDT) Glucose Meter POC 229(H) 70 - 100 mg/dL 10/20/2024 1:33 PM EDT [facility] Sample Type Capillary 10/20/2024 1:33 PM EDT [facility] Patient Status Non-Critical Patient 10/20/2024 1:33 PM EDT [facility] Blood BLOOD SPECIMEN / Unknown 10/20/2024 1:32 PM EDT 10/20/2024 1:33 PM EDT us Igor Lynn MD POINT OF CARE TEST ORDERABLES Fi nal Result Performing Organization Address City/[facility]/ZIP Co de Phone Number [address] [address] * (ABNORMAL) GLUCOSE METER POC (10/20/2024 10:27 AM EDT) Glucose Meter POC 127(H) 70 - 100 mg/dL 10/20/2024 10:29 AM EDT [facility] Sample Type Capillary 10/20/2024 10:29 AM EDT [facility] Patient Status Non-Critical Patient 10/20/2024 10:29 AM EDT [facility] Blood BLOOD SPECIMEN / Unknown 10/20/2024 10:27 AM EDT 10/20/2024 10:29 AM EDT us Igor Lynn MD POINT OF CARE TEST ORDERABLES Fi nal Result Performing Organization Address [facility] Co de Phone Number [address] [address] * (ABNORMAL) GLUCOSE METER POC (10/19/2024 9:44 PM EDT) Glucose Meter POC 292(H) 70 - 100 mg/dL 10/19/2024 9:46 PM EDT [facility] Sample Type Capillary 10/19/2024 9:46 PM EDT [facility] Patient Status Non-Critical Patient 10/19/2024 9:46 PM EDT [facility] Blood BLOOD SPECIMEN / Unknown 10/19/2024 9:44 PM EDT 10/19/2024 9:46 PM EDT us Igor Lynn MD POINT OF CARE TEST ORDERABLES Fi nal Result Performing Organization Address City/[facility]/ZIP Co de Phone Number [address] [address] * (ABNORMAL) GLUCOSE METER POC (10/19/2024 6:22 PM EDT) Glucose Meter POC 189(H) 70 - 100 mg/dL 10/19/2024 6:24 PM EDT [facility] Sample Type Capillary 10/19/2024 6:24 PM EDT [facility] Patient Status Non-Critical Patient 10/19/2024 6:24 PM EDT [facility] Blood BLOOD SPECIMEN / Unknown 10/19/2024 6:22 PM EDT 10/19/2024 6:24 PM EDT us Igor Lynn MD POINT OF CARE TEST ORDERABLES Fi nal Result Performing Organization Address City/[facility]/ZIP Co de Phone Number [address] [address] * (ABNORMAL) GLUCOSE METER POC (10/19/2024 1:46 PM EDT) Glucose Meter POC 161(H) 70 - 100 mg/dL 10/19/2024 1:47 PM EDT [facility] Sample Type Capillary 10/19/2024 1:47 PM EDT [facility] Patient Status Non-Critical Patient 10/19/2024 1:47 PM EDT [facility] Blood BLOOD SPECIMEN / Unknown 10/19/2024 1:46 PM EDT 10/19/2024 1:47 PM EDT us Igor Lynn MD POINT OF CARE TEST ORDERABLES Fi nal Result Performing Organization Address City/[facility]/ZIP Co de Phone Number [address] [address] * (ABNORMAL) BASIC METABOLIC PANEL (10/19/2024 11:11 AM EDT) Sodium 136 136 - 145 mmol/L 10/19/2024 12:05 PM EDT [facility] Potassium 4.5 3.5 - 5.0 mmol/L 10/19/2024 12:05 PM EDT [facility] Chloride 102 98 - 107 mmol/L 10/19/2024 12:05 PM EDT [facility] Total CO2 25 22 - 29 mmol/L 10/19/2024 12:05 PM EDT [facility] Anion Gap 9 7 - 16 mmol/L 10/19/2024 12:05 PM EDT [facility], [facility] Calcium 9.3 8.8 - 10.4 mg/dL 10/19/2024 12:05 PM EDT [facility] Glucose Lvl 179(H) 70 - 99 mg/dL 10/19/2024 12:05 PM EDT [facility] LAB [facility] [place], [facility] BUN 18 8 - 23 mg/dL 10/19/2024 12:05 PM EDT [facility], [facility] Creatinine 0.69 0.67 - 1.30 mg/dL 10/19/2024 12:05 PM EDT [facility], [facility] eGFR (CKD-EPIcr 2020) 94 >=60 mL/min/1.7 3 m2 10/19/2024 12:05 PM EDT [facility] Comment:Estimated GFR was ca lculated using the CKD-EPIcr (2020) equation refit without race. The equation is recommended by the [employer] - [place] [employer] Neph[employer] Task Force. Blood VENOUS BLOOD / Unknown Venipuncture / Unknown 10/19/2024 11:11 AM EDT 10/19/2024 11:17 AM EDT Igor Lynn MD CHEMISTRY ORDERABLES Final Resul t [facility] [place], [facility] [address] [facility] , [place] [address] * (ABNORMAL) GLUCOSE METER POC (10/19/2024 9:35 AM EDT) [facility] Glucose Meter POC 124(H) 70 - 100 mg/dL 10/19/2024 9:37 AM EDT [facility] Sample Type Capillary 10/19/2024 9:37 AM EDT [facility] Patient Status Non-Critical Patient 10/19/2024 9:37 AM EDT [facility] Blood BLOOD SPECIMEN / Unknown 10/19/2024 9:35 AM EDT 10/19/2024 9:37 AM EDT us Igor Lynn MD POINT OF CARE TEST ORDERABLES Fi nal Result Performing Organization Address City/[facility]/ZIP Co de Phone Number [address] [phone] * (ABNORMAL) GLUCOSE METER POC (10/18/2024 9:57 PM EDT) Glucose Meter POC 253(H) 70 - 100 mg/dL 10/18/2024 9:58 PM EDT [facility] Sample Type Capillary 10/18/2024 9:58 PM EDT [facility] Patient Status Non-Critical Patient 10/18/2024 9:58 PM EDT [facility] Blood BLOOD SPECIMEN / Unknown 10/18/2024 9:57 PM EDT 10/18/2024 9:58 PM EDT us Igor Lynn MD POINT OF CARE TEST ORDERABLES Fi nal Result Performing Organization Address [facility] Co de Phone Number [address] [address] * (ABNORMAL) GLUCOSE METER POC (10/18/2024 6:49 PM EDT) Glucose Meter POC 236(H) 70 - 100 mg/dL 10/18/2024 6:50 PM EDT [facility] Sample Type Capillary 10/18/2024 6:50 PM EDT [facility] Patient Status Non-Critical Patient 10/18/2024 6:50 PM EDT [facility] Blood BLOOD SPECIMEN / Unknown 10/18/2024 6:49 PM EDT 10/18/2024 6:50 PM EDT us Igor Lynn MD POINT OF CARE TEST ORDERABLES Fi nal Result Performing Organization Address City/[facility]/ZIP Co de Phone Number [address] [address] * (ABNORMAL) GLUCOSE METER POC (10/18/2024 1:37 PM EDT) Glucose Meter POC 236(H) 70 - 100 mg/dL 10/18/2024 1:38 PM EDT [facility] Sample Type Capillary 10/18/2024 1:38 PM EDT [facility] Patient Status Non-Critical Patient 10/18/2024 1:38 PM EDT [facility] Blood BLOOD SPECIMEN / Unknown 10/18/2024 1:37 PM EDT 10/18/2024 1:38 PM EDT us Igor Lynn MD POINT OF CARE TEST ORDERABLES Fi nal Result Performing Organization Address City/[facility]/ZIP Co de Phone Number [address] [address] * (ABNORMAL) GLUCOSE METER POC (10/18/2024 8:20 AM EDT) Glucose Meter POC 214(H) 70 - 100 mg/dL 10/18/2024 8:22 AM EDT [facility] Sample Type Capillary 10/18/2024 8:22 AM EDT [facility] Patient Status Non-Critical Patient 10/18/2024 8:22 AM EDT [facility] Blood BLOOD SPECIMEN / Unknown 10/18/2024 8:20 AM EDT 10/18/2024 8:22 AM EDT us Igor Lynn MD POINT OF CARE TEST ORDERABLES Fi nal Result Performing Organization Address City/[facility]/ZIP Co de Phone Number [address] [address] * (ABNORMAL) BASIC METABOLIC PANEL (10/18/2024 7:18 AM EDT) Sodium 136 136 - 145 mmol/L 10/18/2024 8:06 AM EDT [facility] Potassium 3.8 3.5 - 5.0 mmol/L 10/18/2024 8:06 AM EDT [facility] Chloride 105 98 - 107 mmol/L 10/18/2024 8:06 AM EDT [facility] Total CO2 22 22 - 29 mmol/L 10/18/2024 8:06 AM EDT [facility] Anion Gap 9 7 - 16 mmol/L 10/18/2024 8:06 AM EDT [facility] Calcium 8.7(L) 8.8 - 10.4 mg/dL 10/18/2024 8:06 AM EDT [facility] [place] Glucose Lvl 209(H) 70 - 99 mg/dL 10/18/2024 8:06 AM EDT [facility] BUN 23 8 - 23 mg/dL 10/18/2024 8:06 AM EDT [facility] Creatinine 0.67 0.67 - 1.30 mg/dL 10/18/2024 8:06 AM EDT [facility] [place] eGFR (CKD-EPIcr 2020) 94 >=60 mL/min/1.7 3 m2 10/18/2024 8:06 AM EDT [facility] [place] Comment:Estimated GFR was ca lculated using the CKD-EPIcr (2020) equation refit without race. The equation is recommended by the National Kid[employer] - [place] [employer] of Nephrology Task Force. Blood VENOUS BLOOD / Unknown Venipuncture / Unknown 10/18/2024 7:18 AM EDT 10/18/2024 7:22 AM EDT us Igor Lynn MD CHEMISTRY ORDERABLES Final Resul t [facility] [address] [facility] , [address] [place] [phone] * (ABNORMAL) GLUCOSE METER POC (10/17/2024 10:47 PM EDT) [facility] Glucose Meter POC 231(H) 70 - 100 mg/dL 10/17/2024 10:49 PM EDT [facility] Sample Type Capillary 10/17/2024 10:49 PM EDT [facility] Patient Status Non-Critical Patient 10/17/2024 10:49 PM EDT [facility] Blood BLOOD SPECIMEN / Unknown 10/17/2024 10:47 PM EDT 10/17/2024 10:49 PM EDT us Igor Lynn MD POINT OF CARE TEST ORDERABLES Fi nal Result Performing Organization Address City/[facility]/ZIP Co de Phone Number [facility] [address] [place] [address] * (ABNORMAL) GLUCOSE METER POC (10/17/2024 6:15 PM EDT) Glucose Meter POC 299(H) 70 - 100 mg/dL 10/17/2024 6:17 PM EDT [facility] Sample Type Capillary 10/17/2024 6:17 PM EDT [facility] Patient Status Non-Critical Patient 10/17/2024 6:17 PM EDT [facility] Blood BLOOD SPECIMEN / Unknown 10/17/2024 6:15 PM EDT 10/17/2024 6:17 PM EDT us Igor Lynn MD POINT OF CARE TEST ORDERABLES Fi nal Result Performing Organization Address [facility] Co de Phone Number [facility] [address] [place] [address] * (ABNORMAL) GLUCOSE METER POC (10/17/2024 1:35 PM EDT) Glucose Meter POC 338(H) 70 - 100 mg/dL 10/17/2024 1:36 PM EDT [facility] Sample Type Capillary 10/17/2024 1:36 PM EDT [facility] Patient Status Non-Critical Patient 10/17/2024 1:36 PM EDT [facility] Blood BLOOD SPECIMEN / Unknown 10/17/2024 1:35 PM EDT 10/17/2024 1:36 PM EDT us Igor Lynn MD POINT OF CARE TEST ORDERABLES Fi nal Result Performing Organization Address City/[facility]/ZIP Co de Phone Number [facility] [address] [place] [address] * (ABNORMAL) GLUCOSE METER POC (10/17/2024 8:24 AM EDT) Glucose Meter POC 195(H) 70 - 100 mg/dL 10/17/2024 8:25 AM EDT [facility] Sample Type Capillary 10/17/2024 8:25 AM EDT [facility] Patient Status Non-Critical Patient 10/17/2024 8:25 AM EDT [facility] Blood BLOOD SPECIMEN / Unknown 10/17/2024 8:24 AM EDT 10/17/2024 8:25 AM EDT us Igor Lynn MD POINT OF CARE TEST ORDERABLES Fi nal Result [facility] [address] [place], [place] [id number] * (ABNORMAL) BASIC METABOLIC PANEL (10/17/2024 6:41 AM EDT) Pathologist [facility] Sodium 138 136 - 145 mmol/L 10/17/2024 [...] 8:27 AM EDT [facility] Calcium 8.8 8.8 - 10.4 mg/dL 10/17/2024 8:27 AM EDT [facility] Glucose Lvl 203(H) 70 - 99 mg/dL 10/17/2024 8:27 AM EDT [facility] BUN 27(H) 8 - 23 mg/dL 10/17/2024 8:27 AM EDT [facility] Creatinine 0.77 0.67 - 1.30 mg/dL 10/17/2024 8:27 AM EDT [facility] eGFR (CKD-EPIcr 2020) 91 >=60 mL/min/1.7 3 m2 10/17/2024 8:27 AM EDT [employer] Comment:Estimated GFR was ca lculated using the CKD-EPIcr (2020) equation refit without race. The equation is recommended by the National Kidney Foundation - [place] [employer] of Nephrology Task Force. Blood VENOUS BLOOD / Unknown Venipuncture / Unknown 10/17/2024 6:41 AM EDT 10/17/2024 7:51 AM EDT us Igor Lynn MD CHEMISTRY ORDERABLES Final Resul t Performing Organization Address [facility] Co de Phone Number [employer] [address] [facility], [place] [address] * (ABNORMAL) GLUCOSE METER POC (10/16/2024 10:14 PM EDT) Glucose Meter POC 297(H) 70 - 100 mg/dL 10/16/2024 10:17 PM EDT [facility] Sample Type Capillary 10/16/2024 10:17 PM EDT [facility] Patient Status Non-Critical Patient 10/16/2024 10:17 PM EDT [facility] Blood BLOOD SPECIMEN / Unknown 10/16/2024 10:14 PM EDT 10/16/2024 10:17 PM EDT us Igor Lynn MD POINT OF CARE TEST ORDERABLES Fi nal Result Performing Organization Address [facility] de Phone Number [address] [address] * (ABNORMAL) GLUCOSE METER POC (10/16/2024 5:44 PM EDT) Glucose Meter POC 291(H) 70 - 100 mg/dL 10/16/2024 5:46 PM EDT [facility] Sample Type Capillary 10/16/2024 5:46 PM EDT [facility] Patient Status Non-Critical Patient 10/16/2024 5:46 PM EDT [facility] Blood BLOOD SPECIMEN / Unknown 10/16/2024 5:44 PM EDT 10/16/2024 5:46 PM EDT us Igor Lynn MD POINT OF CARE TEST ORDERABLES Fi nal Result [facility] [address] [place] [address] * (ABNORMAL) BASIC METABOLIC PANEL (10/16/2024 1:47 PM EDT) Sodium 133(L) 136 - 145 mmol/L 10/16/2024 [...] - 1.30 mg/dL 10/16/2024 5:13 PM EDT [facility] eGFR (CKD-EPIcr 2020) 94 >=60 mL/min/1.7 3 m2 10/16/2024 5:13 PM EDT [facility] Comment:Estimated GFR was ca lculated using the CKD-EPIcr (2020) equation refit without race. The equation is recommended by the National Kid[employer] - [place] [employer] of Nephrology Task Force. Blood VENOUS BLOOD / Unknown Venipuncture / Unknown 10/16/2024 1:47 PM EDT 10/16/2024 1:49 PM EDT Igor Lynn MD CHEMISTRY ORDERABLES Final Resul t Performing Organization Address City/[facility]/ZIP Co de Phone Number [facility] [email or web address] [facility] [address] [facility] , [place] [address] * VANCOMYCIN LEVEL AUC2 (10/16/2024 1:47 PM EDT) Pathologist [facility] Vancomycin AUC2 22.0 mcg/mL 2:20 PM EDT [facility] [email or web address] [facility] Blood VENOUS BLOOD / Unknown Venipuncture / Unknown 10/16/2024 1:47 PM EDT 10/16/2024 1:49 PM EDT Ahsan Parra Jr., MD CHEMISTRY ORDERABLES F inal Result Performing Organization Address [facility] Co de Phone Number [facility] [email or web address] [address] , [place] [address] * (ABNORMAL) GLUCOSE METER POC (10/16/2024 1:06 PM EDT) [facility] Glucose Meter POC 299(H) 70 - 100 mg/dL 10/16/2024 1:08 PM EDT [facility] Sample Type Capillary 10/16/2024 1:08 PM EDT [facility] Patient Status Non-Critical Patient 10/16/2024 1:08 PM EDT [facility] Blood BLOOD SPECIMEN / Unknown 10/16/2024 1:06 PM EDT 10/16/2024 1:08 PM EDT Igor Lynn MD POINT OF CARE TEST ORDERABLES Fi nal Result Performing Organization Address City/[facility]/ZIP Co de Phone Number [facility] [address] [place] [phone] * VANCOMYCIN LEVEL AUC1 (10/16/2024 8:36 AM EDT) Pathologist [facility] Vancomycin AUC1 32.2 mcg/mL 9:00 AM EDT [facility] Blood VENOUS BLOOD / Unknown Venipuncture / Unknown 10/16/2024 8:36 AM EDT 10/16/2024 8:40 AM EDT Ahsan Parra Jr., MD CHEMISTRY ORDERABLES F inal Result Performing Organization Address City/[facility]/ZIP Co de Phone Number [address] [address] * (ABNORMAL) GLUCOSE METER POC (10/16/2024 8:24 AM EDT) Glucose Meter POC 295(H) 70 - 100 mg/dL 10/16/2024 8:26 AM EDT [facility] Sample Type Capillary 10/16/2024 8:26 AM EDT [facility] Patient Status Non-Critical Patient 10/16/2024 8:26 AM EDT [facility] Blood BLOOD SPECIMEN / Unknown 10/16/2024 8:24 AM EDT 10/16/2024 8:26 AM EDT Igor Lynn MD POINT OF CARE TEST ORDERABLES Fi nal Result Performing Organization Address [facility] de Phone Number [place] [phone] * (ABNORMAL) GLUCOSE METER POC (10/15/2024 10:15 PM EDT) Glucose Meter POC 346(H) 70 - 100 mg/dL 10/15/2024 10:17 PM EDT [facility] Sample Type Capillary 10/15/2024 10:17 PM EDT [facility] Patient Status Non-Critical Patient 10/15/2024 10:17 PM EDT [facility] Blood BLOOD SPECIMEN / Unknown 10/15/2024 10:15 PM EDT 10/15/2024 10:17 PM EDT us Igor Lynn MD POINT OF CARE TEST ORDERABLES Fi nal Result Performing Organization Address City/[facility]/ZIP Co de Phone Number [address] [address] * (ABNORMAL) GLUCOSE METER POC (10/15/2024 5:44 PM EDT) Glucose Meter POC 412(H) 70 - 100 mg/dL 10/15/2024 5:46 PM EDT [facility] Sample Type Capillary 10/15/2024 5:46 PM EDT [facility] Patient Status Non-Critical Patient 10/15/2024 5:46 PM EDT [facility] Blood BLOOD SPECIMEN / Unknown 10/15/2024 5:44 PM EDT 10/15/2024 5:46 PM EDT Ahsan Parra Jr., MD POINT OF CARE TEST ORD ERABLES Final Result Performing Organization Address City/[facility] Co de Phone Number [address] [address] * (ABNORMAL) GLUCOSE METER POC (10/15/2024 1:33 PM EDT) Glucose Meter POC 388(H) 70 - 100 mg/dL 10/15/2024 1:34 PM EDT [facility] Sample Type Capillary 10/15/2024 1:34 PM EDT [facility] Patient Status Non-Critical Patient 10/15/2024 1:34 PM EDT [facility] Blood BLOOD SPECIMEN / Unknown 10/15/2024 1:33 PM EDT 10/15/2024 1:34 PM EDT Ahsan Parra Jr., MD POINT OF CARE TEST ORD ERABLES Final Result [address] [address] * VANCOMYCIN LEVEL AUC2 (10/15/2024 12:40 PM EDT) Vancomycin AUC2 9.4 mcg/mL 1:06 PM EDT [facility] Blood VENOUS BLOOD / Unknown Venipuncture / Unknown 10/15/2024 12:40 PM EDT 10/15/2024 12:44 PM EDT Ahasn Parra Jr., MD CHEMISTRY ORDERABLES F inal Result Performing Organization Address [facility] [place] [address] * (ABNORMAL) GLUCOSE METER POC (10/15/2024 8:47 AM EDT) Glucose Meter POC 301(H) 70 - 100 mg/dL 10/15/2024 8:48 AM EDT [facility] Sample Type Capillary 10/15/2024 8:48 AM EDT [facility] Patient Status Non-Critical Patient 10/15/2024 8:48 AM EDT [facility] Blood BLOOD SPECIMEN / Unknown 10/15/2024 8:47 AM EDT 10/15/2024 8:48 AM EDT Ahsan Parra Jr., MD POINT OF CARE TEST ORD ERABLES Final Result Performing Organization Address [facility] Phone Number [place] [phone] * VANCOMYCIN LEVEL AUC1 (10/15/2024 6:09 AM EDT) [facility] Vancomycin AUC1 11.8 mcg/mL 7:08 AM EDT [employer] Blood VENOUS BLOOD / Unknown Venipuncture / Unknown 10/15/2024 6:09 AM EDT 10/15/2024 6:17 AM EDT Ahsan Parra Jr., MD CHEMISTRY ORDERABLES F inal Result Performing Organization Address City/[facility]/ZIP Co de Phone Number [employer] [address] [place] [address], [address] [place] [phone] * (ABNORMAL) CBC (10/15/2024 6:09 AM EDT) WBC 5.9 3.7 - 10.3 x10(3)/mcL 10/15/2024 6:27 AM EDT [facility] RBC 5.03 4.60 - 6.10 x10(6)/mcL 10/15/2024 6:27 AM EDT [facility] Hgb 14.5 13.7 - 17.5 g/dL 10/15/2024 6:27 AM EDT [facility] Hct 43.6 40.0 - 51.0 % 10/15/2024 6:27 AM EDT [facility] MCV 86.7 80.0 - 100.0 fL 10/15/2024 6:27 AM EDT [facility] MCH 28.8 26.0 - 34.0 pg 10/15/2024 6:27 AM EDT [facility] MCHC 33.3 30.7 - 35.5 g/dL 10/15/2024 6:27 AM EDT [facility] RDW 15.0(H) <=14.9 % 10/15/2024 6:27 AM EDT [facility] Platelet 172 155 - 369 x10(3)/mcL 10/15/2024 6:27 AM EDT [facility] MPV 10.5 8.8 - 12.5 fL 10/15/2024 6:27 AM EDT [facility] [address], [facility] Blood VENOUS BLOOD / Unknown Venipuncture / Unknown 10/15/2024 6:09 AM EDT 10/15/2024 6:17 AM EDT [employer] HEMATOLOGY ORDERABLES Final Result [facility] [address] [facility] , [place] [address] * (ABNORMAL) BASIC METABOLIC PANEL (10/15/2024 6:09 AM EDT) Sodium 133(L) 136 - 145 mmol/L 10/15/2024 7:08 AM EDT [facility] Potassium 4.6 3.5 - 5.0 mmol/L 10/15/2024 7:08 AM EDT [facility] LAB [facility] [place] Chloride 98 98 - 107 mmol/L 10/15/2024 7:08 AM EDT [facility] LAB [facility] [place], [facility] Total CO2 24 22 - 29 mmol/L 10/15/2024 7:08 AM EDT [facility], [facility] Anion Gap 11 7 - 16 mmol/L 10/15/2024 7:08 AM EDT [facility] LAB [facility] [place] Calcium 9.1 8.8 - 10.4 mg/dL 10/15/2024 7:08 AM EDT [facility] [place] Glucose Lvl 306(H) 70 - 99 mg/dL 10/15/2024 7:08 AM EDT [facility] [place] BUN 11 8 - 23 mg/dL 10/15/2024 7:08 AM EDT [facility], [facility] Creatinine 0.55(L) 0.67 - 1.30 mg/dL 10/15/2024 7:08 AM EDT [facility], [facility] eGFR (CKD-EPIcr 2020) 100 >=60 mL/min/1.7 3 m2 10/15/2024 7:08 AM EDT [facility] [place] Comment:Estimated GFR was ca lculated using the CKD-EPIcr (2020) equation refit without race. The equation is recommended by the [employer] - [place] [employer]ph[employer] Task Force. Blood VENOUS BLOOD / Unknown Venipuncture / Unknown 10/15/2024 6:09 AM EDT 10/15/2024 6:17 AM EDT [employer] CHEMISTRY ORDERABLES Final Result [facility], [facility] [address] [facility] , [address] [place] [id number] * (ABNORMAL) GLUCOSE METER POC (10/14/2024 10:23 PM EDT) [facility] Glucose Meter POC 215(H) 70 - 100 mg/dL 10/14/2024 10:25 PM EDT [facility] Sample Type Capillary 10/14/2024 10:25 PM EDT [facility] Patient Status Non-Critical Patient 10/14/2024 10:25 PM EDT [facility] Blood BLOOD SPECIMEN / Unknown 10/14/2024 10:23 PM EDT 10/14/2024 10:25 PM EDT us Ahsan Parra Jr., MD POINT OF CARE TEST ORD ERABLES Final Result Performing Organization Address [facility] [place] [address] * (ABNORMAL) GLUCOSE METER POC (10/14/2024 7:07 PM EDT) Glucose Meter POC 263(H) 70 - 100 mg/dL 10/14/2024 7:09 PM EDT [facility] Sample Type Capillary 10/14/2024 7:09 PM EDT [facility] Patient Status Non-Critical Patient 10/14/2024 7:09 PM EDT [facility] Blood BLOOD SPECIMEN / Unknown 10/14/2024 7:07 PM EDT 10/14/2024 7:09 PM EDT us Ahsan Parra Jr., MD POINT OF CARE TEST ORD ERABLES Final Result Performing Organization Address [facility] [place] [address] * (ABNORMAL) GLUCOSE METER POC (10/14/2024 3:27 PM EDT) Glucose Meter POC 245(H) 70 - 100 mg/dL 10/14/2024 3:37 PM EDT [facility] Sample Type Capillary 10/14/2024 3:37 PM EDT [facility] Patient Status Non-Critical Patient 10/14/2024 3:37 PM EDT [facility] Blood BLOOD SPECIMEN / Unknown 10/14/2024 3:27 PM EDT 10/14/2024 3:37 PM EDT us Ahsan Parra Jr., MD POINT OF CARE TEST ORD ERABLES Final Result LISA [address] [address] * [facility] LOWER EXTREMITY ARTERIAL DUPLEX COMPLETE (10/14/2024 [...] left lower extremity. 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 * Left DBI [...] left lower extremity. 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 * No color flow/spectral Doppler with intraluminal plaque notedthroughout the left anterior tibial artery consistent with a total occlusion. us [employer] IMG VASCULAR ORDERABLES Fin al Result * (ABNORMAL) GLUCOSE METER POC (10/14/2024 10:26 AM EDT) Glucose Meter POC 185(H) 70 - 100 mg/dL 10/14/2024 10:27 AM EDT [facility] Sample Type Capillary 10/14/2024 10:27 AM EDT [facility] Patient Status Non-Critical Patient 10/14/2024 10:27 AM EDT [facility] Blood BLOOD SPECIMEN / Unknown 10/14/2024 10:26 AM EDT 10/14/2024 10:27 AM EDT Ahsan Parra Jr., MD POINT OF CARE TEST ORD ERABLES Final Result Performing Organization Address [facility] [place] [address] * (ABNORMAL) GLUCOSE METER POC (10/14/2024 8:33 AM EDT) Glucose Meter POC 167(H) 70 - 100 mg/dL 10/14/2024 8:34 AM EDT [facility] Sample Type Capillary 10/14/2024 8:34 AM EDT [facility] Patient Status Non-Critical Patient 10/14/2024 8:34 AM EDT [facility] Blood BLOOD SPECIMEN / Unknown 10/14/2024 8:33 AM EDT 10/14/2024 8:34 AM EDT Ahsan Parra Jr., MD POINT OF CARE TEST ORD ERABLES Final Result Performing Organization Address City/[facility]/ZIP Co de Phone Number [facility] [address] [place] [address] * FUNGUS CULTURE (NO STAIN) (10/14/2024 8:14 AM EDT) Culture No growth of fungus at 4 weeks. 11/10/2024 3:32 PM EDT [facility] [employer] STRUCTURE OF RIGHT FOOT / Unknown 10/14/2024 8:14 AM EDT 10/14/2024 8:35 AM EDT [employer] DPM MICROBIOLOGY - GENERAL ORDCarmenza MERCADO Final Result [facility] [employer] [address], [place] [address] * (ABNORMAL) WOUND CULTURE (STAIN INCLUDED) (10/14/2024 8:14 AM EDT) Culture Positive Growth(A) 10/18/2024 9:41 AM EDT [employer] Culture Sparse growth of Staphylococcus aureus SUSCEPTIB ILITY RESULT 10/18/2024 9:41 AM EDT [employer] Comment:PBP2a: a rapid assay that aids in identifying MRSA by detecting the protein that confers resistance to methicillin. A negative result does not exclude methicillin resistance due to other mechanisms. PBP2a test Negative 10/18/2024 9:41 AM EDT [employer] Stain Few WBCs 10/18/2024 9:41 AM EDT [employer] Stain No organisms seen 025 9:41 AM EDT [employer]ab STRUCTURE OF RIGHT FOOT / Unknown [...] ciprofloxacin should also not be used alone. [employer] MICROBIOLOGY - GENERAL ORDE JESS Final Result [employer] [address] [place] [address] , [place] [address] * ANAEROBIC CULTURE (NO STAIN) (10/14/2024 8:14 AM EDT) Culture No anaerobic growth at 5 days. 10/19/2024 11:05 AM EDT [employer] STRUCTURE OF RIGHT FOOT / Unknown 10/14/2024 8:14 AM EDT 10/14/2024 8:35 AM EDT [employer] MICROBIOLOGY - GENERAL ORDE JESS Final Result Performing Organization Address City/[facility]/ZIP Co de Phone Number [employer] [address] [place] [address] , [place] [address] * (ABNORMAL) GLUCOSE METER POC (10/14/2024 7:17 AM EDT) [facility] Glucose Meter POC 184(H) 70 - 100 mg/dL 10/14/2024 7:19 AM EDT [facility] Sample Type Capillary 10/14/2024 7:19 AM EDT [facility] Patient Status Non-Critical Patient 10/14/2024 7:19 AM EDT [facility] Blood BLOOD SPECIMEN / Unknown 10/14/2024 7:17 AM EDT 10/14/2024 7:19 AM EDT Ahsan Parra Jr., MD POINT OF CARE TEST ORD ERABLES Final Result [facility] [address] [place] [id number] * (ABNORMAL) CBC (10/14/2024 5:39 AM EDT) [facility] WBC 6.1 3.7 - 10.3 x10(3)/mcL 10/14/2024 6:02 AM EDT [facility] RBC 4.46(L) 4.60 - 6.10 x10(6)/mcL 10/14/2024 6:02 AM EDT [facility] Hgb 13.1(L) 13.7 - 17.5 g/dL 10/14/2024 6:02 AM EDT [facility] Hct 40.5 40.0 - 51.0 % 10/14/2024 6:02 AM EDT [facility] MCV 90.8 80.0 - 100.0 fL 10/14/2024 6:02 AM EDT [facility] MCH 29.4 26.0 - 34.0 pg 10/14/2024 6:02 AM EDT [facility] MCHC 32.3 30.7 - 35.5 g/dL 10/14/2024 6:02 AM EDT [facility] RDW 15.3(H) <=14.9 % 10/14/2024 6:02 AM EDT [facility] Platelet 144(L) 155 - 369 x10(3)/mcL 10/14/2024 6:02 AM EDT [facility] MPV 10.3 8.8 - 12.5 fL 10/14/2024 6:02 AM EDT [facility] Blood VENOUS BLOOD / Unknown Venipuncture / Unknown 10/14/2024 5:39 AM EDT 10/14/2024 5:43 AM EDT us [employer] D[employer] HEMATOLOGY ORDERABLES Final Result [facility] [address] [facility] , [place] [address] * (ABNORMAL) BASIC METABOLIC PANEL (10/14/2024 5:39 AM EDT) Sodium 133(L) 136 - 145 mmol/L 10/14/2024 7:31 AM EDT [facility] Potassium 5.0 3.5 - 5.0 mmol/L 10/14/2024 7:31 AM EDT [facility] Chloride 103 98 - 107 mmol/L 10/14/2024 7:31 AM EDT [facility] Total CO2 18(L) 22 - 29 mmol/L 10/14/2024 7:31 AM EDT [facility] Anion Gap 12 7 - 16 mmol/L 10/14/2024 7:31 AM EDT [facility] Calcium 8.7(L) 8.8 - 10.4 mg/dL 10/14/2024 7:31 AM EDT [facility] Glucose Lvl 191(H) 70 - 99 mg/dL 10/14/2024 7:31 AM EDT [facility] BUN 12 8 - 23 mg/dL 10/14/2024 7:31 AM EDT [facility] Creatinine 0.57(L) 0.67 - 1.30 mg/dL 10/14/2024 7:31 AM EDT [facility] eGFR (CKD-EPIcr 2020) 99 >=60 mL/min/1.7 3 m2 10/14/2024 7:31 AM EDT [employer] Comment:Estimated GFR was ca lculated using the CKD-EPIcr (2020) equation refit without race. The equation is recommended by the National Kid[employer] - [place] [employer] of Nephrology Task Force. Blood VENOUS BLOOD / Unknown Venipuncture / Unknown 10/14/2024 5:39 AM EDT 10/14/2024 5:43 AM EDT us [employer] D[employer] CHEMISTRY ORDERABLES Final Result Performing Organization Address [facility] Co de Phone Number [employer] [address] [facility], [place] [address] * (ABNORMAL) GLUCOSE METER POC (10/13/2024 10:46 PM EDT) Glucose Meter POC 231(H) 70 - 100 mg/dL 10/13/2024 10:47 PM EDT [facility] Sample Type Capillary 10/13/2024 10:47 PM EDT [facility] Patient Status Non-Critical Patient 10/13/2024 10:47 PM EDT [facility] Blood BLOOD SPECIMEN / Unknown 10/13/2024 10:46 PM EDT 10/13/2024 10:47 PM EDT us Ahsan Parra Jr., MD POINT OF CARE TEST ORD ERABLES Final Result Performing Organization Address [facility] de Phone Number [place] [phone] * (ABNORMAL) GLUCOSE METER POC (10/13/2024 6:50 PM EDT) Glucose Meter POC 216(H) 70 - 100 mg/dL 10/13/2024 6:52 PM EDT [facility] Sample Type Capillary 10/13/2024 6:52 PM EDT [facility] Patient Status Non-Critical Patient 10/13/2024 6:52 PM EDT [facility] Blood BLOOD SPECIMEN / Unknown 10/13/2024 6:50 PM EDT 10/13/2024 6:52 PM EDT us Ahsan Parra Jr., MD POINT OF CARE TEST ORD ERABLES Final Result [facility] [address] [place] [address] * (ABNORMAL) GLUCOSE METER POC (10/13/2024 2:15 PM EDT) Glucose Meter POC 250(H) 70 - 100 mg/dL 10/13/2024 2:16 PM EDT [facility] Sample Type Capillary 10/13/2024 2:16 PM EDT [facility] Patient Status Non-Critical Patient 10/13/2024 2:16 PM EDT [facility] Blood BLOOD SPECIMEN / Unknown 10/13/2024 2:15 PM EDT 10/13/2024 2:16 PM EDT Ahsan Parra Jr., MD POINT OF CARE TEST ORD ERABLES Final Result Performing Organization Address [facility] [place] [address] * (ABNORMAL) GLUCOSE METER POC (10/13/2024 9:26 AM EDT) Glucose Meter POC 174(H) 70 - 100 mg/dL 10/13/2024 9:28 AM EDT [facility] Sample Type Capillary 10/13/2024 9:28 AM EDT [facility] Patient Status Non-Critical Patient 10/13/2024 9:28 AM EDT [facility] Blood BLOOD SPECIMEN / Unknown 10/13/2024 9:26 AM EDT 10/13/2024 9:28 AM EDT Ahsan Parra Jr., MD POINT OF CARE TEST ORD ERABLES Final Result [facility] [address] [place] [phone] * (ABNORMAL) CBC (10/13/2024 6:32 AM EDT) Pathologist [facility] WBC 6.3 3.7 - 10.3 x10(3)/mcL 10/13/2024 [...] 6:32 AM EDT 10/13/2024 7:13 AM EDT us [employer] HEMATOLOGY ORDERABLES Final Result [facility] [address] [facility] , [place] [address] * (ABNORMAL) BASIC METABOLIC PANEL (10/13/2024 6:32 AM EDT) Sodium 136 136 - 145 mmol/L 10/13/2024 7:46 AM EDT [facility], [facility] Potassium 4.8 3.5 - 5.0 mmol/L 10/13/2024 7:46 AM EDT [facility], [facility] Chloride 104 98 - 107 mmol/L 10/13/2024 7:46 AM EDT [facility], [facility] Total CO2 24 22 - 29 mmol/L 10/13/2024 7:46 AM EDT [facility] Anion Gap 8 7 - 16 mmol/L 10/13/2024 7:46 AM EDT [facility], [facility] Calcium 8.5(L) 8.8 - 10.4 mg/dL 10/13/2024 7:46 AM EDT [facility], [facility] Glucose Lvl 195(H) 70 - 99 mg/dL 10/13/2024 7:46 AM EDT [facility] LAB [facility] [place], [facility] BUN 17 8 - 23 mg/dL 10/13/2024 7:46 AM EDT [facility] [place], [facility] Creatinine 0.75 0.67 - 1.30 mg/dL 10/13/2024 7:46 AM EDT [facility] [place], [facility] eGFR (CKD-EPIcr 2020) 91 >=60 mL/min/1.7 3 m2 10/13/2024 7:46 AM EDT [facility], [facility] Comment:Estimated GFR was ca lculated using the CKD-EPIcr (2020) equation refit without race. The equation is recommended by the National Kidney Foundation - [place] [employer] of Nephrology Task Force. Blood VENOUS BLOOD / Unknown Venipuncture / Unknown 10/13/2024 6:32 AM EDT 10/13/2024 7:13 AM EDT us [employer] CHEMISTRY ORDERABLES Final Result [facility], [facility] [address] [facility] , [place] [address] * REPEAT LACTIC ACID (10/13/2024 12:36 AM EDT) Lactic Acid 1.6 0.5 - 1.9 mmol/L 10/13/2024 12:53 AM EDT [facility] Blood VENOUS BLOOD / Unknown Venipuncture / Unknown 10/13/2024 12:36 AM EDT 10/13/2024 12:40 AM EDT us Nuno Eaton MD CHEMISTRY ORDERABLES Final Resul t Performing Organization Address [facility] Co de Phone Number [facility] [address] [place] [address] * (ABNORMAL) REPEAT LACTIC ACID (10/12/2024 10:48 PM EDT) Lactic Acid 2.0(H) 0.5 - 1.9 mmol/L 10/12/2024 11:06 PM EDT [facility] Blood VENOUS BLOOD / Unknown Venipuncture / Unknown 10/12/2024 10:48 PM EDT 10/12/2024 10:52 PM EDT us Nuno Eaton MD CHEMISTRY ORDERABLES Final Resul t Performing Organization Address [facility] Co de Phone Number [facility] [address] [place] [phone] * (ABNORMAL) HEMOGLOBIN A1C (10/12/2024 9:12 PM EDT) Hgb A1C 7.9(H) 4.2 - 5.6 % 10/12/2024 10:19 PM EDT [facility] [employer] [employer]. Avg Glucose 180 mg/dL 10/12/2024 10:19 PM EDT [facility] [employer] [employer] Blood VENOUS BLOOD / Unknown Venipuncture / Unknown 10/12/2024 9:12 PM EDT 10/12/2024 9:17 PM EDT Narrative [facility] [employer] [employer] - 10/12/2024 10:19 PM EDT REFERENCE RANGE: Normal: 4.0-5.6% Pre-diabetes: 5.7-6.4% Provisional diagnosis of diabetes: >6.4% Hgb F>10% and anything which shortens red cell survival, such as hemolytic anemia, or unstable hemoglobin variants such as HbSS, HbSC, or HbCC, will lower the HbA1c value associated with a given level of glycemic control. Thomas Aguiar MD (Ronny) CHEMISTRY ORDER MARKIE Final Result [facility] [employer] [address] [facility] , [place] [address] * (ABNORMAL) C-REACTIVE PROTEIN (10/12/2024 9:12 PM EDT) [facility] CRP 28.69(H) <=5.00 mg/L 10/12/2024 9:47 PM EDT [facility] [employer] Blood VENOUS BLOOD / Unknown Venipuncture / Unknown 10/12/2024 9:12 PM EDT 10/12/2024 9:17 PM EDT us Thomas Aguiar MD (Ronny) CHEMISTRY ORDER MARKIE Final Result Performing Organization Address [facility] Co de Phone Number [facility] [employer] [address] [facility] , [place] [address] * SEDIMENTATION RATE AUTOMATED (10/12/2024 9:12 PM EDT) [facility] Sed Rate 15 0 - 20 mm/hr 10/12/2024 9:30 PM EDT [employer] Blood VENOUS BLOOD / Unknown Venipuncture / Unknown 10/12/2024 9:12 PM EDT 10/12/2024 9:17 PM EDT Thomas Aguiar MD (Ronny) HEMATOLOGY ORDE RABLES Final Result Performing Organization Address City/[facility]/ZIP Co de Phone Number [facility] [employer] [facility] [address] [facility] , [place] [address] * (ABNORMAL) REPEAT LACTIC ACID (10/12/2024 9:12 PM EDT) [facility] Lactic Acid 2.6(H) 0.5 - 1.9 mmol/L 10/12/2024 9:42 PM EDT [facility] [employer] [employer] Blood VENOUS BLOOD / Unknown Venipuncture / Unknown 10/12/2024 9:12 PM EDT 10/12/2024 9:17 PM EDT Nuno Eaton MD CHEMISTRY ORDERABLES Final Resul t Performing Organization Address City/[facility]/ZIP Co de Phone Number [facility] [place], [facility] [address] [facility], [place] [address] * (ABNORMAL) GLUCOSE METER POC (10/12/2024 8:20 PM EDT) [facility] Glucose Meter POC 130(H) 70 - 100 mg/dL 10/12/2024 8:22 PM EDT [facility] Sample Type Capillary 10/12/2024 8:22 PM EDT [facility] Patient Status Non-Critical Patient 10/12/2024 8:22 PM EDT [facility] Blood BLOOD SPECIMEN / Unknown 10/12/2024 8:20 PM EDT 10/12/2024 8:22 PM EDT Ahsan Parra Jr., MD POINT OF CARE TEST ORD ERABLES Final Result Performing Organization Address City/[facility]/ZIP Co de Phone Number [facility] 1 [place] [phone] * (ABNORMAL) BLOOD GAS, VENOUS (10/12/2024 6:50 PM EDT) pH Venous 7.28(L) 7.32 - 7.42 pH 10/12/2024 6:58 PM EDT [facility] [place], [facility] pCO2 Venous 61(H) 41 - 51 mmHg 10/12/2024 6:58 PM EDT [facility] [place], [facility] pO2 Venous 55(H) 25 - 40 mmHg 10/12/2024 6:58 PM EDT [facility] [place] Comment:Interpret with cauti on. Not recommended to evaluate patient's oxygenation status. Base Excess Jesus 0.0 mmol/L 6:58 PM EDT [facility] Hco3 Venous 27.7 24.0 - 28.0 mmol/L 10/12/2024 6:58 PM EDT [facility] [place], [facility] CO2 Total Jesus 25 25 - 29 mmol/L 10/12/2024 6:58 PM EDT [facility] [place], [facility] O2 Sat. Venous 83.8(H) 40.0 - 70.0 % 10/12/2024 6:58 PM EDT [facility] [place], [facility] [employer]ired O2 ra 10/12/2024 6:58 PM EDT [facility] [place] Blood VENOUS BLOOD / Unknown Venipuncture / Unknown 10/12/2024 6:50 PM EDT 10/12/2024 6:54 PM EDT us Nuno Eaton MD CHEMISTRY ORDERABLES Final Resul t [facility] [place], [facility] [address] [facility] , [place] [address] * PROCALCITONIN (10/12/2024 6:10 PM EDT) Procalcitonin 0.11 <=0.49 ng/mL 10/12/2024 7:09 PM EDT [facility], [facility] Blood VENOUS BLOOD / Unknown Venipuncture / Unknown 10/12/2024 6:10 PM EDT 10/12/2024 6:22 PM EDT Narrative [facility] - 10/12/2024 7:09 PM EDT Procalcitonin [...] ORDERABLES Final Resul t Performing Organization Address [facility] Co de Phone Number [employer] [address] [facility] , [place] [address] * BLOOD CULTURE (NO STAIN) (10/12/2024 6:10 PM EDT) Culture Result No Growth at 120 hours. BLOOD CULTURE (NO STAIN) 10/17/2024 8:00 PM EDT [facility] [employer] Blood VENOUS BLOOD / Unknown Venipuncture / Unknown 10/12/2024 6:10 PM EDT 10/12/2024 6:17 PM EDT Result Joi Eaton MD MICROBIOLOGY - GENERAL ORDERABLE S Final Result Performing Organization Address [facility] de Phone Number [employer] [address] [facility] , [place] [address] * BLOOD CULTURE (NO STAIN) (10/12/2024 6:10 PM EDT) Culture Result No Growth at 120 hours. BLOOD CULTURE (NO STAIN) 10/17/2024 8:00 PM EDT [employer] Blood VENOUS BLOOD / Unknown Venipuncture / Unknown 10/12/2024 6:10 PM EDT 10/12/2024 6:17 PM EDT Result Joi Eaton MD MICROBIOLOGY - GENERAL ORDERABLE S Final Result Performing Organization Address [facility] Co de Phone Number [employer] [address] [facility] , [place] [address] * (ABNORMAL) LACTIC ACID (10/12/2024 6:10 PM EDT) Lactic Acid 3.1(H) 0.5 - 1.9 mmol/L 10/12/2024 6:28 PM EDT [facility] Blood VENOUS BLOOD / Unknown Venipuncture / Unknown 10/12/2024 6:10 PM EDT 10/12/2024 6:15 PM EDT Nuno Eaton MD CHEMISTRY ORDERABLES Final Resul t [facility] [address] [place] [address] * (ABNORMAL) BASIC METABOLIC PANEL (10/12/2024 6:10 PM EDT) Sodium 137 136 - 145 mmol/L 10/12/2024 6:32 PM EDT [facility] Potassium 5.4(H) 3.5 - 5.0 mmol/L 10/12/2024 6:32 PM EDT [facility] Chloride 99 98 - 107 mmol/L 10/12/2024 6:32 PM EDT [facility] Total CO2 24 22 - 29 mmol/L 10/12/2024 6:32 PM EDT [facility] Anion Gap 14 7 - 16 mmol/L 10/12/2024 6:32 PM EDT [facility] Calcium 9.2 8.8 - 10.4 mg/dL 10/12/2024 6:32 PM EDT [facility] Glucose Lvl 173(H) 70 - 99 mg/dL 10/12/2024 6:32 PM EDT [facility] BUN 21 8 - 23 mg/dL 10/12/2024 6:32 PM EDT [facility] Creatinine 0.97 0.67 - 1.30 mg/dL 10/12/2024 6:32 PM EDT [facility] eGFR (CKD-EPIcr 2020) 79 >=60 mL/min/1.7 3 m2 10/12/2024 6:32 PM EDT [facility] Comment:Estimated GFR was ca lculated using the CKD-EPIcr (2020) equation refit without race. The equation is recommended by the National Kid[employer] - [place] [employer] of Nephrology Task Force. Blood VENOUS BLOOD / Unknown Venipuncture / Unknown 10/12/2024 6:10 PM EDT 10/12/2024 6:15 PM EDT us Nuno Eaton MD CHEMISTRY ORDERABLES Final Resul t [facility] [address] [place] [address] * (ABNORMAL) CBC WITH DIFF (10/12/2024 6:10 PM EDT) WBC 7.0 3.7 - 10.3 x10(3)/mcL 10/12/2024 6:19 PM EDT [facility] RBC 5.01 4.60 - 6.10 x10(6)/mcL 10/12/2024 6:19 PM EDT [facility] Hgb 14.9 13.7 - 17.5 g/dL 10/12/2024 6:19 PM EDT [facility] Hct 46.0 40.0 - 51.0 % 10/12/2024 6:19 PM EDT [facility] MCV 91.8 80.0 - 100.0 fL 10/12/2024 6:19 PM EDT [facility] MCH 29.7 26.0 - 34.0 pg 10/12/2024 6:19 PM EDT [facility] MCHC 32.4 30.7 - 35.5 g/dL 10/12/2024 6:19 PM EDT [facility] RDW 15.8(H) <=14.9 % 10/12/2024 6:19 PM EDT [facility] Platelet 202 155 - 369 x10(3)/mcL 10/12/2024 6:19 PM EDT [facility] MPV 11.2 8.8 - 12.5 fL 10/12/2024 6:19 PM EDT [facility] Neut Percent 64.1 % 10/12/2024 6:19 PM EDT [facility] Comment:Neutrophils equals s egs plus bands Imm Gran% 0.3 % 10/12/2024 6:19 PM EDT [facility] Comment:Automated count of m etamyelocytes, myelocytes and promyelocytes. Lymph Percent 23.5 % 10/12/2024 6:19 PM EDT [facility] Irwin Percent 8.9 % 10/12/2024 6:19 PM EDT [facility] Eos Percent 2.3 % 10/12/2024 6:19 PM EDT [facility] Baso Percent 0.9 % 10/12/2024 6:19 PM EDT [facility] Neut # 4.5 1.6 - 6.1 x10(3)/[facility] 10/12/2024 6:19 PM EDT [facility] Comment:Neutrophils equals s egs plus bands IMMGRAN# 0.0 0.0 - 0.1 x10(3)/[facility] 10/12/2024 6:19 PM EDT [facility] Comment:Automated count of m etamyelocytes, myelocytes and promyelocytes. An absolute IG <0.1 is reported as 0.0. Lymph # 1.6 1.2 - 3.9 x10(3)/[facility] 10/12/2024 6:19 PM EDT [facility] Irwin # 0.6 0.3 - 0.9 x10(3)/[facility] 10/12/2024 6:19 PM EDT [facility] Eos# 0.2 0.0 - 0.5 x10(3)/[facility] 10/12/2024 6:19 PM EDT [facility] Baso # 0.1 0.0 - 0.1 x10(3)/[facility] 10/12/2024 6:19 PM EDT [facility] Blood VENOUS BLOOD / Unknown Venipuncture / Unknown 10/12/2024 6:10 PM EDT 10/12/2024 6:15 PM EDT us Nuno Eaton MD HEMATOLOGY ORDERABLES Final Resu lt [facility] [address] [place], [place] [id number] * XR FOOT BILATERAL AP AND LATERAL [...] bladder, part unspecified 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 CAD in [place] artery Coronary atherosclerosis of [place] coronary artery Major depressive disorder, single episode, [...] other specified manifestations, not stated as uncontrolled Diabetic foot infection (HCC) Type II or unspecified type diabetes mellitus with other specified manifestations, not stated as uncontrolled documented in this encounter Admitting Diagnoses Diagnosis Diabetic foot infection (HCC) Type II or unspecified type diabetes mellitus with other specified manifestations, not stated as uncontrolled documented in this encounter Administered Medications Inactive Administered Medications - up to 1 most recent administrations Medication Order MAR Action Action Date Dose Rate Site acetaminophen (TYLENOL) tablet 650 mg 650 mg, Oral, EVERY 4 HOURS PRN, Starting on Tue10/12/24 at 1932, Until [place] 10/25/24 at 2018, Pain, Headaches, Fever, Maximum adult dose of acetaminophen is 4000 mg from all sources in 24 hours. amLODIPine (NORVASC) tablet 5 mg 5 mg, Oral, 2 TIMES DAILY, First dose on 10/13/24 at 0130, Until Discontinued Given 10/25/2024 8:15 [...] Given 10/24/2024 9:40 PM EDT 40 mg cephALEXin (KEFLEX) capsule 500 mg 500 mg, Oral, EVERY 6 HOURS SCHEDULED (4 times per day), 40 doses, First dose on Tue10/17/24 at 1400, Last dose on Tue10/27/24 at 0600, Reason for Therapy: Infection Documented, Indication: DFI/osteomyelitis, Skin/soft tissue Given 10/25/2024 11:47 AM EDT 500 mg clopidogreL (PLAVIX) tablet 75 mg 75 mg, Oral, DAILY, First dose on Tue10/23/24 at 0900, Until Discontinued Given 10/25/2024 8:15 AM EDT 75 mg dextrose 50 % solution 25 mL 25 [...] Given 10/25/2024 8:15 AM EDT 100 mg ENSURE High Protein oral supplement 1 Each 1 Each (1 Box), Oral, EVERY MORNING (NUTR), First dose on Tue10/24/24 at 0900, Until Discontinued, Administer orally. Do not administer if NPO or on clear liquid diet. Not for IV use. Supplied by [facility] Given 10/24/2024 9:00 AM EDT 1 Each glucagon (GLUCAGEN) injection 1 mg 1 mg, [...] 25 mg insulin aspart U-100 (NovoLOG) injection 1-15 Units [...] Code = BLACK [employer] Waste Container Given 10/25/2024 9:20 AM EDT 2 Units Left Arm insulin aspart U-100 (NovoLOG) injection 6 [...] Left Arm insulin glargine U-100 (LANTUS) injection 45 Units [...] 7:00 PM EDT 45 Units Left Arm isosorbide mononitrate (IMDUR) CR tablet 30 mg 30 mg, Oral, NIGHTLY, First dose on Tue10/13/24 at 0000, Until Discontinued Given 10/24/2024 9:40 PM EDT 30 mg lidocaine-PF 1% (5 mL), BUPivacaine-PF 0.5% (5 mL) in 10 mL syringe 10 mL, Injection, ONCE INTRAPROCEDURE, 1 dose, On 10/14/24 at 0600, Syringe 3 of 3 Surgical use only. Not for intravenous injection, Intra-op Given 10/14/2024 8:06 AM EDT 20 mL lisinopriL (PRINIVIL;ZESTril) tablet 20 mg 20 mg, Oral, DAILY, First dose (after last modification) on Mon /18/25 at 0900, Until Discontinued, +++ACEI Medication+++ Given 10/25/2024 8:15 AM EDT 20 mg metoprolol (LOPRESSOR) tablet 50 mg 50 mg, Oral, 2 TIMES DAILY, First dose on 10/13/24 at 0900, Until Discontinued, Hold for HR <60 Preferably taken with or immediately following meals. Take consistently with relation to food. Given 10/24/2024 9:41 PM EDT 50 mg miconazole (MICATIN) 2 % powder Topical, 2 TIMES DAILY, 84 doses, First dose on Tue10/14/24 at 0900, Last dose on [facility] 11/24/24 at 2100, Application site: groin/coccyx Given 10/25/2024 8:17 AM EDT morphine (MS CONTIN) CR tablet 45 mg 45 mg, Oral, EVERY 12 HOURS SCHEDULED (2 times per day), First dose on Tue10/13/24 at 0900, Until Discontinued, Do Not Crush Or Chew Given 10/25/2024 8:15 AM EDT 45 mg ondansetron (ZOFRAN) injection 4 mg 4 mg, Intravenous, EVERY 4 HOURS PRN, Starting on Tue10/12/24 at 1933, Until Milvia 10/25/24 at 2018, Nausea, Vomiting pregabalin (LYRICA) capsule 300 mg 300 mg, Oral, 2 TIMES DAILY, First dose (after last modification) on Tue10/13/24 at 0900, Until Discontinued Given 10/25/2024 8:15 AM EDT 300 mg sodium chloride 0.9% IV line flush 20-50 mL 20-50 mL, Intravenous, at 150-600 mL/hr, PRN, Starting on Tue10/14/24 at 1730, Until Milvia 10/25/24 at 2018, Line Care, Flush with a minimum of 20 mL after IVPB to insure complete administration of the dose. May use the saline infusion to back flush IVPB tubing as needed. sodium chloride 0.9% syringe Intravenous, EVERY 12 HOURS SCHEDULED (2 times per day), First dose on Tue10/14/24 at 2100, Until Discontinued, Flush with 3-5 mL saline for PERIPHERAL saline lock maintenance. Given 10/24/2024 9:41 PM EDT 10 mL sodium chloride 0.9% syringe Intravenous, PRN, Starting on Tue10/14/24 at 1730, Until Milvia 10/25/24 at 2018, Line Care, Flush with 5-10 mL saline pre/post IVP, and 5 mL prior to IVPB or blood product administration. sterile water injection 1 mL 1 mL, Injection, PRN, Starting on Tue10/12/24 at 1931, Until Milvia 10/25/24 at 2018, Use for drug dilution, Use to dilute and administer glucagon injection documented in this encounter Discontinued Medications Medication [...] dose on Tue10/13/24 at 0130, Until Discontinued 09 (Given - Provider: Niya Monteiro, KERRY)2035 (Given - Provider: Apolonia Waters, KERRY) 111 (Given - Provider: Leola Chun, KERRY)2139 (Given - Provider: Lisa Trejo RN) 0815 (Given - Provider: Barbara Headley, KERRY) apixaban (ELIQUIS) tablet 5 mg 5 mg, Oral, 2 TIMES DAILY, First dose on Tue10/25/24 at 0900, Until Discontinued 814 (Given - Provider: Barbara Headley, RN) aspirin chewable tablet 81 mg 81 mg, Oral, DAILY, First dose on Tue10/23/24 at 0900, Until Discontinued 09 (Given - Provider: Niya Monteiro RN) 1114 (Given - Provider: Leola Chun, KERRY) 0815 (Given - Provider: Barbara Headley, KERRY) atorvastatin (LIPITOR) tablet 40 mg 40 mg, Oral, NIGHTLY, First dose on Tue10/13/24 at 0000, Until Discontinued 2035 (Given - Provider: Apolonia Waters, KERRY) 214 (Given - Provider: Lisa Trejo, RN) cephALEXin (KEFLEX) capsule 500 mg 500 mg, Oral, EVERY 6 HOURS SCHEDULED (4 times per day), 40 doses, First dose on Tue10/17/24 at 1400, Last dose on Tue10/27/24 at 0600, Reason for Therapy: Infection Documented, Indication: DFI/osteomyelitis, Skin/soft tissue 0546 (Given - Provider: Apolonia Waters, KERRY)1210 (Given - Provider: Niya Monteiro RN)1842 (Given - Provider: Niya Monteiro RN)2310 (Given - Provider: Apolonia Waters, KERRY) 0549 (Given - Provider: Apolonia Waters, KERRY)1114 (Given - Provider: Leola Chun, KERRY)1820 (Given - Provider: Leola Chun, KERRY) 0043 (Given - Provider: Lisa Trejo, KERRY)0524 (Given - Provider: Lisa Trejo, KERRY)1147 (Given - Provider: Barbara Headley, KERRY) clopidogreL (PLAVIX) tablet 75 mg 75 mg, Oral, DAILY, First dose on Tue10/23/24 at 0900, Until Discontinued 0901 (Given - Provider: Niya Monteiro RN) 1114 (Given - Provider: Leola Chun, KERRY) 0815 (Given - Provider: Barbara Headley, KERRY) doxycycline hyclate (VIBRA-TABS) tablet 100 mg 100 mg, Oral, EVERY 12 HOURS SCHEDULED (2 times per day), 40 doses, First dose on Tue10/17/24 at 1400, Last dose on Tue11/05/24 at 2100, Reason for Therapy: Infection Documented, Indication: DFI/osteomyelitis, Skin/soft tissue 0901 (Given - Provider: Niya Monteiro, KERRY)203 (Given - Provider: Apolonia Waters, KERRY) 111 (Given - Provider: Leola Chun, KERRY)2140 (Given - Provider: Lisa Trejo, KERRY) 0815 [...] for IV use. Supplied by [facility] 0900 (Given - Provider: Leola Chun RN) 0922 (Not Given - Provider: Barbara Headley RN - Reason: Patient Declined) insulin aspart U-100 [...] Waste Container 0908 (Given - Provider: Niya Monteiro RN)1332 (Not [...] not eating dinner)2205 (Given - Provider: Lisa Trejo RN) 0920 (Given - Provider: Barbara Headley, RN)1309 (Not Given - Provider: Barbara Headley RN [...] of insulin. Waste Sort Code = BLACK [place] Hazardous Waste Container 0909 (Given - Provider: Niya Monteiro RN)1332 (Not Given - Provider: Niya Monteiro RN - Reason: Patient Declined - Comment: ate full meal before bs check, said he didnt want this dose becasue he was lower this morning and didnt eat much prior)1844 (Given - Provider: Niya Monteiro RN - [...] Code = BLACK [place] [employer] Waste Container 1914 (Not Given - Provider: Leola Chun RN - Reason: Other - Comment: patient refusing dinner)2140 (Given - Provider: Lisa Trejo, KERRY) 09 (Given - Provider: Barbara Headley, RN)1309 (Not Given - Provider: Barbara Headley, KERRY - Reason: Patient Declined - Comment: on discharge, not eating here) insulin glargine U-100 (LANTUS) injection 40 Units (CANCELED) 40 Units, Subcutaneous, EVERY EVENING (INSULIN), First dose (after last modification) on Milvia 10/18/24 at 1900, Until Discontinued, Do not mix with other insulins A blood sugar is not required prior to administering the Lantus dose. Assess the trend of blood sugars within the last 24 hours. If 2 out of 3 blood sugars are less than (<) 120, contact pharmacy to decrease the total Lantus dose by 20%. Waste Sort Code = BKC 1844 (Given - Provider: Niya Monteiro RN) [...] by 20%. Waste Sort Code = BK 1899 (Given - Provider: Leola Chun RN) isosorbide mononitrate (IMDUR) CR tablet 30 mg 30 mg, Oral, NIGHTLY, First dose on Tue10/13/24 at 0000, Until Discontinued 2035 (Given - Provider: Apolonia Waters, KERRY) 2139 (Given - Provider: Lisa Trejo, KERRY) lisinopriL (PRINIVIL;ZESTril) tablet 20 mg 20 mg, Oral, DAILY, First dose (after last modification) on 10/15/24 at 0900, Until Discontinued, +++ACEI Medication+++ 900 (Given - Provider: Niya Monteiro RN) 1113 (Given - Provider: Leola Chun, KERRY) 814 (Given - Provider: Barbara Headley, KERRY) metoprolol (LOPRESSOR) tablet 50 mg 50 mg, Oral, 2 TIMES DAILY, First dose on 10/13/24 at 0900, Until Discontinued, Hold for HR <60 Preferably taken with or immediately following meals. Take consistently with relation to food. 900 (Not Given - Provider: Niya Monteiro RN - Reason: Order parameters not met)2099 (Not Given - Provider: Apolonia Waters RN - Reason: Order parameters not met) 1113 (Given - Provider: Leola Chun RN)2140 (Given - Provider: Lisa Trejo RN) 814 (Not Given - Provider: Barbara Headley RN - Reason: Order parameters not met) miconazole (MICATIN) 2 % powder Topical, 2 TIMES DAILY, 84 doses, First dose on Tue10/14/24 at 0900, Last dose on 11/24/24 at 2100, Application site: groin/coccyx 0908 (Given - Provider: Niya Monteiro RN)2035 (Given - Provider: Apolonia Waters, KERRY) 899 (Given - Provider: Leola Chun, KERRY)2140 (Given - Provider: Lisa Trejo, KERRY) 08 (Given - Provider: Barbara Headley, KERRY) morphine (MS CONTIN) CR tablet 45 mg 45 mg, Oral, EVERY 12 HOURS SCHEDULED (2 times per day), First dose on 10/13/24 at 0900, Until Discontinued, Do Not Crush Or Chew 900 (Given - Provider: Niya Monteiro RN)2035 (Given - Provider: Apolonia Waters, KERRY) 1113 (Given - Provider: Leola Chun, KERRY)2139 (Given - Provider: Lisa Trejo, KERRY) 0815 (Given - Provider: Barbara Headley, RN) pregabalin (LYRICA) capsule 300 mg 300 mg, Oral, 2 TIMES DAILY, First dose (after last modification) on 10/13/24 at 0900, Until Discontinued 09 (Given - Provider: Niya Monteiro, RN)2035 (Given - Provider: Apolonia Waters, RN) 111 (Given - Provider: Leola Chun, KERRY)2139 (Given - Provider: Lisa Trejo, KERRY) 0815 (Given - Provider: Barbara Headley, RN) sodium chloride 0.9% syringe Intravenous, EVERY 12 HOURS SCHEDULED (2 times per day), First dose on 10/14/24 at 2100, Until Discontinued, Flush with 3-5 mL saline for PERIPHERAL saline lock maintenance. 0900 (Not Given - Provider: Niya Monteiro RN - Reason: IV Infusing)2034 (Given - Provider: Apolonia Waters, KERRY) 09 (Not Given - Provider: Leola Chun, KERRY - Reason: IV Infusing)2140 (Given - Provider: Lisa Trejo, KERRY) 0817 (Not Given - Provider: Barbara Headley, KERRY - Reason: Loss of IV access) Continuous [...] Monteiro, RN)0851 (IV Restarted - Provider: Niya Monteiro, RN)0858 (Rate/Dose Verify - Provider: Niya Monteiro, RN)1850 (IV Paused - Provider: Niya Monteiro, RN - Comment: iv leaking)2034 (IV Restarted - Provider: Apolonia Waters RN) 0144 (Stopped - Provider: Apolonia Waters RN - Comment: [Order ends at this time. Document the following action when infusion is complete: Stopped]) heparin 25,000 units in 250 mL 0.45% NaCl (CANCELED) 950 Units/hr (9.5 mL/hr), Intravenous, CONTINUOUS, Starting on Tue10/23/24 at 1900, Until Tue10/24/24 at 0808 2035 (New Bag - Provider: Apolonia Waters RN) 1111 (Stopped - Provider: Leola Chun RN - Comment: [Order ends at this time. Document the following action when infusion is complete: Stopped]) heparin 25,000 units in 250 mL 0.45% NaCl (CANCELED) 1,600 Units/hr (16 mL/hr), Intravenous, CONTINUOUS, Starting on Tue10/24/24 at 0945, Until Tue10/25/24 at 0727 1112 (IV Restarted - Provider: Leola Chun RN)1112 (Rate/Dose Verify - Provider: Lisa Trejo RN)1555 (Rate/Dose Change - Provider: Leola Chun RN)1601 (Rate/Dose Verify - Provider: Lisa Trejo RN)1927 (Rate/Dose Verify - Provider: Lisa Trejo RN)2143 (New Bag - Provider: Lisa Trejo RN)2150 (Rate/Dose Change - Provider: Lisa Trejo RN) 0746 (Stopped - Provider: Barbara Headley RN) PRN Medication Order 10/23/2024 10/24/2024 10/25/2024 acetaminophen (TYLENOL) tablet 650 mg 650 mg, Oral, EVERY 4 HOURS PRN, Starting on Tue10/12/24 at 1932, Until Milvia 10/25/24 at 2018, Pain, Headaches, Fever, Maximum adult dose of acetaminophen is 4000 mg from all sources in 24 hours. dextrose 50 % solution 25 mL 25 mL, Intravenous, PRN, Starting on Tue10/12/24 at 1931, Until Milvia 10/25/24 at 2018, Low blood sugar, If FSBS less than 70 mg/dl and patient cannot take orally, Check FSBS every 15 minutes and repeat 25 mL of D50 IV push and notify physician if FSBS less than 70 mg/dL VESICANT diphenhydrAMINE (BENADRYL) injection 25 mg 25 mg, Intravenous, EVERY 4 HOURS PRN, Starting on Tue10/14/24 at 2234, Until Tue10/25/24 at 2017, Itching glucagon (GLUCAGEN) injection 1 mg(Linked Group [...] on Tue10/14/24 at 1322, Until Tue10/25/24 at 2017, High Blood Pressure, SBP >160 morphine injection [...] Count Last Ordered Date First Ordered Date apixaban (ELIQUIS) tablet 5 mg 1 10/25/2024 heparin 25,000 units in 250 mL 0.45% NaCl 2 10/24/2024 10/23/2024 insulin aspart U-100 (NovoLO G) injection 6 Units 1 10/24/2024 insulin glargine U-100 (LANT US) injection 45 Units 1 10/24/2024 0.9 % NaCl infusion 1 10/23/2024 aspirin chewable tablet 81 mg 1 10/23/2024 clopidogreL (PLAVIX) tablet 75 mg 1 025 ENSURE High Protein oral supplement 1 Each 1 10/23/2024 morphine injection 1-2 mg 2 10/23/2024 oxyCODONE-acetaminophen (PER COCET) 5-325 mg per tablet 1-2 Tablet 1 10/23/2024 clopidogreL (PLAVIX) tablet 300 mg 1 2024 fentaNYL (SUBLIMAZE) injection 1 10/22/2024 heparin (porcine) injection 1 10/22/2024 iopamidoL (ISOVUE-370) 370 m g iodine /mL (76 %) injection (LOW) 115 mL 1 10/22/2024 lidocaine 10 mg/mL (1 %) injection (PF) 1 0 10/22/2024 midazolam (VERSED) injection 1 10/22/2024 insulin aspart U-100 (NovoLO G) injection 3 Units 1 10/18/2024 insulin glargine U-100 (LANT US) injection 40 Units 1 10/18/2024 cephALEXin (KEFLEX) capsule 500 mg 1 2024 doxycycline hyclate (VIBRA-T ABS) tablet 100 mg 1 10/17/2024 insulin glargine U-100 (LANT US) injection 35 Units 1 10/17/2024 insulin glargine U-100 (LANT US) injection 30 Units 1 10/16/2024 vancomycin (VANCOCIN) 1,750 mg in sodium chloride 0.9 % 550 mL IVPB 1 10/16/2024 enoxaparin (LOVENOX) injection 40 mg 1 09/28 insulin aspart U-100 (NovoLO G) injection 1-15 Units 2 10/15/2024 insulin glargine U-100 (LANT US) injection 20 Units 1 10/15/2024 vancomycin in dextrose 5% (V ANCOCIN) premix IVPB 1,500 mg 2 10/15/2024 10/12/2024 dexAMETHasone (DECADRON) 40 mg in sodium chloride 0.9 % IVPB 1 10/14/2024 dimenhyDRINATE (DRAMAMINE) 1 2.5-50 mg in sodium chloride 0.9% injection 1 10/14/2024 diphenhydrAMINE (BENADRYL) injection 25 mg 1 10/14/2024 droPERidol (INAPSINE) injection 0.625 mg 1 10/14/2024 fentaNYL (SUBLIMAZE) injection 50 mcg 1 hydrALAZINE (APRESOLINE) tablet 25 mg 1 HYDROmorphone (DILAUDID) injection 0.25 mg 1 10/14/2024 insulin aspart U-100 (NovoLO G) injection 1-6 Units 1 10/14/2024 lisinopriL (PRINIVIL;ZESTril) tablet 20 mg 1 10/14/2024 miconazole (MICATIN) 2 % powder 1 ondansetron (ZOFRAN) injection 4 mg 2 10/1410/12/2024 [...] mL 1 10/14/2024 sodium chloride 0.9% syringe 2 10/14/2024 acetaminophen (TYLENOL) tablet 1,000 mg 1 0 10/13/2024 insulin aspart U-100 (NovoLO G) injection 1-10 Units 2 10/13/2024 10/12/2024 lactated ringers infusion 1 10/13/2024 lidocaine-PF 1% (5 mL), BUPi vacaine-PF 0.5% (5 mL) in 10 mL syringe 2 10/13/2024 morphine (MS CONTIN) CR tablet 45 mg 1 09/28 pregabalin (LYRICA) capsule 300 mg 1 2024 acetaminophen (TYLENOL) tablet 650 mg 1 amLODIPine (NORVASC) tablet 5 mg 1 10/13/19 atorvastatin (LIPITOR) tablet 40 mg 1 10/12 ceFEPIme (MAXIPIME) 1 g/50 mL IVPB 1 2024 ceFEPIme (MAXIPIME) 2 g in s terile water 19 mL IVP 1 10/12/2024 dextrose 50 % solution 25 mL 1 10/12/2024 glucagon (GLUCAGEN) injection 1 mg 1 2024 insulin glargine U-100 (LANT US) injection 10 Units 1 10/12/2024 isosorbide mononitrate (IMDU R) CR tablet 30 mg 1 10/12/2024 lisinopriL (PRINIVIL;ZESTril) tablet 10 mg 1 10/12/2024 metoprolol (LOPRESSOR) tablet 50 mg 1 10/12 metroNIDAZOLE (FLAGYL) IVPB 500 mg 2 2024 morphine (MSIR) immediate re lease tablet 15 mg 1 10/12/2024 pregabalin (LYRICA) capsule 150 mg 1 2024 sodium chloride 0.9 % 1,000 mL IV bolus 1 0 10/12/2024 sodium chloride 0.9% IV line flush 50 mL 1 10/12/2024 sodium chloride 0.9% syringe 5-10 mL 1 09/28 sodium zirconium cyclosilica te (LOKELMA) packet 5 g 1 10/12/2024 sterile water injection 1 mL 1 10/12/2024 vancomycin (VANCOCIN) 2,000 mg in sodium chloride 0.9 % 550 mL IVPB 1 10/12/2024 Nursing Count Last Ordered Date [...] documented as of this encounter Care Teams Grocery Team Member Relationship Specialty Start Date End Date Beck Lazar MD PCP - General Family Medicine 12/18/22 documented as of this encounter
--- OUTSIDE RECORDS SUMMARY | 2024-10-14 08:02 | XMS_ITS | Encounter Summary ---
Author Organization [place] [address] Care Team Providers Care Director Of Corporate Responsibility Name Role Phone Beck Lazar MD Primary Care Provider [phone] Reason for Visit * Auth/Cert/Inpt (Routine) Specialty Diagnoses / Procedures Referred By Contac t Referred To Contact Diagnoses Diabetic foot infection (HCC) Referral ID Status Reason Start Date Expiration Date Visits Re quested Visits Authorized [id number] 1 1 Encounter Details Date Type Department Care Team (Late st Contact Info) Description 10/14/2024 8:02 AM EDT Anesthesia Event EDG PERIOP [facility] [place] [id number] Chemo Morin MD [address] [place] [address] Hal Dela Cruz MD [address] [place] [address] [address] [place] [address] Anesthesia Record Procedure Summary Procedure Name Responsible Anesthesiologist Anesthesia Start Time Anesthesia Stop Time INCISION AND DRAINAGE, FOOT (Right: Foot/Ankle) Chemo Morin MD 10/14/24 0802 10/14/24 0832 Events Date Time Event Comment 10/14/2024 0742 0756 AN Equip Check 0802 An Start 0805 An Start Data 0805 Start Supplemental O2 Disabl es direct capture of O2 [ANES AGENT O2 [8716056663] and Air flow [ANES AGENT AIR [[id number]] variables into chart. 0806 Immediate Pre Anesthetic Ass es 0806 Anesthesia Ready 0810 Oral Airway Placed 0813 Time out 0814 Incision 0827 an stop data 0832 An Stop 0832 Handoff I completed my SBAR handoff to the receiving nurse which has included the followin. Identification of the patient, family, or patient surrogate 2. Identification of the responsible practitioner 3. Pertinent medical history 4. Surgical procedure and reason for procedure 5. Intraoperative anesthetic management 6. All current lines, drains and respiratory support. 7. Outstanding follow up orders (X-rays, consults etc) 8. Expectations/Plans for the early post-procedure period 9. 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 Lines, Drains, and Airways Type Details Placement Removal Incision/Wound 07/12/24; 2199; Yes; Diabetic ulcer; Foot; Right, Anterior; diabetic ulcer, right foot and right toe; 10/25/24; 201207/12/242199 by Doreen Mackey RN 10/25/242012 by Discharge Provider, Automatic Peripheral IV 10/12/24; 1758; 20; Left; Antecubital; mike murray rn; 1; 10/22/24; 0825; Removed by patient; Other (comment), No Complications (IV was taken out by other) 10/12/24 1758 by Mega Headley RN 10/22/24 0825 by Gema Sousa RN Incision/Wound 10/12/24; 0; Yes; Skin tear; Pretibial; Distal, Right; Open wound on pretibial, possible skin tear; 10/25/24; 201210/12/242199 by Doreen Mackey RN 10/25/242012 by Discharge Provider, Automatic Incision/Wound 10/12/24; 2200; Yes; Abrasion(s); Toe; Left, Anterior; left toe, eschar/ redness.; 10/25/24; 201210/12/242199 by Doreen Mackey RN 10/25/242012 by Discharge Provider, Automatic Incision/Wound 10/12/24; 2200; Yes; Diabetic ulcer; Foot; Right, Anterior; diabetic ulcer, right toe; 10/25/24; 201210/12/24 2200 by Doreen Mackey RN 10/25/242012 by Discharge Provider, Automatic Incision/Wound 10/12/24; 2200; Clos ed Surgical; Groin; Left, Proximal, Anterior; Dressing covering, gauze and tegaderm.; 10/25/24; 1340 10/12/24 2200 by oDreen Mackey RN 10/25/24 1340 by Barbara eHadley, KERRY External Urinary Catheter 10/13/24; 0600; Doreen c/Tristin S; Male Purewick; 10/18/24; 199910/13/24 0600 by Doreen Mackey RN 10/18/241999 by Pat Wynn RN Incision/Wound 10/13/24; 2200; Othe r (Comment); Coccyx; DTI; 10/15/24; 1525 10/13/24 2200 by Deidra Fuentes RN 10/15/24 1525 by Kelsy Colvin RN Incision/Wound 10/14/24; 0814; Open Surgical; Foot; Right; 10/25/24; 201210/14/24 0814 by Apurva Barillas RN 10/25/242012 by Discharge Provider, Automatic documented in this encounter Social History Tobacco Use Types Packs/Day Years Used Date Smoking Tobacco: Every Day Cigarettes 1 40.7 Started: 1962; Last attempted to quit: 1989 Cigars Smokeless Tobacco: Never Comments:Cigarettes-quit 200 2 but still smokes cigars Alcohol Use Standard Drinks/Week Comments No 0 (1 standard drink = 0.6 oz pur e alcohol) [facility] Utilities Answer Date Recorded In the past 12 months has [employer] electric, gas, oil, or water company threatened to shut off services in your home? No 08/26/2023 Overall Financial Resource Strain (CARDIA) Answe r Date Recorded How hard is it for you to pa y for the very basics like food, housing, medical care, and heating? Not hard at all 08/26/2023 PHQ-2 Answer Date Recorded PHQ-2 Total Score 0 08/26/2023 [facility] [place] [facility] - Occupational Stress [...] things needed for daily living? No 08/12/2022 [facility] IP Transportation Answer D ate Recorded [...] on file documented as of this encounter Functional Status * Is the person deaf or does [...] of Assessment Author No 12/16/2016 2:35 PM EDT Vicky Barnett RN * Because of a physical, mental or emotional condition, does this person have difficulty doing errands alone such as visiting a doctor's office or shopping? Answer Date of Assessment Author No 12/16/2016 2:35 PM EDT Vicky Barnett RN documented as of this encounter Mental Status * Because of a physical, mental or emotional condition, does this person have serious difficulty concentrating, remembering or making decisions? Answer Entry Date Author No 12/16/2016 2:35 PM EDT Vicky Barnett RN documented in this encounter OR Notes * Anesthesia Postprocedure Evaluation - Chemo Morin MD - 10/14/2024 9:53 AM EDT Post-Anesthesia Evaluation Note Patient Name: Lopez Lanza Sr. Patient Date: October 14, 2024 Post-Anesthesia Evaluation Patient Location: PACU Post op vitals: stable Difficult airway: no Nausea controlled: yes Level of consciousness: awake and alert Post anesthesia pain: adequate analgesia Long acting local anesthetic: n/a Airway patency: patent Respiratory status: nasal canula and spontaneous ventilation Cardiovascular status: stable Hydration status: euvolemic Temperature: Normothermia Perioperative complications: NONE Vitals Value Taken Time BP 163/62 10/14/24 09:00 Resp 12 10/14/24 09:00 SpO2 90 % 10/14/24 09:00 Temp 36.3 ??C (97.4 ??F) 10/14/24 09:00 Pulse 60 10/14/24 09:00 * Anesthesia Preprocedure Evaluation - Chemo Morin MD - 10/13/2024 4:16 PM EDT Pre-Anesthesia Evaluation Note Patient Name: Lopez Lanza Sr. Sex: male Patient : 1945 Age: 79 y.o. Patient Date: October 13, 2024 Procedure(s): INCISION AND DRAINAGE, FOOT (Right: Foot/Ankle) Vitals: 10/13/24 0949 BP: 145/63 Pulse: 66 Resp: 18 Temp: 36.8 ??C (98.2 ??F) SpO2: 97% Anesthesia Evaluation Previous anesthesia. No history of anesthetic complications: No family history of anesthesia complications: Airway Mallampati: III TM distance: >3 FB Neck ROM: full No increased risk of difficult airway Dental Dental exam findings: upper dentures and lower dentures Pulmonary (+) COPD: History of tobacco use (40.6 pk-yrs): current Physical exam: Comments: Clear to auscultation (-) no asthma, no sleep apnea, no URI cough sputum Cardiovascular (+)Exercise tolerance: Walks around the house Uses wheelchair for outings Hypertension: well controlled Hyperlipidemia CAD/GA (PCI 2001): Coronary Stents Valvular problems/murmurs: Murmur Peripheral arterial disease (s/p left common iliac artery stent 08/24/23): Peripheral Stents Physical exam: Rhythm: regular Rate: normal (-) no angina, no shortness of breath Neuro/Psych Comments: Chronic pain (+) Psychiatric history: Depression and Anxiety Back or neck pain: Spinal Stenosis Peripheral neuropathy (-) seizures and no cerebrovascular disease GI/Hepatic/Renal Comments: Malignant neoplasm of urinary bladder (+)GERD/PUD: (-) no cirrhosis, no chronic kidney disease Endo/Other (+): 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 Last clear liquid intake: The patient has not had clear liquids within the last 2 hours. Anesthesia Plan: MAC Induction: intravenous Monitors: STD PONV Risk Score: 1. Score of 0-1 is Low Risk for PONV, antiemetic prophylaxis is not indicated but may still be given. Informed consent Anesthetic plan and risks discussed with: patient. Perioperative Code Status DNR suspended, Full Code: Chart Reviewed documented in this encounter Plan of Treatment Upcoming Encounters Date Type Department Care Team (Late st Contact Info) Description 11/21/2024 10:45 AM EDT Appointment [facility] [address] [place] [id number] [employer] Kruger DPM [address] [facility] [place] [address] documented as of this encounter Visit Diagnoses Not on filedocumented in this encounter Administered Medications Inactive Administered Medications - up to 1 most recent administrations Medication Order MAR Action Action Date Dose Rate Site propofol (DIPRIVAN) infusion 10 mg/mL Intravenous, CONTINUOUS PRN, Starting on 10/14/24 at 0807, Until 10/14/24 at 0832, Anesthesia Intra-op Rate/Dose Change 10/14/2024 8:11 AM EDT 50 mcg/kg/min 29.04 mL/hr propofoL (DIPRIVAN) injection Intravenous, PRN (Anesthesia), Starting on 10/14/24 at 0808, Until 10/14/24 at 0832, Anesthesia Intra-op Given 10/14/2024 8:08 AM EDT 30 mg documented in this encounter Additional Health Concerns Assessment Noted Time A fall risk assessment has been complete d for the patient 04/07/2018 12:48 PM EST documented as of this encounter Care Teams Director Of Corporate Responsibility Relationship Specialty Start Date End Date Beck Lazar MD PCP - General Family Medicine 12/18/22 documented as of this encounter
--- OUTSIDE RECORDS SUMMARY | 2024-10-31 09:10 | XMS_ITS | Encounter Summary ---
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) Procedures NE DEBRIDEMENT MUSCLE &/FASCIA 1ST 20 SQ CM/< [employer] Kruger DPM [address] [place] [address] Phone: tel: fax: Referral ID Status Reason Start Date Expiration Date V isits Requested Visits Authorized [id number] Pending Review 10/31/2024 10/31/2025 1 1 * In Office Procedure (Routine) - Pending Review Specialty Diagnoses / Procedures Referred By Contac t Referred To Contact Diagnoses 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, with fat layer exposed (HCC) Procedures NE DEBRIDEMENT SUBCUTANEOUS TISSUE 1ST 20 SQ CM/< [employer] Kruger DPM [address] [place] [address] Phone: tel: fax: Referral ID Status Reason Start Date Expiration Date V isits Requested Visits Authorized [id number] Pending Review 10/31/2024 10/31/2025 1 1 * (Routine) - Pending Review Specialty Diagnoses / Procedures Referred By Moriahac t Referred To Contact Diagnoses 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, with fat layer exposed (HCC) Procedures [facility] [employer] Kruger DPM [address] [place] [address] Phone: tel: fax: Referral ID Status Reason Start Date Expiration Date V isits Requested Visits Authorized [id number] Pending Review 10/31/2024 10/31/2025 1 1 Reason for Visit * Reason Comments Wound Check * Consultation (Routine) - Authorization Not Needed Specialty Diagnoses / Procedures Referred By Moriahac t Referred To Contact Wound Care Diagnoses Wound Care Procedures NE DEBRIDEMENT SUBCUTANEOUS TISSUE 1ST 20 SQ CM/< NE DEBRIDEMENT MUSCLE &/FASCIA 1ST 20 SQ CM/< NE DEBRIDEMENT BONE 1ST 20 SQ CM/< NE DEBRIDEMENT SUBCUTANEOUS TISSUE EA ADDL 20 SQ CM NE DEBRIDEMENT MUSCLE &/FASCIA EA ADDL 20 SQ CM NE DEBRIDEMENT BONE EACH ADDITIONAL 20 SQ CM NE DEBRIDEMENT OPEN WOUND FIRST 20 SQ CM/< NE DEBRIDEMENT OPN WND EA ADDL 20 SQ CM/PRT THEREOF [facility] [address] [place] [address] Phone: tel: fax: Referral ID Status Reason Start Date Expiration Date Visits Requested Visits Authorized [id number] Authorization Not Needed Specialty Services Required 10/31/2024 10/31/2025 99 99 Encounter Details Date Type Department Care Team (Latest Contact Info) Description 10/31/2024 9:10 AM EDT - 10/31/2024 11:59 PM EDT Hospital Encounter [facility] [address] [place] [address] [employer] [facility]ger DPM [address] [place] [address] Diabetic ulcer of left midfoot associated with type 2 diabetes mellitus, 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 No 08/12/2022 [facility] IP Transportation Answer D ate Recorded In [...] Sign Reading Time Taken Comments Blood Pressure 148/43 10/31/2024 9:39 AM EDT Pulse 70 10/31/2024 9:39 AM EDT Temperature 36.3 C (97.4 F) 10/31/2024 9:39 AM EDT Respiratory Rate 18 10/31/2024 9:39 AM EDT Oxygen Saturation - - Inhaled Oxygen Concentration - - Weight - - Height - - Body Mass Index - - documented in this encounter Functional Status * Is the [...] No 12/16/2016 2:35 PM Vicky Manning RN documented as of this encounter Mental Status * Because of a physical, mental or emotional condition, does this person have serious difficulty concentrating, remembering or making decisions? Answer Entry Date Author No 12/16/2016 2:35 PM EDT Vicky Barnett RN documented in this encounter Medications at Time [...] 1 10/25/2024 12:55 PM EDT 10/25/2024 Insulin [place], Disposable, 32 gauge x 5/32 [facility] Need[facility] Use as directed to inject insulin(s) 5 times daily. 100 Each 10/25/2024 isosorbide mononitrate (IMDUR) 30 mg Oral Tablet Sustained Release 24 hr Take 30 mg by mouth every morning. Lancets [facility] Lancet 100, meter 1, strips 100 [...] hours for 30 days. 60 Tablet 10/25/2024 09/27/202 5 oxyCODONE (ROXICODONE) 5 mg Oral Tablet [...] g 10/25/2024 12:55 PM EDT 10/25/2024 5 doxycycline hyclate (VIBRA-TABS) 100 mg Oral Tablet Take 1 Tablet by mouth every 12 hours for 23 doses. 23 Tablet 10/25/2024 12:55 PM EDT 10/25/2024 5 documented as of this encounter Discharge Disposition Disposition Code Departure Means Destination Home or Self Care documented in this encounter Progress Notes * [employer] K[facility] DPM - 10/31/2024 9:30 AM EDT Images from the original note were not included. Date of Visit:10/31/2024 Progress Note HPI Lopez Aquino is a 79 y.o. year old male patient who presents today for wound evaluation and follow-up. Patient has a right anterior leg and right dorsal midfoot arterial and diabetic ulcer(s) which is (are) located on the right foot and right leg. Symptoms include none. Patients past medical, family and social histories were reviewed and updated. There were no changesexcept as noted. ROS See HPI for further details. Relevant review of systems otherwise negative. Physical Exam Vitals: 10/31/24 0939 BP: 148/43 Pulse: 70 Resp: 18 Temp: 97.4 ??F (36.3 ??C) TempSrc: Forehead Ulcer Progress and Procedure Please refer to the LDA for details of ulcer progress and procedure. Assessment and Plan Lopez Aquino was seen today for wound check. 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 Continue standard ulcer therapy of this Diabetic ulcer of lower extremity and Arterial ulcer mayinclude lab work: n/a,imaging:n/a, vascular testing:n/a, and interventions of: Staged debridement, Edema control/ compression, Off- loading, and Appropriate dressing selection. 2. If, after 30 days of standard ulcertherapy, no significant wound area reduction has been achieved, potential advanced therapies to be considered for the treatment of this ulcer include:Cellular and tissue based products. 3. Discussed appropriate care of this ulcer: Glucose management and Prevention of reoccurrence. 4. Patient instructions were given 5. Follow- up 1 week. Improved. Status post revascularization. Not able to close primarily. Would benefit from 3C patch. Will check for approval. documented in this encounter Miscellaneous Notes * Patient Instructions - Chiquita Epps RN - 10/31/2024 9:30 AM EDT HOME-CARE INSTRUCTIONS FOLLOWING YOUR WOUND CARE VISIT: Please thoroughly read through your after visit summary for your Home-Care instructions related to your visit with us. Our wound care clinic team strives to heal your wound as quickly as possible with you as a huge part of that team. Phone numbers are listed at the end of your paperwork for who to call if you have any issues at home. We hope your wound care visit was excellent! If there were any issues during your visit, please askto speak with a member of the leadership team. Please keep in mind your follow up visits will take an average of 1 hour per visit from start to finish. Please note if you have paperwork that needs to be completed by our office for you such as disability, FMLA, etc... We will need 7-10 days to complete. Paperwork is not able to be completed the same day. Follow Up Information: Follow up in the Wound Care Center in one week with Dr. Kruger. Your provider is planning to implement using the 3C patch graft on your wound next week. Below are instructions on what to expect at your next appointment: Please be sure to be hydrated prior to your appointment next week as we will draw a blood sample tocreate your 3C patch. Drink at least 1-2 glasses of water the morning of your appointment. When you arrive we will assess your wound to be sure everything is still good for application. If the provider agrees we will plan for the procedure. We will obtain a blood sample in the wound care clinic. The process to create the patch can take 20-30 minutes (sometimes longer). All of this occurs in the wound care center. When the patch is finished the provider will apply it to your wound and we will cover with a dressing. [facility] to assess wound and change dressing twice a week. No showers or immersing in water. Skin moisturizer to esteban wound. Xeroform Instructions Location:Right lower leg and right dorsal foot Frequency: 3 times a week Wash your hands and apply gloves. Cleanse wound with saline. Cut xeroform dressing with clean scissors to fit wound size. Apply dressing to wound bed. Cover with dry gauze and roll gauze. 4 and 6 inch luz wrap from base of toes to knee, not too tight. Offloading Instructions Lower Extremities Wear a surgical shoe to right foot when up walking. Keep weight off Right foot as much as possible. Use offloading equipment or special shoes/boots as ordered by your physician. Off-loading means no weight-bearing on an extremity. If your doctor suggests that you should ???off-load?? , he or she means that you are not to walk or bear weight on the extremity that has a wound,or the extremity where a wound appears likely to develop. WHY DO I HAVE TO OFF-LOAD? When you have a non-healing wound, you must do everything possible to give your body a chance to heal the wound. The weight of your body when you walk puts a large amount of pressure on your feet andankles. This pressure keeps the new tissue from growing and inhibits new blood vessels from forming. If you continue to bear weight on a body part that has a wound, the time it takes to heal the wound increases, or, worse yet, the wound may not heal at all! You may also be asked to ???off-load?? if you have problems with fluid retention that makes your feet and legs swell. People with chronic venous stasis have a higher risk of wounds developing on their legs when the fluids in their legs increase. If you have this condition, your doctor may suggest that you ???off-load?? as well. HOW DO I OFF-LOAD? There are a number of ways to off-load your legs and feet. The easiest way is to stay in bed, but of course, that isn???t always possible. In some cases, however, bedrest is absolutely the best way to prevent further problems and your doctor may suggest this option for you. You may also be prescribed a special shoe to allow you to be up on your feet periodically, but keeppressure off the wound when you are. The shoe is meant to be used for balance and stability but is not intended for walking! You may be prescribed crutches, a walker, or wheelchair to use with the shoe. Once your wound is healed, you may need help to prevent new wounds from developing. Sometimes special shoes fitted to your foot by an lands resource manager or other professional may be prescribed. You may also have special splints or heel protectors to wear in bed to keep pressure off your feet and ankles. In cases of fluid retention, you???ll need to avoid standing and walking as much as possible. Your legs need to be elevated above the level of your heart to prevent fluid accumulation. Propping your feet on a regular footstool won???t work! Sometimes a recliner with pillows works when sitting. At night, you might elevate the foot of your bed on cinder blocks to get your feet up. Off-loading is an important part of your wound treatment program. It is a part that only you can assure is accomplished. If you have any concerns about methods to off-load your wound, or feel that you might have trouble following the off- loading plan prescribed for you, talk to your doctor so that alternatives can be discussed that will work in your situation. Check wound and surrounding skin for signs and symptoms of infection, such as fever, increase in redness, increase in amount of drainage or a foul odor from the drainage. Should you experience any ofthe above symptoms, notice a significant change in the wound, or have questions or problems following these instructions, please contact the Wound Care Center. If you smoke it is important for your wound care to stop smoking. Cigarette smoking and nicotine can restrict blood flow to the wound and slow healing. Take a multivitamin daily as prescribed and follow a nutritious diet. Increase the protein in your diet if you do not have restrictions. You may be contacted by mail or e-mail to participate in a patient satisfaction survey regarding your visit today. We value your opinion and depend on your feedback to make improvements and provide the best possible experience. Your time in completing this survey is greatly appreciated. If you haveany issues during your visit with us please feel free to contact the nursing leadership at any of our offices to address immediate concerns. If you are in need of refills of any types of any types of medication that we have prescribed. It is best to contact your pharmacy to send a refill request electronically to our office. This is the best way to get your provider the information the most timely. Please note if you have paperwork that needs to be completed by our office for you such as disability, FMLA, etc... We will need 7-10 days to complete. Paperwork is not able to be completed on the same day. WHO TO CALL FOR PROBLEMS: Please call the wound care center with any problems or issues you may have after your visit or withany questions that may come up throughout the week. You can speak with a nurse or leave a non-urgent message for nursing using option #2. Each patient is assigned a showcase trimmer who can assist with issues you may be having. Phones operate 8:00 am-4:30 pm Tuesday through Tuesday. We are closed on the s. If you call after normal business hours and leave a message; please allow for up to 24 business hours fora response. Please do not leave any type of ???urgent?? messages on voicemail. We have an on-call nurse line available after-hours that can be reached by calling the main office number. Pressing option 3 after hours will transfer you to the nurse now helpline for after-hours immediate live support. Individual office numbers are listed below. Please follow the prompts. Office numbers: [phone] AbhinavMaru Xuvcvi-[phone] Basilio- [phone] Protein is essential for wound healing. Protein can be found in meat, fish, yogurt, nuts, and peanut butter. Try to consume 80-100 grams of protein a day, unless instructed otherwise by your physician. Read your labels carefully. You can find additional information in your wound care information folder. We recommend 80-100 GRAMS OF PROTEIN PER DAY unless otherwise instructed by your provider: Protein Rich foods Typical Serving [place] butter 2 tablespoons = 7 grams protein Almonds 1 ounce = 6 grams protein Root (cooked) 1 slice - 3 grams protein Beans (cooked legumes) 1/2 cup = 7 grams protein Beef, ground (cooked 95% lean) 3 ounces = 23 grams protein Beef, steak (sirloin) 3 ounces = 23 grams protein Cashew 1 ounce = 5 grams protein Cheese (varies by type) 1 ounce = 7 grams protein Jasmeet seeds 1 ounce = 4.7 grams protein Chicken breasts 4 ounces = 36 grams protein Chicken thighs 4 ounces = 28 grams protein Cottage cheese (2%) 1/2 cup = 13 grams protein Edamame (cooked) 1 cup = 17 grams protein Egg whites 1 large = 3.6 grams protein Eggs 1 large = 6 grams protein Fish, Cod 3 ounce = 15 grams protein Fish, halibut (cooked) 3 ounce = 19 grams protein Fish, salmon (cooked) 3 ounce = 21 grams protein Fish, Tilapia 3 ounce = 22 grams Arabic Yogurt nonfat (varies by brand) 1 cup = 24 grams protein Hemp seeds 3 tablespoons (30 g) = 9 grams protein Hummus (varies by brand or recipe) 2 tablespoons = 2 grams of protein Peanut butter 2 tablespoons = 7 grams protein Peanuts 1 ounce = 7 grams protein Quay nuts 1 ounce = 4 grams protein Pork chops (lean, cooked) 3 ounces = 18 grams protein Pork, tenderloin 3 ounces = 22 grams protein Protein Powder (whey) 38 grams (1 scoop) = 30 grams protein pumpkin seeds 1 ounce = 5 grams protein Refried beans 1/2 cup = 7 grams protein Ricotta Cheese (part skim) 1/2 cup = 14 grams protein Shrimp (cooked) 3 ounces = 19 grams protein Divide seeds 1/4 cup = 6 grams protein Tempeh 1 cup = 31 grams protein Tofu 1/2 cup = 10 grams protein Tuna 3 ounces = 24 grams protein [place] breast 3 ounces = 26 grams protein [place], deli meat 4 ounces = 20 grams protein [place], ground (93% lean) 3 ounces = 16.5 grams protein Yogurt (lowfat, plain) 1 cup = 11 grams *Check the Nutritional Information label to verify for accurate serving size and nutritional values. documented in this encounter Plan of Treatment Upcoming Encounters Date Type Department Care Team (Late st Contact Info) Description 11/21/2024 10:45 AM EDT Appointment [facility] [address] 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 Author Wound Healing General On track(2024 5:58 PM EDT) No Chiquita Epps RN Note: Wound Care Goals Patient is an active participant in their wound care plan. Patient is attending wound care visits regularly as recommended by physician. Patient is following instructions on treatment plan including follow up appointments, dressing change recommendations, pressure relief if applicable, smoking cessation if applicable, monitoring of blood sugar and diet. Patient notifies wound care staff of any problems. Wound volume reduction goals 50% by week 4 50% by week 8 80% by week 12 100% by week 14 Nursing Diagnosis: Impairment of skin integrity as evidence by open wound. Risk for infection related to open wound. Nursing Interventions to assist with healing of Diabetic Wounds Assess pain status. Assess wound size, esteban wound, drainage and odor. Educate patient and caregivers on signs and symptoms of infection, wound care and importance of prompt treatment. Assess patient/caregiver level of knowledge regarding diabetes, risk factors and diabetic foot care. Assess for peripheral edema. If present , measure ankle, calf and foot circumference on initial visit and as indicated. Assess pedal pulses on each visit. Use doppler if unable to palpate dorsalis pedal or posterior tibial pulses. Obtain initial physician orders for Diabetic Wounds to include HgbA1C, prealbumin, offloading, ankle-brachial index per vascular lab and appropriate dressing to maintain microenvironment conducive to healing. Assess for signs and symptoms of peripheral neuropathy weekly. Refer to PCP and/or Breakfast Host, Vascular Specialist as indicated. Monitor patient compliance with wound care, diabetes management and proper offloading. 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, with fat layer exposed (HCC) Diabetic polyneuropathy associated with type 2 diabetes mellitus (HCC) Diabetic leg ulcer (HCC) Type II or unspecified type diabetes mellitus with other specified manifestations, not stated as uncontrolled documented in this encounter Orders Nursing Count Last Ordered Date First Orde red Date [facility] 1 10/31/2024 documented in this encounter Additional Health Concerns Assessment Noted Time A fall risk assessment has been complete d for the patient 04/07/2018 12:48 PM EST documented as of this encounter Care Teams Caretaker Relationship Specialty Start Date End Date Beck Lazar MD PCP - General Family Medicine 12/18/22 documented as of this encounter
--- OUTSIDE RECORDS SUMMARY | 2024-11-07 10:48 | XMS_ITS | Encounter Summary ---
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, with fat layer exposed (HCC) Procedures AMB [facility] PRIMARY DRESSING [employer] DPM [address] [place] [address] Phone: tel: fax: Referral ID Status Reason Start Date Expiration Date V isits Requested Visits Authorized [id number] Pending Review 11/07/2024 11/07/2025 1 1 * In Office Procedure (Routine) - Pending Review Specialty Diagnoses / Procedures Referred By Contac t Referred To Contact Diagnoses 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 2 diabetes mellitus, 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 necrosis (HCC) Procedures WV DEBRIDEMENT MUSCLE &/FASCIA 1ST 20 SQ CM/< [employer] DPM [address] [place] [address] Phone: tel: fax: Referral ID Status Reason Start Date Expiration Date V isits Requested Visits Authorized [id number] Pending Review 11/07/2024 11/07/2025 1 1 * In Office Procedure (Routine) - Pending Review Specialty Diagnoses / Procedures Referred By Donna walton Referred To Contact Diagnoses 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, with fat layer exposed (HCC) Procedures WV DEBRIDEMENT SUBCUTANEOUS TISSUE 1ST 20 SQ CM/< [employer] DPM [address] [place] [address] Phone: tel: fax: Referral ID Status Reason Start Date Expiration Date V isits Requested Visits Authorized [id number] Pending Review 11/07/2024 11/07/2025 1 1 Reason for Visit * Consultation (Routine) - Authorization Not Needed Specialty Diagnoses / Procedures Referred By Donna walton Referred To Contact Wound Care Diagnoses Wound Care Procedures WV DEBRIDEMENT SUBCUTANEOUS TISSUE 1ST 20 SQ CM/< WV DEBRIDEMENT MUSCLE &/FASCIA 1ST 20 SQ CM/< WV DEBRIDEMENT BONE 1ST 20 SQ CM/< WV DEBRIDEMENT SUBCUTANEOUS TISSUE EA ADDL 20 SQ CM WV DEBRIDEMENT MUSCLE &/FASCIA EA ADDL 20 SQ CM WV DEBRIDEMENT BONE EACH ADDITIONAL 20 SQ CM WV DEBRIDEMENT OPEN WOUND FIRST 20 SQ CM/< WV DEBRIDEMENT OPN WND EA ADDL 20 SQ CM/PRT THEREOF [facility] [address] 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, with fat layer exposed (HCC) (Primary Dx); Diabetic polyneuropathy associated with type 2 diabetes mellitus (HCC); Diabetic ulcer of toe of right foot associated with type 2 diabetes mellitus, unspecified ulcer stage (HCC); 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 2 diabetes mellitus, 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 necrosis (HCC) Discharge Disposition: Home or Self Care Social History Tobacco Use Types Packs/Day Years Used Date Smoking Tobacco: Every Day Cigarettes 1 40.7 Started: 1962; Last attempted to quit: 1989 Cigars Smokeless Tobacco: Never Comments:Cigarettes-quit 200 2 but still smokes cigars Alcohol Use Standard Drinks/Week Comments No 0 (1 standard drink = 0.6 oz pur e alcohol) [facility] Utilities Answer Date Recorded In the [...] Date Recorded PHQ-2 Total Score 0 10/16/2024 [facility] [place] of Occupat ional Health - Occupational Stress [...] things needed for daily living? No 08/12/2022 [facility] IP Transportation Answer D ate Recorded [...] Sign Reading Time Taken Comments Blood Pressure 119/41 11/07/2024 11:15 AM EDT Pulse 53 11/07/2024 11:15 AM EDT Temperature 36.3 C (97.4 F) 11/07/2024 11:15 AM EDT Respiratory Rate 18 11/07/2024 11:15 AM EDT Oxygen Saturation - - Inhaled [...] 1 10/25/2024 12:55 PM EDT 10/25/2024 Insulin [place], Disposable, 32 gauge x 5/32 [facility] Use as directed to inject insulin(s) 5 times daily. 100 Each 10/25/2024 isosorbide mononitrate (IMDUR) 30 mg Oral Tablet Sustained Release 24 hr Take 30 mg by mouth every morning. Lancets [facility] Lancet 100, meter 1, strips 100 [...] 71 g 10/25/2024 12:55 PM EDT 10/25/2024 documented as of this encounter Discharge Disposition Disposition Code Departure Means Destination Home or Self Care documented in this encounter Progress Notes * [employer] DPM - 11/07/2024 11:00 AM EDT Images from the original note were not included. Date of Visit:11/07/2024 Progress Note HPI Lopez Aquino is a 79 y.o. year old male patient who presents today for wound evaluation and follow-up. Patient has a right anterior leg and right dorsal midfoot arterial and diabetic ulcer(s) which is (are) located on the right foot and right leg. Symptoms include none. New wounds on right toes. States they began as a callus. Patients past medical, family and social histories were reviewed and updated. There were no changesexcept as noted. ROS See HPI for further details. Relevant review of systems otherwise negative. Physical Exam Vitals: 11/07/24 1115 BP: 119/41 Pulse: 53 Resp: 18 Temp: 97.4 ??F (36.3 ??C) TempSrc: Temporal Patient verbally consented permission allowing todays photograph - using the [place] adriana. Ulcer Progress and Procedure Please refer to the LDA for details of ulcer progress and procedure. 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 Continue standard ulcer therapy of this [...] were given 5. Follow- up 1 week. Right dorsal foot and right lowe leg improved. New wounds right toes. Status post revascularization. Not able to close primarily. 3C patch approved. Plan to place next week. Note written by KASSIDY Todd acting as scribe for [employer] DPM I have reviewed this note and it accurately reflects my work and decisions made during this visit [employer] DPM. documented in this encounter Miscellaneous Notes * Patient Instructions - Apurva King RN - 11/07/2024 11:00 AM EDT HOME-CARE INSTRUCTIONS FOLLOWING YOUR WOUND [...] Center in one week with Dr. Kruger. 3C approved will do plan on next week starting series Your provider is planning to implement using [...] and we will cover with a dressing. [facility] to assess wound and change dressing twice [...] shoes fitted to your foot by an oil operator or other professional may be prescribed. You [...] option #2. Each patient is assigned a case repairer who can assist with issues you may [...] below. Please follow the prompts. Office numbers: [phone] [facility] [phone] [facility] [phone] Protein is essential for wound healing. Protein [...] your provider: Protein Rich foods Typical Serving [place] butter 2 tablespoons = 7 grams protein [...] Fish, Tilapia 3 ounce = 22 grams Turkish Yogurt nonfat (varies by brand) 1 cup = 24 grams protein Hemp seeds 3 tablespoons (30 g) = 9 grams protein Hummus (varies by brand or recipe) 2 tablespoons = 2 grams of protein Peanut butter 2 tablespoons = 7 grams protein Peanuts 1 ounce = 7 grams protein Pearblossom nuts 1 ounce = 4 grams protein [...] (cooked) 3 ounces = 19 grams protein [place] seeds 1/4 cup = 6 grams protein Tempeh 1 cup = 31 grams protein Tofu 1/2 cup = 10 grams protein Tuna 3 ounces = 24 grams protein Meredith breast 3 ounces = 26 grams protein Meredith, deli meat 4 ounces = 20 grams protein Meredith, ground (93% lean) 3 ounces = 16.5 grams protein Yogurt (lowfat, plain) 1 cup = 11 grams *Check the Nutritional Information label to verify for accurate serving size and nutritional values. documented in this encounter Plan of Treatment Upcoming Encounters Date Type Department Care Team (Late st Contact Info) Description 11/21/2024 10:45 AM EDT Appointment [facility] [address] 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 Author Wound Healing General On track(2024 5:58 PM EDT) Chiquita Lomeli RN Note: Wound Care Goals Patient is [...] peripheral neuropathy weekly. Refer to PCP and/or Taxi Cab Driver, Vascular Specialist as indicated. Monitor patient compliance with wound care, diabetes management and proper offloading. 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) documented in this encounter Administered Medications Inactive Administered Medications - up to 1 most recent administrations Medication Order MAR Action Action Date Dose Rate Site lidocaine (XYLOCAINE) 5 % ointment Topical, ONCE, 1 dose, On Tue11/07/24 at 1130, Application site: foot Given 11/07/2024 11:40 AM EDT documented in this encounter Orders Medications Ordered That Nate ht Not Have Been Administered Count Last Ordered Date First Ordered Date lidocaine (XYLOCAINE) 5 % ointment 2024 Nursing Count Last Ordered Date First Orde red Date AMB [facility] PRIMARY DRESSING 11/07/2024 documented in this encounter Additional Health Concerns Assessment Noted Time A fall risk assessment has been complete d for the patient 04/07/2018 12:48 PM EST documented as of this encounter Care Teams Batch Dumper Relationship Specialty Start Date End Date Beck Lazar MD PCP - General Family Medicine 12/18/22 documented as of this encounter
--- OUTSIDE RECORDS SUMMARY | 2024-11-16 18:05 | XMS_ITS | Encounter Summary ---
Author Organization [place] [address] Care Team Providers Care Oil Separator Name Role Phone Randi Olivares MD, Damián Primary Care Provider + Beck Lazar MD Primary Care Provider [phone] Encounter Details Date Type Department Care Team (Late st Contact Info) Description 08/08/2007 Orders Only [facility] [place] [address] [place] [address] Clement Arias MD Social History Tobacco Use Types Packs/Day Years Used Date Smoking Tobacco: Never Assessed Sex and Gender Information Value Date Recorded Sex Assigned at Not on file Legal Sex Male 8:50 PM EDT Gender Identity Not on file Sexual Orientation Not on file documented as of this encounter Plan of Treatment Upcoming Encounters Date Type Department Care Team (Late st Contact Info) Description 11/21/2024 10:45 AM EDT Appointment [facility] [address] [place] [address] [employer]ruger DPM [address] [place] [address] documented as of this encounter Procedures Procedure [...] a practice prior to that practice using [facility] for Medical Records. Performing Provider: TABITHA Clement [...] documented as of this encounter Care Teams Oil Separator Relationship Specialty Start Date End Date Damián Bryan MD [address] [place] [id number] PCP - General Family Medicine 01/07/13 12/17/22 Beck Lazar MD [address] [place] [address] PCP - General Family Medicine 12/18/22 documented as of this encounter
[2024-11-16 18:06] VITALS: BP 92/69; PULSE 55; RESP 18; TEMP 37; O2SAT 96; BMI 27.3
--- OUTSIDE RECORDS SUMMARY | 2024-11-16 18:07 | XMS_ITS | Encounter Summary ---
Author Organization [place] [address] Care Team Providers Care Traffic Warehouse Supervisor Name Role Phone Beck Lazar MD Primary Care Provider [phone] Reason for Visit * Reason Onset Date Comments Follow-up 10/30/2024 Encounter Details Date Type Department Care Team (Late st Contact Info) Description 10/30/2024 Telephone [facility] [address] [place] [address] [employer]ger, CRES[employer] [address] [place] [address] Follow-up Social History Tobacco Use Types Packs/Day Years Used Date Smoking Tobacco: Every Day Cigarettes 1 40.7 Started: 1962; Last attempted to quit: 1989 Cigars Smokeless Tobacco: Never Comments:Cigarettes-quit 200 2 but still smokes cigars Alcohol Use Standard Drinks/Week Comments No 0 (1 standard drink = 0.6 oz pur e alcohol) [facility] Utilities Answer Date Recorded In the past 12 months has e electric, gas, oil, or water company threatened to shut off services in your home? No 10/16/2024 Overall Financial Resource Strain (CARDIA) Answe r Date Recorded How hard is it for you to pa y for the very basics like food, housing, medical care, and heating? Not hard at all 10/16/2024 PHQ-2 Answer Date Recorded PHQ-2 Total Score 0 10/16/2024 [facility] [place] of Occupat ional Health - Occupational Stress [...] things needed for daily living? No 08/12/2022 [facility] IP Transportation Answer D ate Recorded [...] Vicky Barnett RN documented in this encounter Miscellaneous Notes * Telephone Encounter - Porfirio Astrid [place] - 10/30/2024 12:54 PM EDT Spoke with patient's son about $350 outpatient surgery co-pay. I explained that this could be assessed per visit depending upon the treatment received. I also told patient's son that [facility] has financial assistance programs to look in to. Pt's son verbalized understanding. documented in this encounter Plan of Treatment Upcoming Encounters Date Type Department Care Team (Late st Contact Info) Description 11/21/2024 10:45 AM EDT Appointment [facility] [address] [place] [address] [employer] Kruger DPM [address] [place] [address] documented as of this encounter Visit Diagnoses Not on filedocumented in this encounter Additional Health Concerns Assessment Noted Time A fall risk assessment has been complete d for the patient 04/07/2018 12:48 PM EST documented as of this encounter Care Teams Traffic Warehouse Supervisor Relationship Specialty Start Date End Date Beck Lazar MD PCP - General Family Medicine 12/18/22 documented as of this encounter
--- NOTE | 2024-11-16 18:08 | PC.NURSE ---
FSBS is 323 at this time
--- OUTSIDE RECORDS SUMMARY | 2024-11-16 18:09 | XMS_ITS | Encounter Summary ---
Author Organization [facility] [place] [address] Care Team Providers Care Motor Grader Operator Name Role Phone Beck Lazar MD Primary Care Provider [phone] Encounter Details Date Type Department Care Team (Latest Contact Info) Description 10/12/2024 Travel Social History Tobacco Use Types Packs/Day Years Used Date Smoking Tobacco: Every Day Cigarettes 1 40.7 Started: 1962; Last attempted to quit: 1989 Cigars Smokeless Tobacco: Never Comments:Cigarettes-quit 200 2 but still smokes cigars Alcohol Use Standard Drinks/Week Comments No 0 (1 standard drink = 0.6 oz pur e alcohol) [facility] Utilities Answer Date Recorded In [...] Date Recorded PHQ-2 Total Score 0 08/26/2023 [facility] [place] of Occupat ional Health - Occupational Stress [...] things needed for daily living? No 08[facility]12/2022 [facility] IP Transportation Answer D ate Recorded [...] as of this encounter Functional Status * Drug Screening [...] you had started? 0 10/12/2024 9:46 PM LIANNET Doreen Gonsales RN How often during the last ye ar have you failed to do what was normally expected of you because of drinking? 0 10/12/2024 9:46 PM LIANNET oDreen Mackey RN How often during the last ye ar have you needed a first drink in the morning to get yourself going after a heavy drinking session? 0 10/12/2024 9:46 PM Rolo Cramer RN How often during the last [...] Author No Risk 10/12/2024 9:46 PM EDT Anne Marie Mackey RN * [place] Suicide Severity Rating Scale (Q shift for moderate and high) Question Answer Date of Assessment Author 1. In the past month, have y ou wished you were or wished you could go to sleep and not wake up? 0 10/12/2024 9:46 PM EDT Doreen Fracno RN 2. In the past month, have y ou actually had any thoughts of killing yourself? (If no, skip to question 6) 0 10/12/2024 9:46 PM EDT Doreen Mackey, Homer N 6. Have you ever done anythi [...] Vicky Barnett RN documented in this encounter Plan of Treatment Upcoming Encounters Date Type Department Care Team (Late st Contact Info) Description 11/21/2024 10:45 AM EDT Appointment [facility] [address] [place] [address] [employer] Kruger DPM [facility] [place] [address] documented as of this encounter Visit Diagnoses Not on filedocumented in this encounter Additional Health Concerns Assessment Noted Time A fall risk assessment has been complete d for the patient 04/07/2018 12:48 PM EST documented as of this encounter Care Teams Motor Grader Operator Relationship Specialty Start Date End Date Beck Lazar MD PCP - General Family Medicine 12/18/22 documented as of this encounter
--- OUTSIDE RECORDS SUMMARY | 2024-11-16 18:09 | XMS_ITS | Clinical Summary ---
Author Organization [facility] Address [address] [place] [address] Care Team Providers Care Adjunct Teacher Name Role Phone Unavailable Primary Care Provider [...] therelease of HIV test results or diagnoses. [id number] Social History Tobacco Use Types Packs/Day Years Used Date Smoking Tobacco: Never Assessed Sex and Gender Information Value Date Recorded Sex Assigned at Not on file Legal Sex Male 8:57 PM EST Gender Identity Not on file Sexual Orientation Not on file Plan of Treatment Not on file Insurance [employer]VANTAGE
--- OUTSIDE RECORDS SUMMARY | 2024-11-16 18:09 | XMS_ITS | Clinical Summary ---
Author Organization [facility] Address [address], [address] [place] [address] Care Team Providers Care Blade Filer Name Role Phone Unavailable Primary Care Provider [...] on file Medical Devices Implanted Type Area Clay Artisan Device Identifier Shelf Expiration Date Model / [...]
--- NOTE | 2024-11-16 18:35 | XR_ITS ---
PROCEDURE INFORMATION: Exam: XR Chest Exam date and time: 11/16/2024 6:44 PM Age: 79 years old Clinical indication: Shortness of breath; Additional info: Short of breath TECHNIQUE: Imaging protocol: Radiologic exam of the chest. Views: 1 view. COMPARISON: XA CL BOLUS NEO UNILAT AORTA 10/11/2024 6:58 AM FINDINGS: Lungs: Unremarkable. No consolidation. Pleural spaces: Unremarkable. No pleural effusion. No pneumothorax. Heart/Mediastinum: Mildly enlarged cardiac silhouette allowing for AP technique. Vasculature: Atherosclerotic plaquing aortic arch. Bones/joints: Unremarkable. IMPRESSION: No acute findings.
--- NOTE | 2024-11-16 18:36 | ED_ITS ---
<Statement entered by Jack Arceo MD - 11/17/24 03:01> I was consulted by the MELISSA, and we discussed the complexity of the problems being addressed. I approve the treatment and management plan for this patient's care in the emergency department, thus performing a substantive portion of the medical decision making. Jack Arceo MD Discharge Plan Disposition Patient Disposition: Home, Self-Care Prescriptions Prescriptions: No Action aspirin [Adult Aspirin Regimen] 81 mg tablet,delayed release (DR/EC) 81 mg PO DAILY (DME) pen needle, diabetic [Unifine Pentips] 31 gauge x 3/16 needle See Rx Instructions .Route Qty: 100 2RF Rx Instructions: As directed insulin glargine [Lantus Solostar U-100 Insulin] 100 unit/mL (3 mL) insulin pen 65 unit SQ HS Qty: 15 10RF cilostazol 50 mg tablet 50 mg PO BID Qty: 60 12RF isosorbide mononitrate 30 mg tablet extended release 24 hr 30 mg PO DAILY Qty: 90 3RF metoprolol tartrate 50 mg tablet 50 mg PO BID Qty: 180 2RF metformin 500 mg tablet 500 mg PO TID Qty: 90 3RF pregabalin [Lyrica] 150 mg capsule 300 mg PO BID Qty: 120 5RF lisinopril 10 mg tablet 10 mg PO DAILY Qty: 90 1RF morphine 15 mg tablet extended release 45 mg PO BID PRN (Reason: pain) Qty: 90 0RF oxycodone 5 mg tablet 5 mg PO Q4H PRN (Reason: pain) Qty: 90 0RF atorvastatin 40 mg tablet 40 mg PO HS amlodipine 5 mg tablet 5 mg PO DAILY clopidogrel [Plavix] 75 mg Tablet 75 mg PO DAILY 30 Days Qty: 30 3RF Referrals Follow up/Referrals: Beck Lazar MD [Primary Care Provider, Family Practice] - See instructions Activity Restrictions/Add. Instructions Additional Instructions/Restrictions: Increase fluids and rest. Take Keflex as directed. Please see Dr. Lazar in follow-up next week. Clinical Impressions Clinical Impression: Urinary tract infection Bladder cancer Qualifiers: Bladder location: unspecified site Qualified Code(s): C67.9 - Malignant neoplasm of bladder, unspecified Hematuria Qualifiers: Hematuria type: gross Qualified Code(s): R31.0 - Gross hematuria Instructions Patient Instructions: Urinary Tract Infection, Bladder Cancer Print Language Print Language: Azerbaijani Discharge ED Provider: Jack Arceo General Adult HPI General Chief complaint: Weakness Stated complaint: involuntary twitches Time Seen by Provider: 11/16/24 18:21 Mode of Arrival: Ambulatory Source of Information: Patient and Relative Description of Symptoms (Recalled from ER Triage Doc. by RN): pt started shaking 11/14 and it has gradually gotten worse. abx therpy in september for rt foot wound. pt is diabetic and sugars have been high since doc dc metformin. pt also has bladder ca History of Present Illness HPI narrative: 79-year-old male presents to the ED today for shaking for the past 2 days. He says this has gotten worse. He has no pain. He denies any fevers or chills. He is on antibiotics for a right foot wound that has been treated by wound care. He is a diabetic. Patient does have bladder cancer. Patient does have history of stents, hypertension, peripheral artery disease and neuropathy, PVD, CAD, chronic pain. Related Data Home Medications ?Medication ?Instructions ?Recorded ?Confirmed aspirin 81 mg tablet,delayed 81 mg PO DAILY 05/22/20 0 10/11/24 release (Adult Aspirin Regimen) amlodipine 5 mg tablet 5 mg PO DAILY 10/11/2410/11 atorvastatin 40 mg tablet 40 mg PO HS 10/11/24 5 Previous Rx's ?Medication ?Instructions ?Recorded pen needle, diabetic 31 gauge x #100 ea 01/14/2205/13 (Unifine Pentips) insulin glargine 100 unit/mL (3 65 unit (0.65 mL) SQ H S #15 mL 12/16/23 mL) subcutaneous pen (Lantus Solostar U-100 Insulin) cilostazol 50 mg tablet 50 mg PO BID #60 tabs isosorbide mononitrate 30 mg 30 mg PO DAILY Chest pain #90 tabs 03/26/24 tablet,extended release 24 hr metoprolol tartrate 50 mg tablet 50 mg PO BID #180 tab s 04/16/24 metformin 500 mg tablet 500 mg PO TID #90 tabs 07/11 pregabalin 150 mg capsule (Lyrica) 300 mg (2 x 150 mg) PO BID #120 08/01/24 caps clopidogrel 75 mg tablet (Plavix) 75 mg PO DAILY 30 da ys #30 tabs 10/11/24 lisinopril 10 mg tablet 10 mg PO DAILY #90 tabs 09/29 09/21 morphine 15 mg tablet,extended 45 mg (3 x 15 mg) PO BI D PRN pain 11/15/24 release #90 tabs oxycodone 5 mg tablet 5 mg PO Q4H PRN pain #90 tab s 11/15/24 Allergies Allergy/AdvReac Type Severity Reaction Status Date / Time No Known Allergies Allergy Verified 10/01/24 10:13 [facility] [place] Disclaimer: The information contained in this section may have been updated after the patient was seen, as this information can be updated by other users. Medical History Anxiety Bladder cancer Diabetes mellitus Dyslipidemia Essential hypertension Peripheral arterial disease Wound of right foot Encounter for pre-operative cardiovascular clearance Abnormal EKG Abnormal cardiovascular stress test Edema Coronary artery disease Surgical History Presence of stent in coronary artery Hx of heart artery stent History of amputation of toe Family History Other Cancer Coronary artery disease Diabetes Social History (Updated 10/11/24 @ 08:12 by Naman Mantilla RN) Smoking Status: Former smoker tobacco type: cigarettes packs per day: 2 alcohol intake: never substance use type: denies use current occupational status: retired Travel in the last 8 weeks?: None household members: children Have you lived/traveled outside [place] in past 30 days?: No Contact w/someone who lives/traveled outside [place] past 30 days?: No Exposure to someone with infectious disease in past 14 days?: No Do you have a fever (greater than 100.4 F or 38 C)?: No Have you tested positive for COVID-19?: No Exposed to someone with COVID-19 in past 14 days?: No Do you have a sore throat?: No Do you have a cough?: No Do you have any weakness?: No Do you have any diarrhea?: No Are you experiencing any unusual bleeding?: No Do you have any muscle aches/pain?: No Do you have any abdominal pain?: No Are you experiencing loss of taste or smell?: No Other Medical History Have you received the Flu Vaccine for this season: No Have you received the Pneumonia Vaccine: No ROS Obtained: Yes Systems reviewed as appropriate & no additional complaints except as documented Constitutional Constitutional: Reports as per HPI Physical Exam General General appearance: alert Comment: Is shaking Head Head exam: normocephalic Eye Eye exam: Present PERRL and EOMI ENT ENT exam: Present normal oropharynx and mucous membranes moist Neck Neck exam: Present full ROM and trachea midline Respiratory Respiratory exam: Present normal lung sounds bilaterally Cardiovascular Cardiovascular exam: Present normal rhythm, bradycardia, normal heart sounds, +S1 and +S2 Abdominal Exam Abdominal exam: Present soft and normal bowel sounds Extremities Exam Extremities exam: Present full ROM and edema Neurological Exam Neurological exam: Present alert and oriented X3 Skin Skin exam: Present warm and dry Medical Decision Making Medical Records Screening: Per USPSTF and CDC recommendations, given the prevalence of disease in our region, it is our hospital?s policy to screen for HIV and viral Hepatitis for all patients aged 18 and over and those with ongoing risk factors. Tam Inquiry Pt receiving controlled substance: No Tam was queried for this patient: No Vital Signs: 11/16/24 18:06 11/16/24 21:23 Temperature 98.6 F 98.0 F Temperature Source Oral Temporal Artery Scan Pulse Rate 90 Pulse Rate [Right Brachial] 55 L Respiratory Rate 18 20 Blood Pressure 127/51 L Blood Pressure [Right Arm] 92/69 L Blood Pressure Mean [Right Arm] 76 Blood Pressure Source Automatic Cuff Blood Pressure Position Sitting 02 Sat by Pulse Oximetry 96 Oxygen Delivery Method Room Air Room Air Lab Data Lab Results 11/16/24 18:25: WBC 6.6, RBC 3.82 L, Hgb 11.0 L, Hct 34.5 L, MCV 90.3, MCH 28.8, MCHC 31.9, RDW 15.1, Plt Count 171, MPV 11.4 H, Neut % (Auto) 55.4, Lymph % (Auto) 32.2, [place] % (Auto) 8.7, Eos % (Auto) 2.4, Baso % (Auto) 0.8, Neut # (Auto) 3.6, Lymph # (Auto) 2.1, [place] # (Auto) 0.6, Eos # (Auto) 0.2, Baso # (Auto) 0.1, VBG pH 7.27 L, VBG pCO2 68.3 H, VBG pO2 29.2, VBG HCO3 30.9 H, VBG Total CO2 33.0 H, VBG O2 Saturation 60.7, VBG Base Excess 4.1 H, VBG Lactic Acid 3.0 H, Sodium 133 L, Potassium 4.8, Chloride 95 L, Carbon Dioxide 29, Anion Gap 13.8, BUN 20, Creatinine 0.80, Estimated Creat Clear 76, Estimated GFR 93, Est GFR ( Amer) 113, Glucose 296 H, Lactate 2.4 H, Calcium 8.7, Magnesium 2.1, Total Bilirubin 0.4, AST 23, ALT 15, Alkaline Phosphatase 91, Total Protein 6.8, Albumin 3.6, Globulin 3.2, Albumin/Globulin Ratio 1.1, Lipase 34 11/16/24 18:50: SARS-CoV-2 (PCR) Not detected, Influenza A Untype (PCR) Not detected, Influenza Type B (PCR) Not detected 11/16/24 19:20: Urine Color Red, Urine Appearance Turbid, Urine pH 6.5, Ur Specific [place] 1.025, Urine Protein 3+ A, Urine Glucose (UA) 2+, Urine Ketones Trace, Urine Blood 3+ A, Urine Nitrate Positive A, Urine Bilirubin Negative, Urine Urobilinogen 2.0, Ur Leukocyte Esterase 1+ A, Urine RBC Tntc, Urine WBC 20-50, Ur Squamous Epith Cells 10-20, Urine Bacteria 1+ 11/16/24 18:25 11/16/24 18:25 Orders (Tests/Meds): ED MEDICATIONS Discontinued Medications Generic Name Dose Route Start Last Admin Trade Name Freq PRN Reason Stop Dose Admin Sodium Chloride 1,000 mls @ 999 mls/hr 11/16/24 18:34 11/16/24 19:59 Sod Chlor 0.9% 1000ml Bag IV 11/16/24 19:34 Infused .Q1H1M ONE Infusion Ceftriaxone Sodium 2 gm/ 100 mls @ 200 mls/hr 11/16/24 20:00 11/16/24 20:37 Sodium Chloride IV 11/26/24 19:59 Infused Q24H VIKTOR Infusion ORDERS Category Date Time Status Chest XR -- portable [XR chest portable] Stat Exams 11/16/24 18:35 Completed CBC [Complete Blood Count Auto Diff] Stat Lab 11/16/24 18:25 Completed Comprehensive Metabolic Panel Stat Lab 11/16/24 18:25 Completed Lactic Acid Stat Lab 11/16/24 18:25 Completed Lipase Stat Lab 11/16/24 18:25 Completed Magnesium Stat Lab 11/16/24 18:25 Completed Rapid PCR Covid and Flu A/B Stat Lab 11/16/24 18:50 Completed Urinalysis and Microscopic Stat Lab 11/16/24 19:20 Completed Blood Culture Stat Micro 11/16/24 19:42 Received Urine Culture Stat Micro 11/16/24 19:20 Received VBG [Venous Blood Gas] Stat RT 11/16/24 18:25 Completed Medical Decision Narrative: patient is a 79-year-old male presenting to the emergency department for evaluation of twitching for the last 2 days. Patient is hemodynamically stable and nontoxic-appearing upon arrival, afebrile. Differential diagnosis includes UTI, electrolyte disturbance, among others. Workup will be conducted with hematologic labs, specific imaging. Initial inventions include crystalloid bolus, analgesics, antibiotics. Initial workup reviewed by me lactate of initially 3.0 and repeat lactic of 2.4. Patient had a normal white count. Urine showed leukocytes and nitrates. Gave 2 g of Rocephin. Patient is in his room eating at this time. He wants to go home. His son states that he has Keflex at home and would like to treat him with that. That is appropriate for a UTI. I will allow them to use this 500 mg twice a day. Discussed this with son and patient. Discussed return precautions. Patient assured me that they would return if any worsening signs or symptoms occur. Patient will follow-up with Dr. Lazar next week. Patient safe for discharge home. Blood pressure is 127/51. Patient safe for discharge home. Critical Care Critical Care Time Critical Care Time: No
[2024-11-16 18:40] LABS: Hematocrit 34.5 % (42.0-52.0); Hemoglobin 11.0 g/dL (14.1-18.0); Immature Granulocytes % 0.5 %; Lactate Venous 3.0 mmol/L (0.4-2.0); Mean Corpuscular HGB Conc 31.9 g/dL (31.8-35.4); Mean Corpuscular Hemoglobin 28.8 pg (27.0-31.2); Mean Corpuscular Volume 90.3 fl (80-94); Nucleated Red Blood Cells % 0 %; Platelet Count 171 K/mm3 (142-424); Red Blood Count 3.82 M/mm3 (4.60-6.20); Red Cell Distribution Width-SD 49.8 fL; VBG HCO3 30.9 mmol/L (23-30); VBG PCO2 68.3 mmol/L (35-51); VBG PH 7.27 mmol/L (7.31-7.41); VBG PO2 29.2 mmol/L (28-40); White Blood Count 6.6 K/mm3 (4.8-10.8)
[2024-11-16 18:49] LABS: Albumin Level 3.6 g/dl (3.5-5.0); Chloride 95 mmol/L (98-107); Potassium 4.8 mmoL/L (3.5-5.1); Sodium 133 mmol/L (136-145)
--- NOTE | 2024-11-16 18:50 | PC.NURSE ---
patient provided urinal to collect urine sample
[2024-11-16 18:51] LABS: Alanine Aminotransferase 15 U/L (12-78); Anion Gap 13.8 mEq/L (5-15); Aspartate Amino Transferase 23 U/L (17-59); Blood Urea Nitrogen 20 mg/dl (9-20); Carbon Dioxide 29 mmol/L (22.0-30.0); Creatinine Clearance Estimated 76 mL/min (50-200); Creatinine,Serum 0.80 mg/dl (0.66-1.25); Estimated Glomerular Filt Rate 93 ml/min (>60); GFR (African American) 113 ML/MIN (>60)
[2024-11-16 18:52] LABS: Albumin/Globulin Ratio 1.1 (1.1-1.8); Alkaline Phosphatase 91 U/L (38-126); Bilirubin,Total 0.4 mg/dl (0.2-1.3); Calcium 8.7 mg/dl (8.4-10.2); Globulin 3.2 g/dL (1.3-3.2); Glucose 296 mg/dl (74-100); Lipase 34 U/L (23-300); Magnesium 2.1 mg/dl (1.6-2.3); Total Protein,Serum 6.8 g/dl (6.3-8.2)
--- NOTE | 2024-11-16 18:53 | ECG_ITS ---
APPROVED REPORT Exam: Resting ECG HR:59 bpm ECG Measurements Heart Rate 59 AXES QRSd 94 QRS 56 QT 390 T 28 QTc 389 Conclusion SUPRAVENTRICULAR BRADYCARDIA LOW QRS VOLTAGE IN PRECORDIAL LEADS [QRS DEFLECTION < 1.0 mV IN CHEST LEADS] ABNORMAL RHYTHM ECG UNCONFIRMED REPORT NSR. No ST elevation or depression. baseline artifact present Electronically signed by : BASSAM ESTRADA, 11/17/2024 15:45:39
[2024-11-16] MEDS: 0.9 % SODIUM CHLORIDE 1000ML 1,000 ML 999 ML IV (18:55)
[2024-11-16 18:57] LABS: Coronavirus 19, PCR Not Detected (NotDetected); Influenza A, PCR Not Detected (NotDetected); Influenza B, PCR Not Detected (NotDetected)
[2024-11-16 19:27] LABS: Microscopic, Urine URINE MICROSCOPIC (MICROSCOPIC)
[2024-11-16 19:38] LABS: Bilirubin,Urine Negative (Negative); Glucose,Urine (UA) 2+ (Negative); Ketones,Urine TRACE (Negative); Leukocyte Esterase,Urine 1+ (Negative); PH,Urine 6.5 (5.0-8.5); Protein,Urine 3+ (Negative); Specific Gravity, Urine 1.025 (1.005-1.030); Urobilinogen,Urine 2.0 EU/dl (0.2)
[2024-11-16 19:40] LABS: Color,Urine Red (Yellow)
[2024-11-16 20:08] LABS: Bacteria,Urine 1+ /lpf; RBC,Urine TNTC #/hpf (0-3); WBC,Urine 20-50 #/hpf (0-3)
--- NOTE | 2024-11-16 20:46 | PC.NURSE ---
provided patient with diet pepsi and chips
[2024-11-16 21:23] VITALS: BP 127/51; PULSE 90; RESP 20; TEMP 36.7; O2SAT 100
[2024-11-16 22:40] LABS: Reflex Lactic Add Lactic Reflex
--- NOTE | 2024-11-18 06:29 | PC.NURSE ---
MD notified of urine culture preliminary results, MD looked at patient chart. Pt was not D/C with a new prescription for keflex but has an order for keflex at home and was instructed to take that by provider that seen the patient. MD stated no new prescription at this time until further results
--- NOTE | 2024-11-20 09:01 | PC.NURSE ---
URINE CULTURE DISCUSSED WITH DR VO, NO NEW ORDERS
== END 2024-11-16 21:31 | disposition home or self-care (01) ==
PROVIDERS: Nurse Practitioner; Emergency Provider Student in an Organized Health Care Education/Training Program; PCP Family Medicine
DX: N39.0 Urinary tract infection, site not specified (principal); R31.0 Gross hematuria; C67.9 Malignant neoplasm of bladder, unspecified; E11.9 Type 2 diabetes mellitus without complications; I10 Essential (primary) hypertension
CPT/HCPCS: 71045; 80053; 81001; 82803; 83605; 83690; 83735; 85025; 87040; 87086; 87088; 87186; 87636; 93005; 96365; 96367; 99284; J0696; J7030